=== PATIENT | male | born 1950 | race Caucasian/White ===

== ENCOUNTER 2017-02-23 13:17 | Inpatient (IN) | payer MEDICARE ==
[2017-02-23] VITALS (15 sets, daily range): BP systolic 92–126; BP diastolic 64–84; PULSE 77–100; RESP 16–28; TEMP 98.2–99; O2SAT 65–100
[~2017-02-23] VITALS: Ht 177.8 cm; Wt 92.7 kg
[~2017-02-23 13:17] MED LIST: ADVAI250I INH; ALBU2.5I INH; ASPI81 PO; CRES10TA OR; ENAL5TAB98 PO; FE FCAP2; IPRA0.02 NEB; LASI20TA PO; LORA10TA7 PO; MAGN500T4 PO; NEBUMIS6 INH; OMEP20TA PO; POTA10IN2 PO; PRED10 PO; RIVA20 PO; TOPR50TA PO; VITA1CAP2; Z.0.OXYGENDME NC
[2017-02-23] MEDS: RESP: ALBUTEROL 2.5 MG/IPRATROPIUM 0.5 MG NEB (SCH) INH ×4 (13:30→20:01)
[2017-02-23] MEDS ORDERED: methylPREDNISolone SOD SUCC 125 MG/2 ML VIAL IVP ONE (13:30)
--- NOTE | 2017-02-23 13:34 | PD ---
HPI Chief Complaint: shortness of breath Time Seen by Provider: 13:29 Travel History International Travel<30 days: No Contact w/Intl Traveler<30days: No Traveled to known affect area: No History of Present Illness HPI 66-year-old male complains of shortness of breath. Patient states that the shortness breath started 2 weeks ago. Patient states that she was breath is worse this morning. Patient has history of COPD. Patient has history of CAD status post pacemaker placement. Patient denies any chest pain. Patient denies any fever chills. Patient states that he took steroid inhaler in the past and make the shortness of breath worse. Patient has history hypertension, dyslipidemia. Patient is a smoker. Patient has history of atrial fibrillation PFSH Past Medical History Asthma: No Heart Rhythm Problems: Yes Cancer: No Cardiovascular Problems: Yes (COPD,CHF STENT TO RCA) High Cholesterol: Yes Chest Pain: Yes Congestive Heart Failure: No COPD: Yes Diabetes: No Diminished Hearing: No Endocrine: No Gastrointestinal Disorders: Yes (HX ULCER) Genitourinary: No Hepatitis: No Hiatal Hernia: No Hypertension: Yes Immune Disorder: No Musculoskeletal: Yes (ARTHRITIS) Neurologic: No Psychiatric: No Reproductive: No Respiratory: Yes (COPD, SLEEP APNEA/ NO CPAP) Sleep Apnea: No Thyroid Disease: No Past Surgical History Abdominal Surgery: Yes (APPY) AICD: No Appendectomy: Yes (1998) Body Medical Devices: HARDWARE LEFT FOREARM Cardiac Surgery: Yes (CABG) Coronary Artery Bypass Graft: Yes (2000) Ear Surgery: No Endocrine Surgery: No Eye Surgery: No Genitourinary Surgery: No Gynecologic Surgery: No Joint Replacement: No Oral Surgery: No Pacemaker: No Thoracic Surgery: No Social History Alcohol Use: Yes (6PACK WEEKLY) Tobacco Use: Yes (2PPD FOR 25 YEARS) Substance Use: No Allergies-Medications (Allergen,Severity, Reaction): Coded Allergies: No Known Allergies (Verified , 02/23/17) Reported Meds & Prescriptions Reported Meds & Active Scripts Active Reported Ferocon (Ferrous Fumarate W/ B12-Vit C-) 1 Cap Cap Omeprazole 20 Mg Tab 20 Mg PO DAILY Lisinopril 5 Mg Tab 5 Mg PO DAILY Atorvastatin (Atorvastatin Calcium) 40 Mg Tab 40 Mg PO HS Potassium Chloride ER (Potassium Chloride) 10 Meq Tab 10 Meq PO BID Furosemide 40 Mg Tab 40 Mg PO BID Ipratropium [place] 1 Pow Pow Albuterol Neb (Albuterol Sulfate) 2.5 Mg/3 Ml Neb 2.5 Mg NEB Q4HR NEB While awake Vitamin D3 (Cholecalciferol) 3,000 Unit Tab 3,000 Units PO DAILY Magnesium 500 Mg Tab 500 Mg PO DAILY Metoprolol Tartrate 50 Mg Tab 50 Mg PO BID Clopidogrel (Clopidogrel Bisulfate) 75 Mg Tab 75 Mg PO DAILY Vitamin C (Ascorbic Acid) 1,000 Mg Tab 1,000 Mg PO Claritin (Loratadine) 10 Mg Tab 10 Mg PO DAILY Aspirin 325 Mg Tab 325 Mg PO DAILY Review of Systems General / Constitutional: No: Fever Eyes: No: Visual changes HENT: No: Headaches Cardiovascular: No: Chest Pain or Discomfort Respiratory: Positive: Shortness of Breath, Wheezing Gastrointestinal: No: Abdominal Pain Genitourinary: No: Dysuria Musculoskeletal: No: Pain Skin: No Rash Neurologic: No: Weakness Psychiatric: No: Depression Endocrine: No: Polydipsia Hematologic/Lymphatic: No: Easy Bruising Physical Exam Narrative GENERAL: Well-nourished, well-developed patient. SKIN: Focused skin assessment warm/dry. HEAD: Normocephalic. EYES: No scleral icterus. No injection or drainage. NECK: Supple, trachea midline. No JVD or lymphadenopathy. CARDIOVASCULAR: Regular rate and rhythm without murmurs, gallops, or rubs. RESPIRATORY: Patient had decreased breath sounds bilaterally with expiratory wheezes. No rhonchi. GASTROINTESTINAL: Abdomen soft, non-tender, nondistended. MUSCULOSKELETAL: No cyanosis, or edema. BACK: Nontender without obvious deformity. No CVA tenderness. Neurologic exam normal. Started Data Data Last Documented VS Vital Signs Date Time Temp Pulse Resp B/P Pulse Ox O2 Delivery O2 Flow Rate FiO2 02/23/17 15:45 97 17 107/75 100 Auto-Vent 100 02/23/17 14:20 15 02/23/17 13:28 98.2 Orders Complete Blood Count With Diff (02/23/17 13:26) Comprehensive Metabolic Panel (02/23/17 13:26) Act Partial Throm Time (Ptt) (02/23/17 13:26) Prothrombin Time / Inr (Pt) (02/23/17 13:26) Magnesium (Mg) (02/23/17 13:26) Ckmb (Isoenzyme) Profile (02/23/17 13:26) Troponin I (02/23/17 13:26) Urinalysis - C+S If Indicated (02/23/17 13:26) Influenzae A/B Antigen (02/23/17 13:26) Iv Access Insert/Monitor (02/23/17 13:26) Electrocardiogram (02/23/17 13:26) Ecg Monitoring (02/23/17 13:26) Oximetry (02/23/17 13:26) Oxygen Administration (02/23/17 13:26) Chest, Single Ap (02/23/17 13:26) Sodium Chloride 0.9% Flush (Ns Flush) (02/23/17 13:30) Methylprednisolone So Succ Inj (Solumedr (02/23/17 13:30) Albuterol-Ipratropium Neb (Duoneb Neb) (02/23/17 13:30) Arterial Blood Gas (Abg) (02/23/17 ) CKMB (02/23/17 13:42) CKMB% (02/23/17 13:42) Etomidate Inj (Amidate Inj) (02/23/17 14:30) Rocuronium Inj (Zemuron Inj) (02/23/17 14:30) Propofol 1000 Mg/100 Ml Inj (Diprivan 10 (02/23/17 14:30) ^ Infusion (02/23/17 14:20) RASS (02/23/17 14:20) Neurological Rass Scale MARIEL.Q2H (02/23/17 14:20) Neurological Rass Scale Q30MX2,Q2HX4,Q4H (02/23/17 14:20) Fentanyl Drip (Fentanyl Drip) (02/23/17 14:30) Succinylcholine Inj (Quelicin Inj) (02/23/17 14:21) Propofol 1000 Mg/100 Ml Inj (Diprivan 10 (02/23/17 14:21) Urinary Catheter Insert/Apply (02/23/17 14:45) Torres-Gastric Tube Insert/Mon (02/23/17 14:45) Restraints Non-Violent MARIEL.Q3H (02/23/17 14:45) Cefepime Inj (Maxipime Inj) (02/23/17 15:00) Azithromycin Inj (Zithromax Inj) (02/23/17 15:00) Basic Metabolic Panel (Bmp) (02/23/17 14:57) Fentanyl Drip (Fentanyl Drip) (02/23/17 15:05) Sodium Chlor 0.9% 1000 Ml Inj (Ns 1000 M (02/23/17 16:00) Insulin Human Regular Inj (Novolin R Inj (02/23/17 16:00) Dextrose 50% In [place]bert (Vial) Inj (D50w (Vi (02/23/17 16:00) Calcium Gluconate Inj (Calcium Gluconate (02/23/17 16:00) Admit Order (Ed Use Only) (02/23/17 15:52) Labs Laboratory Tests Test 02/23/17 02/23/17 02/23/17 00:00 13:42 14:30 Blood Gas Puncture Site LT RADIAL Blood Gas Patient Temperature 98.6 Blood Gas HCO3 40 mmol/L Blood Gas Base Excess 10.5 mmol/L Blood Gas Oxygen Saturation 93 % Arterial Blood pH 7.14 Arterial Blood Partial 121 mmHg Pressure CO2 Arterial Blood Partial 141 mmHG Pressure O2 Arterial Blood Oxygen Content 23.9 Vol % Arterial Blood 3.7 % Carboxyhemoglobin Arterial Blood Methemoglobin 0.9 % Blood Gas Hemoglobin 18.2 G/DL Oxygen Delivery Device Non-Rebreathing Mask Blood Gas Liter Flow 15 L/M White Blood Count 7.0 TH/MM3 Red Blood Count 5.61 MIL/MM3 Hemoglobin 17.5 GM/DL Hematocrit 55.4 % Mean Corpuscular Volume 98.7 FL Mean Corpuscular Hemoglobin 31.3 PG Mean Corpuscular Hemoglobin 31.7 % Concent Red Cell Distribution Width 16.6 % Platelet Count 199 TH/MM3 Mean Platelet Volume 8.0 FL Neutrophils (%) (Auto) 69.6 % Lymphocytes (%) (Auto) 10.8 % Monocytes (%) (Auto) 18.9 % Eosinophils (%) (Auto) 0.2 % Basophils (%) (Auto) 0.5 % Neutrophils # (Auto) 4.9 TH/MM3 Lymphocytes # (Auto) 0.8 TH/MM3 Monocytes # (Auto) 1.3 TH/MM3 Eosinophils # (Auto) 0.0 TH/MM3 Basophils # (Auto) 0.0 TH/MM3 CBC Comment DIFF FINAL Differential Comment Prothrombin Time 12.4 SEC Prothromb Time International 1.1 RATIO Ratio Activated Partial 25.9 SEC Thromboplast Time Sodium Level 140 MEQ/L Potassium Level 6.0 MEQ/L Chloride Level 99 MEQ/L Carbon Dioxide Level 37.7 MEQ/L Anion Gap 3 MEQ/L Blood Urea Nitrogen 43 MG/DL Creatinine 2.07 MG/DL Estimat Glomerular Filtration 32 ML/MIN Rate Random Glucose 126 MG/DL Calcium Level 9.0 MG/DL Magnesium Level 3.3 MG/DL Total Bilirubin 0.6 MG/DL Aspartate Amino Transf 28 U/L (AST/SGOT) Alanine Aminotransferase 26 U/L (ALT/SGPT) Alkaline Phosphatase 97 U/L Total Creatine Kinase 158 U/L Creatine Kinase MB 4.1 NG/ML Troponin I 0.04 NG/ML Total Protein 7.0 GM/DL Albumin 3.4 GM/DL Urine Color DARK-YELLOW Urine Turbidity HAZY Urine pH 5.0 Urine Specific [place] 1.019 Urine Protein 100 mg/dL Urine Glucose (UA) NEG mg/dL Urine Ketones TRACE mg/dL Urine Occult Blood NEG Urine Nitrite NEG Urine Bilirubin NEG Urine Urobilinogen 2.0 MG/DL Urine Leukocyte Esterase SMALL Urine RBC 4 /hpf Urine WBC 7 /hpf Urine Squamous Epithelial 1 /hpf Cells Urine Hyaline Casts 107 /lpf Urine Mucus FEW /lpf Microscopic Urinalysis Comment CULT NOT INDICATED MDM Medical Decision Making Medical Screen Exam Complete: Yes Emergency Medical Condition: Yes Interpretation(s) 1456 PM. CBC with WBC 7.0. Hemoglobin 17.5 hematocrit 55.4. Potassium 6.0. Repeat potassium. Bicarbonate 37.7. BUN 43. Creatinine 2.07. GFR 32. Magnesium 3.3. Total CK normal with MB fraction 4.1%. Troponin normal. Differential Diagnosis Differential diagnosis including acute exacerbation COPD, bronchitis, pneumonia , PE, pneumothorax. Narrative Course 66-year-old male with shortness of breath. History of COPD. Albuterol Atrovent unit dose treatment 3. Solu-Medrol 125 mg IV. 1450 p.m. Patient became lethargic and having respiratory distress. Patient was intubated. Propofol for sedation. Cefepime 1 g IV and Zithromax 500 mg IV given. D50 1 amp IV given. Novolin R 10 units IV given. Calcium gluconate 1 g IV. Normal saline solution 1 L IV bolus. Critical Care Narrative Aggregate critical care time was 60 minutes. Time to perform other separately billable procedures was not included in the critical care time. My time did not include minutes spent treating any other patients simultaneously or on activities that did not directly contribute to the patient's treatment. The services I provided to this patient were to treat and/or prevent clinically significant deterioration that could result in: I provided critical care services requiring my management, as noted below: Chart data review, documentation time, medication orders and management, vital sign assessments/reviewing monitor data, ordering and reviewing lab tests, ordering and interpreting/reviewing x-rays and diagnostic studies, care of the patient and discussion of the patient with the admitting physicians. Procedures Procedure Narrative After the risks and benefits were discussed the following procedure was performed: INTUBATION: The patient was put in optimal position for the procedure. Rapid sequence intubation was initiated by me using 20 milligrams of etomidate IV and 50 milligrams of rocuronium IV. The patient was intubated with a 7.5 cuffed endotracheal tube. Tube placement was confirmed by visualization of the tube and balloon passing through the cords, capnometry and subsequent chest x-ray. Breath sounds were equal and well aerated bilaterally postintubation. No breath sounds over stomach. Patient tolerated procedure well. Diagnosis Primary Impression: Acute respiratory failure Qualified Code: J96.02 - Acute respiratory failure with hypercapnia Additional Impression: COPD with acute exacerbation Admitting Information Admitting Physician Requests: Jon Sharma MD Feb 23, 2017 13:34
[2017-02-23 13:54] LABS: AUTOMATED NEUTROPHIL # 4.9 TH/MM3 (1.8-7.7); BASOPHIL % 0.5 % (0.0-2.0); EOSINOPHIL % 0.2 % (0.0-4.0); HEMATOCRIT 55.4 % (39.0-51.0); HEMO FLAGS DIFF FINAL; LYMPH % 10.8 % (9.0-44.0); LYMPHOCYTE # 0.8 TH/MM3 (1.0-4.8); MEAN CELL VOLUME 98.7 FL (80.0-100.0); MEAN CORPUSCULAR HEMOGLOBIN 31.3 PG (27.0-34.0); MEAN CORPUSCULAR HGB CONC 31.7 % (32.0-36.0); MONO % 18.9 % (0.0-8.0); NEUT % 69.6 % (16.0-70.0); PLATELET COUNT 199 TH/MM3 (150-450); RED BLOOD COUNT 5.61 MIL/MM3 (4.50-5.90); RED CELL DISTRIBUTION WIDTH 16.6 % (11.6-17.2)
[2017-02-23 14:03] LABS: APTT (PATIENT) 25.9 SEC (24.3-30.1); INTERNATIONAL NORMALIZED RATIO 1.1 RATIO; PROTHROMBIN TIME - PATIENT 12.4 SEC (9.8-11.6)
[2017-02-23] MEDS ORDERED: VITA10007 PO (14:18)
[2017-02-23] MEDS ORDERED: MAGN500T4 PO (14:18)
[2017-02-23] MEDS ORDERED: METO50TA PO (14:18)
[2017-02-23] MEDS ORDERED: ASPI325T PO (14:18)
[2017-02-23] MEDS ORDERED: IPRA1POW8 (14:18)
[2017-02-23] MEDS ORDERED: VITA3000 PO (14:18)
[2017-02-23] MEDS ORDERED: CLOP75TA PO (14:18)
[2017-02-23] MEDS ORDERED: LORA-361 PO (14:18)
[2017-02-23] MEDS ORDERED: ALBU0.08 NEB (14:18)
[2017-02-23 14:19] LABS: ALKALINE PHOSPHATASE 97 U/L (45-117); ALT (GPT) 26 U/L (12-78); ANION GAP 3 MEQ/L (5-15); AST (GOT) 28 U/L (15-37); BICARBONATE 37.7 MEQ/L (21.0-32.0); BLOOD UREA NITROGEN 43 MG/DL (7-18); CHLORIDE 99 MEQ/L (98-107); CREATINE KINASE 158 U/L (39-308); GLOMERULAR FILTRATION RATE 32 ML/MIN (>89); MAGNESIUM 3.3 MG/DL (1.5-2.5); SODIUM (NA) 140 MEQ/L (136-145); TOTAL BILIRUBIN ADULT 0.6 MG/DL (0.2-1.0)
[2017-02-23] MEDS ORDERED: PROPOFOL 1000 MG/100 ML INJ 100 ML ONE (14:21)
[2017-02-23] MEDS ORDERED: SUCCINYLCHOLINE CHLORIDE 200 MG/10 ML VIAL ONE (14:21)
[2017-02-23] MEDS ORDERED: ROCURONIUM INJ 50 MG/5 ML VIAL IV ONE (14:30)
[2017-02-23] MEDS ORDERED: ETOMIDATE 20 MG/10 ML VIAL IV PUSH ONE (14:30)
[2017-02-23 14:37] LABS: CKMB 4.1 NG/ML (0.5-3.6)
[2017-02-23] MEDS: PROPOFOL 1000 MG/100 ML INJ 100 ML IV SCH ×2 (14:54→19:34)
[2017-02-23] MEDS ORDERED: AZITHROMYCIN INJ 500 MG in SODIUM CHLOR 0.9% 250 ML INJ 250 ML IV ONE (15:00)
[2017-02-23] MEDS ORDERED: CEFEPIME INJ 1,000 MG in SODIUM CHLORIDE 0.9% INJ 100 ML IV ONE (15:00)
--- NOTE | 2017-02-23 15:00 | RADRPT ---
EXAM DATE/TIME: 02/23/2017 14:40 [facility] COMPARISON: CHEST SINGLE AP, April 06, 2015, 4:45. INDICATIONS : Shortness of breath; status-post intubation. MEDICAL HISTORY : Non-responsive. SURGICAL HISTORY : Pacemaker. ENCOUNTER: Initial ACUITY: 1 day PAIN SCORE: Non-responsive. LOCATION: chest FINDINGS: The cardiac silhouette is normal in transverse diameter. Median sternotomy wires are present. A defib rillator device is in place via a left sided approach. Support lines and tubes are in satisfactory po sition. There is prominence of the central pulmonary vasculature with indistinct vascular margins com patible with vascular congestion but no evidence of overt failure. CONCLUSION: 1. Cardiomegaly and findings of vascular congestion without overt failure. Lavell Maciel MD on February 23, 2017 at 14:58 Board Certified Radiologist. This report was verified electronically.
[2017-02-23] MEDS ORDERED: fentaNYL DRIP 250 ML ONE (15:05)
[2017-02-23] MEDS ORDERED: [UNRECOGNIZED DRUG - CODE] (15:10)
[2017-02-23] MEDS ORDERED: FURO40TA PO (15:10)
[2017-02-23] MEDS ORDERED: LISI-519 PO (15:10)
[2017-02-23] MEDS ORDERED: OMEP20TA PO (15:10)
[2017-02-23] MEDS ORDERED: ATOR40TA16 PO (15:10)
[2017-02-23] MEDS ORDERED: POTA10TA2 PO (15:10)
[2017-02-23 15:12] LABS: BLOOD, URINE NEG (NEG); COMMENT (UR) CULT NOT INDICATED; CULTURE IF INDICATED CULT NOT INDICATED; GLUCOSE,URINE NEG (NEG); HYALINE CAST, URINE 107 /lpf (RARE); KETONE, URINE TRACE mg/dL (NEG); MUCUS URINE FEW /lpf (OCC); NITRITE,URINE NEG (NEG); SQUAMOUS EPITHELIAL CELL URINE 1 /hpf (0-5); URINE COLOR DARK-YELLOW (YELLW/STRAW)
[2017-02-23 15:14] LABS: BLOOD GAS BASE EXCESS 10.5 mmol/L (-2-2); BLOOD GAS CARBOXYHEMOGLOBIN 3.7 % (0-4); BLOOD GAS HCO3 40 mmol/L (22-26); BLOOD GAS METHEMOGLOBIN 0.9 % (0-2); BLOOD GAS O2 HGB SATURATION 93 % (90-100); BLOOD GAS OXYGEN CONTENT 23.9 Vol % (12.0-20.0); BLOOD GAS PCO2 121 mmHg (38-42); BLOOD GAS PO2 141 mmHG (61-120); BLOOD GAS TOTAL HGB 18.2 G/DL (12.0-16.0); TEMP CORR TO 98.6
[2017-02-23 15:15] LABS: CRITICAL VALUE YES; DRAW SITE LT RADIAL; LITER FLOW 15 L/M; NUMBER OF ARTERIAL PUNCTURES 1; STAT YES; ULNAR PULSE PRESENT
[2017-02-23] MEDS: fentaNYL DRIP 250 ML IV SCH (15:20)
[2017-02-23] MEDS ORDERED: SODIUM CHLOR 0.9% 1000 ML INJ 1,000 ML IV ONE (16:00)
[2017-02-23] MEDS ORDERED: GLUCAGON 1 MG/ML VIAL OTHER PRN (16:00)
[2017-02-23] MEDS ORDERED: DEXTROSE 50% IN WATER 50 ML VIAL(D50) IV PUSH PRN (16:00)
[2017-02-23] MEDS ORDERED: INSULIN HUMAN REGULAR 1,000 UNITS/10 ML VIAL IV PUSH ONE (16:00)
[2017-02-23] MEDS ORDERED: MISCELLANEOUS NURSING INFORMATION XX SCH (16:00)
[2017-02-23] MEDS ORDERED: CALCIUM GLUCONATE INJ 1 GM in DEXTROSE 5% IN WATER 100ML INJ 100 ML IV ONE ×2 (16:00)
[2017-02-23] MEDS ORDERED: DEXTROSE 50% IN WATER 50 ML VIAL(D50) IV PUSH ONE (16:00)
[2017-02-23] MEDS ORDERED: CHLORHEXIDINE GLUCONATE 2 % 1 PACK (2 CLOTHS) TOP PRN (16:00)
[2017-02-23] MEDS: INSULIN NovoLIN REGULAR SUPPLEMENTAL SCALE SQ SCH ×2 (17:00→23:00)
[2017-02-23] MEDS ORDERED: LEVOFLOXACIN 500 MG PREMIX INJ 100 ML IV SCH (17:00)
[2017-02-23 17:12] LABS: BLOOD GAS CARBOXYHEMOGLOBIN 3.1 % (0-4); BLOOD GAS HCO3 35 mmol/L (22-26); BLOOD GAS METHEMOGLOBIN 0.7 % (0-2); BLOOD GAS O2 HGB SATURATION 90 % (90-100); BLOOD GAS OXYGEN CONTENT 20.7 Vol % (12.0-20.0); BLOOD GAS PCO2 65 mmHg (38-42); BLOOD GAS PO2 71 mmHG (61-120); BLOOD GAS TOTAL HGB 16.5 G/DL (12.0-16.0); TEMP CORR TO 98.6
[2017-02-23 17:13] LABS: CRITICAL VALUE YES; DRAW SITE BR; FIO2 85 %; NUMBER OF ARTERIAL PUNCTURES 1; OXYGEN DEVICE VENTILATOR; STAT NO; ULNAR PULSE PRESENT; VENT SETTINGS AV/16/600/PEEP+5
[2017-02-23] MEDS: HEPARIN SODIUM - SQ 10,000 UNITS/ML VIAL SQ SCH (17:17)
--- NOTE | 2017-02-23 17:51 | MH ---
cc: MIKAEL REESE M.D. DATE OF ADMISSION 02/23/2017 DATE OF 1950 HISTORY OF PRESENT ILLNESS The patient is a 66-year-old male with past medical history of COPD, cardiomyopathy, hypertension, gastroesophageal reflux disease, hyperlipidemia and coronary artery disease. The patient presented to [facility] ED with a 2-week history of progressive worsening shortness of breath. On arrival to the ED he was initially placed on a non-rebreather mask and ABG was performed which showed acute hypercapnic respiratory failure with a pH of 7.14, CO2 121, pAO2 141, bicarb 40, sats 93%. His laboratory data significant for hyperkalemia with potassium level 6.0 and acute renal failure with a BUN of 43 and creatinine 2.07 respectively. The chest x-ray showed cardiomegaly and findings of vascular congestion without overt failure. In the ED the patient was intubated with etomidate and rocuronium and placed on full mechanical ventilation. In addition, he is scheduled to receive 10 units IV regular insulin, 1 amp of D50 and calcium gluconate for hyperkalemia. He received cefepime, azithromycin, Solu-Medrol 125 milligrams IV push and bronchodilator treatment. When seen the patient is on Diprivan infusion for sedation and full mechanical ventilation. Per the patient is not on any oxygen at home and he occasionally smokes cigarettes. PAST MEDICAL HISTORY Past medical history significant for COPD, coronary artery disease with stent to the RCA, cardiomyopathy, arthritis, sleep apnea, however, not on any C-PAP machine at home, hyperlipidemia. PAST SURGICAL HISTORY Previous CABG, previous appendectomy. The previous hardware in left forearm. Previous defibrillator/pacer placement. ALLERGIES NO KNOWN DRUG ALLERGIES. SOCIAL HISTORY Occasional smoker and drinker. FAMILY HISTORY Noncontributory reported MEDICATIONS Medications include: 1. Ferrous Fumarate. 2. Omeprazole. 3. Lisinopril. 4. Simvastatin. 5. Lasix. 6. DuoNeb. 7. Vitamin D3. 8. Plavix. 9. Vitamin C. 10. Aspirin. FAMILY HISTORY Noncontributory. REVIEW OF SYSTEMS As per HPI. Rest of the review of systems limited as patient is intubated. PHYSICAL EXAMINATION GENERAL: A 66-year-old male intubated for acute hypercapnic and hypoxemic respiratory failure. VITAL SIGNS: Temperature 98.2, pulse 82, blood pressure 123/72, saturation 95%. Vent setting assist control rate of 16, tidal volume 600, PEEP of 5, FIO2 50%. HEENT: Atraumatic, normocephalic. Pupils equal, round and reactive to light and accommodation. Extraocular muscles intact. Conjunctivae pink. Nonicteric sclerae. Oral mucosa within normal. NECK: Supple. No JVD, adenopathy or thyromegaly. Trachea in the midline. CARDIOVASCULAR: Regular rate and rhythm. Normal S1-S2. No murmurs, rubs or gallops noted. PULMONARY EXAMINATION: Bilateral equal air entry. No crackles. ABDOMEN: Soft, obese, nontender, no distension. Positive bowel sounds. EXTREMITIES: No cyanosis, clubbing, trace edema. NEURO: Intubated, sedated with Diprivan. LABORATORY DATA Sodium 140, calcium 6, chloride 99, CO2 of 47, BUN 43, creatinine 2.07, glucose of 126, AST 28, ALT 26, total bilirubin 0.6, alk phos 158, troponin 0.040, total CK 158, WBC 7, hemoglobin 17.5, hematocrit 55, platelet count 199, INR 1.1, PT 12.4, PTT 25.9. Urinalysis showed small leukocyte esterase, 7 WBC, 4 RBCs. RADIOGRAPHIC STUDIES Chest x-ray showed cardiomegaly and findings of vascular congestion without overt failure. IMPRESSION 1. Acute hypercapnic and hypoxemic respiratory failure. 2. COPD exacerbation. 3. Acute renal failure. 4. Hyperkalemia. 5. Obstructive sleep apnea and morbid obesity. 6. Cardiomyopathy. 7. History of coronary artery disease. 8. Gastroesophageal reflux disease. 9. Hypertension. 10. Hyperlipidemia. RECOMMENDATIONS 1. Continue with Diprivan infusion for sedation and daily sedation vacation when appropriate. 2. Continue with vent support and maintain sats above 92%. 3. Bronchodilators in the form of DuoNeb q. 6 and will initiate an ICU vent bundle. 4. Continue with IV steroids in the form of Solu-Medrol 60 milligrams IV q. 8. 5. Will check chest x-ray and ABG postintubation. 6. Monitor renal function Is and Os and avoid nephrotoxins. The patient was given 1 liter bowl of normal saline in the ED. Will give an additional [address] on maintenance fluids NS at 100 an hour. 7. Will continue with aspirin 325 milligrams p.o. daily and Plavix 75 milligrams p.o. daily. Will obtain a 2-D echo to evaluate LV function. 8. Monitor renal function Is and Os and avoid nephrotoxins. He is being treated for hyperkalemia in the ED with 10 units of IV insulin, 1 ampule of D50 and calcium gluconate. Will repeat BMP and continue with IV fluids as stated above. 9. Keep n.p.o. for now and place on Protonix 40 milligrams IV daily for GI prophylaxis. 10. Will continue with empiric antibiotics, Levaquin and monitor for signs of infections which include fever and WBC. 11. Monitor CBC. 12. Place on sliding scale insulin with Accu-Chek q. 6-hour for glycemic control. 13. GI prophylaxis with Protonix 40 milligrams daily and DVT prophylaxis with SCDs and heparin subcu. 14. Further recommendations will be based on hospital course. 15. Critical care time 40 minutes excluding procedures. MD JANENE Soto/JAYSON /5:05 PM /5:23 PM MTDD
[2017-02-23] MEDS: PANTOPRAZOLE SODIUM 40 MG VIAL IV SCH (18:09)
[2017-02-23] MEDS: SODIUM CHLOR 0.9% 1000 ML INJ 1,000 ML IV SCH (19:37)
[2017-02-23] MEDS: ATORVASTATIN 40 MG TAB PO SCH (21:02)
[2017-02-23] MEDS: methylPREDNISolone SOD SUCC 40 MG/1 ML VIAL IV PUSH SCH (21:02)
[2017-02-23 21:43] LABS: BICARBONATE 34.5 MEQ/L (21.0-32.0); POTASSIUM 5.4 MEQ/L (3.5-5.1)
[2017-02-23 22:57] LABS: BLOOD GAS BASE EXCESS 7.7 mmol/L (-2-2); BLOOD GAS CARBOXYHEMOGLOBIN 2.3 % (0-4); BLOOD GAS HCO3 33 mmol/L (22-26); BLOOD GAS METHEMOGLOBIN 1.3 % (0-2); BLOOD GAS O2 HGB SATURATION 87 % (90-100); BLOOD GAS OXYGEN CONTENT 20.4 Vol % (12.0-20.0); BLOOD GAS PCO2 61 mmHg (38-42); BLOOD GAS PO2 65 mmHg (61-120); BLOOD GAS TOTAL HGB 16.6 G/DL (12.0-16.0); TEMP CORR TO 98.6
[2017-02-23 22:58] LABS: CRITICAL VALUE YES; DRAW SITE RT RADIAL; FIO2 90 %; NUMBER OF ARTERIAL PUNCTURES 1; OXYGEN DEVICE VENTILATOR; STAT NO; ULNAR PULSE PRESENT; VENT SETTINGS AC14/600/PEEP5
[2017-02-24] VITALS (18 sets, daily range): BP systolic 85–104; BP diastolic 57–65; PULSE 69–105; RESP 12–14; TEMP 98.2–98.7; O2SAT 87–91
[2017-02-24] MEDS ORDERED: FUROSEMIDE 40 MG/4 ML VIAL IV PUSH ONE (01:00)
[2017-02-24] MEDS ORDERED: FUROSEMIDE 40 MG/4 ML VIAL ONE (01:00)
[2017-02-24] MEDS: RESP: ALBUTEROL 2.5 MG/IPRATROPIUM 0.5 MG NEB (SCH) INH ×4 (01:08→20:35)
[2017-02-24] MEDS: SODIUM CHLOR 0.9% 1000 ML INJ 1,000 ML IV SCH (02:11)
[2017-02-24] MEDS: CHLORHEXIDINE GLUCONATE 2 % 1 PACK (2 CLOTHS) TOP SCH (02:12)
[2017-02-24] MEDS ORDERED: FUROSEMIDE 20 MG/2 ML VIAL IV PUSH ONE (02:15)
--- NOTE | 2017-02-24 03:17 | RADRPT ---
EXAM DATE/TIME: 02/24/2017 01:54 [facility] COMPARISON: CHEST SINGLE AP, February 23, 2017, 14:40. INDICATIONS : Shortness of breath, possible pulmonary disease. MEDICAL HISTORY : None. SURGICAL HISTORY : Pacemaker. ENCOUNTER: Subsequent ACUITY: 2 days PAIN SCORE: Non-responsive. LOCATION: Bilateral chest FINDINGS: Portable AP view of the chest demonstrate stable enlargement of the cardiac silhouette. ETT and nasog astric tube remain present. Patient is post median sternotomy and multiple clips overlie the mediasti num. Left chest wall cardiac pacing device S. AICD is present. There is new. Hilar and lower lung zon e airspace opacity with a likely right pleural effusion. No pneumothorax is visualized. CONCLUSION: 1. Interval development of bilateral perihilar and lower lung zone airspace opacity. The appearance a nd distribution suggest pulmonary edema as the cause. 2. Suspected right pleural effusion. 3. Stable enlargement of the cardiac silhouette. Nick Landis MD on February 24, 2017 at 3:15 Board Certified Radiologist. This report was verified electronically.
[2017-02-24] MEDS: methylPREDNISolone SOD SUCC 40 MG/1 ML VIAL IV PUSH SCH ×3 (04:32→22:28)
[2017-02-24] MEDS: HEPARIN SODIUM - SQ 10,000 UNITS/ML VIAL SQ SCH ×2 (04:33→16:30)
[2017-02-24 04:56] LABS: AUTOMATED NEUTROPHIL # 4.8 TH/MM3 (1.8-7.7); BASOPHIL % 0.4 % (0.0-2.0); HEMATOCRIT 50.4 % (39.0-51.0); HEMO FLAGS DIFF FINAL; LYMPH % 3.4 % (9.0-44.0); LYMPHOCYTE # 0.2 TH/MM3 (1.0-4.8); MEAN CELL VOLUME 97.4 FL (80.0-100.0); MEAN CORPUSCULAR HEMOGLOBIN 31.5 PG (27.0-34.0); MEAN CORPUSCULAR HGB CONC 32.3 % (32.0-36.0); MONO % 4.5 % (0.0-8.0); NEUT % 91.7 % (16.0-70.0); PLATELET COUNT 170 TH/MM3 (150-450); RED BLOOD COUNT 5.18 MIL/MM3 (4.50-5.90); RED CELL DISTRIBUTION WIDTH 16.3 % (11.6-17.2); WHITE BLOOD COUNT 5.3 TH/MM3 (4.0-11.0)
[2017-02-24] MEDS: INSULIN NovoLIN REGULAR SUPPLEMENTAL SCALE SQ SCH ×4 (05:00→22:34)
[2017-02-24 05:09] LABS: BICARBONATE 33.2 MEQ/L (21.0-32.0); POTASSIUM 5.5 MEQ/L (3.5-5.1)
[2017-02-24] MEDS: fentaNYL DRIP 250 ML IV SCH ×2 (05:41→22:29)
--- NOTE | 2017-02-24 07:41 | HHI.CCPN ---
Subjective Remarks/Hospital Course The patient is a 66-year-old male with past medical history of COPD, cardiomyopathy, hypertension, gastroesophageal reflux disease, hyperlipidemia and coronary artery disease. The patient presented to [facility] ED with a 2-week history of progressive worsening shortness of breath. On arrival to the ED he was initially placed on a non-rebreather mask and ABG was performed which showed acute hypercapnic respiratory failure with a pH of 7.14, CO2 121, pAO2 141, bicarb 40, sats 93%. His laboratory data significant for hyperkalemia with potassium level 6.0 and acute renal failure with a BUN of 43 and creatinine 2.07 respectively. The chest x-ray showed cardiomegaly and findings of vascular congestion without overt failure. In the ED the patient was intubated with etomidate and rocuronium and placed on full mechanical ventilation. In addition, he is scheduled to receive 10 units IV regular insulin, 1 amp of D50 and calcium gluconate for hyperkalemia. He received cefepime, azithromycin, Solu-Medrol 125 milligrams IV push and bronchodilator treatment. When seen the patient is on Diprivan infusion for sedation and full mechanical ventilation. Per the patient is not on any oxygen at home and he occasionally smokes cigarettes. 02/24 Patient is intubated and sedated with Diprivan and Fentanyl. Switched to PC/ AC with RR 12, IP:24, IT:1.06, PEEP: 8 and FIO2 100%. CXR this morning showed interval development of bilateral perihilar and lower lung zone airspace opacity he was given Lasix 60mg total overnight. Objective Vital Signs Date Time Temp Pulse Resp B/P Pulse Ox O2 Delivery O2 Flow Rate FiO2 02/24/17 06:00 102 02/24/17 04:19 87 100 02/24/17 04:00 98.3 12 99/65 02/23/17 18:00 Ventilator 02/23/17 14:20 15 Intake and Output 02/23/17 02/23/17 02/24/17 08:00 16:00 00:00 Intake Total 721 ml Output Total 200 ml Balance 521 ml Result Diagram: 02/24/17 0412 02/24/17 0412 Other Results Laboratory Tests Test 02/23/17 02/23/17 02/23/17 02/23/17 13:42 14:30 17:08 19:00 White Blood Count 7.0 TH/MM3 Red Blood Count 5.61 MIL/MM3 Hemoglobin 17.5 GM/DL Hematocrit 55.4 % Mean Corpuscular Volume 98.7 FL Mean Corpuscular Hemoglobin 31.3 PG Mean Corpuscular Hemoglobin 31.7 % Concent Red Cell Distribution Width 16.6 % Platelet Count 199 TH/MM3 Mean Platelet Volume 8.0 FL Neutrophils (%) (Auto) 69.6 % Lymphocytes (%) (Auto) 10.8 % Monocytes (%) (Auto) 18.9 % Eosinophils (%) (Auto) 0.2 % Basophils (%) (Auto) 0.5 % Neutrophils # (Auto) 4.9 TH/MM3 Lymphocytes # (Auto) 0.8 TH/MM3 Monocytes # (Auto) 1.3 TH/MM3 Eosinophils # (Auto) 0.0 TH/MM3 Basophils # (Auto) 0.0 TH/MM3 CBC Comment DIFF FINAL Differential Comment Prothrombin Time 12.4 SEC Prothromb Time International 1.1 RATIO Ratio Activated Partial 25.9 SEC Thromboplast Time Sodium Level 140 MEQ/L Potassium Level 6.0 MEQ/L Chloride Level 99 MEQ/L Carbon Dioxide Level 37.7 MEQ/L Anion Gap 3 MEQ/L Blood Urea Nitrogen 43 MG/DL Creatinine 2.07 MG/DL Estimat Glomerular Filtration 32 ML/MIN Rate Random Glucose 126 MG/DL Calcium Level 9.0 MG/DL Magnesium Level 3.3 MG/DL Total Bilirubin 0.6 MG/DL Aspartate Amino Transf 28 U/L (AST/SGOT) Alanine Aminotransferase 26 U/L (ALT/SGPT) Alkaline Phosphatase 97 U/L Total Creatine Kinase 158 U/L Creatine Kinase MB 4.1 NG/ML Troponin I 0.04 NG/ML Total Protein 7.0 GM/DL Albumin 3.4 GM/DL Urine Color DARK-YELLOW Urine Turbidity HAZY Urine pH 5.0 Urine Specific [place] 1.019 Urine Protein 100 mg/dL Urine Glucose (UA) NEG mg/dL Urine Ketones TRACE mg/dL Urine Occult Blood NEG Urine Nitrite NEG Urine Bilirubin NEG Urine Urobilinogen 2.0 MG/DL Urine Leukocyte Esterase SMALL Urine RBC 4 /hpf Urine WBC 7 /hpf Urine Squamous Epithelial 1 /hpf Cells Urine Hyaline Casts 107 /lpf Urine Mucus FEW /lpf Microscopic Urinalysis Comment CULT NOT INDICATED Blood Gas Puncture Site BR Blood Gas Patient Temperature 98.6 Blood Gas HCO3 35 mmol/L Blood Gas Base Excess 9.0 mmol/L Blood Gas Oxygen Saturation 90 % Arterial Blood pH 7.35 Arterial Blood Partial 65 mmHg Pressure CO2 Arterial Blood Partial 71 mmHG Pressure O2 Arterial Blood Oxygen Content 20.7 Vol % Arterial Blood 3.1 % Carboxyhemoglobin Arterial Blood Methemoglobin 0.7 % Blood Gas Hemoglobin 16.5 G/DL Oxygen Delivery Device VENTILATOR Blood Gas Ventilator Setting AV/16/600/PEEP+5 Blood Gas Inspired Oxygen 85 % Nasal Screen MRSA (PCR) NEGATIVE Test 02/23/17 02/23/17 02/24/17 20:58 22:48 04:12 Sodium Level 141 MEQ/L 142 MEQ/L Potassium Level 5.4 MEQ/L 5.5 MEQ/L Chloride Level 102 MEQ/L 103 MEQ/L Carbon Dioxide Level 34.5 MEQ/L 33.2 MEQ/L Anion Gap 5 MEQ/L 6 MEQ/L Blood Urea Nitrogen 42 MG/DL 42 MG/DL Creatinine 1.68 MG/DL 1.72 MG/DL Estimat Glomerular Filtration 41 ML/MIN 40 ML/MIN Rate Random Glucose 160 MG/DL 127 MG/DL Calcium Level 8.3 MG/DL 8.9 MG/DL Blood Gas Puncture Site RT RADIAL Blood Gas Patient Temperature 98.6 Blood Gas HCO3 33 mmol/L Blood Gas Base Excess 7.7 mmol/L Blood Gas Oxygen Saturation 87 % Arterial Blood pH 7.35 Arterial Blood Partial 61 mmHg Pressure CO2 Arterial Blood Partial 65 mmHg Pressure O2 Arterial Blood Oxygen Content 20.4 Vol % Arterial Blood 2.3 % Carboxyhemoglobin Arterial Blood Methemoglobin 1.3 % Blood Gas Hemoglobin 16.6 G/DL Oxygen Delivery Device VENTILATOR Blood Gas Ventilator Setting AC14/600/PEEP5 Blood Gas Inspired Oxygen 90 % White Blood Count 5.3 TH/MM3 Red Blood Count 5.18 MIL/MM3 Hemoglobin 16.3 GM/DL Hematocrit 50.4 % Mean Corpuscular Volume 97.4 FL Mean Corpuscular Hemoglobin 31.5 PG Mean Corpuscular Hemoglobin 32.3 % Concent Red Cell Distribution Width 16.3 % Platelet Count 170 TH/MM3 Mean Platelet Volume 7.9 FL Neutrophils (%) (Auto) 91.7 % Lymphocytes (%) (Auto) 3.4 % Monocytes (%) (Auto) 4.5 % Eosinophils (%) (Auto) 0.0 % Basophils (%) (Auto) 0.4 % Neutrophils # (Auto) 4.8 TH/MM3 Lymphocytes # (Auto) 0.2 TH/MM3 Monocytes # (Auto) 0.2 TH/MM3 Eosinophils # (Auto) 0.0 TH/MM3 Basophils # (Auto) 0.0 TH/MM3 CBC Comment DIFF FINAL Differential Comment Imaging Last Impressions Chest X-Ray 02/24/17 0000 Signed Impressions: Service Date/Time: Friday, February 24, 2017 01:54 - CONCLUSION: 1. Interval development of bilateral perihilar and lower lung zone airspace opacity. The appearance and distribution suggest pulmonary edema as the cause. 2. Suspected right pleural effusion. 3. Stable enlargement of the cardiac silhouette. Nick Landis MD Objective Remarks GENERAL: Patient is 66 yo intubated and sedated. SKIN: Warm and dry. HEAD: Normocephalic. EYES: No scleral icterus. No injection or drainage. NECK: Supple, trachea midline. No JVD or lymphadenopathy. CARDIOVASCULAR: Regular rate and rhythm without murmurs, gallops, or rubs. RESPIRATORY: Breath sounds equal bilaterally. No accessory muscle use. GASTROINTESTINAL: Abdomen soft, non-tender, nondistended. MUSCULOSKELETAL: No cyanosis, or edema. Neuro: Sedated and intubated A/P Assessment and Plan 1. Acute hypercapnic and hypoxemic respiratory failure. 2. COPD exacerbation. 3. Acute renal failure. 4. Hyperkalemia. 5. Obstructive sleep apnea and morbid obesity. 6. Cardiomyopathy. 7. History of coronary artery disease. 8. Gastroesophageal reflux disease. 9. Hypertension. 10. Hyperlipidemia. 11 Pulm edema Plan: Neuro: On Diprivan and Fentnayl infusion for sedation. Daily sedation vacation when appropriate. CV: Monitor HR and BP keep MAP>65mmHg On aspirin 325 milligrams p.o. daily and Plavix 75 mg p.o. daily. Check 2-D echo to evaluate LV function. Pulm: On PC/AC RR 12, IP:24, IT:1.06, PEEP: 8, FIO2: 100%, increase PEEP: 12 Continue with vent support and maintain sats above 92%. Bronchodilators, Solu-Medrol 60 milligrams IV q. 8. CXR showed development of bilateral perihilar and lower lung zone airspace opacity suggesting pulmonary edema as the cause. Patient was given Lasix 60mg total overnight. : Monitor renal function Is and Os and avoid nephrotoxins. Will give Kayexalate 30gms x1 for K 5.5 Cr: 1.72 today from 2.07 on arrival. Diurese with Bumex 1mg x1 for pulm edema GI: On Protonix 40 milligrams IV daily for GI prophylaxis. Start TF- Glucerna 1.5 with goal rate 45ml/hr Senna, Colace for bowel regimen ID: continue with empiric abx(Levaquin) and monitor for signs of infections( fever and WBC) Follow up on sputum cx. Heme: Monitor CBC. Endo: SSI with Accu-Chek q. 6-hour for glycemic control. GI prophylaxis with Protonix 40 milligrams daily and DVT prophylaxis with SCDs and heparin subcu. CCT 30 mins Georgia Ocampo MD Feb 24, 2017 07:41
[2017-02-24] MEDS ORDERED: BUMETANIDE INJ 1 MG/4 ML VIAL IV PUSH ONE (07:45)
[2017-02-24] MEDS ORDERED: SODIUM POLYSTYRENE SULFONATE SUSP 15 GM/60 ML CUP PO ONE (07:45)
[2017-02-24] MEDS: SENNOSIDES SYRUP 8.8 MG/5 ML CUP PO SCH (08:06)
[2017-02-24] MEDS: DOCUSATE SODIUM 100 MG/10 ML UDC PO SCH ×2 (08:06→22:29)
[2017-02-24] MEDS: PANTOPRAZOLE SODIUM 40 MG VIAL IV SCH (08:06)
[2017-02-24] MEDS: CLOPIDOGREL 75 MG TAB PO SCH (08:06)
[2017-02-24] MEDS: PROPOFOL 1000 MG/100 ML INJ 100 ML IV SCH ×3 (08:08→22:28)
[2017-02-24] MEDS: ASPIRIN 325 MG TAB PO SCH (08:17)
--- NOTE | 2017-02-24 11:53 | RADRPT ---
EXAM DATE/TIME: 02/24/2017 10:43 [facility] COMPARISON: No previous studies available for comparison. INDICATIONS : Evaluate for ileus. MEDICAL HISTORY : None. SURGICAL HISTORY : None. ENCOUNTER: Initial ACUITY: 1 day PAIN SCORE: Non-responsive. LOCATION: Bilateral abdomen. FINDINGS: Nasogastric tube is just across the GE junction. Examination is limited by the patient's body habitu s. Minimal gas-filled nondilated loops of large and small bowel are noted in a nonspecific fashion. CONCLUSION: 1. Nasogastric tube just across the GE junction. 2. Minimal nonspecific bowel gas dilatation. Artur Bob MD FACR on February 24, 2017 at 11:47 Board Certified Radiologist. This report was verified electronically.
[2017-02-24] MEDS: LEVOFLOXACIN/DEXTROSE 250 MG/50 ML IV SCH (16:30)
[2017-02-24] MEDS: ATORVASTATIN 40 MG TAB PO SCH (22:29)
[2017-02-25] VITALS (17 sets, daily range): BP systolic 89–127; BP diastolic 57–77; PULSE 75–106; RESP 12–15; TEMP 97.5–98.7; O2SAT 86–92
[2017-02-25] MEDS: PROPOFOL 1000 MG/100 ML INJ 100 ML IV SCH ×5 (03:38→19:58)
[2017-02-25] MEDS: HEPARIN SODIUM - SQ 10,000 UNITS/ML VIAL SQ SCH ×2 (03:39→16:49)
[2017-02-25] MEDS: CHLORHEXIDINE GLUCONATE 2 % 1 PACK (2 CLOTHS) TOP SCH (03:39)
[2017-02-25] MEDS: methylPREDNISolone SOD SUCC 40 MG/1 ML VIAL IV PUSH SCH ×3 (03:39→19:58)
[2017-02-25] MEDS: RESP: ALBUTEROL 2.5 MG/IPRATROPIUM 0.5 MG NEB (SCH) INH ×4 (04:21→19:43)
[2017-02-25] MEDS: INSULIN NovoLIN REGULAR SUPPLEMENTAL SCALE SQ SCH ×4 (05:00→23:00)
[2017-02-25 05:38] LABS: AUTOMATED NEUTROPHIL # 11.2 TH/MM3 (1.8-7.7); HEMO FLAGS DIFF FINAL; LYMPH % 1.5 % (9.0-44.0); LYMPHOCYTE # 0.2 TH/MM3 (1.0-4.8); MEAN CORPUSCULAR HGB CONC 31.9 % (32.0-36.0); MONO % 5.3 % (0.0-8.0); NEUT % 93.2 % (16.0-70.0); PLATELET COUNT 183 TH/MM3 (150-450); RED BLOOD COUNT 5.15 MIL/MM3 (4.50-5.90)
[2017-02-25 06:26] LABS: BICARBONATE 33.4 MEQ/L (21.0-32.0); POTASSIUM 4.9 MEQ/L (3.5-5.1)
[2017-02-25] MEDS: CLOPIDOGREL 75 MG TAB PO SCH (07:57)
[2017-02-25] MEDS: PANTOPRAZOLE SODIUM 40 MG VIAL IV SCH (07:57)
[2017-02-25] MEDS: DOCUSATE SODIUM 100 MG/10 ML UDC PO SCH ×2 (07:57→19:58)
[2017-02-25] MEDS: SENNOSIDES SYRUP 8.8 MG/5 ML CUP PO SCH (07:58)
--- NOTE | 2017-02-25 08:37 | HHI.CCPN ---
Subjective Remarks/Hospital Course The patient is a 66-year-old male with past medical history of COPD, cardiomyopathy, hypertension, gastroesophageal reflux disease, hyperlipidemia and coronary artery disease. The patient presented to [facility] ED with a 2-week history of progressive worsening shortness of breath. On arrival to the ED he was initially placed on a non-rebreather mask and ABG was performed which showed acute hypercapnic respiratory failure with a pH of 7.14, CO2 121, pAO2 141, bicarb 40, sats 93%. His laboratory data significant for hyperkalemia with potassium level 6.0 and acute renal failure with a BUN of 43 and creatinine 2.07 respectively. The chest x-ray showed cardiomegaly and findings of vascular congestion without overt failure. In the ED the patient was intubated with etomidate and rocuronium and placed on full mechanical ventilation. In addition, he is scheduled to receive 10 units IV regular insulin, 1 amp of D50 and calcium gluconate for hyperkalemia. He received cefepime, azithromycin, Solu-Medrol 125 milligrams IV push and bronchodilator treatment. When seen the patient is on Diprivan infusion for sedation and full mechanical ventilation. Per the patient is not on any oxygen at home and he occasionally smokes cigarettes. 02/24 Patient is intubated and sedated with Diprivan and Fentanyl. Switched to PC/ AC with RR 12, IP:24, IT:1.06, PEEP: 8 and FIO2 100%. CXR this morning showed interval development of bilateral perihilar and lower lung zone airspace opacity he was given Lasix 60mg total overnight. 02/25 Patient remains sedated and intubated with Diprivan and Fentanyl. Afebrile.On PC/AC with RR 12, IP:22, IT:1.10, PEEP:10, FIO2 70%. Afebrile. Renal function worse today with Cr: 1.90 from 1.72 UO: 1150ml in 24 hrs Objective Vital Signs Date Time Temp Pulse Resp B/P Pulse Ox O2 Delivery O2 Flow Rate FiO2 02/25/17 06:00 105 02/25/17 04:22 91 70 02/25/17 04:00 98.1 14 102/63 02/23/17 18:00 Ventilator 02/23/17 14:20 15 Intake and Output 02/24/17 02/24/17 02/25/17 08:00 16:00 00:00 Intake Total 222 ml 619 ml 1484 ml Output Total 250 ml 300 ml 350 ml Balance -28 ml 319 ml 1134 ml Result Diagram: 02/25/17 0441 02/25/17 0441 Other Results Laboratory Tests Test 02/25/17 04:41 White Blood Count 12.0 TH/MM3 Red Blood Count 5.15 MIL/MM3 Hemoglobin 16.0 GM/DL Hematocrit 50.0 % Mean Corpuscular Volume 97.0 FL Mean Corpuscular Hemoglobin 31.0 PG Mean Corpuscular Hemoglobin 31.9 % Concent Red Cell Distribution Width 16.0 % Platelet Count 183 TH/MM3 Mean Platelet Volume 8.2 FL Neutrophils (%) (Auto) 93.2 % Lymphocytes (%) (Auto) 1.5 % Monocytes (%) (Auto) 5.3 % Eosinophils (%) (Auto) 0.0 % Basophils (%) (Auto) 0.0 % Neutrophils # (Auto) 11.2 TH/MM3 Lymphocytes # (Auto) 0.2 TH/MM3 Monocytes # (Auto) 0.6 TH/MM3 Eosinophils # (Auto) 0.0 TH/MM3 Basophils # (Auto) 0.0 TH/MM3 CBC Comment DIFF FINAL Differential Comment Sodium Level 142 MEQ/L Potassium Level 4.9 MEQ/L Chloride Level 102 MEQ/L Carbon Dioxide Level 33.4 MEQ/L Anion Gap 7 MEQ/L Blood Urea Nitrogen 55 MG/DL Creatinine 1.90 MG/DL Estimat Glomerular Filtration 35 ML/MIN Rate Random Glucose 133 MG/DL Calcium Level 8.8 MG/DL Imaging Last Impressions Chest X-Ray 02/24/17 0000 Signed Impressions: Service Date/Time: Friday, February 24, 2017 01:54 - CONCLUSION: 1. Interval development of bilateral perihilar and lower lung zone airspace opacity. The appearance and distribution suggest pulmonary edema as the cause. 2. Suspected right pleural effusion. 3. Stable enlargement of the cardiac silhouette. Nick Landis MD Abdomen X-Ray 02/24/17 0000 Signed Impressions: Service Date/Time: Friday, February 24, 2017 10:43 - CONCLUSION: 1. Nasogastric tube just across the GE junction. 2. Minimal nonspecific bowel gas dilatation. Artur Bob MD FACR Objective Remarks GENERAL: Patient is 66 yo intubated and sedated. SKIN: Warm and dry. HEAD: Normocephalic. EYES: No scleral icterus. No injection or drainage. NECK: Supple, trachea midline. No JVD or lymphadenopathy. CARDIOVASCULAR: Regular rate and rhythm without murmurs, gallops, or rubs. RESPIRATORY: Breath sounds equal bilaterally. No accessory muscle use. GASTROINTESTINAL: Abdomen soft, non-tender, nondistended. MUSCULOSKELETAL: No cyanosis, or edema. Neuro: Sedated and intubated A/P Assessment and Plan 1. Acute hypercapnic and hypoxemic respiratory failure. 2. COPD exacerbation. 3. Acute renal failure. 4. Hyperkalemia. 5. Obstructive sleep apnea and morbid obesity. 6. Cardiomyopathy. 7. History of coronary artery disease. 8. Gastroesophageal reflux disease. 9. Hypertension. 10. Hyperlipidemia. 11 Pulm edema Plan: Neuro: On Diprivan and Fentanyl infusion for sedation. Daily sedation vacation when appropriate. CV: Monitor HR and BP keep MAP>65mmHg On aspirin 325 milligrams p.o. daily and Plavix 75 mg p.o. daily. For 2-D echo to evaluate LV function. Pulm: On PC/AC RR 12, IP:24, IT:1.06, PEEP: 10, FIO2: 70%, increase PEEP: 12 Continue with vent support and maintain sats above 92%. Bronchodilators, Solu-Medrol 60 mg IV q. 8. Check CXR : Monitor renal function Is and Os and avoid nephrotoxins. Renal function slighlty worse today with Cr: 1.90 from 1.72 UO 1150ml in 24hrs Diurese with Bumex 1mg x1 GI: On Protonix 40 milligrams IV daily for GI prophylaxis. On TF- Glucerna 1.5 with goal rate 45ml/hr Senna, Colace for bowel regimen ID: continue with empiric abx(Levaquin) and monitor for signs of infections( fever and WBC) Follow up on sputum cx. Heme: Monitor CBC. Endo: SSI with Accu-Chek q. 6-hour for glycemic control. GI prophylaxis with Protonix 40 mg daily and DVT prophylaxis with SCDs and heparin subcu. CCT 30 mins Georgia Ocampo MD Feb 25, 2017 08:37
[2017-02-25] MEDS: ASPIRIN 325 MG TAB PO SCH (09:00)
--- NOTE | 2017-02-25 09:44 | RADRPT ---
EXAM DATE/TIME: 02/25/2017 08:49 [facility] COMPARISON: CHEST SINGLE AP, February 24, 2017, 1:54. INDICATIONS : Evaluate respiratory status. MEDICAL HISTORY : Cardiovascular disease. SURGICAL HISTORY : Pacemaker. ENCOUNTER: Subsequent ACUITY: 4 - 6 days PAIN SCORE: Non-responsive. LOCATION: Bilateral chest FINDINGS: Pacer is in good position. ET tube and nasogastric tube are in good position. Heart is enlarged. M ild interstitial edema is present. There is no pleural effusion. CONCLUSION: Cardiomegaly with persistent congestive failure. Artur Bob MD FACR on February 25, 2017 at 9:41 Board Certified Radiologist. This report was verified electronically.
[2017-02-25] MEDS ORDERED: BUMETANIDE INJ 1 MG/4 ML VIAL IV PUSH ONE ×2 (10:15→20:00)
[2017-02-25] MEDS: cefTRIAXone INJ 1,000 MG in SODIUM CHLORIDE 0.9% INJ 100 ML IV SCH (14:00)
[2017-02-25] MEDS: LEVOFLOXACIN/DEXTROSE 250 MG/50 ML IV SCH (16:49)
[2017-02-25] MEDS: fentaNYL DRIP 250 ML IV SCH (16:55)
[2017-02-25] MEDS: ATORVASTATIN 40 MG TAB PO SCH (19:58)
[2017-02-25] MEDS ORDERED: ALBUMIN HUMAN 5% 12.5 GM/250 ML BOTTLE IV ONE (20:00)
--- NOTE | 2017-02-25 21:35 | EKG ---
Date Performed: 02/23/2017 Time Performed: 14:51:31 PTAGE: 66 years EKG: ECTOPIC ATRIAL RHYTHM WITH FIRST DEGREE AV BLOCK WITH OCCASIONAL SUPRAVENTRICULAR PREMATURE COMPLEXES POSSIBLE RIGHT VENTRICULAR HYPERTROPHY ANTEROLATERAL MYOCARDIAL INFARCTION ABNORMAL ECG PREVIOUS TRACING : 04/05/2015 12.22 DOCTOR: Matteo Dave Interpretating Date/Time 02/25/2017 21:32:24
--- NOTE | 2017-02-25 23:02 | EC ---
Study Study Date:02/24/2017 STUDY CONCLUSIONS SUMMARY - Left ventricle: The cavity size was normal. Wall thickness was normal. Systolic function was mildly to moderately reduced. The estimated ejection fraction was in the range of 40% to 45%. Wall motion was normal; there were no regional wall motion abnormalities. Left ventricular diastolic function parameters were normal. - Pulmonary arteries: PA peak pressure: 43mm Hg (S). If LV function is below 40, please consider prescribing an ACEI or ARB or document rationale for non-use. PROCEDURE DATA STUDY STATUS: Elective. Procedure: Transthoracic echocardiography. Image quality was good. Scanning was performed from the parasternal, apical, and subcostal acoustic windows. Study completion: The patient tolerated the procedure well. Transthoracic echocardiography. M-mode, complete 2D, complete spectral Doppler, and color Doppler. Patient status: Inpatient. CARDIAC ANATOMY LEFT VENTRICLE: The cavity size was normal. Wall thickness was normal. Systolic function was mildly to moderately reduced. The estimated ejection fraction was in the range of 40% to 45%. Wall motion was normal; there were no regional wall motion abnormalities. The transmitral flow pattern was normal. The deceleration time of the early transmitral flow velocity was normal. The pulmonary vein flow pattern was normal. The tissue Doppler parameters were normal. Left ventricular diastolic function parameters were normal. AORTIC VALVE: Trileaflet; mildly thickened, mildly calcified leaflets. Doppler: Transvalvular velocity was within the normal range. There was no stenosis. No regurgitation. AORTA: Aortic root: The aortic root was normal in size. MITRAL VALVE: Structurally normal valve. Doppler: Transvalvular velocity was within the normal range. There was no evidence for stenosis. Trace regurgitation. LEFT ATRIUM: The atrium was normal in size. RIGHT VENTRICLE: The cavity size was normal. Wall thickness was normal. Systolic pressure was within the normal range. PULMONIC VALVE: Doppler: Transvalvular velocity was within the normal range. There was no evidence for stenosis. No regurgitation. TRICUSPID VALVE: Structurally normal valve. Doppler: Transvalvular velocity was within the normal range. No regurgitation. PULMONARY ARTERY: The main pulmonary artery was normal-sized. Systolic pressure was within the normal range. RIGHT ATRIUM: The atrium was normal in size. PERICARDIUM: There was no pericardial effusion. SYSTEMIC VEINS: Inferior vena cava: The vessel was normal in size. BASIC MEASUREMENTS ADULT Normal Left ventricle LV internal dimension, ED, chordal level, *54.4 mm 43-52 PLAX LV internal dimension, ES, chordal level, *45 mm 23-38 PLAX Fractional shortening, chordal level, PLAX *17 % >29 LV posterior wall thickness, ED 11.2 mm IVS/LVPW ratio, ED *1.77 <1.3 Ventricular septum Septal thickness, ED 19.8 mm Aortic valve Leaflet separation 19 mm 15-26 Right ventricle RV internal dimension, ED, PLAX *42.7 mm 19-38 BASIC MEASUREMENTS ADULT Normal Aortic valve Leaflet separation 19 mm 15-26 Aorta Root diameter, ED *41 mm 20-37 Left atrium Anterior-posterior dimension, ES *53 mm 19-40 LA/aortic root ratio 1.29 DOPPLER MEASUREMENTS ADULT Normal Main pulmonary artery Pressure, S *43 mm Hg =30 Tricuspid valve Regurgitant peak velocity 288 cm/s Peak RV-RA gradient, S 33 mm Hg Maximal regurgitant velocity 288 cm/s Systemic veins Estimated CVP 10 mm Hg Right ventricle RV pressure, S *43 mm Hg <30 LEGEND: Mean values are shown as u=mean value. Asterisk (*) mas values outside specified normal range. Prepared and signed by Matteo Dave [id number]
[2017-02-26] VITALS (19 sets, daily range): BP systolic 109–125; BP diastolic 66–77; PULSE 73–92; RESP 12–13; TEMP 97.8–99.2; O2SAT 90–91
[2017-02-26] MEDS: CHLORHEXIDINE GLUCONATE 2 % 1 PACK (2 CLOTHS) TOP SCH ×2 (04:00→23:11)
[2017-02-26] MEDS: RESP: ALBUTEROL 2.5 MG/IPRATROPIUM 0.5 MG NEB (SCH) INH ×4 (04:25→20:30)
[2017-02-26] MEDS: INSULIN NovoLIN REGULAR SUPPLEMENTAL SCALE SQ SCH ×4 (05:00→23:00)
[2017-02-26] MEDS: PROPOFOL 1000 MG/100 ML INJ 100 ML IV SCH ×5 (05:42→20:53)
[2017-02-26] MEDS: methylPREDNISolone SOD SUCC 40 MG/1 ML VIAL IV PUSH SCH ×3 (05:43→20:53)
[2017-02-26] MEDS: HEPARIN SODIUM - SQ 10,000 UNITS/ML VIAL SQ SCH ×2 (05:43→16:41)
[2017-02-26] MEDS: fentaNYL DRIP 250 ML IV SCH ×2 (05:55→14:46)
[2017-02-26 06:12] LABS: AUTOMATED NEUTROPHIL # 9.9 TH/MM3 (1.8-7.7); BASOPHIL % 0.1 % (0.0-2.0); HEMATOCRIT 50.5 % (39.0-51.0); HEMO FLAGS DIFF FINAL; LYMPH % 2.1 % (9.0-44.0); LYMPHOCYTE # 0.2 TH/MM3 (1.0-4.8); MEAN CELL VOLUME 97.2 FL (80.0-100.0); MEAN CORPUSCULAR HEMOGLOBIN 30.1 PG (27.0-34.0); MEAN CORPUSCULAR HGB CONC 30.9 % (32.0-36.0); MONO % 7.3 % (0.0-8.0); NEUT % 90.5 % (16.0-70.0); PLATELET COUNT 161 TH/MM3 (150-450); RED CELL DISTRIBUTION WIDTH 16.1 % (11.6-17.2); WHITE BLOOD COUNT 10.9 TH/MM3 (4.0-11.0)
[2017-02-26 06:35] LABS: BICARBONATE 36.5 MEQ/L (21.0-32.0); POTASSIUM 4.3 MEQ/L (3.5-5.1)
--- NOTE | 2017-02-26 07:02 | MB ---
cc: MOISÉS AKINS DATE OF CONSULTATION 02/25/2017 REASON FOR CONSULTATION Respiratory failure. HISTORY OF PRESENT ILLNESS This is a 66-year-old man with a history of cardiomyopathy and COPD with hypertension and hyperlipidemia with coronary artery disease. He was brought to the emergency room with progressive shortness breath. The patient initially was placed on 100% non-rebreather mask and the ABGs showed severe hypercapnia with hypoxemia. He had to be intubated and placed on ventilator support and over the past two days attempts were made to wean him off the ventilator. The patient also had a higher creatinine upon arrival and was given IV fluids, IV antibiotics and bronchodilators and has been on IV Solu-Medrol as well. The chest x-ray today showed evidence of bilateral pulmonary infiltrates with vascular congestion. The patient is sedated and his urine outputs have improved and he is now on IV Bumex as well. The white count was slightly elevated today to 12.5 but the patient is on an FIO2 of 70% with a PEEP of 10. PAST HISTORY 1. COPD. 2. history of CABG x 3. 3. History of appendectomy. 4. History of AICD pacer placement. 5. He has had left forearm surgery. ALLERGIES None listed. HABITS The patient smoked for over 35 years, up to one-pack per day. Alcohol use in the past, not recently. FAMILY HISTORY Noncontributory. MEDICATION LIST 1. DuoNeb nebs q.i.d. 2. Solu-Medrol 60 q.8. 3. Bumex 1 mg per day. 4. IV Levaquin daily. 5. Omeprazole. 6. Simvastatin. SYSTEMS REVIEW Patient on ventilator support, sedated. PHYSICAL EXAMINATION GENERAL: This moderately obese elderly man is poorly responsive, assisting the ventilator. VITAL SIGNS: Blood pressure 110/70, pulse 80, respirations are 22, temperature 98. HEENT: Head normocephalic. Pupils are reactive. Sclerae are injected. Throat clear. NECK: No bruits or thyroid enlargement. There is mild venous distension while lying flat. CHEST: Equal movements with wheezes scattered bilaterally with diminished breath sounds at the bases with basilar crackles. HEART: The heart sounds are regular, S1 and S2. No murmur. ABDOMEN: Soft, obese, without masses. No organomegaly. Bowel sounds are faint. EXTREMITIES: Edema 1+ with decreased pulses and reflexes not elicited. NEUROLOGIC: He is sedated. SKIN: Cool and dry. IMPRESSION 1. Hypercapnic respiratory failure and hypoxemic respiratory failure. 2. COPD with chronic bronchitis and acute exacerbation. 3. Congestive heart failure. 4. Cardiomyopathy with ischemic heart disease. 5. Hypertension and hyperlipidemia. 6. Possible obstructive sleep apnea. PLAN 1. The patient is being diuresed since his chest x-ray shows evidence of pulmonary edema and we will also give him a dose of Bumex at night with albumin 12.5 grams, nebulized DuoNeb solution continued q.6 hours, Solu-Medrol 40 mg IV q.8 hours. 1. I also added Rocephin 1 gram IV daily. 2. Continue Plavix and aspirin as ordered. 3. A follow-up chest x-ray tomorrow. 4. We will try to wean his FIO2 down over the next 24-48 hours and NG tube with feedings as ordered. 5. If stable in the a.m., he will be weaned down to C-PAP and a gas obtained as well. Thank you, Dr. [place], for this consultation. MD SHANNON Mittal/TELLO /1:46 PM /6:51 AM
[2017-02-26] MEDS: ASPIRIN 325 MG TAB PO SCH (08:04)
[2017-02-26] MEDS: CLOPIDOGREL 75 MG TAB PO SCH (08:04)
[2017-02-26] MEDS: DOCUSATE SODIUM 100 MG/10 ML UDC PO SCH ×2 (08:04→20:52)
[2017-02-26] MEDS: SENNOSIDES SYRUP 8.8 MG/5 ML CUP PO SCH (08:04)
[2017-02-26] MEDS: PANTOPRAZOLE SODIUM 40 MG VIAL IV SCH (08:04)
--- NOTE | 2017-02-26 08:12 | HHI.CCPN ---
Subjective Remarks/Hospital Course The patient is a 66-year-old male with past medical history of COPD, cardiomyopathy, hypertension, gastroesophageal reflux disease, hyperlipidemia and coronary artery disease. The patient presented to [facility] ED with a 2-week history of progressive worsening shortness of breath. On arrival to the ED he was initially placed on a non-rebreather mask and ABG was performed which showed acute hypercapnic respiratory failure with a pH of 7.14, CO2 121, pAO2 141, bicarb 40, sats 93%. His laboratory data significant for hyperkalemia with potassium level 6.0 and acute renal failure with a BUN of 43 and creatinine 2.07 respectively. The chest x-ray showed cardiomegaly and findings of vascular congestion without overt failure. In the ED the patient was intubated with etomidate and rocuronium and placed on full mechanical ventilation. In addition, he is scheduled to receive 10 units IV regular insulin, 1 amp of D50 and calcium gluconate for hyperkalemia. He received cefepime, azithromycin, Solu-Medrol 125 milligrams IV push and bronchodilator treatment. When seen the patient is on Diprivan infusion for sedation and full mechanical ventilation. Per the patient is not on any oxygen at home and he occasionally smokes cigarettes. 02/24 Patient is intubated and sedated with Diprivan and Fentanyl. Switched to PC/ AC with RR 12, IP:24, IT:1.06, PEEP: 8 and FIO2 100%. CXR this morning showed interval development of bilateral perihilar and lower lung zone airspace opacity he was given Lasix 60mg total overnight. 02/25 Patient remains sedated and intubated with Diprivan and Fentanyl. Afebrile.On PC/AC with RR 12, IP:22, IT:1.10, PEEP:10, FIO2 70%. Afebrile. Renal function worse today with Cr: 1.90 from 1.72 UO: 1150ml in 24 hrs 02/26 No acute events overnight. Sedated with Fentanyl and Diprivan and intubated. Afebrile. His O2 requirements is less now on PC/AC with IP:22, IT: 1.1 with PEEP: 10 and FIO2 55%. Renal function improving with Cr: 1.42 today from 1.90. Tolerating tube feeds. Objective Vital Signs Date Time Temp Pulse Resp B/P Pulse Ox O2 Delivery O2 Flow Rate FiO2 02/26/17 06:00 82 02/26/17 04:25 91 55 02/26/17 04:00 97.8 12 125/77 02/23/17 18:00 Ventilator 02/23/17 14:20 15 Intake and Output 02/25/17 02/25/17 02/26/17 08:00 16:00 00:00 Intake Total 1138 ml 1160 ml 1448 ml Output Total 500 ml 1600 ml 1200 ml Balance 638 ml -440 ml 248 ml Result Diagram: 02/26/17 0503 02/26/17 0503 Other Results Laboratory Tests Test 02/26/17 05:03 White Blood Count 10.9 TH/MM3 Red Blood Count 5.20 MIL/MM3 Hemoglobin 15.6 GM/DL Hematocrit 50.5 % Mean Corpuscular Volume 97.2 FL Mean Corpuscular Hemoglobin 30.1 PG Mean Corpuscular Hemoglobin 30.9 % Concent Red Cell Distribution Width 16.1 % Platelet Count 161 TH/MM3 Mean Platelet Volume 8.2 FL Neutrophils (%) (Auto) 90.5 % Lymphocytes (%) (Auto) 2.1 % Monocytes (%) (Auto) 7.3 % Eosinophils (%) (Auto) 0.0 % Basophils (%) (Auto) 0.1 % Neutrophils # (Auto) 9.9 TH/MM3 Lymphocytes # (Auto) 0.2 TH/MM3 Monocytes # (Auto) 0.8 TH/MM3 Eosinophils # (Auto) 0.0 TH/MM3 Basophils # (Auto) 0.0 TH/MM3 CBC Comment DIFF FINAL Differential Comment Sodium Level 144 MEQ/L Potassium Level 4.3 MEQ/L Chloride Level 100 MEQ/L Carbon Dioxide Level 36.5 MEQ/L Anion Gap 8 MEQ/L Blood Urea Nitrogen 52 MG/DL Creatinine 1.42 MG/DL Estimat Glomerular Filtration 50 ML/MIN Rate Random Glucose 115 MG/DL Calcium Level 9.1 MG/DL Imaging Last Impressions Chest X-Ray 02/25/17 0000 Signed Impressions: Service Date/Time: Saturday, February 25, 2017 08:49 - CONCLUSION: Cardiomegaly with persistent congestive failure. Artur Bob MD FACR Abdomen X-Ray 02/24/17 0000 Signed Impressions: Service Date/Time: Friday, February 24, 2017 10:43 - CONCLUSION: 1. Nasogastric tube just across the GE junction. 2. Minimal nonspecific bowel gas dilatation. Artur Bob MD FACR Objective Remarks GENERAL: Patient is 66 yo intubated and sedated. SKIN: Warm and dry. HEAD: Normocephalic. EYES: No scleral icterus. No injection or drainage. NECK: Supple, trachea midline. No JVD or lymphadenopathy. CARDIOVASCULAR: Regular rate and rhythm without murmurs, gallops, or rubs. RESPIRATORY: Breath sounds equal bilaterally. Coarse BS GASTROINTESTINAL: Abdomen soft, non-tender, nondistended. MUSCULOSKELETAL: No cyanosis, or edema. Neuro: Sedated and intubated A/P Assessment and Plan 1. Acute hypercapnic and hypoxemic respiratory failure. 2. COPD exacerbation. 3. Acute renal failure. 4. Hyperkalemia. 5. Obstructive sleep apnea and morbid obesity. 6. Cardiomyopathy. 7. History of coronary artery disease. 8. Gastroesophageal reflux disease. 9. Hypertension. 10. Hyperlipidemia. 11 Pulm edema Plan: Neuro: On Diprivan and Fentanyl infusion for sedation. Daily sedation vacation when appropriate. CV: Monitor HR and BP keep MAP>65mmHg On aspirin 325 milligrams p.o. daily and Plavix 75 mg p.o. daily. Echo showed EF 40-45%, nl LV diastolic function Pulm: On PC/AC RR 12, IP:22, IT:1.1 PEEP: 10, FIO2: 55%, decrease FIO2 as kristie Continue with vent support and maintain sats above 92%. Check ABG Bronchodilators, Solu-Medrol 60 mg IV q. 8. Give Diamox 250mg IV x1 : Monitor renal function Is and Os and avoid nephrotoxins. Renal function improving with Cr: 1.42 today from 1.90, UO 3450 ml in 24hrs Diurese with Bumex 1mg BID GI: On Protonix 40 milligrams IV daily for GI prophylaxis. On TF- Glucerna 1.5 with goal rate 45ml/hr Senna, Colace for bowel regimen ID: continue with empiric abx(Levaquin) and monitor for signs of infections( fever and WBC) Follow up on sputum cx-[id number] Heme: Monitor CBC. Endo: SSI with Accu-Chek q. 6-hour for glycemic control. GI prophylaxis with Protonix 40 mg daily and DVT prophylaxis with SCDs and heparin subcu. CCT 30 mins Georgia Ocampo MD Feb 26, 2017 08:12
[2017-02-26 08:30] LABS: BLOOD GAS BASE EXCESS 10.4 mmol/L (-2-2); BLOOD GAS CARBOXYHEMOGLOBIN 1.3 % (0-4); BLOOD GAS HCO3 36 mmol/L (22-26); BLOOD GAS METHEMOGLOBIN 1.3 % (0-2); BLOOD GAS O2 HGB SATURATION 86 % (90-100); BLOOD GAS OXYGEN CONTENT 19.6 Vol % (12.0-20.0); BLOOD GAS PCO2 61 mmHg (38-42); BLOOD GAS PO2 61 mmHg (61-120); BLOOD GAS TOTAL HGB 16.3 G/DL (12.0-16.0); TEMP CORR TO 98.6
[2017-02-26 08:31] LABS: CRITICAL VALUE YES; DRAW SITE LT RADIAL; FIO2 55 %; NUMBER OF ARTERIAL PUNCTURES 1; OXYGEN DEVICE VENTILATOR; STAT NO; ULNAR PULSE PRESENT; VENT SETTINGS PC/AC
[2017-02-26] MEDS: BUMETANIDE INJ 1 MG/4 ML VIAL IV PUSH SCH ×2 (09:25→16:41)
[2017-02-26] MEDS: cefTRIAXone INJ 1,000 MG in SODIUM CHLORIDE 0.9% INJ 100 ML IV SCH (13:11)
[2017-02-26] MEDS: LEVOFLOXACIN/DEXTROSE 250 MG/50 ML IV SCH (16:42)
--- NOTE | 2017-02-26 19:37 | HHI.PR ---
Subjective Remarks sedated and on the vent at 50 % FIO2. Good output with bumex. Tolerates feeds Objective Vital Signs Date Time Temp Pulse Resp B/P Pulse Ox O2 Delivery O2 Flow Rate FiO2 02/26/17 18:00 75 02/26/17 16:43 90 55 02/26/17 16:00 73 02/26/17 16:00 55 02/26/17 16:00 99.2 73 12 119/72 90 02/26/17 14:00 75 02/26/17 12:00 55 02/26/17 12:00 76 02/26/17 12:00 98.5 76 12 109/67 91 02/26/17 11:10 91 55 02/26/17 10:00 77 02/26/17 08:13 90 55 02/26/17 08:00 77 02/26/17 08:00 55 02/26/17 08:00 98.4 77 13 125/76 90 02/26/17 06:00 82 02/26/17 04:25 91 55 02/26/17 04:00 80 02/26/17 04:00 80 02/26/17 04:00 97.8 80 12 125/77 91 02/26/17 02:00 86 02/26/17 00:15 90 65 02/26/17 00:00 80 02/26/17 00:00 97.9 92 12 111/70 90 02/26/17 00:00 92 02/25/17 22:00 101 02/25/17 20:00 80 02/25/17 20:00 82 02/25/17 20:00 97.5 82 12 115/64 90 02/25/17 19:43 90 70 I/O 02/25/17 02/25/17 02/25/17 02/26/17 02/26/17 02/26/17 07:00 15:00 23:00 07:00 15:00 23:00 Intake Total 1138 ml 1160 ml 1448 ml 921 ml 884 ml Output Total 500 ml 1600 ml 1200 ml 650 ml 1475 ml Balance 638 ml -440 ml 248 ml 271 ml -591 ml Intake Oral 0 ml IV Total 680 ml 710 ml 502 ml 394 ml 443 ml Tube Feeding 358 ml 350 ml 826 ml 407 ml 391 ml Tube Irrigant 50 ml Other 100 ml 100 ml 120 ml 120 ml Output Urine Total 500 ml 1600 ml 1200 ml 650 ml 1475 ml # Bowel Movements 0 0 0 0 Result Diagram: 02/26/17 0503 02/26/17 0503 Objective Remarks PHYSICAL EXAMINATION GENERAL: This moderately obese elderly man is poorly responsive, assisting the ventilator. HEENT: Head normocephalic. Pupils are reactive. Sclerae are injected. Throat clear. NECK: No bruits or thyroid enlargement. There is mild venous distension while lying flat. CHEST: Equal movements with wheezes scattered bilaterally with diminished breath sounds at the bases with basilar crackles. HEART: The heart sounds are regular, S1 and S2. No murmur. ABDOMEN: Soft, obese, without masses. No organomegaly. Bowel sounds are faint. EXTREMITIES: Edema 1+ with decreased pulses and reflexes not elicited. NEUROLOGIC: He is sedated. SKIN: Cool and dry. Assessment and Plan Assessment and Plan IMPRESSION 1. Hypercapnic respiratory failure and hypoxemic respiratory failure. 2. COPD with chronic bronchitis and acute exacerbation. 3. Congestive heart failure. 4. Cardiomyopathy with ischemic heart disease. 5. Hypertension and hyperlipidemia. 6. Possible obstructive sleep apnea. Plan : 1. Wean O2 to keep sat >92. 2. Cont Bumex 1 mg bid. 3. Keep sedated 4. Continue solumedrol 40 mg IV q8h. 5. CXR ,CBC, BMP in am 6. Continue antibiotics Bri Stout MD Feb 26, 2017 19:37
[2017-02-26] MEDS: ATORVASTATIN 40 MG TAB PO SCH (20:52)
[2017-02-27] VITALS (19 sets, daily range): BP systolic 126–165; BP diastolic 67–83; PULSE 71–83; RESP 12; TEMP 98–99.1; O2SAT 89–95
[2017-02-27] MEDS: fentaNYL DRIP 250 ML IV SCH ×3 (00:49→21:56)
[2017-02-27] MEDS: PROPOFOL 1000 MG/100 ML INJ 100 ML IV SCH ×6 (01:19→22:45)
[2017-02-27] MEDS: RESP: ALBUTEROL 2.5 MG/IPRATROPIUM 0.5 MG NEB (SCH) INH ×3 (04:08→15:35)
[2017-02-27 04:59] LABS: AUTOMATED NEUTROPHIL # 7.9 TH/MM3 (1.8-7.7); BASOPHIL % 0.1 % (0.0-2.0); EOSINOPHIL % 0.1 % (0.0-4.0); HEMATOCRIT 49.8 % (39.0-51.0); HEMO FLAGS DIFF FINAL; LYMPH % 2.4 % (9.0-44.0); LYMPHOCYTE # 0.2 TH/MM3 (1.0-4.8); MEAN CELL VOLUME 96.3 FL (80.0-100.0); MEAN CORPUSCULAR HEMOGLOBIN 31.5 PG (27.0-34.0); MEAN CORPUSCULAR HGB CONC 32.7 % (32.0-36.0); MONO % 5.8 % (0.0-8.0); NEUT % 91.6 % (16.0-70.0); PLATELET COUNT 147 TH/MM3 (150-450); RED BLOOD COUNT 5.17 MIL/MM3 (4.50-5.90); RED CELL DISTRIBUTION WIDTH 16.7 % (11.6-17.2); WHITE BLOOD COUNT 8.6 TH/MM3 (4.0-11.0)
[2017-02-27] MEDS: INSULIN NovoLIN REGULAR SUPPLEMENTAL SCALE SQ SCH ×4 (05:00→22:01)
[2017-02-27 05:23] LABS: BICARBONATE 35.7 MEQ/L (21.0-32.0); MAGNESIUM 3.2 MG/DL (1.5-2.5); POTASSIUM 4.5 MEQ/L (3.5-5.1)
[2017-02-27] MEDS: HEPARIN SODIUM - SQ 10,000 UNITS/ML VIAL SQ SCH ×2 (06:01→17:00)
[2017-02-27] MEDS: methylPREDNISolone SOD SUCC 40 MG/1 ML VIAL IV PUSH SCH ×3 (06:01→21:51)
--- NOTE | 2017-02-27 06:20 | RADRPT ---
EXAM DATE/TIME: 02/27/2017 05:14 [facility] COMPARISON: CHEST SINGLE AP, February 25, 2017, 8:49. INDICATIONS : Shortness of breath. MEDICAL HISTORY : Hypertension. Chronic obstructive pulmonary disease. Coronary artery disease. Cardiomyopathy. Sleep apnea. SURGICAL HISTORY : Pacemaker. Coronary artery stent. CABG. ENCOUNTER: Subsequent ACUITY: 4 - 6 days PAIN SCORE: Non-responsive. LOCATION: Bilateral chest FINDINGS: A single portable frontal view of the chest shows no significant change. Cardiomegaly with bibasilar pulmonary infiltrates and tiny effusions. Endotracheal tube tip 4 cm proximal to the jax. Nasogast sathya tube coiled in the fundus of the stomach. Left-sided pacing device. Median sternotomy wires. CONCLUSION: Unchanged cardiomegaly with pulmonary vascular engorgement, bilateral pleural effusions, and bibasila r infiltrates. The pattern is most suggestive of pulmonary edema. Garrick Hinton Jr., MD on February 27, 2017 at 6:18 Board Certified Radiologist. This report was verified electronically.
--- NOTE | 2017-02-27 07:15 | HHI.CCPN ---
Subjective Remarks/Hospital Course The patient is a 66-year-old male with past medical history of COPD, cardiomyopathy, hypertension, gastroesophageal reflux disease, hyperlipidemia and coronary artery disease. The patient presented to [facility] ED with a 2-week history of progressive worsening shortness of breath. On arrival to the ED he was initially placed on a non-rebreather mask and ABG was performed which showed acute hypercapnic respiratory failure with a pH of 7.14, CO2 121, pAO2 141, bicarb 40, sats 93%. His laboratory data significant for hyperkalemia with potassium level 6.0 and acute renal failure with a BUN of 43 and creatinine 2.07 respectively. The chest x-ray showed cardiomegaly and findings of vascular congestion without overt failure. In the ED the patient was intubated with etomidate and rocuronium and placed on full mechanical ventilation. In addition, he is scheduled to receive 10 units IV regular insulin, 1 amp of D50 and calcium gluconate for hyperkalemia. He received cefepime, azithromycin, Solu-Medrol 125 milligrams IV push and bronchodilator treatment. When seen the patient is on Diprivan infusion for sedation and full mechanical ventilation. Per the patient is not on any oxygen at home and he occasionally smokes cigarettes. 02/24 Patient is intubated and sedated with Diprivan and Fentanyl. Switched to PC/ AC with RR 12, IP:24, IT:1.06, PEEP: 8 and FIO2 100%. CXR this morning showed interval development of bilateral perihilar and lower lung zone airspace opacity he was given Lasix 60mg total overnight. 02/25 Patient remains sedated and intubated with Diprivan and Fentanyl. Afebrile.On PC/AC with RR 12, IP:22, IT:1.10, PEEP:10, FIO2 70%. Afebrile. Renal function worse today with Cr: 1.90 from 1.72 UO: 1150ml in 24 hrs 02/26 No acute events overnight. Sedated with Fentanyl and Diprivan and intubated. Afebrile. His O2 requirements is less now on PC/AC with IP:22, IT: 1.1 with PEEP: 10 and FIO2 55%. Renal function improving with Cr: 1.42 today from 1.90. Tolerating tube feeds. 02/27 Patient remains sedated with Diprivan and Fentanyl infusion and intubated. Afebrile. Objective Vital Signs Date Time Temp Pulse Resp B/P Pulse Ox O2 Delivery O2 Flow Rate FiO2 02/27/17 06:00 74 02/27/17 04:18 90 60 02/27/17 04:00 98.9 12 127/68 02/23/17 18:00 Ventilator 02/23/17 14:20 15 Intake and Output 02/26/17 02/26/17 02/27/17 08:00 16:00 00:00 Intake Total 921 ml 884 ml 1042 ml Output Total 650 ml 1475 ml 1300 ml Balance 271 ml -591 ml -258 ml Result Diagram: 02/27/17 0430 02/27/17 0430 Other Results Laboratory Tests Test 02/26/17 02/27/17 08:22 04:30 Blood Gas Puncture Site LT RADIAL Blood Gas Patient Temperature 98.6 Blood Gas HCO3 36 mmol/L Blood Gas Base Excess 10.4 mmol/L Blood Gas Oxygen Saturation 86 % Arterial Blood pH 7.38 Arterial Blood Partial 61 mmHg Pressure CO2 Arterial Blood Partial 61 mmHg Pressure O2 Arterial Blood Oxygen Content 19.6 Vol % Arterial Blood 1.3 % Carboxyhemoglobin Arterial Blood Methemoglobin 1.3 % Blood Gas Hemoglobin 16.3 G/DL Oxygen Delivery Device VENTILATOR Blood Gas Ventilator Setting PC/AC Blood Gas Inspired Oxygen 55 % White Blood Count 8.6 TH/MM3 Red Blood Count 5.17 MIL/MM3 Hemoglobin 16.3 GM/DL Hematocrit 49.8 % Mean Corpuscular Volume 96.3 FL Mean Corpuscular Hemoglobin 31.5 PG Mean Corpuscular Hemoglobin 32.7 % Concent Red Cell Distribution Width 16.7 % Platelet Count 147 TH/MM3 Mean Platelet Volume 8.0 FL Neutrophils (%) (Auto) 91.6 % Lymphocytes (%) (Auto) 2.4 % Monocytes (%) (Auto) 5.8 % Eosinophils (%) (Auto) 0.1 % Basophils (%) (Auto) 0.1 % Neutrophils # (Auto) 7.9 TH/MM3 Lymphocytes # (Auto) 0.2 TH/MM3 Monocytes # (Auto) 0.5 TH/MM3 Eosinophils # (Auto) 0.0 TH/MM3 Basophils # (Auto) 0.0 TH/MM3 CBC Comment DIFF FINAL Differential Comment Sodium Level 145 MEQ/L Potassium Level 4.5 MEQ/L Chloride Level 104 MEQ/L Carbon Dioxide Level 35.7 MEQ/L Anion Gap 5 MEQ/L Blood Urea Nitrogen 50 MG/DL Creatinine 1.24 MG/DL Estimat Glomerular Filtration 58 ML/MIN Rate Random Glucose 120 MG/DL Calcium Level 9.0 MG/DL Phosphorus Level 5.3 MG/DL Magnesium Level 3.2 MG/DL Imaging Last Impressions Chest X-Ray 02/27/17 0600 Signed Impressions: Service Date/Time: Monday, February 27, 2017 05:14 - CONCLUSION: Unchanged cardiomegaly with pulmonary vascular engorgement, bilateral pleural effusions, and bibasilar infiltrates. The pattern is most suggestive of pulmonary edema. Garrick Hinton Jr., MD Abdomen X-Ray 02/24/17 0000 Signed Impressions: Service Date/Time: Friday, February 24, 2017 10:43 - CONCLUSION: 1. Nasogastric tube just across the GE junction. 2. Minimal nonspecific bowel gas dilatation. Artur Bob MD FACR Objective Remarks GENERAL: Patient is 66 yo intubated and sedated. SKIN: Warm and dry. HEAD: Normocephalic. EYES: No scleral icterus. No injection or drainage. NECK: Supple, trachea midline. No JVD or lymphadenopathy. CARDIOVASCULAR: Regular rate and rhythm without murmurs, gallops, or rubs. RESPIRATORY: Breath sounds equal bilaterally. Coarse BS GASTROINTESTINAL: Abdomen soft, non-tender, nondistended. MUSCULOSKELETAL: No cyanosis, or edema. Neuro: Sedated and intubated A/P Assessment and Plan 1. Acute hypercapnic and hypoxemic respiratory failure. 2. COPD exacerbation. 3. Acute renal failure. 4. Hyperkalemia. 5. Obstructive sleep apnea and morbid obesity. 6. Cardiomyopathy. 7. History of coronary artery disease. 8. Gastroesophageal reflux disease. 9. Hypertension. 10. Hyperlipidemia. 11 Pulm edema Plan: Neuro: On Diprivan and Fentanyl infusion for sedation. Daily sedation vacation when appropriate. CV: Monitor HR and BP keep MAP>65mmHg On aspirin 325 milligrams p.o. daily and Plavix 75 mg p.o. daily. Echo showed EF 40-45%, nl LV diastolic function Pulm: On PC/AC RR 12, IP:22, IT:1.1 PEEP: 10, FIO2: 60%, decrease FIO2 as kristie Continue with vent support and maintain sats above 92%. Check ABG Bronchodilators, Solu-Medrol 40 mg IV q. 8. Pulm-Dr. Stout : Monitor renal function Is and Os and avoid nephrotoxins. Renal function improving with Cr: 1.24 today from 1.42 , UO 3225 ml in 24hrs On Bumex 1mg BID GI: On Protonix 40 milligrams IV daily for GI prophylaxis. On TF- Glucerna 1.5 @45ml/hr Senna, Colace for bowel regimen, add Lactulose 15mg BID 02/24 KUB abdomen: Minimal non-specific bowel gas dilatation ID: continue with empiric abx(Levaquin, Rocephin) and monitor for signs of infections( fever and WBC) Follow up on sputum cx-NGTD Heme: Monitor CBC. Endo: SSI with Accu-Chek q. 6-hour for glycemic control. GI prophylaxis with Protonix 40 mg daily and DVT prophylaxis with SCDs and heparin subcu. Check Doppler US LE CCT 30 mins Georgia Ocampo MD Feb 27, 2017 07:15
--- NOTE | 2017-02-27 09:09 | RADRPT ---
EXAM DATE/TIME: 02/27/2017 08:31 [facility] COMPARISON: No previous studies available for comparison. INDICATIONS : Swelling in bilateral lower extremities. MEDICAL HISTORY : Hypercholesterolemia. Hypertension. Arthritis. Syncope. COPD. Sleep apnea. Ulcer. Dyspnea. SURGICAL HISTORY : CABGPacemaker. Appendectomy.ORIF left forearm. ENCOUNTER: Initial ACUITY: 1 day PAIN SCORE: Non-responsive LOCATION: Bilateral legs. TECHNIQUE: Venous ultrasound of the left and right leg was performed from the inguinal ligament to the proximal calf. Real-time, color Doppler and spectral tracing, compression and augmentation techniques were us ed. FINDINGS: RIGHT LEG: There is normal compressibility of the deep venous system from the inguinal region to the proximal ca lf. No echogenic clot is seen in the lumen of the common femoral, femoral, popliteal, and posterior tibial veins. There is a normal response of the venous system to proximal and distal augmentation an d respiration. LEFT LEG: There is normal compressibility of the deep venous system from the inguinal region to the proximal ca lf. No echogenic clot is seen in the lumen of the common femoral, femoral, popliteal, and posterior tibial veins. There is a normal response of the venous system to proximal and distal augmentation an d respiration. CONCLUSION: Normal examination. Nick Farrell MD on February 27, 2017 at 9:07 Board Certified Radiologist. This report was verified electronically.
--- NOTE | 2017-02-27 09:41 | PD.PROCEDR ---
Central Line Procedure REASON FOR PROCEDURE Central venous access PROCEDURE PERFORMED Central line placement: Right IJ CVP CONSENT Informed consent for procedure was obtained . The risks and benefits of the procedure were discussed to include but limited to bleeding, clot formation, infection, and even . ANESTHESIA Local injection of 1% Lidocaine DESCRIPTION OF THE PROCEDURE The patient was placed in supine, mild Trendelenburg position. The area was exposed and cleansed with ChloraPrep, times two. Large sterile drape was used to cover the patient, with the site exposed, under sterile conditions including cap, face mask, sterile gown, and sterile gloves. On single attempt, the introducer needle was inserted with negative pressure in syringe and venous flash was obtained. The guide wire was then advanced without any restriction and the needle was removed. The dilator was used without any complications. Using Seldinger technique the catheter was advanced over the guide wire to a depth of 20 centimeters. The guide wire was removed. All ports were aspirated with dark venous blood return and flushed easily with sterile saline. All ports were capped. Antibiotic disc was placed around central line at puncture site. The central line was secured to the skin with two interrupted 2.0 silk sutures. The area was bandaged with sterile see-through central line bandage. RADIOLOGICAL DATA Ultrasound guidance was used to locate right IJ vein. CXR ordered to verify line placement COMPLICATIONS: No apparent complications ESTIMATED BLOOD LOSS: Less than 1 cc. Georgia Ocampo MD Feb 27, 2017 09:41
[2017-02-27] MEDS: LACTULOSE SYRUP 20 GM/30 ML CUP PO SCH ×2 (09:53→21:50)
[2017-02-27] MEDS: SENNOSIDES SYRUP 8.8 MG/5 ML CUP PO SCH (09:53)
[2017-02-27] MEDS: DOCUSATE SODIUM 100 MG/10 ML UDC PO SCH ×2 (09:53→21:51)
[2017-02-27] MEDS: ASPIRIN 325 MG TAB PO SCH (09:54)
[2017-02-27] MEDS: CLOPIDOGREL 75 MG TAB PO SCH (09:54)
[2017-02-27] MEDS: PANTOPRAZOLE SODIUM 40 MG VIAL IV SCH (09:54)
[2017-02-27] MEDS: BUMETANIDE INJ 1 MG/4 ML VIAL IV PUSH SCH ×2 (09:54→17:00)
--- NOTE | 2017-02-27 10:00 | RADRPT ---
EXAM DATE/TIME: 02/27/2017 09:32 [facility] COMPARISON: CHEST SINGLE AP, February 27, 2017, 5:14. INDICATIONS : Central line placement. MEDICAL HISTORY : Hypercholesterolemia. Hypertension. Arthritis. Syncope. COPD. Sleep apnea. Ulcer. Dyspnea. SURGICAL HISTORY : CABG. Pacemaker. Appendectomy.ORIF left forearm. ENCOUNTER: Subsequent ACUITY: 3 days PAIN SCORE: Non-responsive. LOCATION: Bilateral chest FINDINGS: A single view of the chest demonstrates the lungs to be symmetrically aerated with persistent bibasil ar effusions, right greater than left concomitant atelectatic changes. Heart size remains prominent. Findings of prior CABG with median sternotomy wires and multiple surgical clips projecting over the m ediastinum and heart border. Endotracheal and nasogastric tubes are unchanged in position. Interval p lacement of a right IJ central venous catheter with the tip projecting over the central venous system . Left subclavian bipolar pacer remains radiographically intact. Osseous structures are intact with r eduction of the left acromiohumeral interval characteristic of a chronic rotator cuff injury. CONCLUSION: 1. Interval placement of a right IJ central venous catheter with the tip projecting over the central venous system. No pneumothorax. 2. Cardiomegaly with bibasilar effusions and concomitant atelectatic changes. Spectrum of findings ar e characteristic of pulmonary edema/CHF. No significant change. 3. Endotracheal and nasogastric tubes as well as left subclavian bipolar pacer are radiographically s table. Jeet Araiza MD on February 27, 2017 at 9:55 Board Certified Radiologist. This report was verified electronically.
--- NOTE | 2017-02-27 12:16 | HHI.PR ---
Subjective Remarks sedated and on the vent at 50 % FIO2.good output with bumex Tolerates feeds. Objective Vital Signs Date Time Temp Pulse Resp B/P Pulse Ox O2 Delivery O2 Flow Rate FiO2 02/27/17 10:23 91 60 02/27/17 10:00 79 02/27/17 08:07 92 60 02/27/17 08:00 98.6 76 12 140/73 91 02/27/17 08:00 60 02/27/17 08:00 76 02/27/17 06:00 74 02/27/17 04:18 90 60 02/27/17 04:00 60 02/27/17 04:00 78 02/27/17 04:00 98.9 78 12 127/68 90 02/27/17 02:00 80 02/27/17 01:20 90 55 02/27/17 00:00 83 02/27/17 00:00 99.1 83 12 127/67 89 02/27/17 00:00 55 02/26/17 22:09 90 55 02/26/17 22:00 86 02/26/17 20:30 91 55 02/26/17 20:00 99.0 74 12 110/66 91 02/26/17 20:00 55 02/26/17 20:00 74 02/26/17 18:00 75 02/26/17 16:43 90 55 02/26/17 16:00 73 02/26/17 16:00 55 02/26/17 16:00 99.2 73 12 119/72 90 02/26/17 14:00 75 I/O 02/26/17 02/26/17 02/26/17 02/27/17 02/27/17 02/27/17 07:00 15:00 23:00 07:00 15:00 23:00 Intake Total 921 ml 884 ml 1479 ml Output Total 650 ml 1475 ml 1750 ml Balance 271 ml -591 ml -271 ml IV Total 394 ml 443 ml 762 ml Tube Feeding 407 ml 391 ml 657 ml Tube Irrigant 50 ml Other 120 ml 60 ml Output Urine Total 650 ml 1475 ml 1750 ml # Bowel Movements 0 0 Result Diagram: 02/27/17 0430 02/27/17 0430 Objective Remarks PHYSICAL EXAMINATION GENERAL: This moderately obese elderly man is poorly responsive, assisting the ventilator. HEENT: Head normocephalic. Pupils are reactive. Sclerae are injected. Throat clear. NECK: No bruits or thyroid enlargement. There is mild venous distension while lying flat. CHEST: Equal movements with diminished breath sounds at the bases with basilar crackles. HEART: The heart sounds are regular, S1 and S2. No murmur. ABDOMEN: Soft, obese, without masses. No organomegaly. Bowel sounds are faint. EXTREMITIES: Edema 1+ with decreased pulses and reflexes not elicited. NEUROLOGIC: He is sedated. SKIN: Cool and dry. Assessment and Plan Assessment and Plan IMPRESSION 1. Hypercapnic respiratory failure and hypoxemic respiratory failure. 2. COPD with chronic bronchitis and acute exacerbation. 3. Congestive heart failure. 4. Cardiomyopathy with ischemic heart disease. 5. Hypertension and hyperlipidemia. 6. Possible obstructive sleep apnea. Plan : 1. Wean O2 to keep sat >92. 2. Cont Bumex 1 mg bid. 3. Reduce sedation 4. Continue solumedrol 40 mg IV q8h. 5. CXR ,CBC, BMP in am 6. Continue antibiotics. 7. CPAP trial in am if stable Bri Stout MD Feb 27, 2017 12:16
[2017-02-27] MEDS: cefTRIAXone INJ 1,000 MG in SODIUM CHLORIDE 0.9% INJ 100 ML IV SCH (13:19)
[2017-02-27] MEDS: LEVOFLOXACIN/DEXTROSE 250 MG/50 ML IV SCH (17:00)
[2017-02-27] MEDS: ATORVASTATIN 40 MG TAB PO SCH (21:50)
[2017-02-27] MEDS: CHLORHEXIDINE GLUCONATE 2 % 1 PACK (2 CLOTHS) TOP SCH (21:52)
[2017-02-28] VITALS (17 sets, daily range): BP systolic 131–162; BP diastolic 73–90; PULSE 72–84; RESP 12; TEMP 98.3–99.1; O2SAT 90–94
[2017-02-28] MEDS: PROPOFOL 1000 MG/100 ML INJ 100 ML IV SCH ×7 (02:21→21:51)
[2017-02-28 03:25] LABS: AUTOMATED NEUTROPHIL # 6.6 TH/MM3 (1.8-7.7); BASOPHIL % 0.1 % (0.0-2.0); HEMATOCRIT 49.9 % (39.0-51.0); HEMO FLAGS DIFF FINAL; LYMPH % 2.3 % (9.0-44.0); LYMPHOCYTE # 0.2 TH/MM3 (1.0-4.8); MEAN CELL VOLUME 95.4 FL (80.0-100.0); MEAN CORPUSCULAR HEMOGLOBIN 30.6 PG (27.0-34.0); MONO % 7.7 % (0.0-8.0); NEUT % 89.9 % (16.0-70.0); PLATELET COUNT 143 TH/MM3 (150-450); RED BLOOD COUNT 5.23 MIL/MM3 (4.50-5.90); RED CELL DISTRIBUTION WIDTH 16.4 % (11.6-17.2); WHITE BLOOD COUNT 7.4 TH/MM3 (4.0-11.0)
[2017-02-28 03:55] LABS: BICARBONATE 38.2 MEQ/L (21.0-32.0); POTASSIUM 4.1 MEQ/L (3.5-5.1)
--- NOTE | 2017-02-28 04:35 | RADRPT ---
EXAM DATE/TIME: 02/28/2017 03:29 [place] COMPARISON: CHEST SINGLE AP, February 27, 2017, 9:32. INDICATIONS : Shortness of breath. MEDICAL HISTORY : Hypercholesterolemia. Hypertension. Arthritis. Syncope. COPD. Sleep apnea.Ulcer SURGICAL HISTORY : CABG. Pacemaker. Appendectomy. ORIF left forearm. ENCOUNTER: Subsequent ACUITY: 4 - 6 days PAIN SCORE: Non-responsive. LOCATION: Bilateral chest FINDINGS: Single portable frontal view of the chest shows no significant change. Cardiomegaly with pulmonary va scular engorgement, bilateral pleural effusions, and bibasilar infiltrates are unchanged. Tip of endo tracheal tube 4 cm cephalad to the jax. Right-sided central line, left-sided pacing device, nasoga stric tube, and median sternotomy wires are noted. CONCLUSION: No change in the pulmonary edema. Garrick Hinton Jr., MD on February 28, 2017 at 4:32 Board Certified Radiologist. This report was verified electronically.
[2017-02-28] MEDS: INSULIN NovoLIN REGULAR SUPPLEMENTAL SCALE SQ SCH ×4 (05:00→23:00)
[2017-02-28] MEDS: methylPREDNISolone SOD SUCC 40 MG/1 ML VIAL IV PUSH SCH ×2 (05:37→12:13)
[2017-02-28] MEDS: HEPARIN SODIUM - SQ 10,000 UNITS/ML VIAL SQ SCH ×2 (05:38→18:44)
[2017-02-28] MEDS: BUMETANIDE INJ 1 MG/4 ML VIAL IV PUSH SCH ×2 (09:16→18:44)
[2017-02-28] MEDS: ASPIRIN 325 MG TAB PO SCH (09:16)
[2017-02-28] MEDS: CLOPIDOGREL 75 MG TAB PO SCH (09:16)
[2017-02-28] MEDS: SENNOSIDES SYRUP 8.8 MG/5 ML CUP PO SCH (09:16)
[2017-02-28] MEDS: fentaNYL DRIP 250 ML IV SCH ×2 (09:16→21:22)
[2017-02-28] MEDS: LACTULOSE SYRUP 20 GM/30 ML CUP PO SCH ×2 (09:16→20:54)
[2017-02-28] MEDS: DOCUSATE SODIUM 100 MG/10 ML UDC PO SCH ×2 (09:16→20:54)
[2017-02-28] MEDS: PANTOPRAZOLE SODIUM 40 MG VIAL IV SCH (09:16)
[2017-02-28] MEDS: cefTRIAXone INJ 1,000 MG in SODIUM CHLORIDE 0.9% INJ 100 ML IV SCH (12:13)
--- NOTE | 2017-02-28 16:40 | HHI.CCPN ---
Subjective Remarks/Hospital Course The patient is a 66-year-old male with past medical history of COPD, cardiomyopathy, hypertension, gastroesophageal reflux disease, hyperlipidemia and coronary artery disease. The patient presented to [facility] ED with a 2-week history of progressive worsening shortness of breath. On arrival to the ED he was initially placed on a non-rebreather mask and ABG was performed which showed acute hypercapnic respiratory failure with a pH of 7.14, CO2 121, pAO2 141, bicarb 40, sats 93%. His laboratory data significant for hyperkalemia with potassium level 6.0 and acute renal failure with a BUN of 43 and creatinine 2.07 respectively. The chest x-ray showed cardiomegaly and findings of vascular congestion without overt failure. In the ED the patient was intubated with etomidate and rocuronium and placed on full mechanical ventilation. In addition, he is scheduled to receive 10 units IV regular insulin, 1 amp of D50 and calcium gluconate for hyperkalemia. He received cefepime, azithromycin, Solu-Medrol 125 milligrams IV push and bronchodilator treatment. When seen the patient is on Diprivan infusion for sedation and full mechanical ventilation. Per the patient is not on any oxygen at home and he occasionally smokes cigarettes. 02/24 Patient is intubated and sedated with Diprivan and Fentanyl. Switched to PC/ AC with RR 12, IP:24, IT:1.06, PEEP: 8 and FIO2 100%. CXR this morning showed interval development of bilateral perihilar and lower lung zone airspace opacity he was given Lasix 60mg total overnight. 02/25 Patient remains sedated and intubated with Diprivan and Fentanyl. Afebrile.On PC/AC with RR 12, IP:22, IT:1.10, PEEP:10, FIO2 70%. Afebrile. Renal function worse today with Cr: 1.90 from 1.72 UO: 1150ml in 24 hrs 02/26 No acute events overnight. Sedated with Fentanyl and Diprivan and intubated. Afebrile. His O2 requirements is less now on PC/AC with IP:22, IT: 1.1 with PEEP: 10 and FIO2 55%. Renal function improving with Cr: 1.42 today from 1.90. Tolerating tube feeds. 02/27 Patient remains sedated with Diprivan and Fentanyl infusion and intubated. Afebrile. 02/28: Remains sedated, orally intubated on mechanical ventilation. Being diuresed with Bumex. Tolerating tube feeds. Objective Vital Signs Date Time Temp Pulse Resp B/P Pulse Ox O2 Delivery O2 Flow Rate FiO2 02/28/17 15:18 92 60 02/28/17 12:00 98.4 83 12 131/73 Intake and Output 02/27/17 02/27/17 02/28/17 08:00 16:00 00:00 Intake Total 437 ml 685 ml 653 ml Output Total 450 ml 1700 ml 1750 ml Balance -13 ml -1015 ml -1097 ml Result Diagram: 02/28/17 0245 02/28/17 0245 Imaging Last Impressions Chest X-Ray 02/27/17 0600 Signed Impressions: Service Date/Time: Monday, February 27, 2017 05:14 - CONCLUSION: Unchanged cardiomegaly with pulmonary vascular engorgement, bilateral pleural effusions, and bibasilar infiltrates. The pattern is most suggestive of pulmonary edema. Garrick Hinton Jr., MD Abdomen X-Ray 02/24/17 0000 Signed Impressions: Service Date/Time: Friday, February 24, 2017 10:43 - CONCLUSION: 1. Nasogastric tube just across the GE junction. 2. Minimal nonspecific bowel gas dilatation. Artur Bob MD FACR Objective Remarks GENERAL: Patient is 66 yo intubated and sedated. SKIN: Warm and dry. HEAD: Normocephalic. EYES: No scleral icterus. No injection or drainage. NECK: Supple, trachea midline. No JVD or lymphadenopathy. CARDIOVASCULAR: Regular rate and rhythm without murmurs, gallops, or rubs. RESPIRATORY: On mechanical ventilation, orally intubated, Breath sounds equal bilaterally. Coarse BS GASTROINTESTINAL: Abdomen soft, non-tender, nondistended. MUSCULOSKELETAL: No cyanosis, or edema. Neuro: Sedated, orally intubated, arousable A/P Assessment and Plan 1. Acute hypercapnic and hypoxemic respiratory failure. 2. COPD exacerbation. 3. Acute renal failure. 4. Hyperkalemia. 5. Obstructive sleep apnea and morbid obesity. 6. Cardiomyopathy. 7. History of coronary artery disease. 8. Gastroesophageal reflux disease. 9. Hypertension. 10. Hyperlipidemia. 11 Pulm edema Plan: Neuro: On Diprivan and Fentanyl infusion for sedation. Daily sedation vacation. CV: Monitor HR and BP keep MAP>65mmHg On aspirin 325 milligrams p.o. daily and Plavix 75 mg p.o. daily. Being diuresed with Bumex IV Echo showed EF 40-45%, nl LV diastolic function Pulm: On PC/AC RR 12, IP:22, IT:1.1 PEEP: 10, FIO2: 60%, decrease FIO2 as kristie Continue with vent support and maintain sats above 92%. Check ABG Bronchodilators, Solu-Medrol 40 mg IV q. 8. Pulm-Dr. Stout : Monitor renal function Is and Os and avoid nephrotoxins. Renal function improving with Cr: 1.24 today from 1.42 , UO 3225 ml in 24hrs On Bumex 1mg BID GI: On Protonix 40 milligrams IV daily for GI prophylaxis. On TF- Glucerna 1.5 @45ml/hr Senna, Colace for bowel regimen, add Lactulose 15mg BID 02/24 KUB abdomen: Minimal non-specific bowel gas dilatation ID: continue with empiric abx(Levaquin, Rocephin) and monitor for signs of infections( fever and WBC) Follow up on sputum cx-NGTD Heme: Monitor CBC. Endo: SSI with Accu-Chek q. 6-hour for glycemic control. GI prophylaxis with Protonix 40 mg daily and DVT prophylaxis with SCDs and heparin subcu. Check Doppler US LE CCT 30 mins excluding procedures Ari Mackey MD Feb 28, 2017 16:40
[2017-02-28] MEDS: LEVOFLOXACIN/DEXTROSE 250 MG/50 ML IV SCH (18:44)
--- NOTE | 2017-02-28 19:01 | HHI.PR ---
Subjective Remarks sedated and on the vent at 60 % FIO2. good output with IV bumex. Tolerates feeds. Chest X jess not changed Objective Vital Signs Date Time Temp Pulse Resp B/P Pulse Ox O2 Delivery O2 Flow Rate FiO2 02/28/17 18:00 77 02/28/17 16:00 99.1 72 12 150/90 91 02/28/17 16:00 72 02/28/17 16:00 60 02/28/17 15:18 92 60 02/28/17 14:00 80 02/28/17 12:00 84 02/28/17 12:00 60 02/28/17 12:00 98.4 83 12 131/73 92 02/28/17 10:00 74 02/28/17 08:00 73 02/28/17 08:00 60 02/28/17 08:00 98.3 73 12 162/88 91 02/28/17 07:40 92 60 02/28/17 06:00 73 02/28/17 04:00 73 02/28/17 04:00 60 02/28/17 04:00 98.7 73 12 141/81 92 02/28/17 03:10 93 60 02/28/17 02:00 73 02/28/17 00:00 73 02/28/17 00:00 60 02/28/17 00:00 98.8 73 12 149/81 91 02/27/17 22:00 73 02/27/17 20:00 79 02/27/17 20:00 98.8 79 12 126/67 93 02/27/17 20:00 60 02/27/17 19:55 93 60 I/O 02/27/17 02/27/17 02/27/17 02/28/17 02/28/17 02/28/17 07:00 15:00 23:00 07:00 15:00 23:00 Intake Total 1479 ml 685 ml 653 ml 830 ml 1300 ml Output Total 1750 ml 1700 ml 1750 ml 700 ml 1700 ml Balance -271 ml -1015 ml -1097 ml 130 ml -400 ml IV Total 762 ml 550 ml 265 ml 418 ml 600 ml Tube Feeding 657 ml 35 ml 268 ml 412 ml 500 ml Other 60 ml 100 ml 120 ml 200 ml Output Urine Total 1750 ml 1700 ml 1750 ml 700 ml 1700 ml # Bowel Movements 0 0 0 0 0 Result Diagram: 02/28/1724402/28/17244 Objective Remarks PHYSICAL EXAMINATION GENERAL: This moderately obese elderly man is poorly responsive, assisting the ventilator. HEENT: Head normocephalic. Pupils are reactive. Throat clear. NECK: No bruits or thyroid enlargement. There is mild venous distension while lying flat. CHEST: Equal movements with diminished breath sounds at the bases with basilar crackles. HEART: The heart sounds are regular, S1 and S2. No murmur. ABDOMEN: Soft, obese, without masses. No organomegaly. Bowel sounds are faint. EXTREMITIES: Edema 1+ with decreased pulses and reflexes not elicited. NEUROLOGIC: He is sedated. SKIN: Cool and dry. Assessment and Plan Assessment and Plan IMPRESSION 1. Hypercapnic respiratory failure and hypoxemic respiratory failure. 2. COPD with chronic bronchitis and acute exacerbation. 3. Congestive heart failure. 4. Cardiomyopathy with ischemic heart disease. 5. Hypertension and hyperlipidemia. 6. Possible obstructive sleep apnea. Plan : 1. Wean O2 to keep sat >92. 2. Cont Bumex 1 mg bid. 3. Reduce sedation 4. Continue solumedrol 40 mg IV BID. 5. CXR ,CBC, BMP in am 6. Continue antibiotics. 7. Tube feeds at 50 CC Bri Stout MD Feb 28, 2017 19:01
[2017-02-28] MEDS: RESP: ALBUTEROL 2.5 MG/IPRATROPIUM 0.5 MG NEB (PRN) NEB (19:57)
[2017-02-28] MEDS: ATORVASTATIN 40 MG TAB PO SCH (20:54)
[2017-03-01] VITALS (16 sets, daily range): BP systolic 99–122; BP diastolic 64–73; PULSE 71–100; RESP 12–16; TEMP 98.6–99.1; O2SAT 91–98
[2017-03-01] MEDS: PROPOFOL 1000 MG/100 ML INJ 100 ML IV SCH ×7 (00:40→22:48)
[2017-03-01] MEDS: CHLORHEXIDINE GLUCONATE 2 % 1 PACK (2 CLOTHS) TOP SCH (03:59)
[2017-03-01] MEDS: HEPARIN SODIUM - SQ 10,000 UNITS/ML VIAL SQ SCH ×2 (04:00→17:13)
[2017-03-01] MEDS: INSULIN NovoLIN REGULAR SUPPLEMENTAL SCALE SQ SCH ×4 (04:00→22:48)
[2017-03-01] MEDS: fentaNYL DRIP 250 ML IV SCH ×2 (07:26→17:13)
[2017-03-01] MEDS: DOCUSATE SODIUM 100 MG/10 ML UDC PO SCH ×2 (08:51→20:53)
[2017-03-01] MEDS: SENNOSIDES SYRUP 8.8 MG/5 ML CUP PO SCH (08:51)
[2017-03-01] MEDS: ASPIRIN 325 MG TAB PO SCH (08:52)
[2017-03-01] MEDS: BUMETANIDE INJ 1 MG/4 ML VIAL IV PUSH SCH ×2 (08:52→17:09)
[2017-03-01] MEDS: CLOPIDOGREL 75 MG TAB PO SCH (08:52)
[2017-03-01] MEDS: PANTOPRAZOLE SODIUM 40 MG VIAL IV SCH (08:52)
[2017-03-01] MEDS: LACTULOSE SYRUP 20 GM/30 ML CUP PO SCH ×2 (08:52→20:53)
[2017-03-01] MEDS: methylPREDNISolone SOD SUCC 40 MG/1 ML VIAL IV PUSH SCH ×2 (08:53→20:53)
--- NOTE | 2017-03-01 13:32 | HHI.CCPN ---
Subjective Remarks/Hospital Course The patient is a 66-year-old male with past medical history of COPD, cardiomyopathy, hypertension, gastroesophageal reflux disease, hyperlipidemia and coronary artery disease. The patient presented to [facility] ED with a 2-week history of progressive worsening shortness of breath. On arrival to the ED he was initially placed on a non-rebreather mask and ABG was performed which showed acute hypercapnic respiratory failure with a pH of 7.14, CO2 121, pAO2 141, bicarb 40, sats 93%. His laboratory data significant for hyperkalemia with potassium level 6.0 and acute renal failure with a BUN of 43 and creatinine 2.07 respectively. The chest x-ray showed cardiomegaly and findings of vascular congestion without overt failure. In the ED the patient was intubated with etomidate and rocuronium and placed on full mechanical ventilation. In addition, he is scheduled to receive 10 units IV regular insulin, 1 amp of D50 and calcium gluconate for hyperkalemia. He received cefepime, azithromycin, Solu-Medrol 125 milligrams IV push and bronchodilator treatment. When seen the patient is on Diprivan infusion for sedation and full mechanical ventilation. Per the patient is not on any oxygen at home and he occasionally smokes cigarettes. 02/24 Patient is intubated and sedated with Diprivan and Fentanyl. Switched to PC/ AC with RR 12, IP:24, IT:1.06, PEEP: 8 and FIO2 100%. CXR this morning showed interval development of bilateral perihilar and lower lung zone airspace opacity he was given Lasix 60mg total overnight. 02/25 Patient remains sedated and intubated with Diprivan and Fentanyl. Afebrile.On PC/AC with RR 12, IP:22, IT:1.10, PEEP:10, FIO2 70%. Afebrile. Renal function worse today with Cr: 1.90 from 1.72 UO: 1150ml in 24 hrs 02/26 No acute events overnight. Sedated with Fentanyl and Diprivan and intubated. Afebrile. His O2 requirements is less now on PC/AC with IP:22, IT: 1.1 with PEEP: 10 and FIO2 55%. Renal function improving with Cr: 1.42 today from 1.90. Tolerating tube feeds. 02/27 Patient remains sedated with Diprivan and Fentanyl infusion and intubated. Afebrile. 02/28: Remains sedated, orally intubated on mechanical ventilation. Being diuresed with Bumex. Tolerating tube feeds. 03/01: Remains sedated, orally intubated on mechanical ventilation. Being diabetes. Remains on PEEP of 10 and FiO2 60% Objective Vital Signs Date Time Temp Pulse Resp B/P Pulse Ox O2 Delivery O2 Flow Rate FiO2 03/01/17 11:22 92 65 03/01/17 08:00 86 03/01/17 04:00 98.6 12 115/69 Intake and Output 02/28/17 02/28/17 03/01/17 08:00 16:00 00:00 Intake Total 830 ml 1300 ml 685 ml Output Total 700 ml 1700 ml 1350 ml Balance 130 ml -400 ml -665 ml Result Diagram: 02/28/17 0245 02/28/17 0245 Imaging Last Impressions Chest X-Ray 02/27/17 0600 Signed Impressions: Service Date/Time: Monday, February 27, 2017 05:14 - CONCLUSION: Unchanged cardiomegaly with pulmonary vascular engorgement, bilateral pleural effusions, and bibasilar infiltrates. The pattern is most suggestive of pulmonary edema. Garrick Hinton Jr., MD Abdomen X-Ray 02/24/17 0000 Signed Impressions: Service Date/Time: Friday, February 24, 2017 10:43 - CONCLUSION: 1. Nasogastric tube just across the GE junction. 2. Minimal nonspecific bowel gas dilatation. Artur Bob MD FACR Objective Remarks GENERAL: Patient is 66 yo intubated and sedated. SKIN: Warm and dry. HEAD: Normocephalic. EYES: No scleral icterus. No injection or drainage. NECK: Supple, trachea midline. No JVD or lymphadenopathy. CARDIOVASCULAR: Regular rate and rhythm without murmurs, gallops, or rubs. RESPIRATORY: On mechanical ventilation, orally intubated, Breath sounds equal bilaterally. Coarse BS GASTROINTESTINAL: Abdomen soft, non-tender, nondistended. MUSCULOSKELETAL: No edema. Neuro: Sedated, orally intubated, arousable A/P Assessment and Plan 1. Acute hypercapnic and hypoxemic respiratory failure. 2. COPD exacerbation. 3. Acute renal failure. 4. Hyperkalemia. 5. Obstructive sleep apnea and morbid obesity. 6. Cardiomyopathy. 7. History of coronary artery disease. 8. Gastroesophageal reflux disease. 9. Hypertension. 10. Hyperlipidemia. 11 Pulm edema Plan: Neuro: On Diprivan and Fentanyl infusion for sedation. Daily sedation vacation. CV: Monitor HR and BP keep MAP>65mmHg On aspirin 325 milligrams p.o. daily and Plavix 75 mg p.o. daily. Being diuresed with Bumex IV Echo showed EF 40-45%, nl LV diastolic function Pulm: On PC/AC RR 12, IP:22, IT:1.1 PEEP: 10, FIO2: 60%, decrease FIO2 as kristie Continue with vent support and maintain sats above 92%. Check ABG Bronchodilators, Solu-Medrol 40 mg IV q. 8. Pulm-Dr. Stout : Monitor renal function Is and Os and avoid nephrotoxins. Follow BUN/creatinine. Monitor and replete electrolytes. On Bumex 1mg BID GI: On Protonix 40 milligrams IV daily for GI prophylaxis. On TF- Glucerna 1.5 @45ml/hr Senna, Colace for bowel regimen, add Lactulose 15mg BID 02/24 KUB abdomen: Minimal non-specific bowel gas dilatation ID: continue with empiric abx(Levaquin, Rocephin) and monitor for signs of infections( fever and WBC) Follow up on sputum cx-NGTD Heme: Monitor CBC. Endo: SSI with Accu-Chek q. 6-hour for glycemic control. GI prophylaxis with Protonix 40 mg daily and DVT prophylaxis with SCDs and heparin subcu. Check Doppler US LE CCT 30 mins excluding procedures Ari Mackey MD Mar 01, 2017 13:32
[2017-03-01] MEDS: cefTRIAXone INJ 1,000 MG in SODIUM CHLORIDE 0.9% INJ 100 ML IV SCH (14:29)
[2017-03-01] MEDS: LEVOFLOXACIN/DEXTROSE 250 MG/50 ML IV SCH (17:09)
--- NOTE | 2017-03-01 18:13 | HHI.PR ---
Subjective Remarks sedated and on the vent at 65 % FIO2. good output still. Tolerates feeds. Chest X ray not changed. Objective Vital Signs Date Time Temp Pulse Resp B/P Pulse Ox O2 Delivery O2 Flow Rate FiO2 03/01/17 18:00 95 03/01/17 16:00 89 03/01/17 16:00 99.1 89 12 109/66 93 03/01/17 16:00 65 03/01/17 15:04 92 65 03/01/17 12:00 65 03/01/17 12:00 100 03/01/17 12:00 99.1 100 12 110/69 98 03/01/17 12:00 100 03/01/17 11:22 92 65 03/01/17 08:28 94 65 03/01/17 08:00 98.6 81 12 105/64 94 03/01/17 08:00 65 03/01/17 08:00 86 03/01/17 06:05 95 65 03/01/17 06:00 77 03/01/17 04:00 98.6 75 12 115/69 95 03/01/17 04:00 75 03/01/17 04:00 65 03/01/17 02:00 71 03/01/17 01:44 94 65 03/01/17 00:00 99.1 74 12 122/73 92 03/01/17 00:00 74 03/01/17 00:00 60 02/28/17 22:42 90 65 02/28/17 22:00 77 02/28/17 20:00 98.6 77 12 144/79 93 02/28/17 20:00 60 02/28/17 20:00 74 02/28/17 19:55 94 60 I/O 02/28/17 02/28/17 02/28/17 03/01/17 03/01/17 03/01/17 07:00 15:00 23:00 07:00 15:00 23:00 Intake Total 830 ml 1300 ml 685 ml 913 ml 1081 ml Output Total 700 ml 1700 ml 1350 ml 600 ml 1250 ml Balance 130 ml -400 ml -665 ml 313 ml -169 ml IV Total 418 ml 600 ml 300 ml 390 ml 416 ml Tube Feeding 412 ml 500 ml 285 ml 423 ml 425 ml Other 200 ml 100 ml 100 ml 240 ml Output Urine Total 700 ml 1700 ml 1350 ml 600 ml 1250 ml # Bowel Movements 0 0 1 Result Diagram: 02/28/175 02/28/17 0245 Objective Remarks PHYSICAL EXAMINATION GENERAL: This moderately obese elderly man is poorly responsive, assisting the ventilator. HEENT: Head normocephalic. Pupils are reactive. Throat clear. NECK: No bruits or thyroid enlargement. There is mild venous distension . CHEST: Equal movements with diminished breath sounds at the bases with basilar crackles. HEART: The heart sounds are regular, S1 and S2. No murmur. ABDOMEN: Soft, obese, without masses. No organomegaly. Bowel sounds are faint. EXTREMITIES: Edema 1+ with decreased pulses and reflexes not elicited. NEUROLOGIC: He is sedated. SKIN: Cool and dry. Assessment and Plan Assessment and Plan IMPRESSION 1. Hypercapnic respiratory failure and hypoxemic respiratory failure. 2. COPD with chronic bronchitis and acute exacerbation. 3. Congestive heart failure. 4. Cardiomyopathy with ischemic heart disease. 5. Hypertension and hyperlipidemia. 6. Possible obstructive sleep apnea. Plan : 1. Wean O2 to keep sat >92. 2. Cont Bumex IV ,1 mg bid. 3. Reduce sedation 4. Continue solumedrol 40 mg IV BID. 5. CBC, BMP in am 6. Continue antibiotics. 7. Tube feeds at 50 CC Bri Stout MD Mar 01, 2017 18:13
[2017-03-01] MEDS: ATORVASTATIN 40 MG TAB PO SCH (20:53)
[2017-03-02] VITALS (19 sets, daily range): BP systolic 119–147; BP diastolic 71–88; PULSE 74–96; RESP 12–16; TEMP 98.6–99.1; O2SAT 89–94
[2017-03-02] MEDS: PROPOFOL 1000 MG/100 ML INJ 100 ML IV SCH ×7 (03:25→23:08)
[2017-03-02] MEDS: CHLORHEXIDINE GLUCONATE 2 % 1 PACK (2 CLOTHS) TOP SCH (04:00)
[2017-03-02] MEDS: HEPARIN SODIUM - SQ 10,000 UNITS/ML VIAL SQ SCH ×2 (04:21→17:09)
[2017-03-02] MEDS: INSULIN NovoLIN REGULAR SUPPLEMENTAL SCALE SQ SCH ×4 (04:21→23:00)
[2017-03-02] MEDS: fentaNYL DRIP 250 ML IV SCH ×2 (07:09→18:51)
[2017-03-02] MEDS: DOCUSATE SODIUM 100 MG/10 ML UDC PO SCH ×2 (08:17→20:20)
[2017-03-02] MEDS: LACTULOSE SYRUP 20 GM/30 ML CUP PO SCH ×2 (08:17→20:21)
[2017-03-02] MEDS: CLOPIDOGREL 75 MG TAB PO SCH (08:18)
[2017-03-02] MEDS: ASPIRIN 325 MG TAB PO SCH (08:18)
[2017-03-02] MEDS: SENNOSIDES SYRUP 8.8 MG/5 ML CUP PO SCH (08:18)
[2017-03-02] MEDS: methylPREDNISolone SOD SUCC 40 MG/1 ML VIAL IV PUSH SCH ×2 (08:20→20:20)
[2017-03-02] MEDS: PANTOPRAZOLE SODIUM 40 MG VIAL IV SCH (08:21)
[2017-03-02] MEDS: BUMETANIDE INJ 1 MG/4 ML VIAL IV PUSH SCH ×2 (08:21→17:09)
--- NOTE | 2017-03-02 08:34 | HHI.CCPN ---
Subjective Remarks/Hospital Course The patient is a 66-year-old male with past medical history of COPD, cardiomyopathy, hypertension, gastroesophageal reflux disease, hyperlipidemia and coronary artery disease. The patient presented to [facility] ED with a 2-week history of progressive worsening shortness of breath. On arrival to the ED he was initially placed on a non-rebreather mask and ABG was performed which showed acute hypercapnic respiratory failure with a pH of 7.14, CO2 121, pAO2 141, bicarb 40, sats 93%. His laboratory data significant for hyperkalemia with potassium level 6.0 and acute renal failure with a BUN of 43 and creatinine 2.07 respectively. The chest x-ray showed cardiomegaly and findings of vascular congestion without overt failure. In the ED the patient was intubated with etomidate and rocuronium and placed on full mechanical ventilation. In addition, he is scheduled to receive 10 units IV regular insulin, 1 amp of D50 and calcium gluconate for hyperkalemia. He received cefepime, azithromycin, Solu-Medrol 125 milligrams IV push and bronchodilator treatment. When seen the patient is on Diprivan infusion for sedation and full mechanical ventilation. Per the patient is not on any oxygen at home and he occasionally smokes cigarettes. 02/24 Patient is intubated and sedated with Diprivan and Fentanyl. Switched to PC/ AC with RR 12, IP:24, IT:1.06, PEEP: 8 and FIO2 100%. CXR this morning showed interval development of bilateral perihilar and lower lung zone airspace opacity he was given Lasix 60mg total overnight. 02/25 Patient remains sedated and intubated with Diprivan and Fentanyl. Afebrile.On PC/AC with RR 12, IP:22, IT:1.10, PEEP:10, FIO2 70%. Afebrile. Renal function worse today with Cr: 1.90 from 1.72 UO: 1150ml in 24 hrs 02/26 No acute events overnight. Sedated with Fentanyl and Diprivan and intubated. Afebrile. His O2 requirements is less now on PC/AC with IP:22, IT: 1.1 with PEEP: 10 and FIO2 55%. Renal function improving with Cr: 1.42 today from 1.90. Tolerating tube feeds. 02/27 Patient remains sedated with Diprivan and Fentanyl infusion and intubated. Afebrile. 02/28: Remains sedated, orally intubated on mechanical ventilation. Being diuresed with Bumex. Tolerating tube feeds. 03/01: Remains sedated, orally intubated on mechanical ventilation. Being diabetes. Remains on PEEP of 10 and FiO2 60% 03/02 Patient remains sedated with Diprivan and Fentanyl and intubated. On PC/AC with PEEP: 10 and FIO2 80% overnight and sats 93-94%. Afebrile. Objective Vital Signs Date Time Temp Pulse Resp B/P Pulse Ox O2 Delivery O2 Flow Rate FiO2 03/02/17 06:00 96 03/02/17 04:16 94 90 03/02/17 04:00 98.9 16 138/71 Intake and Output 03/01/17 03/01/17 03/02/17 08:00 16:00 00:00 Intake Total 913 ml 1081 ml 1000 ml Output Total 600 ml 1250 ml 1250 ml Balance 313 ml -169 ml -250 ml Result Diagram: 02/28/17 0245 02/28/17 0245 Imaging Last Impressions Chest X-Ray 02/28/17 0600 Signed Impressions: Service Date/Time: Tuesday, February 28, 2017 03:29 - CONCLUSION: No change in the pulmonary edema. Garrick Hinton Jr., MD Lower Extremity Ultrasound 02/27/17 0000 Signed Impressions: Service Date/Time: Monday, February 27, 2017 08:31 - CONCLUSION: Normal examination. Nick Farrell MD Abdomen X-Ray 02/24/17 0000 Signed Impressions: Service Date/Time: Friday, February 24, 2017 10:43 - CONCLUSION: 1. Nasogastric tube just across the GE junction. 2. Minimal nonspecific bowel gas dilatation. Artur Bob MD FACR Objective Remarks GENERAL: Patient is 66 yo intubated and sedated. SKIN: Warm and dry. HEAD: Normocephalic. EYES: No scleral icterus. No injection or drainage. NECK: Supple, trachea midline. No JVD or lymphadenopathy. CARDIOVASCULAR: Regular rate and rhythm without murmurs, gallops, or rubs. RESPIRATORY: On mechanical ventilation, orally intubated, Breath sounds equal bilaterally. Coarse BS GASTROINTESTINAL: Abdomen soft, non-tender, nondistended. MUSCULOSKELETAL: No edema. Neuro: Sedated, orally intubated, arousable A/P Assessment and Plan 1. Acute hypercapnic and hypoxemic respiratory failure. 2. COPD exacerbation. 3. Acute renal failure. 4. Hyperkalemia. 5. Obstructive sleep apnea and morbid obesity. 6. Cardiomyopathy. 7. History of coronary artery disease. 8. Gastroesophageal reflux disease. 9. Hypertension. 10. Hyperlipidemia. 11 Pulm edema Plan: Neuro: On Diprivan and Fentanyl infusion for sedation. Daily sedation vacation when appropriate. CV: Monitor HR and BP keep MAP>65mmHg On aspirin 325 milligrams p.o. daily and Plavix 75 mg p.o. daily. Echo showed EF 40-45%, nl LV diastolic function Pulm: On PC/AC RR 12, IP:22, IT:1.1 PEEP: 10, FIO2: 80%, decrease FIO2 as kristie Continue with vent support and maintain sats above 92%. Check CXR Bronchodilators, Solu-Medrol 40 mg IV BID. Pulm-Dr. Stout CTA chest showed no PE, small pleural effusions : Monitor renal function Is and Os and avoid nephrotoxins. Electrolytes replacement per protocol.. On Bumex 1mg BID, place on Free water 250ml Q8, monitor sodium level. GI: On Protonix 40 milligrams IV daily for GI prophylaxis. On TF- Glucerna 1.5 @45ml/hr Senna, Colace for bowel regimen, Lactulose 15mg BID 02/24 KUB abdomen: Minimal non-specific bowel gas dilatation ID: continue with empiric abx(Levaquin, Rocephin) and monitor for signs of infections( fever and WBC) Follow up on sputum cx-NGTD Heme: Monitor CBC. Endo: SSI with Accu-Chek q. 6-hour for glycemic control. GI prophylaxis with Protonix 40 mg daily and DVT prophylaxis with SCDs and heparin subcu. Doppler US LE no DVT Check labs today CCT 30 mins excluding procedures Georgia Ocampo MD Mar 02, 2017 08:34
[2017-03-02 08:36] LABS: AUTOMATED NEUTROPHIL # 7.6 TH/MM3 (1.8-7.7); BASOPHIL % 0.1 % (0.0-2.0); EOSINOPHIL % 0.1 % (0.0-4.0); HEMATOCRIT 49.7 % (39.0-51.0); HEMO FLAGS DIFF FINAL; LYMPH % 4.3 % (9.0-44.0); LYMPHOCYTE # 0.4 TH/MM3 (1.0-4.8); MEAN CELL VOLUME 95.5 FL (80.0-100.0); MEAN CORPUSCULAR HEMOGLOBIN 30.9 PG (27.0-34.0); MEAN CORPUSCULAR HGB CONC 32.3 % (32.0-36.0); MONO % 12.9 % (0.0-8.0); NEUT % 82.6 % (16.0-70.0); PLATELET COUNT 131 TH/MM3 (150-450); RED CELL DISTRIBUTION WIDTH 16.5 % (11.6-17.2); WHITE BLOOD COUNT 9.1 TH/MM3 (4.0-11.0)
[2017-03-02 08:55] LABS: BICARBONATE 40.9 MEQ/L (21.0-32.0); MAGNESIUM 2.8 MG/DL (1.5-2.5)
--- NOTE | 2017-03-02 11:19 | RADRPT ---
EXAM DATE/TIME: 03/02/2017 10:40 [place] COMPARISON: CHEST SINGLE AP, February 28, 2017, 3:29. INDICATIONS : VDRF. MEDICAL HISTORY : None. SURGICAL HISTORY : None. ENCOUNTER: Subsequent ACUITY: 4 - 6 days PAIN SCORE: Non-responsive. LOCATION: Bilateral chest FINDINGS: The heart is enlarged. The patient is post median sternotomy. The ET tube, NG tube and central line are in acceptable position. There are bibasilar effusions and diffuse interstitial prominence most consistent with congestive fabián lure. CONCLUSION: 1. Support equipment in satisfactory position. 2. Cardiomegaly, bibasilar effusions and interstitial prominence consistent with congestive failure. Changes are stable compared to previous Riley Bob MD on March 02, 2017 at 11:17 Board Certified Radiologist. This report was verified electronically.
--- NOTE | 2017-03-02 12:15 | HHI.PR ---
Subjective Remarks sedated and on the vent at 70 % FIO2, and PEEP 10. Tolerates feeds. Chest X ray not changed. Objective Vital Signs Date Time Temp Pulse Resp B/P Pulse Ox O2 Delivery O2 Flow Rate FiO2 03/02/17 12:08 90 70 03/02/17 08:38 91 75 03/02/17 06:00 96 03/02/17 04:16 94 90 03/02/17 04:00 90 03/02/17 04:00 98.9 90 16 138/71 93 03/02/17 04:00 90 03/02/17 02:00 83 03/02/17 00:09 90 75 03/02/17 00:00 75 03/02/17 00:00 98.8 87 16 129/83 90 03/02/17 00:00 87 03/01/17 22:00 90 03/01/17 20:00 99.1 88 16 99/66 91 03/01/17 20:00 70 03/01/17 20:00 88 03/01/17 19:58 91 75 03/01/17 18:00 95 03/01/17 16:00 89 03/01/17 16:00 99.1 89 12 109/66 93 03/01/17 16:00 65 03/01/17 15:04 92 65 I/O 03/01/17 03/01/17 03/01/17 03/02/17 03/02/17 03/02/17 07:00 15:00 23:00 07:00 15:00 23:00 Intake Total 913 ml 1081 ml 1000 ml 790 ml Output Total 600 ml 1250 ml 1250 ml 500 ml Balance 313 ml -169 ml -250 ml 290 ml IV Total 390 ml 416 ml 420 ml 320 ml Tube Feeding 423 ml 425 ml 480 ml 370 ml Other 100 ml 240 ml 100 ml 100 ml Output Urine Total 600 ml 1250 ml 1250 ml 500 ml # Bowel Movements 1 Result Diagram: 03/02/17 0730 03/02/17 07 Objective Remarks PHYSICAL EXAMINATION GENERAL: This moderately obese elderly man is responsive, assisting the ventilator. HEENT: Head normocephalic. Pupils are reactive. Throat clear. NECK: No bruits or thyroid enlargement. CHEST: Equal movements with diminished breath sounds at the bases with basilar crackles. HEART: The heart sounds are regular, S1 and S2. No murmur. ABDOMEN: Soft, obese, without masses. No organomegaly. Bowel sounds are faint. EXTREMITIES: Edema 2+ with decreased pulses and reflexes not elicited. NEUROLOGIC: Awake and responds. SKIN: Cool and dry. Assessment and Plan Assessment and Plan IMPRESSION 1. Hypercapnic respiratory failure and hypoxemic respiratory failure. 2. COPD with chronic bronchitis and acute exacerbation. 3. Congestive heart failure. 4. Cardiomyopathy with ischemic heart disease. 5. Hypertension and hyperlipidemia. 6. Possible obstructive sleep apnea. Plan : 1. Wean O2 to keep sat >92. 2. Cont Bumex IV ,1 mg bid. 3. Reduce sedation 4. solumedrol 40 mg IV BID. 5. CBC, BMP in am 6. Continue antibiotics. 7. Get CTA chest to R/O PE. Bri Stout MD Mar 02, 2017 12:15
--- NOTE | 2017-03-02 13:32 | PD.CARD.PN ---
Subjective Subjective Remarks called my office to notify me that the patient had been admitted. She requested that I get involved since I have a longstanding relationship He is intubated and sedated Objective Medications Active Medications Water (Free Water) 250 ml Q8HR G-TUBE; Start 03/02/17 at 14:00 Vital Signs / I&O Vital Signs Date Time Temp Pulse Resp B/P Pulse Ox O2 Delivery O2 Flow Rate FiO2 03/02/17 12:08 90 70 03/02/17 08:38 91 75 03/02/17 06:00 96 03/02/17 04:16 94 90 03/02/17 04:00 90 03/02/17 04:00 98.9 90 16 138/71 93 03/02/17 04:00 90 03/02/17 02:00 83 03/02/17 00:09 90 75 03/02/17 00:00 75 03/02/17 00:00 98.8 87 16 129/83 90 03/02/17 00:00 87 03/01/17 22:00 90 03/01/17 20:00 99.1 88 16 99/66 91 03/01/17 20:00 70 03/01/17 20:00 88 03/01/17 19:58 91 75 03/01/17 18:00 95 03/01/17 16:00 89 03/01/17 16:00 99.1 89 12 109/66 93 03/01/17 16:00 65 03/01/17 15:04 92 65 I/O 03/01/17 03/01/17 03/01/17 03/02/17 03/02/17 03/02/17 07:00 15:00 23:00 07:00 15:00 23:00 Intake Total 913 ml 1081 ml 1000 ml 790 ml Output Total 600 ml 1250 ml 1250 ml 500 ml Balance 313 ml -169 ml -250 ml 290 ml IV Total 390 ml 416 ml 420 ml 320 ml Tube Feeding 423 ml 425 ml 480 ml 370 ml Other 100 ml 240 ml 100 ml 100 ml Output Urine Total 600 ml 1250 ml 1250 ml 500 ml # Bowel Movements 1 Physical Exam CARDIOVASCULAR: Regular rate and rhythm without murmurs, gallops, or rubs. RESPIRATORY: Breath sounds equal bilaterally. No accessory muscle use. GASTROINTESTINAL: Abdomen soft, non-tender, nondistended. MUSCULOSKELETAL: No cyanosis, or edema. Laboratory Laboratory Tests Test 03/02/17 07:30 White Blood Count 9.1 TH/MM3 Red Blood Count 5.20 MIL/MM3 Hemoglobin 16.1 GM/DL Hematocrit 49.7 % Mean Corpuscular Volume 95.5 FL Mean Corpuscular Hemoglobin 30.9 PG Mean Corpuscular Hemoglobin 32.3 % Concent Red Cell Distribution Width 16.5 % Platelet Count 131 TH/MM3 Mean Platelet Volume 8.8 FL Neutrophils (%) (Auto) 82.6 % Lymphocytes (%) (Auto) 4.3 % Monocytes (%) (Auto) 12.9 % Eosinophils (%) (Auto) 0.1 % Basophils (%) (Auto) 0.1 % Neutrophils # (Auto) 7.6 TH/MM3 Lymphocytes # (Auto) 0.4 TH/MM3 Monocytes # (Auto) 1.2 TH/MM3 Eosinophils # (Auto) 0.0 TH/MM3 Basophils # (Auto) 0.0 TH/MM3 CBC Comment DIFF FINAL Differential Comment Sodium Level 147 MEQ/L Potassium Level 4.0 MEQ/L Chloride Level 102 MEQ/L Carbon Dioxide Level 40.9 MEQ/L Anion Gap 4 MEQ/L Blood Urea Nitrogen 42 MG/DL Creatinine 0.89 MG/DL Estimat Glomerular Filtration 85 ML/MIN Rate Random Glucose 109 MG/DL Calcium Level 9.1 MG/DL Phosphorus Level 3.5 MG/DL Magnesium Level 2.8 MG/DL B-Type Natriuretic Peptide 534 PG/ML Imaging Last Impressions Chest X-Ray 03/02/17 0000 Signed Impressions: Service Date/Time: Thursday, March 02, 2017 10:40 - CONCLUSION: 1. Support equipment in satisfactory position. 2. Cardiomegaly, bibasilar effusions and interstitial prominence consistent with congestive failure. Changes are stable compared to previous Riley Bob MD Lower Extremity Ultrasound 02/27/17 0000 Signed Impressions: Service Date/Time: Monday, February 27, 2017 08:31 - CONCLUSION: Normal examination. Nick Farrell MD Abdomen X-Ray 02/24/17 0000 Signed Impressions: Service Date/Time: Friday, February 24, 2017 10:43 - CONCLUSION: 1. Nasogastric tube just across the GE junction. 2. Minimal nonspecific bowel gas dilatation. Artur Bob MD FACR Assessment and Plan Assessment and Plan respiratory failure - multifactorial. Intubated FiO2 65%. being treated for COPD exacerbation. CAD s/p CABG 1999 MANOJ-RCA atretic, ROBERTS-LAD patent, distal RCA BMS, mid LAD [employer] , co-dominant LCx with mild luminal irregularities. Last cath 2011. Cardiomyopathy - outpatient EF 25% chronically. Inpatient echo EF 45%. AICD in place. afib CHADS VASC2 = 4. patient was not interested in anticoagulation. acute on chronic systolic and diastolic CHF - continue bumex 1 mg BID. good diuresis. follow Cr. await CTA chest results. troponin negative x 2. unlikely ACS. will follow. Slade Cole MD Mar 02, 2017 13:32
[2017-03-02] MEDS ORDERED: IOHEXOL 350 MG/ML 10 ML VIAL (for RAD DIAG) IV ONE (13:46)
[2017-03-02] MEDS: FREE WATER G-TUBE SCH ×2 (14:00→20:21)
--- NOTE | 2017-03-02 14:14 | RADRPT ---
EXAM DATE/TIME: 03/02/2017 13:46 [facility] COMPARISON: CT SIMULATION, August 08, 2013, 11:37. INDICATIONS : Respiratory failure. Rule out embolism. IV CONTRAST: 75 cc Omnipaque 350 (iohexol) IV RADIATION DOSE: 23.30 CTDIvol (mGy) MEDICAL HISTORY : Hypertension. Chronic obstructive pulmonary disease. SURGICAL HISTORY : CABG Pacemaker. ENCOUNTER: Initial ACUITY: 1 day PAIN SCALE: Non-responsive LOCATION: chest TECHNIQUE: Volumetric scanning of the chest was performed using a pulmonary embolism protocol MIP images were re constructed. Using automated exposure control and adjustment of the mA and/or kV according to patien t size, radiation dose was kept as low as reasonably achievable to obtain optimal diagnostic quality images. FINDINGS: The examination is of good diagnostic quality. No pulmonary embolus is identified. The heart is enlarged. There is no significant hilar or mediastinal adenopathy. There are small bilateral effusions with considerable atelectatic changes in both lung bases. No susp icious pulmonary lesions are seen. The visualized bony structures are grossly intact. The limited portions of upper abdomen visualized are unremarkable. Note is made of an endotracheal tube and a transvenous pacer. CONCLUSION: 1. No pulmonary embolus identified. 2. Small bilateral effusions with significant dependent atelectasis bilaterally. Riley Bob MD on March 02, 2017 at 14:09 Board Certified Radiologist. This report was verified electronically.
[2017-03-02] MEDS: cefTRIAXone INJ 1,000 MG in SODIUM CHLORIDE 0.9% INJ 100 ML IV SCH (14:41)
[2017-03-02] MEDS: LEVOFLOXACIN/DEXTROSE 250 MG/50 ML IV SCH (17:07)
[2017-03-02] MEDS: ATORVASTATIN 40 MG TAB PO SCH (20:21)
[2017-03-02] MEDS: RESP: ALBUTEROL 2.5 MG/IPRATROPIUM 0.5 MG NEB (PRN) NEB ×2 (21:17→23:22)
[2017-03-03] VITALS (17 sets, daily range): BP systolic 116–137; BP diastolic 66–74; PULSE 75–100; RESP 12–15; TEMP 98.4–99.2; O2SAT 87–100
--- NOTE | 2017-03-03 02:36 | RADRPT ---
EXAM DATE/TIME: 03/03/2017 01:36 [facility] COMPARISON: CHEST SINGLE AP, March 02, 2017, 10:40. INDICATIONS : Shortness of breath, possible pulmonary disease. MEDICAL HISTORY : Hypertension. Hypercholesterolemia. Arthritis. COPD Sleep Apnea SURGICAL HISTORY : CABG. Pacemaker. ENCOUNTER: Subsequent ACUITY: 1 week PAIN SCORE: Non-responsive. LOCATION: Bilateral chest FINDINGS: The patient is status post sternotomy. There is a pacing cysts a.c. device in place from the left sub clavian approach. ET tube, NG tube and right internal jugular central line are well placed. The heart size is enlarged. There is persistent prominence of the interstitial markings especially centrally. This increased density at the bases bilaterally with silhouetting of the hemidiaphragms. CONCLUSION: 1. Cardiomegaly with suspected CHF. 2. Bibasilar areas of consolidation, atelectasis, and/or effusion. Nick Menchaca MD on March 03, 2017 at 2:33 Board Certified Radiologist. This report was verified electronically.
[2017-03-03] MEDS: PROPOFOL 1000 MG/100 ML INJ 100 ML IV SCH ×5 (02:38→19:21)
[2017-03-03] MEDS: CHLORHEXIDINE GLUCONATE 2 % 1 PACK (2 CLOTHS) TOP SCH (02:39)
[2017-03-03 03:09] LABS: AUTOMATED NEUTROPHIL # 8.1 TH/MM3 (1.8-7.7); BASOPHIL % 0.2 % (0.0-2.0); HEMATOCRIT 47.4 % (39.0-51.0); HEMO FLAGS DIFF FINAL; LYMPH % 3.5 % (9.0-44.0); LYMPHOCYTE # 0.3 TH/MM3 (1.0-4.8); MEAN CELL VOLUME 95.3 FL (80.0-100.0); MEAN CORPUSCULAR HEMOGLOBIN 30.6 PG (27.0-34.0); MEAN CORPUSCULAR HGB CONC 32.1 % (32.0-36.0); NEUT % 87.3 % (16.0-70.0); PLATELET COUNT 123 TH/MM3 (150-450); RED BLOOD COUNT 4.97 MIL/MM3 (4.50-5.90); RED CELL DISTRIBUTION WIDTH 15.8 % (11.6-17.2); WHITE BLOOD COUNT 9.3 TH/MM3 (4.0-11.0)
[2017-03-03 03:33] LABS: BICARBONATE 43.2 MEQ/L (21.0-32.0); POTASSIUM 4.1 MEQ/L (3.5-5.1)
[2017-03-03] MEDS: fentaNYL DRIP 250 ML IV SCH (03:59)
[2017-03-03] MEDS: FREE WATER G-TUBE SCH ×3 (04:00→21:14)
[2017-03-03] MEDS: INSULIN NovoLIN REGULAR SUPPLEMENTAL SCALE SQ SCH ×4 (04:00→23:00)
[2017-03-03] MEDS: HEPARIN SODIUM - SQ 10,000 UNITS/ML VIAL SQ SCH ×2 (04:00→16:10)
[2017-03-03] MEDS: RESP: ALBUTEROL 2.5 MG/IPRATROPIUM 0.5 MG NEB (PRN) NEB ×2 (04:20→10:46)
--- NOTE | 2017-03-03 08:21 | PD.CARD.PN ---
Subjective Subjective Remarks no overnight events critically ill sedated/intubated Objective Medications Current Medications Medications (Trade) Dose Ordered Sig/Luci Route Start Time Stop Time Status Last Admin Sodium Chloride 2 ml 2 ml UNSCH PRN IVF 02/23/17 13:30 Propofol 100 ml @ 0 mls/hr TITRATE IV 02/23/17 14:30 03/03/17 04:34 (fentaNYL DRIP) 250 ml @ 0 mls/hr TITRATE IV 02/23/17 14:30 03/03/17 03:59 (Protonix Inj) 40 mg DAILY IV 02/23/17 17:00 03/02/17 08:21 (Heparin Inj) 5,000 units Q12H SQ 02/23/17 17:00 03/03/17 04:00 Miscellaneous Information 1 Q361D XX 02/23/17 16:00 02/23/17 16:00 (Chlorhexidine 2% Cloth) Taper DAILY@04 TOP 02/24/17 04:00 02/20/18 03:59 03/03/17 02:39 (Chlorhexidine 2% Cloth) 3 pack UNSCH PRN TOP 02/23/17 16:00 (D50w (Vial) Inj) 25 ml UNSCH PRN IV PUSH 02/23/17 16:00 (Glucagon Inj) 1 mg UNSCH PRN OTHER 02/23/17 16:00 (NovoLIN R SUPPLEMENTAL SCALE) 1 Q6H SQ 02/23/17 17:00 02/24/17 12:05 (Aspirin) 325 mg DAILY PO 02/24/17 09:00 03/02/17 08:18 (Lipitor) 40 mg HS PO 02/23/17 21:00 03/02/17 20:21 Clopidogrel Bisulfate 75 mg 75 mg DAILY PO 02/24/17 09:00 03/02/17 08:18 (Levaquin 250 Mg Premix Inj) 50 ml @ 50 mls/hr Q24H IV 02/24/17 17:00 03/02/17 17:07 (Senna Liq) 8.8 mg DAILY PO 02/24/17 09:00 03/02/17 08:18 Docusate Sodium 100 mg 100 mg Q12HR PO 02/24/17 09:00 03/02/17 08:17 (Rocephin Inj/NS Inj) 100 ml @ 200 mls/hr Q24H IV 02/25/17 14:00 03/02/17 14:41 (Bumex Inj) 1 mg BID@09,18 IV PUSH 02/26/17 09:00 03/02/17 17:09 (Lactulose Liq) 15 ml BID PO 02/27/17 09:00 03/02/17 08:17 (SoluMEDROL INJ) 40 mg BID IV PUSH 03/01/17 09:00 03/02/17 20:20 (Free Water) 250 ml Q8HR G-TUBE 03/02/17 14:00 03/03/17 04:00 Vital Signs / I&O Vital Signs Date Time Temp Pulse Resp B/P Pulse Ox O2 Delivery O2 Flow Rate FiO2 03/03/17 08:02 92 65 03/03/17 06:00 79 03/03/17 04:21 93 75 03/03/17 04:00 85 03/03/17 04:00 98.7 75 12 116/67 93 03/03/17 04:00 75 03/03/17 02:00 80 03/03/17 00:00 82 03/03/17 00:00 60 03/03/17 00:00 98.8 82 12 122/72 87 03/02/17 23:22 89 60 03/02/17 22:00 80 03/02/17 21:17 90 60 03/02/17 20:00 87 03/02/17 20:00 99.1 87 13 122/73 89 03/02/17 20:00 60 03/02/17 18:00 89 03/02/17 16:10 90 60 03/02/17 16:00 70 03/02/17 16:00 98.6 74 12 119/73 90 03/02/17 16:00 85 03/02/17 14:00 85 03/02/17 12:08 90 70 03/02/17 12:00 98.6 90 16 147/88 91 03/02/17 12:00 90 03/02/17 12:00 70 03/02/17 10:00 75 03/02/17 08:38 91 75 I/O 03/02/17 03/02/17 03/02/17 03/03/17 03/03/17 03/03/17 07:00 15:00 23:00 07:00 15:00 23:00 Intake Total 790 ml 1209 ml 1143 ml 1063 ml Output Total 500 ml 1250 ml 1200 ml 425 ml Balance 290 ml -41 ml -57 ml 638 ml IV Total 320 ml 517 ml 529 ml 456 ml Tube Feeding 370 ml 452 ml 364 ml 357 ml Other 100 ml 240 ml 250 ml 250 ml Output Urine Total 500 ml 1250 ml 1200 ml 425 ml Physical Exam GENERAL: Well-nourished, well-developed patient. SKIN: Warm and dry. HEAD: Normocephalic. EYES: No scleral icterus. No injection or drainage. NECK: Supple, trachea midline. No JVD or lymphadenopathy. CARDIOVASCULAR: Irr Irr without murmurs, gallops, or rubs. RESPIRATORY: Breath sounds equal bilaterally. No accessory muscle use. GASTROINTESTINAL: Abdomen soft, non-tender, nondistended. EXTREMITIES: No cyanosis, or edema. NEUROLOGICAL: Awake, alert, and oriented x 3. Non-focal. Laboratory Laboratory Tests Test 03/03/17 02:32 White Blood Count 9.3 TH/MM3 Red Blood Count 4.97 MIL/MM3 Hemoglobin 15.2 GM/DL Hematocrit 47.4 % Mean Corpuscular Volume 95.3 FL Mean Corpuscular Hemoglobin 30.6 PG Mean Corpuscular Hemoglobin 32.1 % Concent Red Cell Distribution Width 15.8 % Platelet Count 123 TH/MM3 Mean Platelet Volume 9.4 FL Neutrophils (%) (Auto) 87.3 % Lymphocytes (%) (Auto) 3.5 % Monocytes (%) (Auto) 9.0 % Eosinophils (%) (Auto) 0.0 % Basophils (%) (Auto) 0.2 % Neutrophils # (Auto) 8.1 TH/MM3 Lymphocytes # (Auto) 0.3 TH/MM3 Monocytes # (Auto) 0.8 TH/MM3 Eosinophils # (Auto) 0.0 TH/MM3 Basophils # (Auto) 0.0 TH/MM3 CBC Comment DIFF FINAL Differential Comment Sodium Level 148 MEQ/L Potassium Level 4.1 MEQ/L Chloride Level 102 MEQ/L Carbon Dioxide Level 43.2 MEQ/L Anion Gap 3 MEQ/L Blood Urea Nitrogen 36 MG/DL Creatinine 0.79 MG/DL Estimat Glomerular Filtration 98 ML/MIN Rate Random Glucose 123 MG/DL Calcium Level 9.2 MG/DL Imaging Last Impressions Chest X-Ray 03/03/17 0000 Signed Impressions: Service Date/Time: Friday, March 03, 2017 01:36 - CONCLUSION: 1. Cardiomegaly with suspected CHF. 2. Bibasilar areas of consolidation, atelectasis, and/or effusion. Nick Menchaca MD CT Angiography 03/02/17 1206 Signed Impressions: Service Date/Time: Thursday, March 02, 2017 13:46 - CONCLUSION: 1. No pulmonary embolus identified. 2. Small bilateral effusions with significant dependent atelectasis bilaterally. Riley Bob MD Lower Extremity Ultrasound 02/27/17 0000 Signed Impressions: Service Date/Time: Monday, February 27, 2017 08:31 - CONCLUSION: Normal examination. Nick Farrell MD Abdomen X-Ray 02/24/17 0000 Signed Impressions: Service Date/Time: Friday, February 24, 2017 10:43 - CONCLUSION: 1. Nasogastric tube just across the GE junction. 2. Minimal nonspecific bowel gas dilatation. Artur Bob MD FACR Assessment and Plan Problem List: (1) Ischemic dilated cardiomyopathy Assessment and Plan: Respiratory failure/COPD exacerbation and acute on chronic combined CHF Continue IV diuresis Follow renal function Daily Weights Strict I&O Low sodium diet (2) CAD (coronary artery disease) (3) Hypertension (4) COPD (chronic obstructive pulmonary disease) (5) Atrial flutter (6) COPD with acute exacerbation (7) Acute respiratory failure Problem Qualifiers (1) Acute respiratory failure: Qualified Code: J96.02 - Acute respiratory failure with hypercapnia Stanley Alvarez MD Mar 03, 2017 08:21 Stanley Alvarez MD Mar 03, 2017 08:21
[2017-03-03] MEDS: ASPIRIN 325 MG TAB PO SCH (09:04)
[2017-03-03] MEDS: CLOPIDOGREL 75 MG TAB PO SCH (09:04)
[2017-03-03] MEDS: DOCUSATE SODIUM 100 MG/10 ML UDC PO SCH ×2 (09:05→21:13)
[2017-03-03] MEDS: SENNOSIDES SYRUP 8.8 MG/5 ML CUP PO SCH (09:05)
[2017-03-03] MEDS: PANTOPRAZOLE SODIUM 40 MG VIAL IV SCH (09:05)
[2017-03-03] MEDS: BUMETANIDE INJ 1 MG/4 ML VIAL IV PUSH SCH ×2 (09:05→16:09)
[2017-03-03] MEDS: LACTULOSE SYRUP 20 GM/30 ML CUP PO SCH ×2 (09:05→21:13)
[2017-03-03] MEDS: methylPREDNISolone SOD SUCC 40 MG/1 ML VIAL IV PUSH SCH ×2 (09:06→21:13)
[2017-03-03] MEDS: RESP: ALBUTEROL 2.5 MG/IPRATROPIUM 0.5 MG NEB (SCH) NEB ×3 (10:48→21:18)
--- NOTE | 2017-03-03 10:56 | HHI.PR ---
Subjective Remarks Patient remains sedated with Diprivan and Fentanyl. On PRVC/AC RR 12, TV 500, IT : 1.10, PEEP:10, FIO2: 60%. CTA chest yesterday negative for PE. Tolerating tube feeds. Objective Vital Signs Vital Signs Date Time Temp Pulse Resp B/P Pulse Ox O2 Delivery O2 Flow Rate FiO2 03/03/17 08:02 92 65 03/03/17 06:00 79 03/03/17 04:21 93 75 03/03/17 04:00 85 03/03/17 04:00 98.7 75 12 116/67 93 03/03/17 04:00 75 03/03/17 02:00 80 03/03/17 00:00 82 03/03/17 00:00 60 03/03/17 00:00 98.8 82 12 122/72 87 03/02/17 23:22 89 60 03/02/17 22:00 80 03/02/17 21:17 90 60 03/02/17 20:00 87 03/02/17 20:00 99.1 87 13 122/73 89 03/02/17 20:00 60 03/02/17 18:00 89 03/02/17 16:10 90 60 03/02/17 16:00 70 03/02/17 16:00 98.6 74 12 119/73 90 03/02/17 16:00 85 03/02/17 14:00 85 03/02/17 12:08 90 70 03/02/17 12:00 98.6 90 16 147/88 91 03/02/17 12:00 90 03/02/17 12:00 70 I/O 03/02/17 03/02/17 03/02/17 03/03/17 03/03/17 03/03/17 07:00 15:00 23:00 07:00 15:00 23:00 Intake Total 790 ml 1209 ml 1143 ml 1063 ml Output Total 500 ml 1250 ml 1200 ml 425 ml Balance 290 ml -41 ml -57 ml 638 ml IV Total 320 ml 517 ml 529 ml 456 ml Tube Feeding 370 ml 452 ml 364 ml 357 ml Other 100 ml 240 ml 250 ml 250 ml Output Urine Total 500 ml 1250 ml 1200 ml 425 ml Result Diagram: 03/03/17 0232 03/03/17 0232 Other Results Laboratory Tests Test 03/03/17 02:32 White Blood Count 9.3 TH/MM3 Red Blood Count 4.97 MIL/MM3 Hemoglobin 15.2 GM/DL Hematocrit 47.4 % Mean Corpuscular Volume 95.3 FL Mean Corpuscular Hemoglobin 30.6 PG Mean Corpuscular Hemoglobin 32.1 % Concent Red Cell Distribution Width 15.8 % Platelet Count 123 TH/MM3 Mean Platelet Volume 9.4 FL Neutrophils (%) (Auto) 87.3 % Lymphocytes (%) (Auto) 3.5 % Monocytes (%) (Auto) 9.0 % Eosinophils (%) (Auto) 0.0 % Basophils (%) (Auto) 0.2 % Neutrophils # (Auto) 8.1 TH/MM3 Lymphocytes # (Auto) 0.3 TH/MM3 Monocytes # (Auto) 0.8 TH/MM3 Eosinophils # (Auto) 0.0 TH/MM3 Basophils # (Auto) 0.0 TH/MM3 CBC Comment DIFF FINAL Differential Comment Sodium Level 148 MEQ/L Potassium Level 4.1 MEQ/L Chloride Level 102 MEQ/L Carbon Dioxide Level 43.2 MEQ/L Anion Gap 3 MEQ/L Blood Urea Nitrogen 36 MG/DL Creatinine 0.79 MG/DL Estimat Glomerular Filtration 98 ML/MIN Rate Random Glucose 123 MG/DL Calcium Level 9.2 MG/DL Objective Remarks GENERAL: Patient is 66 yo intubated and sedated SKIN: Warm and dry. HEAD: Normocephalic. EYES: No scleral icterus. No injection or drainage. NECK: Supple, trachea midline. No JVD or lymphadenopathy. CARDIOVASCULAR: Regular rate and rhythm without murmurs, gallops, or rubs. RESPIRATORY: Breath sounds equal bilaterally. No accessory muscle use. GASTROINTESTINAL: Abdomen soft, non-tender, nondistended. MUSCULOSKELETAL: No cyanosis, or edema. Neuro: Sedated A/P Assessment and Plan 1)Acute on chronic hypercapnic resp failure- intubated 2)COPD with chronic bronchitis and acute exacerbation. 3)Congestive heart failure. 4)Atelectasis b/l 5)Hypertension and hyperlipidemia. 6)Possible obstructive sleep apnea. 7)Afib Plan Continue with vent support keep sat >02% Bronchodilators, Solumederol 40mg IV BID. Will give Diamox 250mg IV x1 On PRVC/AC RR 12, TV 500, IT:1.10, PEEP:10, FIo2 60%, decrease FIO2 as kristie CTA chest negative for PE, Doppler US LE negative for DVT on 02/27 Continue with diuretics- on Bumex 1mg BID Echo showed EF 40-45%, cards is following Continue with abx ( Rocephin, Levaquin) GI/DVT prophylaxis Continue treatment plan Georgia Ocampo MD Mar 03, 2017 10:56
--- NOTE | 2017-03-03 11:21 | HHI.CCPN ---
Subjective Remarks/Hospital Course The patient is a 66-year-old male with past medical history of COPD, cardiomyopathy, hypertension, gastroesophageal reflux disease, hyperlipidemia and coronary artery disease. The patient presented to [facility] ED with a 2-week history of progressive worsening shortness of breath. On arrival to the ED he was initially placed on a non-rebreather mask and ABG was performed which showed acute hypercapnic respiratory failure with a pH of 7.14, CO2 121, pAO2 141, bicarb 40, sats 93%. His laboratory data significant for hyperkalemia with potassium level 6.0 and acute renal failure with a BUN of 43 and creatinine 2.07 respectively. The chest x-ray showed cardiomegaly and findings of vascular congestion without overt failure. In the ED the patient was intubated with etomidate and rocuronium and placed on full mechanical ventilation. In addition, he is scheduled to receive 10 units IV regular insulin, 1 amp of D50 and calcium gluconate for hyperkalemia. He received cefepime, azithromycin, Solu-Medrol 125 milligrams IV push and bronchodilator treatment. When seen the patient is on Diprivan infusion for sedation and full mechanical ventilation. Per the patient is not on any oxygen at home and he occasionally smokes cigarettes. 02/24 Patient is intubated and sedated with Diprivan and Fentanyl. Switched to PC/ AC with RR 12, IP:24, IT:1.06, PEEP: 8 and FIO2 100%. CXR this morning showed interval development of bilateral perihilar and lower lung zone airspace opacity he was given Lasix 60mg total overnight. 02/25 Patient remains sedated and intubated with Diprivan and Fentanyl. Afebrile.On PC/AC with RR 12, IP:22, IT:1.10, PEEP:10, FIO2 70%. Afebrile. Renal function worse today with Cr: 1.90 from 1.72 UO: 1150ml in 24 hrs 02/26 No acute events overnight. Sedated with Fentanyl and Diprivan and intubated. Afebrile. His O2 requirements is less now on PC/AC with IP:22, IT: 1.1 with PEEP: 10 and FIO2 55%. Renal function improving with Cr: 1.42 today from 1.90. Tolerating tube feeds. 02/27 Patient remains sedated with Diprivan and Fentanyl infusion and intubated. Afebrile. 02/28: Remains sedated, orally intubated on mechanical ventilation. Being diuresed with Bumex. Tolerating tube feeds. 03/01: Remains sedated, orally intubated on mechanical ventilation. Being diabetes. Remains on PEEP of 10 and FiO2 60% 03/02 Patient remains sedated with Diprivan and Fentanyl and intubated. On PC/AC with PEEP: 10 and FIO2 80% overnight and sats 93-94%. Afebrile. 03/03: The patient remains on high respiratory requirements PEEP of 10, and FiO2 70%. Objective Vital Signs Date Time Temp Pulse Resp B/P Pulse Ox O2 Delivery O2 Flow Rate FiO2 03/03/17 10:48 90 65 03/03/17 06:00 79 03/03/17 04:00 98.7 12 116/67 Intake and Output 03/02/17 03/02/17 03/03/17 08:00 16:00 00:00 Intake Total 790 ml 1209 ml 1143 ml Output Total 500 ml 1250 ml 1200 ml Balance 290 ml -41 ml -57 ml Result Diagram: 03/03/17 0232 03/03/17 0232 Imaging Last Impressions Chest X-Ray 02/28/17 0600 Signed Impressions: Service Date/Time: Tuesday, February 28, 2017 03:29 - CONCLUSION: No change in the pulmonary edema. Garrick Hinton Jr., MD Lower Extremity Ultrasound 02/27/17 0000 Signed Impressions: Service Date/Time: Monday, February 27, 2017 08:31 - CONCLUSION: Normal examination. Nick Farrell MD Abdomen X-Ray 02/24/17 0000 Signed Impressions: Service Date/Time: Friday, February 24, 2017 10:43 - CONCLUSION: 1. Nasogastric tube just across the GE junction. 2. Minimal nonspecific bowel gas dilatation. Artur Bob MD FACR Objective Remarks GENERAL: Patient is 66 yo intubated and sedated. SKIN: Warm and dry. HEAD: Normocephalic. EYES: No scleral icterus. No injection or drainage. NECK: Supple, trachea midline. No JVD or lymphadenopathy. CARDIOVASCULAR: Regular rate and rhythm without murmurs, gallops, or rubs. RESPIRATORY: On mechanical ventilation, orally intubated, Breath sounds equal bilaterally. Coarse BS GASTROINTESTINAL: Abdomen soft, non-tender, nondistended. MUSCULOSKELETAL: No edema. Neuro: Sedated, orally intubated, arousable, but not following commands, easily agitated. Urinary Catheter: Yes A/P Assessment and Plan 1. Acute hypercapnic and hypoxemic respiratory failure. 2. COPD exacerbation. 3. Acute renal failure. 4. Hyperkalemia. 5. Obstructive sleep apnea and morbid obesity. 6. Cardiomyopathy. 7. History of coronary artery disease. 8. Gastroesophageal reflux disease. 9. Hypertension. 10. Hyperlipidemia. 11 Pulm edema 12. Acute on chronic systolic and diastolic CHF Plan: Neuro: On Diprivan and Fentanyl infusion for sedation. Daily sedation vacation when appropriate. CV: Monitor HR and BP keep MAP>65mmHg On aspirin 325 milligrams p.o. daily and Plavix 75 mg p.o. daily. Echo showed EF 40-45%, nl LV diastolic function Cardiology following Pulm: On PC/AC RR 12, IP:22, IT:1.1 PEEP: 10, FIO2: 80%, decrease FIO2 as kristie Continue with vent support and maintain sats above 92%. Check CXR Bronchodilators every 4 hours, Solu-Medrol 40 mg IV BID. Pulm-Dr. Lashell Padron following CTA chest showed no PE, small pleural effusions : Monitor renal function Is and Os and avoid nephrotoxins. Electrolytes replacement per protocol.. On Bumex 1mg BID, place on Free water 250ml Q8, monitor sodium level. GI: On Protonix 40 milligrams IV daily for GI prophylaxis. On TF- Glucerna 1.5 @45ml/hr Senna, Colace for bowel regimen, Lactulose 15mg BID 02/24 KUB abdomen: Minimal non-specific bowel gas dilatation ID: continue with empiric abx(Levaquin, Rocephin) and monitor for signs of infections( fever and WBC) Follow up on sputum cx-NGTD Heme: Monitor CBC. Endo: SSI with Accu-Chek q. 6-hour for glycemic control. GI prophylaxis with Protonix 40 mg daily and DVT prophylaxis with SCDs and heparin SQ Doppler US LE no DVT This patient remains critically ill with one or more organ systems which are or may become a threat to life. I have spent in excess of 35 minutes discontinuously in the care and management of this patient. This time is exclusive of procedures, and includes, but is not limited to, evaluation of the patient, review of the medical record, discussions with family, consultants, nursing staff, or respiratory therapy, and documentation in the medical record. Physician Rolanda Maria MD Mar 03, 2017 11:21
[2017-03-03] MEDS ORDERED: fentaNYL DRIP 250 ML IV SCH (11:30)
[2017-03-03] MEDS: cefTRIAXone INJ 1,000 MG in SODIUM CHLORIDE 0.9% INJ 100 ML IV SCH (14:24)
[2017-03-03] MEDS: LEVOFLOXACIN 500 MG PREMIX INJ 100 ML IV SCH (16:11)
[2017-03-03] MEDS: ATORVASTATIN 40 MG TAB PO SCH (21:00)
[2017-03-03] MEDS: SODIUM CHLORIDE 0.9% FLUSH 10 ML FLUSH IVF PRN (21:13)
[2017-03-04] VITALS (19 sets, daily range): BP systolic 106–131; BP diastolic 67–84; PULSE 74–95; RESP 12–18; TEMP 99.1–99.9; O2SAT 88–95
[2017-03-04] MEDS: RESP: ALBUTEROL 2.5 MG/IPRATROPIUM 0.5 MG NEB (SCH) NEB ×6 (00:12→19:28)
[2017-03-04] MEDS ORDERED: MIDAZOLAM HCL 2 MG/2 ML VIAL IV PUSH ONE (01:00)
[2017-03-04] MEDS: PROPOFOL 1000 MG/100 ML INJ 100 ML IV SCH ×7 (01:44→22:14)
[2017-03-04] MEDS: CHLORHEXIDINE GLUCONATE 2 % 1 PACK (2 CLOTHS) TOP SCH (04:00)
[2017-03-04] MEDS: HEPARIN SODIUM - SQ 10,000 UNITS/ML VIAL SQ SCH ×2 (04:51→16:06)
[2017-03-04] MEDS: INSULIN NovoLIN REGULAR SUPPLEMENTAL SCALE SQ SCH ×4 (05:00→23:00)
[2017-03-04 05:25] LABS: BLOOD GAS BASE EXCESS 11.3 mmol/L (-2-2); BLOOD GAS CARBOXYHEMOGLOBIN 1.4 % (0-4); BLOOD GAS HCO3 37 mmol/L (22-26); BLOOD GAS METHEMOGLOBIN 1.3 % (0-2); BLOOD GAS O2 HGB SATURATION 86 % (90-100); BLOOD GAS OXYGEN CONTENT 18.8 Vol % (12.0-20.0); BLOOD GAS PCO2 64 mmHg (38-42); BLOOD GAS PO2 59 mmHg (61-120); BLOOD GAS TOTAL HGB 15.6 G/DL (12.0-16.0); TEMP CORR TO 98.6
[2017-03-04 05:26] LABS: CRITICAL VALUE YES; DRAW SITE RT RADIAL; FIO2 70 %; NUMBER OF ARTERIAL PUNCTURES 1; OXYGEN DEVICE VENTILATOR; STAT NO; ULNAR PULSE PRESENT; VENT SETTINGS ACPC20/600/1.1IT/+10
[2017-03-04 05:45] LABS: MAGNESIUM 2.8 MG/DL (1.5-2.5); POTASSIUM 3.6 MEQ/L (3.5-5.1)
[2017-03-04 05:55] LABS: HEMATOCRIT 47.1 % (39.0-51.0); MEAN CELL VOLUME 96.2 FL (80.0-100.0); MEAN CORPUSCULAR HEMOGLOBIN 30.6 PG (27.0-34.0); MEAN CORPUSCULAR HGB CONC 31.9 % (32.0-36.0); PLATELET COUNT 141 TH/MM3 (150-450); RED CELL DISTRIBUTION WIDTH 16.2 % (11.6-17.2); REVIEW FLAG FINAL; WHITE BLOOD COUNT 8.9 TH/MM3 (4.0-11.0)
[2017-03-04] MEDS: FREE WATER G-TUBE SCH ×3 (06:00→22:00)
--- NOTE | 2017-03-04 06:34 | RADRPT ---
EXAM DATE/TIME: 03/04/2017 05:12 [facility] COMPARISON: CHEST SINGLE AP, March 03, 2017, 1:36. INDICATIONS : Shortness of breath, possible pulmonary disease. MEDICAL HISTORY : Hypertension. Hypercholesterolemia. Arthritis. COPD Sleep Apnea SURGICAL HISTORY : Pacemaker. CABG. ENCOUNTER: Subsequent ACUITY: 1 week PAIN SCORE: Non-responsive. LOCATION: Bilateral chest FINDINGS: The ET tube, NG tube, and right internal jugular central line are well placed. There is a pacing favio ce seen at the left chest. The cardiac silhouette is enlarged. The patient is status post sternotomy. There is increased density at the bases bilaterally. There still in the hemidiaphragms. CONCLUSION: Bibasilar areas of consolidation, atelectasis and possible effusions which are unchanged from the keagan or exam. Cardiomegaly. The patient is status post sternotomy and has a pacing device in place. Nick Menchaca MD on March 04, 2017 at 6:31 Board Certified Radiologist. This report was verified electronically.
[2017-03-04] MEDS ORDERED: FUROSEMIDE 40 MG/4 ML VIAL IV PUSH ONE (07:15)
--- NOTE | 2017-03-04 07:30 | HHI.CCPN ---
Subjective Remarks/Hospital Course The patient is a 66-year-old male with past medical history of COPD, cardiomyopathy, hypertension, gastroesophageal reflux disease, hyperlipidemia and coronary artery disease. The patient presented to [facility] ED with a 2-week history of progressive worsening shortness of breath. On arrival to the ED he was initially placed on a non-rebreather mask and ABG was performed which showed acute hypercapnic respiratory failure with a pH of 7.14, CO2 121, pAO2 141, bicarb 40, sats 93%. His laboratory data significant for hyperkalemia with potassium level 6.0 and acute renal failure with a BUN of 43 and creatinine 2.07 respectively. The chest x-ray showed cardiomegaly and findings of vascular congestion without overt failure. In the ED the patient was intubated with etomidate and rocuronium and placed on full mechanical ventilation. In addition, he is scheduled to receive 10 units IV regular insulin, 1 amp of D50 and calcium gluconate for hyperkalemia. He received cefepime, azithromycin, Solu-Medrol 125 milligrams IV push and bronchodilator treatment. When seen the patient is on Diprivan infusion for sedation and full mechanical ventilation. Per the patient is not on any oxygen at home and he occasionally smokes cigarettes. 02/24 Patient is intubated and sedated with Diprivan and Fentanyl. Switched to PC/ AC with RR 12, IP:24, IT:1.06, PEEP: 8 and FIO2 100%. CXR this morning showed interval development of bilateral perihilar and lower lung zone airspace opacity he was given Lasix 60mg total overnight. 02/25 Patient remains sedated and intubated with Diprivan and Fentanyl. Afebrile.On PC/AC with RR 12, IP:22, IT:1.10, PEEP:10, FIO2 70%. Afebrile. Renal function worse today with Cr: 1.90 from 1.72 UO: 1150ml in 24 hrs 02/26 No acute events overnight. Sedated with Fentanyl and Diprivan and intubated. Afebrile. His O2 requirements is less now on PC/AC with IP:22, IT: 1.1 with PEEP: 10 and FIO2 55%. Renal function improving with Cr: 1.42 today from 1.90. Tolerating tube feeds. 02/27 Patient remains sedated with Diprivan and Fentanyl infusion and intubated. Afebrile. 02/28: Remains sedated, orally intubated on mechanical ventilation. Being diuresed with Bumex. Tolerating tube feeds. 03/01: Remains sedated, orally intubated on mechanical ventilation. Being diabetes. Remains on PEEP of 10 and FiO2 60% 03/02 Patient remains sedated with Diprivan and Fentanyl and intubated. On PC/AC with PEEP: 10 and FIO2 80% overnight and sats 93-94%. Afebrile. 03/03: The patient remains on high respiratory requirements PEEP of 10, and FiO2 70%. 03/04: Tmax 99.9. Overnight the patient was noted to have desaturations the patient received a bolus of midazolam and fentanyl for ventilator dyssynchrony. The patient was redosed with Diamox with approximately 2.5 L diuresis in the last 12 hours. The patient continues on an FiO2 of 70% with PEEP of 10 to maintain an O2 sat of 90%. Objective Vital Signs Date Time Temp Pulse Resp B/P Pulse Ox O2 Delivery O2 Flow Rate FiO2 03/04/17 06:00 84 03/04/17 04:31 90 70 03/04/17 04:00 99.9 12 117/72 Intake and Output 03/03/17 03/03/17 03/04/17 08:00 16:00 00:00 Intake Total 1063 ml 1274 ml 1381 ml Output Total 425 ml 1700 ml 1650 ml Balance 638 ml -426 ml -269 ml Result Diagram: 03/04/17 0409 03/04/17 0409 Other Results Laboratory Tests Test 03/04/17 05:20 Blood Gas Puncture Site RT RADIAL Blood Gas Patient Temperature 98.6 Blood Gas HCO3 37 mmol/L (22-26) Blood Gas Base Excess 11.3 mmol/L (-2-2) Blood Gas Oxygen Saturation 86 % (90-100) Arterial Blood pH 7.38 (7.380-7.420) Arterial Blood Partial 64 mmHg (38-42) Pressure CO2 Arterial Blood Partial 59 mmHg Pressure O2 (61-120) Arterial Blood Oxygen Content 18.8 Vol % (12.0-20.0) Arterial Blood 1.4 % (0-4) Carboxyhemoglobin Arterial Blood Methemoglobin 1.3 % (0-2) Blood Gas Hemoglobin 15.6 G/DL (12.0-16.0) Oxygen Delivery Device VENTILATOR Blood Gas Ventilator Setting ACPC20/600/1.1IT/+10 Blood Gas Inspired Oxygen 70 % Imaging Last Impressions Chest X-Ray 02/28/17 0600 Signed Impressions: Service Date/Time: Tuesday, February 28, 2017 03:29 - CONCLUSION: No change in the pulmonary edema. Garrick Hinton Jr., MD Lower Extremity Ultrasound 02/27/17 0000 Signed Impressions: Service Date/Time: Monday, February 27, 2017 08:31 - CONCLUSION: Normal examination. Nick Farrell MD Abdomen X-Ray 02/24/17 0000 Signed Impressions: Service Date/Time: Friday, February 24, 2017 10:43 - CONCLUSION: 1. Nasogastric tube just across the GE junction. 2. Minimal nonspecific bowel gas dilatation. Artur Bob MD FACR Objective Remarks GENERAL: Patient is 66 yo intubated and sedated. SKIN: Warm and dry. HEAD: Normocephalic. EYES: No scleral icterus. No injection or drainage. NECK: Supple, trachea midline. No JVD or lymphadenopathy. CARDIOVASCULAR: Regular rate and rhythm without murmurs, gallops, or rubs. RESPIRATORY: On mechanical ventilation, orally intubated, Breath sounds equal bilaterally. Coarse BS GASTROINTESTINAL: Abdomen soft, non-tender, nondistended. OGT, tube feedings infusing MUSCULOSKELETAL: 2+ bilateral edema in upper extremities. Neuro: Sedated, orally intubated on propofol and fentanyl infusions. Urinary Catheter: Yes Assessment to: Continue [facility] insert reason: Measure Accurate Output Vascular Central Line Catheter: Yes Line: Central Venous Catheter Side: Right A/P Assessment and Plan 1. Acute hypercapnic and hypoxemic respiratory failure. 2. COPD exacerbation. 3. Acute renal failure. 4. Hyperkalemia. 5. Obstructive sleep apnea and morbid obesity. 6. Ischemic dilated Cardiomyopathy. S/P AICD 03/2015 7. History of coronary artery disease. 8. Gastroesophageal reflux disease. 9. Hypertension. 10. Hyperlipidemia. 11 Pulm edema 12. Acute on chronic systolic and diastolic CHF Plan: Neuro: On Diprivan and Fentanyl infusion for sedation. Daily sedation vacation when appropriate. Ventilator settings currently are elevated unable to perform sedation vacation. CV: Monitor HR 90's-100, will resume home med metoprolol at lower dose BP keep MAP>65mmHg On aspirin 325 milligrams p.o. daily and Plavix 75 mg p.o. daily. 01/2017 Echo showed EF 40-45%, nl LV diastolic function, No RWMA Cardiology following Pulm: On PC/AC RR 12, IP:22, IT:1.1 PEEP: 10, FIO2: 70%, decrease FIO2 as kristie Continue with vent support and maintain sats above 92%. CXR-bilateral consolidation in bases, atelectasis, possible effusions Bronchodilators every 4 hours, Solu-Medrol 40 mg IV BID. Pulm-Dr. Lashell Padron following CTA chest showed no PE, small pleural effusions : Monitor renal function Is and Os and avoid nephrotoxins. Electrolytes replacement per protocol.. On Bumex 1mg BID, place on Free water 250ml Q8, monitor sodium level. Lasix 40 mg IVP x 1 dose GI: On Protonix 40 milligrams IV daily for GI prophylaxis. On TF- Glucerna 1.5 @45ml/hr Senna, Colace for bowel regimen, Lactulose 15mg BID, last BM 03/04 02/24 KUB abdomen: Minimal non-specific bowel gas dilatation ID: continue with empiric abx(Levaquin (day 2), Rocephin(day 6) and monitor for signs of infections( fever and WBC) Follow up on sputum cx-NGTD Heme: Monitor CBC. Endo: SSI with Accu-Chek q. 6-hour for glycemic control. GI prophylaxis with Protonix 40 mg daily and DVT prophylaxis with SCDs and heparin SQ Doppler US LE no DVT This patient remains critically ill with one or more organ systems which are or may become a threat to life. I have spent in excess of 37 minutes discontinuously in the care and management of this patient. This time is exclusive of procedures, and includes, but is not limited to, evaluation of the patient, review of the medical record, discussions with family, consultants, nursing staff, or respiratory therapy, and documentation in the medical record. Physician Rolanda Maria MD Mar 04, 2017 07:30
[2017-03-04] MEDS: SENNOSIDES SYRUP 8.8 MG/5 ML CUP PO SCH (07:56)
[2017-03-04] MEDS: PANTOPRAZOLE SODIUM 40 MG VIAL IV SCH (07:56)
[2017-03-04] MEDS: LACTULOSE SYRUP 20 GM/30 ML CUP PO SCH ×2 (07:56→20:52)
[2017-03-04] MEDS: DOCUSATE SODIUM 100 MG/10 ML UDC PO SCH ×2 (07:56→20:52)
[2017-03-04] MEDS: methylPREDNISolone SOD SUCC 40 MG/1 ML VIAL IV PUSH SCH ×2 (07:56→20:52)
[2017-03-04] MEDS: ASPIRIN 325 MG TAB PO SCH (07:57)
[2017-03-04] MEDS: CLOPIDOGREL 75 MG TAB PO SCH (07:57)
[2017-03-04] MEDS: fentaNYL DRIP 250 ML IV SCH ×2 (07:58→23:38)
--- NOTE | 2017-03-04 08:14 | PD.CARD.PN ---
Subjective Subjective Remarks Overnight event noted FiO2 of 70% with PEEP of 10 to maintain an O2 sat of 90%. Objective Medications Current Medications Medications (Trade) Dose Ordered Sig/Luci Route Start Time Stop Time Status Last Admin Sodium Chloride 2 ml 2 ml UNSCH PRN IVF 02/23/17 13:30 03/03/17 21:13 (Diprivan 1000 Mg/100ml Inj) 100 ml @ 0 mls/hr TITRATE IV 02/23/17 14:30 03/04/17 07:56 (Protonix Inj) 40 mg DAILY IV 02/23/17 17:00 03/04/17 07:56 (Heparin Inj) 5,000 units Q12H SQ 02/23/17 17:00 03/04/17 04:51 Miscellaneous Information 1 Q361D XX 02/23/17 16:00 02/23/17 16:00 (Chlorhexidine 2% Cloth) Taper DAILY@04 TOP 02/24/17 04:00 02/20/18 03:59 03/03/17 02:39 (Chlorhexidine 2% Cloth) 3 pack UNSCH PRN TOP 02/23/17 16:00 (D50w (Vial) Inj) 25 ml UNSCH PRN IV PUSH 02/23/17 16:00 (Glucagon Inj) 1 mg UNSCH PRN OTHER 02/23/17 16:00 (NovoLIN R SUPPLEMENTAL SCALE) 1 Q6H SQ 02/23/17 17:00 02/24/17 12:05 (Aspirin) 325 mg DAILY PO 02/24/17 09:00 03/04/17 07:57 (Lipitor) 40 mg HS PO 02/23/17 21:00 03/03/17 21:00 (Plavix) 75 mg DAILY PO 02/24/17 09:00 03/04/17 07:57 (Senna Liq) 8.8 mg DAILY PO 02/24/17 09:00 03/04/17 07:56 Docusate Sodium 100 mg 100 mg Q12HR PO 02/24/17 09:00 03/04/17 07:56 (Rocephin Inj/NS Inj) 100 ml @ 200 mls/hr Q24H IV 02/25/17 14:00 03/03/17 14:24 (Bumex Inj) 1 mg BID@18 IV PUSH 02/26/17 09:00 03/03/17 16:09 (Lactulose Liq) 15 ml BID PO 02/27/17 09:00 03/04/17 07:56 (SoluMEDROL INJ) 40 mg BID IV PUSH 03/01/17 09:00 03/04/17 07:56 Water 250 ml 250 ml Q8HR G-TUBE 03/02/17 14:00 03/04/17 06:00 Levofloxacin/ Dextrose 100 ml @ 100 mls/hr Q24H IV 03/03/17 17:00 03/03/17 16:11 (fentaNYL DRIP) 250 ml @ 0 mls/hr TITRATE IV 03/04/17 01:00 03/04/17 07:58 (fentaNYL INJ) 50 mcg Q1H PRN IV PUSH 03/04/17 01:00 03/04/17 00:59 (Toprol Xl) 12.5 mg BID PO 03/04/17 09:00 Vital Signs / I&O Vital Signs Date Time Temp Pulse Resp B/P Pulse Ox O2 Delivery O2 Flow Rate FiO2 03/04/17 06:00 84 03/04/17 04:31 90 70 03/04/17 04:00 99.9 76 12 117/72 92 03/04/17 04:00 76 03/04/17 04:00 90 03/04/17 02:00 81 03/04/17 00:13 88 70 03/04/17 00:00 82 03/04/17 00:00 70 03/04/17 00:00 99.2 82 18 129/84 88 03/03/17 22:00 89 03/03/17 21:18 90 70 03/03/17 20:00 99.0 84 12 119/66 90 03/03/17 20:00 70 03/03/17 20:00 84 03/03/17 18:00 100 03/03/17 16:19 91 70 03/03/17 16:00 90 03/03/17 16:00 65 03/03/17 16:00 99.2 88 15 118/69 92 03/03/17 14:00 82 03/03/17 12:00 99.2 93 15 137/74 100 03/03/17 12:00 93 03/03/17 12:00 65 03/03/17 10:48 90 65 03/03/17 10:00 83 I/O 03/03/17 03/03/17 03/03/17 03/04/17 03/04/17 03/04/17 07:00 15:00 23:00 07:00 15:00 23:00 Intake Total 1063 ml 1274 ml 1381 ml 974 ml Output Total 425 ml 1700 ml 1650 ml 1075 ml Balance 638 ml -426 ml -269 ml -101 ml IV Total 456 ml 545 ml 650 ml 360 ml Tube Feeding 357 ml 489 ml 471 ml 364 ml Other 250 ml 240 ml 260 ml 250 ml Output Urine Total 425 ml 1700 ml 1650 ml 1075 ml # Bowel Movements 1 1 Physical Exam GENERAL: Well-nourished, well-developed patient. SKIN: Warm and dry. HEAD: Normocephalic. EYES: No scleral icterus. No injection or drainage. NECK: Supple, trachea midline. No JVD or lymphadenopathy. CARDIOVASCULAR: Irr Irr without murmurs, gallops, or rubs. RESPIRATORY: Breath sounds equal bilaterally. No accessory muscle use. GASTROINTESTINAL: Abdomen soft, non-tender, nondistended. EXTREMITIES: No cyanosis, or edema. NEUROLOGICAL: Awake, alert, and oriented x 3. Non-focal. Laboratory Laboratory Tests Test 03/04/17 03/04/17 04:09 05:20 White Blood Count 8.9 TH/MM3 Red Blood Count 4.90 MIL/MM3 Hemoglobin 15.0 GM/DL Hematocrit 47.1 % Mean Corpuscular Volume 96.2 FL Mean Corpuscular Hemoglobin 30.6 PG Mean Corpuscular Hemoglobin 31.9 % Concent Red Cell Distribution Width 16.2 % Platelet Count 141 TH/MM3 Mean Platelet Volume 9.5 FL Sodium Level 146 MEQ/L Potassium Level 3.6 MEQ/L Chloride Level 102 MEQ/L Carbon Dioxide Level 39.0 MEQ/L Anion Gap 5 MEQ/L Blood Urea Nitrogen 34 MG/DL Creatinine 0.85 MG/DL Estimat Glomerular Filtration 90 ML/MIN Rate Random Glucose 122 MG/DL Calcium Level 9.2 MG/DL Phosphorus Level 3.3 MG/DL Magnesium Level 2.8 MG/DL Blood Gas Puncture Site RT RADIAL Blood Gas Patient Temperature 98.6 Blood Gas HCO3 37 mmol/L Blood Gas Base Excess 11.3 mmol/L Blood Gas Oxygen Saturation 86 % Arterial Blood pH 7.38 Arterial Blood Partial 64 mmHg Pressure CO2 Arterial Blood Partial 59 mmHg Pressure O2 Arterial Blood Oxygen Content 18.8 Vol % Arterial Blood 1.4 % Carboxyhemoglobin Arterial Blood Methemoglobin 1.3 % Blood Gas Hemoglobin 15.6 G/DL Oxygen Delivery Device VENTILATOR Blood Gas Ventilator Setting ACPC20/600/1.1IT/+10 Blood Gas Inspired Oxygen 70 % Imaging Last Impressions Chest X-Ray 03/04/17 0600 Signed Impressions: Service Date/Time: Saturday, March 04, 2017 05:12 - CONCLUSION: Bibasilar areas of consolidation, atelectasis and possible effusions which are unchanged from the prior exam. Cardiomegaly. The patient is status post sternotomy and has a pacing device in place. Nick Menchaca MD CT Angiography 03/02/17 1206 Signed Impressions: Service Date/Time: Thursday, March 02, 2017 13:46 - CONCLUSION: 1. No pulmonary embolus identified. 2. Small bilateral effusions with significant dependent atelectasis bilaterally. Riley Bob MD Lower Extremity Ultrasound 02/27/17 0000 Signed Impressions: Service Date/Time: Monday, February 27, 2017 08:31 - CONCLUSION: Normal examination. Nick Farrell MD Abdomen X-Ray 02/24/17 0000 Signed Impressions: Service Date/Time: Friday, February 24, 2017 10:43 - CONCLUSION: 1. Nasogastric tube just across the GE junction. 2. Minimal nonspecific bowel gas dilatation. Artur Bob MD FACR Assessment and Plan Problem List: (1) Ischemic dilated cardiomyopathy Assessment and Plan: Respiratory failure/COPD exacerbation and acute on chronic combined CHF Continue IV diuresis Follow renal function Daily Weights Strict I&O Low sodium diet (2) CAD (coronary artery disease) (3) Hypertension (4) COPD (chronic obstructive pulmonary disease) (5) Atrial flutter (6) COPD with acute exacerbation (7) Acute respiratory failure Problem Qualifiers (1) Acute respiratory failure: Qualified Code: J96.02 - Acute respiratory failure with hypercapnia Stanley Alvarez MD Mar 04, 2017 08:14
[2017-03-04] MEDS: METOPROLOL SUCCINATE 25 MG EXTENDED RELEASE TAB PO SCH ×2 (09:00→20:52)
[2017-03-04] MEDS: BUMETANIDE INJ 1 MG/4 ML VIAL IV PUSH SCH ×2 (09:00→19:31)
[2017-03-04] MEDS: cefTRIAXone INJ 1,000 MG in SODIUM CHLORIDE 0.9% INJ 100 ML IV SCH (12:11)
[2017-03-04 12:59] LABS: BLOOD GAS CARBOXYHEMOGLOBIN 1.5 % (0-4); BLOOD GAS HCO3 35 mmol/L (22-26); BLOOD GAS METHEMOGLOBIN 1.3 % (0-2); BLOOD GAS O2 HGB SATURATION 86 % (90-100); BLOOD GAS PCO2 58 mmHg (38-42); BLOOD GAS PO2 59 mmHg (61-120); BLOOD GAS TOTAL HGB 15.8 G/DL (12.0-16.0); OXYGEN DEVICE VENTILATOR; TEMP CORR TO 98.6
[2017-03-04 13:00] LABS: DRAW SITE RT RADIAL; FIO2 80 %; NUMBER OF ARTERIAL PUNCTURES 1; STAT NO; ULNAR PULSE PRESENT; VENT SETTINGS SEE COMMENTS
[2017-03-04 13:12] LABS: BICARBONATE 38.1 MEQ/L (21.0-32.0); POTASSIUM 3.5 MEQ/L (3.5-5.1)
[2017-03-04] MEDS: LEVOFLOXACIN 500 MG PREMIX INJ 100 ML IV SCH (16:06)
[2017-03-04] MEDS: SODIUM CHLORIDE 0.9% FLUSH 10 ML FLUSH IVF PRN (20:52)
[2017-03-04] MEDS: ATORVASTATIN 40 MG TAB PO SCH (20:52)
[2017-03-05] VITALS (21 sets, daily range): BP systolic 112–126; BP diastolic 65–68; PULSE 76–103; RESP 12–24; TEMP 98–100.1; O2SAT 85–91
[2017-03-05] MEDS: RESP: ALBUTEROL 2.5 MG/IPRATROPIUM 0.5 MG NEB (SCH) NEB ×7 (00:40→23:06)
[2017-03-05] MEDS: PROPOFOL 1000 MG/100 ML INJ 100 ML IV SCH ×6 (01:10→21:12)
[2017-03-05] MEDS ORDERED: LORazepam 2 MG/ML VIAL IV ONE (01:15)
[2017-03-05] MEDS: CHLORHEXIDINE GLUCONATE 2 % 1 PACK (2 CLOTHS) TOP SCH (04:00)
[2017-03-05] MEDS: INSULIN NovoLIN REGULAR SUPPLEMENTAL SCALE SQ SCH ×4 (05:00→22:58)
[2017-03-05 05:26] LABS: BICARBONATE 34.9 MEQ/L (21.0-32.0); MAGNESIUM 2.5 MG/DL (1.5-2.5)
[2017-03-05 05:29] LABS: POTASSIUM 4.2 MEQ/L (3.5-5.1)
[2017-03-05] MEDS: HEPARIN SODIUM - SQ 10,000 UNITS/ML VIAL SQ SCH ×2 (05:53→17:44)
[2017-03-05] MEDS: FREE WATER G-TUBE SCH ×3 (05:54→21:13)
--- NOTE | 2017-03-05 06:09 | RADRPT ---
EXAM DATE/TIME: 03/05/2017 03:27 [facility] COMPARISON: CHEST SINGLE AP, March 04, 2017, 5:12. INDICATIONS : Shortness of breath, possible pulmonary disease. MEDICAL HISTORY : Hypertension. Hypercholesterolemia. Arthritis. COPD Sleep Apnea SURGICAL HISTORY : CABG. Pacemaker. ENCOUNTER: Subsequent ACUITY: 1 week PAIN SCORE: Non-responsive. LOCATION: Bilateral chest FINDINGS: A single view of the chest demonstrates cardiomegaly and previous CABG. Increased pulmonary vasculari ty and bibasilar airspace disease. The endotracheal tube and nasogastric tube unchanged. Left-sided p acemaker. The cardiomediastinal contours are unremarkable. Osseous structures are intact. CONCLUSION: 1. Cardiomegaly and previous CABG. 2. Increased pulmonary vascularity and bibasilar airspace disease. Fernando Mack MD on March 05, 2017 at 6:06 Board Certified Radiologist. This report was verified electronically.
--- NOTE | 2017-03-05 08:00 | PD.CARD.PN ---
Subjective Subjective Remarks intubated, mechanically ventilated (Dangelo Cintron) Objective Vital Signs / I&O Vital Signs Date Time Temp Pulse Resp B/P Pulse Ox O2 Delivery O2 Flow Rate FiO2 03/05/17 06:00 76 03/05/17 04:00 75 03/05/17 04:00 100.1 77 12 115/66 91 03/05/17 04:00 77 03/05/17 03:50 91 70 03/05/17 02:00 85 03/05/17 00:45 103 03/05/17 00:41 89 75 03/05/17 00:00 88 03/05/17 00:00 75 03/05/17 00:00 99.1 87 24 112/66 85 03/04/17 22:00 88 03/04/17 20:00 79 03/04/17 20:00 99.4 79 12 118/73 95 03/04/17 20:00 75 03/04/17 19:28 95 75 03/04/17 18:00 81 03/04/17 16:10 91 80 03/04/17 16:00 80 03/04/17 16:00 99.1 92 17 120/67 92 03/04/17 16:00 95 03/04/17 14:16 90 80 03/04/17 14:00 92 03/04/17 12:00 92 03/04/17 12:00 80 03/04/17 12:00 99.7 92 17 106/73 90 03/04/17 10:48 90 80 03/04/17 10:00 84 03/04/17 08:58 91 80 03/04/17 08:00 80 03/04/17 08:00 99.7 74 17 131/75 92 03/04/17 08:00 74 I/O 03/04/17 03/04/17 03/04/17 03/05/17 03/05/17 03/05/17 07:00 15:00 23:00 07:00 15:00 23:00 Intake Total 974 ml 1200 ml 976 ml 1050 ml Output Total 1075 ml 1600 ml 900 ml 900 ml Balance -101 ml -400 ml 76 ml 150 ml IV Total 360 ml 500 ml 375 ml 390 ml Tube Feeding 364 ml 450 ml 351 ml 410 ml Other 250 ml 250 ml 250 ml 250 ml Output Urine Total 1075 ml 1600 ml 900 ml 900 ml # Bowel Movements 1 0 0 Physical Exam GENERAL: in no apparent distress. NECK: No JVD. No carotid bruit. CARDIOVASCULAR: Regular rate and rhythm. S1/S2 no murmur, rub, or gallop. RESPIRATORY: . diminished to auscultation. Breath sounds equal bilaterally. GASTROINTESTINAL: Abdomen soft, non-tender, nondistended. MUSCULOSKELETAL: edema. Laboratory Laboratory Tests Test 03/04/17 03/04/17 03/05/17 12:05 12:30 03:29 Blood Gas Puncture Site RT RADIAL Blood Gas Patient Temperature 98.6 Blood Gas HCO3 35 mmol/L Blood Gas Base Excess 10.0 mmol/L Blood Gas Oxygen Saturation 86 % Arterial Blood pH 7.40 Arterial Blood Partial 58 mmHg Pressure CO2 Arterial Blood Partial 59 mmHg Pressure O2 Arterial Blood Oxygen Content 19.0 Vol % Arterial Blood 1.5 % Carboxyhemoglobin Arterial Blood Methemoglobin 1.3 % Blood Gas Hemoglobin 15.8 G/DL Oxygen Delivery Device VENTILATOR Blood Gas Ventilator Setting SEE COMMENTS Blood Gas Inspired Oxygen 80 % Sodium Level 146 MEQ/L 148 MEQ/L Potassium Level 3.5 MEQ/L 4.2 MEQ/L Chloride Level 103 MEQ/L 107 MEQ/L Carbon Dioxide Level 38.1 MEQ/L 34.9 MEQ/L Anion Gap 5 MEQ/L 6 MEQ/L Blood Urea Nitrogen 36 MG/DL 36 MG/DL Creatinine 0.93 MG/DL 0.74 MG/DL Estimat Glomerular Filtration 81 ML/MIN 105 ML/MIN Rate Random Glucose 127 MG/DL 113 MG/DL Calcium Level 9.3 MG/DL 8.7 MG/DL Phosphorus Level 3.3 MG/DL Magnesium Level 2.5 MG/DL (Dangelo Cintron) Assessment and Plan Problem List: (1) Ischemic dilated cardiomyopathy (2) CAD (coronary artery disease) (3) Hypertension (4) COPD (chronic obstructive pulmonary disease) (5) Atrial flutter (6) COPD with acute exacerbation (7) Acute respiratory failure Assessment and Plan respiratory failure - multifactorial. Intubated FiO2 75%. being treated for COPD exacerbation. 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 Last cath 2011. Cardiomyopathy - outpatient EF 25% chronically. Inpatient echo EF 45%. AICD in place. afib CHADS VASC2 = 4. patient was not interested in anticoagulation. acute on chronic systolic and diastolic CHF - continue Bumex 1 mg BID. Continued good diuresis. Cr remains normal. CTA negative for PE troponin negative x 2. unlikely ACS. (Dangelo Cintron) Assessment and Plan still intubated. FiO2 60-70%. I/O slightly negative. Weight relatively unchanged past few days. on Bumex BID. Cr stable. CXR showing worsened interstitial edema. add metolazone BID. monitor Cr. closely. multifactorial - acute on chronic CHF, PNA, COPD exacerbation. (Slade Cole MD) Problem Qualifiers (1) Acute respiratory failure: Qualified Code: J96.02 - Acute respiratory failure with hypercapnia Dangelo Cintron Mar 05, 2017 08:00 Slade Cole MD Mar 05, 2017 14:52
[2017-03-05 08:39] LABS: AUTOMATED NEUTROPHIL # 7.5 TH/MM3 (1.8-7.7); BASOPHIL % 0.5 % (0.0-2.0); EOSINOPHIL % 0.3 % (0.0-4.0); HEMATOCRIT 47.2 % (39.0-51.0); LYMPHOCYTE # 0.4 TH/MM3 (1.0-4.8); MEAN CELL VOLUME 95.3 FL (80.0-100.0); MEAN CORPUSCULAR HEMOGLOBIN 30.1 PG (27.0-34.0); MEAN CORPUSCULAR HGB CONC 31.6 % (32.0-36.0); MONO % 14.3 % (0.0-8.0); NEUT % 80.9 % (16.0-70.0); PLATELET COUNT 136 TH/MM3 (150-450); RED BLOOD COUNT 4.96 MIL/MM3 (4.50-5.90); RED CELL DISTRIBUTION WIDTH 16.3 % (11.6-17.2); WHITE BLOOD COUNT 9.2 TH/MM3 (4.0-11.0)
[2017-03-05 08:41] LABS: HEMO FLAGS AUTO DIFF
[2017-03-05] MEDS: METOPROLOL SUCCINATE 25 MG EXTENDED RELEASE TAB PO SCH ×2 (09:00→21:00)
[2017-03-05 09:30] LABS: BANDS 3 % (0-6); MYELOCYTES 1 % (0-0); NEUTROPHIL # MANUAL DIFF 7.4 TH/MM3 (1.8-7.7); POLYS (SEG NEUTROPHILS) 76 % (16-70); WBC DIFF SAMPLE 100
[2017-03-05 09:31] LABS: PLATELET ESTIMATE SMEAR LOW (NORMAL); PLATELET MORPHOLOGY NORMAL (NORMAL)
[2017-03-05 09:32] LABS: SCAN/DIFF FINAL DIFF MANUAL
[2017-03-05] MEDS: BUMETANIDE INJ 1 MG/4 ML VIAL IV PUSH SCH ×2 (10:06→17:47)
[2017-03-05] MEDS: methylPREDNISolone SOD SUCC 40 MG/1 ML VIAL IV PUSH SCH ×2 (10:06→21:13)
[2017-03-05] MEDS: PANTOPRAZOLE SODIUM 40 MG VIAL IV SCH (10:06)
[2017-03-05] MEDS: DOCUSATE SODIUM 100 MG/10 ML UDC PO SCH ×2 (10:07→21:13)
[2017-03-05] MEDS: SENNOSIDES SYRUP 8.8 MG/5 ML CUP PO SCH (10:07)
[2017-03-05] MEDS: LACTULOSE SYRUP 20 GM/30 ML CUP PO SCH ×2 (10:07→21:13)
[2017-03-05] MEDS: CLOPIDOGREL 75 MG TAB PO SCH (10:07)
[2017-03-05] MEDS: ASPIRIN 325 MG TAB PO SCH (10:08)
[2017-03-05] MEDS: cefTRIAXone INJ 1,000 MG in SODIUM CHLORIDE 0.9% INJ 100 ML IV SCH (13:40)
[2017-03-05] MEDS: fentaNYL DRIP 250 ML IV SCH (14:49)
--- NOTE | 2017-03-05 15:34 | HHI.CCPN ---
Subjective Remarks/Hospital Course The patient is a 66-year-old male with past medical history of COPD, cardiomyopathy, hypertension, gastroesophageal reflux disease, hyperlipidemia and coronary artery disease. The patient presented to [facility] ED with a 2-week history of progressive worsening shortness of breath. On arrival to the ED he was initially placed on a non-rebreather mask and ABG was performed which showed acute hypercapnic respiratory failure with a pH of 7.14, CO2 121, pAO2 141, bicarb 40, sats 93%. His laboratory data significant for hyperkalemia with potassium level 6.0 and acute renal failure with a BUN of 43 and creatinine 2.07 respectively. The chest x-ray showed cardiomegaly and findings of vascular congestion without overt failure. In the ED the patient was intubated with etomidate and rocuronium and placed on full mechanical ventilation. In addition, he is scheduled to receive 10 units IV regular insulin, 1 amp of D50 and calcium gluconate for hyperkalemia. He received cefepime, azithromycin, Solu-Medrol 125 milligrams IV push and bronchodilator treatment. When seen the patient is on Diprivan infusion for sedation and full mechanical ventilation. Per the patient is not on any oxygen at home and he occasionally smokes cigarettes. 02/24 Patient is intubated and sedated with Diprivan and Fentanyl. Switched to PC/ AC with RR 12, IP:24, IT:1.06, PEEP: 8 and FIO2 100%. CXR this morning showed interval development of bilateral perihilar and lower lung zone airspace opacity he was given Lasix 60mg total overnight. 02/25 Patient remains sedated and intubated with Diprivan and Fentanyl. Afebrile.On PC/AC with RR 12, IP:22, IT:1.10, PEEP:10, FIO2 70%. Afebrile. Renal function worse today with Cr: 1.90 from 1.72 UO: 1150ml in 24 hrs 02/26 No acute events overnight. Sedated with Fentanyl and Diprivan and intubated. Afebrile. His O2 requirements is less now on PC/AC with IP:22, IT: 1.1 with PEEP: 10 and FIO2 55%. Renal function improving with Cr: 1.42 today from 1.90. Tolerating tube feeds. 02/27 Patient remains sedated with Diprivan and Fentanyl infusion and intubated. Afebrile. 02/28: Remains sedated, orally intubated on mechanical ventilation. Being diuresed with Bumex. Tolerating tube feeds. 6: Remains sedated, orally intubated on mechanical ventilation. Being diabetes. Remains on PEEP of 10 and FiO2 60% 03/02 Patient remains sedated with Diprivan and Fentanyl and intubated. On PC/AC with PEEP: 10 and FIO2 80% overnight and sats 93-94%. Afebrile. 03/03: The patient remains on high respiratory requirements PEEP of 10, and FiO2 70%. 03/04: Tmax 99.9. Overnight the patient was noted to have desaturations the patient received a bolus of midazolam and fentanyl for ventilator dyssynchrony. The patient was redosed with Diamox with approximately 2.5 L diuresis in the last 12 hours. The patient continues on an FiO2 of 70% with PEEP of 10 to maintain an O2 sat of 90%. 03/05: Afebrile. Patient's FiO2 remains at 60% to maintain O2sat ranging in 92% . Future plans for tracheostomy discussed with when ventilator requirements are decreased. Patient currently is on a PEEP of 10. Patient receiving multiple doses of diuretics chest x-ray still showing increased vascular congestion. Cardiology following metalazone added to medication regimen per cardiology for diuresis. Objective Vital Signs Date Time Temp Pulse Resp B/P Pulse Ox O2 Delivery O2 Flow Rate FiO2 03/05/17 12:59 90 60 03/05/17 12:00 98.2 86 21 124/66 Intake and Output 03/04/17 03/04/17 03/05/17 08:00 16:00 00:00 Intake Total 974 ml 1200 ml 976 ml Output Total 1075 ml 1600 ml 900 ml Balance -101 ml -400 ml 76 ml Result Diagram: 03/05/17 0830 03/05/17 0329 Imaging Last Impressions Chest X-Ray 02/28/17 0600 Signed Impressions: Service Date/Time: Tuesday, February 28, 2017 03:29 - CONCLUSION: No change in the pulmonary edema. Garrick Hinton Jr., MD Lower Extremity Ultrasound 02/27/17 0000 Signed Impressions: Service Date/Time: Monday, February 27, 2017 08:31 - CONCLUSION: Normal examination. Nick Farrell MD Abdomen X-Ray 02/24/17 0000 Signed Impressions: Service Date/Time: Friday, February 24, 2017 10:43 - CONCLUSION: 1. Nasogastric tube just across the GE junction. 2. Minimal nonspecific bowel gas dilatation. Artur Bob MD FACR Objective Remarks GENERAL: Patient is 66 yo intubated and sedated. SKIN: Warm and dry. HEAD: Normocephalic. EYES: No scleral icterus. No injection or drainage. NECK: Supple, trachea midline. No JVD or lymphadenopathy. CARDIOVASCULAR: Regular rate and rhythm without murmurs, gallops, or rubs. RESPIRATORY: On mechanical ventilation, orally intubated, Breath sounds equal bilaterally. Coarse BS GASTROINTESTINAL: Abdomen soft, non-tender, nondistended. OGT, tube feedings infusing MUSCULOSKELETAL: 2+ bilateral edema in upper extremities. Neuro: Sedated, orally intubated on propofol and fentanyl infusions. Urinary Catheter: Yes [facility] insert reason: ICU Pt Getting Diuretics Assessment to: Remove Date of Removal: Mar 04, 2017 Line: Central Venous Catheter Side: Right A/P Assessment and Plan 1. Acute hypercapnic and hypoxemic respiratory failure. 2. COPD exacerbation. 3. Acute renal failure. 4. Hyperkalemia. 5. Obstructive sleep apnea and morbid obesity. 6. Ischemic dilated Cardiomyopathy. S/P AICD 03/2015 7. History of coronary artery disease. 8. Gastroesophageal reflux disease. 9. Hypertension. 10. Hyperlipidemia. 11 Pulm edema 12. Acute on chronic systolic and diastolic CHF Plan: Neuro: On Diprivan and Fentanyl infusion for sedation. Daily sedation vacation when appropriate. Ventilator settings currently are elevated unable to perform sedation vacation. CV: Monitor HR 90's-100, will resume home med metoprolol at lower dose BP keep MAP>65mmHg On aspirin 325 milligrams p.o. daily and Plavix 75 mg p.o. daily. 01/2017 Echo showed EF 40-45%, nl LV diastolic function, No RWMA Cardiology following Pulm: On PC/AC RR 12, IP:22, IT:1.1 PEEP: 10, FIO2: 60%, decrease FIO2 as kristie Continue with vent support and maintain sats above 92%. CXR-bilateral consolidation in bases, atelectasis, possible effusions Bronchodilators every 4 hours, Solu-Medrol 40 mg IV BID. Pulm-Dr. Lashell Padron following CTA chest showed no PE, small pleural effusions ETT, day 10-plan for tracheostomy in near future, when ventilatory requirements are decreased, with PEEP less than 10 : Monitor renal function Is and Os and avoid nephrotoxins. Electrolytes replacement per protocol.. On Bumex 1mg BID, place on Free water 250ml Q8, monitor sodium level. 03/05 Metalazone begun per cardiology GI: On Protonix 40 milligrams IV daily for GI prophylaxis. On TF- Glucerna 1.5 @45ml/hr, no residual Senna, Colace for bowel regimen, Lactulose 15mg BID, last BM 03/04 02/24 KUB abdomen: Minimal non-specific bowel gas dilatation ID: continue with empiric abx(Levaquin (day 2), Rocephin(day 6) and monitor for signs of infections( fever and WBC) Follow up on sputum [id number] Heme: Monitor CBC. Endo: SSI with Accu-Chek q. 6-hour for glycemic control. GI prophylaxis with Protonix 40 mg daily and DVT prophylaxis with SCDs and heparin SQ Doppler US LE no DVT Dispo: Discussed patient with PRINT PROJECT MANAGER and the patient's , brother at bedside. Discussed current status, family requests aggressive measures tracheostomy and PEG placement plan for near future. This patient remains critically ill with one or more organ systems which are or may become a threat to life. I have spent in excess of 32 minutes discontinuously in the care and management of this patient. This time is exclusive of procedures, and includes, but is not limited to, evaluation of the patient, review of the medical record, discussions with family, consultants, nursing staff, or respiratory therapy, and documentation in the medical record. Physician Rolanda Maria MD Mar 05, 2017 15:34
[2017-03-05 16:16] LABS: BLOOD GAS BASE EXCESS 9.2 mmol/L (-2-2); BLOOD GAS CARBOXYHEMOGLOBIN 1.5 % (0-4); BLOOD GAS HCO3 34 mmol/L (22-26); BLOOD GAS METHEMOGLOBIN 1.3 % (0-2); BLOOD GAS O2 HGB SATURATION 86 % (90-100); BLOOD GAS PCO2 59 mmHg (38-42); BLOOD GAS PO2 61 mmHg (61-120); BLOOD GAS TOTAL HGB 15.8 G/DL (12.0-16.0); CRITICAL VALUE YES; OXYGEN DEVICE VENTILATOR; TEMP CORR TO 98.6
[2017-03-05 16:17] LABS: DRAW SITE RT RADIAL; FIO2 60 %; NUMBER OF ARTERIAL PUNCTURES 1; STAT NO; ULNAR PULSE PRESENT; VENT SETTINGS PC/AC RATE 12
[2017-03-05] MEDS: LEVOFLOXACIN 500 MG PREMIX INJ 100 ML IV SCH (17:43)
[2017-03-05] MEDS: METOLAZONE 5 MG TAB PO SCH (17:44)
[2017-03-05] MEDS: ATORVASTATIN 40 MG TAB PO SCH (21:13)
[2017-03-06] VITALS (19 sets, daily range): BP systolic 115–135; BP diastolic 64–76; PULSE 70–98; RESP 12–14; TEMP 98.5–99.2; O2SAT 88–95
[2017-03-06] MEDS: PROPOFOL 1000 MG/100 ML INJ 100 ML IV SCH ×9 (00:43→22:42)
[2017-03-06] MEDS: RESP: ALBUTEROL 2.5 MG/IPRATROPIUM 0.5 MG NEB (SCH) NEB ×6 (03:00→23:13)
[2017-03-06] MEDS: CHLORHEXIDINE GLUCONATE 2 % 1 PACK (2 CLOTHS) TOP SCH (04:00)
[2017-03-06] MEDS: INSULIN NovoLIN REGULAR SUPPLEMENTAL SCALE SQ SCH ×4 (05:00→22:43)
[2017-03-06 05:16] LABS: BLOOD GAS BASE EXCESS 10.6 mmol/L (-2-2); BLOOD GAS CARBOXYHEMOGLOBIN 1.4 % (0-4); BLOOD GAS HCO3 36 mmol/L (22-26); BLOOD GAS METHEMOGLOBIN 1.3 % (0-2); BLOOD GAS O2 HGB SATURATION 89 % (90-100); BLOOD GAS OXYGEN CONTENT 19.6 Vol % (12.0-20.0); BLOOD GAS PCO2 57 mmHg (38-42); BLOOD GAS PO2 65 mmHg (61-120); BLOOD GAS TOTAL HGB 15.7 G/DL (12.0-16.0); TEMP CORR TO 98.6
[2017-03-06 05:17] LABS: CRITICAL VALUE YES; OXYGEN DEVICE VENTILATOR
[2017-03-06 05:18] LABS: DRAW SITE LT RADIAL; FIO2 90 %; NUMBER OF ARTERIAL PUNCTURES 1; STAT NO; ULNAR PULSE PRESENT; VENT SETTINGS PC/AC
--- NOTE | 2017-03-06 05:25 | RADRPT ---
EXAM DATE/TIME: 03/06/2017 03:58 [facility] COMPARISON: CHEST SINGLE AP, March 05, 2017, 3:27. INDICATIONS : Respiratory distress. MEDICAL HISTORY : Hypertension. Hypercholesterolemia. Arthritis. COPD. SURGICAL HISTORY : CABG. Pacemaker. ENCOUNTER: Subsequent ACUITY: 1 week PAIN SCORE: Non-responsive. LOCATION: Bilateral chest FINDINGS: A single view of the chest demonstrates bibasilar consolidation and small bilateral pleural effusions . Cardiomegaly and previous CABG. Left-sided defibrillator again noted. Pulmonary arteries are promin ent. The cardiomediastinal contours are unremarkable. Osseous structures are intact. CONCLUSION: 1. Cardiomegaly with bibasilar consolidation and small pleural effusions. 2. Enlargement of the pulmonary arteries consistent with pulmonary arterial hypertension. Fernando Mack MD on March 06, 2017 at 5:21 Board Certified Radiologist. This report was verified electronically.
[2017-03-06] MEDS: HEPARIN SODIUM - SQ 10,000 UNITS/ML VIAL SQ SCH ×2 (05:39→18:06)
[2017-03-06] MEDS: FREE WATER G-TUBE SCH ×3 (05:40→22:00)
[2017-03-06 05:50] LABS: HEMATOCRIT 50.1 % (39.0-51.0); MEAN CELL VOLUME 95.6 FL (80.0-100.0); MEAN CORPUSCULAR HGB CONC 31.4 % (32.0-36.0); PLATELET COUNT 138 TH/MM3 (150-450); RED BLOOD COUNT 5.24 MIL/MM3 (4.50-5.90); RED CELL DISTRIBUTION WIDTH 15.7 % (11.6-17.2); REVIEW FLAG FINAL; WHITE BLOOD COUNT 9.9 TH/MM3 (4.0-11.0)
[2017-03-06] MEDS: fentaNYL DRIP 250 ML IV SCH ×2 (06:09→18:05)
[2017-03-06 06:18] LABS: BICARBONATE 37.9 MEQ/L (21.0-32.0); MAGNESIUM 2.6 MG/DL (1.5-2.5); POTASSIUM 3.6 MEQ/L (3.5-5.1)
--- NOTE | 2017-03-06 08:00 | PD.CARD.PN ---
Subjective Subjective Remarks intubated, mechanically ventilated Objective Vital Signs / I&O Vital Signs Date Time Temp Pulse Resp B/P Pulse Ox O2 Delivery O2 Flow Rate FiO2 03/06/17 06:00 71 03/06/17 04:04 88 90 03/06/17 04:00 71 03/06/17 04:00 98.7 71 12 122/76 88 03/06/17 04:00 90 03/06/17 02:00 71 03/06/17 01:01 88 90 03/06/17 00:00 80 03/06/17 00:00 90 03/06/17 00:00 98.9 80 12 115/64 90 03/05/17 23:06 90 90 03/05/17 22:10 90 100 03/05/17 22:00 86 03/05/17 20:00 100 03/05/17 20:00 85 03/05/17 20:00 98.6 85 13 126/65 90 03/05/17 19:20 90 100 03/05/17 18:04 83 03/05/17 16:00 82 03/05/17 16:00 98.4 82 18 126/65 89 03/05/17 15:54 91 60 03/05/17 14:02 80 03/05/17 12:59 90 60 03/05/17 12:00 98.2 86 21 124/66 91 03/05/17 12:00 78 03/05/17 10:10 82 03/05/17 08:00 78 03/05/17 08:00 98.0 82 21 122/68 91 03/05/17 07:54 91 60 I/O 03/05/17 03/05/17 03/05/17 03/06/17 03/06/17 03/06/17 07:00 15:00 23:00 07:00 15:00 23:00 Intake Total 1050 ml 1092 ml 828 ml 927 ml Output Total 900 ml 1150 ml 1600 ml 800 ml Balance 150 ml -58 ml -772 ml 127 ml Intake Oral 0 ml IV Total 390 ml 360 ml 360 ml 332 ml Tube Feeding 410 ml 382 ml 408 ml 345 ml Tube Irrigant 60 ml Other 250 ml 350 ml 250 ml Output Urine Total 900 ml 1150 ml 1600 ml 800 ml Stool Total 0 ml # Bowel Movements 0 0 Physical Exam GENERAL: in no apparent distress. NECK: No JVD. No carotid bruit. CARDIOVASCULAR: Regular rate and rhythm. S1/S2 no murmur, rub, or gallop. RESPIRATORY: . diminished to auscultation. Breath sounds equal bilaterally. GASTROINTESTINAL: Abdomen soft, non-tender, nondistended. MUSCULOSKELETAL: edema. Laboratory Laboratory Tests Test 03/05/17 03/05/17 03/06/17 03/06/17 08:30 16:09 04:44 05:06 White Blood Count 9.2 TH/MM3 9.9 TH/MM3 Red Blood Count 4.96 MIL/MM3 5.24 MIL/MM3 Hemoglobin 14.9 GM/DL 15.7 GM/DL Hematocrit 47.2 % 50.1 % Mean Corpuscular Volume 95.3 FL 95.6 FL Mean Corpuscular Hemoglobin 30.1 PG 30.0 PG Mean Corpuscular Hemoglobin 31.6 % 31.4 % Concent Red Cell Distribution Width 16.3 % 15.7 % Platelet Count 136 TH/MM3 138 TH/MM3 Mean Platelet Volume 9.2 FL 9.5 FL Neutrophils (%) (Auto) 80.9 % Lymphocytes (%) (Auto) 4.0 % Monocytes (%) (Auto) 14.3 % Eosinophils (%) (Auto) 0.3 % Basophils (%) (Auto) 0.5 % Neutrophils # (Auto) 7.5 TH/MM3 Lymphocytes # (Auto) 0.4 TH/MM3 Monocytes # (Auto) 1.3 TH/MM3 Eosinophils # (Auto) 0.0 TH/MM3 Basophils # (Auto) 0.0 TH/MM3 CBC Comment AUTO DIFF Differential Total Cells 100 Counted Neutrophils % (Manual) 76 % Band Neutrophils % 3 % Lymphocytes % 5 % Monocytes % 15 % Neutrophils # (Manual) 7.4 TH/MM3 Myelocytes 1 % Differential Comment FINAL DIFF MANUAL Platelet Estimate LOW Platelet Morphology Comment NORMAL Blood Gas Puncture Site RT RADIAL LT RADIAL Blood Gas Patient Temperature 98.6 98.6 Blood Gas HCO3 34 mmol/L 36 mmol/L Blood Gas Base Excess 9.2 mmol/L 10.6 mmol/L Blood Gas Oxygen Saturation 86 % 89 % Arterial Blood pH 7.39 7.42 Arterial Blood Partial 59 mmHg 57 mmHg Pressure CO2 Arterial Blood Partial 61 mmHg 65 mmHg Pressure O2 Arterial Blood Oxygen Content 19.0 Vol % 19.6 Vol % Arterial Blood 1.5 % 1.4 % Carboxyhemoglobin Arterial Blood Methemoglobin 1.3 % 1.3 % Blood Gas Hemoglobin 15.8 G/DL 15.7 G/DL Oxygen Delivery Device VENTILATOR VENTILATOR Blood Gas Ventilator Setting PC/AC RATE 12 PC/AC Blood Gas Inspired Oxygen 60 % 90 % Sodium Level 145 MEQ/L Potassium Level 3.6 MEQ/L Chloride Level 101 MEQ/L Carbon Dioxide Level 37.9 MEQ/L Anion Gap 6 MEQ/L Blood Urea Nitrogen 37 MG/DL Creatinine 0.77 MG/DL Estimat Glomerular Filtration 100 ML/MIN Rate Random Glucose 125 MG/DL Calcium Level 9.7 MG/DL Phosphorus Level 3.1 MG/DL Magnesium Level 2.6 MG/DL Assessment and Plan Problem List: (1) Ischemic dilated cardiomyopathy (2) CAD (coronary artery disease) (3) Hypertension (4) COPD (chronic obstructive pulmonary disease) (5) Atrial flutter (6) COPD with acute exacerbation (7) Acute respiratory failure Assessment and Plan respiratory failure - multifactorial. Intubated FiO2 90%. being treated for COPD exacerbation. 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 Last cath 2011. Cardiomyopathy - outpatient EF 25% chronically. Inpatient echo EF 45%. AICD in place. afib CHADS VASC2 = 4. patient was not interested in anticoagulation. acute on chronic systolic and diastolic CHF - continue Bumex 1 mg BID and metolazone 5 mg BID and. Continued good diuresis. Cr remains normal. Upon my comparison of today and yesterday's chest x-ray I do not see any significant change. Problem Qualifiers (1) Acute respiratory failure: Qualified Code: J96.02 - Acute respiratory failure with hypercapnia Dangelo Cintron Mar 06, 2017 08:00
[2017-03-06] MEDS: METOPROLOL SUCCINATE 25 MG EXTENDED RELEASE TAB PO SCH ×2 (09:00→21:00)
[2017-03-06] MEDS: METOLAZONE 5 MG TAB PO SCH ×2 (10:11→18:07)
[2017-03-06] MEDS: DOCUSATE SODIUM 100 MG/10 ML UDC PO SCH ×2 (10:12→22:42)
[2017-03-06] MEDS: SENNOSIDES SYRUP 8.8 MG/5 ML CUP PO SCH (10:12)
[2017-03-06] MEDS: CLOPIDOGREL 75 MG TAB PO SCH (10:12)
[2017-03-06] MEDS: LACTULOSE SYRUP 20 GM/30 ML CUP PO SCH ×2 (10:12→22:42)
[2017-03-06] MEDS: ASPIRIN 325 MG TAB PO SCH (10:12)
[2017-03-06] MEDS: methylPREDNISolone SOD SUCC 40 MG/1 ML VIAL IV PUSH SCH ×2 (10:13→22:41)
[2017-03-06] MEDS: PANTOPRAZOLE SODIUM 40 MG VIAL IV SCH (10:13)
[2017-03-06] MEDS: BUMETANIDE INJ 1 MG/4 ML VIAL IV PUSH SCH ×2 (10:13→18:06)
[2017-03-06] MEDS: cefTRIAXone INJ 1,000 MG in SODIUM CHLORIDE 0.9% INJ 100 ML IV SCH (14:02)
--- NOTE | 2017-03-06 14:43 | HHI.CCPN ---
Subjective Remarks/Hospital Course The patient is a 66-year-old male with past medical history of COPD, cardiomyopathy, hypertension, gastroesophageal reflux disease, hyperlipidemia and coronary artery disease. The patient presented to [facility] ED with a 2-week history of progressive worsening shortness of breath. On arrival to the ED he was initially placed on a non-rebreather mask and ABG was performed which showed acute hypercapnic respiratory failure with a pH of 7.14, CO2 121, pAO2 141, bicarb 40, sats 93%. His laboratory data significant for hyperkalemia with potassium level 6.0 and acute renal failure with a BUN of 43 and creatinine 2.07 respectively. The chest x-ray showed cardiomegaly and findings of vascular congestion without overt failure. In the ED the patient was intubated with etomidate and rocuronium and placed on full mechanical ventilation. In addition, he is scheduled to receive 10 units IV regular insulin, 1 amp of D50 and calcium gluconate for hyperkalemia. He received cefepime, azithromycin, Solu-Medrol 125 milligrams IV push and bronchodilator treatment. When seen the patient is on Diprivan infusion for sedation and full mechanical ventilation. Per the patient is not on any oxygen at home and he occasionally smokes cigarettes. 02/24 Patient is intubated and sedated with Diprivan and Fentanyl. Switched to PC/ AC with RR 12, IP:24, IT:1.06, PEEP: 8 and FIO2 100%. CXR this morning showed interval development of bilateral perihilar and lower lung zone airspace opacity he was given Lasix 60mg total overnight. 02/25 Patient remains sedated and intubated with Diprivan and Fentanyl. Afebrile.On PC/AC with RR 12, IP:22, IT:1.10, PEEP:10, FIO2 70%. Afebrile. Renal function worse today with Cr: 1.90 from 1.72 UO: 1150ml in 24 hrs 02/26 No acute events overnight. Sedated with Fentanyl and Diprivan and intubated. Afebrile. His O2 requirements is less now on PC/AC with IP:22, IT: 1.1 with PEEP: 10 and FIO2 55%. Renal function improving with Cr: 1.42 today from 1.90. Tolerating tube feeds. 02/27 Patient remains sedated with Diprivan and Fentanyl infusion and intubated. Afebrile. 02/28: Remains sedated, orally intubated on mechanical ventilation. Being diuresed with Bumex. Tolerating tube feeds. 03/01: Remains sedated, orally intubated on mechanical ventilation. Being diabetes. Remains on PEEP of 10 and FiO2 60% 03/02 Patient remains sedated with Diprivan and Fentanyl and intubated. On PC/AC with PEEP: 10 and FIO2 80% overnight and sats 93-94%. Afebrile. 03/03: The patient remains on high respiratory requirements PEEP of 10, and FiO2 70%. 03/04: Tmax 99.9. Overnight the patient was noted to have desaturations the patient received a bolus of midazolam and fentanyl for ventilator dyssynchrony. The patient was redosed with Diamox with approximately 2.5 L diuresis in the last 12 hours. The patient continues on an FiO2 of 70% with PEEP of 10 to maintain an O2 sat of 90%. 03/05: Afebrile. Patient's FiO2 remains at 60% to maintain O2sat ranging in 92% . Future plans for tracheostomy discussed with when ventilator requirements are decreased. Patient currently is on a PEEP of 10. Patient receiving multiple doses of diuretics chest x-ray still showing increased vascular congestion. Cardiology following metalazone added to medication regimen per cardiology for diuresis. 03/06: Patient's O2 requirements were increased overnight to FiO2 of 90%. The patient's FiO2 has been decreased now currently to 70% O2 sat is 90% ABG is pending. The patient's diuresis effective, 1 kg weight loss in 24 hours. Objective Vital Signs Date Time Temp Pulse Resp B/P Pulse Ox O2 Delivery O2 Flow Rate FiO2 03/06/17 12:26 90 70 03/06/17 12:00 98.8 70 13 126/71 Intake and Output 03/05/17 03/05/17 03/06/17 08:00 16:00 00:00 Intake Total 1050 ml 1092 ml 828 ml Output Total 900 ml 1150 ml 1600 ml Balance 150 ml -58 ml -772 ml Result Diagram: 03/06/17 0444 03/06/17 0444 Other Results Laboratory Tests Test 03/05/17 03/06/17 16:09 05:06 Blood Gas Puncture Site RT RADIAL LT RADIAL Blood Gas Patient Temperature 98.6 98.6 Blood Gas HCO3 34 mmol/L 36 mmol/L (22-26) (22-26) Blood Gas Base Excess 9.2 mmol/L 10.6 mmol/L (-2-2) (-2-2) Blood Gas Oxygen Saturation 86 % (90-100) 89 % (90-100) Arterial Blood pH 7.39 7.42 (7.380-7.420) (7.380-7.420) Arterial Blood Partial 59 mmHg (38-42) 57 mmHg (38-42) Pressure CO2 Arterial Blood Partial 61 mmHg 65 mmHg Pressure O2 (61-120) (61-120) Arterial Blood Oxygen Content 19.0 Vol % 19.6 Vol % (12.0-20.0) (12.0-20.0) Arterial Blood 1.5 % (0-4) 1.4 % (0-4) Carboxyhemoglobin Arterial Blood Methemoglobin 1.3 % (0-2) 1.3 % (0-2) Blood Gas Hemoglobin 15.8 G/DL 15.7 G/DL (12.0-16.0) (12.0-16.0) Oxygen Delivery Device VENTILATOR VENTILATOR Blood Gas Ventilator Setting PC/AC RATE 12 PC/AC Blood Gas Inspired Oxygen 60 % 90 % Imaging Last Impressions Chest X-Ray 02/28/17 0600 Signed Impressions: Service Date/Time: Tuesday, February 28, 2017 03:29 - CONCLUSION: No change in the pulmonary edema. Garrick Hinton Jr., MD Lower Extremity Ultrasound 02/27/17 0000 Signed Impressions: Service Date/Time: Monday, February 27, 2017 08:31 - CONCLUSION: Normal examination. Nick Farrell MD Abdomen X-Ray 02/24/17 0000 Signed Impressions: Service Date/Time: Friday, February 24, 2017 10:43 - CONCLUSION: 1. Nasogastric tube just across the GE junction. 2. Minimal nonspecific bowel gas dilatation. Artur Bob MD FACR Objective Remarks GENERAL: Patient is 66 yo intubated and sedated. SKIN: Warm and dry. HEAD: Normocephalic. EYES: No scleral icterus. No injection or drainage. NECK: Supple, trachea midline. No JVD or lymphadenopathy. Patient has multiple carious sharp teeth, noted small laceration of tongue, not currently bleeding. Gauze bite block in situ. CARDIOVASCULAR: Regular rate and rhythm without murmurs, gallops, or rubs. RESPIRATORY: On mechanical ventilation, orally intubated, Breath sounds equal bilaterally. Coarse BS GASTROINTESTINAL: Abdomen soft, non-tender, nondistended. OGT, tube feedings infusing MUSCULOSKELETAL: 2+ bilateral edema in upper extremities. Neuro: Sedated, orally intubated on propofol and fentanyl infusions Urinary Catheter: Yes [facility] insert reason: ICU Pt Getting Diuretics Date of Removal: Mar 04, 2017 Line: Central Venous Catheter Side: Right A/P Assessment and Plan 1. Acute hypercapnic and hypoxemic respiratory failure. 2. COPD exacerbation. 3. Acute renal failure. 4. Hyperkalemia. 5. Obstructive sleep apnea and morbid obesity. 6. Ischemic dilated Cardiomyopathy. S/P AICD 03/2015 7. History of coronary artery disease. 8. Gastroesophageal reflux disease. 9. Hypertension. 10. Hyperlipidemia. 11 Pulm edema 12. Acute on chronic systolic and diastolic CHF 13. Pulmonary hypertension Plan: Neuro: On Diprivan and Fentanyl infusion for sedation. Daily sedation vacation when appropriate. Ventilator settings currently are elevated, PEEP 10 unable to perform sedation vacation. CV: Metoprolol XL changed to Lopressor BP keep MAP>65mmHg On aspirin 325 milligrams p.o. daily and Plavix 75 mg p.o. daily. 01/2017 Echo showed EF 40-45%, nl LV diastolic function, No RWMA Cardiology following Pulm: On PC/AC RR 12, IP:22, IT:1.1 PEEP: 10, FIO2: 60%, decrease FIO2 as kristie Continue with vent support and maintain sats above 92%. CXR-bilateral consolidation in bases, atelectasis, possible effusions Bronchodilators every 4 hours, Solu-Medrol 40 mg IV BID. Pulm-Dr. Lashell Padron following CTA chest showed no PE, small pleural effusions ETT, day 10-plan for tracheostomy in near future, when ventilatory requirements are decreased, with PEEP less than 10 : Monitor renal function Is and Os and avoid nephrotoxins. Electrolytes replacement per protocol.. On Bumex 1mg BID, place on Free water 250ml Q8, monitor sodium level. 03/05 Metalazone begun per cardiology GI: On Protonix 40 milligrams IV daily for GI prophylaxis. On TF- Glucerna 1.5 @45ml/hr, no residual Senna, Colace for bowel regimen, Lactulose 15mg BID, last BM 03/04 02/24 KUB abdomen: Minimal non-specific bowel gas dilatation ID: continue with empiric abx(Levaquin (day 3), Rocephin(day 9) and monitor for signs of infections( fever and WBC) Follow up on sputum [id number] Heme: Monitor CBC. Endo: SSI with Accu-Chek q. 6-hour for glycemic control. GI prophylaxis with Protonix 40 mg daily and DVT prophylaxis with SCDs and heparin SQ Doppler US LE no DVT Dispo: Discussed patient with DIGITAL PRINTER and the patient's , brother at bedside. Discussed current status, family requests consult palliative care to discuss goals of care. This patient remains critically ill with one or more organ systems which are or may become a threat to life. I have spent in excess of 37 minutes discontinuously in the care and management of this patient. This time is exclusive of procedures, and includes, but is not limited to, evaluation of the patient, review of the medical record, discussions with family, consultants, nursing staff, or respiratory therapy, and documentation in the medical record. Physician Rolanda Maria MD Mar 06, 2017 14:43
[2017-03-06] MEDS ORDERED: PILL SPLITTER OTHER PRN (15:00)
[2017-03-06 16:53] LABS: BLOOD GAS BASE EXCESS 13.1 mmol/L (-2-2); BLOOD GAS CARBOXYHEMOGLOBIN 1.2 % (0-4); BLOOD GAS HCO3 38 mmol/L (22-26); BLOOD GAS METHEMOGLOBIN 1.2 % (0-2); BLOOD GAS O2 HGB SATURATION 86 % (90-100); BLOOD GAS OXYGEN CONTENT 19.5 Vol % (12.0-20.0); BLOOD GAS PCO2 57 mmHg (38-42); BLOOD GAS PO2 58 mmHg (61-120); BLOOD GAS TOTAL HGB 16.2 G/DL (12.0-16.0); CRITICAL VALUE YES; OXYGEN DEVICE VENTILATOR; TEMP CORR TO 98.6
[2017-03-06 16:54] LABS: DRAW SITE RT RADIAL; FIO2 70 %; NUMBER OF ARTERIAL PUNCTURES 1; STAT NO; VENT SETTINGS PC/AC
[2017-03-06] MEDS: LEVOFLOXACIN 500 MG PREMIX INJ 100 ML IV SCH (18:06)
[2017-03-06] MEDS: ATORVASTATIN 40 MG TAB PO SCH (22:42)
[2017-03-06] MEDS: METOPROLOL TARTRATE 25 MG TAB PO SCH (22:42)
[2017-03-07] VITALS (19 sets, daily range): BP systolic 122–165; BP diastolic 58–82; PULSE 78–95; RESP 12; TEMP 97.9–99; O2SAT 88–94
[2017-03-07] MEDS: PROPOFOL 1000 MG/100 ML INJ 100 ML IV SCH ×7 (03:06→23:59)
[2017-03-07] MEDS: fentaNYL DRIP 250 ML IV SCH ×2 (03:08→13:52)
[2017-03-07] MEDS: RESP: ALBUTEROL 2.5 MG/IPRATROPIUM 0.5 MG NEB (SCH) NEB ×3 (03:41→11:03)
[2017-03-07] MEDS: CHLORHEXIDINE GLUCONATE 2 % 1 PACK (2 CLOTHS) TOP SCH (04:00)
[2017-03-07] MEDS: INSULIN NovoLIN REGULAR SUPPLEMENTAL SCALE SQ SCH ×4 (05:00→23:00)
[2017-03-07] MEDS: HEPARIN SODIUM - SQ 10,000 UNITS/ML VIAL SQ SCH ×2 (05:00→17:22)
[2017-03-07] MEDS: FREE WATER G-TUBE SCH ×3 (05:52→22:00)
[2017-03-07 07:29] LABS: BICARBONATE 37.6 MEQ/L (21.0-32.0); MAGNESIUM 2.4 MG/DL (1.5-2.5); POTASSIUM 3.5 MEQ/L (3.5-5.1)
--- NOTE | 2017-03-07 08:02 | PD.CARD.PN ---
Subjective Subjective Remarks intubated and mechanically ventilated Objective Vital Signs / I&O Vital Signs Date Time Temp Pulse Resp B/P Pulse Ox O2 Delivery O2 Flow Rate FiO2 03/07/17 06:00 95 03/07/17 05:30 98.9 80 12 148/67 88 03/07/17 04:11 88 75 03/07/17 04:00 82 03/07/17 04:00 75 03/07/17 02:00 80 03/07/17 00:25 88 75 03/07/17 00:00 75 03/07/17 00:00 99.0 88 12 122/80 89 03/07/17 00:00 88 03/06/17 22:32 99.2 92 12 135/69 91 03/06/17 22:00 98 03/06/17 20:00 75 03/06/17 20:00 93 03/06/17 19:44 89 75 03/06/17 18:00 83 03/06/17 16:09 91 70 03/06/17 16:00 74 03/06/17 16:00 75 03/06/17 16:00 98.5 74 14 132/70 90 03/06/17 14:00 70 03/06/17 12:26 90 70 03/06/17 12:00 70 03/06/17 12:00 98.8 70 13 126/71 93 03/06/17 12:00 80 03/06/17 10:00 80 03/06/17 08:00 85 03/06/17 08:00 98.9 85 12 124/75 95 03/06/17 08:00 85 I/O 03/06/17 03/06/17 03/06/17 03/07/17 03/07/17 03/07/17 07:00 15:00 23:00 07:00 15:00 23:00 Intake Total 927 ml 1189 ml 1351 ml 637 ml Output Total 800 ml 1500 ml 2000 ml 750 ml Balance 127 ml -311 ml -649 ml -113 ml IV Total 332 ml 463 ml 650 ml 283 ml Tube Feeding 345 ml 476 ml 441 ml 354 ml Other 250 ml 250 ml 260 ml Output Urine Total 800 ml 1500 ml 2000 ml 750 ml # Bowel Movements 0 0 0 0 Physical Exam GENERAL: in no apparent distress. NECK: No JVD. No carotid bruit. CARDIOVASCULAR: Regular rate and rhythm. S1/S2 no murmur, rub, or gallop. RESPIRATORY: . diminished to auscultation. Breath sounds equal bilaterally. GASTROINTESTINAL: Abdomen soft, non-tender, nondistended. MUSCULOSKELETAL: edema. Laboratory Laboratory Tests Test 03/06/17 03/07/17 16:44 05:54 Blood Gas Puncture Site RT RADIAL Blood Gas Patient Temperature 98.6 Blood Gas HCO3 38 mmol/L Blood Gas Base Excess 13.1 mmol/L Blood Gas Oxygen Saturation 86 % Arterial Blood pH 7.44 Arterial Blood Partial 57 mmHg Pressure CO2 Arterial Blood Partial 58 mmHg Pressure O2 Arterial Blood Oxygen Content 19.5 Vol % Arterial Blood 1.2 % Carboxyhemoglobin Arterial Blood Methemoglobin 1.2 % Blood Gas Hemoglobin 16.2 G/DL Oxygen Delivery Device VENTILATOR Blood Gas Ventilator Setting PC/AC Blood Gas Inspired Oxygen 70 % Sodium Level 141 MEQ/L Potassium Level 3.5 MEQ/L Chloride Level 96 MEQ/L Carbon Dioxide Level 37.6 MEQ/L Anion Gap 7 MEQ/L Blood Urea Nitrogen 39 MG/DL Creatinine 0.79 MG/DL Estimat Glomerular Filtration 98 ML/MIN Rate Random Glucose 127 MG/DL Calcium Level 9.8 MG/DL Phosphorus Level 4.3 MG/DL Magnesium Level 2.4 MG/DL Assessment and Plan Problem List: (1) Ischemic dilated cardiomyopathy (2) CAD (coronary artery disease) (3) Hypertension (4) COPD (chronic obstructive pulmonary disease) (5) Atrial flutter (6) COPD with acute exacerbation (7) Acute respiratory failure Assessment and Plan respiratory failure - multifactorial. Intubated FiO2 75%. being treated for COPD exacerbation. CAD s/p CABG 1999 MANOJ-RCA atretic, ROBERTS-LAD patent, distal RCA BMS, mid LAD GILL NET STRINGER , co-dominant LCx with mild luminal irregularities. Last cath 2011. Cardiomyopathy - outpatient EF 25% chronically. Inpatient echo EF 45%. AICD in place. afib CHADS VASC2 = 4. patient was not interested in anticoagulation. acute on chronic systolic and diastolic CHF - continue Bumex 1 mg BID and metolazone 5 mg BID and. Continued good diuresis, weight down 9 Kg. Cr remains normal. Problem Qualifiers (1) Acute respiratory failure: Qualified Code: J96.02 - Acute respiratory failure with hypercapnia Dangelo Cintron Mar 07, 2017 08:02
[2017-03-07] MEDS: SENNOSIDES SYRUP 8.8 MG/5 ML CUP PO SCH (09:00)
[2017-03-07] MEDS: PANTOPRAZOLE SODIUM 40 MG VIAL IV SCH (10:36)
[2017-03-07] MEDS: LACTULOSE SYRUP 20 GM/30 ML CUP PO SCH ×2 (10:37→23:57)
[2017-03-07] MEDS: DOCUSATE SODIUM 100 MG/10 ML UDC PO SCH ×2 (10:37→23:58)
[2017-03-07] MEDS: BUMETANIDE INJ 1 MG/4 ML VIAL IV PUSH SCH ×2 (10:37→17:23)
[2017-03-07] MEDS: methylPREDNISolone SOD SUCC 40 MG/1 ML VIAL IV PUSH SCH ×2 (10:37→23:57)
[2017-03-07] MEDS: ASPIRIN 325 MG TAB PO SCH (10:38)
[2017-03-07] MEDS: CLOPIDOGREL 75 MG TAB PO SCH (10:38)
[2017-03-07] MEDS: METOPROLOL TARTRATE 25 MG TAB PO SCH ×2 (10:38→23:58)
[2017-03-07] MEDS: METOLAZONE 5 MG TAB PO SCH ×2 (10:38→17:23)
[2017-03-07] MEDS: cefTRIAXone INJ 1,000 MG in SODIUM CHLORIDE 0.9% INJ 100 ML IV SCH (12:22)
--- NOTE | 2017-03-07 14:07 | HHI.CCPN ---
Subjective Remarks/Hospital Course The patient is a 66-year-old male with past medical history of COPD, cardiomyopathy, hypertension, gastroesophageal reflux disease, hyperlipidemia and coronary artery disease. The patient presented to [facility] ED with a 2-week history of progressive worsening shortness of breath. On arrival to the ED he was initially placed on a non-rebreather mask and ABG was performed which showed acute hypercapnic respiratory failure with a pH of 7.14, CO2 121, pAO2 141, bicarb 40, sats 93%. His laboratory data significant for hyperkalemia with potassium level 6.0 and acute renal failure with a BUN of 43 and creatinine 2.07 respectively. The chest x-ray showed cardiomegaly and findings of vascular congestion without overt failure. In the ED the patient was intubated with etomidate and rocuronium and placed on full mechanical ventilation. In addition, he is scheduled to receive 10 units IV regular insulin, 1 amp of D50 and calcium gluconate for hyperkalemia. He received cefepime, azithromycin, Solu-Medrol 125 milligrams IV push and bronchodilator treatment. When seen the patient is on Diprivan infusion for sedation and full mechanical ventilation. Per the patient is not on any oxygen at home and he occasionally smokes cigarettes. 02/24 Patient is intubated and sedated with Diprivan and Fentanyl. Switched to PC/ AC with RR 12, IP:24, IT:1.06, PEEP: 8 and FIO2 100%. CXR this morning showed interval development of bilateral perihilar and lower lung zone airspace opacity he was given Lasix 60mg total overnight. 02/25 Patient remains sedated and intubated with Diprivan and Fentanyl. Afebrile.On PC/AC with RR 12, IP:22, IT:1.10, PEEP:10, FIO2 70%. Afebrile. Renal function worse today with Cr: 1.90 from 1.72 UO: 1150ml in 24 hrs 02/26 No acute events overnight. Sedated with Fentanyl and Diprivan and intubated. Afebrile. His O2 requirements is less now on PC/AC with IP:22, IT: 1.1 with PEEP: 10 and FIO2 55%. Renal function improving with Cr: 1.42 today from 1.90. Tolerating tube feeds. 02/27 Patient remains sedated with Diprivan and Fentanyl infusion and intubated. Afebrile. 02/28: Remains sedated, orally intubated on mechanical ventilation. Being diuresed with Bumex. Tolerating tube feeds. 03/01: Remains sedated, orally intubated on mechanical ventilation. Being diabetes. Remains on PEEP of 10 and FiO2 60% 03/02 Patient remains sedated with Diprivan and Fentanyl and intubated. On PC/AC with PEEP: 10 and FIO2 80% overnight and sats 93-94%. Afebrile. 03/03: The patient remains on high respiratory requirements PEEP of 10, and FiO2 70%. 03/04: Tmax 99.9. Overnight the patient was noted to have desaturations the patient received a bolus of midazolam and fentanyl for ventilator dyssynchrony. The patient was redosed with Diamox with approximately 2.5 L diuresis in the last 12 hours. The patient continues on an FiO2 of 70% with PEEP of 10 to maintain an O2 sat of 90%. 03/05: Afebrile. Patient's FiO2 remains at 60% to maintain O2sat ranging in 92% . Future plans for tracheostomy discussed with when ventilator requirements are decreased. Patient currently is on a PEEP of 10. Patient receiving multiple doses of diuretics chest x-ray still showing increased vascular congestion. Cardiology following metalazone added to medication regimen per cardiology for diuresis. 03/06: Patient's O2 requirements were increased overnight to FiO2 of 90%. The patient's FiO2 has been decreased now currently to 70% O2 sat is 90% ABG is pending. The patient's diuresis effective, 1 kg weight loss in 24 hours. 03/07: The patient continues to have effective diuresis. The patient's O2 requirements currently FiO2 is 70% to maintain a sat of 90-91%. Discussion with Ms. London yesterday, she would like to discuss with palliative team goals of care. Palliative care consult initiated. Objective Vital Signs Date Time Temp Pulse Resp B/P Pulse Ox O2 Delivery O2 Flow Rate FiO2 03/07/17 12:00 98.2 88 12 147/78 88 03/07/17 10:58 75 Intake and Output 03/06/17 03/06/17 03/07/17 08:00 16:00 00:00 Intake Total 927 ml 1189 ml 1351 ml Output Total 800 ml 1500 ml 2000 ml Balance 127 ml -311 ml -649 ml Result Diagram: 03/06/17 0444 03/07/17 0554 Other Results Laboratory Tests Test 03/06/17 16:44 Blood Gas Puncture Site RT RADIAL Blood Gas Patient Temperature 98.6 Blood Gas HCO3 38 mmol/L (22-26) Blood Gas Base Excess 13.1 mmol/L (-2-2) Blood Gas Oxygen Saturation 86 % (90-100) Arterial Blood pH 7.44 (7.380-7.420) Arterial Blood Partial 57 mmHg (38-42) Pressure CO2 Arterial Blood Partial 58 mmHg Pressure O2 (61-120) Arterial Blood Oxygen Content 19.5 Vol % (12.0-20.0) Arterial Blood 1.2 % (0-4) Carboxyhemoglobin Arterial Blood Methemoglobin 1.2 % (0-2) Blood Gas Hemoglobin 16.2 G/DL (12.0-16.0) Oxygen Delivery Device VENTILATOR Blood Gas Ventilator Setting PC/AC Blood Gas Inspired Oxygen 70 % Imaging Last Impressions Chest X-Ray 02/28/17 0600 Signed Impressions: Service Date/Time: Tuesday, February 28, 2017 03:29 - CONCLUSION: No change in the pulmonary edema. Garrick Hinton Jr., MD Lower Extremity Ultrasound 02/27/17 0000 Signed Impressions: Service Date/Time: Monday, February 27, 2017 08:31 - CONCLUSION: Normal examination. Nick Farrell MD Abdomen X-Ray 02/24/17 0000 Signed Impressions: Service Date/Time: Friday, February 24, 2017 10:43 - CONCLUSION: 1. Nasogastric tube just across the GE junction. 2. Minimal nonspecific bowel gas dilatation. Artur Bob MD FACR Objective Remarks GENERAL: Patient is 66 yo intubated and sedated. SKIN: Warm and dry. HEAD: Normocephalic. EYES: No scleral icterus. No injection or drainage. NECK: Supple, trachea midline. No JVD or lymphadenopathy. Patient has multiple carious sharp teeth, noted small laceration of tongue, not currently bleeding. Gauze bite block in situ. CARDIOVASCULAR: Regular rate and rhythm without murmurs, gallops, or rubs. RESPIRATORY: On mechanical ventilation, orally intubated, Breath sounds equal bilaterally. Coarse BS GASTROINTESTINAL: Abdomen soft, non-tender, nondistended. OGT, tube feedings infusing MUSCULOSKELETAL: 2+ bilateral edema in upper extremities. Neuro: Sedated, orally intubated on propofol and fentanyl infusions Urinary Catheter: Yes [employer] insert reason: ICU Pt Getting Diuretics Date of Removal: Mar 04, 2017 Line: Central Venous Catheter Side: Right A/P Assessment and Plan 1. Acute hypercapnic and hypoxemic respiratory failure. 2. COPD exacerbation. 3. Acute renal failure. 4. Hyperkalemia. 5. Obstructive sleep apnea and morbid obesity. 6. Ischemic dilated Cardiomyopathy. S/P AICD 03/2015 7. History of coronary artery disease. 8. Gastroesophageal reflux disease. 9. Hypertension. 10. Hyperlipidemia. 11 Pulm edema 12. Acute on chronic systolic and diastolic CHF 13. Pulmonary hypertension Plan: Neuro: On Diprivan and Fentanyl infusion for sedation. Daily sedation vacation when appropriate. Ventilator settings currently are elevated, PEEP 10 unable to perform sedation vacation. CV: Metoprolol XL changed to Lopressor BP keep MAP>65mmHg On aspirin 325 milligrams p.o. daily and Plavix 75 mg p.o. daily. 01/2017 Echo showed EF 40-45%, nl LV diastolic function, No RWMA Cardiology following Pulm: On PC/AC RR 12, IP:22, IT:1.1 PEEP: 10, FIO2: 60%, decrease FIO2 as kristie Continue with vent support and maintain sats above 92%. CXR-bilateral consolidation in bases, atelectasis, possible effusions Bronchodilators every 4 hours, Solu-Medrol 40 mg IV BID. Pulm-Dr. Lashell Padron following CTA chest showed no PE, small pleural effusions ETT, day 12-plan for tracheostomy in near future, when ventilatory requirements are decreased, with PEEP less than 10 : Monitor renal function Is and Os and avoid nephrotoxins. Electrolytes replacement per protocol.. On Bumex 1mg BID, place on Free water 250ml Q8, monitor sodium level. 03/05 Metalazone begun per cardiology GI: On Protonix 40 milligrams IV daily for GI prophylaxis. On TF- Glucerna 1.5 @45ml/hr, no residual Senna, Colace for bowel regimen, Lactulose 15mg BID, last BM 03/04 02/24 KUB abdomen: Minimal non-specific bowel gas dilatation ID: continue with empiric abx(Levaquin (day 3), Rocephin(day 9) and monitor for signs of infections( fever and WBC) Follow up on sputum cx-[id number] Heme: Monitor CBC. Endo: SSI with Accu-Chek q. 6-hour for glycemic control. GI prophylaxis with Protonix 40 mg daily and DVT prophylaxis with SCDs and heparin SQ Doppler US LE no DVT Dispo: Discussed patient with DEPORTATION OFFICER and the patient's , at bedside. Palliative care following. This patient remains critically ill with one or more organ systems which are or may become a threat to life. I have spent in excess of 33 minutes discontinuously in the care and management of this patient. This time is exclusive of procedures, and includes, but is not limited to, evaluation of the patient, review of the medical record, discussions with family, consultants, nursing staff, or respiratory therapy, and documentation in the medical record. Physician Rolanda Maria MD Mar 07, 2017 14:07
[2017-03-07 14:18] LABS: BLOOD GAS BASE EXCESS 13.3 mmol/L (-2-2); BLOOD GAS CARBOXYHEMOGLOBIN 1.2 % (0-4); BLOOD GAS HCO3 38 mmol/L (22-26); BLOOD GAS METHEMOGLOBIN 1.2 % (0-2); BLOOD GAS O2 HGB SATURATION 86 % (90-100); BLOOD GAS OXYGEN CONTENT 19.2 Vol % (12.0-20.0); BLOOD GAS PCO2 56 mmHg (38-42); BLOOD GAS PO2 58 mmHg (61-120); TEMP CORR TO 98.6
[2017-03-07 14:19] LABS: CRITICAL VALUE YES; DRAW SITE RT RADIAL; FIO2 75 %; NUMBER OF ARTERIAL PUNCTURES 1; OXYGEN DEVICE VENTILATOR; STAT NO; ULNAR PULSE PRESENT; VENT SETTINGS PC/AC
[2017-03-07] MEDS: LEVOFLOXACIN 500 MG PREMIX INJ 100 ML IV SCH (17:21)
[2017-03-07] MEDS: ATORVASTATIN 40 MG TAB PO SCH (23:58)
[2017-03-08] VITALS (18 sets, daily range): BP systolic 119–144; BP diastolic 67–80; PULSE 69–89; RESP 12–18; TEMP 98.4–99.1; O2SAT 88–93
[2017-03-08] MEDS: INSULIN NovoLIN REGULAR SUPPLEMENTAL SCALE SQ SCH ×4 (04:00→23:00)
[2017-03-08] MEDS: HEPARIN SODIUM - SQ 10,000 UNITS/ML VIAL SQ SCH ×2 (04:00→16:38)
[2017-03-08] MEDS: CHLORHEXIDINE GLUCONATE 2 % 1 PACK (2 CLOTHS) TOP SCH (04:00)
[2017-03-08] MEDS: FREE WATER G-TUBE SCH ×2 (04:00→14:00)
[2017-03-08] MEDS: PROPOFOL 1000 MG/100 ML INJ 100 ML IV SCH ×7 (04:01→22:26)
[2017-03-08 04:54] LABS: HEMATOCRIT 47.5 % (39.0-51.0); MEAN CELL VOLUME 93.2 FL (80.0-100.0); MEAN CORPUSCULAR HEMOGLOBIN 30.6 PG (27.0-34.0); MEAN CORPUSCULAR HGB CONC 32.8 % (32.0-36.0); PLATELET COUNT 131 TH/MM3 (150-450); RED BLOOD COUNT 5.09 MIL/MM3 (4.50-5.90); REVIEW FLAG FINAL; WHITE BLOOD COUNT 13.9 TH/MM3 (4.0-11.0)
--- NOTE | 2017-03-08 05:01 | RADRPT ---
EXAM DATE/TIME: 03/08/2017 02:25 [place] COMPARISON: CHEST SINGLE AP, March 06, 2017, 3:58. INDICATIONS : Shortness of breath, possible pulmonary disease. MEDICAL HISTORY : Hypertension. Hypercholesterolemia. Arthritis. COPD SURGICAL HISTORY : CABG. Pacemaker. ENCOUNTER: Subsequent ACUITY: 1 week PAIN SCORE: Non-responsive. LOCATION: Bilateral chest FINDINGS: A single view of the chest demonstrates cardiomegaly with bibasilar densities. Previous median sterno alexandra and CABG. Left-sided defibrillator with intact leads. Endotracheal tube and nasogastric tube are unchanged.. The cardiomediastinal contours are unremarkable. Osseous structures are intact. CONCLUSION: Slight improvement of bibasilar densities. Fernando Mack MD on March 08, 2017 at 4:59 Board Certified Radiologist. This report was verified electronically.
[2017-03-08 05:15] LABS: BICARBONATE 42.5 MEQ/L (21.0-32.0); MAGNESIUM 2.4 MG/DL (1.5-2.5); POTASSIUM 3.2 MEQ/L (3.5-5.1)
[2017-03-08 05:32] LABS: BLOOD GAS BASE EXCESS 17.1 mmol/L (-2-2); BLOOD GAS CARBOXYHEMOGLOBIN 1.2 % (0-4); BLOOD GAS HCO3 43 mmol/L (22-26); BLOOD GAS METHEMOGLOBIN 1.4 % (0-2); BLOOD GAS O2 HGB SATURATION 88 % (90-100); BLOOD GAS OXYGEN CONTENT 19.8 Vol % (12.0-20.0); BLOOD GAS PCO2 66 mmHg (38-42); BLOOD GAS PO2 65 mmHg (61-120); BLOOD GAS TOTAL HGB 16.1 G/DL (12.0-16.0); TEMP CORR TO 98.6
[2017-03-08 05:34] LABS: CRITICAL VALUE YES; OXYGEN DEVICE VENTILATOR
[2017-03-08 05:35] LABS: DRAW SITE RT RADIAL; FIO2 80 %; NUMBER OF ARTERIAL PUNCTURES 1; STAT NO; ULNAR PULSE PRESENT; VENT SETTINGS PC/AC
--- NOTE | 2017-03-08 07:32 | PD.CARD.PN ---
Subjective Subjective Remarks intubated and mechanically ventilated (Dangelo Cintron) Objective Vital Signs / I&O Vital Signs Date Time Temp Pulse Resp B/P Pulse Ox O2 Delivery O2 Flow Rate FiO2 03/08/17 06:00 71 03/08/17 04:26 90 80 03/08/17 04:00 79 03/08/17 04:00 98.5 79 12 132/68 90 03/08/17 04:00 80 03/08/17 02:00 76 03/08/17 01:38 91 80 03/08/17 00:00 78 03/08/17 00:00 80 03/08/17 00:00 98.6 78 12 137/72 92 03/07/17 22:07 94 80 03/07/17 22:00 78 03/07/17 20:00 81 03/07/17 20:00 80 03/07/17 20:00 98.8 81 12 140/65 91 03/07/17 18:00 82 03/07/17 17:33 91 80 03/07/17 16:00 98.2 81 12 165/58 90 03/07/17 16:00 81 03/07/17 14:00 80 03/07/17 12:00 98.2 88 12 147/78 88 03/07/17 12:00 88 03/07/17 10:58 91 75 03/07/17 10:02 82 03/07/17 09:37 91 75 03/07/17 08:00 87 03/07/17 08:00 97.9 87 12 148/82 91 I/O 03/07/17 03/07/17 03/07/17 03/08/17 03/08/17 03/08/17 07:00 15:00 23:00 07:00 15:00 23:00 Intake Total 637 ml 1100 ml 2352 ml Output Total 750 ml 1450 ml 425 ml 2400 ml Balance -113 ml -350 ml -425 ml -48 ml Intake Oral 0 ml IV Total 283 ml 578 ml 991 ml Tube Feeding 354 ml 272 ml 801 ml Other 250 ml 560 ml Output Urine Total 750 ml 1450 ml 425 ml 2400 ml Stool Total 0 ml # Bowel Movements 0 Physical Exam GENERAL: in no apparent distress. NECK: No JVD. No carotid bruit. CARDIOVASCULAR: Regular rate and rhythm. S1/S2 no murmur, rub, or gallop. RESPIRATORY: . diminished to auscultation. Breath sounds equal bilaterally. GASTROINTESTINAL: Abdomen soft, non-tender, nondistended. MUSCULOSKELETAL: edema. Laboratory Laboratory Tests Test 03/07/17 03/08/17 03/08/17 14:10 04:30 05:22 Blood Gas Puncture Site RT RADIAL RT RADIAL Blood Gas Patient Temperature 98.6 98.6 Blood Gas HCO3 38 mmol/L 43 mmol/L Blood Gas Base Excess 13.3 mmol/L 17.1 mmol/L Blood Gas Oxygen Saturation 86 % 88 % Arterial Blood pH 7.45 7.43 Arterial Blood Partial 56 mmHg 66 mmHg Pressure CO2 Arterial Blood Partial 58 mmHg 65 mmHg Pressure O2 Arterial Blood Oxygen Content 19.2 Vol % 19.8 Vol % Arterial Blood 1.2 % 1.2 % Carboxyhemoglobin Arterial Blood Methemoglobin 1.2 % 1.4 % Blood Gas Hemoglobin 16.0 G/DL 16.1 G/DL Oxygen Delivery Device VENTILATOR VENTILATOR Blood Gas Ventilator Setting PC/AC PC/AC Blood Gas Inspired Oxygen 75 % 80 % White Blood Count 13.9 TH/MM3 Red Blood Count 5.09 MIL/MM3 Hemoglobin 15.6 GM/DL Hematocrit 47.5 % Mean Corpuscular Volume 93.2 FL Mean Corpuscular Hemoglobin 30.6 PG Mean Corpuscular Hemoglobin 32.8 % Concent Red Cell Distribution Width 16.0 % Platelet Count 131 TH/MM3 Mean Platelet Volume 9.4 FL Sodium Level 139 MEQ/L Potassium Level 3.2 MEQ/L Chloride Level 91 MEQ/L Carbon Dioxide Level 42.5 MEQ/L Anion Gap 6 MEQ/L Blood Urea Nitrogen 40 MG/DL Creatinine 0.75 MG/DL Estimat Glomerular Filtration 104 ML/MIN Rate Random Glucose 126 MG/DL Calcium Level 9.5 MG/DL Phosphorus Level 4.1 MG/DL Magnesium Level 2.4 MG/DL (Dangelo Cintron) Assessment and Plan Problem List: (1) Ischemic dilated cardiomyopathy (2) CAD (coronary artery disease) (3) Hypertension (4) COPD (chronic obstructive pulmonary disease) (5) Atrial flutter (6) COPD with acute exacerbation (7) Acute respiratory failure Assessment and Plan respiratory failure - multifactorial. Intubated FiO2 80%. being treated for COPD exacerbation. 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 Last cath 2011. Cardiomyopathy - outpatient EF 25% chronically. Inpatient echo EF 45%. AICD in place. afib CHADS VASC2 = 4. patient was not interested in anticoagulation. acute on chronic systolic and diastolic CHF - continue Bumex 1 mg BID and metolazone 5 mg BID and. Continued good diuresis Cr remains normal. Replete K (Dangelo Cintron) Assessment and Plan negative I/O but still very volume overloaded. will DC bumex and metolazone start lasix gtt 10 mg/hr and titrate as needed for Urine Output - 50-100 cc/hr replete K+ protocol needs trach and peg tube (Slade Cole MD) Problem Qualifiers (1) Acute respiratory failure: Qualified Code: J96.02 - Acute respiratory failure with hypercapnia Dangelo Cintron Mar 08, 2017 07:32 Slade Cole MD Mar 08, 2017 12:11
[2017-03-08] MEDS ORDERED: POTASSIUM CHLORIDE 20 MEQ CONTROLLED RELEASE TAB PO SCH (09:00)
[2017-03-08] MEDS: PANTOPRAZOLE SODIUM 40 MG VIAL IV SCH (09:04)
[2017-03-08] MEDS: BUMETANIDE INJ 1 MG/4 ML VIAL IV PUSH SCH (09:04)
[2017-03-08] MEDS: METOLAZONE 5 MG TAB PO SCH (09:05)
[2017-03-08] MEDS: ASPIRIN 325 MG TAB PO SCH (09:05)
[2017-03-08] MEDS: DOCUSATE SODIUM 100 MG/10 ML UDC PO SCH ×2 (09:05→20:46)
[2017-03-08] MEDS: methylPREDNISolone SOD SUCC 40 MG/1 ML VIAL IV PUSH SCH ×2 (09:05→20:46)
[2017-03-08] MEDS: CLOPIDOGREL 75 MG TAB PO SCH (09:05)
[2017-03-08] MEDS: LACTULOSE SYRUP 20 GM/30 ML CUP PO SCH ×2 (09:05→20:46)
[2017-03-08] MEDS: SENNOSIDES SYRUP 8.8 MG/5 ML CUP PO SCH (09:06)
[2017-03-08] MEDS: METOPROLOL TARTRATE 25 MG TAB PO SCH (09:06)
[2017-03-08] MEDS: fentaNYL DRIP 250 ML IV SCH ×2 (09:21→19:07)
[2017-03-08] MEDS: FUROSEMIDE INJ 100 MG in SODIUM CHLORIDE 0.9% INJ 90 ML IV SCH ×2 (13:06→21:58)
[2017-03-08] MEDS: cefTRIAXone INJ 1,000 MG in SODIUM CHLORIDE 0.9% INJ 100 ML IV SCH (13:24)
[2017-03-08] MEDS ORDERED: POTASSIUM CHLOR 40 MEQ PREMIX 100 ML IV-CENTRAL PRN ×2 (13:30)
[2017-03-08] MEDS ORDERED: SODIUM PHOSPHATE INJ 30 MMOL in SODIUM CHLOR 0.9% 250 ML INJ 240 ML IV PRN (13:30)
[2017-03-08] MEDS ORDERED: POTASSIUM PHOSPHATE MONOBASIC 500 MG TAB PO PRN (13:30)
[2017-03-08] MEDS ORDERED: MAGNESIUM SULFATE INJ 2 GM in SODIUM CHLORIDE 0.9% INJ 96 ML IV PRN (13:30)
[2017-03-08] MEDS ORDERED: POTASSIUM CHLOR 20 MEQ PREMIX 100 ML IV PRN (13:30)
[2017-03-08] MEDS ORDERED: MAGNESIUM OXIDE 400 MG TAB PO PRN (13:30)
[2017-03-08] MEDS ORDERED: MAGNESIUM SULFATE INJ 4 GM in SODIUM CHLORIDE 0.9% INJ 92 ML IV PRN (13:30)
[2017-03-08] MEDS ORDERED: POTASSIUM CHLORIDE 25 MEQ EFFERVESCENT TAB PO PRN (13:30)
[2017-03-08] MEDS: POTASSIUM CHLOR 20 MEQ PREMIX 100 ML IV PRN (14:19)
--- NOTE | 2017-03-08 15:27 | HHI.CCPN ---
Subjective Remarks/Hospital Course The patient is a 66-year-old male with past medical history of COPD, cardiomyopathy, hypertension, gastroesophageal reflux disease, hyperlipidemia and coronary artery disease. The patient presented to [facility] ED with a 2-week history of progressive worsening shortness of breath. On arrival to the ED he was initially placed on a non-rebreather mask and ABG was performed which showed acute hypercapnic respiratory failure with a pH of 7.14, CO2 121, pAO2 141, bicarb 40, sats 93%. His laboratory data significant for hyperkalemia with potassium level 6.0 and acute renal failure with a BUN of 43 and creatinine 2.07 respectively. The chest x-ray showed cardiomegaly and findings of vascular congestion without overt failure. In the ED the patient was intubated with etomidate and rocuronium and placed on full mechanical ventilation. In addition, he is scheduled to receive 10 units IV regular insulin, 1 amp of D50 and calcium gluconate for hyperkalemia. He received cefepime, azithromycin, Solu-Medrol 125 milligrams IV push and bronchodilator treatment. When seen the patient is on Diprivan infusion for sedation and full mechanical ventilation. Per the patient is not on any oxygen at home and he occasionally smokes cigarettes. 02/24 Patient is intubated and sedated with Diprivan and Fentanyl. Switched to PC/ AC with RR 12, IP:24, IT:1.06, PEEP: 8 and FIO2 100%. CXR this morning showed interval development of bilateral perihilar and lower lung zone airspace opacity he was given Lasix 60mg total overnight. 02/25 Patient remains sedated and intubated with Diprivan and Fentanyl. Afebrile.On PC/AC with RR 12, IP:22, IT:1.10, PEEP:10, FIO2 70%. Afebrile. Renal function worse today with Cr: 1.90 from 1.72 UO: 1150ml in 24 hrs 02/26 No acute events overnight. Sedated with Fentanyl and Diprivan and intubated. Afebrile. His O2 requirements is less now on PC/AC with IP:22, IT: 1.1 with PEEP: 10 and FIO2 55%. Renal function improving with Cr: 1.42 today from 1.90. Tolerating tube feeds. 02/27 Patient remains sedated with Diprivan and Fentanyl infusion and intubated. Afebrile. 02/28: Remains sedated, orally intubated on mechanical ventilation. Being diuresed with Bumex. Tolerating tube feeds. 03/01: Remains sedated, orally intubated on mechanical ventilation. Being diabetes. Remains on PEEP of 10 and FiO2 60% 03/02 Patient remains sedated with Diprivan and Fentanyl and intubated. On PC/AC with PEEP: 10 and FIO2 80% overnight and sats 93-94%. Afebrile. 03/03: The patient remains on high respiratory requirements PEEP of 10, and FiO2 70%. 03/04: Tmax 99.9. Overnight the patient was noted to have desaturations the patient received a bolus of midazolam and fentanyl for ventilator dyssynchrony. The patient was redosed with Diamox with approximately 2.5 L diuresis in the last 12 hours. The patient continues on an FiO2 of 70% with PEEP of 10 to maintain an O2 sat of 90%. 03/05: Afebrile. Patient's FiO2 remains at 60% to maintain O2sat ranging in 92% . Future plans for tracheostomy discussed with when ventilator requirements are decreased. Patient currently is on a PEEP of 10. Patient receiving multiple doses of diuretics chest x-ray still showing increased vascular congestion. Cardiology following metalazone added to medication regimen per cardiology for diuresis. 03/06: Patient's O2 requirements were increased overnight to FiO2 of 90%. The patient's FiO2 has been decreased now currently to 70% O2 sat is 90% ABG is pending. The patient's diuresis effective, 1 kg weight loss in 24 hours. 03/07: The patient continues to have effective diuresis. The patient's O2 requirements currently FiO2 is 70% to maintain a sat of 90-91%. Discussion with Ms. London yesterday, she would like to discuss with palliative team goals of care. Palliative care consult initiated. 03/08: The patient was less responsive to diuretics today, positive weight balance last 24 hours. The patient was placed on a Lasix infusion, noted occasional PVCs on telemetry. Patient potassium repletion ongoing, schedule potassium PO intake increased to 50 mEq twice a day. Free water flushes placed on hold, was sodium level 145 will continue to monitor. Chest x-ray shows slight improvement. Continued management of ventilator settings ARDS protocol, maintaining PaO2 60 or greater and adjusting vent settings based on PaO2. Sedation vacation attempted today by MANAGER MANAGING, GCS 11T. Noted WBC elevation today ID consulted. Objective Vital Signs Date Time Temp Pulse Resp B/P Pulse Ox O2 Delivery O2 Flow Rate FiO2 03/08/17 14:00 69 03/08/17 12:00 75 03/08/17 12:00 99.1 18 126/67 91 Intake and Output 03/07/17 03/07/17 03/08/17 08:00 16:00 00:00 Intake Total 637 ml 1100 ml Output Total 750 ml 1450 ml 425 ml Balance -113 ml -350 ml -425 ml Result Diagram: 03/08/17 0430 03/08/17 0430 Other Results Laboratory Tests Test 03/08/17 05:22 Blood Gas Puncture Site RT RADIAL Blood Gas Patient Temperature 98.6 Blood Gas HCO3 43 mmol/L (22-26) Blood Gas Base Excess 17.1 mmol/L (-2-2) Blood Gas Oxygen Saturation 88 % (90-100) Arterial Blood pH 7.43 (7.380-7.420) Arterial Blood Partial 66 mmHg (38-42) Pressure CO2 Arterial Blood Partial 65 mmHg Pressure O2 (61-120) Arterial Blood Oxygen Content 19.8 Vol % (12.0-20.0) Arterial Blood 1.2 % (0-4) Carboxyhemoglobin Arterial Blood Methemoglobin 1.4 % (0-2) Blood Gas Hemoglobin 16.1 G/DL (12.0-16.0) Oxygen Delivery Device VENTILATOR Blood Gas Ventilator Setting PC/AC Blood Gas Inspired Oxygen 80 % Imaging Last Impressions Chest X-Ray 02/28/17 0600 Signed Impressions: Service Date/Time: Tuesday, February 28, 2017 03:29 - CONCLUSION: No change in the pulmonary edema. Garrick Hinton Jr., MD Lower Extremity Ultrasound 02/27/17 0000 Signed Impressions: Service Date/Time: Monday, February 27, 2017 08:31 - CONCLUSION: Normal examination. Nick Farrell MD Abdomen X-Ray 02/24/17 0000 Signed Impressions: Service Date/Time: Friday, February 24, 2017 10:43 - CONCLUSION: 1. Nasogastric tube just across the GE junction. 2. Minimal nonspecific bowel gas dilatation. Artur Bob MD FACR Objective Remarks GENERAL: Patient is 66 yo intubated and sedated. SKIN: Warm and dry. HEAD: Normocephalic. EYES: No scleral icterus. No injection or drainage. NECK: Supple, trachea midline. No JVD or lymphadenopathy. Patient has multiple carious sharp teeth, noted small laceration of tongue, not currently bleeding. Gauze bite block in situ. CARDIOVASCULAR: Regular rate and rhythm without murmurs, gallops, or rubs. RESPIRATORY: On mechanical ventilation, orally intubated, Breath sounds equal bilaterally. Coarse BS GASTROINTESTINAL: Abdomen soft, non-tender, nondistended. OGT, tube feedings infusing MUSCULOSKELETAL: 2+ bilateral edema in upper extremities. Neuro: Sedated, orally intubated on propofol and fentanyl infusions Date of Removal: Mar 04, 2017 Line: Central Venous Catheter Side: Right A/P Assessment and Plan 1. Acute hypercapnic and hypoxemic respiratory failure. 2. COPD exacerbation. 3. Acute renal failure. 4. Hyperkalemia. 5. Obstructive sleep apnea and morbid obesity. 6. Ischemic dilated Cardiomyopathy. S/P AICD 03/2015 7. History of coronary artery disease. 8. Gastroesophageal reflux disease. 9. Hypertension. 10. Hyperlipidemia. 11 Pulm edema 12. Acute on chronic systolic and diastolic CHF 13. Pulmonary hypertension Plan: Neuro: On Diprivan and Fentanyl infusion for sedation. Daily sedation vacation when appropriate. Ventilator settings currently are elevated, PEEP 10 unable to perform sedation vacation. CV: Metoprolol XL changed to Lopressor BP keep MAP>65mmHg On aspirin 325 milligrams p.o. daily and Plavix 75 mg p.o. daily. 01/2017 Echo showed EF 40-45%, nl LV diastolic function, No RWMA Cardiology following-Dr. Cole, placed on Pulm: On PC/AC RR 12, IP:22, IT:1.1 PEEP: 10, FIO2: 60%, decrease FIO2 as kristie Continue with vent support and maintain sats above 92%. CXR-bilateral consolidation in bases, atelectasis, possible effusions Bronchodilators every 4 hours, Solu-Medrol 40 mg IV BID. Pulm-Dr. Lashell aPdron following CTA chest showed no PE, small pleural effusions ETT, day 12-plan for tracheostomy in near future, when ventilatory requirements are decreased, with PEEP less than 10 : Monitor renal function Is and Os and avoid nephrotoxins. Electrolytes replacement per protocol. Repeat potassium level 1900 this evening post replacement Free water 250ml Q8 placed on hold, monitor sodium level, currently 145. 4/10 Metalazone and Bumex discontinued. The patient was placed on Lasix drip 10 mg/hour GI: On Protonix 40 milligrams IV daily for GI prophylaxis. On TF- Glucerna 1.5 @45ml/hr, no residual Senna, Colace for bowel regimen, Lactulose 15mg BID, last BM 03/04 02/24 KUB abdomen: Minimal non-specific bowel gas dilatation ID: WBC count elevated .Unable to perform bronchoscopy (BAL) secondary to elevated ventilatory requirements continue with empiric abx(Levaquin (day 3), Rocephin(day 9) and monitor for signs of infections( fever and WBC) Follow up on sputum [id number] Heme: Monitor CBC. Endo: SSI with Accu-Chek q. 6-hour for glycemic control. GI prophylaxis with Protonix 40 mg daily and DVT prophylaxis with SCDs and heparin SQ Doppler US LE no DVT Dispo: Discussed patient with MANAGER MANAGING. Palliative care following. This patient remains critically ill with one or more organ systems which are or may become a threat to life. I have spent in excess of 30 minutes discontinuously in the care and management of this patient. This time is exclusive of procedures, and includes, but is not limited to, evaluation of the patient, review of the medical record, discussions with family, consultants, nursing staff, or respiratory therapy, and documentation in the medical record. Physician Rolanda Maria MD Mar 08, 2017 15:27
[2017-03-08] MEDS: LEVOFLOXACIN 500 MG PREMIX INJ 100 ML IV SCH (16:38)
[2017-03-08] MEDS: POTASSIUM CHLORIDE 25 MEQ EFFERVESCENT TAB PO SCH (16:39)
[2017-03-08 18:16] LABS: BLOOD GAS BASE EXCESS 18.3 mmol/L (-2-2); BLOOD GAS CARBOXYHEMOGLOBIN 1.2 % (0-4); BLOOD GAS HCO3 44 mmol/L (22-26); BLOOD GAS METHEMOGLOBIN 1.2 % (0-2); BLOOD GAS O2 HGB SATURATION 88 % (90-100); BLOOD GAS OXYGEN CONTENT 20.4 Vol % (12.0-20.0); BLOOD GAS PCO2 66 mmHg (38-42); BLOOD GAS PO2 63 mmHg (61-120); BLOOD GAS TOTAL HGB 16.6 G/DL (12.0-16.0); TEMP CORR TO 98.6
[2017-03-08 18:17] LABS: CRITICAL VALUE YES; OXYGEN DEVICE VENTILATOR
[2017-03-08 18:18] LABS: DRAW SITE RT RADIAL; FIO2 75 %; NUMBER OF ARTERIAL PUNCTURES 1; STAT NO; ULNAR PULSE PRESENT
[2017-03-08] MEDS: ATORVASTATIN 40 MG TAB PO SCH (20:46)
[2017-03-08] MEDS: CHLORHEXIDINE 0.12% (ORAL KIT) 15 ML CUP MT SCH (20:46)
[2017-03-08 20:59] LABS: POTASSIUM 3.7 MEQ/L (3.5-5.1)
[2017-03-09] VITALS (17 sets, daily range): BP systolic 99–142; BP diastolic 55–76; PULSE 70–99; RESP 12–15; TEMP 97.4–100.4; O2SAT 85–97
[2017-03-09] MEDS: PROPOFOL 1000 MG/100 ML INJ 100 ML IV SCH ×6 (01:40→23:51)
[2017-03-09] MEDS: CHLORHEXIDINE GLUCONATE 2 % 1 PACK (2 CLOTHS) TOP SCH ×2 (01:57→23:35)
[2017-03-09] MEDS: HEPARIN SODIUM - SQ 10,000 UNITS/ML VIAL SQ SCH ×2 (04:24→15:43)
[2017-03-09] MEDS: POTASSIUM CHLORIDE 25 MEQ EFFERVESCENT TAB PO SCH ×2 (04:24→15:43)
[2017-03-09] MEDS: INSULIN NovoLIN REGULAR SUPPLEMENTAL SCALE SQ SCH ×4 (04:28→23:00)
[2017-03-09 06:34] LABS: BICARBONATE 43.2 MEQ/L (21.0-32.0); MAGNESIUM 2.5 MG/DL (1.5-2.5)
[2017-03-09 07:18] LABS: MEAN CELL VOLUME 91.7 FL (80.0-100.0); MEAN CORPUSCULAR HEMOGLOBIN 30.7 PG (27.0-34.0); MEAN CORPUSCULAR HGB CONC 33.4 % (32.0-36.0); PLATELET COUNT 157 TH/MM3 (150-450); RED BLOOD COUNT 5.66 MIL/MM3 (4.50-5.90); RED CELL DISTRIBUTION WIDTH 15.7 % (11.6-17.2); WHITE BLOOD COUNT 13.7 TH/MM3 (4.0-11.0)
[2017-03-09 07:48] LABS: REVIEW FLAG FINAL
--- NOTE | 2017-03-09 08:30 | PD.CARD.PN ---
Subjective Subjective Remarks still intubated on lasix gtt Objective Medications Active Medications Chlorhexidine Gluconate (Peridex 0.12% Liq) 15 ml BID@08,20 MT Last administered on 03/08/17 20:46; Admin Dose 15 ML; Start 03/08/17 at 20:00 Furosemide 100 mg/ Sodium Chloride 100 ml @ 0 mls/hr CONTINUOUS IV Last administered on 03/08/17 21:58; Admin Dose 0 MLS/HR; Start 03/08/17 at 14:15 Lisinopril 5 mg 5 mg DAILY PO; Start 03/09/17 at 09:00 Magnesium Oxide 800 mg 800 mg UNSCH PRN PO; Start 03/08/17 at 13:30 Magnesium Sulfate/ Sodium Chloride (Magnesium Sulfate Inj/NS Inj) 100 ml @ 50 mls/hr UNSCH PRN IV; Start 03/08/17 at 13:30 Magnesium Sulfate/ Sodium Chloride (Magnesium Sulfate Inj/NS Inj) 100 ml @ 50 mls/hr UNSCH PRN IV; Start 03/08/17 at 13:30 Potassium Phosphate 2000 mg 2,000 mg Q4H PRN PO; Start 03/08/17 at 13:30 Potassium Bicarb/ Potassium Chloride 50 meq 50 meq UNSCH PRN PO; Start at 13:30 Potassium Bicarb/ Potassium Chloride (K-Lyte Cl Eff) 50 meq Q12H PO Last administered on 03/09/17 04:24; Admin Dose 50 MEQ; Start 03/08/17 at 16:00 Potassium Chloride 100 ml @ 25 mls/hr UNSCH PRN IV-CENTRAL; Start 03/08/17 at 13:30 Potassium Chloride 100 ml @ 50 mls/hr Q2H PRN IV; Start 03/08/17 at 13:30 Potassium Chloride 100 ml @ 50 mls/hr Q2H PRN IV-CENTRAL; Start 03/08/17 at 13 :30 Potassium Chloride (KCl 20 Meq Premix Inj) 100 ml @ 50 mls/hr Q2H PRN IV Last administered on 03/08/17 14:19; Admin Dose 50 MLS/HR; Start 03/08/17 at 13:30 Potassium Chloride (KCl) 20 meq Q12HR PO Last administered on 03/08/17 09:18; Admin Dose 20 MEQ; Start 03/08/17 at 09:00; Stop 03/08/17 at 15:52; Status DC Sodium Phosphate/ Sodium Chloride (Sodium Phosphate Inj/NS 250 ml Inj) 250 ml @ 42 mls/hr UNSCH PRN IV; Start 03/08/17 at 13:30 Vital Signs / I&O Vital Signs Date Time Temp Pulse Resp B/P Pulse Ox O2 Delivery O2 Flow Rate FiO2 03/09/17 08:02 89 80 03/09/17 06:00 78 03/09/17 04:00 80 03/09/17 04:00 97.5 71 13 124/60 89 03/09/17 04:00 71 03/09/17 04:00 92 80 03/09/17 02:00 70 03/09/17 00:10 88 85 03/09/17 00:00 97.5 71 13 142/70 88 03/09/17 00:00 75 03/09/17 00:00 71 03/08/17 22:00 69 03/08/17 21:00 88 75 03/08/17 20:00 75 03/08/17 20:00 98.4 71 13 119/68 91 03/08/17 20:00 71 03/08/17 18:00 69 03/08/17 16:18 91 70 03/08/17 16:00 69 03/08/17 16:00 98.6 69 16 144/80 91 03/08/17 16:00 75 03/08/17 14:00 69 03/08/17 12:00 75 03/08/17 12:00 89 03/08/17 12:00 99.1 77 18 126/67 91 03/08/17 11:59 90 75 03/08/17 10:00 78 03/08/17 09:08 90 75 I/O 03/08/17 03/08/17 03/08/17 03/09/17 03/09/17 03/09/17 07:00 15:00 23:00 07:00 15:00 23:00 Intake Total 2352 ml 1305 ml 887 ml 1061 ml Output Total 2400 ml 2000 ml 3250 ml 1500 ml Balance -48 ml -695 ml -2363 ml -439 ml IV Total 991 ml 617 ml 499 ml 479 ml Tube Feeding 801 ml 438 ml 388 ml 382 ml Other 560 ml 250 ml 200 ml Output Urine Total 2400 ml 2000 ml 3250 ml 1500 ml Stool Total 0 ml Physical Exam CARDIOVASCULAR: Regular rate and rhythm without murmurs, gallops, or rubs. RESPIRATORY: Breath sounds equal bilaterally. No accessory muscle use. GASTROINTESTINAL: Abdomen soft, non-tender, nondistended. MUSCULOSKELETAL: No cyanosis, or edema. Laboratory Laboratory Tests Test 03/08/17 03/08/17 03/09/17 18:07 18:49 05:22 Blood Gas Puncture Site RT RADIAL Blood Gas Patient Temperature 98.6 Blood Gas HCO3 44 mmol/L Blood Gas Base Excess 18.3 mmol/L Blood Gas Oxygen Saturation 88 % Arterial Blood pH 7.44 Arterial Blood Partial 66 mmHg Pressure CO2 Arterial Blood Partial 63 mmHg Pressure O2 Arterial Blood Oxygen Content 20.4 Vol % Arterial Blood 1.2 % Carboxyhemoglobin Arterial Blood Methemoglobin 1.2 % Blood Gas Hemoglobin 16.6 G/DL Oxygen Delivery Device VENTILATOR Blood Gas Ventilator Setting Blood Gas Inspired Oxygen 75 % Sodium Level 139 MEQ/L 140 MEQ/L Potassium Level 3.7 MEQ/L 5.0 MEQ/L Chloride Level 88 MEQ/L 87 MEQ/L Carbon Dioxide Level 44.0 MEQ/L 43.2 MEQ/L Anion Gap 7 MEQ/L 10 MEQ/L Blood Urea Nitrogen 44 MG/DL 51 MG/DL Creatinine 0.90 MG/DL 1.02 MG/DL Estimat Glomerular Filtration 84 ML/MIN 73 ML/MIN Rate Random Glucose 97 MG/DL 93 MG/DL Calcium Level 9.7 MG/DL 9.7 MG/DL White Blood Count 13.7 TH/MM3 Red Blood Count 5.66 MIL/MM3 Hemoglobin 17.4 GM/DL Hematocrit 52.0 % Mean Corpuscular Volume 91.7 FL Mean Corpuscular Hemoglobin 30.7 PG Mean Corpuscular Hemoglobin 33.4 % Concent Red Cell Distribution Width 15.7 % Platelet Count 157 TH/MM3 Mean Platelet Volume 10.2 FL Hematology Comments Phosphorus Level 3.9 MG/DL Magnesium Level 2.5 MG/DL Imaging Last Impressions Chest X-Ray 03/08/17 0600 Signed Impressions: Service Date/Time: February 02:25 - CONCLUSION: Slight improvement of bibasilar densities. Fernando Mack MD CT Angiography 03/02/17 1206 Signed Impressions: Service Date/Time: Thursday, March 02, 2017 13:46 - CONCLUSION: 1. No pulmonary embolus identified. 2. Small bilateral effusions with significant dependent atelectasis bilaterally. Riley Bob MD Lower Extremity Ultrasound 02/27/17 0000 Signed Impressions: Service Date/Time: Monday, February 27, 2017 08:31 - CONCLUSION: Normal examination. Nick Farrell MD Abdomen X-Ray 02/24/17 0000 Signed Impressions: Service Date/Time: Friday, February 24, 2017 10:43 - CONCLUSION: 1. Nasogastric tube just across the GE junction. 2. Minimal nonspecific bowel gas dilatation. Artur Bob MD FACR Assessment and Plan Problem List: (1) Ischemic dilated cardiomyopathy (2) CAD (coronary artery disease) (3) Hypertension (4) COPD (chronic obstructive pulmonary disease) (5) Atrial flutter (6) COPD with acute exacerbation (7) Acute respiratory failure Assessment and Plan on lasix gtt. excellent diuresis. follow Cr and K+ cont negative I/O balance. despite - 3.5 L, O2 requirement worsened, suggestive of intrinsic pulmonary issue, ie ARDS needs trach and peg tube Problem Qualifiers (1) Acute respiratory failure: Qualified Code: J96.02 - Acute respiratory failure with hypercapnia Slade Cole MD Mar 09, 2017 08:30
[2017-03-09] MEDS: methylPREDNISolone SOD SUCC 40 MG/1 ML VIAL IV PUSH SCH ×2 (09:20→20:29)
[2017-03-09] MEDS: ASPIRIN 325 MG TAB PO SCH (09:21)
[2017-03-09] MEDS: DOCUSATE SODIUM 100 MG/10 ML UDC PO SCH ×2 (09:22→20:28)
[2017-03-09] MEDS: LACTULOSE SYRUP 20 GM/30 ML CUP PO SCH ×2 (09:22→20:28)
[2017-03-09] MEDS: fentaNYL DRIP 250 ML IV SCH (09:23)
[2017-03-09] MEDS: CLOPIDOGREL 75 MG TAB PO SCH (09:23)
[2017-03-09] MEDS: SENNOSIDES SYRUP 8.8 MG/5 ML CUP PO SCH (09:23)
[2017-03-09] MEDS: PANTOPRAZOLE SODIUM 40 MG VIAL IV SCH (09:24)
[2017-03-09] MEDS: CHLORHEXIDINE 0.12% (ORAL KIT) 15 ML CUP MT SCH ×2 (09:25→20:29)
[2017-03-09] MEDS: LISINOPRIL 5 MG TAB PO SCH (09:29)
[2017-03-09 09:48] LABS: BLOOD GAS BASE EXCESS 22.9 mmol/L (-2-2); BLOOD GAS CARBOXYHEMOGLOBIN 1.3 % (0-4); BLOOD GAS HCO3 49 mmol/L (22-26); BLOOD GAS METHEMOGLOBIN 1.1 % (0-2); BLOOD GAS O2 HGB SATURATION 82 % (90-100); BLOOD GAS OXYGEN CONTENT 19.7 Vol % (12.0-20.0); BLOOD GAS PCO2 67 mmHg (38-42); BLOOD GAS PO2 51 mmHg (61-120); BLOOD GAS TOTAL HGB 17.1 G/DL (12.0-16.0); TEMP CORR TO 98.6
[2017-03-09 09:49] LABS: CRITICAL VALUE YES; OXYGEN DEVICE VENTILATOR
[2017-03-09 09:50] LABS: DRAW SITE LT RADIAL; FIO2 80 %; NUMBER OF ARTERIAL PUNCTURES 1; STAT NO; ULNAR PULSE PRESENT
--- NOTE | 2017-03-09 10:37 | PD.CONS ---
Consult Service Palliative Care Consult Requested By MD Livan Primary Care Physician Walter Ortiz Reason for Consultation a. To assist with evaluation and management of symptoms including:dyspnea, pain b. To assist medical decision maker(s) with: better understanding of current medical conditions; weighing benefits/burdens of medical treatment options; making medical treatment decisions. (Della Hoffman) HPI History of Present Illness This is a 66-year-old morbidly obese male who presented to the emergency department on 02/23/17 with complaints of shortness of breath times 2 weeks. He does have a history of COPD and is well. A history of CAD status post pacemaker placement. Mom the emergency department, he became lethargic, having respiratory distress. ABGs identified Hypercapnic as well as hypoxemic respiratory failure. He was intubated emergently with propofol for sedation. He was also started on antibiotics empirically and transferred to the medical ICU. Chest x-ray identified pulmonary edema as well as a suspected right pleural effusion. Through his course in the ICU. He has been aggressively diuresed and at this time remains on a Lasix drip. At this time in spite of aggressive ventilatory management remains hypercapnic and hypoxic. Per cardiology- O2 requirement worsened, suggestive of intrinsic pulmonary issue, ie ARDS. WBCs were noted as being elevated today and infectious disease has been consulted. A sedation vacation was attempted today in GCS 11T. In spite of aggressive mgmt - the vent settings continue to increase. this morning PEEP 12 FiO2 85 - O2 Sat 84... This afternoon .PEEP 14- FiO2 100% - Sats 89. ABG's pCO2 65; pO2 49 He is noted to be in A Flutter on monitor with frequent PVCs. He is not on pressors BP 125/58. Met with his in the afternoon - see comments in Plan. At the time of my visit, he is sedated with propofol and fentanyl. He does not respond to stimuli. He is on a ventilator and is receiving feedings via OG tube. (Della Hoffman) Review of Systems ROS Limitations: Clinical Condition, Intubated Respiratory: COMPLAINS OF: Shortness of breath Other ROS: information is obtained from review of records as patient is intubated and responsive and is unable to provide any information (Della Hoffman) Past Family Social History Coded Allergies: No Known Allergies (Verified , 02/23/17) Past Medical History COPD with chronic bronchitis, history of atrial flutter, ischemic dilated cardiopathy ejection fraction 20% CHF CAD, hypertension, sleep apnea, no CPAP, history of abdominal ulcer, arthritis Past Surgical History Permanent pacemaker- AICD- ejection fraction 20%- 2015 CABG 2000, stent to RCA, appendectomy 1998, ORIF to left forearm Reported Medications Lisinopril 5 mg daily Potassium 10 mEq twice a day. Furosemide 40 mg twice a day. Atorvastatin 40 mg daily Metoprolol, tartrate 50 mg twice a day Clopidogrel 75 mg daily Loratadine 10 mg grams daily Aspirin 325 mg daily. Omeprazole 20 mg daily Ipratropium bromide. INH Albuterol INH every 4 hours needed Vitamin D 3000 daily. Magnesium 500 daily. Ferrous fumarate daily. Vitamin C 1000 daily Current Medications Medications (Trade) Dose Ordered Sig/Luci Route Start Time Stop Time Status Last Admin Sodium Chloride 2 ml 2 ml UNSCH PRN IVF 02/23/17 13:30 03/04/17 20:52 (Diprivan 1000 Mg/100ml Inj) 100 ml @ 0 mls/hr TITRATE IV 02/23/17 14:30 03/09/17 09:25 (Protonix Inj) 40 mg DAILY IV 02/23/17 17:00 03/09/17 09:24 (Heparin Inj) 5,000 units Q12H SQ 02/23/17 17:00 03/09/17 04:24 Miscellaneous Information 1 Q361D XX 02/23/17 16:00 02/23/17 16:00 (Chlorhexidine 2% Cloth) Taper DAILY@04 TOP 02/24/17 04:00 02/20/18 03:59 03/08/17 04:00 (Chlorhexidine 2% Cloth) 3 pack UNSCH PRN TOP 02/23/17 16:00 (D50w (Vial) Inj) 25 ml UNSCH PRN IV PUSH 02/23/17 16:00 (Glucagon Inj) 1 mg UNSCH PRN OTHER 02/23/17 16:00 (NovoLIN R SUPPLEMENTAL SCALE) 1 Q6H SQ 02/23/17 17:00 02/24/17 12:05 (Aspirin) 325 mg DAILY PO 02/24/17 09:00 03/09/17 09:21 (Lipitor) 40 mg HS PO 02/23/17 21:00 03/08/17 20:46 (Plavix) 75 mg DAILY PO 02/24/17 09:00 03/09/17 09:23 (Senna Liq) 8.8 mg DAILY PO 02/24/17 09:00 03/09/17 09:23 Docusate Sodium 100 mg 100 mg Q12HR PO 02/24/17 09:00 03/09/17 09:22 (Rocephin Inj/NS Inj) 100 ml @ 200 mls/hr Q24H IV 02/25/17 14:00 03/08/17 13:24 (Lactulose Liq) 15 ml BID PO 02/27/17 09:00 03/09/17 09:22 (SoluMEDROL INJ) 40 mg BID IV PUSH 03/01/17 09:00 03/09/17 09:20 Water 250 ml 250 ml Q8HR G-TUBE 03/02/17 14:00 Hold 03/08/17 14:00 Levofloxacin/ Dextrose 100 ml @ 100 mls/hr Q24H IV 03/03/17 17:00 03/08/17 16:38 (fentaNYL DRIP) 250 ml @ 0 mls/hr TITRATE IV 03/04/17 01:00 03/09/17 09:23 (fentaNYL INJ) 50 mcg Q1H PRN IV PUSH 03/04/17 01:00 03/05/17 00:40 (Pill Splitter) 1 ea UNSCH PRN OTHER 03/06/17 15:00 Lisinopril 5 mg 5 mg DAILY PO 03/09/17 09:00 03/09/17 09:29 Furosemide 100 mg/ Sodium Chloride 100 ml @ 0 mls/hr CONTINUOUS IV 03/08/17 14:15 03/08/17 21:58 Potassium Chloride 100 ml @ 50 mls/hr Q2H PRN IV-CENTRAL 03/08/17 13:30 (KCl 20 Meq Premix Inj) 100 ml @ 50 mls/hr Q2H PRN IV 03/08/17 13:30 03/08/17 14:19 Potassium Bicarb/ Potassium Chloride 50 meq 50 meq UNSCH PRN PO 03/08/17 13:30 Potassium Chloride 100 ml @ 25 mls/hr UNSCH PRN IV-CENTRAL 03/08/17 13:30 Potassium Chloride 100 ml @ 50 mls/hr Q2H PRN IV 03/08/17 13:30 (Magnesium Sulfate Inj/NS Inj) 100 ml @ 50 mls/hr UNSCH PRN IV 03/08/17 13:30 Magnesium Oxide 800 mg 800 mg UNSCH PRN PO 03/08/17 13:30 (Magnesium Sulfate Inj/NS Inj) 100 ml @ 50 mls/hr UNSCH PRN IV 03/08/17 13:30 Potassium Phosphate 2000 mg 2,000 mg Q4H PRN PO 03/08/17 13:30 (Sodium Phosphate Inj/NS 250 ml Inj) 250 ml @ 42 mls/hr UNSCH PRN IV 03/08/17 13:30 (Peridex 0.12% Liq) 15 ml BID@08,20 MT 03/08/17 20:00 03/09/17 09:25 (K-Lyte Cl Eff) 50 meq Q12H PO 03/08/17 16:00 03/09/17 04:24 Family History Unable to attend at this time due to patients clinical status Substance Use Tobacco: 2 packs per day times 25 years Alcohol: One 6 pack per week Prescription med abuse: Denies Illicits: Denies Psychosocial History ; had 6 step children; 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; active in Yarsanism evangelical Spiritual/Cultural Factors Yarsanism (Della Hoffman) Living Will: Never completed Health Care Surrogate: Never completed Durable Power of Yoker Machine Operator: Never completed Health Care Surrogate(s): Brooke Doran - [phone] (home), or [phone] (cellvoicemail not set up) (Della Hoffman) Physical Exam Vital Signs Date Time Temp Pulse Resp B/P Pulse Ox O2 Delivery O2 Flow Rate FiO2 03/09/17 08:02 89 80 03/09/17 06:00 78 03/09/17 04:00 80 03/09/17 04:00 97.5 71 13 124/60 89 03/09/17 04:00 71 03/09/17 04:00 92 80 03/09/17 02:00 70 03/09/17 00:10 88 85 03/09/17 00:00 97.5 71 13 142/70 88 03/09/17 00:00 75 03/09/17 00:00 71 03/08/17 22:00 69 03/08/17 21:00 88 75 03/08/17 20:00 75 03/08/17 20:00 98.4 71 13 119/68 91 03/08/17 20:00 71 03/08/17 18:00 69 03/08/17 16:18 91 70 03/08/17 16:00 69 03/08/17 16:00 98.6 69 16 144/80 91 03/08/17 16:00 75 03/08/17 14:00 69 03/08/17 12:00 75 03/08/17 12:00 89 03/08/17 12:00 99.1 77 18 126/67 91 03/08/17 11:59 90 75 03/08/17 03/09/17 19:00 07:00 Intake Total 1305 ml 1948 ml Output Total 2000 ml 4750 ml Balance -695 ml -2802 ml IV Total 617 ml 978 ml Tube Feeding 438 ml 770 ml Other 250 ml 200 ml Output Urine Total 2000 ml 4750 ml Stool Total 0 ml Exam CONSTITUTIONAL/GENERAL: This is an adequately nourished patient,sedated on the vent TUBES/LINES/DRAINS:central line, OG tube, orotracheal tube, catheter, SKIN: No jaundice, rashes, or lesions. Ecchymoses on upper extremities. skin tear noted Skin temperature appropriate. Not diaphoretic. HEAD: Atraumatic. Normocephalic. EYES: Pupils equal and round and reactive. Extraocular motions intact. No scleral icterus. No injection or drainage. Fundi not examined. ENT:Throat without visible erythema, exudates, masses, or lesions. NECK: Trachea midline. Supple, CARDIOVASCULAR: irregular rate and rhythm w/o murmurs, gallops, or rubs. No JVD. Peripheral pulses symmetric. RESPIRATORY/CHEST: Symmetric, unlabored respirations. course coarse breath sounds anteriorly, diminished posterior - vent dependent GASTROINTESTINAL: Abdomen soft, round, No hepato-splenomegaly, or palpable masses. Bowel sounds present. GENITOURINARY: Without palpable bladder distension. catheter in place. MUSCULOSKELETAL: Extremities without clubbing, cyanosis, or edema. No mottling or clubbing. LYMPHATICS: No palpable cervical or supraclavicular adenopathy. NEUROLOGICAL: sedated on the vent; PSYCHIATRIC: unable to assess (Della Hoffman) Diagnostic Tests Laboratory Laboratory Tests Test 03/06/17 03/07/17 03/07/17 03/08/17 16:44 05:54 14:10 04:30 Blood Gas Puncture Site RT RADIAL RT RADIAL Blood Gas Patient Temperature 98.6 98.6 Blood Gas HCO3 38 mmol/L 38 mmol/L (22-26) (22-26) Blood Gas Base Excess 13.1 mmol/L 13.3 mmol/L (-2-2) (-2-2) Blood Gas Oxygen Saturation 86 % (90-100) 86 % (90-100) Arterial Blood pH 7.44 7.45 (7.380-7.420) (7.380-7.420) Arterial Blood Partial 57 mmHg (38-42) 56 mmHg (38-42) Pressure CO2 Arterial Blood Partial 58 mmHg 58 mmHg Pressure O2 (61-120) (61-120) Arterial Blood Oxygen Content 19.5 Vol % 19.2 Vol % (12.0-20.0) (12.0-20.0) Arterial Blood 1.2 % (0-4) 1.2 % (0-4) Carboxyhemoglobin Arterial Blood Methemoglobin 1.2 % (0-2) 1.2 % (0-2) Blood Gas Hemoglobin 16.2 G/DL 16.0 G/DL (12.0-16.0) (12.0-16.0) Oxygen Delivery Device VENTILATOR VENTILATOR Blood Gas Ventilator Setting PC/AC PC/AC Blood Gas Inspired Oxygen 70 % 75 % Sodium Level 141 MEQ/L 139 MEQ/L (136-145) (136-145) Potassium Level 3.5 MEQ/L 3.2 MEQ/L (3.5-5.1) (3.5-5.1) Chloride Level 96 MEQ/L 91 MEQ/L (98-107) (98-107) Carbon Dioxide Level 37.6 MEQ/L 42.5 MEQ/L (21.0-32.0) (21.0-32.0) Anion Gap 7 MEQ/L (5-15) 6 MEQ/L (5-15) Blood Urea Nitrogen 39 MG/DL (7-18) 40 MG/DL (7-18) Creatinine 0.79 MG/DL 0.75 MG/DL (0.60-1.30) (0.60-1.30) Estimat Glomerular Filtration 98 ML/MIN (>89) 104 ML/MIN Rate (>89) Random Glucose 127 MG/DL 126 MG/DL (74-106) (74-106) Calcium Level 9.8 MG/DL 9.5 MG/DL (8.5-10.1) (8.5-10.1) Phosphorus Level 4.3 MG/DL 4.1 MG/DL (2.5-4.9) (2.5-4.9) Magnesium Level 2.4 MG/DL 2.4 MG/DL (1.5-2.5) (1.5-2.5) White Blood Count 13.9 TH/MM3 (4.0-11.0) Red Blood Count 5.09 MIL/MM3 (4.50-5.90) Hemoglobin 15.6 GM/DL (13.0-17.0) Hematocrit 47.5 % (39.0-51.0) Mean Corpuscular Volume 93.2 FL (80.0-100.0) Mean Corpuscular Hemoglobin 30.6 PG (27.0-34.0) Mean Corpuscular Hemoglobin 32.8 % Concent (32.0-36.0) Red Cell Distribution Width 16.0 % (11.6-17.2) Platelet Count 131 TH/MM3 (150-450) Mean Platelet Volume 9.4 FL (7.0-11.0) Test 03/08/17 03/08/17 03/08/17 03/09/17 05:22 18:07 18:49 05:22 Blood Gas Puncture Site RT RADIAL RT RADIAL Blood Gas Patient Temperature 98.6 98.6 Blood Gas HCO3 43 mmol/L 44 mmol/L (22-26) (22-26) Blood Gas Base Excess 17.1 mmol/L 18.3 mmol/L (-2-2) (-2-2) Blood Gas Oxygen Saturation 88 % (90-100) 88 % (90-100) Arterial Blood pH 7.43 7.44 (7.380-7.420) (7.380-7.420) Arterial Blood Partial 66 mmHg (38-42) 66 mmHg (38-42) Pressure CO2 Arterial Blood Partial 65 mmHg 63 mmHg Pressure O2 (61-120) (61-120) Arterial Blood Oxygen Content 19.8 Vol % 20.4 Vol % (12.0-20.0) (12.0-20.0) Arterial Blood 1.2 % (0-4) 1.2 % (0-4) Carboxyhemoglobin Arterial Blood Methemoglobin 1.4 % (0-2) 1.2 % (0-2) Blood Gas Hemoglobin 16.1 G/DL 16.6 G/DL (12.0-16.0) (12.0-16.0) Oxygen Delivery Device VENTILATOR VENTILATOR Blood Gas Ventilator Setting PC/AC Blood Gas Inspired Oxygen 80 % 75 % Sodium Level 139 MEQ/L 140 MEQ/L (136-145) (136-145) Potassium Level 3.7 MEQ/L 5.0 MEQ/L (3.5-5.1) (3.5-5.1) Chloride Level 88 MEQ/L 87 MEQ/L (98-107) (98-107) Carbon Dioxide Level 44.0 MEQ/L 43.2 MEQ/L (21.0-32.0) (21.0-32.0) Anion Gap 7 MEQ/L (5-15) 10 MEQ/L (5-15) Blood Urea Nitrogen 44 MG/DL (7-18) 51 MG/DL (7-18) Creatinine 0.90 MG/DL 1.02 MG/DL (0.60-1.30) (0.60-1.30) Estimat Glomerular Filtration 84 ML/MIN (>89) 73 ML/MIN (>89) Rate Random Glucose 97 MG/DL 93 MG/DL (74-106) (74-106) Calcium Level 9.7 MG/DL 9.7 MG/DL (8.5-10.1) (8.5-10.1) White Blood Count 13.7 TH/MM3 (4.0-11.0) Red Blood Count 5.66 MIL/MM3 (4.50-5.90) Hemoglobin 17.4 GM/DL (13.0-17.0) Hematocrit 52.0 % (39.0-51.0) Mean Corpuscular Volume 91.7 FL (80.0-100.0) Mean Corpuscular Hemoglobin 30.7 PG (27.0-34.0) Mean Corpuscular Hemoglobin 33.4 % Concent (32.0-36.0) Red Cell Distribution Width 15.7 % (11.6-17.2) Platelet Count 157 TH/MM3 (150-450) Mean Platelet Volume 10.2 FL (7.0-11.0) Hematology Comments Phosphorus Level 3.9 MG/DL (2.5-4.9) Magnesium Level 2.5 MG/DL (1.5-2.5) Test 03/09/17 09:38 Blood Gas Puncture Site LT RADIAL Blood Gas Patient Temperature 98.6 Blood Gas HCO3 49 mmol/L (22-26) Blood Gas Base Excess 22.9 mmol/L (-2-2) Blood Gas Oxygen Saturation 82 % (90-100) Arterial Blood pH 7.48 (7.380-7.420) Arterial Blood Partial 67 mmHg (38-42) Pressure CO2 Arterial Blood Partial 51 mmHg Pressure O2 (61-120) Arterial Blood Oxygen Content 19.7 Vol % (12.0-20.0) Arterial Blood 1.3 % (0-4) Carboxyhemoglobin Arterial Blood Methemoglobin 1.1 % (0-2) Blood Gas Hemoglobin 17.1 G/DL (12.0-16.0) Oxygen Delivery Device VENTILATOR Blood Gas Ventilator Setting Blood Gas Inspired Oxygen 80 % (Della Hoffman) Result Diagram: 03/09/1752103/09/17 05 Imaging Last 72 hours Impressions Chest X-Ray 03/08/17 0600 Signed Impressions: Service Date/Time: February 02:25 - CONCLUSION: Slight improvement of bibasilar densities. Fernando Mack MD (Della Hoffman) Patient/Family Conference Present at Family Conference: Brooke Doran - . Family Conference Location: Bedside Issues Discussed: * Palliative care role, purpose, approach * Additional medical, psychosocial, and spiritual history * Patients general health, functional status, and cognitive changes in the months leading up to the current hospitalization * Patient/family understanding of the current medical problems * Patient/family understanding of prognosis * Patients goals of care as best understood from advance directives and/or conversations and/or values * Current medical treatment options and benefits/burdens of those options * Likely scenarios comparing ongoing aggressive care with a transition to comfort measures only * Questions answered to the best of my ability * Palliative care contact information provided (Della Hoffman) Assessment and Plan Disease Oriented Problem List: (1) COPD with acute exacerbation (2) Ischemic dilated cardiomyopathy (3) Hypertension (4) Atrial flutter (5) COPD (chronic obstructive pulmonary disease) (6) Acute respiratory failure Symptom Scale: (1) Pain Comment: History of arthritis with shoulder ORIF (2) Dyspnea Comment: COPD exacerbation, now vent dependent Pertinent Non-Medical Issues Psychosocial: 34ys- had 6 step children; 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 Code Status: Full Code Plan Decision Maker: Brooke Doran, , or [phone] Code Status: full code at this time - does not want to make any decisions until after Easter Family Discussion: Brooke is very distraught re his decline. She is a strong Yarsanism woman and believes that God will heal his lungs. She does not want him to go to a care home or for him to have a trach for "a long time". She states she is not ready to let him go and right now doesn't want to make any decisions before Easter - hoping for a miracle. She states that he woke up yesterday, saw her and shed a tear. She is hopeful that he will recover. She is provided as much information relative to the gravity of his illness and likelihood for recovery: elevated WBC and likely infection; high pressure on vent; declining O2 status; declining BP's; cardiac arrhythmia. She is overwhelmed by the information and returns to the Bible for comfort. Discussed CODE STATUS - allowing a natural if his heart were to stop versus CPR and resuscitation. He also has an AICD- she does not want that discontinued at this time. She states she will talk w her family but feels they would agree to no code status - States she will call me with her answer. Symptoms: pain, dyspnea Palliative care phone number provided - will follow during hospital stay. ( Della Hoffman) Thank you for the opportunity to participate in the care of Mr. London. (Della Hoffman) Attestation To help prompt me to consider important information that might be impacting today's encounter and assessment, information from prior notes written by myself or my colleagues may have been "brought forward" into today's note. My signature on this note, however, is an attestation that I personally performed the exam, history, and/or decision-making noted today, and, unless otherwise indicated, the interactions with patient, family, and staff as well as the review of records all occurred today. I also attest that the listed assessment and stated plan reflect my best clinical judgment today based on the combination of historical information, prior notes, and today's exam/ interactions. When time spent is documented, it refers only to time spent today by the signer, or if indicated, combined time spent today by collaborating physician/nurse practitioner. (Della Hoffman) Collaborating MD Comments . Chart reviewed. Cased discussed with palliative care SHIP WIRER. Above SHIP WIRER note reviewed and I concur. . (Ishmael Wiley MD) Della Hoffman Mar 09, 2017 10:37 Ishmael Wiley MD April 23, 2017 15:14
--- NOTE | 2017-03-09 10:44 | PD.CONS ---
History of Present Illness Service Infectious disease Consult Requested By Dr. Roe Licona Reason for Consult Evaluate patient with leukocytosis Primary Care Physician Walter Ortiz Diagnoses: History of Present Illness Patient seen and examined. Records reviewed. Patient is a 66-year-old male, brought into the hospital for further evaluation of progressive shortness of breath. He apparently has had shortness of breath for 2 weeks prior to admission, and it had progressively worsened so he presented to the hospital for further evaluation and treatment. He was in significant distress, and he ended up getting intubated. Patient has remained on the vent since. His chest x-ray showed cardiomegaly and vascular congestion with no overt failure. He was treated as a COPD exacerbation, and was started on bronchodilators, steroids, and empiric antibiotics. Sputum culture had normal tiffany. He was also being diuresed, and there is a history of dilated cardiomyopathy. Patient since around March 02 has had problem with increasing oxygen requirement. He's had a CTA which did not show any pulmonary embolism but it did show some small effusion. Currently sedated on the vent, and FiO2 is up 0.85, and PEEP of 12. He had an episode of low-grade fever a while back. For the last 2 days his white count had gone up to 13,000. Patient had a central line that has been removed. He has a [facility] catheter in place. He has no diarrhea. Patient has been getting Levaquin since admission, and Rocephin since February 25. Infectious disease consultation has been requested to evaluate his leukocytosis. Review of Systems ROS Limitations: Clinical Condition, Intubated Past Family Social History Allergies: Coded Allergies: No Known Allergies (Verified , 02/23/17) Past Medical History COPD Coronary artery disease with stent to the RCA Cardiomyopathy Arthritis Sleep apnea Hyperlipidemia. Past Surgical History CABG Appendectomy Fracture, and has hardware in left forearm. Defibrillator/pacer placement. Active Ordered Medications Potassium Senna Diprivan Levaquin Prinivil Magnesium Heparin Insulin Lactulose Fentanyl Lasix Rocephin Plavix Colace Albuterol Aspirin Lipitor Social History Smokes 1/2 ppd Drinks beer 6 pack weekly No illicit drugs Physical Exam Vital Signs Vital Signs Date Time Temp Pulse Resp B/P Pulse Ox O2 Delivery O2 Flow Rate FiO2 03/09/17 08:02 89 80 03/09/17 06:00 78 03/09/17 04:00 80 03/09/17 04:00 97.5 71 13 124/60 89 03/09/17 04:00 71 03/09/17 04:00 92 80 03/09/17 02:00 70 03/09/17 00:10 88 85 03/09/17 00:00 97.5 71 13 142/70 88 03/09/17 00:00 75 03/09/17 00:00 71 03/08/17 22:00 69 03/08/17 21:00 88 75 03/08/17 20:00 75 03/08/17 20:00 98.4 71 13 119/68 91 03/08/17 20:00 71 03/08/17 18:00 69 03/08/17 16:18 91 70 03/08/17 16:00 69 03/08/17 16:00 98.6 69 16 144/80 91 03/08/17 16:00 75 03/08/17 14:00 69 03/08/17 12:00 75 03/08/17 12:00 89 03/08/17 12:00 99.1 77 18 126/67 91 03/08/17 11:59 90 75 Physical Exam GENERAL: This is a well-nourished, well-developed male, sedated, on the vent, not in respiratory distress. SKIN: Warm and moist. No generalized rash. No ecchymosis. HEAD: Atraumatic. Normocephalic. No temporal or scalp tenderness. EYES: [place] conjunctivae. Pupils equal round and reactive. No scleral icterus. No injection or drainage. ENT: Nose without bleeding, or purulent drainage. Endotracheal tube is in the mouth. NECK: Trachea midline. No JVD or lymphadenopathy. Supple, nontender, no meningeal signs. CARDIOVASCULAR: Regular rate and rhythm without murmurs, gallops, or rubs. His monitor shows atrial flutter RESPIRATORY: Coarse breath sounds bilaterally. No wheezes, rales, or rhonchi. Decreased at the bases. GASTROINTESTINAL: Abdomen soft, obese, nondistended, no reaction to deep palpation. Bowel sounds are present. No hepato-splenomegaly, or palpable masses. No guarding. MUSCULOSKELETAL: Lower extremities without clubbing, cyanosis, or edema. His upper extremities are edematous. No joint effusion. Hands and feet are well perfused. No mottling. NEUROLOGICAL: Sedated. No Babinski PSYCH: Unable to assess LINE: PIV with no evidence of infection : Kaiser catheter in place, with small monitor of sediment Laboratory Laboratory Tests Test 03/08/17 03/08/17 03/09/17 03/09/17 18:07 18:49 05:22 09:38 Blood Gas Puncture Site RT RADIAL LT RADIAL Blood Gas Patient Temperature 98.6 98.6 Blood Gas HCO3 44 49 Blood Gas Base Excess 18.3 22.9 Blood Gas Oxygen Saturation 88 82 Arterial Blood pH 7.44 7.48 Arterial Blood Partial 66 67 Pressure CO2 Arterial Blood Partial 63 51 Pressure O2 Arterial Blood Oxygen Content 20.4 19.7 Arterial Blood 1.2 1.3 Carboxyhemoglobin Arterial Blood Methemoglobin 1.2 1.1 Blood Gas Hemoglobin 16.6 17.1 Oxygen Delivery Device VENTILATOR VENTILATOR Blood Gas Ventilator Setting Blood Gas Inspired Oxygen 75 80 Sodium Level 139 140 Potassium Level 3.7 5.0 Chloride Level 88 87 Carbon Dioxide Level 44.0 43.2 Anion Gap 7 10 Blood Urea Nitrogen 44 51 Creatinine 0.90 1.02 Estimat Glomerular Filtration 84 73 Rate Random Glucose 97 93 Calcium Level 9.7 9.7 White Blood Count 13.7 Red Blood Count 5.66 Hemoglobin 17.4 Hematocrit 52.0 Mean Corpuscular Volume 91.7 Mean Corpuscular Hemoglobin 30.7 Mean Corpuscular Hemoglobin 33.4 Concent Red Cell Distribution Width 15.7 Platelet Count 157 Mean Platelet Volume 10.2 Hematology Comments Phosphorus Level 3.9 Magnesium Level 2.5 Result Diagram: 03/09/17 0522 03/09/17 0522 Imaging RADIOLOGY STUDIES/FILMS REVIEWED Chest X-Ray 03/08/17 0600 Signed Impressions: Service Date/Time: February 02:25 - CONCLUSION: Slight improvement of bibasilar densities. Fernando Mack MD CT Angiography 03/02/17 1206 Signed Impressions: Service Date/Time: Thursday, March 02, 2017 13:46 - CONCLUSION: 1. No pulmonary embolus identified. 2. Small bilateral effusions with significant dependent atelectasis bilaterally. Riley Bob MD Lower Extremity Ultrasound 02/27/17 0000 Signed Impressions: Service Date/Time: Monday, February 27, 2017 08:31 - CONCLUSION: Normal examination. Nick Farrell MD Abdomen X-Ray 02/24/17 0000 Signed Impressions: Service Date/Time: Friday, February 24, 2017 10:43 - CONCLUSION: 1. Nasogastric tube just across the GE junction. 2. Minimal nonspecific bowel gas dilatation. Artur Bob MD FACR Assessment and Plan Assessment and Plan IMPRESSION Leukocytosis, etiology? - likely reactive, ?due to his pulmonary status, has had increased O2 requirement - ?New infection, he has not been febrile - CXR looks better - ? - has no line - no diarrhea Respiratory failure, CHF, ARDS - has known ischemic cardiomyopathy Known COPD Obesity RECOMMENDATION Sputum G/S C/S UA and C/S Follow CBC Stop Levaquin and Rocephin Diflucan Monitor progress Further recommendation to follow once workup completed Will follow along with you Thank you for this consultation Heather Young MD Mar 09, 2017 10:44
[2017-03-09 11:04] LABS: BLOOD GAS BASE EXCESS 23.5 mmol/L (-2-2); BLOOD GAS CARBOXYHEMOGLOBIN 1.3 % (0-4); BLOOD GAS HCO3 49 mmol/L (22-26); BLOOD GAS METHEMOGLOBIN 1.3 % (0-2); BLOOD GAS O2 HGB SATURATION 80 % (90-100); BLOOD GAS PCO2 65 mmHg (38-42); BLOOD GAS PO2 49 mmHg (61-120); BLOOD GAS TOTAL HGB 16.9 G/DL (12.0-16.0); TEMP CORR TO 98.6
[2017-03-09 11:05] LABS: CRITICAL VALUE YES; OXYGEN DEVICE VENTILATOR
[2017-03-09 11:06] LABS: DRAW SITE RT RADIAL; FIO2 85 %; NUMBER OF ARTERIAL PUNCTURES 1; STAT YES; ULNAR PULSE PRESENT
[2017-03-09] MEDS: FLUCONAZOLE 100 MG TAB PO SCH (12:24)
[2017-03-09 12:44] LABS: BACTERIA, URINE RARE /hpf; BLOOD, URINE NEG (NEG); GLUCOSE,URINE NEG (NEG); HYALINE CAST, URINE 6 /lpf (RARE); KETONE, URINE NEG (NEG); NITRITE,URINE NEG (NEG); URINE COLOR YELLOW (YELLW/STRAW)
[2017-03-09 12:45] LABS: COMMENT (UR) CATH-CULTURE IND; CULTURE IF INDICATED CATH CULTURE IND
[2017-03-09] MEDS ORDERED: PHENYLEPHRINE 40 MG/D5W 496 ML ADMIX IV SCH ×2 (15:30)
[2017-03-09] MEDS ORDERED: TERBUTALINE INJ 1 MG/ML AMP SQ PRN (15:30)
--- NOTE | 2017-03-09 16:14 | RADRPT ---
EXAM DATE/TIME: 03/09/2017 15:21 [facility] COMPARISON: CHEST SINGLE AP, March 08, 2017, 2:25. INDICATIONS : Pneumothorax MEDICAL HISTORY : Hypercholesterolemia. Hypertension Chronic obstructive pulmonary disease. SURGICAL HISTORY : CABG. Pacemaker. ENCOUNTER: Initial ACUITY: 1 day PAIN SCORE: Non-responsive. LOCATION: Bilateral chest FINDINGS: Cardiomegaly is noted, bilateral lower lobe consolidation and small effusions. This is stable. Pacer leads an EKG wires are present. Endotracheal tube tip at the inferior margin of the clavicles. NG tub e courses beneath the diaphragm. Median sternotomy wires and mediastinal clips are noted. I do not se e a pneumothorax. CONCLUSION: No definite pneumothorax. Jayro aBrry MD on March 09, 2017 at 16:12 Board Certified Radiologist. This report was verified electronically.
[2017-03-09 16:56] LABS: BLOOD GAS BASE EXCESS 18.6 mmol/L (-2-2); BLOOD GAS CARBOXYHEMOGLOBIN 1.2 % (0-4); BLOOD GAS HCO3 44 mmol/L (22-26); BLOOD GAS METHEMOGLOBIN 1.3 % (0-2); BLOOD GAS O2 HGB SATURATION 93 % (90-100); BLOOD GAS OXYGEN CONTENT 21.6 Vol % (12.0-20.0); BLOOD GAS PCO2 66 mmHg (38-42); BLOOD GAS PO2 82 mmHg (61-120); BLOOD GAS TOTAL HGB 16.6 G/DL (12.0-16.0); TEMP CORR TO 98.6
[2017-03-09 16:57] LABS: CRITICAL VALUE YES; OXYGEN DEVICE VENTILATOR
[2017-03-09 16:59] LABS: DRAW SITE RT RADIAL; FIO2 100 %; NUMBER OF ARTERIAL PUNCTURES 1; STAT NO; ULNAR PULSE PRESENT
--- NOTE | 2017-03-09 18:23 | HHI.CCPN ---
Subjective Remarks/Hospital Course The patient is a 66-year-old male with past medical history of COPD, cardiomyopathy, hypertension, gastroesophageal reflux disease, hyperlipidemia and coronary artery disease. The patient presented to [facility] ED with a 2-week history of progressive worsening shortness of breath. On arrival to the ED he was initially placed on a non-rebreather mask and ABG was performed which showed acute hypercapnic respiratory failure with a pH of 7.14, CO2 121, pAO2 141, bicarb 40, sats 93%. His laboratory data significant for hyperkalemia with potassium level 6.0 and acute renal failure with a BUN of 43 and creatinine 2.07 respectively. The chest x-ray showed cardiomegaly and findings of vascular congestion without overt failure. In the ED the patient was intubated with etomidate and rocuronium and placed on full mechanical ventilation. In addition, he is scheduled to receive 10 units IV regular insulin, 1 amp of D50 and calcium gluconate for hyperkalemia. He received cefepime, azithromycin, Solu-Medrol 125 milligrams IV push and bronchodilator treatment. When seen the patient is on Diprivan infusion for sedation and full mechanical ventilation. Per the patient is not on any oxygen at home and he occasionally smokes cigarettes. 02/24 Patient is intubated and sedated with Diprivan and Fentanyl. Switched to PC/ AC with RR 12, IP:24, IT:1.06, PEEP: 8 and FIO2 100%. CXR this morning showed interval development of bilateral perihilar and lower lung zone airspace opacity he was given Lasix 60mg total overnight. 02/25 Patient remains sedated and intubated with Diprivan and Fentanyl. Afebrile.On PC/AC with RR 12, IP:22, IT:1.10, PEEP:10, FIO2 70%. Afebrile. Renal function worse today with Cr: 1.90 from 1.72 UO: 1150ml in 24 hrs 02/26 No acute events overnight. Sedated with Fentanyl and Diprivan and intubated. Afebrile. His O2 requirements is less now on PC/AC with IP:22, IT: 1.1 with PEEP: 10 and FIO2 55%. Renal function improving with Cr: 1.42 today from 1.90. Tolerating tube feeds. 02/27 Patient remains sedated with Diprivan and Fentanyl infusion and intubated. Afebrile. 02/28: Remains sedated, orally intubated on mechanical ventilation. Being diuresed with Bumex. Tolerating tube feeds. 03/01: Remains sedated, orally intubated on mechanical ventilation. Being diabetes. Remains on PEEP of 10 and FiO2 60% 03/02 Patient remains sedated with Diprivan and Fentanyl and intubated. On PC/AC with PEEP: 10 and FIO2 80% overnight and sats 93-94%. Afebrile. 03/03: The patient remains on high respiratory requirements PEEP of 10, and FiO2 70%. 03/04: Tmax 99.9. Overnight the patient was noted to have desaturations the patient received a bolus of midazolam and fentanyl for ventilator dyssynchrony. The patient was redosed with Diamox with approximately 2.5 L diuresis in the last 12 hours. The patient continues on an FiO2 of 70% with PEEP of 10 to maintain an O2 sat of 90%. 03/05: Afebrile. Patient's FiO2 remains at 60% to maintain O2sat ranging in 92% . Future plans for tracheostomy discussed with when ventilator requirements are decreased. Patient currently is on a PEEP of 10. Patient receiving multiple doses of diuretics chest x-ray still showing increased vascular congestion. Cardiology following metalazone added to medication regimen per cardiology for diuresis. 03/06: Patient's O2 requirements were increased overnight to FiO2 of 90%. The patient's FiO2 has been decreased now currently to 70% O2 sat is 90% ABG is pending. The patient's diuresis effective, 1 kg weight loss in 24 hours. 03/07: The patient continues to have effective diuresis. The patient's O2 requirements currently FiO2 is 70% to maintain a sat of 90-91%. Discussion with Ms. London yesterday, she would like to discuss with palliative team goals of care. Palliative care consult initiated. 03/08: The patient was less responsive to diuretics today, positive weight balance last 24 hours. The patient was placed on a Lasix infusion, noted occasional PVCs on telemetry. Patient potassium repletion ongoing, schedule potassium PO intake increased to 50 mEq twice a day. Free water flushes placed on hold, was sodium level 145 will continue to monitor. Chest x-ray shows slight improvement. Continued management of ventilator settings ARDS protocol, maintaining PaO2 60 or greater and adjusting vent settings based on PaO2. Sedation vacation attempted today by MEDICAL DIRECTOR, GCS 11T. Noted WBC elevation today ID consulted. 03/09: Today the patient was noted to have increasing FiO2 requirements with a PaO2 of 61. FiO2 was increased to 100%, PEEP was gradually increased to 12, then 14. The patient subsequently became hypotensive, likely due to increasing PEEP, but chest x-ray also obtained to rule out pneumothorax which was clear. The patient subsequently was laced on phenylephrine low-dose 20 mcgs which was eventually weaned off. The patient was placed on PEEP at 7 and FiO2 of 100%, sedation was weaned to lower dose. Palliative care also discussed with goals of care and the patient was made DNR. Objective Vital Signs Date Time Temp Pulse Resp B/P Pulse Ox O2 Delivery O2 Flow Rate FiO2 03/09/17 16:24 97 100 03/09/17 16:00 99.8 87 14 142/76 Intake and Output 03/08/17 03/08/17 03/09/17 08:00 16:00 00:00 Intake Total 2352 ml 1305 ml 887 ml Output Total 2400 ml 2000 ml 3250 ml Balance -48 ml -695 ml -2363 ml Result Diagram: 03/09/17 0522 03/09/17 0522 Other Results Laboratory Tests Test 03/09/17 03/09/17 03/09/17 09:38 10:45 16:45 Blood Gas Puncture Site LT RADIAL RT RADIAL RT RADIAL Blood Gas Patient Temperature 98.6 98.6 98.6 Blood Gas HCO3 49 mmol/L 49 mmol/L 44 mmol/L (22-26) (22-26) (22-26) Blood Gas Base Excess 22.9 mmol/L 23.5 mmol/L 18.6 mmol/L (-2-2) (-2-2) (-2-2) Blood Gas Oxygen Saturation 82 % (90-100) 80 % (90-100) 93 % (90-100) Arterial Blood pH 7.48 7.49 7.44 (7.380-7.420) (7.380-7.420) (7.380-7.420) Arterial Blood Partial 67 mmHg (38-42) 65 mmHg (38-42) 66 mmHg (38-42) Pressure CO2 Arterial Blood Partial 51 mmHg 49 mmHg 82 mmHg Pressure O2 (61-120) (61-120) (61-120) Arterial Blood Oxygen Content 19.7 Vol % 19.0 Vol % 21.6 Vol % (12.0-20.0) (12.0-20.0) (12.0-20.0) Arterial Blood 1.3 % (0-4) 1.3 % (0-4) 1.2 % (0-4) Carboxyhemoglobin Arterial Blood Methemoglobin 1.1 % (0-2) 1.3 % (0-2) 1.3 % (0-2) Blood Gas Hemoglobin 17.1 G/DL 16.9 G/DL 16.6 G/DL (12.0-16.0) (12.0-16.0) (12.0-16.0) Oxygen Delivery Device VENTILATOR VENTILATOR VENTILATOR Blood Gas Ventilator Setting Blood Gas Inspired Oxygen 80 % 85 % 100 % Imaging Last Impressions Chest X-Ray 02/28/17 0600 Signed Impressions: Service Date/Time: Tuesday, February 28, 2017 03:29 - CONCLUSION: No change in the pulmonary edema. Garrick Hinton Jr., MD Lower Extremity Ultrasound 02/27/17 0000 Signed Impressions: Service Date/Time: Monday, February 27, 2017 08:31 - CONCLUSION: Normal examination. Nick Farrell MD Abdomen X-Ray 02/24/17 0000 Signed Impressions: Service Date/Time: Friday, February 24, 2017 10:43 - CONCLUSION: 1. Nasogastric tube just across the GE junction. 2. Minimal nonspecific bowel gas dilatation. Artur Bob MD FACR Objective Remarks GENERAL: Patient is 66 yo sedation off, responding to commands. No agitation noted as previously described SKIN: Warm and dry. HEAD: Normocephalic. EYES: No scleral icterus. No injection or drainage. NECK: Supple, trachea midline. No JVD or lymphadenopathy. Patient has multiple carious sharp teeth. No bleeding noted, gauze bite block removed CARDIOVASCULAR: Regular rate and rhythm without murmurs, gallops, or rubs. RESPIRATORY: On mechanical ventilation, orally intubated, Breath sounds equal bilaterally. Coarse BS GASTROINTESTINAL: Abdomen soft, non-tender, nondistended. OGT, tube feedings infusing MUSCULOSKELETAL: 2+ bilateral edema in upper extremities. Neuro: [id number]., responding to yes and no questions Urinary Catheter: Yes [employer] insert reason: ICU Pt Getting Diuretics Date of Removal: Mar 04, 2017 Line: Central Venous Catheter Side: Right A/P Assessment and Plan 1. Acute hypercapnic and hypoxemic respiratory failure. 2. COPD exacerbation. 3. Acute renal failure. 4. Hyperkalemia. 5. Obstructive sleep apnea and morbid obesity. 6. Ischemic dilated Cardiomyopathy. S/P AICD 03/2015 7. History of coronary artery disease. 8. Gastroesophageal reflux disease. 9. Hypertension. 10. Hyperlipidemia. 11 Pulm edema 12. Acute on chronic systolic and diastolic CHF 13. Pulmonary hypertension Plan: Neuro: On Diprivan and Fentanyl infusion for sedation. Resume daily sedation vacation. CV: Metoprolol XL changed to Lopressor BP keep MAP>65mmHg On aspirin 325 milligrams p.o. daily and Plavix 75 mg p.o. daily. 01/2017 Echo showed EF 40-45%, nl LV diastolic function, No RWMA Cardiology following-Dr. Cole Pulm: On PC/AC RR 12, IP:22, IT:1.1 PEEP: 10, FIO2: 60%, decrease FIO2 as kristie Continue with vent support and maintain sats above 92%. CXR-bilateral consolidation in bases, atelectasis, possible effusions Bronchodilators every 4 hours, Solu-Medrol 40 mg IV BID. Pulm-Dr. Lashell Padron following CTA chest showed no PE, small pleural effusions ETT, day 13-plan for tracheostomy, ventilatory requirements decreased PEEP 7 , if sustained, will consult general surgery for tracheostomy : Monitor renal function Is and Os and avoid nephrotoxins. Electrolytes replacement per protocol. Free water 250ml Q8 placed on hold, monitor sodium level 03/08 Lasix drip 10 mg/hour GI: On Protonix 40 milligrams IV daily for GI prophylaxis. On TF- Glucerna 1.5 @45ml/hr, no residual Senna, Colace for bowel regimen, Lactulose 15mg BID, last BM 03/04 02/24 KUB abdomen: Minimal non-specific bowel gas dilatation ID: WBC count elevated .Unable to perform bronchoscopy (BAL) secondary to elevated ventilatory requirements continue with empiric abx(Levaquin (day 3), Rocephin(day 9) and monitor for signs of infections( fever and WBC) Follow up on sputum [id number] Heme: Monitor CBC. Endo: SSI with Accu-Chek q. 6-hour for glycemic control. GI prophylaxis with Protonix 40 mg daily and DVT prophylaxis with SCDs and heparin SQ Doppler US LE no DVT Dispo: Discussed patient with MEDICAL DIRECTOR. Palliative care following. This patient remains critically ill with one or more organ systems which are or may become a threat to life. I have spent in excess of 37 minutes discontinuously in the care and management of this patient. This time is exclusive of procedures, and includes, but is not limited to, evaluation of the patient, review of the medical record, discussions with family, consultants, nursing staff, or respiratory therapy, and documentation in the medical record. Physician Rolanda Maria MD Mar 09, 2017 18:23
[2017-03-09] MEDS: FUROSEMIDE INJ 100 MG in SODIUM CHLORIDE 0.9% INJ 90 ML IV SCH (20:29)
[2017-03-09] MEDS: ATORVASTATIN 40 MG TAB PO SCH (20:30)
[2017-03-09 21:36] LABS: BICARBONATE 44.4 MEQ/L (21.0-32.0); POTASSIUM 3.5 MEQ/L (3.5-5.1)
[2017-03-09] MEDS ORDERED: ALBUMIN HUMAN 25% 25 GM/100 ML BAGP IV ONE (21:45)
[2017-03-10] VITALS (20 sets, daily range): BP systolic 109–152; BP diastolic 57–72; PULSE 78–109; RESP 12–15; TEMP 97.4–101.5; O2SAT 87–96
[2017-03-10] MEDS: fentaNYL DRIP 250 ML IV SCH ×2 (01:34→20:32)
[2017-03-10] MEDS: POTASSIUM CHLORIDE 25 MEQ EFFERVESCENT TAB PO SCH ×2 (03:08→16:00)
[2017-03-10] MEDS: HEPARIN SODIUM - SQ 10,000 UNITS/ML VIAL SQ SCH ×2 (04:12→16:00)
[2017-03-10] MEDS: PROPOFOL 1000 MG/100 ML INJ 100 ML IV SCH ×4 (04:12→22:14)
[2017-03-10] MEDS: INSULIN NovoLIN REGULAR SUPPLEMENTAL SCALE SQ SCH ×4 (05:00→22:16)
[2017-03-10 05:13] LABS: AUTOMATED NEUTROPHIL # 14.6 TH/MM3 (1.8-7.7); BASOPHIL % 0.1 % (0.0-2.0); HEMATOCRIT 47.8 % (39.0-51.0); HEMO FLAGS DIFF FINAL; LYMPH % 2.5 % (9.0-44.0); LYMPHOCYTE # 0.4 TH/MM3 (1.0-4.8); MEAN CELL VOLUME 93.1 FL (80.0-100.0); MEAN CORPUSCULAR HEMOGLOBIN 29.7 PG (27.0-34.0); MEAN CORPUSCULAR HGB CONC 31.9 % (32.0-36.0); MONO % 4.9 % (0.0-8.0); NEUT % 92.5 % (16.0-70.0); PLATELET COUNT 130 TH/MM3 (150-450); RED BLOOD COUNT 5.13 MIL/MM3 (4.50-5.90); RED CELL DISTRIBUTION WIDTH 16.4 % (11.6-17.2); WHITE BLOOD COUNT 15.8 TH/MM3 (4.0-11.0)
[2017-03-10 05:36] LABS: BICARBONATE 43.7 MEQ/L (21.0-32.0); INDIRECT BILIRUBIN 0.4 MG/DL (0.0-0.8); MAGNESIUM 3.2 MG/DL (1.5-2.5); POTASSIUM 3.5 MEQ/L (3.5-5.1); TOTAL BILIRUBIN ADULT 0.6 MG/DL (0.2-1.0)
[2017-03-10] MEDS: DOCUSATE SODIUM 100 MG/10 ML UDC PO SCH ×2 (08:08→21:29)
[2017-03-10] MEDS: methylPREDNISolone SOD SUCC 40 MG/1 ML VIAL IV PUSH SCH ×2 (08:08→21:30)
[2017-03-10] MEDS: PANTOPRAZOLE SODIUM 40 MG VIAL IV SCH (08:08)
[2017-03-10] MEDS: SODIUM CHLORIDE 0.9% FLUSH 10 ML FLUSH IVF PRN (08:08)
[2017-03-10] MEDS: LISINOPRIL 5 MG TAB PO SCH (08:09)
[2017-03-10] MEDS: ASPIRIN 325 MG TAB PO SCH (08:09)
[2017-03-10] MEDS: FLUCONAZOLE 100 MG TAB PO SCH (08:09)
[2017-03-10] MEDS: LACTULOSE SYRUP 20 GM/30 ML CUP PO SCH ×2 (08:09→21:29)
[2017-03-10] MEDS: CLOPIDOGREL 75 MG TAB PO SCH (08:09)
[2017-03-10] MEDS: SENNOSIDES SYRUP 8.8 MG/5 ML CUP PO SCH (08:18)
[2017-03-10] MEDS: CHLORHEXIDINE 0.12% (ORAL KIT) 15 ML CUP MT SCH ×2 (08:19→20:31)
[2017-03-10 10:19] LABS: BLOOD GAS BASE EXCESS 17.2 mmol/L (-2-2); BLOOD GAS CARBOXYHEMOGLOBIN 1.1 % (0-4); BLOOD GAS HCO3 42 mmol/L (22-26); BLOOD GAS METHEMOGLOBIN 1.3 % (0-2); BLOOD GAS O2 HGB SATURATION 84 % (90-100); BLOOD GAS OXYGEN CONTENT 18.5 Vol % (12.0-20.0); BLOOD GAS PCO2 60 mmHg (38-42); BLOOD GAS PO2 55 mmHg (61-120); BLOOD GAS TOTAL HGB 15.7 G/DL (12.0-16.0); CRITICAL VALUE YES; OXYGEN DEVICE VENTILATOR; TEMP CORR TO 98.6
[2017-03-10 10:20] LABS: DRAW SITE RT RADIAL; FIO2 95 %; NUMBER OF ARTERIAL PUNCTURES 1; STAT YES; ULNAR PULSE PRESENT
--- NOTE | 2017-03-10 11:03 | PD.CARD.PN ---
Subjective Subjective Remarks Stopped diuresing when BP dropped yesterday and lasix ggt was also d/c'd, currently on low dose nicol; intubated/sedated. Objective Medications Administered Medications Medications (Trade) Dose Ordered Sig/Luci Route PRN Reason Start Time Stop Time Status Last Admin Dose Admin Sodium Chloride 2 ml 2 ml UNSCH PRN IVF FLUSH AFTER USING IV ACCESS 02/23/17 13:30 03/10/17 08:08 Propofol (Diprivan 1000 Mg/100ml Inj) 100 ml @ 0 mls/hr TITRATE IV 02/23/17 14:30 03/10/17 08:09 Pantoprazole Sodium (Protonix Inj) 40 mg DAILY IV 02/23/17 17:00 03/10/17 08:08 Heparin Sodium (Porcine) (Heparin Inj) 5,000 units Q12H SQ 02/23/17 17:00 03/10/17 04:12 Miscellaneous Information 1 [id number] XX 02/23/17 16:00 02/23/17 16:00 Chlorhexidine Gluconate (Chlorhexidine 2% Cloth) Taper DAILY@04 TOP 02/24/17 04:00 02/20/18 03:59 03/08/17 04:00 Insulin Human Regular (NovoLIN R SUPPLEMENTAL SCALE) 1 Q6H SQ 02/23/17 17:00 03/09/17 11:00 Aspirin (Aspirin) 325 mg DAILY PO 02/24/17 09:00 03/10/17 08:09 Atorvastatin Calcium (Lipitor) 40 mg HS PO 02/23/17 21:00 03/09/17 20:30 Clopidogrel Bisulfate (Plavix) 75 mg DAILY PO 02/24/17 09:00 03/10/17 08:09 Sennosides (Senna Liq) 8.8 mg DAILY PO 02/24/17 09:00 03/09/17 09:23 Docusate Sodium (Colace Liq) 100 mg Q12HR PO 02/24/17 09:00 03/10/17 08:08 Lactulose (Lactulose Liq) 15 ml BID PO 02/27/17 09:00 03/10/17 08:09 Methylprednisolone Sodium Succinate (SoluMEDROL INJ) 40 mg BID IV PUSH 03/01/17 09:00 03/10/17 08:08 Water 250 ml 250 ml Q8HR G-TUBE 03/02/17 14:00 Hold 03/08/17 14:00 Fentanyl Citrate (fentaNYL DRIP) 250 ml @ 0 mls/hr TITRATE IV 03/04/17 01:00 03/10/17 01:34 Fentanyl Citrate (fentaNYL INJ) 50 mcg Q1H PRN IV PUSH SEDATION 03/04/17 01:00 03/05/17 00:40 Lisinopril 5 mg 5 mg DAILY PO 03/09/17 09:00 03/10/17 08:09 Furosemide 100 mg/ Sodium Chloride 100 ml @ 0 mls/hr CONTINUOUS IV 03/08/17 14:15 Hold 03/09/17 20:29 Potassium Chloride (KCl 20 Meq Premix Inj) 100 ml @ 50 mls/hr Q2H PRN IV For Potassium 2.8 - 3.2 mEq/L 03/08/17 13:30 03/08/17 14:19 Chlorhexidine Gluconate (Peridex 0.12% Liq) 15 ml BID@08,20 MT 03/08/17 20:00 03/10/17 08:19 Potassium Bicarb/ Potassium Chloride (K-Lyte Cl Eff) 50 meq Q12H PO 03/08/17 16:00 03/10/17 03:08 Fluconazole (Diflucan) 100 mg DAILY PO 03/09/17 12:00 03/10/17 08:09 Vital Signs / I&O Vital Signs Date Time Temp Pulse Resp B/P Pulse Ox O2 Delivery O2 Flow Rate FiO2 03/10/17 09:00 88 95 03/10/17 06:00 86 03/10/17 04:29 90 95 03/10/17 04:00 81 03/10/17 04:00 100 03/10/17 04:00 99.4 81 12 109/57 90 03/10/17 02:00 78 03/10/17 01:30 88 100 03/10/17 00:03 88 100 03/10/17 00:00 80 03/10/17 00:00 97.4 80 12 128/69 88 03/10/17 00:00 100 03/09/17 22:00 76 03/09/17 21:25 89 100 03/09/17 20:00 97.4 83 12 99/55 91 03/09/17 20:00 83 03/09/17 20:00 100 03/09/17 18:00 99 03/09/17 16:24 97 100 03/09/17 16:00 100 03/09/17 16:00 99.8 87 14 142/76 97 03/09/17 16:00 87 03/09/17 14:00 85 03/09/17 13:19 89 100 03/09/17 12:00 87 03/09/17 12:00 100 03/09/17 12:00 100.2 87 15 104/62 85 I/O 03/09/17 03/09/17 03/09/17 03/10/17 03/10/17 03/10/17 07:00 15:00 23:00 07:00 15:00 23:00 Intake Total 1061 ml 971 ml 2071 ml 973 ml Output Total 1500 ml 650 ml 250 ml 700 ml Balance -439 ml 321 ml 1821 ml 273 ml IV Total 479 ml 467 ml 1425 ml 487 ml Tube Feeding 382 ml 304 ml 426 ml 406 ml Albumin 100 ml Other 200 ml 200 ml 120 ml 80 ml Output Urine Total 1500 ml 650 ml 250 ml 700 ml # Bowel Movements 0 2 Physical Exam GENERAL: Intubated/sedated CARDIOVASCULAR: Regular rate and irregular rhythm without murmurs, gallops, or rubs. RESPIRATORY: rales at bases, vent sounds heard GASTROINTESTINAL: Abdomen soft, non-tender, nondistended. Normal, active bowel sounds MUSCULOSKELETAL: Extremities without clubbing, cyanosis, or edema. NEURO: Intubated/sedated Laboratory Laboratory Tests Test 03/09/17 03/09/17 03/09/17 03/10/17 11:23 16:45 21:07 03:34 Urine Color YELLOW Urine Turbidity HAZY Urine pH 5.0 Urine Specific [place] 1.020 Urine Protein TRACE mg/dL Urine Glucose (UA) NEG mg/dL Urine Ketones NEG mg/dL Urine Occult Blood NEG Urine Nitrite NEG Urine Bilirubin NEG Urine Urobilinogen LESS THAN 2.0 MG/DL Urine Leukocyte Esterase SMALL Urine RBC 6 /hpf Urine WBC 8 /hpf Urine Bacteria RARE /hpf Urine Hyaline Casts 6 /lpf Microscopic Urinalysis Comment CATH-CULTURE IND Blood Gas Puncture Site RT RADIAL Blood Gas Patient Temperature 98.6 Blood Gas HCO3 44 mmol/L Blood Gas Base Excess 18.6 mmol/L Blood Gas Oxygen Saturation 93 % Arterial Blood pH 7.44 Arterial Blood Partial 66 mmHg Pressure CO2 Arterial Blood Partial 82 mmHg Pressure O2 Arterial Blood Oxygen Content 21.6 Vol % Arterial Blood 1.2 % Carboxyhemoglobin Arterial Blood Methemoglobin 1.3 % Blood Gas Hemoglobin 16.6 G/DL Oxygen Delivery Device VENTILATOR Blood Gas Ventilator Setting Blood Gas Inspired Oxygen 100 % Sodium Level 145 MEQ/L 146 MEQ/L Potassium Level 3.5 MEQ/L 3.5 MEQ/L Chloride Level 93 MEQ/L 93 MEQ/L Carbon Dioxide Level 44.4 MEQ/L 43.7 MEQ/L Anion Gap 8 MEQ/L 9 MEQ/L Blood Urea Nitrogen 74 MG/DL 85 MG/DL Creatinine 1.98 MG/DL 1.85 MG/DL Estimat Glomerular Filtration 34 ML/MIN 37 ML/MIN Rate Random Glucose 118 MG/DL 123 MG/DL Calcium Level 9.2 MG/DL 10.0 MG/DL White Blood Count 15.8 TH/MM3 Red Blood Count 5.13 MIL/MM3 Hemoglobin 15.2 GM/DL Hematocrit 47.8 % Mean Corpuscular Volume 93.1 FL Mean Corpuscular Hemoglobin 29.7 PG Mean Corpuscular Hemoglobin 31.9 % Concent Red Cell Distribution Width 16.4 % Platelet Count 130 TH/MM3 Mean Platelet Volume 10.2 FL Neutrophils (%) (Auto) 92.5 % Lymphocytes (%) (Auto) 2.5 % Monocytes (%) (Auto) 4.9 % Eosinophils (%) (Auto) 0.0 % Basophils (%) (Auto) 0.1 % Neutrophils # (Auto) 14.6 TH/MM3 Lymphocytes # (Auto) 0.4 TH/MM3 Monocytes # (Auto) 0.8 TH/MM3 Eosinophils # (Auto) 0.0 TH/MM3 Basophils # (Auto) 0.0 TH/MM3 CBC Comment DIFF FINAL Differential Comment Phosphorus Level 3.7 MG/DL Magnesium Level 3.2 MG/DL Total Bilirubin 0.6 MG/DL Direct Bilirubin 0.2 MG/DL Indirect Bilirubin 0.4 MG/DL Aspartate Amino Transf 27 U/L (AST/SGOT) Alanine Aminotransferase 31 U/L (ALT/SGPT) Alkaline Phosphatase 76 U/L Total Protein 6.9 GM/DL Albumin 2.8 GM/DL Test 03/10/17 10:08 Blood Gas Puncture Site RT RADIAL Blood Gas Patient Temperature 98.6 Blood Gas HCO3 42 mmol/L Blood Gas Base Excess 17.2 mmol/L Blood Gas Oxygen Saturation 84 % Arterial Blood pH 7.46 Arterial Blood Partial 60 mmHg Pressure CO2 Arterial Blood Partial 55 mmHg Pressure O2 Arterial Blood Oxygen Content 18.5 Vol % Arterial Blood 1.1 % Carboxyhemoglobin Arterial Blood Methemoglobin 1.3 % Blood Gas Hemoglobin 15.7 G/DL Oxygen Delivery Device VENTILATOR Blood Gas Ventilator Setting Blood Gas Inspired Oxygen 95 % Imaging Last Impressions Chest X-Ray 03/09/17 0000 Signed Impressions: Service Date/Time: Thursday, March 09, 2017 15:21 - CONCLUSION: No definite pneumothorax. Jayro Barry MD CT Angiography 03/02/17 1206 Signed Impressions: Service Date/Time: Thursday, March 02, 2017 13:46 - CONCLUSION: 1. No pulmonary embolus identified. 2. Small bilateral effusions with significant dependent atelectasis bilaterally. Riley Bob MD Lower Extremity Ultrasound 02/27/17 0000 Signed Impressions: Service Date/Time: Monday, February 27, 2017 08:31 - CONCLUSION: Normal examination. Nick Farrell MD Abdomen X-Ray 02/24/17 0000 Signed Impressions: Service Date/Time: Friday, February 24, 2017 10:43 - CONCLUSION: 1. Nasogastric tube just across the GE junction. 2. Minimal nonspecific bowel gas dilatation. Artur Bob MD FACR Assessment and Plan Problem List: (1) Ischemic dilated cardiomyopathy Assessment and Plan: Respiratory failure/COPD exacerbation and acute on chronic combined CHF Continue IV diuresis Follow renal function Daily Weights Strict I&O Low sodium diet will try adding low dose dobutamine to assist w/ diuresis but will be d/c'd if he develops significant dysrhythmia/RVR w/ his aflutter (2) CAD (coronary artery disease) (3) Hypertension (4) COPD (chronic obstructive pulmonary disease) (5) Atrial flutter Assessment and Plan: not currently on anticoagulation due to procedures, may need to be evaluated if aggressive medical care continues;. (6) COPD with acute exacerbation (7) Acute respiratory failure Problem Qualifiers (1) Acute respiratory failure: Qualified Code: J96.02 - Acute respiratory failure with hypercapnia Deon Lundy MD Mar 10, 2017 11:02
[2017-03-10] MEDS: DOBUTamine PREMIX DRIP 250 ML IV SCH (11:58)
[2017-03-10 16:44] LABS: BLOOD GAS BASE EXCESS 17.7 mmol/L (-2-2); BLOOD GAS CARBOXYHEMOGLOBIN 1.2 % (0-4); BLOOD GAS HCO3 42 mmol/L (22-26); BLOOD GAS O2 HGB SATURATION 82 % (90-100); BLOOD GAS PCO2 53 mmHg (38-42); BLOOD GAS PO2 49 mmHg (61-120); BLOOD GAS TOTAL HGB 15.6 G/DL (12.0-16.0); CRITICAL VALUE YES; OXYGEN DEVICE VENTILATOR; TEMP CORR TO 98.6
[2017-03-10 16:45] LABS: DRAW SITE RT RADIAL; FIO2 100 %; NUMBER OF ARTERIAL PUNCTURES 1; STAT NO; ULNAR PULSE PRESENT; VENT SETTINGS PC/AC
--- NOTE | 2017-03-10 17:50 | HHI.CCPN ---
Subjective Remarks/Hospital Course The patient is a 66-year-old male with past medical history of COPD, cardiomyopathy, hypertension, gastroesophageal reflux disease, hyperlipidemia and coronary artery disease. The patient presented to [facility] ED with a 2-week history of progressive worsening shortness of breath. On arrival to the ED he was initially placed on a non-rebreather mask and ABG was performed which showed acute hypercapnic respiratory failure with a pH of 7.14, CO2 121, pAO2 141, bicarb 40, sats 93%. His laboratory data significant for hyperkalemia with potassium level 6.0 and acute renal failure with a BUN of 43 and creatinine 2.07 respectively. The chest x-ray showed cardiomegaly and findings of vascular congestion without overt failure. In the ED the patient was intubated with etomidate and rocuronium and placed on full mechanical ventilation. In addition, he is scheduled to receive 10 units IV regular insulin, 1 amp of D50 and calcium gluconate for hyperkalemia. He received cefepime, azithromycin, Solu-Medrol 125 milligrams IV push and bronchodilator treatment. When seen the patient is on Diprivan infusion for sedation and full mechanical ventilation. Per the patient is not on any oxygen at home and he occasionally smokes cigarettes. 02/24 Patient is intubated and sedated with Diprivan and Fentanyl. Switched to PC/ AC with RR 12, IP:24, IT:1.06, PEEP: 8 and FIO2 100%. CXR this morning showed interval development of bilateral perihilar and lower lung zone airspace opacity he was given Lasix 60mg total overnight. 02/25 Patient remains sedated and intubated with Diprivan and Fentanyl. Afebrile.On PC/AC with RR 12, IP:22, IT:1.10, PEEP:10, FIO2 70%. Afebrile. Renal function worse today with Cr: 1.90 from 1.72 UO: 1150ml in 24 hrs 02/26 No acute events overnight. Sedated with Fentanyl and Diprivan and intubated. Afebrile. His O2 requirements is less now on PC/AC with IP:22, IT: 1.1 with PEEP: 10 and FIO2 55%. Renal function improving with Cr: 1.42 today from 1.90. Tolerating tube feeds. 02/27 Patient remains sedated with Diprivan and Fentanyl infusion and intubated. Afebrile. 02/28: Remains sedated, orally intubated on mechanical ventilation. Being diuresed with Bumex. Tolerating tube feeds. 03/01: Remains sedated, orally intubated on mechanical ventilation. Being diabetes. Remains on PEEP of 10 and FiO2 60% 03/02 Patient remains sedated with Diprivan and Fentanyl and intubated. On PC/AC with PEEP: 10 and FIO2 80% overnight and sats 93-94%. Afebrile. 03/03: The patient remains on high respiratory requirements PEEP of 10, and FiO2 70%. 03/04: Tmax 99.9. Overnight the patient was noted to have desaturations the patient received a bolus of midazolam and fentanyl for ventilator dyssynchrony. The patient was redosed with Diamox with approximately 2.5 L diuresis in the last 12 hours. The patient continues on an FiO2 of 70% with PEEP of 10 to maintain an O2 sat of 90%. 03/05: Afebrile. Patient's FiO2 remains at 60% to maintain O2sat ranging in 92% . Future plans for tracheostomy discussed with when ventilator requirements are decreased. Patient currently is on a PEEP of 10. Patient receiving multiple doses of diuretics chest x-ray still showing increased vascular congestion. Cardiology following metalazone added to medication regimen per cardiology for diuresis. 03/06: Patient's O2 requirements were increased overnight to FiO2 of 90%. The patient's FiO2 has been decreased now currently to 70% O2 sat is 90% ABG is pending. The patient's diuresis effective, 1 kg weight loss in 24 hours. 03/07: The patient continues to have effective diuresis. The patient's O2 requirements currently FiO2 is 70% to maintain a sat of 90-91%. Discussion with Ms. London yesterday, she would like to discuss with palliative team goals of care. Palliative care consult initiated. 03/08: The patient was less responsive to diuretics today, positive weight balance last 24 hours. The patient was placed on a Lasix infusion, noted occasional PVCs on telemetry. Patient potassium repletion ongoing, schedule potassium PO intake increased to 50 mEq twice a day. Free water flushes placed on hold, was sodium level 145 will continue to monitor. Chest x-ray shows slight improvement. Continued management of ventilator settings ARDS protocol, maintaining PaO2 60 or greater and adjusting vent settings based on PaO2. Sedation vacation attempted today by SENIOR POLICY ADVISOR, GCS 11T. Noted WBC elevation today ID consulted. 03/09: Today the patient was noted to have increasing FiO2 requirements with a PaO2 of 61. FiO2 was increased to 100%, PEEP was gradually increased to 12, then 14. The patient subsequently became hypotensive, likely due to increasing PEEP, but chest x-ray also obtained to rule out pneumothorax which was clear. The patient subsequently was laced on phenylephrine low-dose 20 mcgs which was eventually weaned off. The patient was placed on PEEP at 7 and FiO2 of 100%, sedation was weaned to lower dose. Palliative care also discussed with goals of care and the patient was made DNR. 03/10 noted creatinine elevation last night, Lasix discontinued. Dobutamine initiated per cardiology this morning. The patient continues to have high requirements on a PEEP of 8 and FiO2 of 100% his PaO2 49.2. PEEP has been increased plan to initiate Flolan. Objective Vital Signs Date Time Temp Pulse Resp B/P Pulse Ox O2 Delivery O2 Flow Rate FiO2 03/10/17 14:57 89 100 03/10/17 14:00 107 03/10/17 12:00 101.4 15 127/67 Intake and Output 03/09/17 03/09/17 03/10/17 08:00 16:00 00:00 Intake Total 1061 ml 971 ml 2071 ml Output Total 1500 ml 650 ml 250 ml Balance -439 ml 321 ml 1821 ml Result Diagram: 03/10/17 0334 03/10/17 0334 Other Results Laboratory Tests Test 03/10/17 03/10/17 10:08 16:32 Blood Gas Puncture Site RT RADIAL RT RADIAL Blood Gas Patient Temperature 98.6 98.6 Blood Gas HCO3 42 mmol/L 42 mmol/L (22-26) (22-26) Blood Gas Base Excess 17.2 mmol/L 17.7 mmol/L (-2-2) (-2-2) Blood Gas Oxygen Saturation 84 % (90-100) 82 % (90-100) Arterial Blood pH 7.46 7.52 (7.380-7.420) (7.380-7.420) Arterial Blood Partial 60 mmHg (38-42) 53 mmHg (38-42) Pressure CO2 Arterial Blood Partial 55 mmHg 49 mmHg Pressure O2 (61-120) (61-120) Arterial Blood Oxygen Content 18.5 Vol % 18.0 Vol % (12.0-20.0) (12.0-20.0) Arterial Blood 1.1 % (0-4) 1.2 % (0-4) Carboxyhemoglobin Arterial Blood Methemoglobin 1.3 % (0-2) 1.0 % (0-2) Blood Gas Hemoglobin 15.7 G/DL 15.6 G/DL (12.0-16.0) (12.0-16.0) Oxygen Delivery Device VENTILATOR VENTILATOR Blood Gas Ventilator Setting PC/AC Blood Gas Inspired Oxygen 95 % 100 % Imaging Last Impressions Chest X-Ray 02/28/17 0600 Signed Impressions: Service Date/Time: Tuesday, February 28, 2017 03:29 - CONCLUSION: No change in the pulmonary edema. Garrick Hinton Jr., MD Lower Extremity Ultrasound 02/27/17 0000 Signed Impressions: Service Date/Time: Monday, February 27, 2017 08:31 - CONCLUSION: Normal examination. Nick Farrell MD Abdomen X-Ray 02/24/17 0000 Signed Impressions: Service Date/Time: Friday, February 24, 2017 10:43 - CONCLUSION: 1. Nasogastric tube just across the GE junction. 2. Minimal nonspecific bowel gas dilatation. Artur Bob MD FACR Objective Remarks GENERAL: Patient is 66 yo sedation off, responding to commands. No agitation noted as previously described SKIN: Warm and dry. HEAD: Normocephalic. EYES: No scleral icterus. No injection or drainage. NECK: Supple, trachea midline. No JVD or lymphadenopathy. Patient has multiple carious sharp teeth. No bleeding noted, gauze bite block removed CARDIOVASCULAR: Regular rate and rhythm without murmurs, gallops, or rubs. RESPIRATORY: On mechanical ventilation, orally intubated, Breath sounds equal bilaterally. Coarse BS GASTROINTESTINAL: Abdomen soft, non-tender, nondistended. OGT, tube feedings infusing MUSCULOSKELETAL: 2+ bilateral edema in upper extremities. Neuro: [id number]., responding to yes and no questions Urinary Catheter: Yes [employer] insert reason: Measure Accurate Output Date of Removal: Mar 04, 2017 Line: Central Venous Catheter Side: Right A/P Assessment and Plan 1. Acute hypercapnic and hypoxemic respiratory failure. 2. COPD exacerbation. 3. Acute renal failure. 4. Hyperkalemia. 5. Obstructive sleep apnea and morbid obesity. 6. Ischemic dilated Cardiomyopathy. S/P AICD 03/2015 7. History of coronary artery disease. 8. Gastroesophageal reflux disease. 9. Hypertension. 10. Hyperlipidemia. 11 Pulm edema 12. Acute on chronic systolic and diastolic CHF 13. Pulmonary hypertension Plan: Neuro: On Diprivan and Fentanyl infusion for sedation. Resume daily sedation vacation. CV: Metoprolol XL changed to Lopressor BP keep MAP>65mmHg On aspirin 325 milligrams p.o. daily and Plavix 75 mg p.o. daily. 01/2017 Echo showed EF 40-45%, nl LV diastolic function, No RWMA Cardiology following-Dr. Cole 03/10-patient placed on dobutamine infusion per cardiology Pulm: On PC/AC RR 12, IP:22, IT:1.1 PEEP: 10, FIO2: 100%, decrease FIO2 as kristie Continue with vent support and maintain sats above 92%. Repeat ABG , PaO2 below 60 will initiate Flolan CXR-bilateral consolidation in bases, atelectasis, possible effusions Bronchodilators every 4 hours, Solu-Medrol 40 mg IV BID. Pulm-Dr. Lashell Padron following CTA chest showed no PE, small pleural effusions ETT, day 14-plan for tracheostomy, ventilatory requirements escalated FIO2 100%, PaO2 49, PEEP increased Repeat ABG and initiate Flolan if PaO2 less than 60 : Monitor renal function Is and Os and avoid nephrotoxins. Electrolytes replacement per protocol. Free water 250ml Q8 placed on hold, monitor sodium level 03/08 Lasix drip 10 mg/hour GI: On Protonix 40 milligrams IV daily for GI prophylaxis. On TF- Glucerna 1.5 @45ml/hr, no residual Senna, Colace for bowel regimen, Lactulose 15mg BID, last BM 03/04 02/24 KUB abdomen: Minimal non-specific bowel gas dilatation ID: WBC count elevated .Unable to perform bronchoscopy (BAL) secondary to elevated ventilatory requirements continue with empiric abx(Levaquin (day 3), Rocephin(day 9) and monitor for signs of infections( fever and WBC) Follow up on sputum cx-[id number] Heme: Monitor CBC. Endo: SSI with Accu-Chek q. 6-hour for glycemic control. GI prophylaxis with Protonix 40 mg daily and DVT prophylaxis with SCDs and heparin SQ Doppler US LE no DVT Dispo: Discussed patient with SENIOR POLICY ADVISOR. Palliative care following. This patient remains critically ill with one or more organ systems which are or may become a threat to life. I have spent in excess of 43 minutes discontinuously in the care and management of this patient. This time is exclusive of procedures, and includes, but is not limited to, evaluation of the patient, review of the medical record, discussions with family, consultants, nursing staff, or respiratory therapy, and documentation in the medical record. Physician Rolanda Maria MD Mar 10, 2017 17:50
[2017-03-10 18:09] LABS: BLOOD GAS BASE EXCESS 17.6 mmol/L (-2-2); BLOOD GAS CARBOXYHEMOGLOBIN 1.2 % (0-4); BLOOD GAS HCO3 42 mmol/L (22-26); BLOOD GAS METHEMOGLOBIN 1.3 % (0-2); BLOOD GAS O2 HGB SATURATION 84 % (90-100); BLOOD GAS OXYGEN CONTENT 18.3 Vol % (12.0-20.0); BLOOD GAS PCO2 53 mmHg (38-42); BLOOD GAS PO2 53 mmHg (61-120); BLOOD GAS TOTAL HGB 15.5 G/DL (12.0-16.0); CRITICAL VALUE YES; OXYGEN DEVICE VENTILATOR; TEMP CORR TO 98.6
[2017-03-10 18:10] LABS: DRAW SITE RT RADIAL; FIO2 100 %; NUMBER OF ARTERIAL PUNCTURES 1; STAT NO; ULNAR PULSE PRESENT; VENT SETTINGS PC/AC RATE12
[2017-03-10] MEDS: EPOPROSTENOL NEB SOLUTION 50 NG/KG/MIN 100 ML NEB SCH ×2 (20:31)
[2017-03-10] MEDS: ATORVASTATIN 40 MG TAB PO SCH (21:30)
[2017-03-11] VITALS (17 sets, daily range): BP systolic 125–174; BP diastolic 65–88; PULSE 99–123; RESP 12–16; TEMP 99.1–101.3; O2SAT 92–96
[2017-03-11] MEDS: DOBUTamine PREMIX DRIP 250 ML IV SCH ×2 (01:30→18:43)
[2017-03-11] MEDS: CHLORHEXIDINE GLUCONATE 2 % 1 PACK (2 CLOTHS) TOP SCH (04:00)
[2017-03-11] MEDS: HEPARIN SODIUM - SQ 10,000 UNITS/ML VIAL SQ SCH ×3 (04:25→21:36)
[2017-03-11] MEDS: POTASSIUM CHLORIDE 25 MEQ EFFERVESCENT TAB PO SCH ×2 (04:26→15:13)
[2017-03-11] MEDS: INSULIN NovoLIN REGULAR SUPPLEMENTAL SCALE SQ SCH ×4 (04:50→23:00)
[2017-03-11 05:20] LABS: BLOOD GAS BASE EXCESS 16.9 mmol/L (-2-2); BLOOD GAS CARBOXYHEMOGLOBIN 1.1 % (0-4); BLOOD GAS HCO3 42 mmol/L (22-26); BLOOD GAS METHEMOGLOBIN 1.2 % (0-2); BLOOD GAS O2 HGB SATURATION 90 % (90-100); BLOOD GAS OXYGEN CONTENT 19.8 Vol % (12.0-20.0); BLOOD GAS PCO2 61 mmHg (38-42); BLOOD GAS PO2 67 mmHg (61-120); BLOOD GAS TOTAL HGB 15.8 G/DL (12.0-16.0); TEMP CORR TO 98.6
[2017-03-11 05:21] LABS: CRITICAL VALUE YES; OXYGEN DEVICE VENTILATOR
[2017-03-11 05:22] LABS: DRAW SITE RT RADIAL; FIO2 100 %; NUMBER OF ARTERIAL PUNCTURES 1; STAT NO; ULNAR PULSE PRESENT; VENT SETTINGS PC/AC
[2017-03-11] MEDS: fentaNYL DRIP 250 ML IV SCH ×2 (05:31→15:45)
[2017-03-11] MEDS: EPOPROSTENOL NEB SOLUTION 50 NG/KG/MIN 100 ML NEB SCH ×6 (05:58→20:14)
--- NOTE | 2017-03-11 06:33 | RADRPT ---
EXAM DATE/TIME: 03/11/2017 04:03 [facility] COMPARISON: CHEST SINGLE AP, March 09, 2017, 15:21. INDICATIONS : Shortness of breath, possible pulmonary disease. MEDICAL HISTORY : Hypertension. Hypercholesterolemia. Arthritis. COPD SURGICAL HISTORY : Pacemaker. CABG. ENCOUNTER: Subsequent ACUITY: 2 weeks PAIN SCORE: Non-responsive. LOCATION: Bilateral chest FINDINGS: The cardiac silhouette is normal in transverse diameter. Median sternotomy wires are present. A defib rillator device is in place via a left sided approach. There is bilateral lower lobe atelectasis vers us pneumonia. Moderate size bilateral pleural effusions are identified. CONCLUSION: 1. Bilateral lower lobe atelectasis versus pneumonia. There has been no significant change when aquiles red to the prior exam. Lavell Maciel MD on March 11, 2017 at 6:31 Board Certified Radiologist. This report was verified electronically.
[2017-03-11 07:05] LABS: MEAN CELL VOLUME 93.6 FL (80.0-100.0); MEAN CORPUSCULAR HEMOGLOBIN 30.3 PG (27.0-34.0); MEAN CORPUSCULAR HGB CONC 32.3 % (32.0-36.0); PLATELET COUNT 116 TH/MM3 (150-450); RED BLOOD COUNT 5.02 MIL/MM3 (4.50-5.90); RED CELL DISTRIBUTION WIDTH 16.6 % (11.6-17.2); REVIEW FLAG FINAL; WHITE BLOOD COUNT 15.2 TH/MM3 (4.0-11.0)
[2017-03-11] MEDS: PROPOFOL 1000 MG/100 ML INJ 100 ML IV SCH ×4 (07:16→22:27)
[2017-03-11 07:37] LABS: BICARBONATE 40.7 MEQ/L (21.0-32.0); MAGNESIUM 3.1 MG/DL (1.5-2.5)
[2017-03-11 07:46] LABS: POTASSIUM 4.8 MEQ/L (3.5-5.1)
[2017-03-11] MEDS: CHLORHEXIDINE 0.12% (ORAL KIT) 15 ML CUP MT SCH ×2 (07:56→20:14)
[2017-03-11] MEDS: PANTOPRAZOLE SODIUM 40 MG VIAL IV SCH (07:56)
[2017-03-11] MEDS: methylPREDNISolone SOD SUCC 40 MG/1 ML VIAL IV PUSH SCH ×2 (07:56→21:36)
[2017-03-11] MEDS: FLUCONAZOLE 100 MG TAB PO SCH (07:57)
[2017-03-11] MEDS: ASPIRIN 325 MG TAB PO SCH (07:57)
[2017-03-11] MEDS: CLOPIDOGREL 75 MG TAB PO SCH (07:57)
[2017-03-11] MEDS: LISINOPRIL 5 MG TAB PO SCH (07:57)
--- NOTE | 2017-03-11 08:41 | PD.CARD.PN ---
Subjective Subjective Remarks No clinical change, though Cr. Improved w/ dobutamine Objective Medications Administered Medications Medications (Trade) Dose Ordered Sig/Luci Route PRN Reason Start Time Stop Time Status Last Admin Dose Admin Sodium Chloride 2 ml 2 ml UNSCH PRN IVF FLUSH AFTER USING IV ACCESS 02/23/17 13:30 03/10/17 08:08 Propofol (Diprivan 1000 Mg/100ml Inj) 100 ml @ 0 mls/hr TITRATE IV 02/23/17 14:30 03/11/17 07:16 Pantoprazole Sodium (Protonix Inj) 40 mg DAILY IV 02/23/17 17:00 03/11/17 07:56 Heparin Sodium (Porcine) (Heparin Inj) 5,000 units Q12H SQ 02/23/17 17:00 03/11/17 04:25 Miscellaneous Information 1 [id number] XX 02/23/17 16:00 02/23/17 16:00 Chlorhexidine Gluconate (Chlorhexidine 2% Cloth) Taper DAILY@04 TOP 02/24/17 04:00 02/20/18 03:59 03/08/17 04:00 Insulin Human Regular (NovoLIN R SUPPLEMENTAL SCALE) 1 Q6H SQ 02/23/17 17:00 03/09/17 11:00 Aspirin (Aspirin) 325 mg DAILY PO 02/24/17 09:00 03/11/17 07:57 Atorvastatin Calcium (Lipitor) 40 mg HS PO 02/23/17 21:00 03/10/17 21:30 Clopidogrel Bisulfate (Plavix) 75 mg DAILY PO 02/24/17 09:00 03/11/17 07:57 Sennosides (Senna Liq) 8.8 mg DAILY PO 02/24/17 09:00 03/09/17 09:23 Docusate Sodium (Colace Liq) 100 mg Q12HR PO 02/24/17 09:00 03/10/17 21:29 Lactulose (Lactulose Liq) 15 ml BID PO 02/27/17 09:00 03/10/17 21:29 Methylprednisolone Sodium Succinate (SoluMEDROL INJ) 40 mg BID IV PUSH 03/01/17 09:00 03/11/17 07:56 Water 250 ml 250 ml Q8HR G-TUBE 03/02/17 14:00 Hold 03/08/17 14:00 Fentanyl Citrate (fentaNYL DRIP) 250 ml @ 0 mls/hr TITRATE IV 03/04/17 01:00 03/11/17 05:31 Fentanyl Citrate (fentaNYL INJ) 50 mcg Q1H PRN IV PUSH SEDATION 03/04/17 01:00 03/05/17 00:40 Lisinopril 5 mg 5 mg DAILY PO 03/09/17 09:00 03/11/17 07:57 Furosemide 100 mg/ Sodium Chloride 100 ml @ 0 mls/hr CONTINUOUS IV 03/08/17 14:15 Hold 03/09/17 20:29 Potassium Chloride (KCl 20 Meq Premix Inj) 100 ml @ 50 mls/hr Q2H PRN IV For Potassium 2.8 - 3.2 mEq/L 03/08/17 13:30 03/08/17 14:19 Chlorhexidine Gluconate (Peridex 0.12% Liq) 15 ml BID@08,20 MT 03/08/17 20:00 03/11/17 07:56 Potassium Bicarb/ Potassium Chloride (K-Lyte Cl Eff) 50 meq Q12H PO 03/08/17 16:00 03/11/17 04:26 Fluconazole 100 mg 100 mg DAILY PO 03/09/17 12:00 03/11/17 07:57 Dobutamine HCl/ Dextrose 250 ml @ 15.195 mls/ hr [id number] IV 03/10/17 11:03 03/11/17 01:30 Epoprostenol Sodium/Sodium Chloride (Flolan (30,000 Ng/ml) Neb/NS Inj) 100 ml @ 8 mls/hr Q8H NEB 03/10/17 20:00 03/11/17 05:58 Vital Signs / I&O Vital Signs Date Time Temp Pulse Resp B/P Pulse Ox O2 Delivery O2 Flow Rate FiO2 03/11/17 08:08 94 100 03/11/17 06:00 123 03/11/17 04:10 95 100 03/11/17 04:00 107 03/11/17 04:00 100 03/11/17 04:00 100.3 107 14 125/76 94 03/11/17 02:00 100.0 03/11/17 02:00 110 03/11/17 01:28 92 100 03/11/17 00:00 99.1 116 16 150/80 95 03/11/17 00:00 100 03/11/17 00:00 116 03/10/17 22:28 91 100 03/10/17 22:00 102 03/10/17 22:00 100.3 03/10/17 20:15 90 100 03/10/17 20:00 100 03/10/17 20:00 99 03/10/17 20:00 100.5 99 12 152/72 96 03/10/17 18:00 103 03/10/17 16:00 109 03/10/17 16:00 101.5 109 13 121/63 87 03/10/17 16:00 95 03/10/17 14:57 89 100 03/10/17 14:00 107 03/10/17 12:40 87 95 03/10/17 12:00 95 03/10/17 12:00 101.4 90 15 127/67 88 03/10/17 12:00 90 03/10/17 10:00 95 03/10/17 09:00 88 95 I/O 03/10/17 03/10/17 03/10/17 03/11/17 03/11/17 03/11/17 07:00 15:00 23:00 07:00 15:00 23:00 Intake Total 973 ml 920 ml 925 ml 957 ml Output Total 700 ml 775 ml 1175 ml 1000 ml Balance 273 ml 145 ml -250 ml -43 ml IV Total 487 ml 425 ml 514 ml 519 ml Tube Feeding 406 ml 295 ml 381 ml 378 ml Other 80 ml 200 ml 30 ml 60 ml Output Urine Total 700 ml 775 ml 1175 ml 1000 ml Tube Feeding Residual Discard 0 ml # Bowel Movements 2 3 0 1 Physical Exam GENERAL: Intubated/sedated CARDIOVASCULAR: Regular rate and irregular rhythm without murmurs, gallops, or rubs. RESPIRATORY: rales at bases, vent sounds heard GASTROINTESTINAL: Abdomen soft, non-tender, nondistended. Normal, active bowel sounds MUSCULOSKELETAL: Extremities without clubbing, cyanosis, or edema. NEURO: Intubated/sedated Laboratory Laboratory Tests Test 03/10/17 03/10/17 03/10/17 03/11/17 10:08 16:32 18:00 05:10 Blood Gas Puncture Site RT RADIAL RT RADIAL RT RADIAL RT RADIAL Blood Gas Patient Temperature 98.6 98.6 98.6 98.6 Blood Gas HCO3 42 mmol/L 42 mmol/L 42 mmol/L 42 mmol/L Blood Gas Base Excess 17.2 mmol/L 17.7 mmol/L 17.6 mmol/L 16.9 mmol/L Blood Gas Oxygen Saturation 84 % 82 % 84 % 90 % Arterial Blood pH 7.46 7.52 7.52 7.46 Arterial Blood Partial 60 mmHg 53 mmHg 53 mmHg 61 mmHg Pressure CO2 Arterial Blood Partial 55 mmHg 49 mmHg 53 mmHg 67 mmHg Pressure O2 Arterial Blood Oxygen Content 18.5 Vol % 18.0 Vol % 18.3 Vol % 19.8 Vol % Arterial Blood 1.1 % 1.2 % 1.2 % 1.1 % Carboxyhemoglobin Arterial Blood Methemoglobin 1.3 % 1.0 % 1.3 % 1.2 % Blood Gas Hemoglobin 15.7 G/DL 15.6 G/DL 15.5 G/DL 15.8 G/DL Oxygen Delivery Device VENTILATOR VENTILATOR VENTILATOR VENTILATOR Blood Gas Ventilator Setting PC/AC PC/AC RATE12 PC/AC Blood Gas Inspired Oxygen 95 % 100 % 100 % 100 % Test 03/11/17 05:40 White Blood Count 15.2 TH/MM3 Red Blood Count 5.02 MIL/MM3 Hemoglobin 15.2 GM/DL Hematocrit 47.0 % Mean Corpuscular Volume 93.6 FL Mean Corpuscular Hemoglobin 30.3 PG Mean Corpuscular Hemoglobin 32.3 % Concent Red Cell Distribution Width 16.6 % Platelet Count 116 TH/MM3 Mean Platelet Volume 10.2 FL Sodium Level 145 MEQ/L Potassium Level 4.8 MEQ/L Chloride Level 100 MEQ/L Carbon Dioxide Level 40.7 MEQ/L Anion Gap 4 MEQ/L Blood Urea Nitrogen 70 MG/DL Creatinine 1.05 MG/DL Estimat Glomerular Filtration 70 ML/MIN Rate Random Glucose 133 MG/DL Calcium Level 9.8 MG/DL Phosphorus Level 2.9 MG/DL Magnesium Level 3.1 MG/DL Imaging Last Impressions Chest X-Ray 03/11/17 0600 Signed Impressions: Service Date/Time: Saturday, March 11, 2017 04:03 - CONCLUSION: 1. Bilateral lower lobe atelectasis versus pneumonia. There has been no significant change when compared to the prior exam. Lavell Maciel MD CT Angiography 03/02/17 1206 Signed Impressions: Service Date/Time: Thursday, March 02, 2017 13:46 - CONCLUSION: 1. No pulmonary embolus identified. 2. Small bilateral effusions with significant dependent atelectasis bilaterally. Riley Bob MD Lower Extremity Ultrasound 02/27/17 0000 Signed Impressions: Service Date/Time: Monday, February 27, 2017 08:31 - CONCLUSION: Normal examination. Nick Farrell MD Abdomen X-Ray 02/24/17 0000 Signed Impressions: Service Date/Time: Friday, February 24, 2017 10:43 - CONCLUSION: 1. Nasogastric tube just across the GE junction. 2. Minimal nonspecific bowel gas dilatation. Artur Bob MD FACR Assessment and Plan Problem List: (1) Ischemic dilated cardiomyopathy Assessment and Plan: Respiratory failure/COPD exacerbation and acute on chronic combined CHF Continue IV diuresis (lasix was held when cr increased but better now) Follow renal function; improved today w/ dobutamine Daily Weights Strict I&O on dobutamine to assist w/ diuresis but will be d/c'd if he develops significant dysrhythmia/RVR w/ his aflutter (2) CAD (coronary artery disease) (3) Hypertension (4) COPD (chronic obstructive pulmonary disease) (5) Atrial flutter Assessment and Plan: not currently on anticoagulation due to procedures, may need to be evaluated if aggressive medical care continues;. (6) COPD with acute exacerbation (7) Acute respiratory failure Assessment and Plan Dr. Cole will return tomorrow to resume care. Problem Qualifiers (1) Acute respiratory failure: Qualified Code: J96.02 - Acute respiratory failure with hypercapnia Deon Lundy MD Mar 11, 2017 08:41
[2017-03-11] MEDS: SENNOSIDES SYRUP 8.8 MG/5 ML CUP PO SCH (10:03)
[2017-03-11] MEDS: LACTULOSE SYRUP 20 GM/30 ML CUP PO SCH ×2 (10:03→21:35)
[2017-03-11] MEDS: DOCUSATE SODIUM 100 MG/10 ML UDC PO SCH ×2 (10:03→21:35)
[2017-03-11] MEDS ORDERED: LINEZOLID 600 MG PREMIX 300 ML IV SCH (12:00)
[2017-03-11] MEDS: ACETAMINOPHEN 325 MG TAB PO PRN (12:16)
--- NOTE | 2017-03-11 12:50 | HHI.CCPN ---
Subjective Remarks/Hospital Course The patient is a 66-year-old male with past medical history of COPD, cardiomyopathy, hypertension, gastroesophageal reflux disease, hyperlipidemia and coronary artery disease. The patient presented to [facility] ED with a 2-week history of progressive worsening shortness of breath. On arrival to the ED he was initially placed on a non-rebreather mask and ABG was performed which showed acute hypercapnic respiratory failure with a pH of 7.14, CO2 121, pAO2 141, bicarb 40, sats 93%. His laboratory data significant for hyperkalemia with potassium level 6.0 and acute renal failure with a BUN of 43 and creatinine 2.07 respectively. The chest x-ray showed cardiomegaly and findings of vascular congestion without overt failure. In the ED the patient was intubated with etomidate and rocuronium and placed on full mechanical ventilation. In addition, he is scheduled to receive 10 units IV regular insulin, 1 amp of D50 and calcium gluconate for hyperkalemia. He received cefepime, azithromycin, Solu-Medrol 125 milligrams IV push and bronchodilator treatment. When seen the patient is on Diprivan infusion for sedation and full mechanical ventilation. Per the patient is not on any oxygen at home and he occasionally smokes cigarettes. 02/24 Patient is intubated and sedated with Diprivan and Fentanyl. Switched to PC/ AC with RR 12, IP:24, IT:1.06, PEEP: 8 and FIO2 100%. CXR this morning showed interval development of bilateral perihilar and lower lung zone airspace opacity he was given Lasix 60mg total overnight. 02/25 Patient remains sedated and intubated with Diprivan and Fentanyl. Afebrile.On PC/AC with RR 12, IP:22, IT:1.10, PEEP:10, FIO2 70%. Afebrile. Renal function worse today with Cr: 1.90 from 1.72 UO: 1150ml in 24 hrs 02/26 No acute events overnight. Sedated with Fentanyl and Diprivan and intubated. Afebrile. His O2 requirements is less now on PC/AC with IP:22, IT: 1.1 with PEEP: 10 and FIO2 55%. Renal function improving with Cr: 1.42 today from 1.90. Tolerating tube feeds. 02/27 Patient remains sedated with Diprivan and Fentanyl infusion and intubated. Afebrile. 02/28: Remains sedated, orally intubated on mechanical ventilation. Being diuresed with Bumex. Tolerating tube feeds. 03/01: Remains sedated, orally intubated on mechanical ventilation. Being diabetes. Remains on PEEP of 10 and FiO2 60% 03/02 Patient remains sedated with Diprivan and Fentanyl and intubated. On PC/AC with PEEP: 10 and FIO2 80% overnight and sats 93-94%. Afebrile. 03/03: The patient remains on high respiratory requirements PEEP of 10, and FiO2 70%. 03/04: Tmax 99.9. Overnight the patient was noted to have desaturations the patient received a bolus of midazolam and fentanyl for ventilator dyssynchrony. The patient was redosed with Diamox with approximately 2.5 L diuresis in the last 12 hours. The patient continues on an FiO2 of 70% with PEEP of 10 to maintain an O2 sat of 90%. 03/05: Afebrile. Patient's FiO2 remains at 60% to maintain O2sat ranging in 92% . Future plans for tracheostomy discussed with when ventilator requirements are decreased. Patient currently is on a PEEP of 10. Patient receiving multiple doses of diuretics chest x-ray still showing increased vascular congestion. Cardiology following metalazone added to medication regimen per cardiology for diuresis. 03/06: Patient's O2 requirements were increased overnight to FiO2 of 90%. The patient's FiO2 has been decreased now currently to 70% O2 sat is 90% ABG is pending. The patient's diuresis effective, 1 kg weight loss in 24 hours. 03/07: The patient continues to have effective diuresis. The patient's O2 requirements currently FiO2 is 70% to maintain a sat of 90-91%. Discussion with Ms. London yesterday, she would like to discuss with palliative team goals of care. Palliative care consult initiated. 03/08: The patient was less responsive to diuretics today, positive weight balance last 24 hours. The patient was placed on a Lasix infusion, noted occasional PVCs on telemetry. Patient potassium repletion ongoing, schedule potassium PO intake increased to 50 mEq twice a day. Free water flushes placed on hold, was sodium level 145 will continue to monitor. Chest x-ray shows slight improvement. Continued management of ventilator settings ARDS protocol, maintaining PaO2 60 or greater and adjusting vent settings based on PaO2. Sedation vacation attempted today by METALIZING MACHINE OPERATOR, GCS 11T. Noted WBC elevation today ID consulted. 03/09: Today the patient was noted to have increasing FiO2 requirements with a PaO2 of 61. FiO2 was increased to 100%, PEEP was gradually increased to 12, then 14. The patient subsequently became hypotensive, likely due to increasing PEEP, but chest x-ray also obtained to rule out pneumothorax which was clear. The patient subsequently was laced on phenylephrine low-dose 20 mcgs which was eventually weaned off. The patient was placed on PEEP at 7 and FiO2 of 100%, sedation was weaned to lower dose. Palliative care also discussed with goals of care and the patient was made DNR. 03/10 noted creatinine elevation last night, Lasix discontinued. Dobutamine initiated per cardiology this morning. The patient continues to have high requirements on a PEEP of 8 and FiO2 of 100% his PaO2 49.2. PEEP has been increased plan to initiate Flolan. 03/11: Tmax 100.5. FRANK resolved with dobutamine infusion, heart rate 110. Microbiology report bacteremia gram-positive cocci and sputum. Patient currently on Diflucan. Will begin Linezolid in the setting of recent FRANK and oliguria, and await further recommendations from infectious disease provider relations consultant. Respiratory status deteriorating. The patient was placed on Flolan last night PaO2 67. Patient remains on a PEEP of 10, unable to advance secondary to hypotension. Objective Vital Signs Date Time Temp Pulse Resp B/P Pulse Ox O2 Delivery O2 Flow Rate FiO2 03/11/17 10:00 109 03/11/17 08:08 94 100 03/11/17 08:00 99.8 13 131/65 Intake and Output 03/10/17 03/10/17 03/11/17 08:00 16:00 00:00 Intake Total 973 ml 920 ml 925 ml Output Total 700 ml 775 ml 1175 ml Balance 273 ml 145 ml -250 ml Result Diagram: 03/11/17 0540 03/11/17 0540 Other Results Microbiology Date/Time Procedure Status Source Growth 03/09/17 11:23 Urine Culture - Final Complete Urine Catheterized Urine NO GROWTH IN 48 HOURS. Laboratory Tests Test 03/10/17 03/10/17 03/11/17 16:32 18:00 05:10 Blood Gas Puncture Site RT RADIAL RT RADIAL RT RADIAL Blood Gas Patient Temperature 98.6 98.6 98.6 Blood Gas HCO3 42 mmol/L 42 mmol/L 42 mmol/L (22-26) (22-26) (22-26) Blood Gas Base Excess 17.7 mmol/L 17.6 mmol/L 16.9 mmol/L (-2-2) (-2-2) (-2-2) Blood Gas Oxygen Saturation 82 % (90-100) 84 % (90-100) 90 % (90-100) Arterial Blood pH 7.52 7.52 7.46 (7.380-7.420) (7.380-7.420) (7.380-7.420) Arterial Blood Partial 53 mmHg (38-42) 53 mmHg (38-42) 61 mmHg (38-42) Pressure CO2 Arterial Blood Partial 49 mmHg 53 mmHg 67 mmHg Pressure O2 (61-120) (61-120) (61-120) Arterial Blood Oxygen Content 18.0 Vol % 18.3 Vol % 19.8 Vol % (12.0-20.0) (12.0-20.0) (12.0-20.0) Arterial Blood 1.2 % (0-4) 1.2 % (0-4) 1.1 % (0-4) Carboxyhemoglobin Arterial Blood Methemoglobin 1.0 % (0-2) 1.3 % (0-2) 1.2 % (0-2) Blood Gas Hemoglobin 15.6 G/DL 15.5 G/DL 15.8 G/DL (12.0-16.0) (12.0-16.0) (12.0-16.0) Oxygen Delivery Device VENTILATOR VENTILATOR VENTILATOR Blood Gas Ventilator Setting PC/AC PC/AC RATE12 PC/AC Blood Gas Inspired Oxygen 100 % 100 % 100 % Imaging Last Impressions Chest X-Ray 02/28/17 0600 Signed Impressions: Service Date/Time: Tuesday, February 28, 2017 03:29 - CONCLUSION: No change in the pulmonary edema. Garrick Hinton Jr., MD Lower Extremity Ultrasound 02/27/17 0000 Signed Impressions: Service Date/Time: Monday, February 27, 2017 08:31 - CONCLUSION: Normal examination. Nick Farrell MD Abdomen X-Ray 02/24/17 0000 Signed Impressions: Service Date/Time: Friday, February 24, 2017 10:43 - CONCLUSION: 1. Nasogastric tube just across the GE junction. 2. Minimal nonspecific bowel gas dilatation. Artur Bob MD FACR Objective Remarks GENERAL: Patient is 66 yo obese male, GCS 11 T . SKIN: Warm and dry. HEAD: Normocephalic. EYES: No scleral icterus. No injection or drainage. NECK: Supple, trachea midline. No JVD or lymphadenopathy. Patient has multiple carious sharp teeth. No bleeding noted, gauze bite block removed CARDIOVASCULAR: Regular rate and rhythm without murmurs, gallops, or rubs. RESPIRATORY: On mechanical ventilation, orally intubated, Breath sounds equal bilaterally. Coarse BS GASTROINTESTINAL: Abdomen soft, non-tender, nondistended. OGT, tube feedings infusing MUSCULOSKELETAL: 2+ bilateral edema in upper extremities. Neuro: [id number].,RASS -2 responding to yes and no questions Urinary Catheter: Yes [employer] insert reason: Measure Accurate Output Date of Removal: Mar 04, 2017 Line: Central Venous Catheter Side: Right A/P Assessment and Plan 1. Acute hypercapnic and hypoxemic respiratory failure. 2. COPD exacerbation. 3. Acute renal failure. 4. Hyperkalemia. 5. Obstructive sleep apnea and morbid obesity. 6. Ischemic dilated Cardiomyopathy. S/P AICD 03/2015 7. History of coronary artery disease. 8. Gastroesophageal reflux disease. 9. Hypertension. 10. Hyperlipidemia. 11 Pulm edema 12. Acute on chronic systolic and diastolic CHF 13. Pulmonary hypertension 14. Bacteremia Plan: Neuro: On Diprivan and Fentanyl infusion for sedation. Resume daily sedation vacation, when ventilator settings are decreased. Currently patient has a PEEP of 10 and on Flolan, unable to perform sedation vacation to maintain ventilator synchrony CV: Metoprolol XL changed to Lopressor BP keep MAP>65mmHg On aspirin 325 milligrams p.o. daily and Plavix 75 mg p.o. daily. 01/2017 Echo showed EF 40-45%, nl LV diastolic function, No RWMA Cardiology following-Dr. Cole 03/10-patient placed on dobutamine infusion per cardiology, resolution of FRANK with increase in cardiac output Pulm: On PC/AC RR 12, IP:22, IT:1.1 PEEP: 10, FIO2: 100%, decrease FIO2 as kristie Continue with vent support and maintain sats above 92%. Repeat ABG , PaO2 below 60 will initiate Flolan CXR-bilateral consolidation in bases, atelectasis, possible effusions Bronchodilators every 4 hours, Solu-Medrol 40 mg IV BID. Pulm-Dr. Lashell Padron following CTA chest showed no PE, small pleural effusions ETT, day 15-plan for tracheostomy, ventilatory requirements escalated FIO2 100%, PaO2 49, PEEP increased, now on Flolan ABG-7.46/61/67/42/16.9-on Flolan CXR-moderate pleural effusion, consider IR for thoracentesis drainage in am or possibly at bedside due to high ventilator requirements : Monitor renal function Is and Os and avoid nephrotoxins. Electrolytes replacement per protocol. Free water 250ml Q8 placed on hold, monitor sodium level 03/08 Lasix drip 10 mg/hour dc'd 03/09 2/2 FRANK, increasing creatinine GI: On Protonix 40 milligrams IV daily for GI prophylaxis. On TF- Glucerna 1.5 @45ml/hr, no residual Senna, Colace for bowel regimen, Lactulose 15mg BID, last BM 03/11 02/24 KUB abdomen: Minimal non-specific bowel gas dilatation ID: WBC count elevated .Unable to perform bronchoscopy (BAL) secondary to elevated ventilatory requirements continue with empiric abx(Levaquin and Rocephin dc'd 03/08 and monitor for signs of infections( fever and WBC) Follow up on sputum [id number] 03/09 Repeat Bld cultures-staph aureus 03/09 Repeat sputum culture-staph aureus 03/10 started on Linezolid, will await recommendations from ID- Dr. Young Heme: Monitor CBC. Endo: SSI with Accu-Chek q. 6-hour for glycemic control. GI prophylaxis with Protonix 40 mg daily and DVT prophylaxis with SCDs and heparin SQ Doppler US LE No DVT Dispo: Discussed patient with METALIZING MACHINE OPERATOR. Palliative care following. This patient remains critically ill with one or more organ systems which are or may become a threat to life. I have spent in excess of 39 minutes discontinuously in the care and management of this patient. This time is exclusive of procedures, and includes, but is not limited to, evaluation of the patient, review of the medical record, discussions with family, consultants, nursing staff, or respiratory therapy, and documentation in the medical record. Physician Rolanda Maria MD Mar 11, 2017 12:50
--- NOTE | 2017-03-11 12:56 | HHI.IDPN ---
Note Infectious Disease Note ID coverage. Notes reviewed. Patient on the vent.100% FIO2. Sedated. Opens eyes. Febrile. Blood culture has gram positive cocci. Patient is a 66-year-old male, brought into the hospital for further evaluation of progressive shortness of breath. Infectious disease consultation was requested to evaluate his leukocytosis. ROS - General Review of Systems ROS Limitations: Clinical Condition, Intubated PFSH Past Family Social History Allergies: Coded Allergies: No Known Allergies (Verified , 02/23/17) Past Medical History COPD Coronary artery disease with stent to the RCA Cardiomyopathy Arthritis Sleep apnea Hyperlipidemia. Past Surgical History CABG Appendectomy Fracture, and has hardware in left forearm. Defibrillator/pacer placement. Current Medications Medications (Trade) Dose Ordered Sig/Luci Route PRN Reason Start Time Stop Time Status Last Admin Dose Admin Sodium Chloride 2 ml 2 ml UNSCH PRN IVF FLUSH AFTER USING IV ACCESS 02/23/17 13:30 03/10/17 08:08 Propofol (Diprivan 1000 Mg/100ml Inj) 100 ml @ 0 mls/hr TITRATE IV 02/23/17 14:30 03/11/17 12:20 Pantoprazole Sodium (Protonix Inj) 40 mg DAILY IV 02/23/17 17:00 03/11/17 07:56 Miscellaneous Information 1 [id number] XX 02/23/17 16:00 02/23/17 16:00 Chlorhexidine Gluconate (Chlorhexidine 2% Cloth) Taper DAILY@04 TOP 02/24/17 04:00 02/20/18 03:59 03/08/17 04:00 Chlorhexidine Gluconate (Chlorhexidine 2% Cloth) 3 pack UNSCH PRN [facility] 02/23/17 16:00 Dextrose (D50w (Vial) Inj) 25 ml UNSCH PRN IV PUSH HYPOGLYCEMIA-SEE COMMENTS 02/23/17 16:00 Glucagon (Glucagon Inj) 1 mg UNSCH PRN OTHER HYPOGLYCEMIA-SEE COMMENTS 02/23/17 16:00 Insulin Human Regular (NovoLIN R SUPPLEMENTAL SCALE) 1 Q6H SQ 02/23/17 17:00 03/09/17 11:00 Aspirin (Aspirin) 325 mg DAILY PO 02/24/17 09:00 03/11/17 07:57 Atorvastatin Calcium (Lipitor) 40 mg HS PO 02/23/17 21:00 03/10/17 21:30 Clopidogrel Bisulfate (Plavix) 75 mg DAILY PO 02/24/17 09:00 03/11/17 07:57 Sennosides (Senna Liq) 8.8 mg DAILY PO 02/24/17 09:00 03/11/17 10:03 Docusate Sodium (Colace Liq) 100 mg Q12HR PO 02/24/17 09:00 03/11/17 10:03 Lactulose (Lactulose Liq) 15 ml BID PO 02/27/17 09:00 03/11/17 10:03 Methylprednisolone Sodium Succinate (SoluMEDROL INJ) 40 mg BID IV PUSH 03/01/17 09:00 03/11/17 07:56 Water 250 ml 250 ml Q8HR G-TUBE 03/02/17 14:00 Hold 03/08/17 14:00 Fentanyl Citrate (fentaNYL DRIP) 250 ml @ 0 mls/hr TITRATE IV 03/04/17 01:00 03/11/17 05:31 Fentanyl Citrate (fentaNYL INJ) 50 mcg Q1H PRN IV PUSH SEDATION 03/04/17 01:00 03/05/17 00:40 Miscellaneous (Pill Splitter) 1 ea UNSCH PRN OTHER SEE LABEL COMMENTS 03/06/17 15:00 Lisinopril 5 mg 5 mg DAILY PO 03/09/17 09:00 03/11/17 07:57 Furosemide 100 mg/ Sodium Chloride 100 ml @ 0 mls/hr CONTINUOUS IV 03/08/17 14:15 Hold 03/09/17 20:29 Potassium Chloride 100 ml @ 50 mls/hr Q2H PRN IV-CENTRAL For Potassium 2.8 - 3.2 mEq/L 03/08/17 13:30 Potassium Chloride (KCl 20 Meq Premix Inj) 100 ml @ 50 mls/hr Q2H PRN IV For Potassium 2.8 - 3.2 mEq/L 03/08/17 13:30 03/08/17 14:19 Potassium Bicarb/ Potassium Chloride 50 meq 50 meq UNSCH PRN PO For Potassium 3.3 - 3.5 mEq/L 03/08/17 13:30 Potassium Chloride 100 ml @ 25 mls/hr UNSCH PRN IV-CENTRAL For Potassium 3.3 - 3.5 mEq/L 03/08/17 13:30 Potassium Chloride 100 ml @ 50 mls/hr Q2H PRN IV For Potassium 3.3 - 3.5 mEq/L 03/08/17 13:30 Magnesium Sulfate/ Sodium Chloride (Magnesium Sulfate Inj/NS Inj) 100 ml @ 50 mls/hr UNSCH PRN IV For Magnesium 0.9 - 1.1 mg/dL 03/08/17 13:30 Magnesium Oxide 800 mg 800 mg UNSCH PRN PO For Magnesium 1.2 - 1.6 mg/dL 03/08/17 13:30 Magnesium Sulfate/ Sodium Chloride (Magnesium Sulfate Inj/NS Inj) 100 ml @ 50 mls/hr UNSCH PRN IV For Magnesium 1.2 - 1.6 mg/dL 03/08/17 13:30 Potassium Phosphate 2000 mg 2,000 mg Q4H PRN PO For Phosphorus < 2.5 mg/dL 03/08/17 13:30 Sodium Phosphate/ Sodium Chloride (Sodium Phosphate Inj/NS 250 ml Inj) 250 ml @ 42 mls/hr UNSCH PRN IV For Phosphorus < 2.5 mg/dL 03/08/17 13:30 Chlorhexidine Gluconate (Peridex 0.12% Liq) 15 ml BID@08,20 MT 03/08/17 20:00 03/11/17 07:56 Potassium Bicarb/ Potassium Chloride (K-Lyte Cl Eff) 50 meq Q12H PO 03/08/17 16:00 03/11/17 04:26 Fluconazole 100 mg 100 mg DAILY PO 03/09/17 12:00 03/11/17 07:57 Phenylephrine HCl/ Dextrose (Neosynephrine Inj/D5W 500 ml Inj) 500 ml @ 0 mls/hr TITRATE IV 03/09/17 15:30 Terbutaline Sulfate 1 mg 1 mg UNSCH PRN SQ FOR EXTRAVASATION PROTOCOL 03/09/17 15:30 Dobutamine HCl/ Dextrose (DOBUTamine PREMIX DRIP) 250 ml @ 15.195 mls/ hr [id number] IV 03/10/17 11:03 03/11/17 01:30 Acetaminophen 650 mg 650 mg UNSCH PRN PO FEVER 03/10/17 15:45 03/11/17 12:16 Epoprostenol Sodium 87.5 ml/ Sodium Chloride 100 ml @ 8 mls/hr Q8H NEB 03/10/17 20:00 03/11/17 05:58 Linezolid (Zyvox 600 Mg Premix) 300 ml @ 300 mls/hr Q12H IV 03/11/17 12:00 03/11/17 12:07 Heparin Sodium (Porcine) (Heparin Inj) 5,000 units Q8HR SQ 03/11/17 14:00 Physical Exam Vital Signs Date Time Temp Pulse Resp B/P Pulse Ox O2 Delivery O2 Flow Rate FiO2 03/11/17 10:00 109 03/11/17 08:08 94 100 03/11/17 08:00 99 03/11/17 08:00 100 03/11/17 08:00 99.8 103 13 131/65 93 03/11/17 06:00 123 03/11/17 04:10 95 100 03/11/17 04:00 107 03/11/17 04:00 100 03/11/17 04:00 100.3 107 14 125/76 94 03/11/17 02:00 100.0 03/11/17 02:00 110 03/11/17 01:28 92 100 03/11/17 00:00 99.1 116 16 150/80 95 03/11/17 00:00 100 03/11/17 00:00 116 03/10/17 22:28 91 100 03/10/17 22:00 102 03/10/17 22:00 100.3 03/10/17 20:15 90 100 03/10/17 20:00 100 03/10/17 20:00 99 03/10/17 20:00 100.5 99 12 152/72 96 03/10/17 18:00 103 03/10/17 16:00 109 03/10/17 16:00 101.5 109 13 121/63 87 03/10/17 16:00 95 03/10/17 14:57 89 100 03/10/17 14:00 107 03/10/17 03/10/17 03/11/17 15:00 23:00 07:00 Intake Total 920 ml 925 ml 957 ml Output Total 775 ml 1175 ml 1000 ml Balance 145 ml -250 ml -43 ml IV Total 425 ml 514 ml 519 ml Tube Feeding 295 ml 381 ml 378 ml Other 200 ml 30 ml 60 ml Output Urine Total 775 ml 1175 ml 1000 ml Tube Feeding Residual Discard 0 ml # Bowel Movements 3 0 1 Laboratory Tests Test 03/10/17 03/11/17 03:34 05:40 White Blood Count 15.8 TH/MM3 15.2 TH/MM3 Red Blood Count 5.13 MIL/MM3 5.02 MIL/MM3 Hemoglobin 15.2 GM/DL 15.2 GM/DL Hematocrit 47.8 % 47.0 % Mean Corpuscular Volume 93.1 FL 93.6 FL Mean Corpuscular Hemoglobin 29.7 PG 30.3 PG Mean Corpuscular Hemoglobin 31.9 % 32.3 % Concent Red Cell Distribution Width 16.4 % 16.6 % Platelet Count 130 TH/MM3 116 TH/MM3 Mean Platelet Volume 10.2 FL 10.2 FL Neutrophils (%) (Auto) 92.5 % Lymphocytes (%) (Auto) 2.5 % Monocytes (%) (Auto) 4.9 % Eosinophils (%) (Auto) 0.0 % Basophils (%) (Auto) 0.1 % Neutrophils # (Auto) 14.6 TH/MM3 Lymphocytes # (Auto) 0.4 TH/MM3 Monocytes # (Auto) 0.8 TH/MM3 Eosinophils # (Auto) 0.0 TH/MM3 Basophils # (Auto) 0.0 TH/MM3 CBC Comment DIFF FINAL Differential Comment Laboratory Tests Test 03/09/17 03/10/17 03/11/17 21:07 03:34 05:40 Sodium Level 145 MEQ/L 146 MEQ/L 145 MEQ/L Potassium Level 3.5 MEQ/L 3.5 MEQ/L 4.8 MEQ/L Chloride Level 93 MEQ/L 93 MEQ/L 100 MEQ/L Carbon Dioxide Level 44.4 MEQ/L 43.7 MEQ/L 40.7 MEQ/L Anion Gap 8 MEQ/L 9 MEQ/L 4 MEQ/L Blood Urea Nitrogen 74 MG/DL 85 MG/DL 70 MG/DL Creatinine 1.98 MG/DL 1.85 MG/DL 1.05 MG/DL Estimat Glomerular Filtration 34 ML/MIN 37 ML/MIN 70 ML/MIN Rate Random Glucose 118 MG/DL 123 MG/DL 133 MG/DL Calcium Level 9.2 MG/DL 10.0 MG/DL 9.8 MG/DL Phosphorus Level 3.7 MG/DL 2.9 MG/DL Magnesium Level 3.2 MG/DL 3.1 MG/DL Total Bilirubin 0.6 MG/DL Direct Bilirubin 0.2 MG/DL Indirect Bilirubin 0.4 MG/DL Aspartate Amino Transf 27 U/L (AST/SGOT) Alanine Aminotransferase 31 U/L (ALT/SGPT) Alkaline Phosphatase 76 U/L Total Protein 6.9 GM/DL Albumin 2.8 GM/DL Microbiology Date/Time Procedure Status Source Growth 03/09/17 11:23 Gram Stain - Final Resulted Sputum Nasal Tracheal Aspirate 03/09/17 11:23 Sputum Culture - Preliminary Resulted Staphylococcus Aureus 03/09/17 11:23 Urine Culture - Final Complete Urine Catheterized Urine NO GROWTH IN 48 HOURS. 03/09/17 20:22 Aerobic Blood Culture - Preliminary Resulted Blood Peripheral Staphylococcus Epidermidis 03/09/17 20:22 Anaerobic Blood Culture - Preliminary Resulted Blood Peripheral NO GROWTH IN 2 DAYS 03/09/17 20:28 Aerobic Blood Culture - Preliminary Resulted Blood Peripheral Gram Positive Cocci 03/09/17 20:28 Anaerobic Blood Culture - Preliminary Resulted Gram Positive Cocci Imaging Chest X-Ray 03/11/17 0600 Signed Impressions: Service Date/Time: Saturday, March 11, 2017 04:03 - CONCLUSION: 1. Bilateral lower lobe atelectasis versus pneumonia. There has been no significant change when compared to the prior exam. Lavell Maciel MD Chest X-Ray 03/09/17 0000 Signed Impressions: Service Date/Time: Thursday, March 09, 2017 15:21 - CONCLUSION: No definite pneumothorax. Jayro Barry MD Chest X-Ray 03/08/17 0600 Signed Impressions: Service Date/Time: February 02:25 - CONCLUSION: Slight improvement of bibasilar densities. Fernando Mack MD CT Angiography 03/02/17 1206 Signed Impressions: Service Date/Time: Thursday, March 02, 2017 13:46 - CONCLUSION: 1. No pulmonary embolus identified. 2. Small bilateral effusions with significant dependent atelectasis bilaterally. Riley Bob MD Lower Extremity Ultrasound 02/27/17 0000 Signed Impressions: Service Date/Time: Monday, February 27, 2017 08:31 - CONCLUSION: Normal examination. Nick Farrell MD Abdomen X-Ray 02/24/17 0000 Signed Impressions: Service Date/Time: Friday, February 24, 2017 10:43 - CONCLUSION: 1. Nasogastric tube just across the GE junction. 2. Minimal nonspecific bowel gas dilatation. Artur Bob MD FACR Assessment and Plan IMPRESSION Leukocytosis/fever. Bacteremia. Gram positive cocci. Respiratory failure, CHF, ARDS - has known ischemic cardiomyopathy RECOMMENDATION Stop Zyvox. Start Vancomycin. Stop Diflucan. Monitor blood cultures. Monitor progress Esvin Mae MD Mar 11, 2017 12:56
[2017-03-11] MEDS ORDERED: Vancomycin Consult Pharmacy 1 EA OTHER SCH (13:00)
[2017-03-11] MEDS: VANCOMYCIN INJ 1,700 MG in SODIUM CHLORID 0.9% 500 ML INJ 500 ML IV SCH (15:41)
[2017-03-11 16:36] LABS: BLOOD GAS BASE EXCESS 15.3 mmol/L (-2-2); BLOOD GAS CARBOXYHEMOGLOBIN 1.1 % (0-4); BLOOD GAS HCO3 40 mmol/L (22-26); BLOOD GAS METHEMOGLOBIN 1.2 % (0-2); BLOOD GAS O2 HGB SATURATION 93 % (90-100); BLOOD GAS OXYGEN CONTENT 19.7 Vol % (12.0-20.0); BLOOD GAS PCO2 58 mmHg (38-42); BLOOD GAS PO2 81 mmHg (61-120); CRITICAL VALUE YES; DRAW SITE RT RADIAL; FIO2 90 %; NUMBER OF ARTERIAL PUNCTURES 1; OXYGEN DEVICE VENTILATOR; STAT NO; TEMP CORR TO 98.6; ULNAR PULSE PRESENT; VENT SETTINGS PC/AC RATE 12
[2017-03-11] MEDS: SODIUM CHLORIDE 0.9% FLUSH 10 ML FLUSH IVF PRN (20:14)
[2017-03-11] MEDS: ATORVASTATIN 40 MG TAB PO SCH (21:36)
[2017-03-12] VITALS (18 sets, daily range): BP systolic 112–179; BP diastolic 67–87; PULSE 97–119; RESP 12–16; TEMP 99.4–101.7; O2SAT 90–95
[2017-03-12] MEDS: fentaNYL DRIP 250 ML IV SCH ×3 (00:12→19:50)
[2017-03-12] MEDS: ACETAMINOPHEN 325 MG TAB PO PRN ×2 (00:12→14:18)
[2017-03-12] MEDS: PROPOFOL 1000 MG/100 ML INJ 100 ML IV SCH ×5 (02:36→23:34)
[2017-03-12] MEDS: CHLORHEXIDINE GLUCONATE 2 % 1 PACK (2 CLOTHS) TOP SCH (03:58)
[2017-03-12] MEDS: POTASSIUM CHLORIDE 25 MEQ EFFERVESCENT TAB PO SCH (03:58)
[2017-03-12] MEDS: INSULIN NovoLIN REGULAR SUPPLEMENTAL SCALE SQ SCH ×4 (05:00→23:00)
[2017-03-12] MEDS: HEPARIN SODIUM - SQ 10,000 UNITS/ML VIAL SQ SCH ×3 (05:53→20:43)
[2017-03-12] MEDS: EPOPROSTENOL NEB SOLUTION 50 NG/KG/MIN 100 ML NEB SCH ×6 (05:53→20:42)
[2017-03-12 05:57] LABS: AUTOMATED NEUTROPHIL # 13.5 TH/MM3 (1.8-7.7); BASOPHIL % 0.1 % (0.0-2.0); HEMATOCRIT 46.3 % (39.0-51.0); HEMO FLAGS DIFF FINAL; LYMPHOCYTE # 0.3 TH/MM3 (1.0-4.8); MEAN CELL VOLUME 92.8 FL (80.0-100.0); MEAN CORPUSCULAR HGB CONC 32.3 % (32.0-36.0); MONO % 6.4 % (0.0-8.0); NEUT % 91.5 % (16.0-70.0); PLATELET COUNT 124 TH/MM3 (150-450); RED BLOOD COUNT 4.98 MIL/MM3 (4.50-5.90); RED CELL DISTRIBUTION WIDTH 16.3 % (11.6-17.2); WHITE BLOOD COUNT 14.7 TH/MM3 (4.0-11.0)
[2017-03-12 06:03] LABS: BLOOD GAS BASE EXCESS 13.8 mmol/L (-2-2); BLOOD GAS CARBOXYHEMOGLOBIN 1.2 % (0-4); BLOOD GAS HCO3 39 mmol/L (22-26); BLOOD GAS METHEMOGLOBIN 1.4 % (0-2); BLOOD GAS O2 HGB SATURATION 90 % (90-100); BLOOD GAS OXYGEN CONTENT 19.1 Vol % (12.0-20.0); BLOOD GAS PCO2 60 mmHg (38-42); BLOOD GAS PO2 69 mmHg (61-120); BLOOD GAS TOTAL HGB 15.2 G/DL (12.0-16.0); TEMP CORR TO 98.6
[2017-03-12 06:04] LABS: CRITICAL VALUE YES; OXYGEN DEVICE VENTILATOR
[2017-03-12 06:05] LABS: DRAW SITE LT FOOT; FIO2 90 %; NUMBER OF ARTERIAL PUNCTURES 1; STAT NO; VENT SETTINGS PC/AC
[2017-03-12 06:12] LABS: BICARBONATE 38.5 MEQ/L (21.0-32.0); MAGNESIUM 2.7 MG/DL (1.5-2.5); POTASSIUM 5.1 MEQ/L (3.5-5.1)
[2017-03-12] MEDS: LACTULOSE SYRUP 20 GM/30 ML CUP PO SCH ×2 (09:00→20:43)
[2017-03-12] MEDS: DOCUSATE SODIUM 100 MG/10 ML UDC PO SCH ×2 (09:00→20:43)
[2017-03-12] MEDS: SENNOSIDES SYRUP 8.8 MG/5 ML CUP PO SCH (09:00)
--- NOTE | 2017-03-12 09:25 | HHI.CCPN ---
Subjective Remarks/Hospital Course The patient is a 66-year-old male with past medical history of COPD, cardiomyopathy, hypertension, gastroesophageal reflux disease, hyperlipidemia and coronary artery disease. The patient presented to [facility] ED with a 2-week history of progressive worsening shortness of breath. On arrival to the ED he was initially placed on a non-rebreather mask and ABG was performed which showed acute hypercapnic respiratory failure with a pH of 7.14, CO2 121, pAO2 141, bicarb 40, sats 93%. His laboratory data significant for hyperkalemia with potassium level 6.0 and acute renal failure with a BUN of 43 and creatinine 2.07 respectively. The chest x-ray showed cardiomegaly and findings of vascular congestion without overt failure. In the ED the patient was intubated with etomidate and rocuronium and placed on full mechanical ventilation. In addition, he is scheduled to receive 10 units IV regular insulin, 1 amp of D50 and calcium gluconate for hyperkalemia. He received cefepime, azithromycin, Solu-Medrol 125 milligrams IV push and bronchodilator treatment. When seen the patient is on Diprivan infusion for sedation and full mechanical ventilation. Per the patient is not on any oxygen at home and he occasionally smokes cigarettes. 02/24 Patient is intubated and sedated with Diprivan and Fentanyl. Switched to PC/ AC with RR 12, IP:24, IT:1.06, PEEP: 8 and FIO2 100%. CXR this morning showed interval development of bilateral perihilar and lower lung zone airspace opacity he was given Lasix 60mg total overnight. 02/25 Patient remains sedated and intubated with Diprivan and Fentanyl. Afebrile.On PC/AC with RR 12, IP:22, IT:1.10, PEEP:10, FIO2 70%. Afebrile. Renal function worse today with Cr: 1.90 from 1.72 UO: 1150ml in 24 hrs 02/26 No acute events overnight. Sedated with Fentanyl and Diprivan and intubated. Afebrile. His O2 requirements is less now on PC/AC with IP:22, IT: 1.1 with PEEP: 10 and FIO2 55%. Renal function improving with Cr: 1.42 today from 1.90. Tolerating tube feeds. 02/27 Patient remains sedated with Diprivan and Fentanyl infusion and intubated. Afebrile. 02/28: Remains sedated, orally intubated on mechanical ventilation. Being diuresed with Bumex. Tolerating tube feeds. 03/01: Remains sedated, orally intubated on mechanical ventilation. Being diabetes. Remains on PEEP of 10 and FiO2 60% 03/02 Patient remains sedated with Diprivan and Fentanyl and intubated. On PC/AC with PEEP: 10 and FIO2 80% overnight and sats 93-94%. Afebrile. 03/03: The patient remains on high respiratory requirements PEEP of 10, and FiO2 70%. 03/04: Tmax 99.9. Overnight the patient was noted to have desaturations the patient received a bolus of midazolam and fentanyl for ventilator dyssynchrony. The patient was redosed with Diamox with approximately 2.5 L diuresis in the last 12 hours. The patient continues on an FiO2 of 70% with PEEP of 10 to maintain an O2 sat of 90%. 03/05: Afebrile. Patient's FiO2 remains at 60% to maintain O2sat ranging in 92% . Future plans for tracheostomy discussed with when ventilator requirements are decreased. Patient currently is on a PEEP of 10. Patient receiving multiple doses of diuretics chest x-ray still showing increased vascular congestion. Cardiology following metalazone added to medication regimen per cardiology for diuresis. 03/06: Patient's O2 requirements were increased overnight to FiO2 of 90%. The patient's FiO2 has been decreased now currently to 70% O2 sat is 90% ABG is pending. The patient's diuresis effective, 1 kg weight loss in 24 hours. 03/07: The patient continues to have effective diuresis. The patient's O2 requirements currently FiO2 is 70% to maintain a sat of 90-91%. Discussion with Ms. London yesterday, she would like to discuss with palliative team goals of care. Palliative care consult initiated. 03/08: The patient was less responsive to diuretics today, positive weight balance last 24 hours. The patient was placed on a Lasix infusion, noted occasional PVCs on telemetry. Patient potassium repletion ongoing, schedule potassium PO intake increased to 50 mEq twice a day. Free water flushes placed on hold, was sodium level 145 will continue to monitor. Chest x-ray shows slight improvement. Continued management of ventilator settings ARDS protocol, maintaining PaO2 60 or greater and adjusting vent settings based on PaO2. Sedation vacation attempted today by COMPUTER COMPOSITOR, GCS 11T. Noted WBC elevation today ID consulted. 03/09: Today the patient was noted to have increasing FiO2 requirements with a PaO2 of 61. FiO2 was increased to 100%, PEEP was gradually increased to 12, then 14. The patient subsequently became hypotensive, likely due to increasing PEEP, but chest x-ray also obtained to rule out pneumothorax which was clear. The patient subsequently was laced on phenylephrine low-dose 20 mcgs which was eventually weaned off. The patient was placed on PEEP at 7 and FiO2 of 100%, sedation was weaned to lower dose. Palliative care also discussed with goals of care and the patient was made DNR. 03/10 noted creatinine elevation last night, Lasix discontinued. Dobutamine initiated per cardiology this morning. The patient continues to have high requirements on a PEEP of 8 and FiO2 of 100% his PaO2 49.2. PEEP has been increased plan to initiate Flolan. 03/11: Tmax 100.5. FRANK resolved with dobutamine infusion, heart rate 110. Microbiology report bacteremia gram-positive cocci and sputum. Patient currently on Diflucan. Will begin Linezolid in the setting of recent FRANK and oliguria, and await further recommendations from infectious disease [employer] consultant. Respiratory status deteriorating. The patient was placed on Flolan last night PaO2 67. Patient remains on a PEEP of 10, unable to advance secondary to hypotension. 03/12 Patient remains sedated with Diprivan, Fentanyl and intubated. On Dobutamine 2.5 mics and Flolan. Remains On PC/AC with RR 12, IP:22, IT:1.20, PEEP;10 and FIo2 90%. Afebrile. Objective Vital Signs Date Time Temp Pulse Resp B/P Pulse Ox O2 Delivery O2 Flow Rate FiO2 03/12/17 08:50 95 90 03/12/17 06:00 101 03/12/17 04:00 99.4 12 179/87 Intake and Output 03/11/17 03/11/17 03/12/17 08:00 16:00 00:00 Intake Total 957 ml 1444 ml 1470 ml Output Total 1000 ml 1000 ml 800.0 ml Balance -43 ml 444 ml 670.0 ml Result Diagram: 03/12/17 0504 03/12/17 0504 Other Results Laboratory Tests Test 03/11/17 03/12/17 03/12/17 16:27 05:04 05:56 Blood Gas Puncture Site RT RADIAL LT FOOT Blood Gas Patient Temperature 98.6 98.6 Blood Gas HCO3 40 mmol/L 39 mmol/L Blood Gas Base Excess 15.3 mmol/L 13.8 mmol/L Blood Gas Oxygen Saturation 93 % 90 % Arterial Blood pH 7.46 7.43 Arterial Blood Partial 58 mmHg 60 mmHg Pressure CO2 Arterial Blood Partial 81 mmHg 69 mmHg Pressure O2 Arterial Blood Oxygen Content 19.7 Vol % 19.1 Vol % Arterial Blood 1.1 % 1.2 % Carboxyhemoglobin Arterial Blood Methemoglobin 1.2 % 1.4 % Blood Gas Hemoglobin 15.0 G/DL 15.2 G/DL Oxygen Delivery Device VENTILATOR VENTILATOR Blood Gas Ventilator Setting PC/AC RATE 12 PC/AC Blood Gas Inspired Oxygen 90 % 90 % White Blood Count 14.7 TH/MM3 Red Blood Count 4.98 MIL/MM3 Hemoglobin 14.9 GM/DL Hematocrit 46.3 % Mean Corpuscular Volume 92.8 FL Mean Corpuscular Hemoglobin 30.0 PG Mean Corpuscular Hemoglobin 32.3 % Concent Red Cell Distribution Width 16.3 % Platelet Count 124 TH/MM3 Mean Platelet Volume 10.1 FL Neutrophils (%) (Auto) 91.5 % Lymphocytes (%) (Auto) 2.0 % Monocytes (%) (Auto) 6.4 % Eosinophils (%) (Auto) 0.0 % Basophils (%) (Auto) 0.1 % Neutrophils # (Auto) 13.5 TH/MM3 Lymphocytes # (Auto) 0.3 TH/MM3 Monocytes # (Auto) 0.9 TH/MM3 Eosinophils # (Auto) 0.0 TH/MM3 Basophils # (Auto) 0.0 TH/MM3 CBC Comment DIFF FINAL Differential Comment Sodium Level 146 MEQ/L Potassium Level 5.1 MEQ/L Chloride Level 103 MEQ/L Carbon Dioxide Level 38.5 MEQ/L Anion Gap 5 MEQ/L Blood Urea Nitrogen 51 MG/DL Creatinine 0.76 MG/DL Estimat Glomerular Filtration 102 ML/MIN Rate Random Glucose 125 MG/DL Calcium Level 10.3 MG/DL Phosphorus Level 3.1 MG/DL Magnesium Level 2.7 MG/DL Imaging Last Impressions Chest X-Ray 03/11/17 0600 Signed Impressions: Service Date/Time: Saturday, March 11, 2017 04:03 - CONCLUSION: 1. Bilateral lower lobe atelectasis versus pneumonia. There has been no significant change when compared to the prior exam. Lavell Maciel MD CT Angiography 03/02/17 1206 Signed Impressions: Service Date/Time: Thursday, March 02, 2017 13:46 - CONCLUSION: 1. No pulmonary embolus identified. 2. Small bilateral effusions with significant dependent atelectasis bilaterally. Riley Bob MD Lower Extremity Ultrasound 02/27/17 0000 Signed Impressions: Service Date/Time: Monday, February 27, 2017 08:31 - CONCLUSION: Normal examination. Nick Farrell MD Abdomen X-Ray 02/24/17 0000 Signed Impressions: Service Date/Time: Friday, February 24, 2017 10:43 - CONCLUSION: 1. Nasogastric tube just across the GE junction. 2. Minimal nonspecific bowel gas dilatation. Artur Bob MD FACR Objective Remarks GENERAL: Patient is 66 yo obese male intubated and sedated SKIN: Warm and dry. HEAD: Normocephalic. EYES: No scleral icterus. No injection or drainage. NECK: Supple, trachea midline. No JVD or lymphadenopathy. CARDIOVASCULAR: Regular rate and rhythm without murmurs, gallops, or rubs. RESPIRATORY: On mechanical ventilation, orally intubated, Breath sounds equal bilaterally. Few Coarse BS GASTROINTESTINAL: Abdomen soft, non-tender, nondistended. OGT, tube feedings infusing MUSCULOSKELETAL: 2+ bilateral edema in upper extremities. Neuro: Sedated, intubated Date of Removal: Mar 04, 2017 Line: Central Venous Catheter Side: Right A/P Assessment and Plan 1. Acute hypercapnic and hypoxemic respiratory failure. 2. COPD exacerbation. 3. Acute renal failure. 4. Hyperkalemia. 5. Obstructive sleep apnea and morbid obesity. 6. Ischemic dilated Cardiomyopathy. S/P AICD 03/2015 7. History of coronary artery disease. 8. Gastroesophageal reflux disease. 9. Hypertension. 10. Hyperlipidemia. 11 Pulm edema 12. Acute on chronic systolic and diastolic CHF 13. Pulmonary hypertension 14. Bacteremia Plan: Neuro: On Diprivan and Fentanyl infusion for sedation. Daily sedation vacation when appropriate. CV: Monitor HR and BP keep MAP>65mmHg On aspirin 325 milligrams p.o. daily and Plavix 75 mg p.o. daily. Prinivil 5mg daily 01/2017 Echo showed EF 40-45%, nl LV diastolic function, No RWMA Cardiology following-Dr. Cole 03/10-patient placed on dobutamine infusion 2.5 mics per cardiology, resolution of FRANK with increase in cardiac output Pulm: On PC/AC RR 12, IP:22, IT:1.1 PEEP: 10, FIO2: 90%, decrease FIO2 as kristie. Increase PEEP: 12 Continue with vent support and maintain sats above 92%. CXR-bilateral consolidation in bases, atelectasis, possible effusions Bronchodilators every 4 hours, Solu-Medrol 40 mg IV BID. Pulm-Dr. Lashell Padron following CTA chest 03/02 showed no PE, small pleural effusions Continue with Flolan nebs 8ml/hr(30,000 ng/ml) : Monitor renal function Is and Os and avoid nephrotoxins. Electrolytes replacement per protocol. Diurese with Bumex 1mg x1 Renal function continue to improve with Cr:0.76 today GI: On Protonix 40 milligrams IV daily for GI prophylaxis. On TF- Glucerna 1.5 @45ml/hr, no residual Senna, Colace for bowel regimen, Lactulose 15mg BID, 02/24 KUB abdomen: Minimal non-specific bowel gas dilatation ID:Continue with abx per ID(Vancomycin) monitor for signs of infections ( Fever , WBC) check BC x 2 sets today and sputum cx 03/09 Repeat Bld cultures-staph aureus 03/09 Repeat sputum culture-staph aureus Heme: Monitor CBC. Endo: SSI with Accu-Chek q. 6-hour for glycemic control. GI prophylaxis with Protonix 40 mg daily and DVT prophylaxis with SCDs and heparin SQ Doppler US LE No DVT on 02/27 Dispo: Discussed patient with COMPUTER COMPOSITOR. Palliative care following. CCT 30 mins Georgia Ocampo MD Mar 12, 2017 09:25
[2017-03-12] MEDS: VANCOMYCIN INJ 1,700 MG in SODIUM CHLORID 0.9% 500 ML INJ 500 ML IV SCH (09:44)
[2017-03-12] MEDS: DOBUTamine PREMIX DRIP 250 ML IV SCH (09:46)
[2017-03-12] MEDS: CLOPIDOGREL 75 MG TAB PO SCH (09:47)
[2017-03-12] MEDS: LISINOPRIL 5 MG TAB PO SCH (09:47)
[2017-03-12] MEDS: ASPIRIN 325 MG TAB PO SCH (09:47)
[2017-03-12] MEDS: PANTOPRAZOLE SODIUM 40 MG VIAL IV SCH (09:50)
[2017-03-12] MEDS: methylPREDNISolone SOD SUCC 40 MG/1 ML VIAL IV PUSH SCH ×2 (09:50→20:43)
[2017-03-12] MEDS: CHLORHEXIDINE 0.12% (ORAL KIT) 15 ML CUP MT SCH ×2 (09:51→20:43)
[2017-03-12] MEDS ORDERED: BUMETANIDE INJ 1 MG/4 ML VIAL IV PUSH ONE (10:30)
--- NOTE | 2017-03-12 14:16 | PD.CARD.PN ---
Subjective Subjective Remarks no improvement FIO2 80% and PEEP 12 + BC Objective Medications Active Medications Bumetanide (Bumex Inj) 1 mg ONCE ONCE IV PUSH Last administered on 03/12/17 10 :21; Admin Dose 1 MG; Start 03/12/17 at 10:30; Stop 03/12/17 at 10:31; Status DC Miscellaneous Information SPECIFIC LAB TO BE DRAWN:VANCOMY... ONCE ONCE .XX; Start 03/13/17 at 21:45; Stop 03/13/17 at 21:46 Vancomycin HCl/ Sodium Chloride (Vancomycin Inj/ NS 500 ml Inj) 517 ml @ 250 mls/hr Q18H IV Last administered on 03/12/17 09:44; Admin Dose 250 MLS/HR; Start 03/11/17 at 16:00 Vital Signs / I&O Vital Signs Date Time Temp Pulse Resp B/P Pulse Ox O2 Delivery O2 Flow Rate FiO2 03/12/17 12:00 80 03/12/17 11:32 91 80 03/12/17 08:50 95 90 03/12/17 08:00 90 03/12/17 06:00 101 03/12/17 04:19 93 90 03/12/17 04:00 112 03/12/17 04:00 99.4 112 12 179/87 94 03/12/17 04:00 90 03/12/17 02:00 110 03/12/17 01:10 92 90 03/12/17 00:00 101.6 119 14 156/84 90 03/12/17 00:00 90 03/12/17 00:00 119 03/11/17 22:17 94 90 03/11/17 22:00 111 03/11/17 20:00 92 90 03/11/17 20:00 90 03/11/17 20:00 101 03/11/17 20:00 99.8 101 12 174/88 94 03/11/17 18:00 111 03/11/17 16:12 96 90 03/11/17 16:00 111 03/11/17 16:00 100.1 111 15 144/72 96 03/11/17 16:00 100 I/O 03/11/17 03/11/17 03/11/17 03/12/17 03/12/17 03/12/17 07:00 15:00 23:00 07:00 15:00 23:00 Intake Total 957 ml 1444 ml 1470 ml 1019 ml Output Total 1000 ml 1000 ml 800 ml 800 ml Balance -43 ml 444 ml 670 ml 219 ml IV Total 519 ml 854 ml 1047 ml 582 ml Tube Feeding 378 ml 470 ml 363 ml 377 ml Other 60 ml 120 ml 60 ml 60 ml Output Urine Total 1000 ml 1000 ml 800 ml 800 ml Stool Total 0 ml Tube Feeding Residual Discard 0 ml 0 ml # Bowel Movements 1 0 0 1 Physical Exam CARDIOVASCULAR: tachycardiac irregular RESPIRATORY: Breath sounds equal bilaterally. No accessory muscle use. GASTROINTESTINAL: Abdomen soft, non-tender, nondistended. MUSCULOSKELETAL: No cyanosis, or edema. Laboratory Laboratory Tests Test 03/11/17 03/12/17 03/12/17 16:27 05:04 05:56 Blood Gas Puncture Site RT RADIAL LT FOOT Blood Gas Patient Temperature 98.6 98.6 Blood Gas HCO3 40 mmol/L 39 mmol/L Blood Gas Base Excess 15.3 mmol/L 13.8 mmol/L Blood Gas Oxygen Saturation 93 % 90 % Arterial Blood pH 7.46 7.43 Arterial Blood Partial 58 mmHg 60 mmHg Pressure CO2 Arterial Blood Partial 81 mmHg 69 mmHg Pressure O2 Arterial Blood Oxygen Content 19.7 Vol % 19.1 Vol % Arterial Blood 1.1 % 1.2 % Carboxyhemoglobin Arterial Blood Methemoglobin 1.2 % 1.4 % Blood Gas Hemoglobin 15.0 G/DL 15.2 G/DL Oxygen Delivery Device VENTILATOR VENTILATOR Blood Gas Ventilator Setting PC/AC RATE 12 PC/AC Blood Gas Inspired Oxygen 90 % 90 % White Blood Count 14.7 TH/MM3 Red Blood Count 4.98 MIL/MM3 Hemoglobin 14.9 GM/DL Hematocrit 46.3 % Mean Corpuscular Volume 92.8 FL Mean Corpuscular Hemoglobin 30.0 PG Mean Corpuscular Hemoglobin 32.3 % Concent Red Cell Distribution Width 16.3 % Platelet Count 124 TH/MM3 Mean Platelet Volume 10.1 FL Neutrophils (%) (Auto) 91.5 % Lymphocytes (%) (Auto) 2.0 % Monocytes (%) (Auto) 6.4 % Eosinophils (%) (Auto) 0.0 % Basophils (%) (Auto) 0.1 % Neutrophils # (Auto) 13.5 TH/MM3 Lymphocytes # (Auto) 0.3 TH/MM3 Monocytes # (Auto) 0.9 TH/MM3 Eosinophils # (Auto) 0.0 TH/MM3 Basophils # (Auto) 0.0 TH/MM3 CBC Comment DIFF FINAL Differential Comment Sodium Level 146 MEQ/L Potassium Level 5.1 MEQ/L Chloride Level 103 MEQ/L Carbon Dioxide Level 38.5 MEQ/L Anion Gap 5 MEQ/L Blood Urea Nitrogen 51 MG/DL Creatinine 0.76 MG/DL Estimat Glomerular Filtration 102 ML/MIN Rate Random Glucose 125 MG/DL Calcium Level 10.3 MG/DL Phosphorus Level 3.1 MG/DL Magnesium Level 2.7 MG/DL Imaging Last Impressions Chest X-Ray 03/11/17 0600 Signed Impressions: Service Date/Time: Saturday, March 11, 2017 04:03 - CONCLUSION: 1. Bilateral lower lobe atelectasis versus pneumonia. There has been no significant change when compared to the prior exam. Lavell Maciel MD CT Angiography 03/02/17 1206 Signed Impressions: Service Date/Time: Thursday, March 02, 2017 13:46 - CONCLUSION: 1. No pulmonary embolus identified. 2. Small bilateral effusions with significant dependent atelectasis bilaterally. Riley Bob MD Lower Extremity Ultrasound 02/27/17 0000 Signed Impressions: Service Date/Time: Monday, February 27, 2017 08:31 - CONCLUSION: Normal examination. Nick Farrell MD Abdomen X-Ray 02/24/17 0000 Signed Impressions: Service Date/Time: Friday, February 24, 2017 10:43 - CONCLUSION: 1. Nasogastric tube just across the GE junction. 2. Minimal nonspecific bowel gas dilatation. Artur Bob MD FACR Assessment and Plan Problem List: (1) Ischemic dilated cardiomyopathy (2) CAD (coronary artery disease) (3) Hypertension (4) COPD (chronic obstructive pulmonary disease) (5) Atrial flutter (6) COPD with acute exacerbation (7) Acute respiratory failure Assessment and Plan resp distress - despite aggressive diuresis, resp function worse. This is more pulmonary than cardiac etiology. Cr improved after discontinuation of lasix gtt and start dobutamine gtt. Consider weaning dobutamine gtt due to tachycardia. will restart Lasix IV. follow Cr closely. + BC Sepsis continue supportive care. prognosis poor. not adding much at this point to the care strategy. continue diuresis. will sign off. call with questions. Problem Qualifiers (1) Acute respiratory failure: Qualified Code: J96.02 - Acute respiratory failure with hypercapnia Slade Cole MD Mar 12, 2017 14:16
--- NOTE | 2017-03-12 16:56 | HHI.HCPN ---
Reason for visit a. To assist with evaluation and management of symptoms including:dyspnea, pain b. To assist medical decision maker(s) with: better understanding of current medical conditions; weighing benefits/burdens of medical treatment options; making medical treatment decisions. Subjective/Interval History This is a 66-year-old morbidly obese male who presented to the emergency department on 02/23/17 with complaints of shortness of breath times 2 weeks. Hx of severe COPD and CAD status post PPM/AICD with an EF of 20% He remains sedated w propofol and fentanyl on a vent with pressors. FRANK resolved with dobutamine 2.5 mics infusion; Respiratory status deteriorating placed on Flolan. Patient remains on a PEEP of 10 and FIo2 90%. with an O2 sat of 91%. .Microbiology reported bacteremia gram-positive cocci and sputum. Started on Vancomycin per ID. Tmax 101.6 in the last 24 hrs - blood cultures pending, He is unresponsive to stimuli Advance Directives Living Will: Never completed Health Care Surrogate: Never completed Durable Power of Marble Supervisor: Never completed Advance Directive Specifics Health Care Surrogate(s): Brooke Doran - [phone] (home), or [phone] (cellvoicemail not set up) Objective Vital Signs Date Time Temp Pulse Resp B/P Pulse Ox O2 Delivery O2 Flow Rate FiO2 03/12/17 14:00 119 03/12/17 12:00 99.6 109 16 146/72 91 03/12/17 12:00 80 03/12/17 12:00 109 03/12/17 11:32 91 80 03/12/17 10:00 107 03/12/17 08:50 95 90 03/12/17 08:00 90 03/12/17 08:00 97 03/12/17 08:00 100.6 97 12 157/73 94 03/12/17 06:00 101 03/12/17 04:19 93 90 03/12/17 04:00 112 03/12/17 04:00 99.4 112 12 179/87 94 03/12/17 04:00 90 03/12/17 02:00 110 03/12/17 01:10 92 90 03/12/17 00:00 101.6 119 14 156/84 90 03/12/17 00:00 90 03/12/17 00:00 119 03/11/17 22:17 94 90 03/11/17 22:00 111 03/11/17 20:00 92 90 03/11/17 20:00 90 03/11/17 20:00 101 03/11/17 20:00 99.8 101 12 174/88 94 03/11/17 18:00 111 Intake & Output 03/12/17 03/12/17 07:00 19:00 Intake Total 2489 ml 1590 ml Output Total 1600.0 ml 1400 ml Balance 889.0 ml 190 ml IV Total 1629 ml 1045 ml Tube Feeding 740 ml 425 ml Other 120 ml 120 ml Output Urine Total 1600 ml 1400 ml Tube Feeding Residual Discard 0 ml # Bowel Movements 1 0 Physical Exam CONSTITUTIONAL/GENERAL: This is an adequately nourished patient,sedated on the vent TUBES/LINES/DRAINS:central line, OG tube, orotracheal tube, catheter, SKIN: No jaundice, rashes, or lesions. Ecchymoses on upper extremities. skin tear noted Skin temperature appropriate. Not diaphoretic. HEAD: Atraumatic. Normocephalic. EYES: Pupils equal and round and reactive. . No scleral icterus. No injection or drainage. Fundi not examined. ENT:Throat without visible erythema, exudates, masses, or lesions. NECK: Trachea midline. Supple, CARDIOVASCULAR: irregular rate and rhythm w/o murmurs, gallops, or rubs. No JVD. Peripheral pulses symmetric. RESPIRATORY/CHEST: Symmetric, unlabored respirations. course coarse breath sounds anteriorly, diminished posterior - vent dependent GASTROINTESTINAL: Abdomen soft, round, No hepato-splenomegaly, or palpable masses. Bowel sounds present. GENITOURINARY: Without palpable bladder distension. catheter in place. MUSCULOSKELETAL: Extremities without clubbing, cyanosis, or edema. No mottling or clubbing. LYMPHATICS: No palpable cervical or supraclavicular adenopathy. NEUROLOGICAL: sedated on the vent; PSYCHIATRIC: unable to assess Diagnostic Tests Laboratory Laboratory Tests Test 03/09/17 03/09/17 03/10/17 03/10/17 16:45 21:07 03:34 10:08 Blood Gas Puncture Site RT RADIAL RT RADIAL Blood Gas Patient Temperature 98.6 98.6 Blood Gas HCO3 44 mmol/L 42 mmol/L (22-26) (22-26) Blood Gas Base Excess 18.6 mmol/L 17.2 mmol/L (-2-2) (-2-2) Blood Gas Oxygen Saturation 93 % (90-100) 84 % (90-100) Arterial Blood pH 7.44 7.46 (7.380-7.420) (7.380-7.420) Arterial Blood Partial 66 mmHg (38-42) 60 mmHg (38-42) Pressure CO2 Arterial Blood Partial 82 mmHg 55 mmHg Pressure O2 (61-120) (61-120) Arterial Blood Oxygen Content 21.6 Vol % 18.5 Vol % (12.0-20.0) (12.0-20.0) Arterial Blood 1.2 % (0-4) 1.1 % (0-4) Carboxyhemoglobin Arterial Blood Methemoglobin 1.3 % (0-2) 1.3 % (0-2) Blood Gas Hemoglobin 16.6 G/DL 15.7 G/DL (12.0-16.0) (12.0-16.0) Oxygen Delivery Device VENTILATOR VENTILATOR Blood Gas Ventilator Setting Blood Gas Inspired Oxygen 100 % 95 % Sodium Level 145 MEQ/L 146 MEQ/L (136-145) (136-145) Potassium Level 3.5 MEQ/L 3.5 MEQ/L (3.5-5.1) (3.5-5.1) Chloride Level 93 MEQ/L 93 MEQ/L (98-107) (98-107) Carbon Dioxide Level 44.4 MEQ/L 43.7 MEQ/L (21.0-32.0) (21.0-32.0) Anion Gap 8 MEQ/L (5-15) 9 MEQ/L (5-15) Blood Urea Nitrogen 74 MG/DL (7-18) 85 MG/DL (7-18) Creatinine 1.98 MG/DL 1.85 MG/DL (0.60-1.30) (0.60-1.30) Estimat Glomerular Filtration 34 ML/MIN (>89) 37 ML/MIN (>89) Rate Random Glucose 118 MG/DL 123 MG/DL (74-106) (74-106) Calcium Level 9.2 MG/DL 10.0 MG/DL (8.5-10.1) (8.5-10.1) White Blood Count 15.8 TH/MM3 (4.0-11.0) Red Blood Count 5.13 MIL/MM3 (4.50-5.90) Hemoglobin 15.2 GM/DL (13.0-17.0) Hematocrit 47.8 % (39.0-51.0) Mean Corpuscular Volume 93.1 FL (80.0-100.0) Mean Corpuscular Hemoglobin 29.7 PG (27.0-34.0) Mean Corpuscular Hemoglobin 31.9 % Concent (32.0-36.0) Red Cell Distribution Width 16.4 % (11.6-17.2) Platelet Count 130 TH/MM3 (150-450) Mean Platelet Volume 10.2 FL (7.0-11.0) Neutrophils (%) (Auto) 92.5 % (16.0-70.0) Lymphocytes (%) (Auto) 2.5 % (9.0-44.0) Monocytes (%) (Auto) 4.9 % (0.0-8.0) Eosinophils (%) (Auto) 0.0 % (0.0-4.0) Basophils (%) (Auto) 0.1 % (0.0-2.0) Neutrophils # (Auto) 14.6 TH/MM3 (1.8-7.7) Lymphocytes # (Auto) 0.4 TH/MM3 (1.0-4.8) Monocytes # (Auto) 0.8 TH/MM3 (0-0.9) Eosinophils # (Auto) 0.0 TH/MM3 (0-0.4) Basophils # (Auto) 0.0 TH/MM3 (0-0.2) CBC Comment DIFF FINAL Differential Comment Phosphorus Level 3.7 MG/DL (2.5-4.9) Magnesium Level 3.2 MG/DL (1.5-2.5) Total Bilirubin 0.6 MG/DL (0.2-1.0) Direct Bilirubin 0.2 MG/DL (0.0-0.2) Indirect Bilirubin 0.4 MG/DL (0.0-0.8) Aspartate Amino Transf 27 U/L (15-37) (AST/SGOT) Alanine Aminotransferase 31 U/L (12-78) (ALT/SGPT) Alkaline Phosphatase 76 U/L (45-117) Total Protein 6.9 GM/DL (6.4-8.2) Albumin 2.8 GM/DL (3.4-5.0) Test 03/10/17 03/10/17 03/11/17 03/11/17 16:32 18:00 05:10 05:40 Blood Gas Puncture Site RT RADIAL RT RADIAL RT RADIAL Blood Gas Patient Temperature 98.6 98.6 98.6 Blood Gas HCO3 42 mmol/L 42 mmol/L 42 mmol/L (22-26) (22-26) (22-26) Blood Gas Base Excess 17.7 mmol/L 17.6 mmol/L 16.9 mmol/L (-2-2) (-2-2) (-2-2) Blood Gas Oxygen Saturation 82 % (90-100) 84 % (90-100) 90 % (90-100) Arterial Blood pH 7.52 7.52 7.46 (7.380-7.420) (7.380-7.420) (7.380-7.420) Arterial Blood Partial 53 mmHg (38-42) 53 mmHg (38-42) 61 mmHg (38-42) Pressure CO2 Arterial Blood Partial 49 mmHg 53 mmHg 67 mmHg Pressure O2 (61-120) (61-120) (61-120) Arterial Blood Oxygen Content 18.0 Vol % 18.3 Vol % 19.8 Vol % (12.0-20.0) (12.0-20.0) (12.0-20.0) Arterial Blood 1.2 % (0-4) 1.2 % (0-4) 1.1 % (0-4) Carboxyhemoglobin Arterial Blood Methemoglobin 1.0 % (0-2) 1.3 % (0-2) 1.2 % (0-2) Blood Gas Hemoglobin 15.6 G/DL 15.5 G/DL 15.8 G/DL (12.0-16.0) (12.0-16.0) (12.0-16.0) Oxygen Delivery Device VENTILATOR VENTILATOR VENTILATOR Blood Gas Ventilator Setting PC/AC PC/AC RATE12 PC/AC Blood Gas Inspired Oxygen 100 % 100 % 100 % White Blood Count 15.2 TH/MM3 (4.0-11.0) Red Blood Count 5.02 MIL/MM3 (4.50-5.90) Hemoglobin 15.2 GM/DL (13.0-17.0) Hematocrit 47.0 % (39.0-51.0) Mean Corpuscular Volume 93.6 FL (80.0-100.0) Mean Corpuscular Hemoglobin 30.3 PG (27.0-34.0) Mean Corpuscular Hemoglobin 32.3 % Concent (32.0-36.0) Red Cell Distribution Width 16.6 % (11.6-17.2) Platelet Count 116 TH/MM3 (150-450) Mean Platelet Volume 10.2 FL (7.0-11.0) Sodium Level 145 MEQ/L (136-145) Potassium Level 4.8 MEQ/L (3.5-5.1) Chloride Level 100 MEQ/L (98-107) Carbon Dioxide Level 40.7 MEQ/L (21.0-32.0) Anion Gap 4 MEQ/L (5-15) Blood Urea Nitrogen 70 MG/DL (7-18) Creatinine 1.05 MG/DL (0.60-1.30) Estimat Glomerular Filtration 70 ML/MIN (>89) Rate Random Glucose 133 MG/DL (74-106) Calcium Level 9.8 MG/DL (8.5-10.1) Phosphorus Level 2.9 MG/DL (2.5-4.9) Magnesium Level 3.1 MG/DL (1.5-2.5) Test 03/11/17 03/12/17 03/12/17 16:27 05:04 05:56 Blood Gas Puncture Site RT RADIAL LT FOOT Blood Gas Patient Temperature 98.6 98.6 Blood Gas HCO3 40 mmol/L 39 mmol/L (22-26) (22-26) Blood Gas Base Excess 15.3 mmol/L 13.8 mmol/L (-2-2) (-2-2) Blood Gas Oxygen Saturation 93 % (90-100) 90 % (90-100) Arterial Blood pH 7.46 7.43 (7.380-7.420) (7.380-7.420) Arterial Blood Partial 58 mmHg (38-42) 60 mmHg (38-42) Pressure CO2 Arterial Blood Partial 81 mmHg 69 mmHg Pressure O2 (61-120) (61-120) Arterial Blood Oxygen Content 19.7 Vol % 19.1 Vol % (12.0-20.0) (12.0-20.0) Arterial Blood 1.1 % (0-4) 1.2 % (0-4) Carboxyhemoglobin Arterial Blood Methemoglobin 1.2 % (0-2) 1.4 % (0-2) Blood Gas Hemoglobin 15.0 G/DL 15.2 G/DL (12.0-16.0) (12.0-16.0) Oxygen Delivery Device VENTILATOR VENTILATOR Blood Gas Ventilator Setting PC/AC RATE 12 PC/AC Blood Gas Inspired Oxygen 90 % 90 % White Blood Count 14.7 TH/MM3 (4.0-11.0) Red Blood Count 4.98 MIL/MM3 (4.50-5.90) Hemoglobin 14.9 GM/DL (13.0-17.0) Hematocrit 46.3 % (39.0-51.0) Mean Corpuscular Volume 92.8 FL (80.0-100.0) Mean Corpuscular Hemoglobin 30.0 PG (27.0-34.0) Mean Corpuscular Hemoglobin 32.3 % Concent (32.0-36.0) Red Cell Distribution Width 16.3 % (11.6-17.2) Platelet Count 124 TH/MM3 (150-450) Mean Platelet Volume 10.1 FL (7.0-11.0) Neutrophils (%) (Auto) 91.5 % (16.0-70.0) Lymphocytes (%) (Auto) 2.0 % (9.0-44.0) Monocytes (%) (Auto) 6.4 % (0.0-8.0) Eosinophils (%) (Auto) 0.0 % (0.0-4.0) Basophils (%) (Auto) 0.1 % (0.0-2.0) Neutrophils # (Auto) 13.5 TH/MM3 (1.8-7.7) Lymphocytes # (Auto) 0.3 TH/MM3 (1.0-4.8) Monocytes # (Auto) 0.9 TH/MM3 (0-0.9) Eosinophils # (Auto) 0.0 TH/MM3 (0-0.4) Basophils # (Auto) 0.0 TH/MM3 (0-0.2) CBC Comment DIFF FINAL Differential Comment Sodium Level 146 MEQ/L (136-145) Potassium Level 5.1 MEQ/L (3.5-5.1) Chloride Level 103 MEQ/L (98-107) Carbon Dioxide Level 38.5 MEQ/L (21.0-32.0) Anion Gap 5 MEQ/L (5-15) Blood Urea Nitrogen 51 MG/DL (7-18) Creatinine 0.76 MG/DL (0.60-1.30) Estimat Glomerular Filtration 102 ML/MIN Rate (>89) Random Glucose 125 MG/DL (74-106) Calcium Level 10.3 MG/DL (8.5-10.1) Phosphorus Level 3.1 MG/DL (2.5-4.9) Magnesium Level 2.7 MG/DL (1.5-2.5) Result Diagram: 03/12/17 0504 03/12/17 0504 Microbiology Microbiology Date/Time Procedure Status Source Growth 03/09/17 20:22 Aerobic Blood Culture - Preliminary Resulted Blood Peripheral Staphylococcus Epidermidis 03/09/17 20:22 Anaerobic Blood Culture - Preliminary Resulted Blood Peripheral NO GROWTH IN 3 DAYS 03/09/17 20:28 Aerobic Blood Culture - Preliminary Resulted Blood Peripheral Staph Sp Coagulase Negative 03/09/17 20:28 Anaerobic Blood Culture - Preliminary Resulted Staph Sp Coagulase Negative 03/12/17 10:40 Aerobic Blood Culture Received Blood Peripheral Pending 03/12/17 10:40 Anaerobic Blood Culture Received Blood Peripheral Pending 03/12/17 10:46 Aerobic Blood Culture Received Blood Peripheral Pending 03/12/17 10:46 Anaerobic Blood Culture Received Blood Peripheral Pending Imaging Chest X-Ray 03/11/17 0600 Signed Impressions: Service Date/Time: Saturday, March 11, 2017 04:03 - CONCLUSION: 1. Bilateral lower lobe atelectasis versus pneumonia. There has been no significant change when compared to the prior exam. 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 in need of pressors for BP and renal support. Code Status: Full Code Plan Decision Maker: Brooke Doran, , or [phone] Code Status: full code at this time - does not want to make any decisions until after Easter Family Discussion: was not present at the time of my visit. Call placed to her. In my last conversation she indicated that she is very distraught re his decline. She is a strong Latter Day woman and believes that God will heal his lungs. She does not want him to go to a skilled nursing or for him to have a trach for "a long time". She states she is not ready to let him go and right now doesn't want to make any decisions before Easter - hoping for a miracle. She states that he woke up yesterday, saw her and shed a tear. She is hopeful that he will recover. She is provided as much information relative to the gravity of his illness and likelihood for recovery: elevated WBC and likely infection; high pressure on vent; declining O2 status; declining BP's; cardiac arrhythmia. She is overwhelmed by the information and returns to the Bible for comfort. Symptoms: pain, dyspnea Palliative care phone number provided - will follow during hospital stay. Attestation To help prompt me to consider important information that might be impacting today's encounter and assessment, information from prior notes written by myself or my colleagues may have been "brought forward" into today's note. My signature on this note, however, is an attestation that I personally performed the exam, history, and/or decision-making noted today, and, unless otherwise indicated, the interactions with patient, family, and staff as well as the review of records all occurred today. I also attest that the listed assessment and stated plan reflect my best clinical judgment today based on the combination of historical information, prior notes, and today's exam/ interactions. When time spent is documented, it refers only to time spent today by the signer, or if indicated, combined time spent today by collaborating physician/nurse practitioner. Della Hoffman Mar 12, 2017 16:56
[2017-03-12] MEDS: FUROSEMIDE 40 MG/4 ML VIAL IV PUSH SCH (17:33)
--- NOTE | 2017-03-12 17:35 | HHI.IDPN ---
Subjective Subjective Remarks Notes reviewed No fever Remains on vent, FiO2 at 0.8 BC with Coag Neg Staph Sputum with MSSA WBC same CXR stable infiltrates BP ok, no on pressors Antibiotics Vancomycin Past Medical History COPD Coronary artery disease with stent to the RCA Cardiomyopathy Arthritis Sleep apnea Hyperlipidemia. Past Surgical History CABG Appendectomy Fracture, and has hardware in left forearm. Defibrillator/pacer placement. Allergies: Coded Allergies: No Known Allergies (Verified , 02/23/17) Objective . Vital Signs Date Time Temp Pulse Resp B/P Pulse Ox O2 Delivery O2 Flow Rate FiO2 03/12/17 17:17 93 80 03/12/17 14:00 119 03/12/17 12:00 99.6 109 16 146/72 91 03/12/17 12:00 80 03/12/17 12:00 109 03/12/17 11:32 91 80 03/12/17 10:00 107 03/12/17 08:50 95 90 03/12/17 08:00 90 03/12/17 08:00 97 03/12/17 08:00 100.6 97 12 157/73 94 03/12/17 06:00 101 03/12/17 04:19 93 90 03/12/17 04:00 112 03/12/17 04:00 99.4 112 12 179/87 94 03/12/17 04:00 90 03/12/17 02:00 110 03/12/17 01:10 92 90 03/12/17 00:00 101.6 119 14 156/84 90 03/12/17 00:00 90 03/12/17 00:00 119 03/11/17 22:17 94 90 03/11/17 22:00 111 03/11/17 20:00 92 90 03/11/17 20:00 90 03/11/17 20:00 101 03/11/17 20:00 99.8 101 12 174/88 94 03/11/17 18:00 111 03/11/17 03/11/17 03/12/17 15:00 23:00 07:00 Intake Total 1444 ml 1470 ml 1019 ml Output Total 1000 ml 800 ml 800 ml Balance 444 ml 670 ml 219 ml IV Total 854 ml 1047 ml 582 ml Tube Feeding 470 ml 363 ml 377 ml Other 120 ml 60 ml 60 ml Output Urine Total 1000 ml 800 ml 800 ml Stool Total 0 ml Tube Feeding Residual Discard 0 ml 0 ml # Bowel Movements 0 0 1 . Laboratory Tests Test 03/11/17 03/12/17 05:40 05:04 White Blood Count 15.2 TH/MM3 14.7 TH/MM3 Red Blood Count 5.02 MIL/MM3 4.98 MIL/MM3 Hemoglobin 15.2 GM/DL 14.9 GM/DL Hematocrit 47.0 % 46.3 % Mean Corpuscular Volume 93.6 FL 92.8 FL Mean Corpuscular Hemoglobin 30.3 PG 30.0 PG Mean Corpuscular Hemoglobin 32.3 % 32.3 % Concent Red Cell Distribution Width 16.6 % 16.3 % Platelet Count 116 TH/MM3 124 TH/MM3 Mean Platelet Volume 10.2 FL 10.1 FL Neutrophils (%) (Auto) 91.5 % Lymphocytes (%) (Auto) 2.0 % Monocytes (%) (Auto) 6.4 % Eosinophils (%) (Auto) 0.0 % Basophils (%) (Auto) 0.1 % Neutrophils # (Auto) 13.5 TH/MM3 Lymphocytes # (Auto) 0.3 TH/MM3 Monocytes # (Auto) 0.9 TH/MM3 Eosinophils # (Auto) 0.0 TH/MM3 Basophils # (Auto) 0.0 TH/MM3 CBC Comment DIFF FINAL Differential Comment Laboratory Tests Test 03/11/17 03/12/17 05:40 05:04 Sodium Level 145 MEQ/L 146 MEQ/L Potassium Level 4.8 MEQ/L 5.1 MEQ/L Chloride Level 100 MEQ/L 103 MEQ/L Carbon Dioxide Level 40.7 MEQ/L 38.5 MEQ/L Anion Gap 4 MEQ/L 5 MEQ/L Blood Urea Nitrogen 70 MG/DL 51 MG/DL Creatinine 1.05 MG/DL 0.76 MG/DL Estimat Glomerular Filtration 70 ML/MIN 102 ML/MIN Rate Random Glucose 133 MG/DL 125 MG/DL Calcium Level 9.8 MG/DL 10.3 MG/DL Phosphorus Level 2.9 MG/DL 3.1 MG/DL Magnesium Level 3.1 MG/DL 2.7 MG/DL Microbiology Date/Time Procedure Status Source Growth 03/09/17 20:22 Aerobic Blood Culture - Preliminary Resulted Blood Peripheral Staphylococcus Epidermidis 03/09/17 20:22 Anaerobic Blood Culture - Preliminary Resulted Blood Peripheral NO GROWTH IN 3 DAYS 03/09/17 20:28 Aerobic Blood Culture - Preliminary Resulted Blood Peripheral Staph Sp Coagulase Negative 03/09/17 20:28 Anaerobic Blood Culture - Preliminary Resulted Staph Sp Coagulase Negative 03/12/17 10:40 Aerobic Blood Culture Received Blood Peripheral Pending 03/12/17 10:40 Anaerobic Blood Culture Received Blood Peripheral Pending 03/12/17 10:46 Aerobic Blood Culture Received Blood Peripheral Pending 03/12/17 10:46 Anaerobic Blood Culture Received Blood Peripheral Pending Imaging Chest X-Ray 03/11/17 0600 Signed Impressions: Service Date/Time: Saturday, March 11, 2017 04:03 - CONCLUSION: 1. Bilateral lower lobe atelectasis versus pneumonia. There has been no significant change when compared to the prior exam. Lavell Maciel MD CT Angiography 03/02/17 1206 Signed Impressions: Service Date/Time: Thursday, March 02, 2017 13:46 - CONCLUSION: 1. No pulmonary embolus identified. 2. Small bilateral effusions with significant dependent atelectasis bilaterally. Riley Bob MD Lower Extremity Ultrasound 02/27/17 0000 Signed Impressions: Service Date/Time: Monday, February 27, 2017 08:31 - CONCLUSION: Normal examination. Nick Farrell MD Abdomen X-Ray 02/24/17 0000 Signed Impressions: Service Date/Time: Friday, February 24, 2017 10:43 - CONCLUSION: 1. Nasogastric tube just across the GE junction. 2. Minimal nonspecific bowel gas dilatation. Artur Bob MD FACR Physical Exam GENERAL: sedated, on the vent, not in respiratory distress. SKIN: Warm and moist. No generalized rash. No ecchymosis. HEAD: Atraumatic. Normocephalic. No temporal or scalp tenderness. EYES: [place] conjunctivae. No scleral icterus. No injection or drainage. ENT: Nose without bleeding, or purulent drainage. Endotracheal tube is in the mouth. NECK: Supple, nontender, no meningeal signs. CARDIOVASCULAR: Regular rate and rhythm without murmurs, gallops, or rubs. His monitor shows atrial flutter RESPIRATORY: Coarse breath sounds bilaterally. No wheezes, rales, or rhonchi. Decreased at the bases. GASTROINTESTINAL: Abdomen soft, obese, nondistended, not tender. Bowel sounds are present. No hepato-splenomegaly, or palpable masses. No guarding. MUSCULOSKELETAL: Lower extremities without clubbing, cyanosis, or edema. His upper extremities are edematous. NEUROLOGICAL: Sedated. No Babinski PSYCH: Unable to assess LINE: PIV with no evidence of infection : Kaiser catheter in place, with small monitor of sediment Assessment & Plan Remarks IMPRESSION Leukocytosis, etiology? - likely reactive, ?due to his pulmonary status, has had increased O2 requirement - ?New infection, he has not been febrile - CXR looks better - ? - has no line - no diarrhea Fevers Respiratory failure, CHF, ARDS - has known ischemic cardiomyopathy BC with Coag Neg STaph, no final ID yet - ?significance Known COPD Obesity RECOMMENDATION Follow CBC Follow C/S On IV Vanco - continue for now Monitor progress Heather Young MD Mar 12, 2017 17:34
[2017-03-12] MEDS: ATORVASTATIN 40 MG TAB PO SCH (21:00)
[2017-03-13] VITALS (19 sets, daily range): BP systolic 113–173; BP diastolic 60–82; PULSE 100–117; RESP 12; TEMP 99.9–102.4; O2SAT 87–93
[2017-03-13] MEDS: PROPOFOL 1000 MG/100 ML INJ 100 ML IV SCH ×6 (02:20→21:56)
[2017-03-13] MEDS: CHLORHEXIDINE GLUCONATE 2 % 1 PACK (2 CLOTHS) TOP SCH (04:00)
[2017-03-13 04:16] LABS: AUTOMATED NEUTROPHIL # 13.3 TH/MM3 (1.8-7.7); BASOPHIL # 0.1 TH/MM3 (0-0.2); BASOPHIL % 0.4 % (0.0-2.0); HEMATOCRIT 44.1 % (39.0-51.0); LYMPH % 1.8 % (9.0-44.0); LYMPHOCYTE # 0.3 TH/MM3 (1.0-4.8); MEAN CELL VOLUME 91.6 FL (80.0-100.0); MEAN CORPUSCULAR HEMOGLOBIN 30.2 PG (27.0-34.0); MONO % 5.7 % (0.0-8.0); NEUT % 92.1 % (16.0-70.0); PLATELET COUNT 122 TH/MM3 (150-450); RED BLOOD COUNT 4.82 MIL/MM3 (4.50-5.90); RED CELL DISTRIBUTION WIDTH 16.5 % (11.6-17.2); WHITE BLOOD COUNT 14.5 TH/MM3 (4.0-11.0)
[2017-03-13 04:22] LABS: HEMO FLAGS AUTO DIFF
[2017-03-13 04:46] LABS: BICARBONATE 38.1 MEQ/L (21.0-32.0); MAGNESIUM 2.4 MG/DL (1.5-2.5); POTASSIUM 4.2 MEQ/L (3.5-5.1)
[2017-03-13] MEDS: INSULIN NovoLIN REGULAR SUPPLEMENTAL SCALE SQ SCH ×4 (05:00→23:00)
[2017-03-13] MEDS: EPOPROSTENOL NEB SOLUTION 50 NG/KG/MIN 100 ML NEB SCH ×6 (05:01→20:09)
[2017-03-13] MEDS: VANCOMYCIN INJ 1,700 MG in SODIUM CHLORID 0.9% 500 ML INJ 500 ML IV SCH ×2 (05:01→22:53)
[2017-03-13] MEDS: DOBUTamine PREMIX DRIP 250 ML IV SCH ×2 (05:13→21:23)
[2017-03-13] MEDS: HEPARIN SODIUM - SQ 10,000 UNITS/ML VIAL SQ SCH ×3 (05:13→21:55)
[2017-03-13] MEDS: fentaNYL DRIP 250 ML IV SCH ×2 (05:13→16:01)
[2017-03-13 07:55] LABS: SCAN/DIFF AUTO DIFF CONFIRMED
--- NOTE | 2017-03-13 08:12 | HHI.CCPN ---
Subjective Remarks/Hospital Course The patient is a 66-year-old male with past medical history of COPD, cardiomyopathy, hypertension, gastroesophageal reflux disease, hyperlipidemia and coronary artery disease. The patient presented to [facility] ED with a 2-week history of progressive worsening shortness of breath. On arrival to the ED he was initially placed on a non-rebreather mask and ABG was performed which showed acute hypercapnic respiratory failure with a pH of 7.14, CO2 121, pAO2 141, bicarb 40, sats 93%. His laboratory data significant for hyperkalemia with potassium level 6.0 and acute renal failure with a BUN of 43 and creatinine 2.07 respectively. The chest x-ray showed cardiomegaly and findings of vascular congestion without overt failure. In the ED the patient was intubated with etomidate and rocuronium and placed on full mechanical ventilation. In addition, he is scheduled to receive 10 units IV regular insulin, 1 amp of D50 and calcium gluconate for hyperkalemia. He received cefepime, azithromycin, Solu-Medrol 125 milligrams IV push and bronchodilator treatment. When seen the patient is on Diprivan infusion for sedation and full mechanical ventilation. Per the patient is not on any oxygen at home and he occasionally smokes cigarettes. 02/24 Patient is intubated and sedated with Diprivan and Fentanyl. Switched to PC/ AC with RR 12, IP:24, IT:1.06, PEEP: 8 and FIO2 100%. CXR this morning showed interval development of bilateral perihilar and lower lung zone airspace opacity he was given Lasix 60mg total overnight. 02/25 Patient remains sedated and intubated with Diprivan and Fentanyl. Afebrile.On PC/AC with RR 12, IP:22, IT:1.10, PEEP:10, FIO2 70%. Afebrile. Renal function worse today with Cr: 1.90 from 1.72 UO: 1150ml in 24 hrs 02/26 No acute events overnight. Sedated with Fentanyl and Diprivan and intubated. Afebrile. His O2 requirements is less now on PC/AC with IP:22, IT: 1.1 with PEEP: 10 and FIO2 55%. Renal function improving with Cr: 1.42 today from 1.90. Tolerating tube feeds. 02/27 Patient remains sedated with Diprivan and Fentanyl infusion and intubated. Afebrile. 02/28: Remains sedated, orally intubated on mechanical ventilation. Being diuresed with Bumex. Tolerating tube feeds. 03/01: Remains sedated, orally intubated on mechanical ventilation. Being diabetes. Remains on PEEP of 10 and FiO2 60% 03/02 Patient remains sedated with Diprivan and Fentanyl and intubated. On PC/AC with PEEP: 10 and FIO2 80% overnight and sats 93-94%. Afebrile. 03/03: The patient remains on high respiratory requirements PEEP of 10, and FiO2 70%. 03/04: Tmax 99.9. Overnight the patient was noted to have desaturations the patient received a bolus of midazolam and fentanyl for ventilator dyssynchrony. The patient was redosed with Diamox with approximately 2.5 L diuresis in the last 12 hours. The patient continues on an FiO2 of 70% with PEEP of 10 to maintain an O2 sat of 90%. 03/05: Afebrile. Patient's FiO2 remains at 60% to maintain O2sat ranging in 92% . Future plans for tracheostomy discussed with when ventilator requirements are decreased. Patient currently is on a PEEP of 10. Patient receiving multiple doses of diuretics chest x-ray still showing increased vascular congestion. Cardiology following metalazone added to medication regimen per cardiology for diuresis. 03/06: Patient's O2 requirements were increased overnight to FiO2 of 90%. The patient's FiO2 has been decreased now currently to 70% O2 sat is 90% ABG is pending. The patient's diuresis effective, 1 kg weight loss in 24 hours. 03/07: The patient continues to have effective diuresis. The patient's O2 requirements currently FiO2 is 70% to maintain a sat of 90-91%. Discussion with Ms. London yesterday, she would like to discuss with palliative team goals of care. Palliative care consult initiated. 03/08: The patient was less responsive to diuretics today, positive weight balance last 24 hours. The patient was placed on a Lasix infusion, noted occasional PVCs on telemetry. Patient potassium repletion ongoing, schedule potassium PO intake increased to 50 mEq twice a day. Free water flushes placed on hold, was sodium level 145 will continue to monitor. Chest x-ray shows slight improvement. Continued management of ventilator settings ARDS protocol, maintaining PaO2 60 or greater and adjusting vent settings based on PaO2. Sedation vacation attempted today by PHARMACEUTICAL OFFICER, GCS 11T. Noted WBC elevation today ID consulted. 03/09: Today the patient was noted to have increasing FiO2 requirements with a PaO2 of 61. FiO2 was increased to 100%, PEEP was gradually increased to 12, then 14. The patient subsequently became hypotensive, likely due to increasing PEEP, but chest x-ray also obtained to rule out pneumothorax which was clear. The patient subsequently was laced on phenylephrine low-dose 20 mcgs which was eventually weaned off. The patient was placed on PEEP at 7 and FiO2 of 100%, sedation was weaned to lower dose. Palliative care also discussed with goals of care and the patient was made DNR. 03/10 noted creatinine elevation last night, Lasix discontinued. Dobutamine initiated per cardiology this morning. The patient continues to have high requirements on a PEEP of 8 and FiO2 of 100% his PaO2 49.2. PEEP has been increased plan to initiate Flolan. 03/11: Tmax 100.5. FRANK resolved with dobutamine infusion, heart rate 110. Microbiology report bacteremia gram-positive cocci and sputum. Patient currently on Diflucan. Will begin Linezolid in the setting of recent FRANK and oliguria, and await further recommendations from infectious disease library sales consultant. Respiratory status deteriorating. The patient was placed on Flolan last night PaO2 67. Patient remains on a PEEP of 10, unable to advance secondary to hypotension. 03/12 Patient remains sedated with Diprivan, Fentanyl and intubated. On Dobutamine 2.5 mics and Flolan. Remains On PC/AC with RR 12, IP:22, IT:1.20, PEEP;10 and FIo2 90%. Afebrile. 03/13 Patient is sedated with Diprivan and Fentanyl and intubated. On PC/AC with PEEP:12, FIO2 80%. Tmax 101.7 Remains on Dobutamine and Flolan. Objective Vital Signs Date Time Temp Pulse Resp B/P Pulse Ox O2 Delivery O2 Flow Rate FiO2 03/13/17 07:41 92 80 03/13/17 06:00 115 03/13/17 04:00 99.9 12 173/76 Intake and Output 03/12/17 03/12/17 03/13/17 08:00 16:00 00:00 Intake Total 1019 ml 1590 ml 1221 ml Output Total 800 ml 1400 ml 1750 ml Balance 219 ml 190 ml -529 ml Result Diagram: 03/13/17 0346 03/13/17 0346 Other Results Laboratory Tests Test 03/13/17 03:46 White Blood Count 14.5 TH/MM3 Red Blood Count 4.82 MIL/MM3 Hemoglobin 14.6 GM/DL Hematocrit 44.1 % Mean Corpuscular Volume 91.6 FL Mean Corpuscular Hemoglobin 30.2 PG Mean Corpuscular Hemoglobin 33.0 % Concent Red Cell Distribution Width 16.5 % Platelet Count 122 TH/MM3 Mean Platelet Volume 10.1 FL Neutrophils (%) (Auto) 92.1 % Lymphocytes (%) (Auto) 1.8 % Monocytes (%) (Auto) 5.7 % Eosinophils (%) (Auto) 0.0 % Basophils (%) (Auto) 0.4 % Neutrophils # (Auto) 13.3 TH/MM3 Lymphocytes # (Auto) 0.3 TH/MM3 Monocytes # (Auto) 0.8 TH/MM3 Eosinophils # (Auto) 0.0 TH/MM3 Basophils # (Auto) 0.1 TH/MM3 CBC Comment AUTO DIFF Differential Comment AUTO DIFF CONFIRMED Sodium Level 146 MEQ/L Potassium Level 4.2 MEQ/L Chloride Level 103 MEQ/L Carbon Dioxide Level 38.1 MEQ/L Anion Gap 5 MEQ/L Blood Urea Nitrogen 49 MG/DL Creatinine 0.79 MG/DL Estimat Glomerular Filtration 98 ML/MIN Rate Random Glucose 132 MG/DL Calcium Level 10.6 MG/DL Phosphorus Level 3.3 MG/DL Magnesium Level 2.4 MG/DL Imaging Last Impressions Chest X-Ray 03/11/17 0600 Signed Impressions: Service Date/Time: Saturday, March 11, 2017 04:03 - CONCLUSION: 1. Bilateral lower lobe atelectasis versus pneumonia. There has been no significant change when compared to the prior exam. Lavell Maciel MD CT Angiography 03/02/17 1206 Signed Impressions: Service Date/Time: Thursday, March 02, 2017 13:46 - CONCLUSION: 1. No pulmonary embolus identified. 2. Small bilateral effusions with significant dependent atelectasis bilaterally. Riley Bob MD Lower Extremity Ultrasound 02/27/17 0000 Signed Impressions: Service Date/Time: Monday, February 27, 2017 08:31 - CONCLUSION: Normal examination. Nick Farrell MD Abdomen X-Ray 02/24/17 0000 Signed Impressions: Service Date/Time: Friday, February 24, 2017 10:43 - CONCLUSION: 1. Nasogastric tube just across the GE junction. 2. Minimal nonspecific bowel gas dilatation. Artur Bob MD FACR Objective Remarks GENERAL: Patient is 66 yo obese male intubated and sedated SKIN: Warm and dry. HEAD: Normocephalic. EYES: No scleral icterus. No injection or drainage. NECK: Supple, trachea midline. No JVD or lymphadenopathy. CARDIOVASCULAR:Tachycardic without murmurs, gallops, or rubs. RESPIRATORY: On mechanical ventilation, orally intubated, Breath sounds equal bilaterally. Few Coarse BS GASTROINTESTINAL: Abdomen soft, non-tender, nondistended. OGT, tube feedings infusing MUSCULOSKELETAL: 2+ bilateral edema in upper extremities. Neuro: Sedated, intubated Date of Removal: Mar 04, 2017 Line: Central Venous Catheter Side: Right A/P Assessment and Plan 1. Acute hypercapnic and hypoxemic respiratory failure. 2. COPD exacerbation. 3. Acute renal failure. 4. Hypernatremia 5. Obstructive sleep apnea and morbid obesity. 6. Ischemic dilated Cardiomyopathy. S/P AICD 03/2015 7. History of coronary artery disease. 8. Gastroesophageal reflux disease. 9. Hypertension. 10. Hyperlipidemia. 11 Pulm edema 12. Acute on chronic systolic and diastolic CHF 13. Pulmonary hypertension 14. Bacteremia Plan: Neuro: On Diprivan and Fentanyl infusion for sedation. Daily sedation vacation when appropriate. CV: Monitor HR and BP keep MAP>65mmHg On aspirin 325 milligrams p.o. daily and Plavix 75 mg p.o. daily. Prinivil 5mg daily 01/2017 Echo showed EF 40-45%, nl LV diastolic function, No RWMA Cardiology following-Dr. Cole 03/10-patient placed on dobutamine infusion 2.5 mics per cardiology, resolution of FRANK with increase in cardiac output Pulm: On PC/AC RR 12, IP:22, IT:1.1 PEEP: 12, FIO2: 80%, decrease FIO2 as kristie. Continue with vent support and maintain sats above 92%. Bronchodilators every 4 hours, Solu-Medrol 40 mg IV BID. Pulm-Dr. Lashell Padron following CTA chest 03/02 showed no PE, small pleural effusions Continue with Flolan nebs 8ml/hr(30,000 ng/ml) : Monitor renal function Is and Os and avoid nephrotoxins. Electrolytes replacement per protocol. On Lasix 40mg BID GI: On Protonix 40 milligrams IV daily for GI prophylaxis. On TF- Glucerna 1.5 @45ml/hr, no residual Senna, Colace for bowel regimen, Lactulose 15mg BID, 02/24 KUB abdomen: Minimal non-specific bowel gas dilatation ID:Continue with abx per ID(Vancomycin) monitor for signs of infections ( Fever , WBC) follow up on BC and sputum cx from 03/12 03/09 Repeat Bld cultures-staph Epi, coag negative staph- likely contaminant 03/09 Repeat sputum culture-staph aureus Heme: Monitor CBC. Endo: SSI with Accu-Chek q. 6-hour for glycemic control. GI prophylaxis with Protonix 40 mg daily and DVT prophylaxis with SCDs and heparin SQ Doppler US LE No DVT on 02/27 Dispo: Discussed patient with PHARMACEUTICAL OFFICER. Palliative care following. CCT 30 mins Georgia Ocampo MD Mar 13, 2017 08:12
[2017-03-13 08:18] LABS: CRITICAL VALUE YES
[2017-03-13] MEDS: FUROSEMIDE 40 MG/4 ML VIAL IV PUSH SCH ×2 (08:51→17:24)
[2017-03-13] MEDS: DOCUSATE SODIUM 100 MG/10 ML UDC PO SCH ×2 (08:51→20:08)
[2017-03-13] MEDS: LACTULOSE SYRUP 20 GM/30 ML CUP PO SCH ×2 (08:51→20:08)
[2017-03-13] MEDS: LISINOPRIL 5 MG TAB PO SCH (08:52)
[2017-03-13] MEDS: CLOPIDOGREL 75 MG TAB PO SCH (08:52)
[2017-03-13] MEDS: methylPREDNISolone SOD SUCC 40 MG/1 ML VIAL IV PUSH SCH ×2 (08:52→20:08)
[2017-03-13] MEDS: SODIUM CHLORIDE 0.9% FLUSH 10 ML FLUSH IVF PRN (08:52)
[2017-03-13] MEDS: ASPIRIN 325 MG TAB PO SCH (08:52)
[2017-03-13] MEDS: SENNOSIDES SYRUP 8.8 MG/5 ML CUP PO SCH (08:52)
[2017-03-13] MEDS: PANTOPRAZOLE SODIUM 40 MG VIAL IV SCH (08:56)
[2017-03-13] MEDS: CHLORHEXIDINE 0.12% (ORAL KIT) 15 ML CUP MT SCH ×2 (08:56→20:07)
[2017-03-13] MEDS: ACETAMINOPHEN 325 MG TAB PO PRN ×2 (11:02→20:35)
--- NOTE | 2017-03-13 13:43 | HHI.IDPN ---
Subjective Subjective Remarks Notes reviewed D/W RN Febrile Remains on vent, FiO2 at 0.8 BC with Staph epidermidis, different susceptibility results Sputum with MSSA WBC same CXR stable infiltrates BP ok, no on pressors Antibiotics Vancomycin Past Medical History Reviewed Allergies: Coded Allergies: No Known Allergies (Verified , 02/23/17) Objective . Vital Signs Date Time Temp Pulse Resp B/P Pulse Ox O2 Delivery O2 Flow Rate FiO2 03/13/17 10:15 89 80 03/13/17 07:41 92 80 03/13/17 06:00 115 03/13/17 04:18 92 80 03/13/17 04:00 80 03/13/17 04:00 99.9 117 12 173/76 91 03/13/17 04:00 117 03/13/17 02:00 114 03/13/17 01:15 90 80 03/13/17 00:00 101.0 117 12 166/74 89 03/13/17 00:00 80 03/13/17 00:00 117 03/12/17 23:22 90 80 03/12/17 22:00 107 03/12/17 20:00 80 03/12/17 20:00 111 03/12/17 20:00 99.4 112 12 144/70 91 03/12/17 18:00 109 03/12/17 17:17 93 80 03/12/17 16:00 101.7 103 12 112/67 92 03/12/17 16:00 80 03/12/17 16:00 103 03/12/17 14:00 119 03/12/17 03/12/17 03/13/17 15:00 23:00 07:00 Intake Total 1590 ml 1221 ml 931 ml Output Total 1400 ml 1750 ml 500 ml Balance 190 ml -529 ml 431 ml IV Total 1045 ml 668 ml 615 ml Tube Feeding 425 ml 493 ml 316 ml Tube Irrigant 60 ml Other 120 ml Output Urine Total 1400 ml 1750 ml 500 ml # Bowel Movements 0 0 0 . Laboratory Tests Test 03/12/17 03/13/17 05:04 03:46 White Blood Count 14.7 TH/MM3 14.5 TH/MM3 Red Blood Count 4.98 MIL/MM3 4.82 MIL/MM3 Hemoglobin 14.9 GM/DL 14.6 GM/DL Hematocrit 46.3 % 44.1 % Mean Corpuscular Volume 92.8 FL 91.6 FL Mean Corpuscular Hemoglobin 30.0 PG 30.2 PG Mean Corpuscular Hemoglobin 32.3 % 33.0 % Concent Red Cell Distribution Width 16.3 % 16.5 % Platelet Count 124 TH/MM3 122 TH/MM3 Mean Platelet Volume 10.1 FL 10.1 FL Neutrophils (%) (Auto) 91.5 % 92.1 % Lymphocytes (%) (Auto) 2.0 % 1.8 % Monocytes (%) (Auto) 6.4 % 5.7 % Eosinophils (%) (Auto) 0.0 % 0.0 % Basophils (%) (Auto) 0.1 % 0.4 % Neutrophils # (Auto) 13.5 TH/MM3 13.3 TH/MM3 Lymphocytes # (Auto) 0.3 TH/MM3 0.3 TH/MM3 Monocytes # (Auto) 0.9 TH/MM3 0.8 TH/MM3 Eosinophils # (Auto) 0.0 TH/MM3 0.0 TH/MM3 Basophils # (Auto) 0.0 TH/MM3 0.1 TH/MM3 CBC Comment DIFF FINAL AUTO DIFF Differential Comment AUTO DIFF CONFIRMED Laboratory Tests Test 03/12/17 03/13/17 05:04 03:46 Sodium Level 146 MEQ/L 146 MEQ/L Potassium Level 5.1 MEQ/L 4.2 MEQ/L Chloride Level 103 MEQ/L 103 MEQ/L Carbon Dioxide Level 38.5 MEQ/L 38.1 MEQ/L Anion Gap 5 MEQ/L 5 MEQ/L Blood Urea Nitrogen 51 MG/DL 49 MG/DL Creatinine 0.76 MG/DL 0.79 MG/DL Estimat Glomerular Filtration 102 ML/MIN 98 ML/MIN Rate Random Glucose 125 MG/DL 132 MG/DL Calcium Level 10.3 MG/DL 10.6 MG/DL Phosphorus Level 3.1 MG/DL 3.3 MG/DL Magnesium Level 2.7 MG/DL 2.4 MG/DL Microbiology Date/Time Procedure Status Source Growth 03/12/17 10:40 Aerobic Blood Culture - Preliminary Resulted Blood Peripheral NO GROWTH IN 1 DAY 03/12/17 10:40 Anaerobic Blood Culture - Preliminary Resulted Blood Peripheral NO GROWTH IN 1 DAY 03/12/17 10:46 Aerobic Blood Culture - Preliminary Resulted Blood Peripheral NO GROWTH IN 1 DAY 03/12/17 10:46 Anaerobic Blood Culture - Preliminary Resulted Blood Peripheral NO GROWTH IN 1 DAY 03/12/17 15:50 Gram Stain - Final Resulted Sputum Endotracheal 03/12/17 15:50 Sputum Culture - Preliminary Resulted Sputum Endotracheal IMMATURE GROWTH - REINCUBATE Imaging Chest X-Ray 03/11/17 0600 Signed Impressions: Service Date/Time: Saturday, March 11, 2017 04:03 - CONCLUSION: 1. Bilateral lower lobe atelectasis versus pneumonia. There has been no significant change when compared to the prior exam. Lavell Maciel MD CT Angiography 03/02/17 1206 Signed Impressions: Service Date/Time: Thursday, March 02, 2017 13:46 - CONCLUSION: 1. No pulmonary embolus identified. 2. Small bilateral effusions with significant dependent atelectasis bilaterally. Riley Bob MD Lower Extremity Ultrasound 02/27/17 0000 Signed Impressions: Service Date/Time: Monday, February 27, 2017 08:31 - CONCLUSION: Normal examination. Nick Farrell MD Abdomen X-Ray 02/24/17 0000 Signed Impressions: Service Date/Time: Friday, February 24, 2017 10:43 - CONCLUSION: 1. Nasogastric tube just across the GE junction. 2. Minimal nonspecific bowel gas dilatation. Artur Bob MD FACR Physical Exam GENERAL: sedated, on the vent, not in respiratory distress. SKIN: Warm and moist. No generalized rash. HEENT: [place] conjunctivae. No scleral icterus. No injection or drainage. Nose without bleeding, or purulent drainage. Endotracheal tube is in the mouth. NECK: Supple, nontender, no meningeal signs. CARDIOVASCULAR: Regular rate and rhythm without murmurs, gallops, or rubs. His monitor shows atrial flutter RESPIRATORY: Coarse breath sounds bilaterally. No wheezes, rales, or rhonchi. Decreased at the bases. GASTROINTESTINAL: Abdomen soft, obese, nondistended, not tender. Bowel sounds are present. No hepato-splenomegaly, or palpable masses. No guarding. MUSCULOSKELETAL: Lower extremities without clubbing, cyanosis, or edema. His upper extremities are edematous. NEUROLOGICAL: Sedated. No Babinski PSYCH: Unable to assess LINE: PIV with no evidence of infection : Kaiser catheter in place, with small amount of sediment Assessment & Plan Remarks IMPRESSION Leukocytosis, etiology? - likely reactive, ?due to his pulmonary status, has had increased O2 requirement - ?New infection, he has not been febrile - CXR looks better - ? - has no line - no diarrhea Fevers Respiratory failure, CHF, ARDS - has known ischemic cardiomyopathy BC with Coag Neg STaph, no final ID yet - 2 different susceptibility testing, likely contaminant; repeat BC negative so far Known COPD Obesity RECOMMENDATION Follow CBC Follow C/S Continue IV Vanco Monitor progress D/W Heather Hamilton MD Mar 13, 2017 13:43
--- NOTE | 2017-03-13 13:56 | HHI.HCPN ---
Reason for visit a. To assist with evaluation and management of symptoms including:dyspnea, pain b. To assist medical decision maker(s) with: better understanding of current medical conditions; weighing benefits/burdens of medical treatment options; making medical treatment decisions. Subjective/Interval History This is a 66-year-old morbidly obese male who presented to the emergency department on 02/23/17 with complaints of shortness of breath times 2 weeks. Hx of severe COPD and CAD status post PPM/AICD with an EF of 20%. He remains sedated w propofol and fentanyl on a vent with pressors. FRANK resolved with dobutamine 2.5 mics infusion and ; started on Flolan. Patient remains on a PEEP of 12 and FIo2 80%. with an O2 sat of 89-91%. Blood gases continued to show hypercapnia. Last chest x-ray identified. Bilateral lower lobe atelectasis versus pneumonia with no significant change compared to the prior exam. Prior exam also identified. Moderate sized bilateral pleural effusions. Telemetry is showing increased frequency of runs of wide ventricular complexes. Also noted increased frequency in demand pacemaker firing. Tmax 101.6 in the last 24 hrs - blood cultures identified. Staph epi and staph species coagulase negative. He remains on vancomycin He is unresponsive to stimuli and is noted to have eye twitching is present at the bedside. She is distraught in that none of her pressors have been answered. Questioning and wondering why with all of this medicine he is not getting better. I reviewed his current clinical state, emphasizing the severe deterioration of his lungs and his ongoing need for high pressure ventilatory support. Discussed with her that the likelihood of his recovery was very poor - he would likely remain ventilator dependent, probably in a long-term. At this time, He is unable to be trached due to his high O2 pressure needs. Advance Directives Living Will: Never completed Health Care Surrogate: Never completed Durable Power of Social Media Strategist: Never completed Advance Directive Specifics Health Care Surrogate(s): Brooke Doran - [phone] (home), or [phone] (cellvoicemail not set up) Objective Vital Signs Date Time Temp Pulse Resp B/P Pulse Ox O2 Delivery O2 Flow Rate FiO2 03/13/17 10:15 89 80 03/13/17 07:41 92 80 03/13/17 06:00 115 03/13/17 04:18 92 80 03/13/17 04:00 80 03/13/17 04:00 99.9 117 12 173/76 91 03/13/17 04:00 117 03/13/17 02:00 114 03/13/17 01:15 90 80 03/13/17 00:00 101.0 117 12 166/74 89 03/13/17 00:00 80 03/13/17 00:00 117 03/12/17 23:22 90 80 03/12/17 22:00 107 03/12/17 20:00 80 03/12/17 20:00 111 03/12/17 20:00 99.4 112 12 144/70 91 03/12/17 18:00 109 03/12/17 17:17 93 80 03/12/17 16:00 101.7 103 12 112/67 92 03/12/17 16:00 80 03/12/17 16:00 103 03/12/17 14:00 119 Intake & Output 03/13/17 03/13/17 07:00 19:00 Intake Total 2152 ml Output Total 2250 ml Balance -98 ml IV Total 1283 ml Tube Feeding 809 ml Tube Irrigant 60 ml Output Urine Total 2250 ml # Bowel Movements 0 Physical Exam CONSTITUTIONAL/GENERAL: This is an adequately nourished patient,sedated on the vent TUBES/LINES/DRAINS:central line, OG tube, orotracheal tube, catheter, SKIN: No jaundice, rashes, or lesions. Ecchymoses on upper extremities. skin tear noted Skin temperature appropriate. Not diaphoretic. HEAD: Atraumatic. Normocephalic. EYES: Pupils equal and round and reactive. . No scleral icterus. No injection or drainage. Fundi not examined. ENT:Throat without visible erythema, exudates, masses, or lesions. NECK: Trachea midline. Supple, CARDIOVASCULAR: irregular rate and rhythm w/o murmurs, gallops, or rubs. No JVD. Peripheral pulses symmetric. RESPIRATORY/CHEST: Symmetric, unlabored respirations. course coarse breath sounds anteriorly, diminished posterior - vent dependent GASTROINTESTINAL: Abdomen soft, round, No hepato-splenomegaly, or palpable masses. Bowel sounds present. GENITOURINARY: Without palpable bladder distension. catheter in place. MUSCULOSKELETAL: Extremities without clubbing, cyanosis, or edema. No mottling or clubbing. LYMPHATICS: No palpable cervical or supraclavicular adenopathy. NEUROLOGICAL: sedated on the vent; will have autonomic eye twitches PSYCHIATRIC: unable to assess Diagnostic Tests Laboratory Laboratory Tests Test 03/10/17 03/10/17 03/11/17 03/11/17 16:32 18:00 05:10 05:40 Blood Gas Puncture Site RT RADIAL RT RADIAL RT RADIAL Blood Gas Patient Temperature 98.6 98.6 98.6 Blood Gas HCO3 42 mmol/L 42 mmol/L 42 mmol/L (22-26) (22-26) (22-26) Blood Gas Base Excess 17.7 mmol/L 17.6 mmol/L 16.9 mmol/L (-2-2) (-2-2) (-2-2) Blood Gas Oxygen Saturation 82 % (90-100) 84 % (90-100) 90 % (90-100) Arterial Blood pH 7.52 7.52 7.46 (7.380-7.420) (7.380-7.420) (7.380-7.420) Arterial Blood Partial 53 mmHg (38-42) 53 mmHg (38-42) 61 mmHg (38-42) Pressure CO2 Arterial Blood Partial 49 mmHg 53 mmHg 67 mmHg Pressure O2 (61-120) (61-120) (61-120) Arterial Blood Oxygen Content 18.0 Vol % 18.3 Vol % 19.8 Vol % (12.0-20.0) (12.0-20.0) (12.0-20.0) Arterial Blood 1.2 % (0-4) 1.2 % (0-4) 1.1 % (0-4) Carboxyhemoglobin Arterial Blood Methemoglobin 1.0 % (0-2) 1.3 % (0-2) 1.2 % (0-2) Blood Gas Hemoglobin 15.6 G/DL 15.5 G/DL 15.8 G/DL (12.0-16.0) (12.0-16.0) (12.0-16.0) Oxygen Delivery Device VENTILATOR VENTILATOR VENTILATOR Blood Gas Ventilator Setting PC/AC PC/AC RATE12 PC/AC Blood Gas Inspired Oxygen 100 % 100 % 100 % White Blood Count 15.2 TH/MM3 (4.0-11.0) Red Blood Count 5.02 MIL/MM3 (4.50-5.90) Hemoglobin 15.2 GM/DL (13.0-17.0) Hematocrit 47.0 % (39.0-51.0) Mean Corpuscular Volume 93.6 FL (80.0-100.0) Mean Corpuscular Hemoglobin 30.3 PG (27.0-34.0) Mean Corpuscular Hemoglobin 32.3 % Concent (32.0-36.0) Red Cell Distribution Width 16.6 % (11.6-17.2) Platelet Count 116 TH/MM3 (150-450) Mean Platelet Volume 10.2 FL (7.0-11.0) Sodium Level 145 MEQ/L (136-145) Potassium Level 4.8 MEQ/L (3.5-5.1) Chloride Level 100 MEQ/L (98-107) Carbon Dioxide Level 40.7 MEQ/L (21.0-32.0) Anion Gap 4 MEQ/L (5-15) Blood Urea Nitrogen 70 MG/DL (7-18) Creatinine 1.05 MG/DL (0.60-1.30) Estimat Glomerular Filtration 70 ML/MIN (>89) Rate Random Glucose 133 MG/DL (74-106) Calcium Level 9.8 MG/DL (8.5-10.1) Phosphorus Level 2.9 MG/DL (2.5-4.9) Magnesium Level 3.1 MG/DL (1.5-2.5) Test 03/11/17 03/12/17 03/12/17 03/13/17 16:27 05:04 05:56 03:46 Blood Gas Puncture Site RT RADIAL LT FOOT Blood Gas Patient Temperature 98.6 98.6 Blood Gas HCO3 40 mmol/L 39 mmol/L (22-26) (22-26) Blood Gas Base Excess 15.3 mmol/L 13.8 mmol/L (-2-2) (-2-2) Blood Gas Oxygen Saturation 93 % (90-100) 90 % (90-100) Arterial Blood pH 7.46 7.43 (7.380-7.420) (7.380-7.420) Arterial Blood Partial 58 mmHg (38-42) 60 mmHg (38-42) Pressure CO2 Arterial Blood Partial 81 mmHg 69 mmHg Pressure O2 (61-120) (61-120) Arterial Blood Oxygen Content 19.7 Vol % 19.1 Vol % (12.0-20.0) (12.0-20.0) Arterial Blood 1.1 % (0-4) 1.2 % (0-4) Carboxyhemoglobin Arterial Blood Methemoglobin 1.2 % (0-2) 1.4 % (0-2) Blood Gas Hemoglobin 15.0 G/DL 15.2 G/DL (12.0-16.0) (12.0-16.0) Oxygen Delivery Device VENTILATOR VENTILATOR Blood Gas Ventilator Setting PC/AC RATE 12 PC/AC Blood Gas Inspired Oxygen 90 % 90 % White Blood Count 14.7 TH/MM3 14.5 TH/MM3 (4.0-11.0) (4.0-11.0) Red Blood Count 4.98 MIL/MM3 4.82 MIL/MM3 (4.50-5.90) (4.50-5.90) Hemoglobin 14.9 GM/DL 14.6 GM/DL (13.0-17.0) (13.0-17.0) Hematocrit 46.3 % 44.1 % (39.0-51.0) (39.0-51.0) Mean Corpuscular Volume 92.8 FL 91.6 FL (80.0-100.0) (80.0-100.0) Mean Corpuscular Hemoglobin 30.0 PG 30.2 PG (27.0-34.0) (27.0-34.0) Mean Corpuscular Hemoglobin 32.3 % 33.0 % Concent (32.0-36.0) (32.0-36.0) Red Cell Distribution Width 16.3 % 16.5 % (11.6-17.2) (11.6-17.2) Platelet Count 124 TH/MM3 122 TH/MM3 (150-450) (150-450) Mean Platelet Volume 10.1 FL 10.1 FL (7.0-11.0) (7.0-11.0) Neutrophils (%) (Auto) 91.5 % 92.1 % (16.0-70.0) (16.0-70.0) Lymphocytes (%) (Auto) 2.0 % 1.8 % (9.0-44.0) (9.0-44.0) Monocytes (%) (Auto) 6.4 % (0.0-8.0) 5.7 % (0.0-8.0) Eosinophils (%) (Auto) 0.0 % (0.0-4.0) 0.0 % (0.0-4.0) Basophils (%) (Auto) 0.1 % (0.0-2.0) 0.4 % (0.0-2.0) Neutrophils # (Auto) 13.5 TH/MM3 13.3 TH/MM3 (1.8-7.7) (1.8-7.7) Lymphocytes # (Auto) 0.3 TH/MM3 0.3 TH/MM3 (1.0-4.8) (1.0-4.8) Monocytes # (Auto) 0.9 TH/MM3 0.8 TH/MM3 (0-0.9) (0-0.9) Eosinophils # (Auto) 0.0 TH/MM3 0.0 TH/MM3 (0-0.4) (0-0.4) Basophils # (Auto) 0.0 TH/MM3 0.1 TH/MM3 (0-0.2) (0-0.2) CBC Comment DIFF FINAL AUTO DIFF Differential Comment AUTO DIFF CONFIRMED Sodium Level 146 MEQ/L 146 MEQ/L (136-145) (136-145) Potassium Level 5.1 MEQ/L 4.2 MEQ/L (3.5-5.1) (3.5-5.1) Chloride Level 103 MEQ/L 103 MEQ/L (98-107) (98-107) Carbon Dioxide Level 38.5 MEQ/L 38.1 MEQ/L (21.0-32.0) (21.0-32.0) Anion Gap 5 MEQ/L (5-15) 5 MEQ/L (5-15) Blood Urea Nitrogen 51 MG/DL (7-18) 49 MG/DL (7-18) Creatinine 0.76 MG/DL 0.79 MG/DL (0.60-1.30) (0.60-1.30) Estimat Glomerular Filtration 102 ML/MIN 98 ML/MIN (>89) Rate (>89) Random Glucose 125 MG/DL 132 MG/DL (74-106) (74-106) Calcium Level 10.3 MG/DL 10.6 MG/DL (8.5-10.1) (8.5-10.1) Phosphorus Level 3.1 MG/DL 3.3 MG/DL (2.5-4.9) (2.5-4.9) Magnesium Level 2.7 MG/DL 2.4 MG/DL (1.5-2.5) (1.5-2.5) Result Diagram: 03/13/17 0346 03/13/17 0346 Microbiology Microbiology Date/Time Procedure Status Source Growth 03/12/17 10:40 Aerobic Blood Culture - Preliminary Resulted Blood Peripheral NO GROWTH IN 1 DAY 03/12/17 10:40 Anaerobic Blood Culture - Preliminary Resulted Blood Peripheral NO GROWTH IN 1 DAY 03/12/17 10:46 Aerobic Blood Culture - Preliminary Resulted Blood Peripheral NO GROWTH IN 1 DAY 03/12/17 10:46 Anaerobic Blood Culture - Preliminary Resulted Blood Peripheral NO GROWTH IN 1 DAY 03/12/17 15:50 Gram Stain - Final Resulted Sputum Endotracheal 03/12/17 15:50 Sputum Culture - Preliminary Resulted Sputum Endotracheal IMMATURE GROWTH - REINCUBATE 03/09/17blood culturesStaphylococcus epidermidis, staph species coagulase negative Imaging Last 72 hours Impressions Chest X-Ray 03/11/17 0600 Signed Impressions: Service Date/Time: Saturday, March 11, 2017 04:03 - CONCLUSION: 1. Bilateral lower lobe atelectasis versus pneumonia. There has been no significant change when compared to the prior exam. Lavell Maciel MD 03/08/17 chest x-raycardiomegaly with bibasilar densities Assessment and Plan Disease Oriented Problem List: (1) COPD with acute exacerbation Comment: Remains intubated with FiO2 of 80 and PEEP of 12 (2) Ischemic dilated cardiomyopathy (3) Hypertension (4) Atrial flutter Comment: Increased frequency of demand pacemaker activity; runs of V. 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 He has been intubated since admission and remains on high ventilatory support needs with remaining hypercapnia. Code Status: No Code Plan Decision Maker: Brooke Doran, , or [phone] Code Status: No code DNR at this time - did not want to make any decisions until after Easter Family Discussion: is present at the bedside. She is distraught in that none of her pressors have been answered. Questioning and wondering why with all of this medicine he is not getting better. I reviewed his current clinical state, emphasizing the severe deterioration of his lungs and his ongoing need for high pressure ventilatory support. Discussed with her that the likelihood of his recovery was very poor - he would likely remain ventilator dependent, probably in a long-term. At this time, He is unable to be trached due to his high O2 pressure needs. Discussed that in light of his severe cardiac disease as well as pulmonary disease. He would not likely survive this hospitalization. Discussed that current interventions are prolonging the dying process. She is understandably tearful in that she had hopes that he would heal again as she had in prior hospitalizations. She asked me what the next steps were. Discussed that there are 2 options: 1. Is to continue current interventions. 2 would be to allow him to a natural by withdrawing things that are keeping him alive. She is not able more emotionally ready to make any decisions at this time as she continues to have hope. Symptoms: pain, dyspnea Palliative care phone number provided - will follow during hospital stay. Attestation To help prompt me to consider important information that might be impacting today's encounter and assessment, information from prior notes written by myself or my colleagues may have been "brought forward" into today's note. My signature on this note, however, is an attestation that I personally performed the exam, history, and/or decision-making noted today, and, unless otherwise indicated, the interactions with patient, family, and staff as well as the review of records all occurred today. I also attest that the listed assessment and stated plan reflect my best clinical judgment today based on the combination of historical information, prior notes, and today's exam/ interactions. When time spent is documented, it refers only to time spent today by the signer, or if indicated, combined time spent today by collaborating physician/nurse practitioner. Della Hoffman Mar 13, 2017 13:56
[2017-03-13] MEDS ORDERED: ACETAMINOPHEN 650 MG SUPP RECTAL PRN (18:45)
[2017-03-13] MEDS: ATORVASTATIN 40 MG TAB PO SCH (20:08)
[2017-03-13] MEDS ORDERED: PHARMACY ORDERED LAB ONE (21:45)
[2017-03-13] MEDS: RESP: ALBUTEROL 2.5 MG/IPRATROPIUM 0.5 MG NEB (PRN) NEB (23:02)
[2017-03-14] VITALS (18 sets, daily range): BP systolic 122–135; BP diastolic 57–75; PULSE 71–113; RESP 12; TEMP 98.6–101.6; O2SAT 87–95
[2017-03-14] MEDS: PROPOFOL 1000 MG/100 ML INJ 100 ML IV SCH ×6 (01:05→20:52)
[2017-03-14] MEDS: fentaNYL DRIP 250 ML IV SCH ×2 (01:05→16:32)
[2017-03-14] MEDS: CHLORHEXIDINE GLUCONATE 2 % 1 PACK (2 CLOTHS) TOP SCH (04:00)
[2017-03-14] MEDS: INSULIN NovoLIN REGULAR SUPPLEMENTAL SCALE SQ SCH ×4 (05:00→22:07)
[2017-03-14] MEDS: HEPARIN SODIUM - SQ 10,000 UNITS/ML VIAL SQ SCH ×3 (05:14→22:07)
[2017-03-14] MEDS: EPOPROSTENOL NEB SOLUTION 50 NG/KG/MIN 100 ML NEB SCH ×6 (05:15→20:52)
[2017-03-14] MEDS: CHLORHEXIDINE 0.12% (ORAL KIT) 15 ML CUP MT SCH ×2 (08:00→20:37)
--- NOTE | 2017-03-14 08:26 | HHI.CCPN ---
Subjective Remarks/Hospital Course The patient is a 66-year-old male with past medical history of COPD, cardiomyopathy, hypertension, gastroesophageal reflux disease, hyperlipidemia and coronary artery disease. The patient presented to [facility] ED with a 2-week history of progressive worsening shortness of breath. On arrival to the ED he was initially placed on a non-rebreather mask and ABG was performed which showed acute hypercapnic respiratory failure with a pH of 7.14, CO2 121, pAO2 141, bicarb 40, sats 93%. His laboratory data significant for hyperkalemia with potassium level 6.0 and acute renal failure with a BUN of 43 and creatinine 2.07 respectively. The chest x-ray showed cardiomegaly and findings of vascular congestion without overt failure. In the ED the patient was intubated with etomidate and rocuronium and placed on full mechanical ventilation. In addition, he is scheduled to receive 10 units IV regular insulin, 1 amp of D50 and calcium gluconate for hyperkalemia. He received cefepime, azithromycin, Solu-Medrol 125 milligrams IV push and bronchodilator treatment. When seen the patient is on Diprivan infusion for sedation and full mechanical ventilation. Per the patient is not on any oxygen at home and he occasionally smokes cigarettes. 02/24 Patient is intubated and sedated with Diprivan and Fentanyl. Switched to PC/ AC with RR 12, IP:24, IT:1.06, PEEP: 8 and FIO2 100%. CXR this morning showed interval development of bilateral perihilar and lower lung zone airspace opacity he was given Lasix 60mg total overnight. 02/25 Patient remains sedated and intubated with Diprivan and Fentanyl. Afebrile.On PC/AC with RR 12, IP:22, IT:1.10, PEEP:10, FIO2 70%. Afebrile. Renal function worse today with Cr: 1.90 from 1.72 UO: 1150ml in 24 hrs 02/26 No acute events overnight. Sedated with Fentanyl and Diprivan and intubated. Afebrile. His O2 requirements is less now on PC/AC with IP:22, IT: 1.1 with PEEP: 10 and FIO2 55%. Renal function improving with Cr: 1.42 today from 1.90. Tolerating tube feeds. 02/27 Patient remains sedated with Diprivan and Fentanyl infusion and intubated. Afebrile. 02/28: Remains sedated, orally intubated on mechanical ventilation. Being diuresed with Bumex. Tolerating tube feeds. 03/01: Remains sedated, orally intubated on mechanical ventilation. Being diabetes. Remains on PEEP of 10 and FiO2 60% 03/02 Patient remains sedated with Diprivan and Fentanyl and intubated. On PC/AC with PEEP: 10 and FIO2 80% overnight and sats 93-94%. Afebrile. 03/03: The patient remains on high respiratory requirements PEEP of 10, and FiO2 70%. 03/04: Tmax 99.9. Overnight the patient was noted to have desaturations the patient received a bolus of midazolam and fentanyl for ventilator dyssynchrony. The patient was redosed with Diamox with approximately 2.5 L diuresis in the last 12 hours. The patient continues on an FiO2 of 70% with PEEP of 10 to maintain an O2 sat of 90%. 03/05: Afebrile. Patient's FiO2 remains at 60% to maintain O2sat ranging in 92% . Future plans for tracheostomy discussed with when ventilator requirements are decreased. Patient currently is on a PEEP of 10. Patient receiving multiple doses of diuretics chest x-ray still showing increased vascular congestion. Cardiology following metalazone added to medication regimen per cardiology for diuresis. 03/06: Patient's O2 requirements were increased overnight to FiO2 of 90%. The patient's FiO2 has been decreased now currently to 70% O2 sat is 90% ABG is pending. The patient's diuresis effective, 1 kg weight loss in 24 hours. 03/07: The patient continues to have effective diuresis. The patient's O2 requirements currently FiO2 is 70% to maintain a sat of 90-91%. Discussion with Ms. London yesterday, she would like to discuss with palliative team goals of care. Palliative care consult initiated. 03/08: The patient was less responsive to diuretics today, positive weight balance last 24 hours. The patient was placed on a Lasix infusion, noted occasional PVCs on telemetry. Patient potassium repletion ongoing, schedule potassium PO intake increased to 50 mEq twice a day. Free water flushes placed on hold, was sodium level 145 will continue to monitor. Chest x-ray shows slight improvement. Continued management of ventilator settings ARDS protocol, maintaining PaO2 60 or greater and adjusting vent settings based on PaO2. Sedation vacation attempted today by STATIONARY STEAM ENGINEER, GCS 11T. Noted WBC elevation today ID consulted. 03/09: Today the patient was noted to have increasing FiO2 requirements with a PaO2 of 61. FiO2 was increased to 100%, PEEP was gradually increased to 12, then 14. The patient subsequently became hypotensive, likely due to increasing PEEP, but chest x-ray also obtained to rule out pneumothorax which was clear. The patient subsequently was laced on phenylephrine low-dose 20 mcgs which was eventually weaned off. The patient was placed on PEEP at 7 and FiO2 of 100%, sedation was weaned to lower dose. Palliative care also discussed with goals of care and the patient was made DNR. 03/10 noted creatinine elevation last night, Lasix discontinued. Dobutamine initiated per cardiology this morning. The patient continues to have high requirements on a PEEP of 8 and FiO2 of 100% his PaO2 49.2. PEEP has been increased plan to initiate Flolan. 03/11: Tmax 100.5. FRANK resolved with dobutamine infusion, heart rate 110. Microbiology report bacteremia gram-positive cocci and sputum. Patient currently on Diflucan. Will begin Linezolid in the setting of recent FARNK and oliguria, and await further recommendations from infectious disease education sales consultant. Respiratory status deteriorating. The patient was placed on Flolan last night PaO2 67. Patient remains on a PEEP of 10, unable to advance secondary to hypotension. 03/12 Patient remains sedated with Diprivan, Fentanyl and intubated. On Dobutamine 2.5 mics and Flolan. Remains On PC/AC with RR 12, IP:22, IT:1.20, PEEP;10 and FIo2 90%. Afebrile. 03/13 Patient is sedated with Diprivan and Fentanyl and intubated. On PC/AC with PEEP:12, FIO2 80%. Tmax 101.7 Remains on Dobutamine and Flolan. 03/14 Patient remains sedated and intubated. On PC/AC with PEEP:12 and FIO2 100% . T: 101.5 last night. On Flolan off Dobutamine. Objective Vital Signs Date Time Temp Pulse Resp B/P Pulse Ox O2 Delivery O2 Flow Rate FiO2 03/14/17 06:00 95 03/14/17 04:35 91 100 03/14/17 04:00 98.8 12 124/58 Intake and Output 03/13/17 03/13/17 03/14/17 08:00 16:00 00:00 Intake Total 931 ml 1675 ml 1339 ml Output Total 500 ml 1250 ml 550 ml Balance 431 ml 425 ml 789 ml Result Diagram: 03/13/17 0346 03/14/17 0407 Other Results Laboratory Tests Test 03/13/17 03/14/17 22:00 04:07 Vancomycin Level Trough 18.8 MCG/ML Creatinine 1.15 MG/DL Estimat Glomerular Filtration 63 ML/MIN Rate Imaging Last Impressions Chest X-Ray 03/11/17 0600 Signed Impressions: Service Date/Time: Saturday, March 11, 2017 04:03 - CONCLUSION: 1. Bilateral lower lobe atelectasis versus pneumonia. There has been no significant change when compared to the prior exam. Lavell Maciel MD CT Angiography 03/02/17 1206 Signed Impressions: Service Date/Time: Thursday, March 02, 2017 13:46 - CONCLUSION: 1. No pulmonary embolus identified. 2. Small bilateral effusions with significant dependent atelectasis bilaterally. Riley Bob MD Lower Extremity Ultrasound 02/27/17 0000 Signed Impressions: Service Date/Time: Monday, February 27, 2017 08:31 - CONCLUSION: Normal examination. Nick Farrell MD Abdomen X-Ray 02/24/17 0000 Signed Impressions: Service Date/Time: Friday, February 24, 2017 10:43 - CONCLUSION: 1. Nasogastric tube just across the GE junction. 2. Minimal nonspecific bowel gas dilatation. Artur Bob MD FACR Objective Remarks GENERAL: Patient is 66 yo obese male intubated and sedated SKIN: Warm and dry. HEAD: Normocephalic. EYES: No scleral icterus. No injection or drainage. NECK: Supple, trachea midline. No JVD or lymphadenopathy. CARDIOVASCULAR:Tachycardic without murmurs, gallops, or rubs. RESPIRATORY: On mechanical ventilation, orally intubated, Breath sounds equal bilaterally. Few Coarse BS GASTROINTESTINAL: Abdomen soft, non-tender, nondistended. OGT, tube feedings infusing MUSCULOSKELETAL: 2+ bilateral edema in upper extremities. Neuro: Sedated, intubated Date of Removal: Mar 04, 2017 Line: Central Venous Catheter Side: Right A/P Assessment and Plan 1. Acute hypercapnic and hypoxemic respiratory failure. 2. COPD exacerbation. 3. Acute renal failure. 4. Hypernatremia 5. Obstructive sleep apnea and morbid obesity. 6. Ischemic dilated Cardiomyopathy. S/P AICD 03/2015 7. History of coronary artery disease. 8. Gastroesophageal reflux disease. 9. Hypertension. 10. Hyperlipidemia. 11 Pulm edema 12. Acute on chronic systolic and diastolic CHF 13. Pulmonary hypertension 14. Bacteremia Plan: Neuro: On Diprivan and Fentanyl infusion for sedation. Daily sedation vacation when appropriate. CV: Monitor HR and BP keep MAP>65mmHg On aspirin 325 milligrams p.o. daily and Plavix 75 mg p.o. daily. Prinivil 5mg daily 01/2017 Echo showed EF 40-45%, nl LV diastolic function, No RWMA Cardiology following-Dr. Cole. Off Dobutamine. Pulm: On PC/AC RR 12, IP:22, IT:1.1 PEEP: 12, FIO2: 100%, decrease FIO2 as kristie. Continue with vent support and maintain sats above 92%. Bronchodilators every 4 hours, Solu-Medrol 40 mg IV BID. Pulm-Dr. Lashell Padron following Check CXR CTA chest 03/02 showed no PE, small pleural effusions Continue with Flolan nebs 8ml/hr(30,000 ng/ml) : Monitor renal function Is and Os and avoid nephrotoxins. Electrolytes replacement per protocol. Decrease Lasix 40mg daily Place on Free water 250ml Q8 GI: On Protonix 40 milligrams IV daily for GI prophylaxis. On TF- Glucerna 1.5 @45ml/hr, no residual Senna, Colace for bowel regimen, Lactulose 15mg BID, 02/24 KUB abdomen: Minimal non-specific bowel gas dilatation ID:Continue with abx per ID(Vancomycin, add Zosyn) monitor for signs of infections ( Fever, WBC) Will panculture today ( BC x2 sets, sputum and uirne) 03/09 Repeat Bld cultures-staph Epi, coag negative staph- likely contaminant 03/09 Repeat sputum culture-staph aureus Heme: Monitor CBC. Endo: SSI with Accu-Chek q. 6-hour for glycemic control. GI prophylaxis with Protonix 40 mg daily and DVT prophylaxis with SCDs and heparin SQ Doppler US LE No DVT on 02/27 Dispo: Discussed patient with STATIONARY STEAM ENGINEER. Palliative care is following. CCT 30 mins Georgia Ocampo MD Mar 14, 2017 08:26
[2017-03-14] MEDS: PANTOPRAZOLE SODIUM 40 MG VIAL IV SCH (09:00)
[2017-03-14] MEDS: PIPERACIL-TAZO 4.5 GM PREMIX 100 ML IV SCH ×3 (09:10→20:33)
--- NOTE | 2017-03-14 09:10 | HHI.IDPN ---
Subjective Subjective Remarks Notes reviewed Continues to have intermittent fevers Vent dependent, FiO2 at 100% earlier, down to 90% No new (+) BC BC with Staph epidermidis, different susceptibility results Sputum with MSSA WBC same Last CXR 03/11 stable infiltrates BP ok, not on pressors Was on dobutamine yesterday, had short VT, and it has been stopped Antibiotics Vancomycin Zosyn - added Lines PIV Past Medical History Reviewed Allergies: Coded Allergies: No Known Allergies (Verified , 02/23/17) Objective . Vital Signs Date Time Temp Pulse Resp B/P Pulse Ox O2 Delivery O2 Flow Rate FiO2 03/14/17 08:32 91 90 03/14/17 06:00 95 03/14/17 04:35 91 100 03/14/17 04:00 100 03/14/17 04:00 100 03/14/17 04:00 98.8 100 12 124/58 92 03/14/17 02:00 107 03/14/17 01:09 90 100 03/14/17 00:00 105 03/14/17 00:00 100 03/14/17 00:00 100.0 105 12 135/75 88 03/13/17 22:10 87 100 03/13/17 22:00 105 03/13/17 20:00 100 03/13/17 20:00 101.5 101 12 131/65 88 03/13/17 20:00 80 03/13/17 19:20 90 80 03/13/17 18:00 101 03/13/17 16:00 99.9 100 12 113/60 90 03/13/17 16:00 80 03/13/17 16:00 100 03/13/17 15:45 90 60 03/13/17 14:00 111 03/13/17 12:00 116 03/13/17 12:00 102.4 116 12 135/81 88 03/13/17 12:00 80 03/13/17 10:15 89 80 03/13/17 10:00 113 03/13/17 03/13/17 03/14/17 15:00 23:00 07:00 Intake Total 1675 ml 1339 ml 1238 ml Output Total 1250 ml 550 ml 475 ml Balance 425 ml 789 ml 763 ml IV Total 1250 ml 788 ml 894 ml Tube Feeding 365 ml 491 ml 344 ml Tube Irrigant 60 ml 60 ml Output Urine Total 1250 ml 550 ml 475 ml # Bowel Movements 0 0 1 . Laboratory Tests Test 03/13/17 03:46 White Blood Count 14.5 TH/MM3 Red Blood Count 4.82 MIL/MM3 Hemoglobin 14.6 GM/DL Hematocrit 44.1 % Mean Corpuscular Volume 91.6 FL Mean Corpuscular Hemoglobin 30.2 PG Mean Corpuscular Hemoglobin 33.0 % Concent Red Cell Distribution Width 16.5 % Platelet Count 122 TH/MM3 Mean Platelet Volume 10.1 FL Neutrophils (%) (Auto) 92.1 % Lymphocytes (%) (Auto) 1.8 % Monocytes (%) (Auto) 5.7 % Eosinophils (%) (Auto) 0.0 % Basophils (%) (Auto) 0.4 % Neutrophils # (Auto) 13.3 TH/MM3 Lymphocytes # (Auto) 0.3 TH/MM3 Monocytes # (Auto) 0.8 TH/MM3 Eosinophils # (Auto) 0.0 TH/MM3 Basophils # (Auto) 0.1 TH/MM3 CBC Comment AUTO DIFF Differential Comment AUTO DIFF CONFIRMED Laboratory Tests Test 03/13/17 03/14/17 03:46 04:07 Sodium Level 146 MEQ/L Potassium Level 4.2 MEQ/L Chloride Level 103 MEQ/L Carbon Dioxide Level 38.1 MEQ/L Anion Gap 5 MEQ/L Blood Urea Nitrogen 49 MG/DL Creatinine 0.79 MG/DL 1.15 MG/DL Estimat Glomerular Filtration 98 ML/MIN 63 ML/MIN Rate Random Glucose 132 MG/DL Calcium Level 10.6 MG/DL Phosphorus Level 3.3 MG/DL Magnesium Level 2.4 MG/DL Microbiology Date/Time Procedure Status Source Growth 03/12/17 10:40 Aerobic Blood Culture - Preliminary Resulted Blood Peripheral NO GROWTH IN 1 DAY 03/12/17 10:40 Anaerobic Blood Culture - Preliminary Resulted Blood Peripheral NO GROWTH IN 1 DAY 03/12/17 10:46 Aerobic Blood Culture - Preliminary Resulted Blood Peripheral NO GROWTH IN 1 DAY 03/12/17 10:46 Anaerobic Blood Culture - Preliminary Resulted Blood Peripheral NO GROWTH IN 1 DAY 03/12/17 15:50 Gram Stain - Final Resulted Sputum Endotracheal 03/12/17 15:50 Sputum Culture - Preliminary Resulted Sputum Endotracheal IMMATURE GROWTH - REINCUBATE Imaging Chest X-Ray 03/11/17 0600 Signed Impressions: Service Date/Time: Saturday, March 11, 2017 04:03 - CONCLUSION: 1. Bilateral lower lobe atelectasis versus pneumonia. There has been no significant change when compared to the prior exam. Lavell Maciel MD CT Angiography 03/02/17 1206 Signed Impressions: Service Date/Time: Thursday, March 02, 2017 13:46 - CONCLUSION: 1. No pulmonary embolus identified. 2. Small bilateral effusions with significant dependent atelectasis bilaterally. Riley Bob MD Lower Extremity Ultrasound 02/27/17 0000 Signed Impressions: Service Date/Time: Monday, February 27, 2017 08:31 - CONCLUSION: Normal examination. Nick Farrell MD Abdomen X-Ray 02/24/17 0000 Signed Impressions: Service Date/Time: Friday, February 24, 2017 10:43 - CONCLUSION: 1. Nasogastric tube just across the GE junction. 2. Minimal nonspecific bowel gas dilatation. Artur Bob MD FACR Physical Exam GENERAL: sedated, on the vent, not in respiratory distress. SKIN: Warm and moist. No generalized rash. HEENT: [place] conjunctivae. No scleral icterus. Endotracheal tube is in the mouth. NECK: Supple, nontender, no meningeal signs. CARDIOVASCULAR: Regular rate and rhythm without murmurs, gallops, or rubs. His monitor shows atrial flutter RESPIRATORY: Coarse breath sounds bilaterally. No wheezes, rales, or rhonchi. Decreased at the bases. GASTROINTESTINAL: Abdomen soft, obese, nondistended, not tender. Bowel sounds are present. No hepato-splenomegaly, or palpable masses. No guarding. MUSCULOSKELETAL: Lower extremities without clubbing, cyanosis, or edema. His upper extremities are edematous. NEUROLOGICAL: Sedated. No Babinski PSYCH: Unable to assess LINE: PIV with no evidence of infection : Kaiser catheter in place, with small amount of sediment Assessment & Plan Remarks IMPRESSION Leukocytosis, etiology? - likely reactive, ?due to his pulmonary status, has had increased O2 requirement - ?New infection, he has not been febrile - CXR looks better - ? - has no line - no diarrhea Persistent fevers, ?pulmonary - last sputum with MSSA - BC with 2 different Staph epi - no lines - UA ok - CXR no change Respiratory failure, CHF, ?ARDS - has known ischemic cardiomyopathy - has high O2 requirements BC with Staph epi - 2 different susceptibility testing, likely contaminant; repeat BC negative so far Known COPD Obesity RECOMMENDATION Follow CBC Follow new C/S CXR Continue IV Vanco Started on Zosyn Monitor progress US BUE - to eval for DVT as causing persistent fevers D/W Heather Rincon MD Mar 14, 2017 09:10
[2017-03-14] MEDS: DOCUSATE SODIUM 100 MG/10 ML UDC PO SCH ×2 (09:11→20:33)
[2017-03-14] MEDS: ASPIRIN 325 MG TAB PO SCH (09:11)
[2017-03-14] MEDS: LISINOPRIL 5 MG TAB PO SCH (09:11)
[2017-03-14] MEDS: CLOPIDOGREL 75 MG TAB PO SCH (09:11)
[2017-03-14] MEDS: LACTULOSE SYRUP 20 GM/30 ML CUP PO SCH ×2 (09:11→20:34)
[2017-03-14] MEDS: FUROSEMIDE 40 MG/4 ML VIAL IV PUSH SCH (09:11)
[2017-03-14] MEDS: SENNOSIDES SYRUP 8.8 MG/5 ML CUP PO SCH (09:11)
[2017-03-14] MEDS: methylPREDNISolone SOD SUCC 40 MG/1 ML VIAL IV PUSH SCH ×2 (09:11→20:34)
[2017-03-14 10:15] LABS: AUTOMATED NEUTROPHIL # 10.2 TH/MM3 (1.8-7.7); BASOPHIL % 0.1 % (0.0-2.0); HEMATOCRIT 42.7 % (39.0-51.0); LYMPH % 3.1 % (9.0-44.0); LYMPHOCYTE # 0.4 TH/MM3 (1.0-4.8); MEAN CELL VOLUME 92.6 FL (80.0-100.0); MEAN CORPUSCULAR HEMOGLOBIN 30.2 PG (27.0-34.0); MEAN CORPUSCULAR HGB CONC 32.6 % (32.0-36.0); MONO % 5.9 % (0.0-8.0); NEUT % 90.9 % (16.0-70.0); PLATELET COUNT 125 TH/MM3 (150-450); RED BLOOD COUNT 4.61 MIL/MM3 (4.50-5.90); RED CELL DISTRIBUTION WIDTH 15.9 % (11.6-17.2); WHITE BLOOD COUNT 11.3 TH/MM3 (4.0-11.0)
[2017-03-14 10:16] LABS: HEMO FLAGS DIFF FINAL
[2017-03-14 10:37] LABS: BICARBONATE 37.5 MEQ/L (21.0-32.0); MAGNESIUM 2.9 MG/DL (1.5-2.5); POTASSIUM 4.1 MEQ/L (3.5-5.1)
[2017-03-14 12:12] LABS: BACTERIA, URINE FEW /hpf; BLOOD, URINE NEG (NEG); COMMENT (UR) CULTURE INDICATED; CULTURE IF INDICATED CULTURE INDICATED; GLUCOSE,URINE NEG (NEG); GRANULAR CAST, URINE 5 /lpf; KETONE, URINE NEG (NEG); MUCUS URINE FEW /lpf (OCC); NITRITE,URINE NEG (NEG); SQUAMOUS EPITHELIAL CELL URINE <1 /hpf (0-5); URINE COLOR YELLOW (YELLW/STRAW)
--- NOTE | 2017-03-14 12:16 | RADRPT ---
EXAM DATE/TIME: 03/14/2017 09:08 [facility] COMPARISON: CHEST SINGLE AP, March 11, 2017, 4:03. INDICATIONS : Respiratory failure. MEDICAL HISTORY : Hypertension. Hypercholesterolemia. Arthritis. COPD. SURGICAL HISTORY : Pacemaker. CABG. ENCOUNTER: Subsequent ACUITY: 2 weeks PAIN SCORE: Non-responsive. LOCATION: Bilateral chest FINDINGS: ET tube and nasogastric tube and pacemaker are in good position. The heart remains enlarged. Mild i nterstitial edema persists. There is better aeration on the right. Persistent consolidative changes remain on the left. CONCLUSION: 1. Interval improvement with less interstitial edema. 2. Persistent consolidative changes left base. Artur Bob MD FACR on March 14, 2017 at 10:09 Board Certified Radiologist. This report was verified electronically.
[2017-03-14] MEDS: FREE WATER G-TUBE SCH ×2 (14:00→22:00)
[2017-03-14] MEDS: VANCOMYCIN INJ 1,700 MG in SODIUM CHLORID 0.9% 500 ML INJ 500 ML IV SCH (16:30)
[2017-03-14] MEDS: ACETAMINOPHEN 325 MG TAB PO PRN (17:08)
[2017-03-14] MEDS: DOBUTamine PREMIX DRIP 250 ML IV SCH (19:35)
--- NOTE | 2017-03-14 20:29 | RADRPT ---
EXAM DATE/TIME: 03/14/2017 18:49 [facility] COMPARISON: No previous studies available for comparison. INDICATIONS : Bilateral upper extremity swelling. MEDICAL HISTORY : Chronic obstructive pulmonary disease. Myocardial infarction. Hypercholesterolemia. Congestive heart failure. Emphysema. Ulcer. Arthritis. SURGICAL HISTORY : Pacemaker.Appendectomy. CABG. ORIF, left forearm. ENCOUNTER: Initial ACUITY: 1 day PAIN SCORE: Non-responsive LOCATION: Bilateral arms. FINDINGS: RIGHT UPPER EXTREMITY: There is echogenic material throughout the cephalic vein. The vein is distended. No appreciable flow within the cephalic vein. The remaining venous structures show normal compressibility and venous wave forms. LEFT UPPER EXTREMITY: There is echogenic material throughout the cephalic vein. The vein is distended. No appreciable flow within the cephalic vein. The remaining venous structures show normal compressibility and venous wave forms. There is questionable incomplete compression of the left subclavian vein. CONCLUSION: 1. Thrombus throughout the cephalic veins bilaterally. These are superficial venous structures. 2. Questionable minimal thrombus within the left subclavian vein. Garrick Hinton Jr., MD on March 14, 2017 at 20:24 Board Certified Radiologist. This report was verified electronically.
[2017-03-14] MEDS: ATORVASTATIN 40 MG TAB PO SCH (20:34)
[2017-03-15] VITALS (18 sets, daily range): BP systolic 96–157; BP diastolic 54–99; PULSE 91–119; RESP 12–15; TEMP 98.3–101.4; O2SAT 90–98
[2017-03-15] MEDS: fentaNYL DRIP 250 ML IV SCH ×3 (00:20→23:30)
[2017-03-15] MEDS: PROPOFOL 1000 MG/100 ML INJ 100 ML IV SCH ×6 (00:20→20:34)
[2017-03-15] MEDS: CHLORHEXIDINE GLUCONATE 2 % 1 PACK (2 CLOTHS) TOP SCH (04:00)
[2017-03-15] MEDS: PIPERACIL-TAZO 4.5 GM PREMIX 100 ML IV SCH ×4 (04:03→20:08)
[2017-03-15] MEDS: INSULIN NovoLIN REGULAR SUPPLEMENTAL SCALE SQ SCH ×4 (05:00→22:08)
[2017-03-15] MEDS: FREE WATER G-TUBE SCH ×3 (05:11→22:00)
[2017-03-15] MEDS: HEPARIN SODIUM - SQ 10,000 UNITS/ML VIAL SQ SCH (05:11)
[2017-03-15] MEDS: DOBUTamine PREMIX DRIP 250 ML IV SCH (05:11)
[2017-03-15 06:24] LABS: BICARBONATE 36.5 MEQ/L (21.0-32.0); POTASSIUM 4.3 MEQ/L (3.5-5.1)
[2017-03-15 06:28] LABS: AUTOMATED NEUTROPHIL # 12.8 TH/MM3 (1.8-7.7); BASOPHIL % 0.2 % (0.0-2.0); EOSINOPHIL % 0.1 % (0.0-4.0); HEMATOCRIT 42.5 % (39.0-51.0); HEMO FLAGS DIFF FINAL; LYMPH % 1.8 % (9.0-44.0); LYMPHOCYTE # 0.2 TH/MM3 (1.0-4.8); MEAN CELL VOLUME 93.5 FL (80.0-100.0); MEAN CORPUSCULAR HEMOGLOBIN 29.8 PG (27.0-34.0); MEAN CORPUSCULAR HGB CONC 31.9 % (32.0-36.0); MONO % 4.1 % (0.0-8.0); NEUT % 93.8 % (16.0-70.0); PLATELET COUNT 145 TH/MM3 (150-450); RED BLOOD COUNT 4.55 MIL/MM3 (4.50-5.90); RED CELL DISTRIBUTION WIDTH 16.6 % (11.6-17.2); WHITE BLOOD COUNT 13.6 TH/MM3 (4.0-11.0)
--- NOTE | 2017-03-15 07:39 | HHI.CCPN ---
Subjective Remarks/Hospital Course The patient is a 66-year-old male with past medical history of COPD, cardiomyopathy, hypertension, gastroesophageal reflux disease, hyperlipidemia and coronary artery disease. The patient presented to [facility] ED with a 2-week history of progressive worsening shortness of breath. On arrival to the ED he was initially placed on a non-rebreather mask and ABG was performed which showed acute hypercapnic respiratory failure with a pH of 7.14, CO2 121, pAO2 141, bicarb 40, sats 93%. His laboratory data significant for hyperkalemia with potassium level 6.0 and acute renal failure with a BUN of 43 and creatinine 2.07 respectively. The chest x-ray showed cardiomegaly and findings of vascular congestion without overt failure. In the ED the patient was intubated with etomidate and rocuronium and placed on full mechanical ventilation. In addition, he is scheduled to receive 10 units IV regular insulin, 1 amp of D50 and calcium gluconate for hyperkalemia. He received cefepime, azithromycin, Solu-Medrol 125 milligrams IV push and bronchodilator treatment. When seen the patient is on Diprivan infusion for sedation and full mechanical ventilation. Per the patient is not on any oxygen at home and he occasionally smokes cigarettes. 02/24 Patient is intubated and sedated with Diprivan and Fentanyl. Switched to PC/ AC with RR 12, IP:24, IT:1.06, PEEP: 8 and FIO2 100%. CXR this morning showed interval development of bilateral perihilar and lower lung zone airspace opacity he was given Lasix 60mg total overnight. 02/25 Patient remains sedated and intubated with Diprivan and Fentanyl. Afebrile.On PC/AC with RR 12, IP:22, IT:1.10, PEEP:10, FIO2 70%. Afebrile. Renal function worse today with Cr: 1.90 from 1.72 UO: 1150ml in 24 hrs 02/26 No acute events overnight. Sedated with Fentanyl and Diprivan and intubated. Afebrile. His O2 requirements is less now on PC/AC with IP:22, IT: 1.1 with PEEP: 10 and FIO2 55%. Renal function improving with Cr: 1.42 today from 1.90. Tolerating tube feeds. 02/27 Patient remains sedated with Diprivan and Fentanyl infusion and intubated. Afebrile. 02/28: Remains sedated, orally intubated on mechanical ventilation. Being diuresed with Bumex. Tolerating tube feeds. 03/01: Remains sedated, orally intubated on mechanical ventilation. Being diabetes. Remains on PEEP of 10 and FiO2 60% 03/02 Patient remains sedated with Diprivan and Fentanyl and intubated. On PC/AC with PEEP: 10 and FIO2 80% overnight and sats 93-94%. Afebrile. 03/03: The patient remains on high respiratory requirements PEEP of 10, and FiO2 70%. 03/04: Tmax 99.9. Overnight the patient was noted to have desaturations the patient received a bolus of midazolam and fentanyl for ventilator dyssynchrony. The patient was redosed with Diamox with approximately 2.5 L diuresis in the last 12 hours. The patient continues on an FiO2 of 70% with PEEP of 10 to maintain an O2 sat of 90%. 03/05: Afebrile. Patient's FiO2 remains at 60% to maintain O2sat ranging in 92% . Future plans for tracheostomy discussed with when ventilator requirements are decreased. Patient currently is on a PEEP of 10. Patient receiving multiple doses of diuretics chest x-ray still showing increased vascular congestion. Cardiology following metalazone added to medication regimen per cardiology for diuresis. 03/06: Patient's O2 requirements were increased overnight to FiO2 of 90%. The patient's FiO2 has been decreased now currently to 70% O2 sat is 90% ABG is pending. The patient's diuresis effective, 1 kg weight loss in 24 hours. 03/07: The patient continues to have effective diuresis. The patient's O2 requirements currently FiO2 is 70% to maintain a sat of 90-91%. Discussion with Ms. London yesterday, she would like to discuss with palliative team goals of care. Palliative care consult initiated. 03/08: The patient was less responsive to diuretics today, positive weight balance last 24 hours. The patient was placed on a Lasix infusion, noted occasional PVCs on telemetry. Patient potassium repletion ongoing, schedule potassium PO intake increased to 50 mEq twice a day. Free water flushes placed on hold, was sodium level 145 will continue to monitor. Chest x-ray shows slight improvement. Continued management of ventilator settings ARDS protocol, maintaining PaO2 60 or greater and adjusting vent settings based on PaO2. Sedation vacation attempted today by OUTSOLE CEMENTER, GCS 11T. Noted WBC elevation today ID consulted. 03/09: Today the patient was noted to have increasing FiO2 requirements with a PaO2 of 61. FiO2 was increased to 100%, PEEP was gradually increased to 12, then 14. The patient subsequently became hypotensive, likely due to increasing PEEP, but chest x-ray also obtained to rule out pneumothorax which was clear. The patient subsequently was laced on phenylephrine low-dose 20 mcgs which was eventually weaned off. The patient was placed on PEEP at 7 and FiO2 of 100%, sedation was weaned to lower dose. Palliative care also discussed with goals of care and the patient was made DNR. 03/10 noted creatinine elevation last night, Lasix discontinued. Dobutamine initiated per cardiology this morning. The patient continues to have high requirements on a PEEP of 8 and FiO2 of 100% his PaO2 49.2. PEEP has been increased plan to initiate Flolan. 03/11: Tmax 100.5. FRANK resolved with dobutamine infusion, heart rate 110. Microbiology report bacteremia gram-positive cocci and sputum. Patient currently on Diflucan. Will begin Linezolid in the setting of recent FRANK and oliguria, and await further recommendations from infectious disease storage consultant. Respiratory status deteriorating. The patient was placed on Flolan last night PaO2 67. Patient remains on a PEEP of 10, unable to advance secondary to hypotension. 03/12 Patient remains sedated with Diprivan, Fentanyl and intubated. On Dobutamine 2.5 mics and Flolan. Remains On PC/AC with RR 12, IP:22, IT:1.20, PEEP;10 and FIo2 90%. Afebrile. 03/13 Patient is sedated with Diprivan and Fentanyl and intubated. On PC/AC with PEEP:12, FIO2 80%. Tmax 101.7 Remains on Dobutamine and Flolan. 03/14 Patient remains sedated and intubated. On PC/AC with PEEP:12 and FIO2 100% . T: 101.5 last night. On Flolan off Dobutamine. 03/15 No acute events overnight. Sedated with Diprivan and Fentanyl. On PC/AC with PEEP: 12, FIO2 down to 70%. Tmax 101.6. On Flolan nebs. Objective Vital Signs Date Time Temp Pulse Resp B/P Pulse Ox O2 Delivery O2 Flow Rate FiO2 03/15/17 06:00 98 03/15/17 04:09 93 90 03/15/17 04:00 100.8 12 128/66 Intake and Output 03/14/17 03/14/17 03/15/17 08:00 16:00 00:00 Intake Total 1238 ml 1225 ml 1692 ml Output Total 475 ml 1000 ml 750 ml Balance 763 ml 225 ml 942 ml Result Diagram: 03/15/17 0503 03/15/17 0503 Other Results Laboratory Tests Test 03/14/17 03/14/17 03/15/17 08:48 11:30 05:03 White Blood Count 11.3 TH/MM3 13.6 TH/MM3 Red Blood Count 4.61 MIL/MM3 4.55 MIL/MM3 Hemoglobin 13.9 GM/DL 13.6 GM/DL Hematocrit 42.7 % 42.5 % Mean Corpuscular Volume 92.6 FL 93.5 FL Mean Corpuscular Hemoglobin 30.2 PG 29.8 PG Mean Corpuscular Hemoglobin 32.6 % 31.9 % Concent Red Cell Distribution Width 15.9 % 16.6 % Platelet Count 125 TH/MM3 145 TH/MM3 Mean Platelet Volume 10.5 FL 10.7 FL Neutrophils (%) (Auto) 90.9 % 93.8 % Lymphocytes (%) (Auto) 3.1 % 1.8 % Monocytes (%) (Auto) 5.9 % 4.1 % Eosinophils (%) (Auto) 0.0 % 0.1 % Basophils (%) (Auto) 0.1 % 0.2 % Neutrophils # (Auto) 10.2 TH/MM3 12.8 TH/MM3 Lymphocytes # (Auto) 0.4 TH/MM3 0.2 TH/MM3 Monocytes # (Auto) 0.7 TH/MM3 0.6 TH/MM3 Eosinophils # (Auto) 0.0 TH/MM3 0.0 TH/MM3 Basophils # (Auto) 0.0 TH/MM3 0.0 TH/MM3 CBC Comment DIFF FINAL DIFF FINAL Differential Comment Sodium Level 148 MEQ/L 147 MEQ/L Potassium Level 4.1 MEQ/L 4.3 MEQ/L Chloride Level 105 MEQ/L 104 MEQ/L Carbon Dioxide Level 37.5 MEQ/L 36.5 MEQ/L Anion Gap 6 MEQ/L 7 MEQ/L Blood Urea Nitrogen 80 MG/DL 75 MG/DL Creatinine 0.93 MG/DL 1.02 MG/DL Estimat Glomerular Filtration 81 ML/MIN 73 ML/MIN Rate Random Glucose 133 MG/DL 123 MG/DL Calcium Level 10.0 MG/DL 9.9 MG/DL Phosphorus Level 4.5 MG/DL Magnesium Level 2.9 MG/DL Urine Color YELLOW Urine Turbidity HAZY Urine pH 6.0 Urine Specific [place] 1.015 Urine Protein NEG mg/dL Urine Glucose (UA) NEG mg/dL Urine Ketones NEG mg/dL Urine Occult Blood NEG Urine Nitrite NEG Urine Bilirubin NEG Urine Urobilinogen LESS THAN 2.0 MG/DL Urine Leukocyte Esterase NEG Urine RBC 5 /hpf Urine WBC 3 /hpf Urine Squamous Epithelial <1 /hpf Cells Urine Amorphous Sediment SMALL Urine Bacteria FEW /hpf Urine Granular Casts 5 /lpf Urine Mucus FEW /lpf Microscopic Urinalysis Comment CULTURE INDICATED Imaging Last Impressions Upper Extremity Ultrasound 03/14/17 0000 Signed Impressions: Service Date/Time: Tuesday, March 14, 2017 18:49 - CONCLUSION: 1. Thrombus throughout the cephalic veins bilaterally. These are superficial venous structures. 2. Questionable minimal thrombus within the left subclavian vein. Garrick Hinton Jr., MD Chest X-Ray 03/14/17 0000 Signed Impressions: Service Date/Time: Tuesday, March 14, 2017 09:08 - CONCLUSION: 1. Interval improvement with less interstitial edema. 2. Persistent consolidative changes left base. Artur Bob MD FACR CT Angiography 03/02/17 1206 Signed Impressions: Service Date/Time: Thursday, March 02, 2017 13:46 - CONCLUSION: 1. No pulmonary embolus identified. 2. Small bilateral effusions with significant dependent atelectasis bilaterally. Riley Bob MD Lower Extremity Ultrasound 02/27/17 0000 Signed Impressions: Service Date/Time: Monday, February 27, 2017 08:31 - CONCLUSION: Normal examination. Nick Farrell MD Abdomen X-Ray 02/24/17 0000 Signed Impressions: Service Date/Time: Friday, February 24, 2017 10:43 - CONCLUSION: 1. Nasogastric tube just across the GE junction. 2. Minimal nonspecific bowel gas dilatation. Artur Bob MD FACR Objective Remarks GENERAL: Patient is 66 yo obese male intubated and sedated SKIN: Warm and dry. HEAD: Normocephalic. EYES: No scleral icterus. No injection or drainage. NECK: Supple, trachea midline. No JVD or lymphadenopathy. CARDIOVASCULAR:Tachycardic without murmurs, gallops, or rubs. RESPIRATORY: On mechanical ventilation, orally intubated, Breath sounds equal bilaterally. Few Coarse BS GASTROINTESTINAL: Abdomen soft, non-tender, nondistended. OGT, tube feedings infusing MUSCULOSKELETAL: 2+ bilateral edema in upper extremities. Neuro: Sedated, intubated Date of Removal: Mar 04, 2017 Line: Central Venous Catheter Side: Right A/P Assessment and Plan 1. Acute hypercapnic and hypoxemic respiratory failure. 2. COPD exacerbation. 3. Acute renal failure. 4. Hypernatremia 5. Obstructive sleep apnea and morbid obesity. 6. Ischemic dilated Cardiomyopathy. S/P AICD 03/2015 7. History of coronary artery disease. 8. Gastroesophageal reflux disease. 9. Hypertension. 10. Hyperlipidemia. 11 Pulm edema 12. Acute on chronic systolic and diastolic CHF 13. Pulmonary hypertension 14. Bacteremia Plan: Neuro: On Diprivan and Fentanyl infusion for sedation. Daily sedation vacation when appropriate. CV: Monitor HR and BP keep MAP>65mmHg On aspirin 325 milligrams p.o. daily and Plavix 75 mg p.o. daily. Prinivil 5mg daily 01/2017 Echo showed EF 40-45%, nl LV diastolic function, No RWMA Cardiology following-Dr. Cole. Off Dobutamine. Pulm: On PC/AC RR 12, IP:22, IT:1.1 PEEP: 12, FIO2: 70%, decrease FIO2 as kristie. Continue with vent support and maintain sats above 92%. Bronchodilators every 4 hours, Solu-Medrol 40 mg IV BID. Pulm-Dr. Lashell Padron following CTA chest 03/02 showed no PE, small pleural effusions Continue with Flolan nebs 8ml/hr(30,000 ng/ml) : Monitor renal function Is and Os and avoid nephrotoxins. Electrolytes replacement per protocol. Lasix 40mg daily on Free water 250ml Q8 GI: On Protonix 40 milligrams IV daily for GI prophylaxis. On TF- Glucerna 1.5 @45ml/hr, no residuals Senna, Colace for bowel regimen, Lactulose 15mg BID, 02/24 KUB abdomen: Minimal non-specific bowel gas dilatation ID:Continue with abx per ID(Vancomycin, Zosyn) monitor for signs of infections ( Fever, WBC) Pancultured 03/14( BC x2 sets, sputum and uirne) 03/09 Repeat Bld cultures-staph Epi, coag negative staph- likely contaminant 03/09 Repeat sputum culture-staph aureus Heme: Monitor CBC. Endo: SSI with Accu-Chek q. 6-hour for glycemic control. GI prophylaxis with Protonix 40 mg daily and DVT prophylaxis with SCDs, on heparin Sq will switch to heparin drip. Doppler US LE No DVT on 02/27 Doppler US UE: 03/14-Thrombus throughout the cephalic veins bilaterally. ? minimal thrombus within the left subclavian vein. Dispo: Discussed patient with OUTSOLE CEMENTER. Palliative care is following. CCT 30 mins Georgia Ocampo MD Mar 15, 2017 07:39
[2017-03-15] MEDS: CHLORHEXIDINE 0.12% (ORAL KIT) 15 ML CUP MT SCH ×2 (08:40→20:06)
[2017-03-15] MEDS: methylPREDNISolone SOD SUCC 40 MG/1 ML VIAL IV PUSH SCH ×2 (08:41→20:08)
[2017-03-15] MEDS: PANTOPRAZOLE SODIUM 40 MG VIAL IV SCH (08:41)
[2017-03-15] MEDS: FUROSEMIDE 40 MG/4 ML VIAL IV PUSH SCH (08:41)
[2017-03-15] MEDS: DOCUSATE SODIUM 100 MG/10 ML UDC PO SCH ×2 (08:42→20:09)
[2017-03-15] MEDS: CLOPIDOGREL 75 MG TAB PO SCH (08:42)
[2017-03-15] MEDS: LACTULOSE SYRUP 20 GM/30 ML CUP PO SCH ×2 (08:42→20:09)
[2017-03-15] MEDS: SENNOSIDES SYRUP 8.8 MG/5 ML CUP PO SCH (08:42)
[2017-03-15] MEDS: ASPIRIN 325 MG TAB PO SCH (08:42)
[2017-03-15] MEDS: LISINOPRIL 5 MG TAB PO SCH (08:44)
[2017-03-15 09:44] LABS: MEAN CELL VOLUME 92.8 FL (80.0-100.0); MEAN CORPUSCULAR HEMOGLOBIN 29.9 PG (27.0-34.0); MEAN CORPUSCULAR HGB CONC 32.3 % (32.0-36.0); PLATELET COUNT 145 TH/MM3 (150-450); RED BLOOD COUNT 4.52 MIL/MM3 (4.50-5.90); RED CELL DISTRIBUTION WIDTH 16.1 % (11.6-17.2); REVIEW FLAG FINAL; WHITE BLOOD COUNT 13.7 TH/MM3 (4.0-11.0)
[2017-03-15 09:55] LABS: APTT (PATIENT) 25.1 SEC (24.3-30.1); PROTHROMBIN TIME - PATIENT 10.8 SEC (9.8-11.6)
[2017-03-15] MEDS: VANCOMYCIN INJ 1,700 MG in SODIUM CHLORID 0.9% 500 ML INJ 500 ML IV SCH (10:12)
[2017-03-15] MEDS: HEPARIN-D5W INJ 250 ML IV SCH (10:24)
[2017-03-15] MEDS: EPOPROSTENOL NEB SOLUTION 50 NG/KG/MIN 100 ML NEB SCH ×4 (12:43→23:29)
--- NOTE | 2017-03-15 13:11 | HHI.IDPN ---
Subjective Subjective Remarks Notes reviewed Temps low grade On the vent, FiO2 lower 0.7 No new (+) BC BC with Staph epidermidis, different susceptibility results Sputum with MSSA WBC same BP ok, not on pressors US DAXA has clots in cephalic vein, and possible minimal clot in LSC Antibiotics Vancomycin Zosyn Lines PIV Past Medical History Reviewed Allergies: Coded Allergies: No Known Allergies (Verified , 02/23/17) Objective . Vital Signs Date Time Temp Pulse Resp B/P Pulse Ox O2 Delivery O2 Flow Rate FiO2 03/15/17 12:00 65 03/15/17 12:00 100.1 101 12 126/70 90 03/15/17 12:00 111 03/15/17 11:04 90 65 03/15/17 10:00 99 03/15/17 08:00 70 03/15/17 08:00 99.7 104 12 140/68 93 03/15/17 08:00 98 03/15/17 07:38 95 65 03/15/17 06:00 98 03/15/17 04:09 93 90 03/15/17 04:00 100.8 101 12 128/66 95 03/15/17 04:00 101 03/15/17 04:00 90 03/15/17 02:00 110 03/15/17 00:36 92 90 03/15/17 00:00 90 03/15/17 00:00 100.0 97 12 157/99 93 03/15/17 00:00 97 03/14/17 22:00 108 03/14/17 21:09 92 90 03/14/17 20:00 90 03/14/17 20:00 92 03/14/17 20:00 100.7 100 12 128/58 95 03/14/17 18:00 109 03/14/17 17:40 94 90 03/14/17 16:00 101 03/14/17 16:00 101.6 101 12 122/57 92 03/14/17 16:00 90 03/14/17 14:00 101 03/14/17 03/14/17 03/15/17 15:00 23:00 07:00 Intake Total 1225 ml 1692 ml 856 ml Output Total 1000 ml 750 ml 750 ml Balance 225 ml 942 ml 106 ml IV Total 700 ml 1061 ml 605 ml Tube Feeding 400 ml 381 ml 251 ml Other 125 ml 250 ml Output Urine Total 1000 ml 750 ml 750 ml # Bowel Movements 0 0 1 . Laboratory Tests Test 03/14/17 03/15/17 03/15/17 08:48 05:03 08:45 White Blood Count 11.3 TH/MM3 13.6 TH/MM3 13.7 TH/MM3 Red Blood Count 4.61 MIL/MM3 4.55 MIL/MM3 4.52 MIL/MM3 Hemoglobin 13.9 GM/DL 13.6 GM/DL 13.5 GM/DL Hematocrit 42.7 % 42.5 % 42.0 % Mean Corpuscular Volume 92.6 FL 93.5 FL 92.8 FL Mean Corpuscular Hemoglobin 30.2 PG 29.8 PG 29.9 PG Mean Corpuscular Hemoglobin 32.6 % 31.9 % 32.3 % Concent Red Cell Distribution Width 15.9 % 16.6 % 16.1 % Platelet Count 125 TH/MM3 145 TH/MM3 145 TH/MM3 Mean Platelet Volume 10.5 FL 10.7 FL 10.3 FL Neutrophils (%) (Auto) 90.9 % 93.8 % Lymphocytes (%) (Auto) 3.1 % 1.8 % Monocytes (%) (Auto) 5.9 % 4.1 % Eosinophils (%) (Auto) 0.0 % 0.1 % Basophils (%) (Auto) 0.1 % 0.2 % Neutrophils # (Auto) 10.2 TH/MM3 12.8 TH/MM3 Lymphocytes # (Auto) 0.4 TH/MM3 0.2 TH/MM3 Monocytes # (Auto) 0.7 TH/MM3 0.6 TH/MM3 Eosinophils # (Auto) 0.0 TH/MM3 0.0 TH/MM3 Basophils # (Auto) 0.0 TH/MM3 0.0 TH/MM3 CBC Comment DIFF FINAL DIFF FINAL Differential Comment Laboratory Tests Test 03/14/17 03/14/17 03/15/17 04:07 08:48 05:03 Creatinine 1.15 MG/DL 0.93 MG/DL 1.02 MG/DL Estimat Glomerular Filtration 63 ML/MIN 81 ML/MIN 73 ML/MIN Rate Sodium Level 148 MEQ/L 147 MEQ/L Potassium Level 4.1 MEQ/L 4.3 MEQ/L Chloride Level 105 MEQ/L 104 MEQ/L Carbon Dioxide Level 37.5 MEQ/L 36.5 MEQ/L Anion Gap 6 MEQ/L 7 MEQ/L Blood Urea Nitrogen 80 MG/DL 75 MG/DL Random Glucose 133 MG/DL 123 MG/DL Calcium Level 10.0 MG/DL 9.9 MG/DL Phosphorus Level 4.5 MG/DL Magnesium Level 2.9 MG/DL Microbiology Date/Time Procedure Status Source Growth 03/12/17 15:50 Gram Stain - Final Complete Sputum Endotracheal 03/12/17 15:50 Sputum Culture - Final Complete Sputum Endotracheal HEAVY GROWTH NORMAL RESPIRATORY DANIEL 03/14/17 08:48 Aerobic Blood Culture - Preliminary Resulted Blood Peripheral NO GROWTH IN 1 DAY 03/14/17 08:48 Anaerobic Blood Culture - Preliminary Resulted Blood Peripheral NO GROWTH IN 1 DAY 03/14/17 08:53 Aerobic Blood Culture - Preliminary Resulted Blood Peripheral NO GROWTH IN 1 DAY 03/14/17 08:53 Anaerobic Blood Culture - Preliminary Resulted Blood Peripheral NO GROWTH IN 1 DAY 03/14/17 11:30 Gram Stain - Final Resulted Sputum Endotracheal 03/14/17 11:30 Sputum Culture - Preliminary Resulted Sputum Endotracheal MODERATE GROWTH NORMAL RESPIRATORY FL... 03/14/17 11:30 Urine Culture - Preliminary Resulted Urine Catheterized Urine IMMATURE GROWTH - REINCUBATE Imaging Chest X-Ray 03/11/17 0600 Signed Impressions: Service Date/Time: Saturday, March 11, 2017 04:03 - CONCLUSION: 1. Bilateral lower lobe atelectasis versus pneumonia. There has been no significant change when compared to the prior exam. Lavell Maciel MD CT Angiography 03/02/17 1206 Signed Impressions: Service Date/Time: Thursday, March 02, 2017 13:46 - CONCLUSION: 1. No pulmonary embolus identified. 2. Small bilateral effusions with significant dependent atelectasis bilaterally. Riley Bob MD Lower Extremity Ultrasound 02/27/17 0000 Signed Impressions: Service Date/Time: Monday, February 27, 2017 08:31 - CONCLUSION: Normal examination. Nick Farrell MD Abdomen X-Ray 02/24/17 0000 Signed Impressions: Service Date/Time: Friday, February 24, 2017 10:43 - CONCLUSION: 1. Nasogastric tube just across the GE junction. 2. Minimal nonspecific bowel gas dilatation. Artur Bob MD FACR Physical Exam GENERAL: sedated, on the vent, not in respiratory distress. SKIN: Warm and moist. No generalized rash. HEENT: [place] conjunctivae. No scleral icterus. Endotracheal tube is in the mouth. NECK: Supple, nontender, no meningeal signs. CARDIOVASCULAR: Regular rate and rhythm without murmurs, gallops, or rubs. His monitor shows atrial flutter RESPIRATORY: Coarse breath sounds bilaterally. No wheezes, rales, or rhonchi. Decreased at the bases. GASTROINTESTINAL: Abdomen soft, obese, nondistended, not tender. Bowel sounds are present. No hepato-splenomegaly, or palpable masses. No guarding. MUSCULOSKELETAL: Lower extremities without clubbing, cyanosis, or edema. His upper extremities are edematous. NEUROLOGICAL: Sedated. No Babinski PSYCH: Unable to assess LINE: PIV with no evidence of infection : Kaiser catheter in place, with small amount of sediment Assessment & Plan Remarks IMPRESSION Leukocytosis, etiology? - likely reactive, ?due to his pulmonary status, has had increased O2 requirement - ?New infection, he has not been febrile - CXR looks better - ? - has no line - no diarrhea Fevers - ?partly due to vein clots; cephalic are superficial veins Respiratory failure - has known ischemic cardiomyopathy BC with Coag Neg STaph, no final ID yet - ?significance Known COPD Obesity RECOMMENDATION Follow CBC Follow C/S On IV Vanco - continue for now Monitor progress Also on Zosyn now Follow Heather Hammond MD Mar 15, 2017 13:11
[2017-03-15 15:49] LABS: APTT (PATIENT) 50.3 SEC (24.3-30.1)
[2017-03-15] MEDS: ATORVASTATIN 40 MG TAB PO SCH (20:09)
[2017-03-15 23:07] LABS: APTT (PATIENT) 82.8 SEC (24.3-30.1)
[2017-03-16] VITALS (18 sets, daily range): BP systolic 105–123; BP diastolic 57–64; PULSE 88–124; RESP 15–28; TEMP 98.4–99.5; O2SAT 90–100
[2017-03-16] MEDS: PROPOFOL 1000 MG/100 ML INJ 100 ML IV SCH ×5 (00:12→18:34)
[2017-03-16] MEDS: HEPARIN-D5W INJ 250 ML IV SCH ×2 (00:15→18:34)
[2017-03-16] MEDS: PIPERACIL-TAZO 4.5 GM PREMIX 100 ML IV SCH ×4 (03:00→20:59)
[2017-03-16] MEDS: CHLORHEXIDINE GLUCONATE 2 % 1 PACK (2 CLOTHS) TOP SCH (04:00)
[2017-03-16] MEDS: VANCOMYCIN INJ 1,700 MG in SODIUM CHLORID 0.9% 500 ML INJ 500 ML IV SCH (04:11)
[2017-03-16] MEDS: INSULIN NovoLIN REGULAR SUPPLEMENTAL SCALE SQ SCH ×4 (04:51→23:00)
[2017-03-16 05:19] LABS: AUTOMATED NEUTROPHIL # 14.5 TH/MM3 (1.8-7.7); BASOPHIL # 0.1 TH/MM3 (0-0.2); BASOPHIL % 0.4 % (0.0-2.0); HEMATOCRIT 41.9 % (39.0-51.0); HEMO FLAGS DIFF FINAL; LYMPH % 2.6 % (9.0-44.0); LYMPHOCYTE # 0.4 TH/MM3 (1.0-4.8); MEAN CELL VOLUME 93.9 FL (80.0-100.0); MEAN CORPUSCULAR HEMOGLOBIN 29.9 PG (27.0-34.0); MEAN CORPUSCULAR HGB CONC 31.8 % (32.0-36.0); MONO % 7.5 % (0.0-8.0); NEUT % 89.5 % (16.0-70.0); PLATELET COUNT 156 TH/MM3 (150-450); RED BLOOD COUNT 4.46 MIL/MM3 (4.50-5.90); RED CELL DISTRIBUTION WIDTH 15.8 % (11.6-17.2); WHITE BLOOD COUNT 16.2 TH/MM3 (4.0-11.0)
[2017-03-16 05:32] LABS: APTT (PATIENT) 87.8 SEC (24.3-30.1)
[2017-03-16 05:46] LABS: BICARBONATE 37.7 MEQ/L (21.0-32.0)
[2017-03-16] MEDS: FREE WATER G-TUBE SCH ×3 (06:00→18:00)
[2017-03-16] MEDS: CHLORHEXIDINE 0.12% (ORAL KIT) 15 ML CUP MT SCH (08:00)
[2017-03-16] MEDS: methylPREDNISolone SOD SUCC 40 MG/1 ML VIAL IV PUSH SCH ×2 (09:20→20:59)
[2017-03-16] MEDS: PANTOPRAZOLE SODIUM 40 MG VIAL IV SCH (09:20)
[2017-03-16] MEDS: ASPIRIN 325 MG TAB PO SCH (09:20)
[2017-03-16] MEDS: DOCUSATE SODIUM 100 MG/10 ML UDC PO SCH ×2 (09:20→20:59)
[2017-03-16] MEDS: LACTULOSE SYRUP 20 GM/30 ML CUP PO SCH (09:20)
[2017-03-16] MEDS: LISINOPRIL 5 MG TAB PO SCH (09:20)
[2017-03-16] MEDS: CLOPIDOGREL 75 MG TAB PO SCH (09:20)
[2017-03-16] MEDS: FUROSEMIDE 40 MG/4 ML VIAL IV PUSH SCH (09:20)
[2017-03-16] MEDS: SENNOSIDES SYRUP 8.8 MG/5 ML CUP PO SCH (09:20)
--- NOTE | 2017-03-16 11:05 | HHI.CCPN ---
Subjective Remarks/Hospital Course The patient is a 66-year-old male with past medical history of COPD, cardiomyopathy, hypertension, gastroesophageal reflux disease, hyperlipidemia and coronary artery disease. The patient presented to [facility] [place] ED with a 2-week history of progressive worsening shortness of breath. On arrival to the ED he was initially placed on a non-rebreather mask and ABG was performed which showed acute hypercapnic respiratory failure with a pH of 7.14, CO2 121, pAO2 141, bicarb 40, sats 93%. His laboratory data significant for hyperkalemia with potassium level 6.0 and acute renal failure with a BUN of 43 and creatinine 2.07 respectively. The chest x-ray showed cardiomegaly and findings of vascular congestion without overt failure. In the ED the patient was intubated with etomidate and rocuronium and placed on full mechanical ventilation. In addition, he is scheduled to receive 10 units IV regular insulin, 1 amp of D50 and calcium gluconate for hyperkalemia. He received cefepime, azithromycin, Solu-Medrol 125 milligrams IV push and bronchodilator treatment. When seen the patient is on Diprivan infusion for sedation and full mechanical ventilation. Per the patient is not on any oxygen at home and he occasionally smokes cigarettes. 02/24 Patient is intubated and sedated with Diprivan and Fentanyl. Switched to PC/ AC with RR 12, IP:24, IT:1.06, PEEP: 8 and FIO2 100%. CXR this morning showed interval development of bilateral perihilar and lower lung zone airspace opacity he was given Lasix 60mg total overnight. 02/25 Patient remains sedated and intubated with Diprivan and Fentanyl. Afebrile.On PC/AC with RR 12, IP:22, IT:1.10, PEEP:10, FIO2 70%. Afebrile. Renal function worse today with Cr: 1.90 from 1.72 UO: 1150ml in 24 hrs 02/26 No acute events overnight. Sedated with Fentanyl and Diprivan and intubated. Afebrile. His O2 requirements is less now on PC/AC with IP:22, IT: 1.1 with PEEP: 10 and FIO2 55%. Renal function improving with Cr: 1.42 today from 1.90. Tolerating tube feeds. 02/27 Patient remains sedated with Diprivan and Fentanyl infusion and intubated. Afebrile. 02/28: Remains sedated, orally intubated on mechanical ventilation. Being diuresed with Bumex. Tolerating tube feeds. 03/01: Remains sedated, orally intubated on mechanical ventilation. Being diabetes. Remains on PEEP of 10 and FiO2 60% 03/02 Patient remains sedated with Diprivan and Fentanyl and intubated. On PC/AC with PEEP: 10 and FIO2 80% overnight and sats 93-94%. Afebrile. 03/03: The patient remains on high respiratory requirements PEEP of 10, and FiO2 70%. 03/04: Tmax 99.9. Overnight the patient was noted to have desaturations the patient received a bolus of midazolam and fentanyl for ventilator dyssynchrony. The patient was redosed with Diamox with approximately 2.5 L diuresis in the last 12 hours. The patient continues on an FiO2 of 70% with PEEP of 10 to maintain an O2 sat of 90%. 03/05: Afebrile. Patient's FiO2 remains at 60% to maintain O2sat ranging in 92% . Future plans for tracheostomy discussed with when ventilator requirements are decreased. Patient currently is on a PEEP of 10. Patient receiving multiple doses of diuretics chest x-ray still showing increased vascular congestion. Cardiology following metalazone added to medication regimen per cardiology for diuresis. 03/06: Patient's O2 requirements were increased overnight to FiO2 of 90%. The patient's FiO2 has been decreased now currently to 70% O2 sat is 90% ABG is pending. The patient's diuresis effective, 1 kg weight loss in 24 hours. 03/07: The patient continues to have effective diuresis. The patient's O2 requirements currently FiO2 is 70% to maintain a sat of 90-91%. Discussion with Ms. London yesterday, she would like to discuss with palliative team goals of care. Palliative care consult initiated. 03/08: The patient was less responsive to diuretics today, positive weight balance last 24 hours. The patient was placed on a Lasix infusion, noted occasional PVCs on telemetry. Patient potassium repletion ongoing, schedule potassium PO intake increased to 50 mEq twice a day. Free water flushes placed on hold, was sodium level 145 will continue to monitor. Chest x-ray shows slight improvement. Continued management of ventilator settings ARDS protocol, maintaining PaO2 60 or greater and adjusting vent settings based on PaO2. Sedation vacation attempted today by POLICY AND PLANNING MANAGER, GCS 11T. Noted WBC elevation today ID consulted. 03/09: Today the patient was noted to have increasing FiO2 requirements with a PaO2 of 61. FiO2 was increased to 100%, PEEP was gradually increased to 12, then 14. The patient subsequently became hypotensive, likely due to increasing PEEP, but chest x-ray also obtained to rule out pneumothorax which was clear. The patient subsequently was laced on phenylephrine low-dose 20 mcgs which was eventually weaned off. The patient was placed on PEEP at 7 and FiO2 of 100%, sedation was weaned to lower dose. Palliative care also discussed with goals of care and the patient was made DNR. 03/10 noted creatinine elevation last night, Lasix discontinued. Dobutamine initiated per cardiology this morning. The patient continues to have high requirements on a PEEP of 8 and FiO2 of 100% his PaO2 49.2. PEEP has been increased plan to initiate Flolan. 03/11: Tmax 100.5. FRANK resolved with dobutamine infusion, heart rate 110. Microbiology report bacteremia gram-positive cocci and sputum. Patient currently on Diflucan. Will begin Linezolid in the setting of recent FRANK and oliguria, and await further recommendations from infectious disease proposal consultant. Respiratory status deteriorating. The patient was placed on Flolan last night PaO2 67. Patient remains on a PEEP of 10, unable to advance secondary to hypotension. 03/12 Patient remains sedated with Diprivan, Fentanyl and intubated. On Dobutamine 2.5 mics and Flolan. Remains On PC/AC with RR 12, IP:22, IT:1.20, PEEP;10 and FIo2 90%. Afebrile. 03/13 Patient is sedated with Diprivan and Fentanyl and intubated. On PC/AC with PEEP:12, FIO2 80%. Tmax 101.7 Remains on Dobutamine and Flolan. 03/14 Patient remains sedated and intubated. On PC/AC with PEEP:12 and FIO2 100% . T: 101.5 last night. On Flolan off Dobutamine. 03/15 No acute events overnight. Sedated with Diprivan and Fentanyl. On PC/AC with PEEP: 12, FIO2 down to 70%. Tmax 101.6. On Flolan nebs. 03/16 Patient remains sedated and intubated On PC/AC with decrease in FIO2 requirements down to 65% FIO2 with PEEP: 12. Tmax 101.4. On Heparin drip. Objective Vital Signs Date Time Temp Pulse Resp B/P Pulse Ox O2 Delivery O2 Flow Rate FiO2 03/16/17 10:00 95 03/16/17 08:21 90 65 03/16/17 04:00 98.4 28 106/57 Intake and Output 03/15/17 03/15/17 03/16/17 08:00 16:00 00:00 Intake Total 856 ml 1572 ml 1141 ml Output Total 750 ml 1400 ml 700 ml Balance 106 ml 172 ml 441 ml Result Diagram: 03/16/17 0432 03/16/17 0432 Other Results Laboratory Tests Test 03/15/17 03/15/17 03/16/17 15:11 22:29 04:32 Activated Partial 50.3 SEC 82.8 SEC 87.8 SEC Thromboplast Time White Blood Count 16.2 TH/MM3 Red Blood Count 4.46 MIL/MM3 Hemoglobin 13.3 GM/DL Hematocrit 41.9 % Mean Corpuscular Volume 93.9 FL Mean Corpuscular Hemoglobin 29.9 PG Mean Corpuscular Hemoglobin 31.8 % Concent Red Cell Distribution Width 15.8 % Platelet Count 156 TH/MM3 Mean Platelet Volume 10.6 FL Neutrophils (%) (Auto) 89.5 % Lymphocytes (%) (Auto) 2.6 % Monocytes (%) (Auto) 7.5 % Eosinophils (%) (Auto) 0.0 % Basophils (%) (Auto) 0.4 % Neutrophils # (Auto) 14.5 TH/MM3 Lymphocytes # (Auto) 0.4 TH/MM3 Monocytes # (Auto) 1.2 TH/MM3 Eosinophils # (Auto) 0.0 TH/MM3 Basophils # (Auto) 0.1 TH/MM3 CBC Comment DIFF FINAL Differential Comment Sodium Level 149 MEQ/L Potassium Level 4.0 MEQ/L Chloride Level 106 MEQ/L Carbon Dioxide Level 37.7 MEQ/L Anion Gap 5 MEQ/L Blood Urea Nitrogen 70 MG/DL Creatinine 0.96 MG/DL Estimat Glomerular Filtration 78 ML/MIN Rate Random Glucose 139 MG/DL Calcium Level 10.1 MG/DL Phosphorus Level 4.4 MG/DL Magnesium Level 3.0 MG/DL Imaging Last Impressions Upper Extremity Ultrasound 03/14/17 0000 Signed Impressions: Service Date/Time: Tuesday, March 14, 2017 18:49 - CONCLUSION: 1. Thrombus throughout the cephalic veins bilaterally. These are superficial venous structures. 2. Questionable minimal thrombus within the left subclavian vein. Garrick Hinton Jr., MD Chest X-Ray 03/14/17 0000 Signed Impressions: Service Date/Time: Tuesday, March 14, 2017 09:08 - CONCLUSION: 1. Interval improvement with less interstitial edema. 2. Persistent consolidative changes left base. Artur Bob MD FACR CT Angiography 03/02/17 1206 Signed Impressions: Service Date/Time: Thursday, March 02, 2017 13:46 - CONCLUSION: 1. No pulmonary embolus identified. 2. Small bilateral effusions with significant dependent atelectasis bilaterally. Riley Bob MD Lower Extremity Ultrasound 02/27/17 0000 Signed Impressions: Service Date/Time: Monday, February 27, 2017 08:31 - CONCLUSION: Normal examination. Nick Farrell MD Abdomen X-Ray 02/24/17 0000 Signed Impressions: Service Date/Time: Friday, February 24, 2017 10:43 - CONCLUSION: 1. Nasogastric tube just across the GE junction. 2. Minimal nonspecific bowel gas dilatation. Artur Bob MD FACR Objective Remarks GENERAL: Patient is 66 yo obese male intubated and sedated SKIN: Warm and dry. HEAD: Normocephalic. EYES: No scleral icterus. No injection or drainage. NECK: Supple, trachea midline. No JVD or lymphadenopathy. CARDIOVASCULAR:Tachycardic without murmurs, gallops, or rubs. RESPIRATORY: On mechanical ventilation, orally intubated, Breath sounds equal bilaterally. Few Coarse BS GASTROINTESTINAL: Abdomen soft, non-tender, nondistended. OGT, tube feedings infusing MUSCULOSKELETAL: 2+ bilateral edema in upper extremities. Neuro: Sedated, intubated Date of Removal: Mar 04, 2017 Line: Central Venous Catheter Side: Right A/P Assessment and Plan 1. Acute hypercapnic and hypoxemic respiratory failure. 2. COPD exacerbation. 3. Acute renal failure. 4. Hypernatremia 5. Obstructive sleep apnea and morbid obesity. 6. Ischemic dilated Cardiomyopathy. S/P AICD 03/2015 7. History of coronary artery disease. 8. Gastroesophageal reflux disease. 9. Hypertension. 10. Hyperlipidemia. 11 Pulm edema 12. Acute on chronic systolic and diastolic CHF 13. Pulmonary hypertension 14. Bacteremia Plan: Neuro: On Diprivan and Fentanyl infusion for sedation. Daily sedation vacation when appropriate. CV: Monitor HR and BP keep MAP>65mmHg On aspirin 325 milligrams p.o. daily and Plavix 75 mg p.o. daily. Prinivil 5mg daily 01/2017 Echo showed EF 40-45%, nl LV diastolic function, No RWMA Cardiology following-Dr. Cole. Pulm: On PC/AC RR 12, IP:22, IT:1.2 PEEP: 12, FIO2: 65%, decrease FIO2 as kristie. Continue with vent support and maintain sats above 92%. Bronchodilators every 4 hours, Solu-Medrol 40 mg IV BID. Pulm-Dr. Lashell Padron following CTA chest 03/02 showed no PE, small pleural effusions Continue with Flolan nebs 8ml/hr(30,000 ng/ml) : Monitor renal function Is and Os and avoid nephrotoxins. Electrolytes replacement per protocol. Lasix 40mg daily Increase Free water 250ml Q6 GI: On Protonix 40 milligrams IV daily for GI prophylaxis. On TF- Glucerna 1.5 @45ml/hr, no residuals Senna, Colace for bowel regimen, Lactulose 15mg BID, 02/24 KUB abdomen: Minimal non-specific bowel gas dilatation ID:Continue with abx per ID(Vancomycin, Zosyn) monitor for signs of infections ( Fever, WBC) 03/14: BC: NGTD 03/14: Normal resp tiffany, urine cx: No growth 03/09 Repeat Bld cultures-staph Epi, coag negative staph- likely contaminant 03/09 Repeat sputum culture-staph aureus Heme: Monitor CBC. Endo: SSI with Accu-Chek q. 6-hour for glycemic control. GI prophylaxis with Protonix 40 mg daily and DVT prophylaxis with SCDs, heparin drip. Doppler US UE: 03/14-Thrombus throughout the cephalic veins bilaterally. ? minimal thrombus within the left subclavian vein. Doppler US LE No DVT on 02/27 Dispo: Discussed patient with POLICY AND PLANNING MANAGER. Palliative care is following. CCT 30 mins Georgia Ocampo MD Mar 16, 2017 11:05
[2017-03-16] MEDS: EPOPROSTENOL NEB SOLUTION 50 NG/KG/MIN 100 ML NEB SCH ×4 (11:27→20:58)
[2017-03-16 13:11] LABS: APTT (PATIENT) 61.8 SEC (24.3-30.1)
[2017-03-16] MEDS: fentaNYL DRIP 250 ML IV SCH (13:27)
--- NOTE | 2017-03-16 15:39 | HHI.IDPN ---
Subjective Subjective Remarks Notes reviewed Temps better oevrnight On the vent, FiO2 at 0.65 Good UO No new (+) BC BC with Staph epidermidis, different susceptibility results Sputum with MSSA WBC higher BP ok, not on pressors US DAXA has clots in cephalic vein, and possible minimal clot in LSC Antibiotics Vancomycin Zosyn Lines PIV Past Medical History Reviewed Allergies: Coded Allergies: No Known Allergies (Verified , 02/23/17) Objective . Vital Signs Date Time Temp Pulse Resp B/P Pulse Ox O2 Delivery O2 Flow Rate FiO2 03/16/17 12:35 90 65 03/16/17 12:00 65 03/16/17 12:00 92 03/16/17 10:00 95 03/16/17 08:21 90 65 03/16/17 08:00 100 03/16/17 08:00 65 03/16/17 06:00 96 03/16/17 04:12 100 65 03/16/17 04:00 98.4 104 28 106/57 96 03/16/17 04:00 104 03/16/17 04:00 65 03/16/17 02:00 106 03/16/17 00:59 91 65 03/16/17 00:00 108 03/16/17 00:00 65 03/16/17 00:00 98.9 108 15 123/64 92 03/15/17 22:00 106 03/15/17 20:34 97 65 03/15/17 20:00 65 03/15/17 20:00 98.3 91 15 96/54 98 03/15/17 20:00 91 03/15/17 18:00 104 03/15/17 17:10 95 65 03/15/17 16:00 101.4 105 12 123/71 90 03/15/17 16:00 105 03/15/17 16:00 65 03/15/17 03/15/17 03/16/17 15:00 23:00 07:00 Intake Total 1572 ml 1141 ml 1339 ml Output Total 1400 ml 700 ml 600 ml Balance 172 ml 441 ml 739 ml IV Total 1113 ml 743 ml 965 ml Tube Feeding 459 ml 398 ml 374 ml Output Urine Total 1400 ml 700 ml 600 ml Stool Total 0 ml # Bowel Movements 0 1 1 . Laboratory Tests Test 03/15/17 03/15/17 03/16/17 05:03 08:45 04:32 White Blood Count 13.6 TH/MM3 13.7 TH/MM3 16.2 TH/MM3 Red Blood Count 4.55 MIL/MM3 4.52 MIL/MM3 4.46 MIL/MM3 Hemoglobin 13.6 GM/DL 13.5 GM/DL 13.3 GM/DL Hematocrit 42.5 % 42.0 % 41.9 % Mean Corpuscular Volume 93.5 FL 92.8 FL 93.9 FL Mean Corpuscular Hemoglobin 29.8 PG 29.9 PG 29.9 PG Mean Corpuscular Hemoglobin 31.9 % 32.3 % 31.8 % Concent Red Cell Distribution Width 16.6 % 16.1 % 15.8 % Platelet Count 145 TH/MM3 145 TH/MM3 156 TH/MM3 Mean Platelet Volume 10.7 FL 10.3 FL 10.6 FL Neutrophils (%) (Auto) 93.8 % 89.5 % Lymphocytes (%) (Auto) 1.8 % 2.6 % Monocytes (%) (Auto) 4.1 % 7.5 % Eosinophils (%) (Auto) 0.1 % 0.0 % Basophils (%) (Auto) 0.2 % 0.4 % Neutrophils # (Auto) 12.8 TH/MM3 14.5 TH/MM3 Lymphocytes # (Auto) 0.2 TH/MM3 0.4 TH/MM3 Monocytes # (Auto) 0.6 TH/MM3 1.2 TH/MM3 Eosinophils # (Auto) 0.0 TH/MM3 0.0 TH/MM3 Basophils # (Auto) 0.0 TH/MM3 0.1 TH/MM3 CBC Comment DIFF FINAL DIFF FINAL Differential Comment Laboratory Tests Test 03/15/17 03/16/17 05:03 04:32 Sodium Level 147 MEQ/L 149 MEQ/L Potassium Level 4.3 MEQ/L 4.0 MEQ/L Chloride Level 104 MEQ/L 106 MEQ/L Carbon Dioxide Level 36.5 MEQ/L 37.7 MEQ/L Anion Gap 7 MEQ/L 5 MEQ/L Blood Urea Nitrogen 75 MG/DL 70 MG/DL Creatinine 1.02 MG/DL 0.96 MG/DL Estimat Glomerular Filtration 73 ML/MIN 78 ML/MIN Rate Random Glucose 123 MG/DL 139 MG/DL Calcium Level 9.9 MG/DL 10.1 MG/DL Phosphorus Level 4.4 MG/DL Magnesium Level 3.0 MG/DL Microbiology Date/Time Procedure Status Source Growth 03/14/17 08:48 Aerobic Blood Culture - Preliminary Resulted Blood Peripheral NO GROWTH IN 2 DAYS 03/14/17 08:48 Anaerobic Blood Culture - Preliminary Resulted Blood Peripheral NO GROWTH IN 2 DAYS 03/14/17 08:53 Aerobic Blood Culture - Preliminary Resulted Blood Peripheral NO GROWTH IN 2 DAYS 03/14/17 08:53 Anaerobic Blood Culture - Preliminary Resulted Blood Peripheral NO GROWTH IN 2 DAYS 03/14/17 11:30 Gram Stain - Final Complete Sputum Endotracheal 03/14/17 11:30 Sputum Culture - Final Complete Sputum Endotracheal MODERATE GROWTH NORMAL RESPIRATORY DANIEL 03/14/17 11:30 Urine Culture - Final Complete Urine Catheterized Urine NO GROWTH IN 48 HOURS. Imaging Chest X-Ray 03/11/17 0600 Signed Impressions: Service Date/Time: Saturday, March 11, 2017 04:03 - CONCLUSION: 1. Bilateral lower lobe atelectasis versus pneumonia. There has been no significant change when compared to the prior exam. Lavell Maciel MD CT Angiography 03/02/17 1206 Signed Impressions: Service Date/Time: Thursday, March 02, 2017 13:46 - CONCLUSION: 1. No pulmonary embolus identified. 2. Small bilateral effusions with significant dependent atelectasis bilaterally. Riley Bob MD Lower Extremity Ultrasound 02/27/17 0000 Signed Impressions: Service Date/Time: Monday, February 27, 2017 08:31 - CONCLUSION: Normal examination. Nick Farrell MD Abdomen X-Ray 02/24/17 0000 Signed Impressions: Service Date/Time: Friday, February 24, 2017 10:43 - CONCLUSION: 1. Nasogastric tube just across the GE junction. 2. Minimal nonspecific bowel gas dilatation. Artur Bob MD FACR Physical Exam GENERAL: sedated, on the vent, not in respiratory distress. SKIN: Warm and moist. No generalized rash. HEENT: [place] conjunctivae. No scleral icterus. Endotracheal tube is in the mouth. NECK: Supple, nontender, no meningeal signs. CARDIOVASCULAR: Regular rate and rhythm without murmurs, gallops, or rubs. His monitor shows atrial flutter RESPIRATORY: Coarse breath sounds bilaterally. No wheezes, rales, or rhonchi. Decreased at the bases. GASTROINTESTINAL: Abdomen soft, obese, nondistended, not tender. Bowel sounds are present. No hepato-splenomegaly, or palpable masses. No guarding. MUSCULOSKELETAL: Lower extremities without clubbing, cyanosis, or edema. His upper extremities are edematous. NEUROLOGICAL: Sedated. No Babinski PSYCH: Unable to assess LINE: PIV with no evidence of infection : [facility] catheter in place, with small amount of sediment Assessment & Plan Remarks IMPRESSION Leukocytosis, etiology? - likely reactive, ?due to his pulmonary status, has had increased O2 requirement - ?New infection, he has not been febrile - CXR looks better - ? - has no line - no diarrhea Fevers - ?partly due to vein clots; cephalic are superficial veins Respiratory failure - has known ischemic cardiomyopathy BC with Coag Neg STaph, no final ID yet - ?significance Known COPD Obesity RECOMMENDATION Follow CBC Follow C/S Continue IV Vanco Monitor progress Continue Zosyn Follow Heather Hammond MD Mar 16, 2017 15:39
[2017-03-16] MEDS: ACETAMINOPHEN 325 MG TAB PO PRN ×2 (17:33→18:33)
[2017-03-16] MEDS: ATORVASTATIN 40 MG TAB PO SCH (20:59)
[2017-03-16 21:01] LABS: C. DIFF EPI 027 PRESUMPTIVE NEGATIVE (NEGATIVE); C. DIFF TOXIN PCR NEGATIVE (NEGATIVE)
[2017-03-16] MEDS ORDERED: PHARMACY ORDERED LAB ONE (21:45)
[2017-03-17] VITALS (18 sets, daily range): BP systolic 87–126; BP diastolic 57–78; PULSE 104–125; RESP 18–24; TEMP 99.1–102.8; O2SAT 90–99
[2017-03-17] MEDS: VANCOMYCIN INJ 1,700 MG in SODIUM CHLORID 0.9% 500 ML INJ 500 ML IV SCH (01:07)
[2017-03-17] MEDS: CHLORHEXIDINE 0.12% (ORAL KIT) 15 ML CUP MT SCH ×3 (01:53→20:40)
[2017-03-17] MEDS: PIPERACIL-TAZO 4.5 GM PREMIX 100 ML IV SCH ×4 (02:52→20:37)
[2017-03-17] MEDS: PROPOFOL 1000 MG/100 ML INJ 100 ML IV SCH ×6 (02:52→23:20)
[2017-03-17] MEDS: EPOPROSTENOL NEB SOLUTION 50 NG/KG/MIN 100 ML NEB SCH ×6 (04:00→20:00)
[2017-03-17] MEDS: CHLORHEXIDINE GLUCONATE 2 % 1 PACK (2 CLOTHS) TOP SCH (04:00)
[2017-03-17] MEDS: INSULIN NovoLIN REGULAR SUPPLEMENTAL SCALE SQ SCH ×4 (05:00→23:00)
[2017-03-17 05:12] LABS: AUTOMATED NEUTROPHIL # 11.8 TH/MM3 (1.8-7.7); BASOPHIL # 0.1 TH/MM3 (0-0.2); BASOPHIL % 0.6 % (0.0-2.0); EOSINOPHIL # 0.1 TH/MM3 (0-0.4); EOSINOPHIL % 0.9 % (0.0-4.0); HEMATOCRIT 40.8 % (39.0-51.0); LYMPH % 2.7 % (9.0-44.0); LYMPHOCYTE # 0.4 TH/MM3 (1.0-4.8); MEAN CELL VOLUME 94.1 FL (80.0-100.0); MEAN CORPUSCULAR HEMOGLOBIN 29.2 PG (27.0-34.0); MEAN CORPUSCULAR HGB CONC 31.1 % (32.0-36.0); MONO % 6.1 % (0.0-8.0); NEUT % 89.7 % (16.0-70.0); PLATELET COUNT 176 TH/MM3 (150-450); RED BLOOD COUNT 4.34 MIL/MM3 (4.50-5.90); RED CELL DISTRIBUTION WIDTH 16.2 % (11.6-17.2); WHITE BLOOD COUNT 13.1 TH/MM3 (4.0-11.0)
[2017-03-17 05:20] LABS: HEMO FLAGS AUTO DIFF
[2017-03-17 05:33] LABS: BICARBONATE 35.9 MEQ/L (21.0-32.0); POTASSIUM 4.2 MEQ/L (3.5-5.1)
[2017-03-17] MEDS: FREE WATER G-TUBE SCH ×5 (05:50→23:20)
[2017-03-17] MEDS: ACETAMINOPHEN 325 MG TAB PO PRN ×2 (06:13→13:24)
[2017-03-17 07:38] LABS: BANDS 4 % (0-6); MYELOCYTES 4 % (0-0); NEUTROPHIL # MANUAL DIFF 12.1 TH/MM3 (1.8-7.7); PLATELET ESTIMATE SMEAR NORMAL (NORMAL); PLATELET MORPHOLOGY NORMAL (NORMAL); POLYS (SEG NEUTROPHILS) 84 % (16-70); WBC DIFF SAMPLE 100
[2017-03-17 07:39] LABS: SCAN/DIFF FINAL DIFF MANUAL
--- NOTE | 2017-03-17 09:18 | HHI.CCPN ---
Subjective Remarks/Hospital Course The patient is a 66-year-old male with past medical history of COPD, cardiomyopathy, hypertension, gastroesophageal reflux disease, hyperlipidemia and coronary artery disease. The patient presented to [facility] ED with a 2-week history of progressive worsening shortness of breath. On arrival to the ED he was initially placed on a non-rebreather mask and ABG was performed which showed acute hypercapnic respiratory failure with a pH of 7.14, CO2 121, pAO2 141, bicarb 40, sats 93%. His laboratory data significant for hyperkalemia with potassium level 6.0 and acute renal failure with a BUN of 43 and creatinine 2.07 respectively. The chest x-ray showed cardiomegaly and findings of vascular congestion without overt failure. In the ED the patient was intubated with etomidate and rocuronium and placed on full mechanical ventilation. In addition, he is scheduled to receive 10 units IV regular insulin, 1 amp of D50 and calcium gluconate for hyperkalemia. He received cefepime, azithromycin, Solu-Medrol 125 milligrams IV push and bronchodilator treatment. When seen the patient is on Diprivan infusion for sedation and full mechanical ventilation. Per the patient is not on any oxygen at home and he occasionally smokes cigarettes. 02/24 Patient is intubated and sedated with Diprivan and Fentanyl. Switched to PC/ AC with RR 12, IP:24, IT:1.06, PEEP: 8 and FIO2 100%. CXR this morning showed interval development of bilateral perihilar and lower lung zone airspace opacity he was given Lasix 60mg total overnight. 02/25 Patient remains sedated and intubated with Diprivan and Fentanyl. Afebrile.On PC/AC with RR 12, IP:22, IT:1.10, PEEP:10, FIO2 70%. Afebrile. Renal function worse today with Cr: 1.90 from 1.72 UO: 1150ml in 24 hrs 02/26 No acute events overnight. Sedated with Fentanyl and Diprivan and intubated. Afebrile. His O2 requirements is less now on PC/AC with IP:22, IT: 1.1 with PEEP: 10 and FIO2 55%. Renal function improving with Cr: 1.42 today from 1.90. Tolerating tube feeds. 02/27 Patient remains sedated with Diprivan and Fentanyl infusion and intubated. Afebrile. 02/28: Remains sedated, orally intubated on mechanical ventilation. Being diuresed with Bumex. Tolerating tube feeds. 03/01: Remains sedated, orally intubated on mechanical ventilation. Being diabetes. Remains on PEEP of 10 and FiO2 60% 03/02 Patient remains sedated with Diprivan and Fentanyl and intubated. On PC/AC with PEEP: 10 and FIO2 80% overnight and sats 93-94%. Afebrile. 03/03: The patient remains on high respiratory requirements PEEP of 10, and FiO2 70%. 03/04: Tmax 99.9. Overnight the patient was noted to have desaturations the patient received a bolus of midazolam and fentanyl for ventilator dyssynchrony. The patient was redosed with Diamox with approximately 2.5 L diuresis in the last 12 hours. The patient continues on an FiO2 of 70% with PEEP of 10 to maintain an O2 sat of 90%. 03/05: Afebrile. Patient's FiO2 remains at 60% to maintain O2sat ranging in 92% . Future plans for tracheostomy discussed with when ventilator requirements are decreased. Patient currently is on a PEEP of 10. Patient receiving multiple doses of diuretics chest x-ray still showing increased vascular congestion. Cardiology following metalazone added to medication regimen per cardiology for diuresis. 03/06: Patient's O2 requirements were increased overnight to FiO2 of 90%. The patient's FiO2 has been decreased now currently to 70% O2 sat is 90% ABG is pending. The patient's diuresis effective, 1 kg weight loss in 24 hours. 03/07: The patient continues to have effective diuresis. The patient's O2 requirements currently FiO2 is 70% to maintain a sat of 90-91%. Discussion with Ms. London yesterday, she would like to discuss with palliative team goals of care. Palliative care consult initiated. 03/08: The patient was less responsive to diuretics today, positive weight balance last 24 hours. The patient was placed on a Lasix infusion, noted occasional PVCs on telemetry. Patient potassium repletion ongoing, schedule potassium PO intake increased to 50 mEq twice a day. Free water flushes placed on hold, was sodium level 145 will continue to monitor. Chest x-ray shows slight improvement. Continued management of ventilator settings ARDS protocol, maintaining PaO2 60 or greater and adjusting vent settings based on PaO2. Sedation vacation attempted today by FIRE SAFETY INSPECTOR, GCS 11T. Noted WBC elevation today ID consulted. 03/09: Today the patient was noted to have increasing FiO2 requirements with a PaO2 of 61. FiO2 was increased to 100%, PEEP was gradually increased to 12, then 14. The patient subsequently became hypotensive, likely due to increasing PEEP, but chest x-ray also obtained to rule out pneumothorax which was clear. The patient subsequently was laced on phenylephrine low-dose 20 mcgs which was eventually weaned off. The patient was placed on PEEP at 7 and FiO2 of 100%, sedation was weaned to lower dose. Palliative care also discussed with goals of care and the patient was made DNR. 03/10 noted creatinine elevation last night, Lasix discontinued. Dobutamine initiated per cardiology this morning. The patient continues to have high requirements on a PEEP of 8 and FiO2 of 100% his PaO2 49.2. PEEP has been increased plan to initiate Flolan. 03/11: Tmax 100.5. FRANK resolved with dobutamine infusion, heart rate 110. Microbiology report bacteremia gram-positive cocci and sputum. Patient currently on Diflucan. Will begin Linezolid in the setting of recent FRANK and oliguria, and await further recommendations from infectious disease student union consultant. Respiratory status deteriorating. The patient was placed on Flolan last night PaO2 67. Patient remains on a PEEP of 10, unable to advance secondary to hypotension. 03/12 Patient remains sedated with Diprivan, Fentanyl and intubated. On Dobutamine 2.5 mics and Flolan. Remains On PC/AC with RR 12, IP:22, IT:1.20, PEEP;10 and FIo2 90%. Afebrile. 03/13 Patient is sedated with Diprivan and Fentanyl and intubated. On PC/AC with PEEP:12, FIO2 80%. Tmax 101.7 Remains on Dobutamine and Flolan. 03/14 Patient remains sedated and intubated. On PC/AC with PEEP:12 and FIO2 100% . T: 101.5 last night. On Flolan off Dobutamine. 03/15 No acute events overnight. Sedated with Diprivan and Fentanyl. On PC/AC with PEEP: 12, FIO2 down to 70%. Tmax 101.6. On Flolan nebs. 03/16 Patient remains sedated and intubated On PC/AC with decrease in FIO2 requirements down to 65% FIO2 with PEEP: 12. Tmax 101.4. On Heparin drip. 03/17 Patient remains sedated and intubated. T: 99.7, heparin drip turned off as patient had bloody secretions with suctioning and Hemoccult was positive. Objective Vital Signs Date Time Temp Pulse Resp B/P Pulse Ox O2 Delivery O2 Flow Rate FiO2 03/17/17 06:00 104 03/17/17 04:15 92 70 03/17/17 04:00 99.7 20 105/57 Intake and Output 03/16/17 03/16/17 03/17/17 08:00 16:00 00:00 Intake Total 1339 ml 1062 ml 2498 ml Output Total 600 ml 900 ml 1280 ml Balance 739 ml 162 ml 1218 ml Result Diagram: 03/17/17 0444 03/17/17 0444 Other Results Laboratory Tests Test 03/16/17 03/16/17 03/16/17 03/17/17 12:37 18:00 22:49 04:44 Activated Partial 61.8 SEC Thromboplast Time Stool C. difficile Toxin (PCR) NEGATIVE Stl C. difficile Toxin PRESUMPTIVE Epiderm 027 NEGATIVE Vancomycin Level Trough 22.6 MCG/ML White Blood Count 13.1 TH/MM3 Red Blood Count 4.34 MIL/MM3 Hemoglobin 12.7 GM/DL Hematocrit 40.8 % Mean Corpuscular Volume 94.1 FL Mean Corpuscular Hemoglobin 29.2 PG Mean Corpuscular Hemoglobin 31.1 % Concent Red Cell Distribution Width 16.2 % Platelet Count 176 TH/MM3 Mean Platelet Volume 10.7 FL Neutrophils (%) (Auto) 89.7 % Lymphocytes (%) (Auto) 2.7 % Monocytes (%) (Auto) 6.1 % Eosinophils (%) (Auto) 0.9 % Basophils (%) (Auto) 0.6 % Neutrophils # (Auto) 11.8 TH/MM3 Lymphocytes # (Auto) 0.4 TH/MM3 Monocytes # (Auto) 0.8 TH/MM3 Eosinophils # (Auto) 0.1 TH/MM3 Basophils # (Auto) 0.1 TH/MM3 CBC Comment AUTO DIFF Differential Total Cells 100 Counted Neutrophils % (Manual) 84 % Band Neutrophils % 4 % Lymphocytes % 3 % Monocytes % 5 % Neutrophils # (Manual) 12.1 TH/MM3 Myelocytes 4 % Differential Comment FINAL DIFF MANUAL Platelet Estimate NORMAL Platelet Morphology Comment NORMAL Sodium Level 149 MEQ/L Potassium Level 4.2 MEQ/L Chloride Level 109 MEQ/L Carbon Dioxide Level 35.9 MEQ/L Anion Gap 4 MEQ/L Blood Urea Nitrogen 66 MG/DL Creatinine 0.92 MG/DL Estimat Glomerular Filtration 82 ML/MIN Rate Random Glucose 123 MG/DL Calcium Level 9.8 MG/DL Imaging Last Impressions Upper Extremity Ultrasound 03/14/17 0000 Signed Impressions: Service Date/Time: Tuesday, March 14, 2017 18:49 - CONCLUSION: 1. Thrombus throughout the cephalic veins bilaterally. These are superficial venous structures. 2. Questionable minimal thrombus within the left subclavian vein. Garrick Hinton Jr., MD Chest X-Ray 03/14/17 0000 Signed Impressions: Service Date/Time: Tuesday, March 14, 2017 09:08 - CONCLUSION: 1. Interval improvement with less interstitial edema. 2. Persistent consolidative changes left base. Artur Bob MD FACR CT Angiography 03/02/17 1206 Signed Impressions: Service Date/Time: Thursday, March 02, 2017 13:46 - CONCLUSION: 1. No pulmonary embolus identified. 2. Small bilateral effusions with significant dependent atelectasis bilaterally. Riley Bob MD Lower Extremity Ultrasound 02/27/17 0000 Signed Impressions: Service Date/Time: Monday, February 27, 2017 08:31 - CONCLUSION: Normal examination. Nick Farrell MD Abdomen X-Ray 02/24/17 0000 Signed Impressions: Service Date/Time: Friday, February 24, 2017 10:43 - CONCLUSION: 1. Nasogastric tube just across the GE junction. 2. Minimal nonspecific bowel gas dilatation. Artur Bob MD FACR Objective Remarks GENERAL: Patient is 66 yo obese male intubated and sedated SKIN: Warm and dry. HEAD: Normocephalic. EYES: No scleral icterus. No injection or drainage. NECK: Supple, trachea midline. No JVD or lymphadenopathy. CARDIOVASCULAR:Tachycardic without murmurs, gallops, or rubs. RESPIRATORY: On mechanical ventilation, orally intubated, Breath sounds equal bilaterally. Few Coarse BS GASTROINTESTINAL: Abdomen soft, non-tender, nondistended. OGT, tube feedings infusing MUSCULOSKELETAL: 2+ bilateral edema in upper extremities. Neuro: Sedated, intubated Date of Removal: Mar 04, 2017 Line: Central Venous Catheter Side: Right A/P Assessment and Plan 1. Acute hypercapnic and hypoxemic respiratory failure. 2. COPD exacerbation. 3. Acute renal failure. 4. Hypernatremia 5. Obstructive sleep apnea and morbid obesity. 6. Ischemic dilated Cardiomyopathy. S/P AICD 03/2015 7. History of coronary artery disease. 8. Gastroesophageal reflux disease. 9. Hypertension. 10. Hyperlipidemia. 11 Pulm edema 12. Acute on chronic systolic and diastolic CHF 13. Pulmonary hypertension 14. Bacteremia Plan: Neuro: On Diprivan and Fentanyl infusion for sedation. Daily sedation vacation when appropriate. CV: Monitor HR and BP keep MAP>65mmHg On aspirin 325 milligrams p.o. daily and Plavix 75 mg p.o. daily. Prinivil 5mg daily 01/2017 Echo showed EF 40-45%, nl LV diastolic function, No RWMA Cardiology following-Dr. Cole. Pulm: On PC/AC RR 12, IP:22, IT:1.2 PEEP: 12, FIO2: 70 %, decrease FIO2 as kristie. Continue with vent support and maintain sats above 92%. Bronchodilators every 4 hours, Solu-Medrol 40 mg IV BID. Pulm-Dr. Lashell Padron following CTA chest 03/02 showed no PE, small pleural effusions Continue with Flolan nebs 8ml/hr(30,000 ng/ml) : Monitor renal function Is and Os and avoid nephrotoxins. Electrolytes replacement per protocol. Lasix 40mg daily On Free water 250ml Q6 GI: On Protonix 40 milligrams IV daily for GI prophylaxis. On TF- Glucerna 1.5 @45ml/hr, no residuals Senna, Colace for bowel regimen, Lactulose 15mg BID, 02/24 KUB abdomen: Minimal non-specific bowel gas dilatation Will consult GI for anemia and positive Hemoccult.. ID:Continue with abx per ID(Vancomycin, Zosyn) monitor for signs of infections ( Fever, WBC) 03/14: BC: NGTD 03/14: Normal resp tiffany, urine cx: No growth 03/09 Repeat Bld cultures-staph Epi, coag negative staph- likely contaminant 03/09 Repeat sputum culture-staph aureus Heme: Monitor CBC. Endo: SSI with Accu-Chek q. 6-hour for glycemic control. GI prophylaxis with Protonix 40 mg daily and DVT prophylaxis with SCDs, hold heparin drip. Doppler US UE: 03/14-Thrombus throughout the cephalic veins bilaterally. ? minimal thrombus within the left subclavian vein. Heparin drip turned off as patient had bloody secretions with suctioning and positive Hemoccult. Doppler US LE No DVT on 02/27 Dispo: Discussed patient with FIRE SAFETY INSPECTOR. Palliative care is following. CCT 30 mins Georgia Ocampo MD Mar 17, 2017 09:18
--- NOTE | 2017-03-17 09:20 | HHI.IDPN ---
Subjective Subjective Remarks Notes reviewed Temps 99+ On the vent, FiO2 at 0.7 Good UO No new (+) BC BC with Staph epidermidis, different susceptibility results Sputum with MSSA WBC higher BP ok, not on pressors US DAXA has clots in cephalic vein, and possible minimal clot in LSC Antibiotics Vancomycin Zosyn Lines PIV Past Medical History Reviewed Allergies: Coded Allergies: No Known Allergies (Verified , 02/23/17) Objective . Vital Signs Date Time Temp Pulse Resp B/P Pulse Ox O2 Delivery O2 Flow Rate FiO2 03/17/17 06:00 104 03/17/17 04:15 92 70 03/17/17 04:00 60 03/17/17 04:00 99.7 119 20 105/57 92 03/17/17 04:00 114 03/17/17 02:00 119 03/17/17 00:58 99 60 03/17/17 00:00 99.6 119 24 103/74 90 03/17/17 00:00 119 03/17/17 00:00 60 03/16/17 22:00 122 03/16/17 20:51 94 60 03/16/17 20:00 124 03/16/17 20:00 99.5 124 21 105/62 92 03/16/17 20:00 60 03/16/17 18:00 90 03/16/17 16:20 94 60 03/16/17 16:00 91 03/16/17 16:00 65 03/16/17 14:00 88 03/16/17 12:35 90 65 03/16/17 12:00 65 03/16/17 12:00 92 03/16/17 10:00 95 03/16/17 03/16/17 03/17/17 15:00 23:00 07:00 Intake Total 1062 ml 2498 ml 1508 ml Output Total 900 ml 1280 ml 950 ml Balance 162 ml 1218 ml 558 ml IV Total 547 ml 1750 ml 1163 ml Tube Feeding 515 ml 548 ml 345 ml Other 200 ml Output Urine Total 900 ml 800 ml 650 ml Stool Total 400 ml 300 ml Gastric Drainage Total 80 ml # Bowel Movements 1 . Laboratory Tests Test 03/16/17 03/17/17 04:32 04:44 White Blood Count 16.2 TH/MM3 13.1 TH/MM3 Red Blood Count 4.46 MIL/MM3 4.34 MIL/MM3 Hemoglobin 13.3 GM/DL 12.7 GM/DL Hematocrit 41.9 % 40.8 % Mean Corpuscular Volume 93.9 FL 94.1 FL Mean Corpuscular Hemoglobin 29.9 PG 29.2 PG Mean Corpuscular Hemoglobin 31.8 % 31.1 % Concent Red Cell Distribution Width 15.8 % 16.2 % Platelet Count 156 TH/MM3 176 TH/MM3 Mean Platelet Volume 10.6 FL 10.7 FL Neutrophils (%) (Auto) 89.5 % 89.7 % Lymphocytes (%) (Auto) 2.6 % 2.7 % Monocytes (%) (Auto) 7.5 % 6.1 % Eosinophils (%) (Auto) 0.0 % 0.9 % Basophils (%) (Auto) 0.4 % 0.6 % Neutrophils # (Auto) 14.5 TH/MM3 11.8 TH/MM3 Lymphocytes # (Auto) 0.4 TH/MM3 0.4 TH/MM3 Monocytes # (Auto) 1.2 TH/MM3 0.8 TH/MM3 Eosinophils # (Auto) 0.0 TH/MM3 0.1 TH/MM3 Basophils # (Auto) 0.1 TH/MM3 0.1 TH/MM3 CBC Comment DIFF FINAL AUTO DIFF Differential Comment FINAL DIFF MANUAL Differential Total Cells 100 Counted Neutrophils % (Manual) 84 % Band Neutrophils % 4 % Lymphocytes % 3 % Monocytes % 5 % Neutrophils # (Manual) 12.1 TH/MM3 Myelocytes 4 % Platelet Estimate NORMAL Platelet Morphology Comment NORMAL Laboratory Tests Test 03/16/17 03/17/17 04:32 04:44 Sodium Level 149 MEQ/L 149 MEQ/L Potassium Level 4.0 MEQ/L 4.2 MEQ/L Chloride Level 106 MEQ/L 109 MEQ/L Carbon Dioxide Level 37.7 MEQ/L 35.9 MEQ/L Anion Gap 5 MEQ/L 4 MEQ/L Blood Urea Nitrogen 70 MG/DL 66 MG/DL Creatinine 0.96 MG/DL 0.92 MG/DL Estimat Glomerular Filtration 78 ML/MIN 82 ML/MIN Rate Random Glucose 139 MG/DL 123 MG/DL Calcium Level 10.1 MG/DL 9.8 MG/DL Phosphorus Level 4.4 MG/DL Magnesium Level 3.0 MG/DL Microbiology Date/Time Procedure Status Source Growth 03/14/17 11:30 Gram Stain - Final Complete Sputum Endotracheal 03/14/17 11:30 Sputum Culture - Final Complete Sputum Endotracheal MODERATE GROWTH NORMAL RESPIRATORY DANIEL 03/14/17 11:30 Urine Culture - Final Complete Urine Catheterized Urine NO GROWTH IN 48 HOURS. 03/16/17 18:01 Stool Occult Blood (GINGER) - Final Complete Stool Stool HEMOCCULT POSITIVE Imaging Chest X-Ray 03/11/17 0600 Signed Impressions: Service Date/Time: Saturday, March 11, 2017 04:03 - CONCLUSION: 1. Bilateral lower lobe atelectasis versus pneumonia. There has been no significant change when compared to the prior exam. Lavell Maciel MD CT Angiography 03/02/17 1206 Signed Impressions: Service Date/Time: Thursday, March 02, 2017 13:46 - CONCLUSION: 1. No pulmonary embolus identified. 2. Small bilateral effusions with significant dependent atelectasis bilaterally. Riley Bob MD Lower Extremity Ultrasound 02/27/17 0000 Signed Impressions: Service Date/Time: Monday, February 27, 2017 08:31 - CONCLUSION: Normal examination. Nick Farrell MD Abdomen X-Ray 02/24/17 0000 Signed Impressions: Service Date/Time: Friday, February 24, 2017 10:43 - CONCLUSION: 1. Nasogastric tube just across the GE junction. 2. Minimal nonspecific bowel gas dilatation. Artur Bob MD FACR Physical Exam GENERAL: sedated, on the vent, not in respiratory distress. SKIN: Warm and moist. No generalized rash. HEENT: [place] conjunctivae. No scleral icterus. Endotracheal tube is in the mouth. NECK: Supple, nontender, no meningeal signs. CARDIOVASCULAR: Regular rate and rhythm without murmurs, gallops, or rubs. His monitor shows atrial flutter RESPIRATORY: Has kade wheezing GASTROINTESTINAL: Abdomen soft, obese, nondistended. Bowel sounds are present. MUSCULOSKELETAL: Lower extremities without clubbing, cyanosis, or edema. His upper extremities are edematous. NEUROLOGICAL: Sedated. No Babinski PSYCH: Unable to assess LINE: PIV with no evidence of infection : [facility] catheter in place, with small amount of sediment Assessment & Plan Remarks IMPRESSION Leukocytosis, etiology? - better - likely reactive, ?due to his pulmonary status, has had increased O2 requirement - ?New infection, he has not been febrile - CXR looks better - ? - has no line - no diarrhea Fevers - ?partly due to vein clots; cephalic are superficial veins Respiratory failure - has known ischemic cardiomyopathy BC with Coag Neg STaph, no final ID yet - ?significance Known COPD Obesity RECOMMENDATION Follow CBC Follow C/S Continue IV Vanco Continue Zosyn Follow temps Monitor progress Heather Young MD Mar 17, 2017 09:20
[2017-03-17] MEDS: methylPREDNISolone SOD SUCC 40 MG/1 ML VIAL IV PUSH SCH ×2 (10:04→20:41)
[2017-03-17] MEDS: CLOPIDOGREL 75 MG TAB PO SCH (10:04)
[2017-03-17] MEDS: FUROSEMIDE 40 MG/4 ML VIAL IV PUSH SCH (10:04)
[2017-03-17] MEDS: DOCUSATE SODIUM 100 MG/10 ML UDC PO SCH ×2 (10:04→20:42)
[2017-03-17] MEDS: PANTOPRAZOLE SODIUM 40 MG VIAL IV SCH (10:04)
[2017-03-17] MEDS: LISINOPRIL 5 MG TAB PO SCH (10:04)
[2017-03-17] MEDS: SENNOSIDES SYRUP 8.8 MG/5 ML CUP PO SCH (10:05)
[2017-03-17] MEDS: ASPIRIN 325 MG TAB PO SCH (10:05)
[2017-03-17] MEDS: SODIUM CHLORIDE 0.9% FLUSH 10 ML FLUSH IVF PRN (10:06)
--- NOTE | 2017-03-17 16:46 | PD.CONS ---
HPI History of Present Illness This is a 66 year old male who is currently hospitalized in the ICU sedated on the ventilator. He is unable to provide any history and therefore the history has been obtained from the EMR and myself. 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 GI has been consulted for anemia with hemoccult positive stool. His H/H has remained stable and is at 12.7/40.8. He is tolerating TF. The nurse reports that he has had a dark greenish/black bowel movement. He is not having any maco red active bleeding. Of note, there is a hx of peptic ulcer disease according to the EMR. He has required mechanical ventilation since 02/23/17 and will likely need tracheostomy and PEG tube, once he is not requiring such high settings. (Rosario Recio) PFSH Past Medical History COPD Chronic bronchitis Obstructive sleep apnea Hx of atrial flutter, Ischemic dilated cardiopathy ejection fraction 20% CHF CAD, Hypertension, Sleep apnea, no CPAP, History of abdominal ulcer, Arthritis Past Surgical History Permanent pacemaker- AICD- ejection fraction 20%- 2014 CABG 2000, stent to RCA, appendectomy 1998, ORIF to left forearm (Rosario Recio) Coded Allergies: No Known Allergies (Verified , 02/23/17) Medications Allergies Coded Allergies Type Severity Reaction Last Updated Verified No Known Allergies 02/23/17 Yes Active Scripts Medications Dose Route/Sig Days Date Category Dose Instructions Ferocon (Ferrous Fumarate W/ B12-Vit C-) 1 Cap Cap 02/23/17 Reported Omeprazole 20 Mg Tab 20 Mg PO DAILY 02/23/17 Reported Lisinopril 5 Mg Tab 5 Mg PO DAILY 02/23/17 Reported Atorvastatin (Atorvastatin Calcium) 40 Mg Tab 40 Mg PO HS 02/23/17 Reported Potassium Chloride ER (Potassium Chloride) 10 Meq Tab 10 Meq PO BID 02/23/17 Reported Furosemide 40 Mg Tab 40 Mg PO BID 02/23/17 Reported Ipratropium [place] 1 Pow Pow 02/23/17 Reported Albuterol Neb (Albuterol Sulfate) 2.5 Mg/3 Ml Neb 2.5 Mg NEB Q4HR NEB 02/23/17 Reported While awake Vitamin D3 (Cholecalciferol) 3,000 Unit Tab 3,000 Units PO DAILY 02/23/17 Reported Magnesium 500 Mg Tab 500 Mg PO DAILY 02/23/17 Reported Metoprolol Tartrate 50 Mg Tab 50 Mg PO BID 02/23/17 Reported Clopidogrel (Clopidogrel Bisulfate) 75 Mg Tab 75 Mg PO DAILY 02/23/17 Reported Vitamin C (Ascorbic Acid) 1,000 Mg Tab 1,000 Mg PO 02/23/17 Reported Claritin (Loratadine) 10 Mg Tab 10 Mg PO DAILY 02/23/17 Reported Aspirin 325 Mg Tab 325 Mg PO DAILY 02/23/17 Reported Family History Unable to obtain Social History Unable to obtain (Rosario Recio) Review of Systems ROS Unable to obtain (Rosario Recio) GI Exam Vitals I&O Vital Signs Date Time Temp Pulse Resp B/P Pulse Ox O2 Delivery O2 Flow Rate FiO2 03/17/17 14:14 92 70 03/17/17 08:15 93 70 03/17/17 06:00 104 03/17/17 04:15 92 70 03/17/17 04:00 60 03/17/17 04:00 99.7 119 20 105/57 92 03/17/17 04:00 114 03/17/17 02:00 119 03/17/17 00:58 99 60 03/17/17 00:00 99.6 119 24 103/74 90 03/17/17 00:00 119 03/17/17 00:00 60 03/16/17 22:00 122 03/16/17 20:51 94 60 03/16/17 20:00 124 03/16/17 20:00 99.5 124 21 105/62 92 03/16/17 20:00 60 03/16/17 18:00 90 I/O 03/16/17 03/16/17 03/16/17 03/17/17 03/17/17 03/17/17 07:00 15:00 23:00 07:00 15:00 23:00 Intake Total 1339 ml 1062 ml 2498 ml 1508 ml Output Total 600 ml 900 ml 1280 ml 950 ml Balance 739 ml 162 ml 1218 ml 558 ml IV Total 965 ml 547 ml 1750 ml 1163 ml Tube Feeding 374 ml 515 ml 548 ml 345 ml Other 200 ml Output Urine Total 600 ml 900 ml 800 ml 650 ml Stool Total 400 ml 300 ml Gastric Drainage Total 80 ml # Bowel Movements 1 1 Imaging Last Impressions Upper Extremity Ultrasound 03/14/17 0000 Signed Impressions: Service Date/Time: Tuesday, March 14, 2017 18:49 - CONCLUSION: 1. Thrombus throughout the cephalic veins bilaterally. These are superficial venous structures. 2. Questionable minimal thrombus within the left subclavian vein. Garrick Hinton Jr., MD Chest X-Ray 03/14/17 0000 Signed Impressions: Service Date/Time: Tuesday, March 14, 2017 09:08 - CONCLUSION: 1. Interval improvement with less interstitial edema. 2. Persistent consolidative changes left base. Artur Bob MD FACR CT Angiography 03/02/17 1206 Signed Impressions: Service Date/Time: Thursday, March 02, 2017 13:46 - CONCLUSION: 1. No pulmonary embolus identified. 2. Small bilateral effusions with significant dependent atelectasis bilaterally. Riley Bob MD Lower Extremity Ultrasound 02/27/17 0000 Signed Impressions: Service Date/Time: Monday, February 27, 2017 08:31 - CONCLUSION: Normal examination. Nick Farrell MD Abdomen X-Ray 02/24/17 0000 Signed Impressions: Service Date/Time: Friday, February 24, 2017 10:43 - CONCLUSION: 1. Nasogastric tube just across the GE junction. 2. Minimal nonspecific bowel gas dilatation. Artur Bob MD FACR Laboratory Test 03/16/17 03/16/17 03/17/17 18:00 22:49 04:44 Stool C. difficile Toxin (PCR) NEGATIVE Stl C. difficile Toxin PRESUMPTIVE Epiderm 027 NEGATIVE Vancomycin Level Trough 22.6 MCG/ML White Blood Count 13.1 TH/MM3 Red Blood Count 4.34 MIL/MM3 Hemoglobin 12.7 GM/DL Hematocrit 40.8 % Mean Corpuscular Volume 94.1 FL Mean Corpuscular Hemoglobin 29.2 PG Mean Corpuscular Hemoglobin 31.1 % Concent Red Cell Distribution Width 16.2 % Platelet Count 176 TH/MM3 Mean Platelet Volume 10.7 FL Neutrophils (%) (Auto) 89.7 % Lymphocytes (%) (Auto) 2.7 % Monocytes (%) (Auto) 6.1 % Eosinophils (%) (Auto) 0.9 % Basophils (%) (Auto) 0.6 % Neutrophils # (Auto) 11.8 TH/MM3 Lymphocytes # (Auto) 0.4 TH/MM3 Monocytes # (Auto) 0.8 TH/MM3 Eosinophils # (Auto) 0.1 TH/MM3 Basophils # (Auto) 0.1 TH/MM3 CBC Comment AUTO DIFF Differential Total Cells 100 Counted Neutrophils % (Manual) 84 % Band Neutrophils % 4 % Lymphocytes % 3 % Monocytes % 5 % Neutrophils # (Manual) 12.1 TH/MM3 Myelocytes 4 % Differential Comment FINAL DIFF MANUAL Platelet Estimate NORMAL Platelet Morphology Comment NORMAL Sodium Level 149 MEQ/L Potassium Level 4.2 MEQ/L Chloride Level 109 MEQ/L Carbon Dioxide Level 35.9 MEQ/L Anion Gap 4 MEQ/L Blood Urea Nitrogen 66 MG/DL Creatinine 0.92 MG/DL Estimat Glomerular Filtration 82 ML/MIN Rate Random Glucose 123 MG/DL Calcium Level 9.8 MG/DL Date/Time Procedure Status Source Growth 03/16/17 18:01 Stool Occult Blood (GINGER) - Final Complete Stool Stool HEMOCCULT POSITIVE 03/14/17 11:30 Urine Culture - Final Complete Urine Catheterized Urine NO GROWTH IN 48 HOURS. 03/14/17 11:30 Gram Stain - Final Complete Sputum Endotracheal 03/14/17 11:30 Sputum Culture - Final Complete Sputum Endotracheal MODERATE GROWTH NORMAL RESPIRATORY DANIEL 03/14/17 08:53 Aerobic Blood Culture - Preliminary Resulted Blood Peripheral NO GROWTH IN 3 DAYS 03/14/17 08:53 Anaerobic Blood Culture - Preliminary Resulted Blood Peripheral NO GROWTH IN 3 DAYS Physical Examination HEENT: Normocephalic; atraumatic; no jaundice. CHEST: OETT to vent. Course breath sounds CARDIAC: Irregular, tachycardic 120 ABDOMEN: Soft, nondistended, nontender; no hepatosplenomegaly; bowel sounds are present in all four quadrants. EXTREMITIES: Generalized edema. 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 Nurse reports dark green/blackish stool. Hemoccult was positive. No maco red active bleeding. There is note of PUD in the EMR. He is on Plavix, ASA and was getting Heparin. His H/H has remained stable. D/W Dr. Gallagher, he will likely require tracheostomy and peg tube placement once they are able to go down on the ventilator settings. Will cont. PPI and monitor HH and plan for egd at time of PEG tube placement. PPI. - Anemia. 12.7/40.8. Stable. PPI - Acute Resp. Failure, Vent per CCM. Nebs. - CHF, Cardiomyopathy, Pulmonary htn, Pulmonary edema. Cardiology following. EF 40-45%. AICD/PPM. - CAD, HTN, Hyperlipidemia. per CCM. PLAN: - TF as tolerated - Increase protonix to 40mg IV BID - Monitor HH - Transfuse as necessary - D/W Dr. Gallagher, patient will likely require tracheostomy and PEG tube placement in the future. Will cont. PPI and closely monitor HH, and plan for EGD when he is ready for tracheostomy and PEG. - Supportive care - Pt seen and examined by Dr. Velez and myself and this note is written on her behalf (Rosario Recio) Physician Comments seen, examined agree with above (Polly Velez MD) Rosario Recio Mar 17, 2017 16:46 Polly Velez MD Mar 17, 2017 18:34
[2017-03-17] MEDS: fentaNYL DRIP 250 ML IV SCH (18:49)
[2017-03-17] MEDS: ATORVASTATIN 40 MG TAB PO SCH (20:42)
[2017-03-17] MEDS: VANCOMYCIN INJ 1,750 MG in SODIUM CHLORID 0.9% 500 ML INJ 500 ML IV SCH (23:27)
[2017-03-18] VITALS (19 sets, daily range): BP systolic 100–113; BP diastolic 56–79; PULSE 112–127; RESP 13–19; TEMP 99–100; O2SAT 90–96
[2017-03-18] MEDS: PROPOFOL 1000 MG/100 ML INJ 100 ML IV SCH ×6 (03:22→23:36)
[2017-03-18] MEDS: CHLORHEXIDINE GLUCONATE 2 % 1 PACK (2 CLOTHS) TOP SCH (03:23)
[2017-03-18] MEDS: PIPERACIL-TAZO 4.5 GM PREMIX 100 ML IV SCH (03:23)
[2017-03-18] MEDS: EPOPROSTENOL NEB SOLUTION 50 NG/KG/MIN 100 ML NEB SCH ×6 (03:23→20:00)
[2017-03-18] MEDS: INSULIN NovoLIN REGULAR SUPPLEMENTAL SCALE SQ SCH ×4 (03:26→23:00)
[2017-03-18 04:59] LABS: BASOPHIL % 0.3 % (0.0-2.0); HEMATOCRIT 36.7 % (39.0-51.0); LYMPH % 2.6 % (9.0-44.0); LYMPHOCYTE # 0.3 TH/MM3 (1.0-4.8); MEAN CELL VOLUME 91.5 FL (80.0-100.0); MEAN CORPUSCULAR HEMOGLOBIN 30.2 PG (27.0-34.0); MONO % 3.3 % (0.0-8.0); NEUT % 93.8 % (16.0-70.0); PLATELET COUNT 196 TH/MM3 (150-450); RED BLOOD COUNT 4.01 MIL/MM3 (4.50-5.90); RED CELL DISTRIBUTION WIDTH 16.3 % (11.6-17.2); WHITE BLOOD COUNT 11.7 TH/MM3 (4.0-11.0)
[2017-03-18 05:19] LABS: HEMO FLAGS AUTO DIFF
[2017-03-18 05:20] LABS: POTASSIUM 4.3 MEQ/L (3.5-5.1)
[2017-03-18] MEDS: ACETAMINOPHEN 325 MG TAB PO PRN ×2 (05:32→10:31)
[2017-03-18] MEDS: FREE WATER G-TUBE SCH ×4 (05:33→23:39)
[2017-03-18 07:29] LABS: BANDS 1 % (0-6); METAMYELOCYTES 1 % (0-1); MYELOCYTES 1 % (0-0); NEUTROPHIL # MANUAL DIFF 11.2 TH/MM3 (1.8-7.7); POLYS (SEG NEUTROPHILS) 93 % (16-70); WBC DIFF SAMPLE 100
[2017-03-18 07:30] LABS: PLATELET ESTIMATE SMEAR NORMAL (NORMAL); PLATELET MORPHOLOGY NORMAL (NORMAL); SCAN/DIFF FINAL DIFF MANUAL
[2017-03-18] MEDS: CHLORHEXIDINE 0.12% (ORAL KIT) 15 ML CUP MT SCH ×2 (08:00→20:12)
--- NOTE | 2017-03-18 08:30 | HHI.IDPN ---
Subjective Subjective Remarks Notes reviewed Continues to have fevers FiO2 up to 90% last night, 75% this morning BP ok Good UO No new (+) BC BC with Staph epidermidis, different susceptibility results Sputum with MSSA WBC lower US BUE has clots in cephalic vein, and possible minimal clot in LSC Antibiotics Vancomycin Zosyn Lines PIV Past Medical History Reviewed Allergies: Coded Allergies: No Known Allergies (Verified , 02/23/17) Objective . Vital Signs Date Time Temp Pulse Resp B/P Pulse Ox O2 Delivery O2 Flow Rate FiO2 03/18/17 07:18 95 75 03/18/17 06:00 114 03/18/17 04:16 95 90 03/18/17 04:00 114 03/18/17 04:00 99.0 113 13 101/65 96 03/18/17 04:00 90 03/18/17 02:00 120 03/18/17 01:03 92 90 03/18/17 00:00 90 03/18/17 00:00 99.1 116 19 113/79 92 03/18/17 00:00 116 03/17/17 22:00 120 03/17/17 20:30 92 70 03/17/17 20:00 116 03/17/17 20:00 99.1 116 18 109/78 93 03/17/17 20:00 70 03/17/17 18:37 92 70 03/17/17 18:00 119 03/17/17 16:00 100.0 125 20 126/71 93 03/17/17 16:00 125 03/17/17 16:00 60 03/17/17 14:14 92 70 03/17/17 14:00 102.8 03/17/17 14:00 120 03/17/17 12:00 125 03/17/17 12:00 60 03/17/17 12:00 101.0 125 20 95/71 92 03/17/17 10:00 122 03/17/17 03/17/17 03/18/17 15:00 23:00 07:00 Intake Total 1225 ml 716 ml 1773 ml Output Total 1950 ml 485.0 ml 925 ml Balance -725 ml 231.0 ml 848 ml IV Total 600 ml 340 ml 891 ml Tube Feeding 500 ml 316 ml 382 ml Other 125 ml 60 ml 500 ml Output Urine Total 1700 ml 475 ml 625 ml Stool Total 250 ml Gastric Drainage Total 0 ml Tube Feeding Residual Discard 10.0 ml Drainage Total 300 ml # Bowel Movements 1 1 . Laboratory Tests Test 03/17/17 03/18/17 04:44 03:51 White Blood Count 13.1 TH/MM3 11.7 TH/MM3 Red Blood Count 4.34 MIL/MM3 4.01 MIL/MM3 Hemoglobin 12.7 GM/DL 12.1 GM/DL Hematocrit 40.8 % 36.7 % Mean Corpuscular Volume 94.1 FL 91.5 FL Mean Corpuscular Hemoglobin 29.2 PG 30.2 PG Mean Corpuscular Hemoglobin 31.1 % 33.0 % Concent Red Cell Distribution Width 16.2 % 16.3 % Platelet Count 176 TH/MM3 196 TH/MM3 Mean Platelet Volume 10.7 FL 10.6 FL Neutrophils (%) (Auto) 89.7 % 93.8 % Lymphocytes (%) (Auto) 2.7 % 2.6 % Monocytes (%) (Auto) 6.1 % 3.3 % Eosinophils (%) (Auto) 0.9 % 0.0 % Basophils (%) (Auto) 0.6 % 0.3 % Neutrophils # (Auto) 11.8 TH/MM3 11.0 TH/MM3 Lymphocytes # (Auto) 0.4 TH/MM3 0.3 TH/MM3 Monocytes # (Auto) 0.8 TH/MM3 0.4 TH/MM3 Eosinophils # (Auto) 0.1 TH/MM3 0.0 TH/MM3 Basophils # (Auto) 0.1 TH/MM3 0.0 TH/MM3 CBC Comment AUTO DIFF AUTO DIFF Differential Total Cells 100 100 Counted Neutrophils % (Manual) 84 % 93 % Band Neutrophils % 4 % 1 % Lymphocytes % 3 % 3 % Monocytes % 5 % 1 % Neutrophils # (Manual) 12.1 TH/MM3 11.2 TH/MM3 Myelocytes 4 % 1 % Differential Comment FINAL DIFF FINAL DIFF MANUAL MANUAL Platelet Estimate NORMAL NORMAL Platelet Morphology Comment NORMAL NORMAL Metamyelocytes 1 % Laboratory Tests Test 03/17/17 03/18/17 04:44 03:51 Sodium Level 149 MEQ/L 151 MEQ/L Potassium Level 4.2 MEQ/L 4.3 MEQ/L Chloride Level 109 MEQ/L 110 MEQ/L Carbon Dioxide Level 35.9 MEQ/L 36.0 MEQ/L Anion Gap 4 MEQ/L 5 MEQ/L Blood Urea Nitrogen 66 MG/DL 56 MG/DL Creatinine 0.92 MG/DL 0.75 MG/DL Estimat Glomerular Filtration 82 ML/MIN 104 ML/MIN Rate Random Glucose 123 MG/DL 140 MG/DL Calcium Level 9.8 MG/DL 10.0 MG/DL Microbiology Date/Time Procedure Status Source Growth 03/16/17 18:01 Stool Occult Blood (GINGER) - Final Complete Stool Stool HEMOCCULT POSITIVE Imaging Chest X-Ray 03/11/17 0600 Signed Impressions: Service Date/Time: Saturday, March 11, 2017 04:03 - CONCLUSION: 1. Bilateral lower lobe atelectasis versus pneumonia. There has been no significant change when compared to the prior exam. Lavell Maciel MD CT Angiography 03/02/17 1206 Signed Impressions: Service Date/Time: Thursday, March 02, 2017 13:46 - CONCLUSION: 1. No pulmonary embolus identified. 2. Small bilateral effusions with significant dependent atelectasis bilaterally. Riley Bob MD Lower Extremity Ultrasound 02/27/17 0000 Signed Impressions: Service Date/Time: Monday, February 27, 2017 08:31 - CONCLUSION: Normal examination. Nick Farrell MD Abdomen X-Ray 02/24/17 0000 Signed Impressions: Service Date/Time: Friday, February 24, 2017 10:43 - CONCLUSION: 1. Nasogastric tube just across the GE junction. 2. Minimal nonspecific bowel gas dilatation. Artur Bob MD FACR Physical Exam GENERAL: sedated, on the vent, not in respiratory distress. SKIN: Warm and moist. No generalized rash. HEENT: [place] conjunctivae. No scleral icterus. Endotracheal tube is in the mouth. NECK: Supple, nontender, no meningeal signs. CARDIOVASCULAR: Regular rate and rhythm without murmurs, gallops, or rubs. His monitor shows atrial flutter RESPIRATORY: Has scattered rhonchi GASTROINTESTINAL: Abdomen soft, obese, nondistended. Bowel sounds are present. No reaction to palpation MUSCULOSKELETAL: Lower extremities without clubbing, cyanosis or pedal edema. His upper extremities are edematous. NEUROLOGICAL: Sedated. No Babinski PSYCH: Unable to assess LINE: PIV with no evidence of infection : [facility] catheter in place, with small amount of sediment Assessment & Plan Remarks IMPRESSION Leukocytosis, etiology? - better - likely reactive, ?due to his pulmonary status, has had increased O2 requirement - ?New infection, he has not been febrile - CXR looks better - ? - has no line - no diarrhea Fevers - ?partly due to vein clots; cephalic are superficial veins - ?drug fevers Respiratory failure - has known ischemic cardiomyopathy BC with Coag Neg STaph, no final ID yet - ?significance Known COPD Obesity RECOMMENDATION Follow C/S Continue IV Vanco Change Zosyn to Levaquin Follow temps If continues to have fevers and nothing new on C/S, will stop Vancomycin Monitor progress Heather Young MD Mar 18, 2017 08:30
--- NOTE | 2017-03-18 08:46 | HHI.CCPN ---
Subjective Remarks/Hospital Course The patient is a 66-year-old male with past medical history of COPD, cardiomyopathy, hypertension, gastroesophageal reflux disease, hyperlipidemia and coronary artery disease. The patient presented to [facility] ED with a 2-week history of progressive worsening shortness of breath. On arrival to the ED he was initially placed on a non-rebreather mask and ABG was performed which showed acute hypercapnic respiratory failure with a pH of 7.14, CO2 121, pAO2 141, bicarb 40, sats 93%. His laboratory data significant for hyperkalemia with potassium level 6.0 and acute renal failure with a BUN of 43 and creatinine 2.07 respectively. The chest x-ray showed cardiomegaly and findings of vascular congestion without overt failure. In the ED the patient was intubated with etomidate and rocuronium and placed on full mechanical ventilation. In addition, he is scheduled to receive 10 units IV regular insulin, 1 amp of D50 and calcium gluconate for hyperkalemia. He received cefepime, azithromycin, Solu-Medrol 125 milligrams IV push and bronchodilator treatment. When seen the patient is on Diprivan infusion for sedation and full mechanical ventilation. Per the patient is not on any oxygen at home and he occasionally smokes cigarettes. 02/24 Patient is intubated and sedated with Diprivan and Fentanyl. Switched to PC/ AC with RR 12, IP:24, IT:1.06, PEEP: 8 and FIO2 100%. CXR this morning showed interval development of bilateral perihilar and lower lung zone airspace opacity he was given Lasix 60mg total overnight. 02/25 Patient remains sedated and intubated with Diprivan and Fentanyl. Afebrile.On PC/AC with RR 12, IP:22, IT:1.10, PEEP:10, FIO2 70%. Afebrile. Renal function worse today with Cr: 1.90 from 1.72 UO: 1150ml in 24 hrs 02/26 No acute events overnight. Sedated with Fentanyl and Diprivan and intubated. Afebrile. His O2 requirements is less now on PC/AC with IP:22, IT: 1.1 with PEEP: 10 and FIO2 55%. Renal function improving with Cr: 1.42 today from 1.90. Tolerating tube feeds. 02/27 Patient remains sedated with Diprivan and Fentanyl infusion and intubated. Afebrile. 02/28: Remains sedated, orally intubated on mechanical ventilation. Being diuresed with Bumex. Tolerating tube feeds. 03/01: Remains sedated, orally intubated on mechanical ventilation. Being diabetes. Remains on PEEP of 10 and FiO2 60% 03/02 Patient remains sedated with Diprivan and Fentanyl and intubated. On PC/AC with PEEP: 10 and FIO2 80% overnight and sats 93-94%. Afebrile. 03/03: The patient remains on high respiratory requirements PEEP of 10, and FiO2 70%. 03/04: Tmax 99.9. Overnight the patient was noted to have desaturations the patient received a bolus of midazolam and fentanyl for ventilator dyssynchrony. The patient was redosed with Diamox with approximately 2.5 L diuresis in the last 12 hours. The patient continues on an FiO2 of 70% with PEEP of 10 to maintain an O2 sat of 90%. 03/05: Afebrile. Patient's FiO2 remains at 60% to maintain O2sat ranging in 92% . Future plans for tracheostomy discussed with when ventilator requirements are decreased. Patient currently is on a PEEP of 10. Patient receiving multiple doses of diuretics chest x-ray still showing increased vascular congestion. Cardiology following metalazone added to medication regimen per cardiology for diuresis. 03/06: Patient's O2 requirements were increased overnight to FiO2 of 90%. The patient's FiO2 has been decreased now currently to 70% O2 sat is 90% ABG is pending. The patient's diuresis effective, 1 kg weight loss in 24 hours. 03/07: The patient continues to have effective diuresis. The patient's O2 requirements currently FiO2 is 70% to maintain a sat of 90-91%. Discussion with Ms. London yesterday, she would like to discuss with palliative team goals of care. Palliative care consult initiated. 03/08: The patient was less responsive to diuretics today, positive weight balance last 24 hours. The patient was placed on a Lasix infusion, noted occasional PVCs on telemetry. Patient potassium repletion ongoing, schedule potassium PO intake increased to 50 mEq twice a day. Free water flushes placed on hold, was sodium level 145 will continue to monitor. Chest x-ray shows slight improvement. Continued management of ventilator settings ARDS protocol, maintaining PaO2 60 or greater and adjusting vent settings based on PaO2. Sedation vacation attempted today by [facility], GCS 11T. Noted WBC elevation today ID consulted. 03/09: Today the patient was noted to have increasing FiO2 requirements with a PaO2 of 61. FiO2 was increased to 100%, PEEP was gradually increased to 12, then 14. The patient subsequently became hypotensive, likely due to increasing PEEP, but chest x-ray also obtained to rule out pneumothorax which was clear. The patient subsequently was laced on phenylephrine low-dose 20 mcgs which was eventually weaned off. The patient was placed on PEEP at 7 and FiO2 of 100%, sedation was weaned to lower dose. Palliative care also discussed with goals of care and the patient was made DNR. 03/10 noted creatinine elevation last night, Lasix discontinued. Dobutamine initiated per cardiology this morning. The patient continues to have high requirements on a PEEP of 8 and FiO2 of 100% his PaO2 49.2. PEEP has been increased plan to initiate Flolan. 03/11: Tmax 100.5. FRANK resolved with dobutamine infusion, heart rate 110. Microbiology report bacteremia gram-positive cocci and sputum. Patient currently on Diflucan. Will begin Linezolid in the setting of recent FRANK and oliguria, and await further recommendations from infectious disease jewelry consultant. Respiratory status deteriorating. The patient was placed on Flolan last night PaO2 67. Patient remains on a PEEP of 10, unable to advance secondary to hypotension. 03/12 Patient remains sedated with Diprivan, Fentanyl and intubated. On Dobutamine 2.5 mics and Flolan. Remains On PC/AC with RR 12, IP:22, IT:1.20, PEEP;10 and FIo2 90%. Afebrile. 03/13 Patient is sedated with Diprivan and Fentanyl and intubated. On PC/AC with PEEP:12, FIO2 80%. Tmax 101.7 Remains on Dobutamine and Flolan. 03/14 Patient remains sedated and intubated. On PC/AC with PEEP:12 and FIO2 100% . T: 101.5 last night. On Flolan off Dobutamine. 03/15 No acute events overnight. Sedated with Diprivan and Fentanyl. On PC/AC with PEEP: 12, FIO2 down to 70%. Tmax 101.6. On Flolan nebs. 03/16 Patient remains sedated and intubated On PC/AC with decrease in FIO2 requirements down to 65% FIO2 with PEEP: 12. Tmax 101.4. On Heparin drip. 03/17 Patient remains sedated and intubated. T: 99.7, heparin drip turned off as patient had bloody secretions with suctioning and Hemoccult was positive. 03/18 No acute events overnight. Remains sedated and intubated. Tmax 102.8. Off heparin drip patient has minimal bloody secretions. Objective Vital Signs Date Time Temp Pulse Resp B/P Pulse Ox O2 Delivery O2 Flow Rate FiO2 03/18/17 07:18 95 75 03/18/17 06:00 114 03/18/17 04:00 99.0 13 101/65 Intake and Output 03/17/17 03/17/17 03/18/17 08:00 16:00 00:00 Intake Total 1508 ml 1225 ml 716 ml Output Total 950 ml 1950 ml 485.0 ml Balance 558 ml -725 ml 231.0 ml Result Diagram: 03/18/17 0351 03/18/17 0351 Other Results Laboratory Tests Test 03/18/17 03:51 White Blood Count 11.7 TH/MM3 Red Blood Count 4.01 MIL/MM3 Hemoglobin 12.1 GM/DL Hematocrit 36.7 % Mean Corpuscular Volume 91.5 FL Mean Corpuscular Hemoglobin 30.2 PG Mean Corpuscular Hemoglobin 33.0 % Concent Red Cell Distribution Width 16.3 % Platelet Count 196 TH/MM3 Mean Platelet Volume 10.6 FL Neutrophils (%) (Auto) 93.8 % Lymphocytes (%) (Auto) 2.6 % Monocytes (%) (Auto) 3.3 % Eosinophils (%) (Auto) 0.0 % Basophils (%) (Auto) 0.3 % Neutrophils # (Auto) 11.0 TH/MM3 Lymphocytes # (Auto) 0.3 TH/MM3 Monocytes # (Auto) 0.4 TH/MM3 Eosinophils # (Auto) 0.0 TH/MM3 Basophils # (Auto) 0.0 TH/MM3 CBC Comment AUTO DIFF Differential Total Cells 100 Counted Neutrophils % (Manual) 93 % Band Neutrophils % 1 % Lymphocytes % 3 % Monocytes % 1 % Neutrophils # (Manual) 11.2 TH/MM3 Metamyelocytes 1 % Myelocytes 1 % Differential Comment FINAL DIFF MANUAL Platelet Estimate NORMAL Platelet Morphology Comment NORMAL Sodium Level 151 MEQ/L Potassium Level 4.3 MEQ/L Chloride Level 110 MEQ/L Carbon Dioxide Level 36.0 MEQ/L Anion Gap 5 MEQ/L Blood Urea Nitrogen 56 MG/DL Creatinine 0.75 MG/DL Estimat Glomerular Filtration 104 ML/MIN Rate Random Glucose 140 MG/DL Calcium Level 10.0 MG/DL Imaging Last Impressions Upper Extremity Ultrasound 03/14/17 0000 Signed Impressions: Service Date/Time: Tuesday, March 14, 2017 18:49 - CONCLUSION: 1. Thrombus throughout the cephalic veins bilaterally. These are superficial venous structures. 2. Questionable minimal thrombus within the left subclavian vein. Garrick Hinton Jr., MD Chest X-Ray 03/14/17 0000 Signed Impressions: Service Date/Time: Tuesday, March 14, 2017 09:08 - CONCLUSION: 1. Interval improvement with less interstitial edema. 2. Persistent consolidative changes left base. Artur Bob MD FACR CT Angiography 03/02/17 1206 Signed Impressions: Service Date/Time: Thursday, March 02, 2017 13:46 - CONCLUSION: 1. No pulmonary embolus identified. 2. Small bilateral effusions with significant dependent atelectasis bilaterally. Riley Bob MD Lower Extremity Ultrasound 02/27/17 0000 Signed Impressions: Service Date/Time: Monday, February 27, 2017 08:31 - CONCLUSION: Normal examination. Ncik Farrell MD Abdomen X-Ray 02/24/17 0000 Signed Impressions: Service Date/Time: Friday, February 24, 2017 10:43 - CONCLUSION: 1. Nasogastric tube just across the GE junction. 2. Minimal nonspecific bowel gas dilatation. Artur Bob MD FACR Objective Remarks GENERAL: Patient is 66 yo obese male intubated and sedated SKIN: Warm and dry. HEAD: Normocephalic. EYES: No scleral icterus. No injection or drainage. NECK: Supple, trachea midline. No JVD or lymphadenopathy. CARDIOVASCULAR:Tachycardic without murmurs, gallops, or rubs. RESPIRATORY: On mechanical ventilation, orally intubated, Breath sounds equal bilaterally. Few Coarse BS GASTROINTESTINAL: Abdomen soft, non-tender, nondistended. OGT, tube feedings infusing MUSCULOSKELETAL: 2+ bilateral edema in upper extremities. Neuro: Sedated, intubated Date of Removal: Mar 04, 2017 Line: Central Venous Catheter Side: Right A/P Assessment and Plan 1. Acute hypercapnic and hypoxemic respiratory failure. 2. COPD exacerbation. 3. Acute renal failure. 4. Hypernatremia 5. Obstructive sleep apnea and morbid obesity. 6. Ischemic dilated Cardiomyopathy. S/P AICD 03/2015 7. History of coronary artery disease. 8. Gastroesophageal reflux disease. 9. Hypertension. 10. Hyperlipidemia. 11 Pulm edema 12. Acute on chronic systolic and diastolic CHF 13. Pulmonary hypertension 14. Bacteremia Plan: Neuro: On Diprivan and Fentanyl infusion for sedation. Daily sedation vacation when appropriate. CV: Monitor HR and BP keep MAP>65mmHg On aspirin 325 milligrams p.o. daily and Plavix 75 mg p.o. daily. Prinivil 5mg daily 01/2017 Echo showed EF 40-45%, nl LV diastolic function, No RWMA Cardiology following-Dr. Cole. Pulm: On PC/AC RR 12, IP:22, IT:1.2 PEEP: 12, FIO2: 80 %, decrease FIO2 as kristie. Continue with vent support and maintain sats above 92%. Check CXR Bronchodilators every 4 hours, Solu-Medrol 40 mg IV BID. Pulm-Dr. Lashell Padron following CTA chest 03/02 showed no PE, small pleural effusions Continue with Flolan nebs 8ml/hr(30,000 ng/ml) : Monitor renal function Is and Os and avoid nephrotoxins. Electrolytes replacement per protocol. Lasix 40mg daily Increase Free water 300 ml Q6, monitor sodium level. GI: On Protonix 40 milligrams IV daily for GI prophylaxis. On TF- Glucerna 1.5 @45ml/hr, no residuals Senna, Colace for bowel regimen, Lactulose 15mg BID, 02/24 KUB abdomen: Minimal non-specific bowel gas dilatation GI is following for anemia and positive Hemoccult. Will need EGD and PEG tube placement next week, ID:Continue with abx per ID(Vancomycin, Levaquin) monitor for signs of infections ( Fever, WBC) WBC trending down 03/16 C-dif PCR negative 03/14: BC: NGTD 03/14: Normal resp tiffany, urine cx: No growth 03/09 Repeat Bld cultures-staph Epi, coag negative staph- likely contaminant 03/09 Repeat sputum culture-staph aureus Heme: Monitor CBC. Endo: SSI with Accu-Chek q. 6-hour for glycemic control. GI prophylaxis with Protonix 40 mg BID and DVT prophylaxis with SCDs, hold heparin drip. Doppler US UE: 03/14-Thrombus throughout the cephalic veins bilaterally. ? minimal thrombus within the left subclavian vein. Heparin drip turned off as patient had bloody secretions with suctioning and positive Hemoccult. Doppler US LE No DVT on 02/27 Dispo: Discussed patient with [facility]. Palliative care is following. CCT 30 mins Georgia Ocampo MD Mar 18, 2017 08:46
[2017-03-18] MEDS: FUROSEMIDE 40 MG/4 ML VIAL IV PUSH SCH (09:00)
[2017-03-18] MEDS: LISINOPRIL 5 MG TAB PO SCH (09:00)
[2017-03-18] MEDS: PANTOPRAZOLE SODIUM 40 MG VIAL IV SCH (09:00)
[2017-03-18] MEDS: methylPREDNISolone SOD SUCC 40 MG/1 ML VIAL IV PUSH SCH ×2 (09:00→20:12)
[2017-03-18] MEDS: SENNOSIDES SYRUP 8.8 MG/5 ML CUP PO SCH (09:00)
[2017-03-18] MEDS: CLOPIDOGREL 75 MG TAB PO SCH (09:00)
[2017-03-18] MEDS: DOCUSATE SODIUM 100 MG/10 ML UDC PO SCH ×2 (09:00→20:13)
[2017-03-18] MEDS: LEVOFLOXACIN 750 MG TAB PO SCH (09:00)
[2017-03-18] MEDS: ASPIRIN 325 MG TAB PO SCH (09:00)
--- NOTE | 2017-03-18 09:32 | RADRPT ---
EXAM DATE/TIME: 03/18/2017 08:43 [place] COMPARISON: CHEST SINGLE AP, March 14, 2017, 9:08. INDICATIONS : Respiratory failure. MEDICAL HISTORY : Chronic obstructive pulmonary disease. Myocardial infarction. Hypercholesterolemia. Emphysema. Co ngestive heart failure. SURGICAL HISTORY : Pacemaker. CABG. ENCOUNTER: Subsequent ACUITY: 3 weeks PAIN SCORE: Non-responsive. LOCATION: Bilateral chest FINDINGS: The patient is status post sternotomy. There is a pacing device in place from the left subclavian radha sotelo. The heart size is upper limits of normal. There is increased density at the left base with marta houetting of the left hemidiaphragm. The right lung is clear. CONCLUSION: Left lower lobe consolidation/atelectasis and likely some effusion. Nick Menchaca MD on March 18, 2017 at 9:29 Board Certified Radiologist. This report was verified electronically.
--- NOTE | 2017-03-18 10:05 | HHI.GIFU ---
Subjective Remarks No acute events overnight. Pt currently on sedation vacation and awake on vent CCM is weaning vent settings, pt currently of FiO2 70 No active GIB Pt with green liquid stools in rectal bag (Aruna Oneill) Objective Vitals I&O Vital Signs Date Time Temp Pulse Resp B/P Pulse Ox O2 Delivery O2 Flow Rate FiO2 03/18/17 07:18 95 75 03/18/17 06:00 114 03/18/17 04:16 95 90 03/18/17 04:00 114 03/18/17 04:00 99.0 113 13 101/65 96 03/18/17 04:00 90 03/18/17 02:00 120 03/18/17 01:03 92 90 03/18/17 00:00 90 03/18/17 00:00 99.1 116 19 113/79 92 03/18/17 00:00 116 03/17/17 22:00 120 03/17/17 20:30 92 70 03/17/17 20:00 116 03/17/17 20:00 99.1 116 18 109/78 93 03/17/17 20:00 70 03/17/17 18:37 92 70 03/17/17 18:00 119 03/17/17 16:00 100.0 125 20 126/71 93 03/17/17 16:00 125 03/17/17 16:00 60 03/17/17 14:14 92 70 03/17/17 14:00 102.8 03/17/17 14:00 120 03/17/17 12:00 125 03/17/17 12:00 60 03/17/17 12:00 101.0 125 20 95/71 92 03/17/17 10:00 122 I/O 03/17/17 03/17/17 03/17/17 03/18/17 03/18/17 03/18/17 07:00 15:00 23:00 07:00 15:00 23:00 Intake Total 1508 ml 1225 ml 716 ml 1773 ml Output Total 950 ml 1950 ml 485.0 ml 925 ml Balance 558 ml -725 ml 231.0 ml 848 ml IV Total 1163 ml 600 ml 340 ml 891 ml Tube Feeding 345 ml 500 ml 316 ml 382 ml Other 125 ml 60 ml 500 ml Output Urine Total 650 ml 1700 ml 475 ml 625 ml Stool Total 300 ml 250 ml Gastric Drainage Total 0 ml Tube Feeding Residual Discard 10.0 ml Drainage Total 300 ml # Bowel Movements 1 1 Laboratory Laboratory Tests Test 03/18/17 03:51 White Blood Count 11.7 Red Blood Count 4.01 Hemoglobin 12.1 Hematocrit 36.7 Mean Corpuscular Volume 91.5 Mean Corpuscular Hemoglobin 30.2 Mean Corpuscular Hemoglobin 33.0 Concent Red Cell Distribution Width 16.3 Platelet Count 196 Mean Platelet Volume 10.6 Neutrophils (%) (Auto) 93.8 Lymphocytes (%) (Auto) 2.6 Monocytes (%) (Auto) 3.3 Eosinophils (%) (Auto) 0.0 Basophils (%) (Auto) 0.3 Neutrophils # (Auto) 11.0 Lymphocytes # (Auto) 0.3 Monocytes # (Auto) 0.4 Eosinophils # (Auto) 0.0 Basophils # (Auto) 0.0 CBC Comment AUTO DIFF Differential Total Cells 100 Counted Neutrophils % (Manual) 93 Band Neutrophils % 1 Lymphocytes % 3 Monocytes % 1 Neutrophils # (Manual) 11.2 Metamyelocytes 1 Myelocytes 1 Differential Comment FINAL DIFF MANUAL Platelet Estimate NORMAL Platelet Morphology Comment NORMAL Sodium Level 151 Potassium Level 4.3 Chloride Level 110 Carbon Dioxide Level 36.0 Anion Gap 5 Blood Urea Nitrogen 56 Creatinine 0.75 Estimat Glomerular Filtration 104 Rate Random Glucose 140 Calcium Level 10.0 Date/Time Procedure Status Source Growth 03/16/17 18:01 Stool Occult Blood (GINGER) - Final Complete Stool Stool HEMOCCULT POSITIVE 03/14/17 11:30 Urine Culture - Final Complete Urine Catheterized Urine NO GROWTH IN 48 HOURS. 03/14/17 11:30 Gram Stain - Final Complete Sputum Endotracheal 03/14/17 11:30 Sputum Culture - Final Complete Sputum Endotracheal MODERATE GROWTH NORMAL RESPIRATORY DANIEL 03/14/17 08:53 Aerobic Blood Culture - Preliminary Resulted Blood Peripheral NO GROWTH IN 3 DAYS 03/14/17 08:53 Anaerobic Blood Culture - Preliminary Resulted Blood Peripheral NO GROWTH IN 3 DAYS Imaging Last Impressions Chest X-Ray 03/18/17 0000 Signed Impressions: Service Date/Time: Saturday, March 18, 2017 08:43 - CONCLUSION: Left lower lobe consolidation/atelectasis and likely some effusion. Nick Menchaca MD Upper Extremity Ultrasound 03/14/17 0000 Signed Impressions: Service Date/Time: Tuesday, March 14, 2017 18:49 - CONCLUSION: 1. Thrombus throughout the cephalic veins bilaterally. These are superficial venous structures. 2. Questionable minimal thrombus within the left subclavian vein. Garrick Hinton Jr., MD CT Angiography 03/02/17 1206 Signed Impressions: Service Date/Time: Thursday, March 02, 2017 13:46 - CONCLUSION: 1. No pulmonary embolus identified. 2. Small bilateral effusions with significant dependent atelectasis bilaterally. Riley Bob MD Lower Extremity Ultrasound 02/27/17 0000 Signed Impressions: Service Date/Time: Monday, February 27, 2017 08:31 - CONCLUSION: Normal examination. Nick Farrell MD Abdomen X-Ray 02/24/17 0000 Signed Impressions: Service Date/Time: Friday, February 24, 2017 10:43 - CONCLUSION: 1. Nasogastric tube just across the GE junction. 2. Minimal nonspecific bowel gas dilatation. Artur Bob MD FACR Physical Exam GENERAL: NAD, awake on vent HEENT: Normocephalic. [place] conjunctiva. No jaundice NECK: Supple CARDIO: Tachycardic without murmurs, gallops, or rubs. RESP: On mechanical ventilation, orally intubated, few coarse BS ABD: +BS, soft, non-tender, nondistended. OGT, tube feedings infusing EXT: 2+ bilateral edema in upper extremities. NEURO: Awake, follows some commands per nursing staff, intubated (Aruna Oneill) Assessment and Plan Plan ASSESSMENT: - Hemoccult positive stool and melena. Nurse reports dark green/blackish stool. Hemoccult was positive. No maco red active bleeding. There is note of PUD in the EMR. He is on Plavix, ASA and was getting Heparin. His H/H has remained stable. Per CCM the pt will likely require tracheostomy and peg tube placement once they are able to go down on the ventilator settings. Will cont. PPI and monitor HH and plan for EGD at time of PEG tube placement. PPI. - Anemia. 12.36.7. Stable. PPI - Acute Resp. Failure, Vent per CCM. Nebs. - CHF, Cardiomyopathy, Pulmonary htn, Pulmonary edema. Cardiology following. EF 40-45%. AICD/PPM. - CAD, HTN, Hyperlipidemia. per CCM. PLAN: - TF as tolerated - Cont. Protonix 40mg IV BID - Monitor HH - Transfuse as necessary - Will cont. PPI and closely monitor HH and plan for EGD when he is ready for tracheostomy and PEG. - Supportive care - Pt seen and examined by Dr. Velez and myself and this note is written on her behalf (Aruna Oneill) Physician Comments seen, examined agree with above (Polly Velez MD) Aruna Oneill Mar 18, 2017 10:05 Polly Velez MD Mar 18, 2017 16:29
[2017-03-18] MEDS: ATORVASTATIN 40 MG TAB PO SCH (20:13)
[2017-03-18] MEDS: VANCOMYCIN INJ 1,750 MG in SODIUM CHLORID 0.9% 500 ML INJ 500 ML IV SCH (23:35)
[2017-03-19] VITALS (19 sets, daily range): BP systolic 92–119; BP diastolic 62–74; PULSE 95–130; RESP 12–22; TEMP 98–100.8; O2SAT 88–96
[2017-03-19] MEDS: EPOPROSTENOL NEB SOLUTION 50 NG/KG/MIN 100 ML NEB SCH ×4 (04:00→22:40)
[2017-03-19] MEDS: CHLORHEXIDINE GLUCONATE 2 % 1 PACK (2 CLOTHS) TOP SCH (04:00)
[2017-03-19] MEDS: FREE WATER G-TUBE SCH ×5 (04:41→20:00)
[2017-03-19] MEDS: PROPOFOL 1000 MG/100 ML INJ 100 ML IV SCH ×4 (04:41→20:35)
[2017-03-19] MEDS: INSULIN NovoLIN REGULAR SUPPLEMENTAL SCALE SQ SCH ×4 (04:44→23:00)
[2017-03-19 05:42] LABS: AUTOMATED NEUTROPHIL # 10.4 TH/MM3 (1.8-7.7); BASOPHIL % 0.2 % (0.0-2.0); HEMATOCRIT 36.3 % (39.0-51.0); LYMPH % 4.1 % (9.0-44.0); LYMPHOCYTE # 0.5 TH/MM3 (1.0-4.8); MEAN CELL VOLUME 92.2 FL (80.0-100.0); MEAN CORPUSCULAR HEMOGLOBIN 30.2 PG (27.0-34.0); MEAN CORPUSCULAR HGB CONC 32.8 % (32.0-36.0); NEUT % 90.7 % (16.0-70.0); PLATELET COUNT 195 TH/MM3 (150-450); RED BLOOD COUNT 3.94 MIL/MM3 (4.50-5.90); RED CELL DISTRIBUTION WIDTH 16.1 % (11.6-17.2); WHITE BLOOD COUNT 11.5 TH/MM3 (4.0-11.0)
[2017-03-19 05:46] LABS: HEMO FLAGS AUTO DIFF
[2017-03-19 06:17] LABS: BICARBONATE 35.7 MEQ/L (21.0-32.0); MAGNESIUM 2.7 MG/DL (1.5-2.5); POTASSIUM 4.7 MEQ/L (3.5-5.1)
--- NOTE | 2017-03-19 07:12 | HHI.CCPN ---
Subjective Remarks/Hospital Course The patient is a 66-year-old male with past medical history of COPD, cardiomyopathy, hypertension, gastroesophageal reflux disease, hyperlipidemia and coronary artery disease. The patient presented to [facility] ED with a 2-week history of progressive worsening shortness of breath. On arrival to the ED he was initially placed on a non-rebreather mask and ABG was performed which showed acute hypercapnic respiratory failure with a pH of 7.14, CO2 121, pAO2 141, bicarb 40, sats 93%. His laboratory data significant for hyperkalemia with potassium level 6.0 and acute renal failure with a BUN of 43 and creatinine 2.07 respectively. The chest x-ray showed cardiomegaly and findings of vascular congestion without overt failure. In the ED the patient was intubated with etomidate and rocuronium and placed on full mechanical ventilation. In addition, he is scheduled to receive 10 units IV regular insulin, 1 amp of D50 and calcium gluconate for hyperkalemia. He received cefepime, azithromycin, Solu-Medrol 125 milligrams IV push and bronchodilator treatment. When seen the patient is on Diprivan infusion for sedation and full mechanical ventilation. Per the patient is not on any oxygen at home and he occasionally smokes cigarettes. 02/24 Patient is intubated and sedated with Diprivan and Fentanyl. Switched to PC/ AC with RR 12, IP:24, IT:1.06, PEEP: 8 and FIO2 100%. CXR this morning showed interval development of bilateral perihilar and lower lung zone airspace opacity he was given Lasix 60mg total overnight. 02/25 Patient remains sedated and intubated with Diprivan and Fentanyl. Afebrile.On PC/AC with RR 12, IP:22, IT:1.10, PEEP:10, FIO2 70%. Afebrile. Renal function worse today with Cr: 1.90 from 1.72 UO: 1150ml in 24 hrs 02/26 No acute events overnight. Sedated with Fentanyl and Diprivan and intubated. Afebrile. His O2 requirements is less now on PC/AC with IP:22, IT: 1.1 with PEEP: 10 and FIO2 55%. Renal function improving with Cr: 1.42 today from 1.90. Tolerating tube feeds. 02/27 Patient remains sedated with Diprivan and Fentanyl infusion and intubated. Afebrile. 02/28: Remains sedated, orally intubated on mechanical ventilation. Being diuresed with Bumex. Tolerating tube feeds. 03/01: Remains sedated, orally intubated on mechanical ventilation. Being diabetes. Remains on PEEP of 10 and FiO2 60% 03/02 Patient remains sedated with Diprivan and Fentanyl and intubated. On PC/AC with PEEP: 10 and FIO2 80% overnight and sats 93-94%. Afebrile. 03/03: The patient remains on high respiratory requirements PEEP of 10, and FiO2 70%. 03/04: Tmax 99.9. Overnight the patient was noted to have desaturations the patient received a bolus of midazolam and fentanyl for ventilator dyssynchrony. The patient was redosed with Diamox with approximately 2.5 L diuresis in the last 12 hours. The patient continues on an FiO2 of 70% with PEEP of 10 to maintain an O2 sat of 90%. 03/05: Afebrile. Patient's FiO2 remains at 60% to maintain O2sat ranging in 92% . Future plans for tracheostomy discussed with when ventilator requirements are decreased. Patient currently is on a PEEP of 10. Patient receiving multiple doses of diuretics chest x-ray still showing increased vascular congestion. Cardiology following metalazone added to medication regimen per cardiology for diuresis. 03/06: Patient's O2 requirements were increased overnight to FiO2 of 90%. The patient's FiO2 has been decreased now currently to 70% O2 sat is 90% ABG is pending. The patient's diuresis effective, 1 kg weight loss in 24 hours. 03/07: The patient continues to have effective diuresis. The patient's O2 requirements currently FiO2 is 70% to maintain a sat of 90-91%. Discussion with Ms. London yesterday, she would like to discuss with palliative team goals of care. Palliative care consult initiated. 03/08: The patient was less responsive to diuretics today, positive weight balance last 24 hours. The patient was placed on a Lasix infusion, noted occasional PVCs on telemetry. Patient potassium repletion ongoing, schedule potassium PO intake increased to 50 mEq twice a day. Free water flushes placed on hold, was sodium level 145 will continue to monitor. Chest x-ray shows slight improvement. Continued management of ventilator settings ARDS protocol, maintaining PaO2 60 or greater and adjusting vent settings based on PaO2. Sedation vacation attempted today by CLERK ANALYST, GCS 11T. Noted WBC elevation today ID consulted. 03/09: Today the patient was noted to have increasing FiO2 requirements with a PaO2 of 61. FiO2 was increased to 100%, PEEP was gradually increased to 12, then 14. The patient subsequently became hypotensive, likely due to increasing PEEP, but chest x-ray also obtained to rule out pneumothorax which was clear. The patient subsequently was laced on phenylephrine low-dose 20 mcgs which was eventually weaned off. The patient was placed on PEEP at 7 and FiO2 of 100%, sedation was weaned to lower dose. Palliative care also discussed with goals of care and the patient was made DNR. 03/10 noted creatinine elevation last night, Lasix discontinued. Dobutamine initiated per cardiology this morning. The patient continues to have high requirements on a PEEP of 8 and FiO2 of 100% his PaO2 49.2. PEEP has been increased plan to initiate Flolan. 03/11: Tmax 100.5. FRANK resolved with dobutamine infusion, heart rate 110. Microbiology report bacteremia gram-positive cocci and sputum. Patient currently on Diflucan. Will begin Linezolid in the setting of recent FRANK and oliguria, and await further recommendations from infectious disease loss control consultant. Respiratory status deteriorating. The patient was placed on Flolan last night PaO2 67. Patient remains on a PEEP of 10, unable to advance secondary to hypotension. 03/12 Patient remains sedated with Diprivan, Fentanyl and intubated. On Dobutamine 2.5 mics and Flolan. Remains On PC/AC with RR 12, IP:22, IT:1.20, PEEP;10 and FIo2 90%. Afebrile. 03/13 Patient is sedated with Diprivan and Fentanyl and intubated. On PC/AC with PEEP:12, FIO2 80%. Tmax 101.7 Remains on Dobutamine and Flolan. 03/14 Patient remains sedated and intubated. On PC/AC with PEEP:12 and FIO2 100% . T: 101.5 last night. On Flolan off Dobutamine. 03/15 No acute events overnight. Sedated with Diprivan and Fentanyl. On PC/AC with PEEP: 12, FIO2 down to 70%. Tmax 101.6. On Flolan nebs. 03/16 Patient remains sedated and intubated On PC/AC with decrease in FIO2 requirements down to 65% FIO2 with PEEP: 12. Tmax 101.4. On Heparin drip. 03/17 Patient remains sedated and intubated. T: 99.7, heparin drip turned off as patient had bloody secretions with suctioning and Hemoccult was positive. 03/18 No acute events overnight. Remains sedated and intubated. Tmax 102.8. Off heparin drip patient has minimal bloody secretions. 03/19 Patient remains sedated with Diprivan and Fentanyl intubated. Afebrile. Objective Vital Signs Date Time Temp Pulse Resp B/P Pulse Ox O2 Delivery O2 Flow Rate FiO2 03/19/17 06:00 95 03/19/17 04:09 92 90 03/19/17 04:00 98.0 12 92/64 Intake and Output 03/18/17 03/18/17 03/19/17 08:00 16:00 00:00 Intake Total 1773 ml 1150 ml 1210 ml Output Total 945.0 ml 2050 ml 810.0 ml Balance 828.0 ml -900 ml 400.0 ml Result Diagram: 03/19/17 0516 03/19/17 0516 Other Results Laboratory Tests Test 03/19/17 05:16 White Blood Count 11.5 TH/MM3 Red Blood Count 3.94 MIL/MM3 Hemoglobin 11.9 GM/DL Hematocrit 36.3 % Mean Corpuscular Volume 92.2 FL Mean Corpuscular Hemoglobin 30.2 PG Mean Corpuscular Hemoglobin 32.8 % Concent Red Cell Distribution Width 16.1 % Platelet Count 195 TH/MM3 Mean Platelet Volume 10.0 FL Neutrophils (%) (Auto) 90.7 % Lymphocytes (%) (Auto) 4.1 % Monocytes (%) (Auto) 5.0 % Eosinophils (%) (Auto) 0.0 % Basophils (%) (Auto) 0.2 % Neutrophils # (Auto) 10.4 TH/MM3 Lymphocytes # (Auto) 0.5 TH/MM3 Monocytes # (Auto) 0.6 TH/MM3 Eosinophils # (Auto) 0.0 TH/MM3 Basophils # (Auto) 0.0 TH/MM3 CBC Comment AUTO DIFF Sodium Level 150 MEQ/L Potassium Level 4.7 MEQ/L Chloride Level 109 MEQ/L Carbon Dioxide Level 35.7 MEQ/L Anion Gap 5 MEQ/L Blood Urea Nitrogen 53 MG/DL Creatinine 0.76 MG/DL Estimat Glomerular Filtration 102 ML/MIN Rate Random Glucose 126 MG/DL Calcium Level 9.7 MG/DL Phosphorus Level 2.8 MG/DL Magnesium Level 2.7 MG/DL Imaging Last Impressions Chest X-Ray 03/18/17 0000 Signed Impressions: Service Date/Time: Saturday, March 18, 2017 08:43 - CONCLUSION: Left lower lobe consolidation/atelectasis and likely some effusion. Nick Menchaca MD Upper Extremity Ultrasound 03/14/17 0000 Signed Impressions: Service Date/Time: Tuesday, March 14, 2017 18:49 - CONCLUSION: 1. Thrombus throughout the cephalic veins bilaterally. These are superficial venous structures. 2. Questionable minimal thrombus within the left subclavian vein. Garrick Hinton Jr., MD CT Angiography 03/02/17 1206 Signed Impressions: Service Date/Time: Thursday, March 02, 2017 13:46 - CONCLUSION: 1. No pulmonary embolus identified. 2. Small bilateral effusions with significant dependent atelectasis bilaterally. Riley Bob MD Lower Extremity Ultrasound 02/27/17 0000 Signed Impressions: Service Date/Time: Monday, February 27, 2017 08:31 - CONCLUSION: Normal examination. Nick Farrell MD Abdomen X-Ray 02/24/17 0000 Signed Impressions: Service Date/Time: Friday, February 24, 2017 10:43 - CONCLUSION: 1. Nasogastric tube just across the GE junction. 2. Minimal nonspecific bowel gas dilatation. Artur Bob MD FACR Objective Remarks GENERAL: Patient is 66 yo obese male intubated and sedated SKIN: Warm and dry. HEAD: Normocephalic. EYES: No scleral icterus. No injection or drainage. NECK: Supple, trachea midline. No JVD or lymphadenopathy. CARDIOVASCULAR:Tachycardic without murmurs, gallops, or rubs. RESPIRATORY: On mechanical ventilation, orally intubated, Breath sounds equal bilaterally. Few Coarse BS GASTROINTESTINAL: Abdomen soft, non-tender, nondistended. OGT, tube feedings infusing MUSCULOSKELETAL: 2+ bilateral edema in upper extremities. Neuro: Sedated, intubated Date of Removal: Mar 04, 2017 Line: Central Venous Catheter Side: Right A/P Assessment and Plan 1. Acute hypercapnic and hypoxemic respiratory failure. 2. COPD exacerbation. 3. Acute renal failure. 4. Hypernatremia 5. Obstructive sleep apnea and morbid obesity. 6. Ischemic dilated Cardiomyopathy. S/P AICD 03/2015 7. History of coronary artery disease. 8. Gastroesophageal reflux disease. 9. Hypertension. 10. Hyperlipidemia. 11 Pulm edema 12. Acute on chronic systolic and diastolic CHF 13. Pulmonary hypertension 14. Bacteremia Plan: Neuro: On Diprivan and Fentanyl infusion for sedation. Daily sedation vacation when appropriate. CV: Monitor HR and BP keep MAP>65mmHg. Place on Lopressor 12.5mg BID On aspirin 325 milligrams p.o. daily and Plavix 75 mg p.o. daily. Prinivil 5mg daily 01/2017 Echo showed EF 40-45%, nl LV diastolic function, No RWMA Cardiology following-Dr. Cole. Pulm: On PC/AC RR 12, IP:22, IT:1.2 PEEP: 12, FIO2: 90 %, decrease FIO2 as kristie. Continue with vent support and maintain sats above 92%. Check CXR Bronchodilators every 4 hours, Solu-Medrol 40 mg IV BID. Pulm-Dr. Lashell Padron following CTA chest 03/02 showed no PE, small pleural effusions Decrease Flolan nebs 8ml/hr(20,000 ng/ml) : Monitor renal function Is and Os and avoid nephrotoxins. Electrolytes replacement per protocol. Lasix 40mg daily Increase Free water 300 ml Q4, monitor sodium level. GI: On Protonix 40 milligrams IV daily for GI prophylaxis. On TF- Glucerna 1.5 @45ml/hr, no residuals Senna, Colace for bowel regimen, Lactulose 15mg BID, 02/24 KUB abdomen: Minimal non-specific bowel gas dilatation GI is following for anemia and positive Hemoccult. Will need EGD and PEG tube placement per GI ID:Continue with abx per ID(Vancomycin, Levaquin) monitor for signs of infections ( Fever, WBC) WBC trending down 03/16 C-dif PCR negative 03/14: BC: NGTD 03/14: Normal resp tiffany, urine cx: No growth 03/09 Repeat Bld cultures-staph Epi, coag negative staph- likely contaminant 03/09 Repeat sputum culture-staph aureus Heme: Monitor CBC. Endo: SSI with Accu-Chek q. 6-hour for glycemic control. GI prophylaxis with Protonix 40 mg BID and DVT prophylaxis with SCDs, heparin drip on hold for positive Hemoccult. Doppler US UE: 03/14-Thrombus throughout the cephalic veins bilaterally. ? minimal thrombus within the left subclavian vein. Heparin drip turned off as patient had bloody secretions with suctioning ( resolved) and positive Hemoccult. Resume heparin once cleared by GI. Doppler US LE No DVT on 02/27 Dispo: Discussed patient with CLERK ANALYST. Palliative care is following. CCT 30 mins Georgia Ocampo MD Mar 19, 2017 07:12
[2017-03-19 07:45] LABS: BANDS 6 % (0-6); METAMYELOCYTES 2 % (0-1); NEUTROPHIL # MANUAL DIFF 10.5 TH/MM3 (1.8-7.7); PLASMA CELLS 1 % (0-0); PLATELET ESTIMATE SMEAR NORMAL (NORMAL); PLATELET MORPHOLOGY NORMAL (NORMAL); POLYS (SEG NEUTROPHILS) 83 % (16-70); SCAN/DIFF FINAL DIFF MANUAL; WBC DIFF SAMPLE 100
[2017-03-19] MEDS: PANTOPRAZOLE SODIUM 40 MG VIAL IV SCH (07:58)
[2017-03-19] MEDS: DOCUSATE SODIUM 100 MG/10 ML UDC PO SCH ×2 (07:59→20:34)
[2017-03-19] MEDS: FUROSEMIDE 40 MG/4 ML VIAL IV PUSH SCH (07:59)
[2017-03-19] MEDS: ASPIRIN 325 MG TAB PO SCH (07:59)
[2017-03-19] MEDS: SENNOSIDES SYRUP 8.8 MG/5 ML CUP PO SCH (07:59)
[2017-03-19] MEDS: CLOPIDOGREL 75 MG TAB PO SCH (07:59)
[2017-03-19] MEDS: methylPREDNISolone SOD SUCC 40 MG/1 ML VIAL IV PUSH SCH ×2 (07:59→20:34)
[2017-03-19] MEDS: LEVOFLOXACIN 750 MG TAB PO SCH (07:59)
[2017-03-19] MEDS: METOPROLOL TARTRATE 25 MG TAB PO SCH ×2 (08:00→20:54)
[2017-03-19] MEDS: CHLORHEXIDINE 0.12% (ORAL KIT) 15 ML CUP MT SCH ×2 (08:00→20:47)
[2017-03-19] MEDS: LISINOPRIL 5 MG TAB PO SCH (08:00)
--- NOTE | 2017-03-19 09:31 | HHI.IDPN ---
Subjective Subjective Remarks Notes reviewed Temps better On the vent, FiO2 at 80% BP ok Good UO No new (+) BC BC with Staph epidermidis, different susceptibility results Sputum with MSSA WBC lower US BUE has clots in cephalic vein, and possible minimal clot in LSC Antibiotics Vancomycin Levaquin Lines PIV Past Medical History Reviewed Allergies: Coded Allergies: No Known Allergies (Verified , 02/23/17) Objective . Vital Signs Date Time Temp Pulse Resp B/P Pulse Ox O2 Delivery O2 Flow Rate FiO2 03/19/17 08:01 88 80 03/19/17 06:00 95 03/19/17 04:09 92 90 03/19/17 04:00 90 03/19/17 04:00 118 03/19/17 04:00 98.0 118 12 92/64 92 03/19/17 02:00 115 03/19/17 01:09 92 90 03/19/17 00:00 98.0 111 15 119/72 93 03/19/17 00:00 90 03/19/17 00:00 111 03/18/17 22:00 120 03/18/17 20:57 95 90 03/18/17 20:00 124 03/18/17 20:00 90 03/18/17 20:00 99.2 124 18 100/62 91 03/18/17 18:00 120 03/18/17 16:41 94 90 03/18/17 16:00 127 03/18/17 16:00 99.2 127 13 106/63 92 03/18/17 16:00 90 03/18/17 14:14 90 70 03/18/17 14:00 124 03/18/17 12:00 100.0 119 13 106/67 92 03/18/17 12:00 90 03/18/17 12:00 119 03/18/17 11:55 90 70 03/18/17 10:00 120 03/18/17 03/18/17 03/19/17 15:00 23:00 07:00 Intake Total 1150 ml 1210 ml 1265 ml Output Total 2070.0 ml 810.0 ml 695 ml Balance -920.0 ml 400.0 ml 570 ml IV Total 400 ml 337 ml 754 ml Tube Feeding 350 ml 373 ml 331 ml Other 400 ml 500 ml 180 ml Output Urine Total 1800 ml 575 ml 495 ml Stool Total 250 ml 200 ml 200 ml Tube Feeding Residual Discard 20.0 ml 35.0 ml . Laboratory Tests Test 03/18/17 03/19/17 03:51 05:16 White Blood Count 11.7 TH/MM3 11.5 TH/MM3 Red Blood Count 4.01 MIL/MM3 3.94 MIL/MM3 Hemoglobin 12.1 GM/DL 11.9 GM/DL Hematocrit 36.7 % 36.3 % Mean Corpuscular Volume 91.5 FL 92.2 FL Mean Corpuscular Hemoglobin 30.2 PG 30.2 PG Mean Corpuscular Hemoglobin 33.0 % 32.8 % Concent Red Cell Distribution Width 16.3 % 16.1 % Platelet Count 196 TH/MM3 195 TH/MM3 Mean Platelet Volume 10.6 FL 10.0 FL Neutrophils (%) (Auto) 93.8 % 90.7 % Lymphocytes (%) (Auto) 2.6 % 4.1 % Monocytes (%) (Auto) 3.3 % 5.0 % Eosinophils (%) (Auto) 0.0 % 0.0 % Basophils (%) (Auto) 0.3 % 0.2 % Neutrophils # (Auto) 11.0 TH/MM3 10.4 TH/MM3 Lymphocytes # (Auto) 0.3 TH/MM3 0.5 TH/MM3 Monocytes # (Auto) 0.4 TH/MM3 0.6 TH/MM3 Eosinophils # (Auto) 0.0 TH/MM3 0.0 TH/MM3 Basophils # (Auto) 0.0 TH/MM3 0.0 TH/MM3 CBC Comment AUTO DIFF AUTO DIFF Differential Total Cells 100 100 Counted Neutrophils % (Manual) 93 % 83 % Band Neutrophils % 1 % 6 % Lymphocytes % 3 % 3 % Monocytes % 1 % 5 % Neutrophils # (Manual) 11.2 TH/MM3 10.5 TH/MM3 Metamyelocytes 1 % 2 % Myelocytes 1 % Differential Comment FINAL DIFF FINAL DIFF MANUAL MANUAL Platelet Estimate NORMAL NORMAL Platelet Morphology Comment NORMAL NORMAL Plasma Cells 1 % Red Cell Morphology Comment NORMAL Laboratory Tests Test 03/18/17 03/19/17 03:51 05:16 Sodium Level 151 MEQ/L 150 MEQ/L Potassium Level 4.3 MEQ/L 4.7 MEQ/L Chloride Level 110 MEQ/L 109 MEQ/L Carbon Dioxide Level 36.0 MEQ/L 35.7 MEQ/L Anion Gap 5 MEQ/L 5 MEQ/L Blood Urea Nitrogen 56 MG/DL 53 MG/DL Creatinine 0.75 MG/DL 0.76 MG/DL Estimat Glomerular Filtration 104 ML/MIN 102 ML/MIN Rate Random Glucose 140 MG/DL 126 MG/DL Calcium Level 10.0 MG/DL 9.7 MG/DL Phosphorus Level 2.8 MG/DL Magnesium Level 2.7 MG/DL Microbiology Date/Time Procedure Status Source Growth 03/16/17 18:01 Stool Occult Blood (GINGER) - Final Complete Stool Stool HEMOCCULT POSITIVE Imaging Chest X-Ray 03/18/17 0000 Signed Impressions: Service Date/Time: Saturday, March 18, 2017 08:43 - CONCLUSION: Left lower lobe consolidation/atelectasis and likely some effusion. Nick Menchaca MD Chest X-Ray 03/11/17 0600 Signed Impressions: Service Date/Time: Saturday, March 11, 2017 04:03 - CONCLUSION: 1. Bilateral lower lobe atelectasis versus pneumonia. There has been no significant change when compared to the prior exam. Lavell Maciel MD CT Angiography 03/02/17 1206 Signed Impressions: Service Date/Time: Thursday, March 02, 2017 13:46 - CONCLUSION: 1. No pulmonary embolus identified. 2. Small bilateral effusions with significant dependent atelectasis bilaterally. Riley Bob MD Lower Extremity Ultrasound 02/27/17 0000 Signed Impressions: Service Date/Time: Monday, February 27, 2017 08:31 - CONCLUSION: Normal examination. Nick Farrell MD Abdomen X-Ray 02/24/17 0000 Signed Impressions: Service Date/Time: Friday, February 24, 2017 10:43 - CONCLUSION: 1. Nasogastric tube just across the GE junction. 2. Minimal nonspecific bowel gas dilatation. Artur Bob MD FACR Physical Exam GENERAL: sedated, on the vent, not in respiratory distress. SKIN: Warm and moist. No generalized rash. HEENT: [place] conjunctivae. No scleral icterus. Endotracheal tube is in the mouth. NECK: Supple, nontender, no meningeal signs. CARDIOVASCULAR: Regular rate and rhythm without murmurs, gallops, or rubs. His monitor shows atrial flutter RESPIRATORY: Coarse BS kade, few rhonchi GASTROINTESTINAL: Abdomen soft, obese, nondistended. Bowel sounds are present. No reaction to palpation MUSCULOSKELETAL: Lower extremities without clubbing, cyanosis or pedal edema. His upper extremities are edematous. NEUROLOGICAL: Sedated. No Babinski PSYCH: Unable to assess LINE: PIV with no evidence of infection : Kaiser catheter in place, with small amount of sediment Assessment & Plan Remarks IMPRESSION Leukocytosis, etiology? - better - likely reactive, ?due to his pulmonary status, has had increased O2 requirement - ?New infection, he has not been febrile - CXR looks better - ? - has no line - no diarrhea Fevers - ?partly due to vein clots; cephalic are superficial veins - ?drug fevers - temps better, ?since Zosyn stopped Respiratory failure - has known ischemic cardiomyopathy BC with Coag Neg Cindi, no final ID yet - ?significance Known COPD Obesity RECOMMENDATION Follow C/S Continue IV Vanco Continue Levaquin Follow temps Monitor progress D/W Heather Hamilton MD Mar 19, 2017 09:31
[2017-03-19] MEDS: ACETAMINOPHEN 325 MG TAB PO PRN ×2 (11:37→17:27)
[2017-03-19] MEDS ORDERED: METOPROLOL TARTRATE 5 MG/5 ML VIAL IV PUSH ONE (13:00)
--- NOTE | 2017-03-19 16:44 | PD.PN.STU ---
Subjective Remarks Patient sedated on ventilator, minimally responsive. No acute distress. at bedside currently. Objective Vitals Vital Signs Date Time Temp Pulse Resp B/P Pulse Ox O2 Delivery O2 Flow Rate FiO2 03/19/17 16:23 96 70 03/19/17 14:00 127 03/19/17 12:37 21 03/19/17 12:00 75 03/19/17 12:00 127 03/19/17 12:00 100.1 127 22 119/67 89 03/19/17 11:52 91 75 03/19/17 10:00 118 03/19/17 08:01 88 80 03/19/17 08:00 120 03/19/17 08:00 99.5 120 19 95/71 91 03/19/17 08:00 80 03/19/17 06:00 95 03/19/17 04:09 92 90 03/19/17 04:00 90 03/19/17 04:00 118 03/19/17 04:00 98.0 118 12 92/64 92 03/19/17 02:00 115 03/19/17 01:09 92 90 03/19/17 00:00 98.0 111 15 119/72 93 03/19/17 00:00 90 03/19/17 00:00 111 03/18/17 22:00 120 03/18/17 20:57 95 90 03/18/17 20:00 124 03/18/17 20:00 90 03/18/17 20:00 99.2 124 18 100/62 91 03/18/17 18:00 120 03/18/17 16:41 94 90 I/O 03/18/17 03/18/17 03/18/17 03/19/17 03/19/17 03/19/17 07:00 15:00 23:00 07:00 15:00 23:00 Intake Total 1773 ml 1150 ml 1210 ml 1265 ml 1221 ml Output Total 925 ml 2070.0 ml 810.0 ml 695 ml 1335.0 ml Balance 848 ml -920.0 ml 400.0 ml 570 ml -114.0 ml IV Total 891 ml 400 ml 337 ml 754 ml 243 ml Tube Feeding 382 ml 350 ml 373 ml 331 ml 378 ml Other 500 ml 400 ml 500 ml 180 ml 600 ml Output Urine Total 625 ml 1800 ml 575 ml 495 ml 1075 ml Stool Total 250 ml 200 ml 200 ml 225 ml Tube Feeding Residual Discard 20.0 ml 35.0 ml 35.0 ml Drainage Total 300 ml # Bowel Movements 1 Result Diagram: 03/19/1751503/19/17515 Objective Remarks Physical Examination HEENT: Normocephalic; atraumatic; no jaundice. CHEST: OETT to vent. Course breath sounds CARDIAC: tachycardic 127 ABDOMEN: Soft, nondistended, nontender; no hepatosplenomegaly; bowel sounds are present in all four quadrants. EXTREMITIES: Generalized edema. 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 Procedures Medications and IVs Current Medications Medications (Trade) Dose Ordered Sig/Luci Route Start Time Stop Time Status Last Admin Sodium Chloride 2 ml 2 ml UNSCH PRN IVF 02/23/17 13:30 03/17/17 10:06 (Diprivan 1000 Mg/100ml Inj) 100 ml @ 0 mls/hr TITRATE IV 02/23/17 14:30 03/19/17 12:46 (Protonix Inj) 40 mg DAILY IV 02/23/17 17:00 03/19/17 07:58 Miscellaneous Information 1 Q361D XX 02/23/17 16:00 02/23/17 16:00 (Chlorhexidine 2% Cloth) 3 pack Taper DAILY@04 TOP 02/24/17 04:00 02/20/18 03:59 03/19/17 04:00 (Chlorhexidine 2% Cloth) 3 pack UNSCH PRN TOP 02/23/17 16:00 (D50w (Vial) Inj) 25 ml UNSCH PRN IV PUSH 02/23/17 16:00 (Glucagon Inj) 1 mg UNSCH PRN OTHER 02/23/17 16:00 (NovoLIN R SUPPLEMENTAL SCALE) 1 Q6H SQ 02/23/17 17:00 03/17/17 17:00 (Aspirin) 325 mg DAILY PO 02/24/17 09:00 03/19/17 07:59 (Lipitor) 40 mg HS PO 02/23/17 21:00 03/18/17 20:13 (Plavix) 75 mg DAILY PO 02/24/17 09:00 03/19/17 07:59 (Senna Liq) 8.8 mg DAILY PO 02/24/17 09:00 03/19/17 07:59 (Colace Liq) 100 mg Q12HR PO 02/24/17 09:00 03/19/17 07:59 (SoluMEDROL INJ) 40 mg BID IV PUSH 03/01/17 09:00 03/19/17 07:59 Water 250 ml 250 ml Q8HR G-TUBE 03/02/17 14:00 Hold 03/08/17 14:00 (fentaNYL DRIP) 250 ml @ 0 mls/hr TITRATE IV 03/04/17 01:00 03/17/17 18:49 (fentaNYL INJ) 50 mcg Q1H PRN IV PUSH 03/04/17 01:00 03/05/17 00:40 (Pill Splitter) 1 ea UNSCH PRN OTHER 03/06/17 15:00 Lisinopril 5 mg 5 mg DAILY PO 03/09/17 09:00 03/19/17 08:00 Potassium Chloride 100 ml @ 50 mls/hr Q2H PRN IV-CENTRAL 03/08/17 13:30 (KCl 20 Meq Premix Inj) 100 ml @ 50 mls/hr Q2H PRN IV 03/08/17 13:30 03/08/17 14:19 Potassium Bicarb/ Potassium Chloride 50 meq 50 meq UNSCH PRN PO 03/08/17 13:30 Potassium Chloride 100 ml @ 25 mls/hr UNSCH PRN IV-CENTRAL 03/08/17 13:30 Potassium Chloride 100 ml @ 50 mls/hr Q2H PRN IV 03/08/17 13:30 (Magnesium Sulfate Inj/NS Inj) 100 ml @ 50 mls/hr UNSCH PRN IV 03/08/17 13:30 Magnesium Oxide 800 mg 800 mg UNSCH PRN PO 03/08/17 13:30 (Magnesium Sulfate Inj/NS Inj) 100 ml @ 50 mls/hr UNSCH PRN IV 03/08/17 13:30 Potassium Phosphate 2000 mg 2,000 mg Q4H PRN PO 03/08/17 13:30 (Sodium Phosphate Inj/NS 250 ml Inj) 250 ml @ 42 mls/hr UNSCH PRN IV 03/08/17 13:30 (Peridex 0.12% Liq) 15 ml BID@08,20 MT 03/08/17 20:00 03/19/17 08:00 (Brethine Inj) 1 mg UNSCH PRN SQ 03/09/17 15:30 Acetaminophen 650 mg 650 mg UNSCH PRN PO 03/10/17 15:45 03/19/17 11:37 Epoprostenol Sodium 87.5 ml/ Sodium Chloride 100 ml @ 8 mls/hr Q8H NEB 03/10/17 20:00 03/18/17 12:00 (Vancomycin Consult Pharmacy) 0 ml @ 0 mls/hr UNSCH OTHER 03/11/17 13:00 Furosemide 40 mg 40 mg DAILY IV PUSH 03/15/17 09:00 03/19/17 07:59 Heparin Sodium/ Dextrose 250 ml @ 0 mls/hr TITRATE IV 03/15/17 07:45 03/16/17 18:34 (Vancomycin Inj/ NS 500 ml Inj) 517.5 ml @ 250 mls/hr Q24H IV 03/18/17 00:00 03/18/17 23:35 Miscellaneous Information SPECIFIC LAB TO BE JESSE... ONCE ONCE .XX 03/19/17 23:45 03/19/17 23:46 (Levaquin) 750 mg DAILY PO 03/18/17 09:00 03/19/17 07:59 (Free Water) 300 ml Q4HR G-TUBE 03/19/17 08:00 03/19/17 11:37 (Lopressor) 12.5 mg Q12HR PO 03/19/17 09:00 03/19/17 08:00 A/P Discharge Planning ASSESSMENT: - Hemoccult positive stool and melena. Nurse reports dark green/blackish stool. Hemoccult was positive. No maco red active bleeding. There is note of PUD in the EMR. He is on Plavix, ASA and was getting Heparin. His H/H has remained stable. D/W Dr. Gallagher, he said will likely require tracheostomy. HH stable at this time, patient with multiple DVTs however Hemoccult positive, Heparin stopped. Will require EGD tomorrow with peg tube placement. I have discussed the indications/risks/benefits of this with at bedside. She is in understanding and agreeable with plan. - Anemia. 11.9/36.9. Stable. PPI - Acute Resp. Failure, Vent per CCM. Nebs. - CHF, Cardiomyopathy, Pulmonary htn, Pulmonary edema. Cardiology following. EF 40-45%. AICD/PPM. - CAD, HTN, Hyperlipidemia. per CCM. PLAN: - TF as tolerated - Continue protonix to 40mg IV BID - Monitor HH - Transfuse as necessary - EGD and PEG tube placement tomorrow - Will cont. PPI and closely monitor HH, - Supportive care - Pt seen and examined by Dr. Palomares and myself and this note is written on her behalf Amelia Briseno M3 Mar 19, 2017 16:44
--- NOTE | 2017-03-19 17:02 | HHI.GIFU ---
Subjective Remarks Patient sedated on ventilator, minimally responsive. No acute distress. at bedside currently. (RecioRosario Monicajammie RODRÍGUEZ) Objective Vitals I&O Vital Signs Date Time Temp Pulse Resp B/P Pulse Ox O2 Delivery O2 Flow Rate FiO2 03/19/17 16:23 96 70 03/19/17 14:00 127 03/19/17 12:37 21 03/19/17 12:00 75 03/19/17 12:00 127 03/19/17 12:00 100.1 127 22 119/67 89 03/19/17 11:52 91 75 03/19/17 10:00 118 03/19/17 08:01 88 80 03/19/17 08:00 120 03/19/17 08:00 99.5 120 19 95/71 91 03/19/17 08:00 80 03/19/17 06:00 95 03/19/17 04:09 92 90 03/19/17 04:00 90 03/19/17 04:00 118 03/19/17 04:00 98.0 118 12 92/64 92 03/19/17 02:00 115 03/19/17 01:09 92 90 03/19/17 00:00 98.0 111 15 119/72 93 03/19/17 00:00 90 03/19/17 00:00 111 03/18/17 22:00 120 03/18/17 20:57 95 90 03/18/17 20:00 124 03/18/17 20:00 90 03/18/17 20:00 99.2 124 18 100/62 91 03/18/17 18:00 120 I/O 03/18/17 03/18/17 03/18/17 03/19/17 03/19/17 03/19/17 07:00 15:00 23:00 07:00 15:00 23:00 Intake Total 1773 ml 1150 ml 1210 ml 1265 ml 1221 ml Output Total 925 ml 2070.0 ml 810.0 ml 695 ml 1335.0 ml Balance 848 ml -920.0 ml 400.0 ml 570 ml -114.0 ml IV Total 891 ml 400 ml 337 ml 754 ml 243 ml Tube Feeding 382 ml 350 ml 373 ml 331 ml 378 ml Other 500 ml 400 ml 500 ml 180 ml 600 ml Output Urine Total 625 ml 1800 ml 575 ml 495 ml 1075 ml Stool Total 250 ml 200 ml 200 ml 225 ml Tube Feeding Residual Discard 20.0 ml 35.0 ml 35.0 ml Drainage Total 300 ml # Bowel Movements 1 Laboratory Laboratory Tests Test 03/19/17 05:16 White Blood Count 11.5 Red Blood Count 3.94 Hemoglobin 11.9 Hematocrit 36.3 Mean Corpuscular Volume 92.2 Mean Corpuscular Hemoglobin 30.2 Mean Corpuscular Hemoglobin 32.8 Concent Red Cell Distribution Width 16.1 Platelet Count 195 Mean Platelet Volume 10.0 Neutrophils (%) (Auto) 90.7 Lymphocytes (%) (Auto) 4.1 Monocytes (%) (Auto) 5.0 Eosinophils (%) (Auto) 0.0 Basophils (%) (Auto) 0.2 Neutrophils # (Auto) 10.4 Lymphocytes # (Auto) 0.5 Monocytes # (Auto) 0.6 Eosinophils # (Auto) 0.0 Basophils # (Auto) 0.0 CBC Comment AUTO DIFF Differential Total Cells 100 Counted Neutrophils % (Manual) 83 Band Neutrophils % 6 Lymphocytes % 3 Monocytes % 5 Neutrophils # (Manual) 10.5 Metamyelocytes 2 Differential Comment FINAL DIFF MANUAL Plasma Cells 1 Platelet Estimate NORMAL Platelet Morphology Comment NORMAL Red Cell Morphology Comment NORMAL Sodium Level 150 Potassium Level 4.7 Chloride Level 109 Carbon Dioxide Level 35.7 Anion Gap 5 Blood Urea Nitrogen 53 Creatinine 0.76 Estimat Glomerular Filtration 102 Rate Random Glucose 126 Calcium Level 9.7 Phosphorus Level 2.8 Magnesium Level 2.7 Date/Time Procedure Status Source Growth 03/16/17 18:01 Stool Occult Blood (GINGER) - Final Complete Stool Stool HEMOCCULT POSITIVE Imaging Last Impressions Chest X-Ray 03/18/17 0000 Signed Impressions: Service Date/Time: Saturday, March 18, 2017 08:43 - CONCLUSION: Left lower lobe consolidation/atelectasis and likely some effusion. Nick Menchaca MD Upper Extremity Ultrasound 03/14/17 0000 Signed Impressions: Service Date/Time: Tuesday, March 14, 2017 18:49 - CONCLUSION: 1. Thrombus throughout the cephalic veins bilaterally. These are superficial venous structures. 2. Questionable minimal thrombus within the left subclavian vein. Garrick Hinton Jr., MD CT Angiography 03/02/17 1206 Signed Impressions: Service Date/Time: Thursday, March 02, 2017 13:46 - CONCLUSION: 1. No pulmonary embolus identified. 2. Small bilateral effusions with significant dependent atelectasis bilaterally. Riley Bob MD Lower Extremity Ultrasound 02/27/17 0000 Signed Impressions: Service Date/Time: Monday, February 27, 2017 08:31 - CONCLUSION: Normal examination. Nick Farrell MD Abdomen X-Ray 02/24/17 0000 Signed Impressions: Service Date/Time: Friday, February 24, 2017 10:43 - CONCLUSION: 1. Nasogastric tube just across the GE junction. 2. Minimal nonspecific bowel gas dilatation. Artur Bob MD FACR Physical Exam GENERAL: NAD, awake on vent HEENT: Normocephalic. Sandy conjunctiva. No jaundice NECK: Supple CARDIO: Tachycardic without murmurs, gallops, or rubs. RESP: On mechanical ventilation, orally intubated, few coarse BS ABD: +BS, soft, non-tender, nondistended. OGT, tube feedings infusing EXT: 2+ bilateral edema in upper extremities. NEURO: Awake, follows some commands per nursing staff, intubated (Rosario Recio) Assessment and Plan Plan ASSESSMENT: - Hemoccult positive stool and melena. Nurse reports dark green/blackish stool. Hemoccult was positive. No maco red active bleeding. There is note of PUD in the EMR. He is on Plavix, ASA and was getting Heparin for DVT- these are on hold secondary to GI Bleeding. Nurse reports that per [facility], they are unable to restart blood thinners until we evaluate endoscopically. D/W patient's - EGD with PEG tube placement- procedure risks, benefits and she would like to proceed. His H/H has remained stable. She is in understanding and agreeable with plan. - Anemia. 11.9/36.9. Stable. PPI - Acute Resp. Failure, Vent per CCM. Nebs. - CHF, Cardiomyopathy, Pulmonary htn, Pulmonary edema. Cardiology following. EF 40-45%. AICD/PPM. - CAD, HTN, Hyperlipidemia. per CCM. PLAN: - Plan for egd with peg tube placement in am - Obtain consents - NPO after MN - Protonix to 40mg IV BID - Monitor HH - Transfuse as necessary - Supportive care - Pt seen and examined by Dr. Palomares and myself and this note is written on his behalf (Rosario Recio) Physician Comments Patient seen and examined Agree with above Continue with current supportive care Monitor labs Plan for EGD and PEG placement tomorrow (Renny Sullivan MD) Rosario Recio Mar 19, 2017 17:02 Renny Sullivan MD Mar 19, 2017 19:14
[2017-03-19] MEDS: fentaNYL DRIP 250 ML IV SCH (20:35)
[2017-03-19] MEDS: ATORVASTATIN 40 MG TAB PO SCH (20:35)
[2017-03-19] MEDS ORDERED: PHARMACY ORDERED LAB ONE (23:45)
[2017-03-20] VITALS (17 sets, daily range): BP systolic 108–134; BP diastolic 64–77; PULSE 119–128; RESP 13–21; TEMP 100.1–102; O2SAT 88–95
[2017-03-20] MEDS: VANCOMYCIN INJ 1,750 MG in SODIUM CHLORID 0.9% 500 ML INJ 500 ML IV SCH (00:47)
[2017-03-20] MEDS: PROPOFOL 1000 MG/100 ML INJ 100 ML IV SCH ×5 (01:54→23:36)
[2017-03-20] MEDS: FREE WATER G-TUBE SCH ×7 (04:00→23:36)
[2017-03-20] MEDS: CHLORHEXIDINE GLUCONATE 2 % 1 PACK (2 CLOTHS) TOP SCH (04:00)
[2017-03-20 04:26] LABS: BASOPHIL % 0.3 % (0.0-2.0); EOSINOPHIL % 0.1 % (0.0-4.0); HEMATOCRIT 36.7 % (39.0-51.0); LYMPH % 3.2 % (9.0-44.0); LYMPHOCYTE # 0.4 TH/MM3 (1.0-4.8); MEAN CORPUSCULAR HEMOGLOBIN 29.7 PG (27.0-34.0); MEAN CORPUSCULAR HGB CONC 32.2 % (32.0-36.0); MONO % 5.6 % (0.0-8.0); NEUT % 90.8 % (16.0-70.0); PLATELET COUNT 197 TH/MM3 (150-450); RED BLOOD COUNT 3.99 MIL/MM3 (4.50-5.90); RED CELL DISTRIBUTION WIDTH 16.2 % (11.6-17.2); WHITE BLOOD COUNT 13.2 TH/MM3 (4.0-11.0)
[2017-03-20 04:30] LABS: HEMO FLAGS AUTO DIFF
[2017-03-20 04:59] LABS: BICARBONATE 36.6 MEQ/L (21.0-32.0); POTASSIUM 4.5 MEQ/L (3.5-5.1)
[2017-03-20] MEDS: INSULIN NovoLIN REGULAR SUPPLEMENTAL SCALE SQ SCH ×4 (05:00→23:00)
[2017-03-20 05:19] LABS: SCAN/DIFF AUTO DIFF CONFIRMED
--- NOTE | 2017-03-20 06:53 | HHI.CCPN ---
Subjective Remarks/Hospital Course The patient is a 66-year-old male with past medical history of COPD, cardiomyopathy, hypertension, gastroesophageal reflux disease, hyperlipidemia and coronary artery disease. The patient presented to [facility] ED with a 2-week history of progressive worsening shortness of breath. On arrival to the ED he was initially placed on a non-rebreather mask and ABG was performed which showed acute hypercapnic respiratory failure with a pH of 7.14, CO2 121, pAO2 141, bicarb 40, sats 93%. His laboratory data significant for hyperkalemia with potassium level 6.0 and acute renal failure with a BUN of 43 and creatinine 2.07 respectively. The chest x-ray showed cardiomegaly and findings of vascular congestion without overt failure. In the ED the patient was intubated with etomidate and rocuronium and placed on full mechanical ventilation. In addition, he is scheduled to receive 10 units IV regular insulin, 1 amp of D50 and calcium gluconate for hyperkalemia. He received cefepime, azithromycin, Solu-Medrol 125 milligrams IV push and bronchodilator treatment. When seen the patient is on Diprivan infusion for sedation and full mechanical ventilation. Per the patient is not on any oxygen at home and he occasionally smokes cigarettes. 02/24 Patient is intubated and sedated with Diprivan and Fentanyl. Switched to PC/ AC with RR 12, IP:24, IT:1.06, PEEP: 8 and FIO2 100%. CXR this morning showed interval development of bilateral perihilar and lower lung zone airspace opacity he was given Lasix 60mg total overnight. 02/25 Patient remains sedated and intubated with Diprivan and Fentanyl. Afebrile.On PC/AC with RR 12, IP:22, IT:1.10, PEEP:10, FIO2 70%. Afebrile. Renal function worse today with Cr: 1.90 from 1.72 UO: 1150ml in 24 hrs 02/26 No acute events overnight. Sedated with Fentanyl and Diprivan and intubated. Afebrile. His O2 requirements is less now on PC/AC with IP:22, IT: 1.1 with PEEP: 10 and FIO2 55%. Renal function improving with Cr: 1.42 today from 1.90. Tolerating tube feeds. 02/27 Patient remains sedated with Diprivan and Fentanyl infusion and intubated. Afebrile. 02/28: Remains sedated, orally intubated on mechanical ventilation. Being diuresed with Bumex. Tolerating tube feeds. 03/01: Remains sedated, orally intubated on mechanical ventilation. Being diabetes. Remains on PEEP of 10 and FiO2 60% 03/02 Patient remains sedated with Diprivan and Fentanyl and intubated. On PC/AC with PEEP: 10 and FIO2 80% overnight and sats 93-94%. Afebrile. 03/03: The patient remains on high respiratory requirements PEEP of 10, and FiO2 70%. 03/04: Tmax 99.9. Overnight the patient was noted to have desaturations the patient received a bolus of midazolam and fentanyl for ventilator dyssynchrony. The patient was redosed with Diamox with approximately 2.5 L diuresis in the last 12 hours. The patient continues on an FiO2 of 70% with PEEP of 10 to maintain an O2 sat of 90%. 03/05: Afebrile. Patient's FiO2 remains at 60% to maintain O2sat ranging in 92% . Future plans for tracheostomy discussed with when ventilator requirements are decreased. Patient currently is on a PEEP of 10. Patient receiving multiple doses of diuretics chest x-ray still showing increased vascular congestion. Cardiology following metalazone added to medication regimen per cardiology for diuresis. 03/06: Patient's O2 requirements were increased overnight to FiO2 of 90%. The patient's FiO2 has been decreased now currently to 70% O2 sat is 90% ABG is pending. The patient's diuresis effective, 1 kg weight loss in 24 hours. 03/07: The patient continues to have effective diuresis. The patient's O2 requirements currently FiO2 is 70% to maintain a sat of 90-91%. Discussion with Ms. London yesterday, she would like to discuss with palliative team goals of care. Palliative care consult initiated. 03/08: The patient was less responsive to diuretics today, positive weight balance last 24 hours. The patient was placed on a Lasix infusion, noted occasional PVCs on telemetry. Patient potassium repletion ongoing, schedule potassium PO intake increased to 50 mEq twice a day. Free water flushes placed on hold, was sodium level 145 will continue to monitor. Chest x-ray shows slight improvement. Continued management of ventilator settings ARDS protocol, maintaining PaO2 60 or greater and adjusting vent settings based on PaO2. Sedation vacation attempted today by ELECTROMEDICAL EQUIPMENT TECHNICIAN, GCS 11T. Noted WBC elevation today ID consulted. 03/09: Today the patient was noted to have increasing FiO2 requirements with a PaO2 of 61. FiO2 was increased to 100%, PEEP was gradually increased to 12, then 14. The patient subsequently became hypotensive, likely due to increasing PEEP, but chest x-ray also obtained to rule out pneumothorax which was clear. The patient subsequently was laced on phenylephrine low-dose 20 mcgs which was eventually weaned off. The patient was placed on PEEP at 7 and FiO2 of 100%, sedation was weaned to lower dose. Palliative care also discussed with goals of care and the patient was made DNR. 03/10 noted creatinine elevation last night, Lasix discontinued. Dobutamine initiated per cardiology this morning. The patient continues to have high requirements on a PEEP of 8 and FiO2 of 100% his PaO2 49.2. PEEP has been increased plan to initiate Flolan. 03/11: Tmax 100.5. FRANK resolved with dobutamine infusion, heart rate 110. Microbiology report bacteremia gram-positive cocci and sputum. Patient currently on Diflucan. Will begin Linezolid in the setting of recent FRANK and oliguria, and await further recommendations from infectious disease mergers and acquisitions consultant. Respiratory status deteriorating. The patient was placed on Flolan last night PaO2 67. Patient remains on a PEEP of 10, unable to advance secondary to hypotension. 03/12 Patient remains sedated with Diprivan, Fentanyl and intubated. On Dobutamine 2.5 mics and Flolan. Remains On PC/AC with RR 12, IP:22, IT:1.20, PEEP;10 and FIo2 90%. Afebrile. 03/13 Patient is sedated with Diprivan and Fentanyl and intubated. On PC/AC with PEEP:12, FIO2 80%. Tmax 101.7 Remains on Dobutamine and Flolan. 03/14 Patient remains sedated and intubated. On PC/AC with PEEP:12 and FIO2 100% . T: 101.5 last night. On Flolan off Dobutamine. 03/15 No acute events overnight. Sedated with Diprivan and Fentanyl. On PC/AC with PEEP: 12, FIO2 down to 70%. Tmax 101.6. On Flolan nebs. 03/16 Patient remains sedated and intubated On PC/AC with decrease in FIO2 requirements down to 65% FIO2 with PEEP: 12. Tmax 101.4. On Heparin drip. 03/17 Patient remains sedated and intubated. T: 99.7, heparin drip turned off as patient had bloody secretions with suctioning and Hemoccult was positive. 03/18 No acute events overnight. Remains sedated and intubated. Tmax 102.8. Off heparin drip patient has minimal bloody secretions. 03/19 Patient remains sedated with Diprivan and Fentanyl intubated. Afebrile. 03/20 No acute events overnight. Sedated and intubated. Tmax : 100.8. NPO for EGD and PEG tube placement today. Objective Vital Signs Date Time Temp Pulse Resp B/P Pulse Ox O2 Delivery O2 Flow Rate FiO2 03/20/17 06:00 120 03/20/17 04:03 89 70 03/20/17 04:00 100.1 14 116/64 Intake and Output 03/19/17 03/19/17 03/20/17 08:00 16:00 00:00 Intake Total 1265 ml 1221 ml 1102 ml Output Total 730.0 ml 1300 ml 800 ml Balance 535.0 ml -79 ml 302 ml Result Diagram: 03/20/17 0338 03/20/17 0338 Other Results Laboratory Tests Test 03/20/17 03/20/17 00:39 03:38 Vancomycin Level Trough 13.6 MCG/ML White Blood Count 13.2 TH/MM3 Red Blood Count 3.99 MIL/MM3 Hemoglobin 11.8 GM/DL Hematocrit 36.7 % Mean Corpuscular Volume 92.0 FL Mean Corpuscular Hemoglobin 29.7 PG Mean Corpuscular Hemoglobin 32.2 % Concent Red Cell Distribution Width 16.2 % Platelet Count 197 TH/MM3 Mean Platelet Volume 10.0 FL Neutrophils (%) (Auto) 90.8 % Lymphocytes (%) (Auto) 3.2 % Monocytes (%) (Auto) 5.6 % Eosinophils (%) (Auto) 0.1 % Basophils (%) (Auto) 0.3 % Neutrophils # (Auto) 12.0 TH/MM3 Lymphocytes # (Auto) 0.4 TH/MM3 Monocytes # (Auto) 0.7 TH/MM3 Eosinophils # (Auto) 0.0 TH/MM3 Basophils # (Auto) 0.0 TH/MM3 CBC Comment AUTO DIFF Differential Comment AUTO DIFF CONFIRMED Sodium Level 149 MEQ/L Potassium Level 4.5 MEQ/L Chloride Level 109 MEQ/L Carbon Dioxide Level 36.6 MEQ/L Anion Gap 3 MEQ/L Blood Urea Nitrogen 48 MG/DL Creatinine 0.64 MG/DL Estimat Glomerular Filtration 124 ML/MIN Rate Random Glucose 120 MG/DL Calcium Level 9.6 MG/DL Imaging Last Impressions Chest X-Ray 03/18/17 0000 Signed Impressions: Service Date/Time: Saturday, March 18, 2017 08:43 - CONCLUSION: Left lower lobe consolidation/atelectasis and likely some effusion. Nick Menchaca MD Upper Extremity Ultrasound 03/14/17 0000 Signed Impressions: Service Date/Time: Tuesday, March 14, 2017 18:49 - CONCLUSION: 1. Thrombus throughout the cephalic veins bilaterally. These are superficial venous structures. 2. Questionable minimal thrombus within the left subclavian vein. Garrick Hinton Jr., MD CT Angiography 03/02/17 1206 Signed Impressions: Service Date/Time: Thursday, March 02, 2017 13:46 - CONCLUSION: 1. No pulmonary embolus identified. 2. Small bilateral effusions with significant dependent atelectasis bilaterally. Riley Bob MD Lower Extremity Ultrasound 02/27/17 0000 Signed Impressions: Service Date/Time: Monday, February 27, 2017 08:31 - CONCLUSION: Normal examination. Nick Farrell MD Abdomen X-Ray 02/24/17 0000 Signed Impressions: Service Date/Time: Friday, February 24, 2017 10:43 - CONCLUSION: 1. Nasogastric tube just across the GE junction. 2. Minimal nonspecific bowel gas dilatation. Artur Bob MD FACR Objective Remarks GENERAL: Patient is 66 yo obese male intubated and sedated SKIN: Warm and dry. HEAD: Normocephalic. EYES: No scleral icterus. No injection or drainage. NECK: Supple, trachea midline. No JVD or lymphadenopathy. CARDIOVASCULAR:Tachycardic without murmurs, gallops, or rubs. RESPIRATORY: On mechanical ventilation, orally intubated, Breath sounds equal bilaterally. Few Coarse BS GASTROINTESTINAL: Abdomen soft, non-tender, nondistended. OGT, tube feedings infusing MUSCULOSKELETAL: 2+ bilateral edema in upper extremities. Neuro: Sedated, intubated Date of Removal: Mar 04, 2017 Line: Central Venous Catheter Side: Right A/P Assessment and Plan 1. Acute hypercapnic and hypoxemic respiratory failure. 2. COPD exacerbation. 3. Acute renal failure. 4. Hypernatremia 5. Obstructive sleep apnea and morbid obesity. 6. Ischemic dilated Cardiomyopathy. S/P AICD 03/2015 7. History of coronary artery disease. 8. Gastroesophageal reflux disease. 9. Hypertension. 10. Hyperlipidemia. 11 Pulm edema 12. Acute on chronic systolic and diastolic CHF 13. Pulmonary hypertension 14. Bacteremia Plan: Neuro: On Diprivan and Fentanyl infusion for sedation. Daily sedation vacation when appropriate. Monitor neuro status CV: Monitor HR and BP keep MAP>65mmHg. Increase Lopressor 12.5mg BID for rate control. On aspirin 325 milligrams p.o. daily and Plavix 75 mg p.o. daily. Prinivil 5mg daily 01/2017 Echo showed EF 40-45%, nl LV diastolic function, No RWMA Cardiology following-Dr. Cole. Pulm: On PC/AC RR 12, IP:22, IT:1.2 PEEP: 12, FIO2: 70 %, decrease FIO2 as kristie. Continue with vent support and maintain sats above 92%. Bronchodilators every 4 hours, Solu-Medrol 40 mg IV BID. Pulm-Dr. Lashell Padron following CXR: LLL consolidation/Atelectasis CTA chest 03/02 showed no PE, small pleural effusions Decrease Flolan nebs 8ml/hr(20,000 ng/ml) : Monitor renal function Is and Os and avoid nephrotoxins. Electrolytes replacement per protocol. Lasix 40mg daily On Free water 300 ml Q4, monitor sodium level. GI: On Protonix 40 mg IV daily for GI prophylaxis. TF(Glucerna 1.5 @45ml/hr) on hold for EGD/PEG tube placement today Senna, Colace for bowel regimen, 02/24 KUB abdomen: Minimal non-specific bowel gas dilatation GI is following for anemia and positive Hemoccult. ID:Continue with abx per ID(Vancomycin, Levaquin) monitor for signs of infections ( Fever, WBC) 03/16 C-dif PCR negative 03/14: BC: NGTD 03/14: Normal resp tiffany, urine cx: No growth 03/09 Repeat Bld cultures-staph Epi, coag negative staph- likely contaminant 03/09 Repeat sputum culture-staph aureus Heme: Monitor CBC. Endo: SSI with Accu-Chek q. 6-hour for glycemic control. GI prophylaxis with Protonix 40 mg BID and DVT prophylaxis with SCDs, heparin drip on hold for positive Hemoccult. Doppler US UE: 03/14-Thrombus throughout the cephalic veins bilaterally. ? minimal thrombus within the left subclavian vein. Off Heparin drip as patient had bloody secretions with suctioning ( resolved) and positive Hemoccult. Resume heparin once cleared by GI. Doppler US LE No DVT on 02/27 Dispo: Discussed patient with ELECTROMEDICAL EQUIPMENT TECHNICIAN. Palliative care is following. CCT 30 mins Georgia Ocampo MD Mar 20, 2017 06:53
[2017-03-20] MEDS: CHLORHEXIDINE 0.12% (ORAL KIT) 15 ML CUP MT SCH ×2 (07:44→20:53)
[2017-03-20] MEDS: PANTOPRAZOLE SODIUM 40 MG VIAL IV SCH (07:44)
[2017-03-20] MEDS: LEVOFLOXACIN 750 MG TAB PO SCH (07:45)
[2017-03-20] MEDS: methylPREDNISolone SOD SUCC 40 MG/1 ML VIAL IV PUSH SCH ×2 (07:45→20:52)
[2017-03-20] MEDS: FUROSEMIDE 40 MG/4 ML VIAL IV PUSH SCH (07:45)
[2017-03-20] MEDS: ACETAMINOPHEN 325 MG TAB PO PRN ×2 (07:45→12:26)
[2017-03-20] MEDS: DOCUSATE SODIUM 100 MG/10 ML UDC PO SCH ×2 (07:45→20:52)
[2017-03-20] MEDS: METOPROLOL TARTRATE 25 MG TAB PO SCH ×2 (07:45→20:52)
[2017-03-20] MEDS: SENNOSIDES SYRUP 8.8 MG/5 ML CUP PO SCH (07:45)
[2017-03-20] MEDS: CLOPIDOGREL 75 MG TAB PO SCH (07:46)
[2017-03-20] MEDS: LISINOPRIL 5 MG TAB PO SCH (07:46)
[2017-03-20] MEDS: ASPIRIN 325 MG TAB PO SCH (07:46)
[2017-03-20] MEDS: EPOPROSTENOL NEB SOLUTION 50 NG/KG/MIN 100 ML NEB SCH ×2 (08:41)
--- NOTE | 2017-03-20 09:32 | HHI.IDPN ---
Subjective Subjective Remarks Notes reviewed Temps low grade On the vent, FiO2 at 60% BP ok Good UO For PEG placement No new (+) BC BC with Staph epidermidis, different susceptibility results Sputum with MSSA WBC lower US BUE has clots in cephalic vein, and possible minimal clot in LSC Antibiotics Vancomycin Levaquin Lines PIV Past Medical History Reviewed Allergies: Coded Allergies: No Known Allergies (Verified , 02/23/17) Objective . Vital Signs Date Time Temp Pulse Resp B/P Pulse Ox O2 Delivery O2 Flow Rate FiO2 03/20/17 08:19 93 60 03/20/17 08:00 126 03/20/17 06:00 120 03/20/17 04:03 89 70 03/20/17 04:00 70 03/20/17 04:00 100.1 126 14 116/64 90 03/20/17 04:00 126 03/20/17 02:00 119 03/20/17 01:03 88 70 03/20/17 00:00 100.8 122 14 119/72 89 03/20/17 00:00 122 03/20/17 00:00 70 03/19/17 22:15 89 70 03/19/17 22:00 124 03/19/17 20:00 100.6 130 18 113/74 94 03/19/17 20:00 70 03/19/17 20:00 130 03/19/17 19:50 91 70 03/19/17 18:27 20 03/19/17 18:00 129 03/19/17 16:23 96 70 03/19/17 16:00 75 03/19/17 16:00 129 03/19/17 16:00 100.8 129 20 116/62 92 03/19/17 14:00 127 03/19/17 12:00 75 03/19/17 12:00 127 03/19/17 12:00 100.1 127 22 119/67 89 03/19/17 11:52 91 75 03/19/17 10:00 118 03/19/17 03/19/17 03/20/17 15:00 23:00 07:00 Intake Total 1221 ml 1102 ml 876 ml Output Total 1335.0 ml 800 ml 550 ml Balance -114.0 ml 302 ml 326 ml IV Total 243 ml 348 ml 752 ml Tube Feeding 378 ml 454 ml 64 ml Other 600 ml 300 ml 60 ml Output Urine Total 1075 ml 600 ml 500 ml Stool Total 225 ml 200 ml 50 ml Tube Feeding Residual Discard 35.0 ml . Laboratory Tests Test 03/19/17 03/20/17 05:16 03:38 White Blood Count 11.5 TH/MM3 13.2 TH/MM3 Red Blood Count 3.94 MIL/MM3 3.99 MIL/MM3 Hemoglobin 11.9 GM/DL 11.8 GM/DL Hematocrit 36.3 % 36.7 % Mean Corpuscular Volume 92.2 FL 92.0 FL Mean Corpuscular Hemoglobin 30.2 PG 29.7 PG Mean Corpuscular Hemoglobin 32.8 % 32.2 % Concent Red Cell Distribution Width 16.1 % 16.2 % Platelet Count 195 TH/MM3 197 TH/MM3 Mean Platelet Volume 10.0 FL 10.0 FL Neutrophils (%) (Auto) 90.7 % 90.8 % Lymphocytes (%) (Auto) 4.1 % 3.2 % Monocytes (%) (Auto) 5.0 % 5.6 % Eosinophils (%) (Auto) 0.0 % 0.1 % Basophils (%) (Auto) 0.2 % 0.3 % Neutrophils # (Auto) 10.4 TH/MM3 12.0 TH/MM3 Lymphocytes # (Auto) 0.5 TH/MM3 0.4 TH/MM3 Monocytes # (Auto) 0.6 TH/MM3 0.7 TH/MM3 Eosinophils # (Auto) 0.0 TH/MM3 0.0 TH/MM3 Basophils # (Auto) 0.0 TH/MM3 0.0 TH/MM3 CBC Comment AUTO DIFF AUTO DIFF Differential Total Cells 100 Counted Neutrophils % (Manual) 83 % Band Neutrophils % 6 % Lymphocytes % 3 % Monocytes % 5 % Neutrophils # (Manual) 10.5 TH/MM3 Metamyelocytes 2 % Differential Comment FINAL DIFF AUTO DIFF MANUAL CONFIRMED Plasma Cells 1 % Platelet Estimate NORMAL Platelet Morphology Comment NORMAL Red Cell Morphology Comment NORMAL Laboratory Tests Test 03/19/17 03/20/17 05:16 03:38 Sodium Level 150 MEQ/L 149 MEQ/L Potassium Level 4.7 MEQ/L 4.5 MEQ/L Chloride Level 109 MEQ/L 109 MEQ/L Carbon Dioxide Level 35.7 MEQ/L 36.6 MEQ/L Anion Gap 5 MEQ/L 3 MEQ/L Blood Urea Nitrogen 53 MG/DL 48 MG/DL Creatinine 0.76 MG/DL 0.64 MG/DL Estimat Glomerular Filtration 102 ML/MIN 124 ML/MIN Rate Random Glucose 126 MG/DL 120 MG/DL Calcium Level 9.7 MG/DL 9.6 MG/DL Phosphorus Level 2.8 MG/DL Magnesium Level 2.7 MG/DL Imaging Chest X-Ray 03/18/17 0000 Signed Impressions: Service Date/Time: Saturday, March 18, 2017 08:43 - CONCLUSION: Left lower lobe consolidation/atelectasis and likely some effusion. Nick Menchaca MD Chest X-Ray 03/11/17 0600 Signed Impressions: Service Date/Time: Saturday, March 11, 2017 04:03 - CONCLUSION: 1. Bilateral lower lobe atelectasis versus pneumonia. There has been no significant change when compared to the prior exam. Lavell Maciel MD CT Angiography 03/02/17 1206 Signed Impressions: Service Date/Time: Thursday, March 02, 2017 13:46 - CONCLUSION: 1. No pulmonary embolus identified. 2. Small bilateral effusions with significant dependent atelectasis bilaterally. Riley Bob MD Lower Extremity Ultrasound 02/27/17 0000 Signed Impressions: Service Date/Time: Monday, February 27, 2017 08:31 - CONCLUSION: Normal examination. Nick Farrell MD Abdomen X-Ray 02/24/17 0000 Signed Impressions: Service Date/Time: Friday, February 24, 2017 10:43 - CONCLUSION: 1. Nasogastric tube just across the GE junction. 2. Minimal nonspecific bowel gas dilatation. Artur Bob MD FACR Physical Exam GENERAL: sedated, on the vent, not in respiratory distress. SKIN: Warm and moist. No generalized rash. HEENT: [place] conjunctivae. No scleral icterus. Endotracheal tube is in the mouth. NECK: Supple, nontender, no meningeal signs. CARDIOVASCULAR: Regular rate and rhythm without murmurs, gallops, or rubs. His monitor shows atrial flutter RESPIRATORY: Coarse BS kade, few rhonchi GASTROINTESTINAL: Abdomen soft, obese, nondistended. Bowel sounds are present. No reaction to palpation MUSCULOSKELETAL: Lower extremities without clubbing, cyanosis or pedal edema. BUE are edematous. NEUROLOGICAL: Sedated. No Babinski PSYCH: Unable to assess LINE: PIV with no evidence of infection : Kaiser catheter in place, with small amount of sediment Assessment & Plan Remarks IMPRESSION Leukocytosis, etiology? - better - likely reactive, ?due to his pulmonary status, has had increased O2 requirement - ?New infection, he has not been febrile - CXR looks better - ? - has no line - no diarrhea Fevers - ?partly due to vein clots; cephalic are superficial veins - ?drug fevers - temps better, ?since Zosyn stopped Respiratory failure - has known ischemic cardiomyopathy BC with Coag Neg Cindi, no final ID yet - ?significance Known COPD Obesity RECOMMENDATION Follow C/S Continue IV Vanco Continue Levaquin Follow temps Monitor progress Weaning per CCM For EGD, PEG today Heather Young MD Mar 20, 2017 09:32
[2017-03-20] MEDS ORDERED: EPOPROSTENOL NEB SOLUTION 20 NG/KG/MIN 100 ML NEB SCH ×2 (12:00)
[2017-03-20] MEDS ORDERED: PROPOFOL 200 MG/20 ML AMP IV ONE (16:21)
--- NOTE | 2017-03-20 16:29 | PD.PROCEDR ---
GI Procedure REFERRING PHYSICIAN Dr. law PROCEDURE PERFORMED EGD with PEG placement INDICATION FOR PROCEDURE Respiratory failure dysphagia and anemia and guaiac-positive stools PROCEDURE: The procedure, risks and benefits were discussed with Mr. London and informed consent was obtained. Anesthesia sedated him with Diprivan. He was placed in the left lateral decubitus position. EGD: The Pentax videoscope was introduced through the oropharynx and advanced to the second portion of the duodenum under direct visualization. Retroflexion was performed in the stomach. FINDINGS: The esophagus this was normal The stomach this was normal The duodenum this was normal Following the evaluation of the stomach and the duodenum the stomach was insufflated with air and the area of PEG placement was identified through indentation and transillumination the area was prepped and draped in usual fashion 5 cc of lidocaine were injected locally a small incision was made then an Angiocath was passed into the stomach through which a guidewire was passed this was retrieved with the scope into that a PEG tube was attached and pulled into place and thereafter secured in usual fashion The patient tolerated procedure well and there are no immediate complications ESTIMATED BLOOD LOSS: None SPECIMENS REMOVED: None COMPLICATIONS: None IMPRESSION: Normal EGD Successful PEG placement PLAN: 1. May use PEG tube for medications today 2. May start feeding tomorrow 3. May obtain nutritional consult for tube feeding 4. Flush tube with 50 cc of water every 4-6 hours 5. Always flush tube after feedings 6. Apply abdominal binder as necessary 7. Clamp G-tube after use and flush. Renyn Sullivan MD Mar 20, 2017 16:29
[2017-03-20 19:56] LABS: APTT (PATIENT) 21.9 SEC (24.3-30.1)
[2017-03-20] MEDS ORDERED: EPOPROSTENOL NEB SOLUTION 10 NG/KG/MIN 100 ML NEB SCH ×2 (20:00)
[2017-03-20] MEDS: HEPARIN-D5W INJ 250 ML IV SCH (20:52)
[2017-03-20] MEDS: ATORVASTATIN 40 MG TAB PO SCH (20:53)
[2017-03-20] MEDS: VANCOMYCIN INJ 2,000 MG in SODIUM CHLORID 0.9% 500 ML INJ 500 ML IV SCH (23:36)
[2017-03-21] VITALS (19 sets, daily range): BP systolic 97–147; BP diastolic 59–88; PULSE 94–124; RESP 12–34; TEMP 98.3–100.5; O2SAT 88–93
[2017-03-21] MEDS: fentaNYL DRIP 250 ML IV SCH (00:17)
[2017-03-21 03:27] LABS: AUTOMATED NEUTROPHIL # 11.2 TH/MM3 (1.8-7.7); BASOPHIL % 0.2 % (0.0-2.0); EOSINOPHIL % 0.1 % (0.0-4.0); LYMPH % 2.6 % (9.0-44.0); LYMPHOCYTE # 0.3 TH/MM3 (1.0-4.8); MEAN CORPUSCULAR HEMOGLOBIN 29.1 PG (27.0-34.0); MEAN CORPUSCULAR HGB CONC 31.7 % (32.0-36.0); NEUT % 92.1 % (16.0-70.0); PLATELET COUNT 171 TH/MM3 (150-450); RED CELL DISTRIBUTION WIDTH 16.5 % (11.6-17.2); WHITE BLOOD COUNT 12.2 TH/MM3 (4.0-11.0)
[2017-03-21 03:44] LABS: APTT (PATIENT) 45.5 SEC (24.3-30.1)
--- NOTE | 2017-03-21 03:46 | RADRPT ---
EXAM DATE/TIME: 03/21/2017 02:18 [place] COMPARISON: CHEST SINGLE AP, March 18, 2017, 8:43. INDICATIONS : Short of breath. MEDICAL HISTORY : Chronic obstructive pulmonary disease. Myocardial infarction. Hypercholesterolemia. Emphysema. Conges tive heart failure. SURGICAL HISTORY : Pacemaker. CABG. ENCOUNTER: Subsequent ACUITY: 3 weeks PAIN SCORE: Non-responsive. LOCATION: Bilateral chest FINDINGS: The endotracheal tube remains in place. It appears the NG tube has been removed. The right lung is cl ear and well-aerated. There is an infiltrate in the left lung base. This is about the same compared t o the prior study. No pneumothorax. Heart size is enlarged but stable. No significant pleural effusio ns. CONCLUSION: Left lower lung infiltrate. Otherwise, no significant change. Remington Meng MD on March 21, 2017 at 3:44 Board Certified Radiologist. This report was verified electronically.
[2017-03-21] MEDS: CHLORHEXIDINE GLUCONATE 2 % 1 PACK (2 CLOTHS) TOP SCH (04:00)
[2017-03-21] MEDS: FREE WATER G-TUBE SCH ×5 (04:00→20:00)
[2017-03-21 04:03] LABS: HEMO FLAGS AUTO DIFF
[2017-03-21 04:32] LABS: SCAN/DIFF AUTO DIFF CONFIRMED
[2017-03-21] MEDS: PROPOFOL 1000 MG/100 ML INJ 100 ML IV SCH ×4 (04:43→22:50)
[2017-03-21] MEDS: INSULIN NovoLIN REGULAR SUPPLEMENTAL SCALE SQ SCH ×4 (04:43→23:00)
--- NOTE | 2017-03-21 08:35 | HHI.GIFU ---
Subjective Remarks Patient resting in bed. Sedated on the ventilator. No active GI bleeding. Tube feedings are on hold. Heparin was restarted and there has not been any active bleeding. (Rosario Recio) Objective Vitals I&O Vital Signs Date Time Temp Pulse Resp B/P Pulse Ox O2 Delivery O2 Flow Rate FiO2 03/21/17 06:00 95 03/21/17 04:26 90 55 03/21/17 04:00 104 03/21/17 04:00 99.8 104 12 118/59 92 03/21/17 04:00 55 03/21/17 02:00 106 03/21/17 01:32 90 55 03/21/17 00:00 99.8 104 12 97/65 88 03/21/17 00:00 104 03/21/17 00:00 55 03/20/17 22:00 128 03/20/17 22:00 95 55 03/20/17 20:00 94 55 03/20/17 20:00 128 03/20/17 20:00 55 03/20/17 20:00 100.1 128 13 134/76 92 03/20/17 18:00 128 03/20/17 16:00 55 03/20/17 16:00 119 03/20/17 16:00 100.8 123 21 108/77 94 03/20/17 16:00 119 03/20/17 15:55 93 60 03/20/17 14:00 119 03/20/17 13:26 21 03/20/17 12:00 102.0 125 21 124/74 92 03/20/17 12:00 125 03/20/17 12:00 60 03/20/17 11:42 92 60 03/20/17 10:00 126 I/O 03/20/17 03/20/17 03/20/17 03/21/17 03/21/17 03/21/17 07:00 15:00 23:00 07:00 15:00 23:00 Intake Total 876 ml 482 ml 386 ml 1116 ml Output Total 550 ml 1000 ml 475 ml 400 ml Balance 326 ml -518 ml -89 ml 716 ml IV Total 752 ml 362 ml 266 ml 916 ml Tube Feeding 64 ml 0 ml 0 ml Other 60 ml 120 ml 120 ml 200 ml Output Urine Total 500 ml 950 ml 450 ml 350 ml Stool Total 50 ml 50 ml 25 ml 50 ml Laboratory Laboratory Tests Test 03/20/17 03/21/17 19:26 03:02 Activated Partial 21.9 45.5 Thromboplast Time White Blood Count 12.2 Red Blood Count 3.80 Hemoglobin 11.1 Hematocrit 35.0 Mean Corpuscular Volume 92.0 Mean Corpuscular Hemoglobin 29.1 Mean Corpuscular Hemoglobin 31.7 Concent Red Cell Distribution Width 16.5 Platelet Count 171 Mean Platelet Volume 9.8 Neutrophils (%) (Auto) 92.1 Lymphocytes (%) (Auto) 2.6 Monocytes (%) (Auto) 5.0 Eosinophils (%) (Auto) 0.1 Basophils (%) (Auto) 0.2 Neutrophils # (Auto) 11.2 Lymphocytes # (Auto) 0.3 Monocytes # (Auto) 0.6 Eosinophils # (Auto) 0.0 Basophils # (Auto) 0.0 CBC Comment AUTO DIFF Differential Comment AUTO DIFF CONFIRMED Sodium Level 150 Potassium Level 4.0 Chloride Level 110 Carbon Dioxide Level 35.0 Anion Gap 5 Blood Urea Nitrogen 40 Creatinine 0.62 Estimat Glomerular Filtration 129 Rate Random Glucose 119 Calcium Level 9.7 Date/Time Procedure Status Source Growth 03/16/17 18:01 Stool Occult Blood (GINGER) - Final Complete Stool Stool HEMOCCULT POSITIVE Imaging Last Impressions Chest X-Ray 03/21/17 0000 Signed Impressions: Service Date/Time: Tuesday, March 21, 2017 02:18 - CONCLUSION: Left lower lung infiltrate. Otherwise, no significant change. Remington Meng MD Upper Extremity Ultrasound 03/14/17 0000 Signed Impressions: Service Date/Time: Tuesday, March 14, 2017 18:49 - CONCLUSION: 1. Thrombus throughout the cephalic veins bilaterally. These are superficial venous structures. 2. Questionable minimal thrombus within the left subclavian vein. Garrick Hinton Jr., MD CT Angiography 03/02/17 1206 Signed Impressions: Service Date/Time: Thursday, March 02, 2017 13:46 - CONCLUSION: 1. No pulmonary embolus identified. 2. Small bilateral effusions with significant dependent atelectasis bilaterally. Riley Bob MD Lower Extremity Ultrasound 02/27/17 0000 Signed Impressions: Service Date/Time: Monday, February 27, 2017 08:31 - CONCLUSION: Normal examination. Nick Farrell MD Abdomen X-Ray 02/24/17 0000 Signed Impressions: Service Date/Time: Friday, February 24, 2017 10:43 - CONCLUSION: 1. Nasogastric tube just across the GE junction. 2. Minimal nonspecific bowel gas dilatation. Artur Bob MD FACR Physical Exam HEENT: Normocephalic. [place] conjunctiva. No jaundice CARDIO: RRR without murmurs, gallops, or rubs. RESP: On mechanical ventilation, orally intubated, Coarse BS ABD: +BS, soft, non-tender, nondistended. OGT-clamped EXT: Generalized edema NEURO: Sedated on ventilator (Rosario Recio) Assessment and Plan Plan ASSESSMENT: - Hemoccult positive stool and melena. Nurse reports dark green/blackish stool. Hemoccult was positive. No maco red active bleeding. There is note of PUD in the EMR. He has been on Plavix, ASA and was getting Heparin for DVT. S/P EGD with PEG tube placement (03/21/17)----> Normal EGD, Successful PEG placement. No active bleeding. PPI. HH stable 11.1/35.0. - Anemia. 11.1/35.0. Stable. PPI - Acute Resp. Failure, Vent per CCM. Nebs. - CHF, Cardiomyopathy, Pulmonary htn, Pulmonary edema. Cardiology following. EF 40-45%. AICD/PPM. - CAD, HTN, Hyperlipidemia. per CCM. PLAN: - Okay to resume TF Glucerna 1.5 at 45cc/hr - Protonix to 40mg IV BID - Monitor HH - Transfuse as necessary - May use PEG tube for medications today - May start feeding tomorrow - May obtain nutritional consult for tube feeding - Flush tube with 50 cc of water every 4-6 hours - Always flush tube after feedings - Apply abdominal binder as necessary - Clamp G-tube after use and flush. - GI will sign off, please reconsult as needed - Pt seen and examined by Dr. Johnson and myself and this note is written on his behalf (Rosario Recio) Physician Comments Patient seen and examined Agree with above Continue with current supportive care Monitor labs No further recommendations from a GI standpoint we will sign off (Renny Sullivan MD) Rosario Recio [employer] TE[employer] AND INSPECTOR Mar 21, 2017 08:35 Renny Sullivan MD Mar 21, 2017 21:28
[2017-03-21] MEDS: METOPROLOL TARTRATE 25 MG TAB PO SCH ×2 (08:47→20:39)
[2017-03-21] MEDS: LISINOPRIL 5 MG TAB PO SCH (08:47)
[2017-03-21] MEDS: CLOPIDOGREL 75 MG TAB PO SCH (08:47)
[2017-03-21] MEDS: LEVOFLOXACIN 750 MG TAB PO SCH (08:47)
[2017-03-21] MEDS: ASPIRIN 325 MG TAB PO SCH (08:47)
[2017-03-21] MEDS: DOCUSATE SODIUM 100 MG/10 ML UDC PO SCH ×2 (08:48→20:39)
[2017-03-21] MEDS: FUROSEMIDE 40 MG/4 ML VIAL IV PUSH SCH (08:48)
[2017-03-21] MEDS: SENNOSIDES SYRUP 8.8 MG/5 ML CUP PO SCH (08:48)
[2017-03-21] MEDS: PANTOPRAZOLE SODIUM 40 MG VIAL IV SCH (08:48)
[2017-03-21] MEDS: methylPREDNISolone SOD SUCC 40 MG/1 ML VIAL IV PUSH SCH ×2 (08:48→20:38)
[2017-03-21] MEDS: CHLORHEXIDINE 0.12% (ORAL KIT) 15 ML CUP MT SCH ×2 (08:49→20:37)
--- NOTE | 2017-03-21 10:19 | HHI.IDPN ---
Subjective Subjective Remarks Notes reviewed Temps low grade S/P PEG 03/20 On the vent, FiO2 at 55%, PEEP 12 BP ok Good UO No new (+) BC BC with Staph epidermidis, different susceptibility results Sputum with MSSA CXR stable infiltrates US BUE has clots in cephalic vein, and possible minimal clot in LSC Antibiotics Vancomycin Levaquin Lines PIV Past Medical History Reviewed Allergies: Coded Allergies: No Known Allergies (Verified , 02/23/17) Objective . Vital Signs Date Time Temp Pulse Resp B/P Pulse Ox O2 Delivery O2 Flow Rate FiO2 03/21/17 08:24 92 55 03/21/17 08:00 100.5 94 12 119/63 92 03/21/17 08:00 55 03/21/17 06:00 95 03/21/17 04:26 90 55 03/21/17 04:00 104 03/21/17 04:00 99.8 104 12 118/59 92 03/21/17 04:00 55 03/21/17 02:00 106 03/21/17 01:32 90 55 03/21/17 00:00 99.8 104 12 97/65 88 03/21/17 00:00 104 03/21/17 00:00 55 03/20/17 22:00 128 03/20/17 22:00 95 55 03/20/17 20:00 94 55 03/20/17 20:00 128 03/20/17 20:00 55 03/20/17 20:00 100.1 128 13 134/76 92 03/20/17 18:00 128 03/20/17 16:00 55 03/20/17 16:00 119 03/20/17 16:00 100.8 123 21 108/77 94 03/20/17 16:00 119 03/20/17 15:55 93 60 03/20/17 14:00 119 03/20/17 13:26 21 03/20/17 12:00 102.0 125 21 124/74 92 03/20/17 12:00 125 03/20/17 12:00 60 03/20/17 11:42 92 60 03/20/17 03/20/17 03/21/17 15:00 23:00 07:00 Intake Total 482 ml 386 ml 1116 ml Output Total 1000 ml 475 ml 400 ml Balance -518 ml -89 ml 716 ml IV Total 362 ml 266 ml 916 ml Tube Feeding 0 ml 0 ml Other 120 ml 120 ml 200 ml Output Urine Total 950 ml 450 ml 350 ml Stool Total 50 ml 25 ml 50 ml . Laboratory Tests Test 03/20/17 03/21/17 03:38 03:02 White Blood Count 13.2 TH/MM3 12.2 TH/MM3 Red Blood Count 3.99 MIL/MM3 3.80 MIL/MM3 Hemoglobin 11.8 GM/DL 11.1 GM/DL Hematocrit 36.7 % 35.0 % Mean Corpuscular Volume 92.0 FL 92.0 FL Mean Corpuscular Hemoglobin 29.7 PG 29.1 PG Mean Corpuscular Hemoglobin 32.2 % 31.7 % Concent Red Cell Distribution Width 16.2 % 16.5 % Platelet Count 197 TH/MM3 171 TH/MM3 Mean Platelet Volume 10.0 FL 9.8 FL Neutrophils (%) (Auto) 90.8 % 92.1 % Lymphocytes (%) (Auto) 3.2 % 2.6 % Monocytes (%) (Auto) 5.6 % 5.0 % Eosinophils (%) (Auto) 0.1 % 0.1 % Basophils (%) (Auto) 0.3 % 0.2 % Neutrophils # (Auto) 12.0 TH/MM3 11.2 TH/MM3 Lymphocytes # (Auto) 0.4 TH/MM3 0.3 TH/MM3 Monocytes # (Auto) 0.7 TH/MM3 0.6 TH/MM3 Eosinophils # (Auto) 0.0 TH/MM3 0.0 TH/MM3 Basophils # (Auto) 0.0 TH/MM3 0.0 TH/MM3 CBC Comment AUTO DIFF AUTO DIFF Differential Comment AUTO DIFF AUTO DIFF CONFIRMED CONFIRMED Laboratory Tests Test 03/20/17 03/21/17 03:38 03:02 Sodium Level 149 MEQ/L 150 MEQ/L Potassium Level 4.5 MEQ/L 4.0 MEQ/L Chloride Level 109 MEQ/L 110 MEQ/L Carbon Dioxide Level 36.6 MEQ/L 35.0 MEQ/L Anion Gap 3 MEQ/L 5 MEQ/L Blood Urea Nitrogen 48 MG/DL 40 MG/DL Creatinine 0.64 MG/DL 0.62 MG/DL Estimat Glomerular Filtration 124 ML/MIN 129 ML/MIN Rate Random Glucose 120 MG/DL 119 MG/DL Calcium Level 9.6 MG/DL 9.7 MG/DL Imaging Chest X-Ray 03/18/17 0000 Signed Impressions: Service Date/Time: Saturday, March 18, 2017 08:43 - CONCLUSION: Left lower lobe consolidation/atelectasis and likely some effusion. Nick Menchaca MD Chest X-Ray 03/11/17 0600 Signed Impressions: Service Date/Time: Saturday, March 11, 2017 04:03 - CONCLUSION: 1. Bilateral lower lobe atelectasis versus pneumonia. There has been no significant change when compared to the prior exam. Lavell Maciel MD CT Angiography 03/02/17 1206 Signed Impressions: Service Date/Time: Thursday, March 02, 2017 13:46 - CONCLUSION: 1. No pulmonary embolus identified. 2. Small bilateral effusions with significant dependent atelectasis bilaterally. Riley Bob MD Lower Extremity Ultrasound 02/27/17 0000 Signed Impressions: Service Date/Time: Monday, February 27, 2017 08:31 - CONCLUSION: Normal examination. Nick Farrell MD Abdomen X-Ray 02/24/17 0000 Signed Impressions: Service Date/Time: Friday, February 24, 2017 10:43 - CONCLUSION: 1. Nasogastric tube just across the GE junction. 2. Minimal nonspecific bowel gas dilatation. Artur Bob MD FACR Physical Exam GENERAL: awake, on the vent, not in respiratory distress. Following simple commands SKIN: Warm and moist. No generalized rash. HEENT: [place] conjunctivae. No scleral icterus. Endotracheal tube is in the mouth. NECK: Supple, nontender, no meningeal signs. CARDIOVASCULAR: Regular rate and rhythm without murmurs, gallops, or rubs. His monitor shows atrial flutter RESPIRATORY: Coarse BS kade, few rhonchi GASTROINTESTINAL: Abdomen soft, obese, nondistended. Bowel sounds are present. Not tender. MUSCULOSKELETAL: Lower extremities without clubbing, cyanosis or pedal edema. BUE are edematous. 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 - persistent Fevers - ?partly due to vein clots; cephalic are superficial veins - ?drug fevers - intermittent Respiratory failure - has known ischemic cardiomyopathy BC with Coag Neg STaph - ?significance Known COPD Obesity RECOMMENDATION Follow C/S Continue IV Vanco Continue Levaquin If stable, will D/C Abx next day or 2 Follow temps Monitor progress Weaning per [facility] Heather Young MD Mar 21, 2017 10:19
[2017-03-21] MEDS: HEPARIN-D5W INJ 250 ML IV SCH ×2 (10:23→22:50)
[2017-03-21 11:10] LABS: BLOOD GAS BASE EXCESS 8.5 mmol/L (-2-2); BLOOD GAS CARBOXYHEMOGLOBIN 1.6 % (0-4); BLOOD GAS HCO3 33 mmol/L (22-26); BLOOD GAS METHEMOGLOBIN 1.2 % (0-2); BLOOD GAS O2 HGB SATURATION 86 % (90-100); BLOOD GAS OXYGEN CONTENT 19.5 Vol % (12.0-20.0); BLOOD GAS PCO2 47 mmHg (38-42); BLOOD GAS PO2 58 mmHg (61-120); BLOOD GAS TOTAL HGB 16.2 G/DL (12.0-16.0); CRITICAL VALUE YES; DRAW SITE RT RADIAL; FIO2 55 %; NUMBER OF ARTERIAL PUNCTURES 1; OXYGEN DEVICE VENTILATOR; STAT NO; TEMP CORR TO 98.6; ULNAR PULSE PRESENT
--- NOTE | 2017-03-21 11:24 | HHI.CCPN ---
Subjective Remarks/Hospital Course The patient is a 66-year-old male with past medical history of COPD, cardiomyopathy, hypertension, gastroesophageal reflux disease, hyperlipidemia and coronary artery disease. The patient presented to [facility] ED with a 2-week history of progressive worsening shortness of breath. On arrival to the ED he was initially placed on a non-rebreather mask and ABG was performed which showed acute hypercapnic respiratory failure with a pH of 7.14, CO2 121, pAO2 141, bicarb 40, sats 93%. His laboratory data significant for hyperkalemia with potassium level 6.0 and acute renal failure with a BUN of 43 and creatinine 2.07 respectively. The chest x-ray showed cardiomegaly and findings of vascular congestion without overt failure. In the ED the patient was intubated with etomidate and rocuronium and placed on full mechanical ventilation. In addition, he is scheduled to receive 10 units IV regular insulin, 1 amp of D50 and calcium gluconate for hyperkalemia. He received cefepime, azithromycin, Solu-Medrol 125 milligrams IV push and bronchodilator treatment. When seen the patient is on Diprivan infusion for sedation and full mechanical ventilation. Per the patient is not on any oxygen at home and he occasionally smokes cigarettes. 02/24 Patient is intubated and sedated with Diprivan and Fentanyl. Switched to PC/ AC with RR 12, IP:24, IT:1.06, PEEP: 8 and FIO2 100%. CXR this morning showed interval development of bilateral perihilar and lower lung zone airspace opacity he was given Lasix 60mg total overnight. 02/25 Patient remains sedated and intubated with Diprivan and Fentanyl. Afebrile.On PC/AC with RR 12, IP:22, IT:1.10, PEEP:10, FIO2 70%. Afebrile. Renal function worse today with Cr: 1.90 from 1.72 UO: 1150ml in 24 hrs 02/26 No acute events overnight. Sedated with Fentanyl and Diprivan and intubated. Afebrile. His O2 requirements is less now on PC/AC with IP:22, IT: 1.1 with PEEP: 10 and FIO2 55%. Renal function improving with Cr: 1.42 today from 1.90. Tolerating tube feeds. 02/27 Patient remains sedated with Diprivan and Fentanyl infusion and intubated. Afebrile. 02/28: Remains sedated, orally intubated on mechanical ventilation. Being diuresed with Bumex. Tolerating tube feeds. 03/01: Remains sedated, orally intubated on mechanical ventilation. Being diabetes. Remains on PEEP of 10 and FiO2 60% 03/02 Patient remains sedated with Diprivan and Fentanyl and intubated. On PC/AC with PEEP: 10 and FIO2 80% overnight and sats 93-94%. Afebrile. 03/03: The patient remains on high respiratory requirements PEEP of 10, and FiO2 70%. 03/04: Tmax 99.9. Overnight the patient was noted to have desaturations the patient received a bolus of midazolam and fentanyl for ventilator dyssynchrony. The patient was redosed with Diamox with approximately 2.5 L diuresis in the last 12 hours. The patient continues on an FiO2 of 70% with PEEP of 10 to maintain an O2 sat of 90%. 03/05: Afebrile. Patient's FiO2 remains at 60% to maintain O2sat ranging in 92% . Future plans for tracheostomy discussed with when ventilator requirements are decreased. Patient currently is on a PEEP of 10. Patient receiving multiple doses of diuretics chest x-ray still showing increased vascular congestion. Cardiology following metalazone added to medication regimen per cardiology for diuresis. 03/06: Patient's O2 requirements were increased overnight to FiO2 of 90%. The patient's FiO2 has been decreased now currently to 70% O2 sat is 90% ABG is pending. The patient's diuresis effective, 1 kg weight loss in 24 hours. 03/07: The patient continues to have effective diuresis. The patient's O2 requirements currently FiO2 is 70% to maintain a sat of 90-91%. Discussion with Ms. London yesterday, she would like to discuss with palliative team goals of care. Palliative care consult initiated. 03/08: The patient was less responsive to diuretics today, positive weight balance last 24 hours. The patient was placed on a Lasix infusion, noted occasional PVCs on telemetry. Patient potassium repletion ongoing, schedule potassium PO intake increased to 50 mEq twice a day. Free water flushes placed on hold, was sodium level 145 will continue to monitor. Chest x-ray shows slight improvement. Continued management of ventilator settings ARDS protocol, maintaining PaO2 60 or greater and adjusting vent settings based on PaO2. Sedation vacation attempted today by ENVIRONMENTAL HEALTH SPECIALIST, GCS 11T. Noted WBC elevation today ID consulted. 03/09: Today the patient was noted to have increasing FiO2 requirements with a PaO2 of 61. FiO2 was increased to 100%, PEEP was gradually increased to 12, then 14. The patient subsequently became hypotensive, likely due to increasing PEEP, but chest x-ray also obtained to rule out pneumothorax which was clear. The patient subsequently was laced on phenylephrine low-dose 20 mcgs which was eventually weaned off. The patient was placed on PEEP at 7 and FiO2 of 100%, sedation was weaned to lower dose. Palliative care also discussed with goals of care and the patient was made DNR. 03/10 noted creatinine elevation last night, Lasix discontinued. Dobutamine initiated per cardiology this morning. The patient continues to have high requirements on a PEEP of 8 and FiO2 of 100% his PaO2 49.2. PEEP has been increased plan to initiate Flolan. 03/11: Tmax 100.5. FRANK resolved with dobutamine infusion, heart rate 110. Microbiology report bacteremia gram-positive cocci and sputum. Patient currently on Diflucan. Will begin Linezolid in the setting of recent FRANK and oliguria, and await further recommendations from infectious disease customer service consultant. Respiratory status deteriorating. The patient was placed on Flolan last night PaO2 67. Patient remains on a PEEP of 10, unable to advance secondary to hypotension. 03/12 Patient remains sedated with Diprivan, Fentanyl and intubated. On Dobutamine 2.5 mics and Flolan. Remains On PC/AC with RR 12, IP:22, IT:1.20, PEEP;10 and FIo2 90%. Afebrile. 03/13 Patient is sedated with Diprivan and Fentanyl and intubated. On PC/AC with PEEP:12, FIO2 80%. Tmax 101.7 Remains on Dobutamine and Flolan. 03/14 Patient remains sedated and intubated. On PC/AC with PEEP:12 and FIO2 100% . T: 101.5 last night. On Flolan off Dobutamine. 03/15 No acute events overnight. Sedated with Diprivan and Fentanyl. On PC/AC with PEEP: 12, FIO2 down to 70%. Tmax 101.6. On Flolan nebs. 03/16 Patient remains sedated and intubated On PC/AC with decrease in FIO2 requirements down to 65% FIO2 with PEEP: 12. Tmax 101.4. On Heparin drip. 03/17 Patient remains sedated and intubated. T: 99.7, heparin drip turned off as patient had bloody secretions with suctioning and Hemoccult was positive. 03/18 No acute events overnight. Remains sedated and intubated. Tmax 102.8. Off heparin drip patient has minimal bloody secretions. 03/19 Patient remains sedated with Diprivan and Fentanyl intubated. Afebrile. 03/20 No acute events overnight. Sedated and intubated. Tmax : 100.8. NPO for EGD and PEG tube placement today. 03/21 remains sedated, orally intubated on mechanical ventilation. Flolan inhaled stopped today. Switched to PRVC mode mechanical ventilation from PC/AC. Objective Vital Signs Date Time Temp Pulse Resp B/P Pulse Ox O2 Delivery O2 Flow Rate FiO2 03/21/17 08:24 92 55 03/21/17 08:00 100.5 94 12 119/63 Intake and Output 03/20/17 03/20/17 03/21/17 08:00 16:00 00:00 Intake Total 876 ml 482 ml 386 ml Output Total 550 ml 1000 ml 475 ml Balance 326 ml -518 ml -89 ml Result Diagram: 03/21/17 0302 03/21/17 0302 Other Results Laboratory Tests Test 03/21/17 11:00 Blood Gas Puncture Site RT RADIAL Blood Gas Patient Temperature 98.6 Blood Gas HCO3 33 mmol/L (22-26) Blood Gas Base Excess 8.5 mmol/L (-2-2) Blood Gas Oxygen Saturation 86 % (90-100) Arterial Blood pH 7.46 (7.380-7.420) Arterial Blood Partial 47 mmHg (38-42) Pressure CO2 Arterial Blood Partial 58 mmHg Pressure O2 (61-120) Arterial Blood Oxygen Content 19.5 Vol % (12.0-20.0) Arterial Blood 1.6 % (0-4) Carboxyhemoglobin Arterial Blood Methemoglobin 1.2 % (0-2) Blood Gas Hemoglobin 16.2 G/DL (12.0-16.0) Oxygen Delivery Device VENTILATOR Blood Gas Ventilator Setting 600/12/1.1/PEEP12 Blood Gas Inspired Oxygen 55 % Imaging Last Impressions Chest X-Ray 03/18/17 0000 Signed Impressions: Service Date/Time: Saturday, March 18, 2017 08:43 - CONCLUSION: Left lower lobe consolidation/atelectasis and likely some effusion. Nick Menchaca MD Upper Extremity Ultrasound 03/14/17 0000 Signed Impressions: Service Date/Time: Tuesday, March 14, 2017 18:49 - CONCLUSION: 1. Thrombus throughout the cephalic veins bilaterally. These are superficial venous structures. 2. Questionable minimal thrombus within the left subclavian vein. Garrick Hinton Jr., MD CT Angiography 03/02/17 1206 Signed Impressions: Service Date/Time: Thursday, March 02, 2017 13:46 - CONCLUSION: 1. No pulmonary embolus identified. 2. Small bilateral effusions with significant dependent atelectasis bilaterally. Riley Bob MD Lower Extremity Ultrasound 02/27/17 0000 Signed Impressions: Service Date/Time: Monday, February 27, 2017 08:31 - CONCLUSION: Normal examination. Nick Farrell MD Abdomen X-Ray 02/24/17 0000 Signed Impressions: Service Date/Time: Friday, February 24, 2017 10:43 - CONCLUSION: 1. Nasogastric tube just across the GE junction. 2. Minimal nonspecific bowel gas dilatation. Artur Bob MD FACR Objective Remarks GENERAL: Patient is 66 yo obese male intubated and sedated SKIN: Warm and dry. HEAD: Normocephalic. EYES: No scleral icterus. No injection or drainage. NECK: Supple, trachea midline. No JVD or lymphadenopathy. CARDIOVASCULAR:Tachycardic without murmurs, gallops, or rubs. RESPIRATORY: On mechanical ventilation, orally intubated, Breath sounds equal bilaterally. Few Coarse BS GASTROINTESTINAL: Abdomen soft, non-tender, nondistended. OGT, tube feedings infusing MUSCULOSKELETAL: 2+ bilateral edema in upper extremities. Neuro: Sedated, intubated Date of Removal: Mar 04, 2017 Line: Central Venous Catheter Side: Right A/P Assessment and Plan 1. Acute hypercapnic and hypoxemic respiratory failure. 2. COPD exacerbation. 3. Acute renal failure. 4. Hypernatremia 5. Obstructive sleep apnea and morbid obesity. 6. Ischemic dilated Cardiomyopathy. S/P AICD 03/2015 7. History of coronary artery disease. 8. Gastroesophageal reflux disease. 9. Hypertension. 10. Hyperlipidemia. 11 Pulm edema 12. Acute on chronic systolic and diastolic CHF 13. Pulmonary hypertension 14. Bacteremia Plan: Neuro: On Diprivan and Fentanyl infusion for sedation. Daily sedation vacation when appropriate. Monitor neuro status CV: Monitor HR and BP keep MAP>65mmHg. Increase Lopressor 12.5mg BID for rate control. On aspirin 325 milligrams p.o. daily and Plavix 75 mg p.o. daily. Prinivil 5mg daily 01/2017 Echo showed EF 40-45%, nl LV diastolic function, No RWMA Cardiology following-Dr. Cole. Pulm: Switched to PRVC mode mechanical ventilation: rate 12 tidal volume 600 I time 1.1 second PEEP 12 FiO2 55% Continue with vent support and maintain sats above 92%. Bronchodilators every 4 hours, Solu-Medrol 40 mg IV BID. Pulm-Dr. Lashell Padron CXR: LLL consolidation/Atelectasis CTA chest 03/02 showed no PE, small pleural effusions Flolan inhaled nebulizer treatment stopped today : Monitor renal function Is and Os and avoid nephrotoxins. Electrolytes replacement per protocol. Lasix 40mg daily On Free water 300 ml Q4, monitor sodium level. GI: On Protonix 40 mg IV daily for GI prophylaxis. TF(Glucerna 1.5 @45ml/hr. S/p PEG tube placement 03/20 Senna, Colace for bowel regimen, 02/24 KUB abdomen: Minimal non-specific bowel gas dilatation GI is following for anemia and positive Hemoccult. ID:Continue with abx per ID(Vancomycin, Levaquin) monitor for signs of infections ( Fever, WBC) 03/16 C-dif PCR negative 03/14: BC: NGTD 03/14: Normal resp tiffany, urine cx: No growth 03/09 Repeat Bld cultures-staph Epi, coag negative staph- likely contaminant 03/09 Repeat sputum culture-staph aureus Heme: Monitor CBC. Endo: SSI with Accu-Chek q. 6-hour for glycemic control. GI prophylaxis with Protonix 40 mg BID and DVT prophylaxis with SCDs, heparin drip on hold for positive Hemoccult. Doppler US UE: 03/14-Thrombus throughout the cephalic veins bilaterally. ? minimal thrombus within the left subclavian vein. Off Heparin drip as patient had bloody secretions with suctioning ( resolved) and positive Hemoccult. Resume heparin once cleared by GI. Doppler US LE No DVT on 02/27 Dispo: Discussed patient with ENVIRONMENTAL HEALTH SPECIALIST. Palliative care is following. If family desired continued aggressive care he will need a tracheostomy. CCT 30 mins Ari Mackey MD Mar 21, 2017 11:24
[2017-03-21 11:42] LABS: APTT (PATIENT) 53.3 SEC (24.3-30.1)
--- NOTE | 2017-03-21 12:11 | HHI.HCPN ---
Reason for visit a. To assist with evaluation and management of symptoms including:dyspnea, pain b. To assist medical decision maker(s) with: better understanding of current medical conditions; weighing benefits/burdens of medical treatment options; making medical treatment decisions. Subjective/Interval History Mr. Doran continues to show slow improvement. He remains lightly sedated and at the time of my visit today, his eyes are open, he is tracking me in the room , he does not follow commands for me, although staff indicates he will follow some. He remains on a ventilator with a PEEP of 12 and FiO2 of 60%.. O2 sat is running around 90%. Blood gases showing improving hypercapnia. Most recent chest x-ray continues to show left lower lung infiltrates. He is tolerating Glucerna tube feedings via PEG tube. Tmax is 102 in the last 24 hours. He remains with leukocytosis and he continues on Levaquin and vancomycin. He also remains with hypernatremia, averaging 149-150 over the last 10 days. Hx of severe COPD and CAD with cardiomyopathy status post PPM/AICD with an EF of 20%. Advance Directives Living Will: Never completed Health Care Surrogate: Never completed Durable Power of Vector Control Specialist: Never completed Advance Directive Specifics Health Care Surrogate(s): Brooek Doran - [phone] (home), or [phone] (cellvoicemail not set up) Objective Vital Signs Date Time Temp Pulse Resp B/P Pulse Ox O2 Delivery O2 Flow Rate FiO2 03/21/17 11:37 90 60 03/21/17 10:00 108 03/21/17 08:24 92 55 03/21/17 08:00 100.5 94 12 119/63 92 03/21/17 08:00 94 03/21/17 08:00 55 03/21/17 06:00 95 03/21/17 04:26 90 55 03/21/17 04:00 104 03/21/17 04:00 99.8 104 12 118/59 92 03/21/17 04:00 55 03/21/17 02:00 106 03/21/17 01:32 90 55 03/21/17 00:00 99.8 104 12 97/65 88 03/21/17 00:00 104 03/21/17 00:00 55 03/20/17 22:00 128 03/20/17 22:00 95 55 03/20/17 20:00 94 55 03/20/17 20:00 128 03/20/17 20:00 55 03/20/17 20:00 100.1 128 13 134/76 92 03/20/17 18:00 128 03/20/17 16:00 55 03/20/17 16:00 119 03/20/17 16:00 100.8 123 21 108/77 94 03/20/17 16:00 119 03/20/17 15:55 93 60 03/20/17 14:00 119 03/20/17 13:26 21 03/20/17 12:00 102.0 125 21 124/74 92 03/20/17 12:00 125 03/20/17 12:00 60 Intake & Output 03/21/17 03/21/17 07:00 19:00 Intake Total 1502 ml Output Total 875 ml Balance 627 ml IV Total 1182 ml Tube Feeding 0 ml Other 320 ml Output Urine Total 800 ml Stool Total 75 ml Physical Exam CONSTITUTIONAL/GENERAL: This is an adequately nourished patient, mildly sedated but awake and tracking TUBES/LINES/DRAINS:central line, PEG tube, orotracheal tube, catheter, SKIN: No jaundice, rashes, or lesions. Ecchymoses on upper extremities. skin tear noted Skin temperature appropriate. Not diaphoretic. HEAD: Atraumatic. Normocephalic. EYES: Pupils equal and round and reactive. . No scleral icterus. No injection or drainage. ENT:Throat without visible erythema, exudates, masses, or lesions. NECK: Trachea midline. Supple, CARDIOVASCULAR: irregular rate and rhythm w/o murmurs, gallops, or rubs. No JVD. Peripheral pulses symmetric. RESPIRATORY/CHEST: Symmetric, unlabored respirations. Clear diminished breath sounds anteriorly, diminished posterior - vent dependent GASTROINTESTINAL: Abdomen soft, round, No hepato-splenomegaly, or palpable masses. Bowel sounds present. GENITOURINARY: Without palpable bladder distension. catheter in place. MUSCULOSKELETAL: Extremities without clubbing, cyanosis, or edema. No mottling or clubbing. LYMPHATICS: No palpable cervical or supraclavicular adenopathy. NEUROLOGICAL: Eyes open, tracking, reportedly. Follows commands PSYCHIATRIC: unable to assess Diagnostic Tests Laboratory Laboratory Tests Test 03/19/17 03/20/17 03/20/17 03/20/17 05:16 00:39 03:38 19:26 White Blood Count 11.5 TH/MM3 13.2 TH/MM3 (4.0-11.0) (4.0-11.0) Red Blood Count 3.94 MIL/MM3 3.99 MIL/MM3 (4.50-5.90) (4.50-5.90) Hemoglobin 11.9 GM/DL 11.8 GM/DL (13.0-17.0) (13.0-17.0) Hematocrit 36.3 % 36.7 % (39.0-51.0) (39.0-51.0) Mean Corpuscular Volume 92.2 FL 92.0 FL (80.0-100.0) (80.0-100.0) Mean Corpuscular Hemoglobin 30.2 PG 29.7 PG (27.0-34.0) (27.0-34.0) Mean Corpuscular Hemoglobin 32.8 % 32.2 % Concent (32.0-36.0) (32.0-36.0) Red Cell Distribution Width 16.1 % 16.2 % (11.6-17.2) (11.6-17.2) Platelet Count 195 TH/MM3 197 TH/MM3 (150-450) (150-450) Mean Platelet Volume 10.0 FL 10.0 FL (7.0-11.0) (7.0-11.0) Neutrophils (%) (Auto) 90.7 % 90.8 % (16.0-70.0) (16.0-70.0) Lymphocytes (%) (Auto) 4.1 % 3.2 % (9.0-44.0) (9.0-44.0) Monocytes (%) (Auto) 5.0 % (0.0-8.0) 5.6 % (0.0-8.0) Eosinophils (%) (Auto) 0.0 % (0.0-4.0) 0.1 % (0.0-4.0) Basophils (%) (Auto) 0.2 % (0.0-2.0) 0.3 % (0.0-2.0) Neutrophils # (Auto) 10.4 TH/MM3 12.0 TH/MM3 (1.8-7.7) (1.8-7.7) Lymphocytes # (Auto) 0.5 TH/MM3 0.4 TH/MM3 (1.0-4.8) (1.0-4.8) Monocytes # (Auto) 0.6 TH/MM3 0.7 TH/MM3 (0-0.9) (0-0.9) Eosinophils # (Auto) 0.0 TH/MM3 0.0 TH/MM3 (0-0.4) (0-0.4) Basophils # (Auto) 0.0 TH/MM3 0.0 TH/MM3 (0-0.2) (0-0.2) CBC Comment AUTO DIFF AUTO DIFF Differential Total Cells 100 Counted Neutrophils % (Manual) 83 % (16-70) Band Neutrophils % 6 % (0-6) Lymphocytes % 3 % (9-44) Monocytes % 5 % (0-8) Neutrophils # (Manual) 10.5 TH/MM3 (1.8-7.7) Metamyelocytes 2 % (0-1) Differential Comment FINAL DIFF AUTO DIFF MANUAL CONFIRMED Plasma Cells 1 % (0-0) Platelet Estimate NORMAL (NORMAL) Platelet Morphology Comment NORMAL (NORMAL) Red Cell Morphology Comment NORMAL (NORMAL) Sodium Level 150 MEQ/L 149 MEQ/L (136-145) (136-145) Potassium Level 4.7 MEQ/L 4.5 MEQ/L (3.5-5.1) (3.5-5.1) Chloride Level 109 MEQ/L 109 MEQ/L (98-107) (98-107) Carbon Dioxide Level 35.7 MEQ/L 36.6 MEQ/L (21.0-32.0) (21.0-32.0) Anion Gap 5 MEQ/L (5-15) 3 MEQ/L (5-15) Blood Urea Nitrogen 53 MG/DL (7-18) 48 MG/DL (7-18) Creatinine 0.76 MG/DL 0.64 MG/DL (0.60-1.30) (0.60-1.30) Estimat Glomerular Filtration 102 ML/MIN 124 ML/MIN Rate (>89) (>89) Random Glucose 126 MG/DL 120 MG/DL (74-106) (74-106) Calcium Level 9.7 MG/DL 9.6 MG/DL (8.5-10.1) (8.5-10.1) Phosphorus Level 2.8 MG/DL (2.5-4.9) Magnesium Level 2.7 MG/DL (1.5-2.5) Vancomycin Level Trough 13.6 MCG/ML (5.0-10.0) Activated Partial 21.9 SEC Thromboplast Time (24.3-30.1) Test 03/21/17 03/21/17 03/21/17 03:02 11:00 11:13 White Blood Count 12.2 TH/MM3 (4.0-11.0) Red Blood Count 3.80 MIL/MM3 (4.50-5.90) Hemoglobin 11.1 GM/DL (13.0-17.0) Hematocrit 35.0 % (39.0-51.0) Mean Corpuscular Volume 92.0 FL (80.0-100.0) Mean Corpuscular Hemoglobin 29.1 PG (27.0-34.0) Mean Corpuscular Hemoglobin 31.7 % Concent (32.0-36.0) Red Cell Distribution Width 16.5 % (11.6-17.2) Platelet Count 171 TH/MM3 (150-450) Mean Platelet Volume 9.8 FL (7.0-11.0) Neutrophils (%) (Auto) 92.1 % (16.0-70.0) Lymphocytes (%) (Auto) 2.6 % (9.0-44.0) Monocytes (%) (Auto) 5.0 % (0.0-8.0) Eosinophils (%) (Auto) 0.1 % (0.0-4.0) Basophils (%) (Auto) 0.2 % (0.0-2.0) Neutrophils # (Auto) 11.2 TH/MM3 (1.8-7.7) Lymphocytes # (Auto) 0.3 TH/MM3 (1.0-4.8) Monocytes # (Auto) 0.6 TH/MM3 (0-0.9) Eosinophils # (Auto) 0.0 TH/MM3 (0-0.4) Basophils # (Auto) 0.0 TH/MM3 (0-0.2) CBC Comment AUTO DIFF Differential Comment AUTO DIFF CONFIRMED Activated Partial 45.5 SEC 53.3 SEC Thromboplast Time (24.3-30.1) (24.3-30.1) Sodium Level 150 MEQ/L (136-145) Potassium Level 4.0 MEQ/L (3.5-5.1) Chloride Level 110 MEQ/L (98-107) Carbon Dioxide Level 35.0 MEQ/L (21.0-32.0) Anion Gap 5 MEQ/L (5-15) Blood Urea Nitrogen 40 MG/DL (7-18) Creatinine 0.62 MG/DL (0.60-1.30) Estimat Glomerular Filtration 129 ML/MIN Rate (>89) Random Glucose 119 MG/DL (74-106) Calcium Level 9.7 MG/DL (8.5-10.1) Blood Gas Puncture Site RT RADIAL Blood Gas Patient Temperature 98.6 Blood Gas HCO3 33 mmol/L (22-26) Blood Gas Base Excess 8.5 mmol/L (-2-2) Blood Gas Oxygen Saturation 86 % (90-100) Arterial Blood pH 7.46 (7.380-7.420) Arterial Blood Partial 47 mmHg (38-42) Pressure CO2 Arterial Blood Partial 58 mmHg Pressure O2 (61-120) Arterial Blood Oxygen Content 19.5 Vol % (12.0-20.0) Arterial Blood 1.6 % (0-4) Carboxyhemoglobin Arterial Blood Methemoglobin 1.2 % (0-2) Blood Gas Hemoglobin 16.2 G/DL (12.0-16.0) Oxygen Delivery Device VENTILATOR Blood Gas Ventilator Setting 600/12/1.1/PEEP12 Blood Gas Inspired Oxygen 55 % Result Diagram: 03/21/17 0302 03/21/17 0302 Imaging Last 72 hours Impressions Chest X-Ray 03/21/17 0000 Signed Impressions: Service Date/Time: Tuesday, March 21, 2017 02:18 - CONCLUSION: Left lower lung infiltrate. Otherwise, no significant change. Remington Meng MD Assessment and Plan Disease Oriented Problem List: (1) COPD with acute exacerbation Comment: Remains intubated with FiO2 of 60 and PEEP of 12 (2) Ischemic dilated cardiomyopathy (3) Hypertension (4) Atrial flutter Comment: Has PPM with AICD (5) COPD (chronic obstructive pulmonary disease) (6) Acute respiratory failure Symptom Scale: (1) Pain 0-10 Scale: Unable to quantify Comment: History of arthritis with shoulder ORIF (2) Dyspnea 0-10 Scale: Unable to quantify Comment: COPD exacerbation, now vent dependent Pertinent Non-Medical Issues Psychosocial: 34ys- had 6 step children; 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 He has been intubated since admission and remains on high ventilatory support needs with remaining hypercapnia. Code Status: No Code Plan Decision Maker: Brooke Doran, , or [phone] Code Status: No code DNR at this time - no further goals of care at this time Family Discussion:spoke w today - she is uncertain of what to do as he now is opening his eyes, looking at her , following commands for her. She is distraught today as he is restless. She would like for him to be off the ventilator and breath on his own. Discussed trach placement when the time comes. She asks how long he will need to have it and was told it was uncertain. She does not want him to go to a halfway and to be reliant on a machine to breath for the rest of his life. She asked if the only other option was to "pull the plug". She is uncertain as to what to do and relies heavily on her bible, the evangelical and prayers for healing and decision. Symptoms: pain, dyspnea Palliative care phone number provided - will follow during hospital stay. Attestation To help prompt me to consider important information that might be impacting today's encounter and assessment, information from prior notes written by myself or my colleagues may have been "brought forward" into today's note. My signature on this note, however, is an attestation that I personally performed the exam, history, and/or decision-making noted today, and, unless otherwise indicated, the interactions with patient, family, and staff as well as the review of records all occurred today. I also attest that the listed assessment and stated plan reflect my best clinical judgment today based on the combination of historical information, prior notes, and today's exam/ interactions. When time spent is documented, it refers only to time spent today by the signer, or if indicated, combined time spent today by collaborating physician/nurse practitioner. Della Hoffman Mar 21, 2017 12:11
[2017-03-21] MEDS: RESP: ALBUTEROL 2.5 MG/IPRATROPIUM 0.5 MG NEB (PRN) NEB (15:20)
--- NOTE | 2017-03-21 17:41 | HHI.PR ---
Subjective Remarks sedated and on the vent at 60 % FIO2, and PEEP 12 cm. Tolerates feeds. Needs Trach .On heparin Objective Vital Signs Date Time Temp Pulse Resp B/P Pulse Ox O2 Delivery O2 Flow Rate FiO2 03/21/17 16:00 60 03/21/17 16:00 123 03/21/17 16:00 100.1 123 14 147/88 92 03/21/17 15:12 92 60 03/21/17 14:00 121 03/21/17 12:00 124 03/21/17 12:00 98.3 124 34 143/77 90 03/21/17 12:00 60 03/21/17 11:37 90 60 03/21/17 10:00 108 03/21/17 08:24 92 55 03/21/17 08:00 100.5 94 12 119/63 92 03/21/17 08:00 94 03/21/17 08:00 55 03/21/17 06:00 95 03/21/17 04:26 90 55 03/21/17 04:00 104 03/21/17 04:00 99.8 104 12 118/59 92 03/21/17 04:00 55 03/21/17 02:00 106 03/21/17 01:32 90 55 03/21/17 00:00 99.8 104 12 97/65 88 03/21/17 00:00 104 03/21/17 00:00 55 03/20/17 22:00 128 03/20/17 22:00 95 55 03/20/17 20:00 94 55 03/20/17 20:00 128 03/20/17 20:00 55 03/20/17 20:00 100.1 128 13 134/76 92 03/20/17 18:00 128 I/O 03/20/17 03/20/17 03/20/17 03/21/17 03/21/17 03/21/17 07:00 15:00 23:00 07:00 15:00 23:00 Intake Total 876 ml 482 ml 386 ml 1116 ml 1099 ml Output Total 550 ml 1000 ml 475 ml 400 ml 850 ml Balance 326 ml -518 ml -89 ml 716 ml 249 ml IV Total 752 ml 362 ml 266 ml 916 ml 374 ml Tube Feeding 64 ml 0 ml 0 ml 125 ml Other 60 ml 120 ml 120 ml 200 ml 600 ml Output Urine Total 500 ml 950 ml 450 ml 350 ml 850 ml Stool Total 50 ml 50 ml 25 ml 50 ml 0 ml Result Diagram: 03/21/17 0302 03/21/17 0302 Objective Remarks PHYSICAL EXAMINATION GENERAL: This moderately obese elderly man is responsive, assisting the ventilator. HEENT: Head normocephalic. Pupils are reactive. Throat clear. NECK: No bruits or thyroid enlargement. CHEST: Equal movements with diminished breath sounds at the bases with bilateral wheeze and basilar crackles. HEART: The heart sounds are regular, S1 and S2. No murmur. ABDOMEN: Soft, obese, without masses. No organomegaly. Bowel sounds are faint. EXTREMITIES: Edema 1+ with decreased pulses . NEUROLOGIC: Awake and responds.Reflexes 1 + SKIN: Warm and dry. Assessment and Plan Assessment and Plan IMPRESSION 1. Hypercapnic respiratory failure and hypoxemic respiratory failure. 2. COPD with chronic bronchitis and acute exacerbation. 3. Congestive heart failure. 4. Cardiomyopathy with ischemic heart disease. 5. Hypertension and hyperlipidemia. 6. Possible obstructive sleep apnea. 7. pulmonary HTN. Plan : 1. Wean O2 to keep sat >92. 2. Trach when stable. 3. Reduce sedation 4. Tube feeds at 50 CC. 5. Cont daily Lasix 40 mg. 6. Continue antibiotics. 7. Cont Heparin drip. Bri Stout MD Mar 21, 2017 17:41
[2017-03-21] MEDS: ATORVASTATIN 40 MG TAB PO SCH (20:39)
[2017-03-22] VITALS (18 sets, daily range): BP systolic 89–163; BP diastolic 51–70; PULSE 69–118; RESP 20–27; TEMP 97.6–98.8; O2SAT 89–94
[2017-03-22] MEDS: VANCOMYCIN INJ 2,000 MG in SODIUM CHLORID 0.9% 500 ML INJ 500 ML IV SCH ×2 (00:35→23:56)
[2017-03-22] MEDS: PROPOFOL 1000 MG/100 ML INJ 100 ML IV SCH ×7 (02:34→23:56)
[2017-03-22] MEDS: FREE WATER G-TUBE SCH ×5 (04:00→21:08)
[2017-03-22] MEDS: CHLORHEXIDINE GLUCONATE 2 % 1 PACK (2 CLOTHS) TOP SCH (04:00)
[2017-03-22 04:28] LABS: APTT (PATIENT) 56.5 SEC (24.3-30.1)
[2017-03-22] MEDS: INSULIN NovoLIN REGULAR SUPPLEMENTAL SCALE SQ SCH ×4 (05:00→21:08)
[2017-03-22] MEDS: CHLORHEXIDINE 0.12% (ORAL KIT) 15 ML CUP MT SCH ×2 (08:44→21:08)
[2017-03-22] MEDS: DOCUSATE SODIUM 100 MG/10 ML UDC PO SCH ×2 (08:45→21:08)
[2017-03-22] MEDS: SENNOSIDES SYRUP 8.8 MG/5 ML CUP PO SCH (08:45)
[2017-03-22] MEDS: methylPREDNISolone SOD SUCC 40 MG/1 ML VIAL IV PUSH SCH ×2 (08:45→21:08)
[2017-03-22] MEDS: FUROSEMIDE 40 MG/4 ML VIAL IV PUSH SCH (08:45)
[2017-03-22] MEDS: LEVOFLOXACIN 750 MG TAB PO SCH (08:45)
[2017-03-22] MEDS: LISINOPRIL 5 MG TAB PO SCH (08:46)
[2017-03-22] MEDS: PANTOPRAZOLE SODIUM 40 MG VIAL IV SCH (08:46)
[2017-03-22] MEDS: METOPROLOL TARTRATE 25 MG TAB PO SCH ×2 (08:46→21:00)
--- NOTE | 2017-03-22 09:51 | HHI.CCPN ---
Subjective Remarks/Hospital Course The patient is a 66-year-old male with past medical history of COPD, cardiomyopathy, hypertension, gastroesophageal reflux disease, hyperlipidemia and coronary artery disease. The patient presented to [facility] ED with a 2-week history of progressive worsening shortness of breath. On arrival to the ED he was initially placed on a non-rebreather mask and ABG was performed which showed acute hypercapnic respiratory failure with a pH of 7.14, CO2 121, pAO2 141, bicarb 40, sats 93%. His laboratory data significant for hyperkalemia with potassium level 6.0 and acute renal failure with a BUN of 43 and creatinine 2.07 respectively. The chest x-ray showed cardiomegaly and findings of vascular congestion without overt failure. In the ED the patient was intubated with etomidate and rocuronium and placed on full mechanical ventilation. In addition, he is scheduled to receive 10 units IV regular insulin, 1 amp of D50 and calcium gluconate for hyperkalemia. He received cefepime, azithromycin, Solu-Medrol 125 milligrams IV push and bronchodilator treatment. When seen the patient is on Diprivan infusion for sedation and full mechanical ventilation. Per the patient is not on any oxygen at home and he occasionally smokes cigarettes. 02/24 Patient is intubated and sedated with Diprivan and Fentanyl. Switched to PC/ AC with RR 12, IP:24, IT:1.06, PEEP: 8 and FIO2 100%. CXR this morning showed interval development of bilateral perihilar and lower lung zone airspace opacity he was given Lasix 60mg total overnight. 02/25 Patient remains sedated and intubated with Diprivan and Fentanyl. Afebrile.On PC/AC with RR 12, IP:22, IT:1.10, PEEP:10, FIO2 70%. Afebrile. Renal function worse today with Cr: 1.90 from 1.72 UO: 1150ml in 24 hrs 02/26 No acute events overnight. Sedated with Fentanyl and Diprivan and intubated. Afebrile. His O2 requirements is less now on PC/AC with IP:22, IT: 1.1 with PEEP: 10 and FIO2 55%. Renal function improving with Cr: 1.42 today from 1.90. Tolerating tube feeds. 02/27 Patient remains sedated with Diprivan and Fentanyl infusion and intubated. Afebrile. 02/28: Remains sedated, orally intubated on mechanical ventilation. Being diuresed with Bumex. Tolerating tube feeds. 03/01: Remains sedated, orally intubated on mechanical ventilation. Being diabetes. Remains on PEEP of 10 and FiO2 60% 03/02 Patient remains sedated with Diprivan and Fentanyl and intubated. On PC/AC with PEEP: 10 and FIO2 80% overnight and sats 93-94%. Afebrile. 03/03: The patient remains on high respiratory requirements PEEP of 10, and FiO2 70%. 03/04: Tmax 99.9. Overnight the patient was noted to have desaturations the patient received a bolus of midazolam and fentanyl for ventilator dyssynchrony. The patient was redosed with Diamox with approximately 2.5 L diuresis in the last 12 hours. The patient continues on an FiO2 of 70% with PEEP of 10 to maintain an O2 sat of 90%. 03/05: Afebrile. Patient's FiO2 remains at 60% to maintain O2sat ranging in 92% . Future plans for tracheostomy discussed with when ventilator requirements are decreased. Patient currently is on a PEEP of 10. Patient receiving multiple doses of diuretics chest x-ray still showing increased vascular congestion. Cardiology following metalazone added to medication regimen per cardiology for diuresis. 03/06: Patient's O2 requirements were increased overnight to FiO2 of 90%. The patient's FiO2 has been decreased now currently to 70% O2 sat is 90% ABG is pending. The patient's diuresis effective, 1 kg weight loss in 24 hours. 03/07: The patient continues to have effective diuresis. The patient's O2 requirements currently FiO2 is 70% to maintain a sat of 90-91%. Discussion with Ms. London yesterday, she would like to discuss with palliative team goals of care. Palliative care consult initiated. 03/08: The patient was less responsive to diuretics today, positive weight balance last 24 hours. The patient was placed on a Lasix infusion, noted occasional PVCs on telemetry. Patient potassium repletion ongoing, schedule potassium PO intake increased to 50 mEq twice a day. Free water flushes placed on hold, was sodium level 145 will continue to monitor. Chest x-ray shows slight improvement. Continued management of ventilator settings ARDS protocol, maintaining PaO2 60 or greater and adjusting vent settings based on PaO2. Sedation vacation attempted today by HEARING AID TECHNICIAN, GCS 11T. Noted WBC elevation today ID consulted. 03/09: Today the patient was noted to have increasing FiO2 requirements with a PaO2 of 61. FiO2 was increased to 100%, PEEP was gradually increased to 12, then 14. The patient subsequently became hypotensive, likely due to increasing PEEP, but chest x-ray also obtained to rule out pneumothorax which was clear. The patient subsequently was laced on phenylephrine low-dose 20 mcgs which was eventually weaned off. The patient was placed on PEEP at 7 and FiO2 of 100%, sedation was weaned to lower dose. Palliative care also discussed with goals of care and the patient was made DNR. 03/10 noted creatinine elevation last night, Lasix discontinued. Dobutamine initiated per cardiology this morning. The patient continues to have high requirements on a PEEP of 8 and FiO2 of 100% his PaO2 49.2. PEEP has been increased plan to initiate Flolan. 03/11: Tmax 100.5. FRANK resolved with dobutamine infusion, heart rate 110. Microbiology report bacteremia gram-positive cocci and sputum. Patient currently on Diflucan. Will begin Linezolid in the setting of recent FRANK and oliguria, and await further recommendations from infectious disease outside solar sales consultant. Respiratory status deteriorating. The patient was placed on Flolan last night PaO2 67. Patient remains on a PEEP of 10, unable to advance secondary to hypotension. 03/12 Patient remains sedated with Diprivan, Fentanyl and intubated. On Dobutamine 2.5 mics and Flolan. Remains On PC/AC with RR 12, IP:22, IT:1.20, PEEP;10 and FIo2 90%. Afebrile. 03/13 Patient is sedated with Diprivan and Fentanyl and intubated. On PC/AC with PEEP:12, FIO2 80%. Tmax 101.7 Remains on Dobutamine and Flolan. 03/14 Patient remains sedated and intubated. On PC/AC with PEEP:12 and FIO2 100% . T: 101.5 last night. On Flolan off Dobutamine. 03/15 No acute events overnight. Sedated with Diprivan and Fentanyl. On PC/AC with PEEP: 12, FIO2 down to 70%. Tmax 101.6. On Flolan nebs. 03/16 Patient remains sedated and intubated On PC/AC with decrease in FIO2 requirements down to 65% FIO2 with PEEP: 12. Tmax 101.4. On Heparin drip. 03/17 Patient remains sedated and intubated. T: 99.7, heparin drip turned off as patient had bloody secretions with suctioning and Hemoccult was positive. 03/18 No acute events overnight. Remains sedated and intubated. Tmax 102.8. Off heparin drip patient has minimal bloody secretions. 03/19 Patient remains sedated with Diprivan and Fentanyl intubated. Afebrile. 03/20 No acute events overnight. Sedated and intubated. Tmax : 100.8. NPO for EGD and PEG tube placement today. 03/21 remains sedated, orally intubated on mechanical ventilation. Flolan inhaled stopped today. Switched to PRVC mode mechanical ventilation from PC/AC. 03/22: Main sedated, orally intubated on mechanical ventilation. Deep decreased to +10, FiO2 55%. Objective Vital Signs Date Time Temp Pulse Resp B/P Pulse Ox O2 Delivery O2 Flow Rate FiO2 03/22/17 08:00 91 60 03/22/17 06:00 89 03/22/17 04:00 98.5 20 163/70 Intake and Output 03/21/17 03/21/17 03/22/17 08:00 16:00 00:00 Intake Total 1116 ml 1099 ml 1228 ml Output Total 400 ml 850 ml 450 ml Balance 716 ml 249 ml 778 ml Result Diagram: 03/21/17 0302 03/22/17 0331 Other Results Laboratory Tests Test 03/21/17 11:00 Blood Gas Puncture Site RT RADIAL Blood Gas Patient Temperature 98.6 Blood Gas HCO3 33 mmol/L (22-26) Blood Gas Base Excess 8.5 mmol/L (-2-2) Blood Gas Oxygen Saturation 86 % (90-100) Arterial Blood pH 7.46 (7.380-7.420) Arterial Blood Partial 47 mmHg (38-42) Pressure CO2 Arterial Blood Partial 58 mmHg Pressure O2 (61-120) Arterial Blood Oxygen Content 19.5 Vol % (12.0-20.0) Arterial Blood 1.6 % (0-4) Carboxyhemoglobin Arterial Blood Methemoglobin 1.2 % (0-2) Blood Gas Hemoglobin 16.2 G/DL (12.0-16.0) Oxygen Delivery Device VENTILATOR Blood Gas Ventilator Setting 600/12/1.1/PEEP12 Blood Gas Inspired Oxygen 55 % Imaging Last Impressions Chest X-Ray 03/18/17 0000 Signed Impressions: Service Date/Time: Saturday, March 18, 2017 08:43 - CONCLUSION: Left lower lobe consolidation/atelectasis and likely some effusion. Nick Menchaca MD Upper Extremity Ultrasound 03/14/17 0000 Signed Impressions: Service Date/Time: Tuesday, March 14, 2017 18:49 - CONCLUSION: 1. Thrombus throughout the cephalic veins bilaterally. These are superficial venous structures. 2. Questionable minimal thrombus within the left subclavian vein. Garrick Hinton Jr., MD CT Angiography 03/02/17 1206 Signed Impressions: Service Date/Time: Thursday, March 02, 2017 13:46 - CONCLUSION: 1. No pulmonary embolus identified. 2. Small bilateral effusions with significant dependent atelectasis bilaterally. Riley Bob MD Lower Extremity Ultrasound 02/27/17 0000 Signed Impressions: Service Date/Time: Monday, February 27, 2017 08:31 - CONCLUSION: Normal examination. Nick Farrell MD Abdomen X-Ray 02/24/17 0000 Signed Impressions: Service Date/Time: Friday, February 24, 2017 10:43 - CONCLUSION: 1. Nasogastric tube just across the GE junction. 2. Minimal nonspecific bowel gas dilatation. Artur Bob MD FACR Objective Remarks GENERAL: Patient is 66 yo obese male intubated and sedated SKIN: Warm and dry. HEAD: Normocephalic. EYES: No scleral icterus. No injection or drainage. NECK: Supple, trachea midline. No JVD or lymphadenopathy. CARDIOVASCULAR:Tachycardic without murmurs, gallops, or rubs. RESPIRATORY: On mechanical ventilation, orally intubated, Breath sounds equal bilaterally. Few Coarse BS GASTROINTESTINAL: Abdomen soft, non-tender, nondistended. OGT, tube feedings infusing MUSCULOSKELETAL: 2+ bilateral edema in upper extremities. Neuro: Sedated, intubated Date of Removal: Mar 04, 2017 Line: Central Venous Catheter Side: Right A/P Assessment and Plan 1. Acute hypercapnic and hypoxemic respiratory failure. 2. COPD exacerbation. 3. Acute renal failure. 4. Hypernatremia 5. Obstructive sleep apnea and morbid obesity. 6. Ischemic dilated Cardiomyopathy. S/P AICD 03/2015 7. History of coronary artery disease. 8. Gastroesophageal reflux disease. 9. Hypertension. 10. Hyperlipidemia. 11 Pulm edema 12. Acute on chronic systolic and diastolic CHF 13. Pulmonary hypertension 14. Bacteremia Plan: Neuro: On Diprivan and Fentanyl infusion for sedation. Daily sedation vacation when appropriate. Monitor neuro status CV: Monitor HR and BP keep MAP>65mmHg. On Lopressor 12.5mg BID for rate control. On aspirin 325 milligrams p.o. daily and Plavix 75 mg p.o. daily - we will hold starting 03/22 in anticipation of tracheostomy. Prinivil 5mg daily 01/2017 Echo showed EF 40-45%, nl LV diastolic function, No RWMA Cardiology following-Dr. Cole. Pulm: Switched to PRVC mode mechanical ventilation: rate 12 tidal volume 600 I time 1.1 second PEEP 12 FiO2 55% Continue with vent support and maintain sats above 92%. Bronchodilators every 4 hours, Solu-Medrol 40 mg IV BID. Pulm-Dr. Lashell Padron CXR: LLL consolidation/Atelectasis CTA chest 03/02 showed no PE, small pleural effusions Flolan inhaled nebulizer treatment stopped 03/21 : Monitor renal function Is and Os and avoid nephrotoxins. Electrolytes replacement per protocol. Lasix 40mg daily Decrease Free water to 200 ml Q8 on 03/22, monitor sodium level. GI: On Protonix 40 mg IV daily for GI prophylaxis. TF(Glucerna 1.5 @45ml/hr. S/p PEG tube placement 03/20 Senna, Colace for bowel regimen, 02/24 KUB abdomen: Minimal non-specific bowel gas dilatation GI is following for anemia and positive Hemoccult. ID:Continue with abx per ID(Vancomycin, Levaquin) monitor for signs of infections ( Fever, WBC) 03/16 C-dif PCR negative 03/14: BC: NGTD 03/14: Normal resp tiffany, urine cx: No growth 03/09 Repeat Bld cultures-staph Epi, coag negative staph- likely contaminant 03/09 Repeat sputum culture-staph aureus Heme: Monitor CBC. Endo: SSI with Accu-Chek q. 6-hour for glycemic control. GI prophylaxis with Protonix 40 mg BID and DVT prophylaxis with SCDs, heparin drip on hold for positive Hemoccult. Doppler US UE: 03/14-Thrombus throughout the cephalic veins bilaterally. ? minimal thrombus within the left subclavian vein. Was off Heparin drip as patient had bloody secretions with suctioning ( resolved ) and positive Hemoccult. Heparin resumed (cleared by GI). Doppler US LE No DVT on 02/27 Dispo: Discussed patient with HEARING AID TECHNICIAN. Palliative care is following. Unable to wean off mechanical ventilation currently. He will need a tracheostomy, consulted Dr. Kirkland and held ASA/plavix in anticipation. CCT 30 mins Ari Mackye MD Mar 22, 2017 09:51
--- NOTE | 2017-03-22 10:29 | HHI.CCPN ---
Subjective Brief History The patient is a 66-year-old male with past medical history of COPD, cardiomyopathy, hypertension, gastroesophageal reflux disease, hyperlipidemia and coronary artery disease. The patient presented to [facility] ED with a 2-week history of progressive worsening shortness of breath. On arrival to the ED he was initially placed on a non-rebreather mask and ABG was performed which showed acute hypercapnic respiratory failure with a pH of 7.14, CO2 121, pAO2 141, bicarb 40, sats 93%. His laboratory data significant for hyperkalemia with potassium level 6.0 and acute renal failure with a BUN of 43 and creatinine 2.07 respectively. The chest x-ray showed cardiomegaly and findings of vascular congestion without overt failure. In the ED the patient was intubated with etomidate and rocuronium and placed on full mechanical ventilation. In addition, he is scheduled to receive 10 units IV regular insulin, 1 amp of D50 and calcium gluconate for hyperkalemia. He received cefepime, azithromycin, Solu-Medrol 125 milligrams IV push and bronchodilator treatment. Since his arrival patient has been on the ventilator and now coming to about 1 month ventilatory therapy Clearly patient needs tracheostomy at this time 24 Hour Review/Hospital Course We'll proceed with tracheostomy and soreness patient's PTT is corrected, so anticoagulation should be discontinued at this time and I'll proceed with tracheostomy tomorrow Patient is still on 12 of PEEP which makes it that more difficult, but due the patient felt we can do this at the bedside Again all things equal probably to the tracheostomy tomorrow at the bedside Thanks for the referral J Objective Vital Signs Date Time Temp Pulse Resp B/P Pulse Ox O2 Delivery O2 Flow Rate FiO2 03/22/17 08:00 91 60 03/22/17 06:00 89 03/22/17 04:00 98.5 20 163/70 Intake and Output 03/21/17 03/21/17 03/22/17 08:00 16:00 00:00 Intake Total 1116 ml 1099 ml 1228 ml Output Total 400 ml 850 ml 450 ml Balance 716 ml 249 ml 778 ml Result Diagram: 03/21/17 0302 03/22/17 0331 Other Results Laboratory Tests Test 03/21/17 11:00 Blood Gas Puncture Site RT RADIAL Blood Gas Patient Temperature 98.6 Blood Gas HCO3 33 mmol/L (22-26) Blood Gas Base Excess 8.5 mmol/L (-2-2) Blood Gas Oxygen Saturation 86 % (90-100) Arterial Blood pH 7.46 (7.380-7.420) Arterial Blood Partial 47 mmHg (38-42) Pressure CO2 Arterial Blood Partial 58 mmHg Pressure O2 (61-120) Arterial Blood Oxygen Content 19.5 Vol % (12.0-20.0) Arterial Blood 1.6 % (0-4) Carboxyhemoglobin Arterial Blood Methemoglobin 1.2 % (0-2) Blood Gas Hemoglobin 16.2 G/DL (12.0-16.0) Oxygen Delivery Device VENTILATOR Blood Gas Ventilator Setting 600/12/1.1/PEEP12 Blood Gas Inspired Oxygen 55 % Vascular Central Line Catheter Date of Removal: Mar 04, 2017 Line: Central Venous Catheter Side: Right Jacek Matthew MD Mar 22, 2017 10:29
[2017-03-22] MEDS: fentaNYL DRIP 250 ML IV SCH (12:12)
[2017-03-22] MEDS: HEPARIN-D5W INJ 250 ML IV SCH (12:14)
--- NOTE | 2017-03-22 12:28 | HHI.HCPN ---
Reason for visit a. To assist with evaluation and management of symptoms including:dyspnea, pain b. To assist medical decision maker(s) with: better understanding of current medical conditions; weighing benefits/burdens of medical treatment options; making medical treatment decisions. Subjective/Interval History Mr. Doran continues to show slow improvement. He remains lightly sedated and at the time of my visit today, he opens his eys to touch and call of name. He is less restless. His is not present at this time. He remains on a ventilator with a PEEP of 10 and FiO2 of 55%.. O2 sat is running around 90%. Blood gases showing improving hypercapnia. Most recent chest x-ray continues to show left lower lung infiltrates. Tmax is 102 in the last 24 hours. He remains with leukocytosis and he continues on Levaquin and vancomycin. He also remains with hypernatremia, averaging 149-150 over the last 10 days. He is tolerating Glucerna tube feedings via PEG tube. Hx of severe COPD and CAD with cardiomyopathy status post PPM/AICD with an EF of 20%. Plan is for Trach placement on Sunday - will support as the patient is awake and will respond to her. She remains hopeful for recovery. Advance Directives Living Will: Never completed Health Care Surrogate: Never completed Durable Power of Crown Pouncer: Never completed Advance Directive Specifics Health Care Surrogate(s): Brooke Doran - [phone] (home), or [phone] (cellvoicemail not set up) Objective Vital Signs Date Time Temp Pulse Resp B/P Pulse Ox O2 Delivery O2 Flow Rate FiO2 03/22/17 10:00 70 03/22/17 08:00 98.7 69 23 97/59 91 03/22/17 08:00 69 03/22/17 08:00 60 03/22/17 08:00 91 60 03/22/17 06:00 89 03/22/17 04:17 92 60 03/22/17 04:00 98.5 118 20 163/70 94 03/22/17 04:00 118 03/22/17 04:00 60 03/22/17 02:00 114 03/22/17 01:15 92 60 03/22/17 00:00 98.8 101 22 98/53 90 03/22/17 00:00 101 03/22/17 00:00 60 03/21/17 22:08 93 60 03/21/17 22:00 97 03/21/17 20:00 123 03/21/17 20:00 60 03/21/17 20:00 100.2 116 20 110/64 92 03/21/17 19:50 93 60 03/21/17 18:00 123 03/21/17 16:00 60 03/21/17 16:00 123 03/21/17 16:00 100.1 123 14 147/88 92 03/21/17 15:12 92 60 03/21/17 14:00 121 Intake & Output 03/22/17 03/22/17 07:00 19:00 Intake Total 2267 ml Output Total 1100 ml Balance 1167 ml IV Total 1291 ml Tube Feeding 376 ml Other 600 ml Output Urine Total 1000 ml Stool Total 100 ml Physical Exam CONSTITUTIONAL/GENERAL: This is an adequately nourished patient, mildly sedated but awake and tracking TUBES/LINES/DRAINS:central line, PEG tube, orotracheal tube, catheter, SKIN: No jaundice, rashes, or lesions. Ecchymoses on upper extremities. skin tear noted Skin temperature appropriate. Not diaphoretic. HEAD: Atraumatic. Normocephalic. EYES: Pupils equal and round and reactive. . No scleral icterus. No injection or drainage. ENT:Throat without visible erythema, exudates, masses, or lesions. NECK: Trachea midline. Supple, CARDIOVASCULAR: irregular rate and rhythm w/o murmurs, gallops, or rubs. No JVD. Peripheral pulses symmetric. RESPIRATORY/CHEST: Symmetric, unlabored respirations. Clear diminished breath sounds anteriorly, diminished posterior - vent dependent GASTROINTESTINAL: Abdomen soft, round, No hepato-splenomegaly, or palpable masses. Bowel sounds present. GENITOURINARY: Without palpable bladder distension. catheter in place. MUSCULOSKELETAL: Extremities without clubbing, cyanosis, or edema. No mottling or clubbing. LYMPHATICS: No palpable cervical or supraclavicular adenopathy. NEUROLOGICAL: Eyes open, tracking, reportedly. Follows commands PSYCHIATRIC: unable to assess Diagnostic Tests Laboratory Laboratory Tests Test 03/20/17 03/20/17 03/20/17 03/21/17 00:39 03:38 19:26 03:02 Vancomycin Level Trough 13.6 MCG/ML (5.0-10.0) White Blood Count 13.2 TH/MM3 12.2 TH/MM3 (4.0-11.0) (4.0-11.0) Red Blood Count 3.99 MIL/MM3 3.80 MIL/MM3 (4.50-5.90) (4.50-5.90) Hemoglobin 11.8 GM/DL 11.1 GM/DL (13.0-17.0) (13.0-17.0) Hematocrit 36.7 % 35.0 % (39.0-51.0) (39.0-51.0) Mean Corpuscular Volume 92.0 FL 92.0 FL (80.0-100.0) (80.0-100.0) Mean Corpuscular Hemoglobin 29.7 PG 29.1 PG (27.0-34.0) (27.0-34.0) Mean Corpuscular Hemoglobin 32.2 % 31.7 % Concent (32.0-36.0) (32.0-36.0) Red Cell Distribution Width 16.2 % 16.5 % (11.6-17.2) (11.6-17.2) Platelet Count 197 TH/MM3 171 TH/MM3 (150-450) (150-450) Mean Platelet Volume 10.0 FL 9.8 FL (7.0-11.0) (7.0-11.0) Neutrophils (%) (Auto) 90.8 % 92.1 % (16.0-70.0) (16.0-70.0) Lymphocytes (%) (Auto) 3.2 % 2.6 % (9.0-44.0) (9.0-44.0) Monocytes (%) (Auto) 5.6 % (0.0-8.0) 5.0 % (0.0-8.0) Eosinophils (%) (Auto) 0.1 % (0.0-4.0) 0.1 % (0.0-4.0) Basophils (%) (Auto) 0.3 % (0.0-2.0) 0.2 % (0.0-2.0) Neutrophils # (Auto) 12.0 TH/MM3 11.2 TH/MM3 (1.8-7.7) (1.8-7.7) Lymphocytes # (Auto) 0.4 TH/MM3 0.3 TH/MM3 (1.0-4.8) (1.0-4.8) Monocytes # (Auto) 0.7 TH/MM3 0.6 TH/MM3 (0-0.9) (0-0.9) Eosinophils # (Auto) 0.0 TH/MM3 0.0 TH/MM3 (0-0.4) (0-0.4) Basophils # (Auto) 0.0 TH/MM3 0.0 TH/MM3 (0-0.2) (0-0.2) CBC Comment AUTO DIFF AUTO DIFF Differential Comment AUTO DIFF AUTO DIFF CONFIRMED CONFIRMED Sodium Level 149 MEQ/L 150 MEQ/L (136-145) (136-145) Potassium Level 4.5 MEQ/L 4.0 MEQ/L (3.5-5.1) (3.5-5.1) Chloride Level 109 MEQ/L 110 MEQ/L (98-107) (98-107) Carbon Dioxide Level 36.6 MEQ/L 35.0 MEQ/L (21.0-32.0) (21.0-32.0) Anion Gap 3 MEQ/L (5-15) 5 MEQ/L (5-15) Blood Urea Nitrogen 48 MG/DL (7-18) 40 MG/DL (7-18) Creatinine 0.64 MG/DL 0.62 MG/DL (0.60-1.30) (0.60-1.30) Estimat Glomerular Filtration 124 ML/MIN 129 ML/MIN Rate (>89) (>89) Random Glucose 120 MG/DL 119 MG/DL (74-106) (74-106) Calcium Level 9.6 MG/DL 9.7 MG/DL (8.5-10.1) (8.5-10.1) Activated Partial 21.9 SEC 45.5 SEC Thromboplast Time (24.3-30.1) (24.3-30.1) Test 03/21/17 03/21/17 03/22/17 11:00 11:13 03:31 Blood Gas Puncture Site RT RADIAL Blood Gas Patient Temperature 98.6 Blood Gas HCO3 33 mmol/L (22-26) Blood Gas Base Excess 8.5 mmol/L (-2-2) Blood Gas Oxygen Saturation 86 % (90-100) Arterial Blood pH 7.46 (7.380-7.420) Arterial Blood Partial 47 mmHg (38-42) Pressure CO2 Arterial Blood Partial 58 mmHg Pressure O2 (61-120) Arterial Blood Oxygen Content 19.5 Vol % (12.0-20.0) Arterial Blood 1.6 % (0-4) Carboxyhemoglobin Arterial Blood Methemoglobin 1.2 % (0-2) Blood Gas Hemoglobin 16.2 G/DL (12.0-16.0) Oxygen Delivery Device VENTILATOR Blood Gas Ventilator Setting 600/12/1.1/PEEP12 Blood Gas Inspired Oxygen 55 % Activated Partial 53.3 SEC 56.5 SEC Thromboplast Time (24.3-30.1) (24.3-30.1) Creatinine 0.58 MG/DL (0.60-1.30) Estimat Glomerular Filtration 139 ML/MIN Rate (>89) Result Diagram: 03/21/17 0302 03/22/17 0331 Imaging Last 72 hours Impressions Chest X-Ray 03/21/17 0000 Signed Impressions: Service Date/Time: Tuesday, March 21, 2017 02:18 - CONCLUSION: Left lower lung infiltrate. Otherwise, no significant change. Remington Meng MD Assessment and Plan Disease Oriented Problem List: (1) COPD with acute exacerbation Comment: slowly improving intubated with FiO2 of 55 and PEEP of 10 (2) Ischemic dilated cardiomyopathy (3) Hypertension (4) Atrial flutter Comment: Has PPM with AICD (5) COPD (chronic obstructive pulmonary disease) (6) Acute respiratory failure Symptom Scale: (1) Pain 0-10 Scale: Unable to quantify Comment: History of arthritis with shoulder ORIF (2) Dyspnea 0-10 Scale: Unable to quantify Comment: COPD exacerbation, now vent dependent Pertinent Non-Medical Issues Psychosocial: 36ys- had 6 step children; 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 He has been intubated since admission and remains on high ventilatory support needs with remaining hypercapnia. plan is for trach placement however, unsure if he will be able to be fully weaned and return to a meaningful existence Code Status: No Code Plan Decision Maker: Brooke Doran, , or [phone] Code Status: No code DNR at this time - no further goals of care at this time Family Discussion:spoke w yesterday . She will agree to trach placement on sunday as he is awake and recognizes her. Symptoms: pain, dyspnea Palliative care phone number provided - will follow during hospital stay. Attestation To help prompt me to consider important information that might be impacting today's encounter and assessment, information from prior notes written by myself or my colleagues may have been "brought forward" into today's note. My signature on this note, however, is an attestation that I personally performed the exam, history, and/or decision-making noted today, and, unless otherwise indicated, the interactions with patient, family, and staff as well as the review of records all occurred today. I also attest that the listed assessment and stated plan reflect my best clinical judgment today based on the combination of historical information, prior notes, and today's exam/ interactions. When time spent is documented, it refers only to time spent today by the signer, or if indicated, combined time spent today by collaborating physician/nurse practitioner. Della Hoffman Mar 22, 2017 12:28 interactions. When time spent is documented, it refers only to time spent today by the signer, or if indicated, combined time spent today by collaborating physician/nurse practitioner. Della Hoffman Mar 22, 2017 12:28
--- NOTE | 2017-03-22 12:53 | HHI.PR ---
Subjective Remarks Awake and on the vent at 60 % FIO2, and PEEP 10 cm. Tolerates feeds. Needs Trach .On Plavix Objective Vital Signs Date Time Temp Pulse Resp B/P Pulse Ox O2 Delivery O2 Flow Rate FiO2 03/22/17 12:39 92 60 03/22/17 10:00 70 03/22/17 08:00 98.7 69 23 97/59 91 03/22/17 08:00 69 03/22/17 08:00 60 03/22/17 08:00 91 60 03/22/17 06:00 89 03/22/17 04:17 92 60 03/22/17 04:00 98.5 118 20 163/70 94 03/22/17 04:00 118 03/22/17 04:00 60 03/22/17 02:00 114 03/22/17 01:15 92 60 03/22/17 00:00 98.8 101 22 98/53 90 03/22/17 00:00 101 03/22/17 00:00 60 03/21/17 22:08 93 60 03/21/17 22:00 97 03/21/17 20:00 123 03/21/17 20:00 60 03/21/17 20:00 100.2 116 20 110/64 92 03/21/17 19:50 93 60 03/21/17 18:00 123 03/21/17 16:00 60 03/21/17 16:00 123 03/21/17 16:00 100.1 123 14 147/88 92 03/21/17 15:12 92 60 03/21/17 14:00 121 I/O 03/21/17 03/21/17 03/21/17 03/22/17 03/22/17 03/22/17 07:00 15:00 23:00 07:00 15:00 23:00 Intake Total 1116 ml 1099 ml 1228 ml 1339 ml Output Total 400 ml 850 ml 450 ml 650 ml Balance 716 ml 249 ml 778 ml 689 ml IV Total 916 ml 374 ml 425 ml 866 ml Tube Feeding 0 ml 125 ml 203 ml 173 ml Other 200 ml 600 ml 600 ml 300 ml Output Urine Total 350 ml 850 ml 450 ml 550 ml Stool Total 50 ml 0 ml 0 ml 100 ml Result Diagram: 03/21/17 0302 03/22/17 4487 Objective Remarks PHYSICAL EXAMINATION GENERAL: This moderately obese elderly man is responsive, assisting the ventilator. HEENT: Head normocephalic. Pupils are reactive. Throat has some secretions. NECK: No bruits or thyroid enlargement. CHEST: Equal movements with diminished breath sounds at the bases with occ wheeze and basilar crackles. HEART: The heart sounds are regular, S1 and S2. No murmur. ABDOMEN: Soft, obese, without masses. No organomegaly. Bowel sounds are faint. EXTREMITIES: Edema 1+ with decreased pulses . NEUROLOGIC: Awake and responds.Reflexes 1 + SKIN: Warm and dry. Assessment and Plan Assessment and Plan IMPRESSION 1. Hypercapnic respiratory failure and hypoxemic respiratory failure. 2. COPD with chronic bronchitis and acute exacerbation. 3. Congestive heart failure. 4. Cardiomyopathy with ischemic heart disease. 5. Hypertension and hyperlipidemia. 6. Possible obstructive sleep apnea. 7. pulmonary HTN. Plan : 1. Wean O2 to keep sat >92. 2. Trach when stable.D/W here. 3. Reduce sedation 4. Tube feeds at 50 CC. 5. Cont daily Lasix 40 mg. 6. Continue antibiotics. 7. Cont Heparin drip.Hold plavix Bri Stout MD Mar 22, 2017 12:53
--- NOTE | 2017-03-22 14:07 | HHI.IDPN ---
Subjective Subjective Remarks Notes reviewed Temps low grade PEEP down to 10 S/P PEG 03/20 Plans for trach Sunday BP ok Good UO Antibiotics Vancomycin Levaquin Lines PIV Past Medical History Reviewed Allergies: Coded Allergies: No Known Allergies (Verified , 02/23/17) Objective . Vital Signs Date Time Temp Pulse Resp B/P Pulse Ox O2 Delivery O2 Flow Rate FiO2 03/22/17 12:39 92 60 03/22/17 12:00 98.7 97 27 114/65 90 03/22/17 12:00 60 03/22/17 12:00 97 03/22/17 10:00 70 03/22/17 08:00 98.7 69 23 97/59 91 03/22/17 08:00 69 03/22/17 08:00 60 03/22/17 08:00 91 60 03/22/17 06:00 89 03/22/17 04:17 92 60 03/22/17 04:00 98.5 118 20 163/70 94 03/22/17 04:00 118 03/22/17 04:00 60 03/22/17 02:00 114 03/22/17 01:15 92 60 03/22/17 00:00 98.8 101 22 98/53 90 03/22/17 00:00 101 03/22/17 00:00 60 03/21/17 22:08 93 60 03/21/17 22:00 97 03/21/17 20:00 123 03/21/17 20:00 60 03/21/17 20:00 100.2 116 20 110/64 92 03/21/17 19:50 93 60 03/21/17 18:00 123 03/21/17 16:00 60 03/21/17 16:00 123 03/21/17 16:00 100.1 123 14 147/88 92 03/21/17 15:12 92 60 03/21/17 03/21/17 03/22/17 15:00 23:00 07:00 Intake Total 1099 ml 1228 ml 1339 ml Output Total 850 ml 450 ml 650 ml Balance 249 ml 778 ml 689 ml IV Total 374 ml 425 ml 866 ml Tube Feeding 125 ml 203 ml 173 ml Other 600 ml 600 ml 300 ml Output Urine Total 850 ml 450 ml 550 ml Stool Total 0 ml 0 ml 100 ml . Laboratory Tests Test 03/21/17 03:02 White Blood Count 12.2 TH/MM3 Red Blood Count 3.80 MIL/MM3 Hemoglobin 11.1 GM/DL Hematocrit 35.0 % Mean Corpuscular Volume 92.0 FL Mean Corpuscular Hemoglobin 29.1 PG Mean Corpuscular Hemoglobin 31.7 % Concent Red Cell Distribution Width 16.5 % Platelet Count 171 TH/MM3 Mean Platelet Volume 9.8 FL Neutrophils (%) (Auto) 92.1 % Lymphocytes (%) (Auto) 2.6 % Monocytes (%) (Auto) 5.0 % Eosinophils (%) (Auto) 0.1 % Basophils (%) (Auto) 0.2 % Neutrophils # (Auto) 11.2 TH/MM3 Lymphocytes # (Auto) 0.3 TH/MM3 Monocytes # (Auto) 0.6 TH/MM3 Eosinophils # (Auto) 0.0 TH/MM3 Basophils # (Auto) 0.0 TH/MM3 CBC Comment AUTO DIFF Differential Comment AUTO DIFF CONFIRMED Laboratory Tests Test 03/21/17 03/22/17 03:02 03:31 Sodium Level 150 MEQ/L Potassium Level 4.0 MEQ/L Chloride Level 110 MEQ/L Carbon Dioxide Level 35.0 MEQ/L Anion Gap 5 MEQ/L Blood Urea Nitrogen 40 MG/DL Creatinine 0.62 MG/DL 0.58 MG/DL Estimat Glomerular Filtration 129 ML/MIN 139 ML/MIN Rate Random Glucose 119 MG/DL Calcium Level 9.7 MG/DL Imaging Chest X-Ray 03/21/17 0000 Signed Impressions: Service Date/Time: Tuesday, March 21, 2017 02:18 - CONCLUSION: Left lower lung infiltrate. Otherwise, no significant change. Remington Meng MD Chest X-Ray 03/18/17 0000 Signed Impressions: Service Date/Time: Saturday, March 18, 2017 08:43 - CONCLUSION: Left lower lobe consolidation/atelectasis and likely some effusion. Nick Menchaca MD Chest X-Ray 03/11/17 0600 Signed Impressions: Service Date/Time: Saturday, March 11, 2017 04:03 - CONCLUSION: 1. Bilateral lower lobe atelectasis versus pneumonia. There has been no significant change when compared to the prior exam. Lavell Maciel MD CT Angiography 03/02/17 1206 Signed Impressions: Service Date/Time: Thursday, March 02, 2017 13:46 - CONCLUSION: 1. No pulmonary embolus identified. 2. Small bilateral effusions with significant dependent atelectasis bilaterally. Riley Bob MD Lower Extremity Ultrasound 02/27/17 0000 Signed Impressions: Service Date/Time: Monday, February 27, 2017 08:31 - CONCLUSION: Normal examination. Nick Farrell MD Abdomen X-Ray 02/24/17 0000 Signed Impressions: Service Date/Time: Friday, February 24, 2017 10:43 - CONCLUSION: 1. Nasogastric tube just across the GE junction. 2. Minimal nonspecific bowel gas dilatation. Artur Bob MD FACR Physical Exam GENERAL: awake, on the vent, not in respiratory distress. Following simple commands SKIN: Warm and moist. No generalized rash. HEENT: [place] conjunctivae. No scleral icterus. Endotracheal tube is in the mouth. NECK: Supple, nontender, no meningeal signs. CARDIOVASCULAR: Regular rate and rhythm without murmurs, gallops, or rubs. RESPIRATORY: Coarse BS kade, few rhonchi GASTROINTESTINAL: Abdomen soft, obese, not tender, nondistended. Bowel sounds are present. MUSCULOSKELETAL: Lower extremities without clubbing, cyanosis or pedal edema. BUE are edematous. NEUROLOGICAL: Awake, focusing, following simple commands, weak hand rn rehabilitation, did not move feet or toes PSYCH: Unable to assess LINE: PIV with no evidence of infection : Kaiser catheter in place, with small amount of sediment Assessment & Plan Remarks IMPRESSION Leukocytosis, etiology? - persistent Fevers - ?partly due to vein clots; cephalic are superficial veins - ?drug fevers - intermittent Respiratory failure - has known ischemic cardiomyopathy BC with Coag Neg STaph - ?significance Known COPD Obesity RECOMMENDATION Continue IV Vanco Continue Levaquin Follow temps Monitor progress Possibly D/C Abx tomorrow Plans for trach noted SundayHeather palma MD Mar 22, 2017 14:07
[2017-03-22] MEDS: ATORVASTATIN 40 MG TAB PO SCH (21:08)
[2017-03-23] VITALS (19 sets, daily range): BP systolic 92–143; BP diastolic 52–98; PULSE 69–111; RESP 13–22; TEMP 97.7–98.7; O2SAT 91–98
[2017-03-23] MEDS: HEPARIN-D5W INJ 250 ML IV SCH ×2 (00:27→18:43)
[2017-03-23] MEDS: PROPOFOL 1000 MG/100 ML INJ 100 ML IV SCH ×5 (03:34→20:14)
[2017-03-23] MEDS: CHLORHEXIDINE GLUCONATE 2 % 1 PACK (2 CLOTHS) TOP SCH (04:00)
[2017-03-23] MEDS: INSULIN NovoLIN REGULAR SUPPLEMENTAL SCALE SQ SCH ×4 (05:00→22:50)
[2017-03-23] MEDS: FREE WATER G-TUBE SCH ×3 (06:00→22:00)
[2017-03-23] MEDS: CHLORHEXIDINE 0.12% (ORAL KIT) 15 ML CUP MT SCH ×2 (08:00→20:12)
[2017-03-23] MEDS: LISINOPRIL 5 MG TAB PO SCH (09:00)
[2017-03-23 09:15] LABS: APTT (PATIENT) 74.9 SEC (24.3-30.1)
[2017-03-23] MEDS: methylPREDNISolone SOD SUCC 40 MG/1 ML VIAL IV PUSH SCH ×2 (09:40→20:12)
[2017-03-23] MEDS: SENNOSIDES SYRUP 8.8 MG/5 ML CUP PO SCH (09:40)
[2017-03-23] MEDS: LEVOFLOXACIN 750 MG TAB PO SCH (09:40)
[2017-03-23] MEDS: PANTOPRAZOLE SODIUM 40 MG VIAL IV SCH (09:40)
[2017-03-23] MEDS: FUROSEMIDE 40 MG/4 ML VIAL IV PUSH SCH (09:40)
[2017-03-23] MEDS: DOCUSATE SODIUM 100 MG/10 ML UDC PO SCH ×2 (09:41→20:13)
[2017-03-23] MEDS: METOPROLOL TARTRATE 25 MG TAB PO SCH ×2 (09:41→20:36)
[2017-03-23] MEDS: fentaNYL DRIP 250 ML IV SCH (11:56)
--- NOTE | 2017-03-23 12:47 | HHI.IDPN ---
Subjective Subjective Remarks Notes reviewed Temps ok FiO2 at 50%, PEEP 10 Trach for Sunday BP ok Minimal sedation Following commands Tolerating TF per PEG Antibiotics Vancomycin Levaquin Lines PIV Past Medical History Reviewed Allergies: Coded Allergies: No Known Allergies (Verified , 02/23/17) Objective . Vital Signs Date Time Temp Pulse Resp B/P Pulse Ox O2 Delivery O2 Flow Rate FiO2 03/23/17 12:12 92 50 03/23/17 09:14 95 50 03/23/17 08:00 60 03/23/17 06:00 93 03/23/17 04:38 96 60 03/23/17 04:00 98.0 92 20 127/67 94 03/23/17 04:00 60 03/23/17 04:00 92 03/23/17 02:00 91 03/23/17 01:12 92 60 03/23/17 00:00 93 03/23/17 00:00 98.3 93 22 143/98 93 03/23/17 00:00 60 03/22/17 22:08 93 60 03/22/17 22:00 105 03/22/17 20:00 60 03/22/17 20:00 97.7 74 24 89/51 92 03/22/17 20:00 74 03/22/17 19:12 94 60 03/22/17 18:00 86 03/22/17 16:59 94 60 03/22/17 16:00 89 03/22/17 16:00 60 03/22/17 16:00 97.6 89 27 123/66 89 03/22/17 14:00 81 03/22/17 03/22/17 03/23/17 15:00 23:00 07:00 Intake Total 1340 ml 1025 ml 1375 ml Output Total 1350 ml 450 ml 550 ml Balance -10 ml 575 ml 825 ml IV Total 493 ml 441 ml 865 ml Tube Feeding 247 ml 384 ml 310 ml Other 600 ml 200 ml 200 ml Output Urine Total 1350 ml 400 ml 450 ml Stool Total 0 ml 50 ml 100 ml . Laboratory Tests Test 03/22/17 03:31 Creatinine 0.58 MG/DL Estimat Glomerular Filtration 139 ML/MIN Rate Imaging Chest X-Ray 03/21/17 0000 Signed Impressions: Service Date/Time: Tuesday, March 21, 2017 02:18 - CONCLUSION: Left lower lung infiltrate. Otherwise, no significant change. Remington Meng MD Chest X-Ray 03/18/17 0000 Signed Impressions: Service Date/Time: Saturday, March 18, 2017 08:43 - CONCLUSION: Left lower lobe consolidation/atelectasis and likely some effusion. Nick Menchaca MD Chest X-Ray 03/11/17 0600 Signed Impressions: Service Date/Time: Saturday, March 11, 2017 04:03 - CONCLUSION: 1. Bilateral lower lobe atelectasis versus pneumonia. There has been no significant change when compared to the prior exam. Lavell Maciel MD CT Angiography 03/02/17 1206 Signed Impressions: Service Date/Time: Thursday, March 02, 2017 13:46 - CONCLUSION: 1. No pulmonary embolus identified. 2. Small bilateral effusions with significant dependent atelectasis bilaterally. Riley Bob MD Lower Extremity Ultrasound 02/27/17 0000 Signed Impressions: Service Date/Time: Monday, February 27, 2017 08:31 - CONCLUSION: Normal examination. Nick Farrell MD Abdomen X-Ray 02/24/17 0000 Signed Impressions: Service Date/Time: Friday, February 24, 2017 10:43 - CONCLUSION: 1. Nasogastric tube just across the GE junction. 2. Minimal nonspecific bowel gas dilatation. Artur Bob MD FACR Physical Exam GENERAL: awake, on the vent, not in respiratory distress. Following simple commands SKIN: Warm and moist. No generalized rash. HEENT: [place] conjunctivae. No scleral icterus. Endotracheal tube is in the mouth. NECK: Supple, nontender, no meningeal signs. CARDIOVASCULAR: Regular rate and rhythm without murmurs, gallops, or rubs. RESPIRATORY: Coarse BS kade, few rhonchi GASTROINTESTINAL: Abdomen soft, obese, not tender, nondistended. Bowel sounds are present. MUSCULOSKELETAL: Lower extremities without clubbing, cyanosis or pedal edema. BUE are edematous. NEUROLOGICAL: Awake, focusing, following simple commands, moving extremities PSYCH: tracking, calm, no anxioius LINE: PIV with no evidence of infection : Kaiser catheter in place, with small amount of sediment Assessment & Plan Remarks IMPRESSION Leukocytosis, etiology? - persistent, stable Fevers, better - ?partly due to vein clots; cephalic are superficial veins - ?drug fevers - intermittent Respiratory failure - has known ischemic cardiomyopathy BC with Coag Neg STaph - ?significance Known COPD Obesity RECOMMENDATION Stop Vanco and Levaquin Monitor off Abx Follow temps Monitor progress Plans for trach noted Sunday D/W RN Dr Hensley available if neede this Heather Young MD Mar 23, 2017 12:47
--- NOTE | 2017-03-23 12:51 | HHI.PR ---
Subjective Remarks Awake and on the vent at 50 % FIO2, and PEEP 10 cm. Tolerates feeds. For Trach sunday .Off Plavix Objective Vital Signs Date Time Temp Pulse Resp B/P Pulse Ox O2 Delivery O2 Flow Rate FiO2 03/23/17 12:12 92 50 03/23/17 09:14 95 50 03/23/17 08:00 60 03/23/17 06:00 93 03/23/17 04:38 96 60 03/23/17 04:00 98.0 92 20 127/67 94 03/23/17 04:00 60 03/23/17 04:00 92 03/23/17 02:00 91 03/23/17 01:12 92 60 03/23/17 00:00 93 03/23/17 00:00 98.3 93 22 143/98 93 03/23/17 00:00 60 03/22/17 22:08 93 60 03/22/17 22:00 105 03/22/17 20:00 60 03/22/17 20:00 97.7 74 24 89/51 92 03/22/17 20:00 74 03/22/17 19:12 94 60 03/22/17 18:00 86 03/22/17 16:59 94 60 03/22/17 16:00 89 03/22/17 16:00 60 03/22/17 16:00 97.6 89 27 123/66 89 03/22/17 14:00 81 I/O 03/22/17 03/22/17 03/22/17 03/23/17 03/23/17 03/23/17 07:00 15:00 23:00 07:00 15:00 23:00 Intake Total 1339 ml 1340 ml 1025 ml 1375 ml Output Total 650 ml 1350 ml 450 ml 550 ml Balance 689 ml -10 ml 575 ml 825 ml IV Total 866 ml 493 ml 441 ml 865 ml Tube Feeding 173 ml 247 ml 384 ml 310 ml Other 300 ml 600 ml 200 ml 200 ml Output Urine Total 550 ml 1350 ml 400 ml 450 ml Stool Total 100 ml 0 ml 50 ml 100 ml Result Diagram: 03/21/17 0302 03/22/17 0331 Objective Remarks PHYSICAL EXAMINATION GENERAL: This moderately obese elderly man is responsive, assisting the ventilator. HEENT: Head normocephalic. Pupils are reactive. Throat has some secretions. NECK: No bruits or thyroid enlargement. CHEST: Equal movements with diminished breath sounds at the bases with occ basilar crackles. HEART: The heart sounds are regular, S1 and S2. No murmur. ABDOMEN: Soft, obese, without masses. No organomegaly. Bowel sounds are faint. EXTREMITIES: Edema with decreased pulses . NEUROLOGIC: Awake and responds.Reflexes 1 + SKIN: Warm and dry. Assessment and Plan Assessment and Plan IMPRESSION 1. Hypercapnic respiratory failure and hypoxemic respiratory failure. 2. COPD with chronic bronchitis and acute exacerbation. 3. Congestive heart failure. 4. Cardiomyopathy with ischemic heart disease. 5. Hypertension and hyperlipidemia. 6. Possible obstructive sleep apnea. 7. pulmonary HTN. Plan : 1. Wean O2 to keep sat >92. 2. Trach Sunday 3. Reduce sedation 4. Tube feeds at 50 CC. 5. Cont daily Lasix 40 mg. 6. Continue antibiotics. 7. Hold plavix Bri Stout MD Mar 23, 2017 12:50
--- NOTE | 2017-03-23 16:10 | HHI.CCPN ---
Subjective Remarks/Hospital Course The patient is a 66-year-old male with past medical history of COPD, cardiomyopathy, hypertension, gastroesophageal reflux disease, hyperlipidemia and coronary artery disease. The patient presented to [facility] ED with a 2-week history of progressive worsening shortness of breath. On arrival to the ED he was initially placed on a non-rebreather mask and ABG was performed which showed acute hypercapnic respiratory failure with a pH of 7.14, CO2 121, pAO2 141, bicarb 40, sats 93%. His laboratory data significant for hyperkalemia with potassium level 6.0 and acute renal failure with a BUN of 43 and creatinine 2.07 respectively. The chest x-ray showed cardiomegaly and findings of vascular congestion without overt failure. In the ED the patient was intubated with etomidate and rocuronium and placed on full mechanical ventilation. In addition, he is scheduled to receive 10 units IV regular insulin, 1 amp of D50 and calcium gluconate for hyperkalemia. He received cefepime, azithromycin, Solu-Medrol 125 milligrams IV push and bronchodilator treatment. When seen the patient is on Diprivan infusion for sedation and full mechanical ventilation. Per the patient is not on any oxygen at home and he occasionally smokes cigarettes. 02/24 Patient is intubated and sedated with Diprivan and Fentanyl. Switched to PC/ AC with RR 12, IP:24, IT:1.06, PEEP: 8 and FIO2 100%. CXR this morning showed interval development of bilateral perihilar and lower lung zone airspace opacity he was given Lasix 60mg total overnight. 02/25 Patient remains sedated and intubated with Diprivan and Fentanyl. Afebrile.On PC/AC with RR 12, IP:22, IT:1.10, PEEP:10, FIO2 70%. Afebrile. Renal function worse today with Cr: 1.90 from 1.72 UO: 1150ml in 24 hrs 02/26 No acute events overnight. Sedated with Fentanyl and Diprivan and intubated. Afebrile. His O2 requirements is less now on PC/AC with IP:22, IT: 1.1 with PEEP: 10 and FIO2 55%. Renal function improving with Cr: 1.42 today from 1.90. Tolerating tube feeds. 02/27 Patient remains sedated with Diprivan and Fentanyl infusion and intubated. Afebrile. 02/28: Remains sedated, orally intubated on mechanical ventilation. Being diuresed with Bumex. Tolerating tube feeds. 03/01: Remains sedated, orally intubated on mechanical ventilation. Being diabetes. Remains on PEEP of 10 and FiO2 60% 03/02 Patient remains sedated with Diprivan and Fentanyl and intubated. On PC/AC with PEEP: 10 and FIO2 80% overnight and sats 93-94%. Afebrile. 03/03: The patient remains on high respiratory requirements PEEP of 10, and FiO2 70%. 03/04: Tmax 99.9. Overnight the patient was noted to have desaturations the patient received a bolus of midazolam and fentanyl for ventilator dyssynchrony. The patient was redosed with Diamox with approximately 2.5 L diuresis in the last 12 hours. The patient continues on an FiO2 of 70% with PEEP of 10 to maintain an O2 sat of 90%. 03/05: Afebrile. Patient's FiO2 remains at 60% to maintain O2sat ranging in 92% . Future plans for tracheostomy discussed with when ventilator requirements are decreased. Patient currently is on a PEEP of 10. Patient receiving multiple doses of diuretics chest x-ray still showing increased vascular congestion. Cardiology following metalazone added to medication regimen per cardiology for diuresis. 03/06: Patient's O2 requirements were increased overnight to FiO2 of 90%. The patient's FiO2 has been decreased now currently to 70% O2 sat is 90% ABG is pending. The patient's diuresis effective, 1 kg weight loss in 24 hours. 03/07: The patient continues to have effective diuresis. The patient's O2 requirements currently FiO2 is 70% to maintain a sat of 90-91%. Discussion with Ms. London yesterday, she would like to discuss with palliative team goals of care. Palliative care consult initiated. 03/08: The patient was less responsive to diuretics today, positive weight balance last 24 hours. The patient was placed on a Lasix infusion, noted occasional PVCs on telemetry. Patient potassium repletion ongoing, schedule potassium PO intake increased to 50 mEq twice a day. Free water flushes placed on hold, was sodium level 145 will continue to monitor. Chest x-ray shows slight improvement. Continued management of ventilator settings ARDS protocol, maintaining PaO2 60 or greater and adjusting vent settings based on PaO2. Sedation vacation attempted today by SENIOR BUDGET ANALYST, GCS 11T. Noted WBC elevation today ID consulted. 03/09: Today the patient was noted to have increasing FiO2 requirements with a PaO2 of 61. FiO2 was increased to 100%, PEEP was gradually increased to 12, then 14. The patient subsequently became hypotensive, likely due to increasing PEEP, but chest x-ray also obtained to rule out pneumothorax which was clear. The patient subsequently was laced on phenylephrine low-dose 20 mcgs which was eventually weaned off. The patient was placed on PEEP at 7 and FiO2 of 100%, sedation was weaned to lower dose. Palliative care also discussed with goals of care and the patient was made DNR. 03/10 noted creatinine elevation last night, Lasix discontinued. Dobutamine initiated per cardiology this morning. The patient continues to have high requirements on a PEEP of 8 and FiO2 of 100% his PaO2 49.2. PEEP has been increased plan to initiate Flolan. 03/11: Tmax 100.5. FRANK resolved with dobutamine infusion, heart rate 110. Microbiology report bacteremia gram-positive cocci and sputum. Patient currently on Diflucan. Will begin Linezolid in the setting of recent FRANK and oliguria, and await further recommendations from infectious disease assessment consultant. Respiratory status deteriorating. The patient was placed on Flolan last night PaO2 67. Patient remains on a PEEP of 10, unable to advance secondary to hypotension. 03/12 Patient remains sedated with Diprivan, Fentanyl and intubated. On Dobutamine 2.5 mics and Flolan. Remains On PC/AC with RR 12, IP:22, IT:1.20, PEEP;10 and FIo2 90%. Afebrile. 03/13 Patient is sedated with Diprivan and Fentanyl and intubated. On PC/AC with PEEP:12, FIO2 80%. Tmax 101.7 Remains on Dobutamine and Flolan. 03/14 Patient remains sedated and intubated. On PC/AC with PEEP:12 and FIO2 100% . T: 101.5 last night. On Flolan off Dobutamine. 03/15 No acute events overnight. Sedated with Diprivan and Fentanyl. On PC/AC with PEEP: 12, FIO2 down to 70%. Tmax 101.6. On Flolan nebs. 03/16 Patient remains sedated and intubated On PC/AC with decrease in FIO2 requirements down to 65% FIO2 with PEEP: 12. Tmax 101.4. On Heparin drip. 03/17 Patient remains sedated and intubated. T: 99.7, heparin drip turned off as patient had bloody secretions with suctioning and Hemoccult was positive. 03/18 No acute events overnight. Remains sedated and intubated. Tmax 102.8. Off heparin drip patient has minimal bloody secretions. 03/19 Patient remains sedated with Diprivan and Fentanyl intubated. Afebrile. 03/20 No acute events overnight. Sedated and intubated. Tmax : 100.8. NPO for EGD and PEG tube placement today. 03/21 remains sedated, orally intubated on mechanical ventilation. Flolan inhaled stopped today. Switched to PRVC mode mechanical ventilation from PC/AC. 03/22:Remains sedated, orally intubated on mechanical ventilation. Deep decreased to +10, FiO2 55%. 03/23: Arouses on lightening sedation, moving all 4 extremities. Orally intubated on mechanical ventilation. On PEEP of +10, FiO2 50% Objective Vital Signs Date Time Temp Pulse Resp B/P Pulse Ox O2 Delivery O2 Flow Rate FiO2 03/23/17 12:12 92 50 03/23/17 08:00 98.7 92 16 130/70 Intake and Output 03/22/17 03/22/17 03/23/17 08:00 16:00 00:00 Intake Total 1339 ml 1340 ml 1025 ml Output Total 650 ml 1350 ml 450 ml Balance 689 ml -10 ml 575 ml Result Diagram: 03/21/17 0302 03/22/17 0331 Imaging Last Impressions Chest X-Ray 03/18/17 0000 Signed Impressions: Service Date/Time: Saturday, March 18, 2017 08:43 - CONCLUSION: Left lower lobe consolidation/atelectasis and likely some effusion. Nick Menchaca MD Upper Extremity Ultrasound 03/14/17 0000 Signed Impressions: Service Date/Time: Tuesday, March 14, 2017 18:49 - CONCLUSION: 1. Thrombus throughout the cephalic veins bilaterally. These are superficial venous structures. 2. Questionable minimal thrombus within the left subclavian vein. Garrick Hinton Jr., MD CT Angiography 03/02/17 1206 Signed Impressions: Service Date/Time: Thursday, March 02, 2017 13:46 - CONCLUSION: 1. No pulmonary embolus identified. 2. Small bilateral effusions with significant dependent atelectasis bilaterally. Riley Bob MD Lower Extremity Ultrasound 02/27/17 0000 Signed Impressions: Service Date/Time: Monday, February 27, 2017 08:31 - CONCLUSION: Normal examination. Nick Farrell MD Abdomen X-Ray 02/24/17 0000 Signed Impressions: Service Date/Time: Friday, February 24, 2017 10:43 - CONCLUSION: 1. Nasogastric tube just across the GE junction. 2. Minimal nonspecific bowel gas dilatation. Artur Bob MD FACR Objective Remarks GENERAL: Patient is 66 yo obese male intubated and sedated SKIN: Warm and dry. HEAD: Normocephalic. EYES: No scleral icterus. No injection or drainage. NECK: Supple, trachea midline. No JVD or lymphadenopathy. CARDIOVASCULAR:Tachycardic without murmurs, gallops, or rubs. RESPIRATORY: On mechanical ventilation, orally intubated, Breath sounds equal bilaterally. Few Coarse BS GASTROINTESTINAL: Abdomen soft, non-tender, nondistended. OGT, tube feedings infusing MUSCULOSKELETAL: 2+ bilateral edema in upper extremities. Neuro: Sedated, intubated Date of Removal: Mar 04, 2017 Line: Central Venous Catheter Side: Right A/P Assessment and Plan 1. Acute hypercapnic and hypoxemic respiratory failure. 2. COPD exacerbation. 3. Acute renal failure. 4. Hypernatremia 5. Obstructive sleep apnea and morbid obesity. 6. Ischemic dilated Cardiomyopathy. S/P AICD 03/2015 7. History of coronary artery disease. 8. Gastroesophageal reflux disease. 9. Hypertension. 10. Hyperlipidemia. 11 Pulm edema 12. Acute on chronic systolic and diastolic CHF 13. Pulmonary hypertension 14. Bacteremia Plan: Neuro: On Diprivan and Fentanyl infusion for sedation. Daily sedation vacation when appropriate. Monitor neuro status CV: Monitor HR and BP keep MAP>65mmHg. On Lopressor 12.5mg BID for rate control. On aspirin 325 milligrams p.o. daily and Plavix 75 mg p.o. daily - holding starting 03/22 in anticipation of tracheostomy. Prinivil 5mg daily 01/2017 Echo showed EF 40-45%, nl LV diastolic function, No RWMA Cardiology following-Dr. Cole. Pulm: PRVC mode mechanical ventilation: rate 12 tidal volume 600 I time 1.1 second PEEP 10 FiO2 50% Continue with vent support and maintain sats above 92%. Bronchodilators every 4 hours, Solu-Medrol 40 mg IV BID. Pulm-Dr. Lashell Padron CXR: LLL consolidation/Atelectasis CTA chest 03/02 showed no PE, small pleural effusions Flolan inhaled nebulizer treatment stopped 03/21 : Monitor renal function Is and Os and avoid nephrotoxins. Electrolytes replacement per protocol. Lasix 40mg daily Decrease Free water to 200 ml Q8 on 03/22, monitor sodium level. GI: On Protonix 40 mg IV daily for GI prophylaxis. TF(Glucerna 1.5 @45ml/hr. S/p PEG tube placement 03/20 Senna, Colace for bowel regimen, 02/24 KUB abdomen: Minimal non-specific bowel gas dilatation GI is following for anemia and positive Hemoccult. ID:Continue with abx per ID(Vancomycin, Levaquin) monitor for signs of infections ( Fever, WBC) 03/16 C-dif PCR negative 03/14: BC: NGTD 03/14: Normal resp tiffany, urine cx: No growth 03/09 Repeat Bld cultures-staph Epi, coag negative staph- likely contaminant 03/09 Repeat sputum culture-staph aureus Heme: Monitor CBC. Endo: SSI with Accu-Chek q. 6-hour for glycemic control. GI prophylaxis with Protonix 40 mg BID and DVT prophylaxis with SCDs, heparin drip on hold for positive Hemoccult. Doppler US UE: 03/14-Thrombus throughout the cephalic veins bilaterally. ? minimal thrombus within the left subclavian vein. Was off Heparin drip as patient had bloody secretions with suctioning ( resolved ) and positive Hemoccult. Heparin resumed (cleared by GI). Doppler US LE No DVT on 02/27 Dispo: Discussed patient with SENIOR BUDGET ANALYST. Palliative care is following. Unable to wean off mechanical ventilation currently. He will need a tracheostomy, consulted Dr. Kirkland and held ASA/plavix in anticipation. CCT 30 mins Ari Mackey MD Mar 23, 2017 16:10
[2017-03-23] MEDS: ATORVASTATIN 40 MG TAB PO SCH (20:13)
[2017-03-23] MEDS ORDERED: PHARMACY ORDERED LAB ONE (23:45)
[2017-03-24] VITALS (18 sets, daily range): BP systolic 90–132; BP diastolic 53–83; PULSE 63–105; RESP 12–28; TEMP 97.9–98.8; O2SAT 92–95
[2017-03-24] MEDS: CHLORHEXIDINE GLUCONATE 2 % 1 PACK (2 CLOTHS) TOP SCH (02:43)
[2017-03-24] MEDS: PROPOFOL 1000 MG/100 ML INJ 100 ML IV SCH ×7 (02:48→22:56)
[2017-03-24] MEDS: INSULIN NovoLIN REGULAR SUPPLEMENTAL SCALE SQ SCH ×4 (05:00→23:00)
[2017-03-24] MEDS: FREE WATER G-TUBE SCH ×3 (05:37→22:00)
[2017-03-24 07:00] LABS: HEMATOCRIT 33.8 % (39.0-51.0); MEAN CELL VOLUME 91.9 FL (80.0-100.0); MEAN CORPUSCULAR HEMOGLOBIN 29.1 PG (27.0-34.0); MEAN CORPUSCULAR HGB CONC 31.7 % (32.0-36.0); PLATELET COUNT 138 TH/MM3 (150-450); RED BLOOD COUNT 3.67 MIL/MM3 (4.50-5.90); RED CELL DISTRIBUTION WIDTH 16.5 % (11.6-17.2); REVIEW FLAG FINAL; WHITE BLOOD COUNT 14.5 TH/MM3 (4.0-11.0)
[2017-03-24] MEDS: HEPARIN-D5W INJ 250 ML IV SCH ×2 (07:03→19:05)
[2017-03-24] MEDS: LISINOPRIL 5 MG TAB PO SCH (08:00)
[2017-03-24] MEDS: methylPREDNISolone SOD SUCC 40 MG/1 ML VIAL IV PUSH SCH ×2 (08:00→20:47)
[2017-03-24] MEDS: CHLORHEXIDINE 0.12% (ORAL KIT) 15 ML CUP MT SCH ×2 (08:00→20:46)
[2017-03-24] MEDS: SENNOSIDES SYRUP 8.8 MG/5 ML CUP PO SCH (08:00)
[2017-03-24] MEDS: DOCUSATE SODIUM 100 MG/10 ML UDC PO SCH ×2 (08:00→20:47)
[2017-03-24] MEDS: PANTOPRAZOLE SODIUM 40 MG VIAL IV SCH (08:01)
[2017-03-24] MEDS: FUROSEMIDE 40 MG/4 ML VIAL IV PUSH SCH (08:01)
[2017-03-24] MEDS: METOPROLOL TARTRATE 25 MG TAB PO SCH ×2 (09:00→20:47)
--- NOTE | 2017-03-24 11:14 | HHI.CCPN ---
Subjective Remarks/Hospital Course The patient is a 66-year-old male with past medical history of COPD, cardiomyopathy, hypertension, gastroesophageal reflux disease, hyperlipidemia and coronary artery disease. The patient presented to [facility] ED with a 2-week history of progressive worsening shortness of breath. On arrival to the ED he was initially placed on a non-rebreather mask and ABG was performed which showed acute hypercapnic respiratory failure with a pH of 7.14, CO2 121, pAO2 141, bicarb 40, sats 93%. His laboratory data significant for hyperkalemia with potassium level 6.0 and acute renal failure with a BUN of 43 and creatinine 2.07 respectively. The chest x-ray showed cardiomegaly and findings of vascular congestion without overt failure. In the ED the patient was intubated with etomidate and rocuronium and placed on full mechanical ventilation. In addition, he is scheduled to receive 10 units IV regular insulin, 1 amp of D50 and calcium gluconate for hyperkalemia. He received cefepime, azithromycin, Solu-Medrol 125 milligrams IV push and bronchodilator treatment. When seen the patient is on Diprivan infusion for sedation and full mechanical ventilation. Per the patient is not on any oxygen at home and he occasionally smokes cigarettes. 02/24 Patient is intubated and sedated with Diprivan and Fentanyl. Switched to PC/ AC with RR 12, IP:24, IT:1.06, PEEP: 8 and FIO2 100%. CXR this morning showed interval development of bilateral perihilar and lower lung zone airspace opacity he was given Lasix 60mg total overnight. 02/25 Patient remains sedated and intubated with Diprivan and Fentanyl. Afebrile.On PC/AC with RR 12, IP:22, IT:1.10, PEEP:10, FIO2 70%. Afebrile. Renal function worse today with Cr: 1.90 from 1.72 UO: 1150ml in 24 hrs 02/26 No acute events overnight. Sedated with Fentanyl and Diprivan and intubated. Afebrile. His O2 requirements is less now on PC/AC with IP:22, IT: 1.1 with PEEP: 10 and FIO2 55%. Renal function improving with Cr: 1.42 today from 1.90. Tolerating tube feeds. 02/27 Patient remains sedated with Diprivan and Fentanyl infusion and intubated. Afebrile. 02/28: Remains sedated, orally intubated on mechanical ventilation. Being diuresed with Bumex. Tolerating tube feeds. 03/01: Remains sedated, orally intubated on mechanical ventilation. Being diabetes. Remains on PEEP of 10 and FiO2 60% 03/02 Patient remains sedated with Diprivan and Fentanyl and intubated. On PC/AC with PEEP: 10 and FIO2 80% overnight and sats 93-94%. Afebrile. 03/03: The patient remains on high respiratory requirements PEEP of 10, and FiO2 70%. 03/04: Tmax 99.9. Overnight the patient was noted to have desaturations the patient received a bolus of midazolam and fentanyl for ventilator dyssynchrony. The patient was redosed with Diamox with approximately 2.5 L diuresis in the last 12 hours. The patient continues on an FiO2 of 70% with PEEP of 10 to maintain an O2 sat of 90%. 03/05: Afebrile. Patient's FiO2 remains at 60% to maintain O2sat ranging in 92% . Future plans for tracheostomy discussed with when ventilator requirements are decreased. Patient currently is on a PEEP of 10. Patient receiving multiple doses of diuretics chest x-ray still showing increased vascular congestion. Cardiology following metalazone added to medication regimen per cardiology for diuresis. 03/06: Patient's O2 requirements were increased overnight to FiO2 of 90%. The patient's FiO2 has been decreased now currently to 70% O2 sat is 90% ABG is pending. The patient's diuresis effective, 1 kg weight loss in 24 hours. 03/07: The patient continues to have effective diuresis. The patient's O2 requirements currently FiO2 is 70% to maintain a sat of 90-91%. Discussion with Ms. London yesterday, she would like to discuss with palliative team goals of care. Palliative care consult initiated. 03/08: The patient was less responsive to diuretics today, positive weight balance last 24 hours. The patient was placed on a Lasix infusion, noted occasional PVCs on telemetry. Patient potassium repletion ongoing, schedule potassium PO intake increased to 50 mEq twice a day. Free water flushes placed on hold, was sodium level 145 will continue to monitor. Chest x-ray shows slight improvement. Continued management of ventilator settings ARDS protocol, maintaining PaO2 60 or greater and adjusting vent settings based on PaO2. Sedation vacation attempted today by [employer]EL[employer] REPORTER, GCS 11T. Noted WBC elevation today ID consulted. 03/09: Today the patient was noted to have increasing FiO2 requirements with a PaO2 of 61. FiO2 was increased to 100%, PEEP was gradually increased to 12, then 14. The patient subsequently became hypotensive, likely due to increasing PEEP, but chest x-ray also obtained to rule out pneumothorax which was clear. The patient subsequently was laced on phenylephrine low-dose 20 mcgs which was eventually weaned off. The patient was placed on PEEP at 7 and FiO2 of 100%, sedation was weaned to lower dose. Palliative care also discussed with goals of care and the patient was made DNR. 03/10 noted creatinine elevation last night, Lasix discontinued. Dobutamine initiated per cardiology this morning. The patient continues to have high requirements on a PEEP of 8 and FiO2 of 100% his PaO2 49.2. PEEP has been increased plan to initiate Flolan. 03/11: Tmax 100.5. FRANK resolved with dobutamine infusion, heart rate 110. Microbiology report bacteremia gram-positive cocci and sputum. Patient currently on Diflucan. Will begin Linezolid in the setting of recent FRANK and oliguria, and await further recommendations from infectious disease lifestyle consultant. Respiratory status deteriorating. The patient was placed on Flolan last night PaO2 67. Patient remains on a PEEP of 10, unable to advance secondary to hypotension. 03/12 Patient remains sedated with Diprivan, Fentanyl and intubated. On Dobutamine 2.5 mics and Flolan. Remains On PC/AC with RR 12, IP:22, IT:1.20, PEEP;10 and FIo2 90%. Afebrile. 03/13 Patient is sedated with Diprivan and Fentanyl and intubated. On PC/AC with PEEP:12, FIO2 80%. Tmax 101.7 Remains on Dobutamine and Flolan. 03/14 Patient remains sedated and intubated. On PC/AC with PEEP:12 and FIO2 100% . T: 101.5 last night. On Flolan off Dobutamine. 03/15 No acute events overnight. Sedated with Diprivan and Fentanyl. On PC/AC with PEEP: 12, FIO2 down to 70%. Tmax 101.6. On Flolan nebs. 03/16 Patient remains sedated and intubated On PC/AC with decrease in FIO2 requirements down to 65% FIO2 with PEEP: 12. Tmax 101.4. On Heparin drip. 03/17 Patient remains sedated and intubated. T: 99.7, heparin drip turned off as patient had bloody secretions with suctioning and Hemoccult was positive. 03/18 No acute events overnight. Remains sedated and intubated. Tmax 102.8. Off heparin drip patient has minimal bloody secretions. 03/19 Patient remains sedated with Diprivan and Fentanyl intubated. Afebrile. 03/20 No acute events overnight. Sedated and intubated. Tmax : 100.8. NPO for EGD and PEG tube placement today. 03/21 remains sedated, orally intubated on mechanical ventilation. Flolan inhaled stopped today. Switched to PRVC mode mechanical ventilation from PC/AC. 03/22:Remains sedated, orally intubated on mechanical ventilation. Deep decreased to +10, FiO2 55%. 03/23: Arouses on lightening sedation, moving all 4 extremities. Orally intubated on mechanical ventilation. On PEEP of +10, FiO2 50% 03/24: Sedated, arousable, orally intubated on mechanical ventilation. PEEP +10 , FiO2 60% today. Objective Vital Signs Date Time Temp Pulse Resp B/P Pulse Ox O2 Delivery O2 Flow Rate FiO2 03/24/17 08:44 92 60 03/24/17 06:00 69 03/24/17 04:00 98.4 12 102/57 Intake and Output 03/23/17 03/23/17 03/24/17 08:00 16:00 00:00 Intake Total 1375 ml 1252 ml 707 ml Output Total 550 ml 2000 ml 425 ml Balance 825 ml -748 ml 282 ml Result Diagram: 03/24/17 0540 03/22/17 0331 Imaging Last Impressions Chest X-Ray 03/18/17 0000 Signed Impressions: Service Date/Time: Saturday, March 18, 2017 08:43 - CONCLUSION: Left lower lobe consolidation/atelectasis and likely some effusion. Nick Menchaca MD Upper Extremity Ultrasound 03/14/17 0000 Signed Impressions: Service Date/Time: Tuesday, March 14, 2017 18:49 - CONCLUSION: 1. Thrombus throughout the cephalic veins bilaterally. These are superficial venous structures. 2. Questionable minimal thrombus within the left subclavian vein. Garrick Hinton Jr., MD CT Angiography 03/02/17 1206 Signed Impressions: Service Date/Time: Thursday, March 02, 2017 13:46 - CONCLUSION: 1. No pulmonary embolus identified. 2. Small bilateral effusions with significant dependent atelectasis bilaterally. Riley Bob MD Lower Extremity Ultrasound 02/27/17 0000 Signed Impressions: Service Date/Time: Monday, February 27, 2017 08:31 - CONCLUSION: Normal examination. Nick Farrell MD Abdomen X-Ray 02/24/17 0000 Signed Impressions: Service Date/Time: Friday, February 24, 2017 10:43 - CONCLUSION: 1. Nasogastric tube just across the GE junction. 2. Minimal nonspecific bowel gas dilatation. Artur Bob MD FACR Objective Remarks GENERAL: Patient is 66 yo obese male intubated and sedated SKIN: Warm and dry. HEAD: Normocephalic. EYES: No scleral icterus. No injection or drainage. NECK: Supple, trachea midline. No JVD or lymphadenopathy. CARDIOVASCULAR:Tachycardic without murmurs, gallops, or rubs. RESPIRATORY: On mechanical ventilation, orally intubated, Breath sounds equal bilaterally. Few Coarse BS GASTROINTESTINAL: Abdomen soft, non-tender, nondistended. OGT, tube feedings infusing MUSCULOSKELETAL: 2+ bilateral edema in upper extremities. Neuro: Sedated, arousable, orally intubated, moves all 4 extremities on lightening sedation. Date of Removal: Mar 04, 2017 Line: Central Venous Catheter Side: Right A/P Assessment and Plan 1. Acute hypercapnic and hypoxemic respiratory failure. 2. COPD exacerbation. 3. Acute renal failure. 4. Hypernatremia 5. Obstructive sleep apnea and morbid obesity. 6. Ischemic dilated Cardiomyopathy. S/P AICD 03/2015 7. History of coronary artery disease. 8. Gastroesophageal reflux disease. 9. Hypertension. 10. Hyperlipidemia. 11 Pulm edema 12. Acute on chronic systolic and diastolic CHF 13. Pulmonary hypertension 14. Bacteremia Plan: Neuro: On Diprivan and Fentanyl infusion for sedation. Daily sedation vacation when appropriate. Monitor neuro status CV: Monitor HR and BP keep MAP>65mmHg. On Lopressor 12.5mg BID for rate control. On aspirin 325 milligrams p.o. daily and Plavix 75 mg p.o. daily - holding starting 03/22 in anticipation of tracheostomy. Prinivil 5mg daily 01/2017 Echo showed EF 40-45%, nl LV diastolic function, No RWMA Cardiology following-Dr. Cole. Pulm: PRVC mode mechanical ventilation: rate 12 tidal volume 600 I time 1.1 second PEEP 10 FiO2 60% Continue with vent support and maintain sats above 92%. Bronchodilators every 4 hours, Solu-Medrol 40 mg IV BID. Pulm-Dr. Lashell Padron CXR: LLL consolidation/Atelectasis CTA chest 03/02 showed no PE, small pleural effusions Flolan inhaled nebulizer treatment stopped 03/21 : Monitor renal function Is and Os and avoid nephrotoxins. Electrolytes replacement per protocol. Lasix 40mg daily Decrease Free water to 200 ml Q8 on 03/22, monitor sodium level. GI: On Protonix 40 mg IV daily for GI prophylaxis. TF(Glucerna 1.5 @45ml/hr. S/p PEG tube placement 03/20 Senna, Colace for bowel regimen, 02/24 KUB abdomen: Minimal non-specific bowel gas dilatation GI is following for anemia and positive Hemoccult. ID:Continue with abx per ID(Vancomycin, Levaquin) monitor for signs of infections ( Fever, WBC) 03/16 C-dif PCR negative 03/14: BC: NGTD 03/14: Normal resp tiffany, urine cx: No growth 03/09 Repeat Bld cultures-staph Epi, coag negative staph- likely contaminant 03/09 Repeat sputum culture-staph aureus Heme: Monitor CBC. Endo: SSI with Accu-Chek q. 6-hour for glycemic control. GI prophylaxis with Protonix 40 mg BID and DVT prophylaxis with SCDs, heparin drip on hold for positive Hemoccult. Doppler US UE: 03/14-Thrombus throughout the cephalic veins bilaterally. ? minimal thrombus within the left subclavian vein. Was off Heparin drip as patient had bloody secretions with suctioning ( resolved ) and positive Hemoccult. Heparin resumed (cleared by GI). Doppler US LE No DVT on 02/27 Dispo: Discussed patient with [employer]RE[employer] REPORTER. Palliative care is following. Unable to wean off mechanical ventilation currently. He will need a tracheostomy, consulted Dr. Kirkland and held ASA/plavix in anticipation. CCT 30 mins Ari Mackey MD Mar 24, 2017 11:14
--- NOTE | 2017-03-24 11:32 | RADRPT ---
EXAM DATE/TIME: 03/24/2017 10:05 [facility] COMPARISON: CHEST SINGLE AP, March 21, 2017, 2:18. INDICATIONS : Shortness of breath. MEDICAL HISTORY : Chronic obstructive pulmonary disease. Myocardial infarction. SURGICAL HISTORY : Pacemaker. CABG. ENCOUNTER: Subsequent ACUITY: 3 weeks PAIN SCORE: Non-responsive. LOCATION: Bilateral chest FINDINGS: Cardiomegaly, sternotomy wires and mediastinal clips are noted. Endotracheal tube in satisfactory pos ition. Pacer/ICD device again seen. There are increasing patchy infiltrates bilaterally with subsegme ntal atelectasis at the left base. No effusions. CONCLUSION: Increasing air space disease. Jayro Barry MD on March 24, 2017 at 11:30 Board Certified Radiologist. This report was verified electronically.
[2017-03-24 12:08] LABS: APTT (PATIENT) 66.9 SEC (24.3-30.1)
[2017-03-24] MEDS: fentaNYL DRIP 250 ML IV SCH (13:33)
--- NOTE | 2017-03-24 14:59 | HHI.PR ---
Subjective Remarks Awake and on the vent at 60 % FIO2, and PEEP 10 cm. CXR is worse today. For Trach sunday .Off Plavix Objective Vital Signs Date Time Temp Pulse Resp B/P Pulse Ox O2 Delivery O2 Flow Rate FiO2 03/24/17 13:13 94 65 03/24/17 12:00 70 03/24/17 08:44 92 60 03/24/17 08:00 60 03/24/17 08:00 97.9 69 12 103/61 93 03/24/17 08:00 69 03/24/17 06:00 69 03/24/17 04:21 93 60 03/24/17 04:00 98.4 69 12 102/57 93 03/24/17 04:00 69 03/24/17 04:00 60 03/24/17 02:00 69 03/24/17 01:18 93 60 03/24/17 00:00 69 03/24/17 00:00 60 03/24/17 00:00 98.1 69 15 105/56 92 03/23/17 22:15 92 60 03/23/17 22:00 69 03/23/17 20:00 98.2 69 13 92/52 91 03/23/17 20:00 69 03/23/17 20:00 60 03/23/17 19:55 94 60 03/23/17 18:00 69 03/23/17 16:36 93 40 03/23/17 16:00 50 03/23/17 16:00 98.3 97 15 99/66 98 03/23/17 16:00 97 I/O 03/23/17 03/23/17 03/23/17 03/24/17 03/24/17 03/24/17 07:00 15:00 23:00 07:00 15:00 23:00 Intake Total 1375 ml 1252 ml 707 ml 434 ml Output Total 550 ml 2000 ml 425 ml 300 ml Balance 825 ml -748 ml 282 ml 134 ml IV Total 865 ml 493 ml 507 ml 302 ml Tube Feeding 310 ml 519 ml 0 ml 132 ml Other 200 ml 240 ml 200 ml Output Urine Total 450 ml 2000 ml 425 ml 300 ml Stool Total 100 ml # Bowel Movements 2 0 0 Result Diagram: 03/24/17 0540 03/22/17 0331 Objective Remarks PHYSICAL EXAMINATION GENERAL: This moderately obese elderly man is responsive, assisting the ventilator. HEENT: Head normocephalic. Pupils are reactive. Throat has some secretions. NECK: No bruits or thyroid enlargement. CHEST: Equal movements with diminished breath sounds at the bases with wheezes and occ basilar crackles. HEART: The heart sounds are regular, S1 and S2. No murmur. ABDOMEN: Soft, obese, without masses. No organomegaly. Bowel sounds are faint. EXTREMITIES: 1 + Edema with decreased pulses . NEUROLOGIC: Awake and responds.Reflexes 1 + SKIN: Warm and dry. Assessment and Plan Assessment and Plan IMPRESSION 1. Hypercapnic respiratory failure and hypoxemic respiratory failure. 2. COPD with chronic bronchitis and acute exacerbation. 3. Congestive heart failure. 4. Cardiomyopathy with ischemic heart disease. 5. Hypertension and hyperlipidemia. 6. Possible obstructive sleep apnea. 7. pulmonary HTN. Plan : 1. Wean O2 to keep sat >92. 2. Trach Sunday 3. Reduce sedation 4. Tube feeds at 50 CC. 5. Cont daily Lasix 40 mg. 6. Continue antibiotics. 7. Cont Solumedrol 40 mg bid. Bri Stout MD Mar 24, 2017 14:59
[2017-03-24] MEDS: ATORVASTATIN 40 MG TAB PO SCH (20:47)
[2017-03-25] VITALS (17 sets, daily range): BP systolic 81–141; BP diastolic 45–73; PULSE 77–116; RESP 15–24; TEMP 98.1–99.2; O2SAT 92–100
[2017-03-25] MEDS: CHLORHEXIDINE GLUCONATE 2 % 1 PACK (2 CLOTHS) TOP SCH (04:00)
[2017-03-25] MEDS: INSULIN NovoLIN REGULAR SUPPLEMENTAL SCALE SQ SCH ×4 (05:00→23:00)
[2017-03-25] MEDS: FREE WATER G-TUBE SCH ×3 (06:00→21:17)
[2017-03-25] MEDS: PROPOFOL 1000 MG/100 ML INJ 100 ML IV SCH ×5 (06:25→21:10)
[2017-03-25] MEDS: CHLORHEXIDINE 0.12% (ORAL KIT) 15 ML CUP MT SCH ×2 (08:00→21:10)
[2017-03-25 08:21] LABS: APTT (PATIENT) 60.6 SEC (24.3-30.1)
[2017-03-25] MEDS: LISINOPRIL 5 MG TAB PO SCH (09:17)
[2017-03-25] MEDS: PANTOPRAZOLE SODIUM 40 MG VIAL IV SCH (09:17)
[2017-03-25] MEDS: METOPROLOL TARTRATE 25 MG TAB PO SCH ×2 (09:17→21:17)
[2017-03-25] MEDS: methylPREDNISolone SOD SUCC 40 MG/1 ML VIAL IV PUSH SCH ×2 (09:17→21:16)
[2017-03-25] MEDS: SENNOSIDES SYRUP 8.8 MG/5 ML CUP PO SCH (09:17)
[2017-03-25] MEDS: FUROSEMIDE 40 MG/4 ML VIAL IV PUSH SCH (09:17)
[2017-03-25] MEDS: DOCUSATE SODIUM 100 MG/10 ML UDC PO SCH ×2 (09:17→21:17)
--- NOTE | 2017-03-25 14:22 | HHI.PR ---
Subjective Remarks Awake and on the vent at 50 % FIO2, and PEEP 10 cm.Has pink secretions from ET . For Trach Sunday . Objective Vital Signs Date Time Temp Pulse Resp B/P Pulse Ox O2 Delivery O2 Flow Rate FiO2 03/25/17 10:03 96 55 03/25/17 08:00 55 03/25/17 08:00 85 03/25/17 06:00 89 03/25/17 04:09 94 55 03/25/17 04:00 113 03/25/17 04:00 98.3 113 23 141/73 94 03/25/17 04:00 55 03/25/17 02:00 109 03/25/17 00:02 95 60 03/25/17 00:00 60 03/25/17 00:00 103 03/25/17 00:00 98.3 103 24 125/65 95 03/24/17 22:00 91 03/24/17 20:00 60 03/24/17 20:00 105 03/24/17 20:00 98.3 105 28 132/83 95 03/24/17 19:56 95 60 03/24/17 18:00 63 03/24/17 16:21 60 03/24/17 16:00 72 03/24/17 16:00 98.8 72 13 90/53 93 03/24/17 15:27 94 60 I/O 03/24/17 03/24/17 03/24/17 03/25/17 03/25/17 03/25/17 07:00 15:00 23:00 07:00 15:00 23:00 Intake Total 434 ml 1096 ml 932 ml 716 ml Output Total 300 ml 1300 ml 450 ml 350 ml Balance 134 ml -204 ml 482 ml 366 ml Intake Oral 0 ml 0 ml IV Total 302 ml 535 ml 447 ml 276 ml Tube Feeding 132 ml 321 ml 285 ml 240 ml Other 240 ml 200 ml 200 ml Output Urine Total 300 ml 1300 ml 450 ml 350 ml # Bowel Movements 0 3 0 Result Diagram: 03/24/17 0540 03/22/17 0331 Objective Remarks PHYSICAL EXAMINATION GENERAL: This moderately obese elderly man is responsive, assisting the ventilator. HEENT: Head normocephalic. Pupils are reactive. Throat has some secretions. NECK: No bruits or thyroid enlargement. CHEST: Equal movements with diminished breath sounds at the bases with wheezes and occ basilar crackles. HEART: The heart sounds are regular, S1 and S2. No murmur. ABDOMEN: Soft, obese, without masses. No organomegaly. Bowel sounds are faint. EXTREMITIES: No Edema with decreased pulses . NEUROLOGIC: Awake .Reflexes 1 + SKIN: Warm and dry. Assessment and Plan Assessment and Plan IMPRESSION 1. Hypercapnic respiratory failure and hypoxemic respiratory failure. 2. COPD with chronic bronchitis and acute exacerbation. 3. Congestive heart failure. 4. Cardiomyopathy with ischemic heart disease. 5. Hypertension and hyperlipidemia. 6. Possible obstructive sleep apnea. 7. pulmonary HTN. Plan : 1. Wean O2 to keep sat >92. 2. Trach Sunday 3. CBC,Coags in am 4. Tube feeds at 50 CC. 5. Cont daily Lasix 40 mg. 6. Continue antibiotics. 7. Taper Solumedrol 20 mg bid. Bri Stout MD Mar 25, 2017 14:22
--- NOTE | 2017-03-25 14:58 | HHI.CCPN ---
Subjective Remarks/Hospital Course The patient is a 66-year-old male with past medical history of COPD, cardiomyopathy, hypertension, gastroesophageal reflux disease, hyperlipidemia and coronary artery disease. The patient presented to [facility] ED with a 2-week history of progressive worsening shortness of breath. On arrival to the ED he was initially placed on a non-rebreather mask and ABG was performed which showed acute hypercapnic respiratory failure with a pH of 7.14, CO2 121, pAO2 141, bicarb 40, sats 93%. His laboratory data significant for hyperkalemia with potassium level 6.0 and acute renal failure with a BUN of 43 and creatinine 2.07 respectively. The chest x-ray showed cardiomegaly and findings of vascular congestion without overt failure. In the ED the patient was intubated with etomidate and rocuronium and placed on full mechanical ventilation. In addition, he is scheduled to receive 10 units IV regular insulin, 1 amp of D50 and calcium gluconate for hyperkalemia. He received cefepime, azithromycin, Solu-Medrol 125 milligrams IV push and bronchodilator treatment. When seen the patient is on Diprivan infusion for sedation and full mechanical ventilation. Per the patient is not on any oxygen at home and he occasionally smokes cigarettes. 02/24 Patient is intubated and sedated with Diprivan and Fentanyl. Switched to PC/ AC with RR 12, IP:24, IT:1.06, PEEP: 8 and FIO2 100%. CXR this morning showed interval development of bilateral perihilar and lower lung zone airspace opacity he was given Lasix 60mg total overnight. 02/25 Patient remains sedated and intubated with Diprivan and Fentanyl. Afebrile.On PC/AC with RR 12, IP:22, IT:1.10, PEEP:10, FIO2 70%. Afebrile. Renal function worse today with Cr: 1.90 from 1.72 UO: 1150ml in 24 hrs 02/26 No acute events overnight. Sedated with Fentanyl and Diprivan and intubated. Afebrile. His O2 requirements is less now on PC/AC with IP:22, IT: 1.1 with PEEP: 10 and FIO2 55%. Renal function improving with Cr: 1.42 today from 1.90. Tolerating tube feeds. 02/27 Patient remains sedated with Diprivan and Fentanyl infusion and intubated. Afebrile. 02/28: Remains sedated, orally intubated on mechanical ventilation. Being diuresed with Bumex. Tolerating tube feeds. 03/01: Remains sedated, orally intubated on mechanical ventilation. Being diabetes. Remains on PEEP of 10 and FiO2 60% 03/02 Patient remains sedated with Diprivan and Fentanyl and intubated. On PC/AC with PEEP: 10 and FIO2 80% overnight and sats 93-94%. Afebrile. 03/03: The patient remains on high respiratory requirements PEEP of 10, and FiO2 70%. 03/04: Tmax 99.9. Overnight the patient was noted to have desaturations the patient received a bolus of midazolam and fentanyl for ventilator dyssynchrony. The patient was redosed with Diamox with approximately 2.5 L diuresis in the last 12 hours. The patient continues on an FiO2 of 70% with PEEP of 10 to maintain an O2 sat of 90%. 03/05: Afebrile. Patient's FiO2 remains at 60% to maintain O2sat ranging in 92% . Future plans for tracheostomy discussed with when ventilator requirements are decreased. Patient currently is on a PEEP of 10. Patient receiving multiple doses of diuretics chest x-ray still showing increased vascular congestion. Cardiology following metalazone added to medication regimen per cardiology for diuresis. 03/06: Patient's O2 requirements were increased overnight to FiO2 of 90%. The patient's FiO2 has been decreased now currently to 70% O2 sat is 90% ABG is pending. The patient's diuresis effective, 1 kg weight loss in 24 hours. 03/07: The patient continues to have effective diuresis. The patient's O2 requirements currently FiO2 is 70% to maintain a sat of 90-91%. Discussion with Ms. London yesterday, she would like to discuss with palliative team goals of care. Palliative care consult initiated. 03/08: The patient was less responsive to diuretics today, positive weight balance last 24 hours. The patient was placed on a Lasix infusion, noted occasional PVCs on telemetry. Patient potassium repletion ongoing, schedule potassium PO intake increased to 50 mEq twice a day. Free water flushes placed on hold, was sodium level 145 will continue to monitor. Chest x-ray shows slight improvement. Continued management of ventilator settings ARDS protocol, maintaining PaO2 60 or greater and adjusting vent settings based on PaO2. Sedation vacation attempted today by [employer], GCS 11T. Noted WBC elevation today ID consulted. 03/09: Today the patient was noted to have increasing FiO2 requirements with a PaO2 of 61. FiO2 was increased to 100%, PEEP was gradually increased to 12, then 14. The patient subsequently became hypotensive, likely due to increasing PEEP, but chest x-ray also obtained to rule out pneumothorax which was clear. The patient subsequently was laced on phenylephrine low-dose 20 mcgs which was eventually weaned off. The patient was placed on PEEP at 7 and FiO2 of 100%, sedation was weaned to lower dose. Palliative care also discussed with goals of care and the patient was made DNR. 03/10 noted creatinine elevation last night, Lasix discontinued. Dobutamine initiated per cardiology this morning. The patient continues to have high requirements on a PEEP of 8 and FiO2 of 100% his PaO2 49.2. PEEP has been increased plan to initiate Flolan. 03/11: Tmax 100.5. FRANK resolved with dobutamine infusion, heart rate 110. Microbiology report bacteremia gram-positive cocci and sputum. Patient currently on Diflucan. Will begin Linezolid in the setting of recent FRANK and oliguria, and await further recommendations from infectious disease senior staff consultant. Respiratory status deteriorating. The patient was placed on Flolan last night PaO2 67. Patient remains on a PEEP of 10, unable to advance secondary to hypotension. 03/12 Patient remains sedated with Diprivan, Fentanyl and intubated. On Dobutamine 2.5 mics and Flolan. Remains On PC/AC with RR 12, IP:22, IT:1.20, PEEP;10 and FIo2 90%. Afebrile. 03/13 Patient is sedated with Diprivan and Fentanyl and intubated. On PC/AC with PEEP:12, FIO2 80%. Tmax 101.7 Remains on Dobutamine and Flolan. 03/14 Patient remains sedated and intubated. On PC/AC with PEEP:12 and FIO2 100% . T: 101.5 last night. On Flolan off Dobutamine. 03/15 No acute events overnight. Sedated with Diprivan and Fentanyl. On PC/AC with PEEP: 12, FIO2 down to 70%. Tmax 101.6. On Flolan nebs. 03/16 Patient remains sedated and intubated On PC/AC with decrease in FIO2 requirements down to 65% FIO2 with PEEP: 12. Tmax 101.4. On Heparin drip. 03/17 Patient remains sedated and intubated. T: 99.7, heparin drip turned off as patient had bloody secretions with suctioning and Hemoccult was positive. 03/18 No acute events overnight. Remains sedated and intubated. Tmax 102.8. Off heparin drip patient has minimal bloody secretions. 03/19 Patient remains sedated with Diprivan and Fentanyl intubated. Afebrile. 03/20 No acute events overnight. Sedated and intubated. Tmax : 100.8. NPO for EGD and PEG tube placement today. 03/21 remains sedated, orally intubated on mechanical ventilation. Flolan inhaled stopped today. Switched to PRVC mode mechanical ventilation from PC/AC. 03/22:Remains sedated, orally intubated on mechanical ventilation. Deep decreased to +10, FiO2 55%. 03/23: Arouses on lightening sedation, moving all 4 extremities. Orally intubated on mechanical ventilation. On PEEP of +10, FiO2 50% 03/24: Sedated, arousable, orally intubated on mechanical ventilation. PEEP +10 , FiO2 60% today. 03/25: Remains sedated, orally intubated on mechanical ventilation. PEEP of +10 , FiO2 50%. Minimal blood-tinged respiratory secretions noted. Heparin drip stopped this morning Objective Vital Signs Date Time Temp Pulse Resp B/P Pulse Ox O2 Delivery O2 Flow Rate FiO2 03/25/17 10:03 96 55 03/25/17 08:00 85 03/25/17 04:00 98.3 23 141/73 Intake and Output 03/24/17 03/24/17 03/25/17 08:00 16:00 00:00 Intake Total 434 ml 1096 ml 932 ml Output Total 300 ml 1300 ml 450 ml Balance 134 ml -204 ml 482 ml Result Diagram: 03/24/17 0540 03/22/17 0331 Imaging Last Impressions Chest X-Ray 03/18/17 0000 Signed Impressions: Service Date/Time: Saturday, March 18, 2017 08:43 - CONCLUSION: Left lower lobe consolidation/atelectasis and likely some effusion. Nick Menchaca MD Upper Extremity Ultrasound 03/14/17 0000 Signed Impressions: Service Date/Time: Tuesday, March 14, 2017 18:49 - CONCLUSION: 1. Thrombus throughout the cephalic veins bilaterally. These are superficial venous structures. 2. Questionable minimal thrombus within the left subclavian vein. Garrick Hinton Jr., MD CT Angiography 03/02/17 1206 Signed Impressions: Service Date/Time: Thursday, March 02, 2017 13:46 - CONCLUSION: 1. No pulmonary embolus identified. 2. Small bilateral effusions with significant dependent atelectasis bilaterally. Riley Bob MD Lower Extremity Ultrasound 02/27/17 0000 Signed Impressions: Service Date/Time: Monday, February 27, 2017 08:31 - CONCLUSION: Normal examination. Nick Farrell MD Abdomen X-Ray 02/24/17 0000 Signed Impressions: Service Date/Time: Friday, February 24, 2017 10:43 - CONCLUSION: 1. Nasogastric tube just across the GE junction. 2. Minimal nonspecific bowel gas dilatation. Atrur Bob MD FACR Objective Remarks GENERAL: Patient is 66 yo obese male intubated and sedated SKIN: Warm and dry. HEAD: Normocephalic. EYES: No scleral icterus. No injection or drainage. NECK: Supple, trachea midline. No JVD or lymphadenopathy. CARDIOVASCULAR:Tachycardic without murmurs, gallops, or rubs. RESPIRATORY: On mechanical ventilation, orally intubated, Breath sounds equal bilaterally. Few Coarse BS GASTROINTESTINAL: Abdomen soft, non-tender, nondistended. OGT, tube feedings infusing MUSCULOSKELETAL: 2+ bilateral edema in upper extremities. Neuro: Sedated, arousable, orally intubated, moves all 4 extremities on lightening sedation. Date of Removal: Mar 04, 2017 Line: Central Venous Catheter Side: Right A/P Assessment and Plan 1. Acute hypercapnic and hypoxemic respiratory failure. 2. COPD exacerbation. 3. Acute renal failure. 4. Hypernatremia 5. Obstructive sleep apnea and morbid obesity. 6. Ischemic dilated Cardiomyopathy. S/P AICD 03/2015 7. History of coronary artery disease. 8. Gastroesophageal reflux disease. 9. Hypertension. 10. Hyperlipidemia. 11 Pulm edema 12. Acute on chronic systolic and diastolic CHF 13. Pulmonary hypertension 14. Bacteremia Plan: Neuro: On Diprivan and Fentanyl infusion for sedation. Daily sedation vacation when appropriate. Monitor neuro status CV: Monitor HR and BP keep MAP>65mmHg. On Lopressor 12.5mg BID for rate control. On aspirin 325 milligrams p.o. daily and Plavix 75 mg p.o. daily - holding starting 03/22 in anticipation of tracheostomy. Prinivil 5mg daily 01/2017 Echo showed EF 40-45%, nl LV diastolic function, No RWMA Cardiology following-Dr. Cole. Pulm: PRVC mode mechanical ventilation: rate 12 tidal volume 600 I time 1.1 second PEEP 10 FiO2 50% Continue with vent support and maintain sats above 92%. Bronchodilators every 4 hours, Solu-Medrol 40 mg IV BID. Pulm-Dr. Lashell Padron CXR: LLL consolidation/Atelectasis CTA chest 03/02 showed no PE, small pleural effusions Flolan inhaled nebulizer treatment stopped 03/21. Heparin GTT held on 03/25 in view of blood-tinged respiratory secretions : Monitor renal function Is and Os and avoid nephrotoxins. Electrolytes replacement per protocol. Lasix 40mg daily Decrease Free water to 200 ml Q8 on 03/22, monitor sodium level. GI: On Protonix 40 mg IV daily for GI prophylaxis. TF(Glucerna 1.5 @45ml/hr. S/p PEG tube placement 03/20 Senna, Colace for bowel regimen, 02/24 KUB abdomen: Minimal non-specific bowel gas dilatation GI is following for anemia and positive Hemoccult. ID:Continue with abx per ID(Vancomycin, Levaquin) monitor for signs of infections ( Fever, WBC) 03/16 C-dif PCR negative 03/14: BC: NGTD 03/14: Normal resp tiffany, urine cx: No growth 03/09 Repeat Bld cultures-staph Epi, coag negative staph- likely contaminant 03/09 Repeat sputum culture-staph aureus Heme: Monitor CBC. Heparin GTT held on 03/25 Endo: SSI with Accu-Chek q. 6-hour for glycemic control. GI prophylaxis with Protonix 40 mg BID and DVT prophylaxis with SCDs, Doppler US UE: 03/14-Thrombus throughout the cephalic veins bilaterally. ? minimal thrombus within the left subclavian vein. Was off Heparin drip as patient had bloody secretions with suctioning ( resolved ) and positive Hemoccult. Heparin resumed (cleared by GI) and subsequently stopped on 03/25 due to blood tinged respiratory secretions. Doppler US LE No DVT on 02/27 Dispo: Discussed patient with [employer]. Palliative care is following. Unable to wean off mechanical ventilation currently. He is scheduled for tracheostomy 03/26, consulted Dr. Kirkland and held ASA/plavix in anticipation. CCT 30 mins Ari Mackey MD Mar 25, 2017 14:58
[2017-03-25] MEDS: fentaNYL DRIP 250 ML IV SCH (15:12)
[2017-03-25] MEDS: ATORVASTATIN 40 MG TAB PO SCH (21:17)
[2017-03-26] VITALS (16 sets, daily range): BP systolic 97–164; BP diastolic 53–75; PULSE 74–116; RESP 12–28; TEMP 98.2–99; O2SAT 88–98
[2017-03-26] MEDS: PROPOFOL 1000 MG/100 ML INJ 100 ML IV SCH ×4 (03:45→17:42)
[2017-03-26] MEDS: CHLORHEXIDINE GLUCONATE 2 % 1 PACK (2 CLOTHS) TOP SCH (04:00)
[2017-03-26] MEDS: INSULIN NovoLIN REGULAR SUPPLEMENTAL SCALE SQ SCH ×4 (05:00→23:00)
[2017-03-26] MEDS: FREE WATER G-TUBE SCH ×3 (05:26→21:16)
[2017-03-26] MEDS: CHLORHEXIDINE 0.12% (ORAL KIT) 15 ML CUP MT SCH ×2 (08:00→21:15)
[2017-03-26] MEDS: METOPROLOL TARTRATE 25 MG TAB PO SCH ×2 (08:18→21:00)
[2017-03-26] MEDS: LISINOPRIL 5 MG TAB PO SCH (08:19)
[2017-03-26] MEDS: FUROSEMIDE 40 MG/4 ML VIAL IV PUSH SCH (08:19)
[2017-03-26] MEDS: SENNOSIDES SYRUP 8.8 MG/5 ML CUP PO SCH (08:19)
[2017-03-26] MEDS: DOCUSATE SODIUM 100 MG/10 ML UDC PO SCH ×2 (08:19→21:15)
[2017-03-26] MEDS: PANTOPRAZOLE SODIUM 40 MG VIAL IV SCH (08:19)
[2017-03-26] MEDS: methylPREDNISolone SOD SUCC 40 MG/1 ML VIAL IV PUSH SCH ×2 (08:19→21:15)
--- NOTE | 2017-03-26 12:21 | HHI.PR ---
Subjective Remarks Awake and on the vent at 50 % FIO2, and PEEP 10 cm.For Trach today. No change overall. Objective Vital Signs Date Time Temp Pulse Resp B/P Pulse Ox O2 Delivery O2 Flow Rate FiO2 03/26/17 12:00 85 03/26/17 12:00 55 03/26/17 10:00 89 03/26/17 08:40 97 50 03/26/17 08:00 55 03/26/17 08:00 110 03/26/17 06:00 96 03/26/17 04:27 95 50 03/26/17 04:00 114 03/26/17 04:00 98.8 114 28 164/69 95 03/26/17 04:00 50 03/26/17 02:00 103 03/26/17 01:07 92 50 03/26/17 00:00 50 03/26/17 00:00 116 03/26/17 00:00 99.0 116 22 162/75 98 03/25/17 22:00 91 03/25/17 20:09 92 55 03/25/17 20:00 99.2 116 15 139/73 100 03/25/17 20:00 116 03/25/17 20:00 50 03/25/17 18:00 78 03/25/17 16:00 55 03/25/17 16:00 78 03/25/17 16:00 98.3 111 19 96/55 98 03/25/17 15:04 96 50 03/25/17 14:00 82 I/O 03/25/17 03/25/17 03/25/17 03/26/17 03/26/17 03/26/17 07:00 15:00 23:00 07:00 15:00 23:00 Intake Total 716 ml 750 ml 484 ml 601 ml Output Total 350 ml 900 ml 225 ml 300 ml Balance 366 ml -150 ml 259 ml 301 ml Intake Oral 0 ml IV Total 276 ml 333 ml 132 ml 311 ml Tube Feeding 240 ml 417 ml 152 ml 90 ml Other 200 ml 200 ml 200 ml Output Urine Total 350 ml 900 ml 225 ml 300 ml # Bowel Movements 0 0 Result Diagram: 03/24/17 0540 03/22/17 0331 Objective Remarks PHYSICAL EXAMINATION GENERAL: This moderately obese elderly man is responsive, assisting the ventilator. HEENT: Head normocephalic. Pupils are reactive. Throat has some secretions. NECK: No bruits or thyroid enlargement. CHEST: Equal movements with diminished breath sounds at the bases with wheezes and occ basilar crackles. HEART: The heart sounds are regular, S1 and S2. No murmur. ABDOMEN: Soft, obese, without masses. No organomegaly. Bowel sounds are faint. EXTREMITIES: No Edema with decreased pulses . NEUROLOGIC: Awake .Reflexes 1 +. Muscle wasting. SKIN: Warm and dry. Assessment and Plan Assessment and Plan IMPRESSION 1. Hypercapnic respiratory failure and hypoxemic respiratory failure. 2. COPD with chronic bronchitis and acute exacerbation. 3. Congestive heart failure. 4. Cardiomyopathy with ischemic heart disease. 5. Hypertension and hyperlipidemia. 6. Possible obstructive sleep apnea. 7. pulmonary HTN. Plan : 1. Wean O2 to keep sat >92. 2. Trach today 3. Chest X ray in am 4. Tube feeds at 50 CC. 5. Cont daily Lasix 40 mg. 6. Continue antibiotics. 7. Solumedrol 20 mg bid. Bri Stout MD March 26, 2017 12:21
--- NOTE | 2017-03-26 12:28 | HHI.IDPN ---
Subjective Subjective Remarks Notes reviewed D/W RN Temps ok FiO2 at 50%, PEEP 10 Trach plans for today BP ok Minimal sedation Following commands Tolerating TF per PEG Off Abx Antibiotics None Lines PIV Past Medical History Reviewed Allergies: Coded Allergies: No Known Allergies (Verified , 02/23/17) Objective . Vital Signs Date Time Temp Pulse Resp B/P Pulse Ox O2 Delivery O2 Flow Rate FiO2 03/26/17 12:00 85 03/26/17 12:00 55 03/26/17 10:00 89 03/26/17 08:40 97 50 03/26/17 08:00 55 03/26/17 08:00 110 03/26/17 06:00 96 03/26/17 04:27 95 50 03/26/17 04:00 114 03/26/17 04:00 98.8 114 28 164/69 95 03/26/17 04:00 50 03/26/17 02:00 103 03/26/17 01:07 92 50 03/26/17 00:00 50 03/26/17 00:00 116 03/26/17 00:00 99.0 116 22 162/75 98 03/25/17 22:00 91 03/25/17 20:09 92 55 03/25/17 20:00 99.2 116 15 139/73 100 03/25/17 20:00 116 03/25/17 20:00 50 03/25/17 18:00 78 03/25/17 16:00 55 03/25/17 16:00 78 03/25/17 16:00 98.3 111 19 96/55 98 03/25/17 15:04 96 50 03/25/17 14:00 82 03/25/17 03/25/17 03/26/17 15:00 23:00 07:00 Intake Total 750 ml 484 ml 601 ml Output Total 900 ml 225 ml 300 ml Balance -150 ml 259 ml 301 ml IV Total 333 ml 132 ml 311 ml Tube Feeding 417 ml 152 ml 90 ml Other 200 ml 200 ml Output Urine Total 900 ml 225 ml 300 ml # Bowel Movements 0 Imaging Chest X-Ray 03/21/17 0000 Signed Impressions: Service Date/Time: Tuesday, March 21, 2017 02:18 - CONCLUSION: Left lower lung infiltrate. Otherwise, no significant change. Remington Meng MD Chest X-Ray 03/18/17 0000 Signed Impressions: Service Date/Time: Saturday, March 18, 2017 08:43 - CONCLUSION: Left lower lobe consolidation/atelectasis and likely some effusion. Nick Menchaca MD Chest X-Ray 03/11/17 0600 Signed Impressions: Service Date/Time: Saturday, March 11, 2017 04:03 - CONCLUSION: 1. Bilateral lower lobe atelectasis versus pneumonia. There has been no significant change when compared to the prior exam. Lavell Maciel MD CT Angiography 03/02/17 1206 Signed Impressions: Service Date/Time: Thursday, March 02, 2017 13:46 - CONCLUSION: 1. No pulmonary embolus identified. 2. Small bilateral effusions with significant dependent atelectasis bilaterally. Riley Bob MD Lower Extremity Ultrasound 02/27/17 0000 Signed Impressions: Service Date/Time: Monday, February 27, 2017 08:31 - CONCLUSION: Normal examination. Nick Farrell MD Abdomen X-Ray 02/24/17 0000 Signed Impressions: Service Date/Time: Friday, February 24, 2017 10:43 - CONCLUSION: 1. Nasogastric tube just across the GE junction. 2. Minimal nonspecific bowel gas dilatation. Artur Bob MD FACR Physical Exam GENERAL: awakens easily, on the vent, not in respiratory distress. Following simple commands SKIN: Warm and moist. No generalized rash. HEENT: [place] conjunctivae. No scleral icterus. Endotracheal tube is in the mouth. NECK: Supple, nontende CARDIOVASCULAR: Regular rate and rhythm without murmurs, gallops, or rubs. RESPIRATORY: Coarse BS kade, few rhonchi GASTROINTESTINAL: Abdomen soft, obese, not tender, nondistended. Bowel sounds are present. MUSCULOSKELETAL: Lower extremities without clubbing, cyanosis or pedal edema. BUE are edematous. NEUROLOGICAL: Awake, focusing, following simple commands, moving extremities PSYCH: tracking, calm, no anxioius LINE: PIV with no evidence of infection : [facility] catheter in place, with small amount of sediment Assessment & Plan Remarks IMPRESSION Leukocytosis, etiology? - persistent, stable Fevers, better - ?partly due to vein clots; cephalic are superficial veins - ?drug fevers - intermittent Respiratory failure - has known ischemic cardiomyopathy BC with Coag Neg STaph - ?significance Known COPD Obesity RECOMMENDATION Patient is off Abx Follow temps Monitor progress Seems clinically stable from ID standpoint off Abx Monitor for recurrent S/Sxs of infection Plans for trach today D/W Heather Hamilton MD March 26, 2017 12:28
[2017-03-26] MEDS: fentaNYL DRIP 250 ML IV SCH (12:45)
--- NOTE | 2017-03-26 15:31 | HHI.CCPN ---
Subjective Remarks/Hospital Course The patient is a 66-year-old male with past medical history of COPD, cardiomyopathy, hypertension, gastroesophageal reflux disease, hyperlipidemia and coronary artery disease. The patient presented to [facility] ED with a 2-week history of progressive worsening shortness of breath. On arrival to the ED he was initially placed on a non-rebreather mask and ABG was performed which showed acute hypercapnic respiratory failure with a pH of 7.14, CO2 121, pAO2 141, bicarb 40, sats 93%. His laboratory data significant for hyperkalemia with potassium level 6.0 and acute renal failure with a BUN of 43 and creatinine 2.07 respectively. The chest x-ray showed cardiomegaly and findings of vascular congestion without overt failure. In the ED the patient was intubated with etomidate and rocuronium and placed on full mechanical ventilation. In addition, he is scheduled to receive 10 units IV regular insulin, 1 amp of D50 and calcium gluconate for hyperkalemia. He received cefepime, azithromycin, Solu-Medrol 125 milligrams IV push and bronchodilator treatment. When seen the patient is on Diprivan infusion for sedation and full mechanical ventilation. Per the patient is not on any oxygen at home and he occasionally smokes cigarettes. 02/24 Patient is intubated and sedated with Diprivan and Fentanyl. Switched to PC/ AC with RR 12, IP:24, IT:1.06, PEEP: 8 and FIO2 100%. CXR this morning showed interval development of bilateral perihilar and lower lung zone airspace opacity he was given Lasix 60mg total overnight. 02/25 Patient remains sedated and intubated with Diprivan and Fentanyl. Afebrile.On PC/AC with RR 12, IP:22, IT:1.10, PEEP:10, FIO2 70%. Afebrile. Renal function worse today with Cr: 1.90 from 1.72 UO: 1150ml in 24 hrs 02/26 No acute events overnight. Sedated with Fentanyl and Diprivan and intubated. Afebrile. His O2 requirements is less now on PC/AC with IP:22, IT: 1.1 with PEEP: 10 and FIO2 55%. Renal function improving with Cr: 1.42 today from 1.90. Tolerating tube feeds. 02/27 Patient remains sedated with Diprivan and Fentanyl infusion and intubated. Afebrile. 02/28: Remains sedated, orally intubated on mechanical ventilation. Being diuresed with Bumex. Tolerating tube feeds. 03/01: Remains sedated, orally intubated on mechanical ventilation. Being diabetes. Remains on PEEP of 10 and FiO2 60% 03/02 Patient remains sedated with Diprivan and Fentanyl and intubated. On PC/AC with PEEP: 10 and FIO2 80% overnight and sats 93-94%. Afebrile. 03/03: The patient remains on high respiratory requirements PEEP of 10, and FiO2 70%. 03/04: Tmax 99.9. Overnight the patient was noted to have desaturations the patient received a bolus of midazolam and fentanyl for ventilator dyssynchrony. The patient was redosed with Diamox with approximately 2.5 L diuresis in the last 12 hours. The patient continues on an FiO2 of 70% with PEEP of 10 to maintain an O2 sat of 90%. 03/05: Afebrile. Patient's FiO2 remains at 60% to maintain O2sat ranging in 92% . Future plans for tracheostomy discussed with when ventilator requirements are decreased. Patient currently is on a PEEP of 10. Patient receiving multiple doses of diuretics chest x-ray still showing increased vascular congestion. Cardiology following metalazone added to medication regimen per cardiology for diuresis. 03/06: Patient's O2 requirements were increased overnight to FiO2 of 90%. The patient's FiO2 has been decreased now currently to 70% O2 sat is 90% ABG is pending. The patient's diuresis effective, 1 kg weight loss in 24 hours. 03/07: The patient continues to have effective diuresis. The patient's O2 requirements currently FiO2 is 70% to maintain a sat of 90-91%. Discussion with Ms. London yesterday, she would like to discuss with palliative team goals of care. Palliative care consult initiated. 03/08: The patient was less responsive to diuretics today, positive weight balance last 24 hours. The patient was placed on a Lasix infusion, noted occasional PVCs on telemetry. Patient potassium repletion ongoing, schedule potassium PO intake increased to 50 mEq twice a day. Free water flushes placed on hold, was sodium level 145 will continue to monitor. Chest x-ray shows slight improvement. Continued management of ventilator settings ARDS protocol, maintaining PaO2 60 or greater and adjusting vent settings based on PaO2. Sedation vacation attempted today by SUBSTITUTE NURSE, GCS 11T. Noted WBC elevation today ID consulted. 03/09: Today the patient was noted to have increasing FiO2 requirements with a PaO2 of 61. FiO2 was increased to 100%, PEEP was gradually increased to 12, then 14. The patient subsequently became hypotensive, likely due to increasing PEEP, but chest x-ray also obtained to rule out pneumothorax which was clear. The patient subsequently was laced on phenylephrine low-dose 20 mcgs which was eventually weaned off. The patient was placed on PEEP at 7 and FiO2 of 100%, sedation was weaned to lower dose. Palliative care also discussed with goals of care and the patient was made DNR. 03/10 noted creatinine elevation last night, Lasix discontinued. Dobutamine initiated per cardiology this morning. The patient continues to have high requirements on a PEEP of 8 and FiO2 of 100% his PaO2 49.2. PEEP has been increased plan to initiate Flolan. 03/11: Tmax 100.5. FRANK resolved with dobutamine infusion, heart rate 110. Microbiology report bacteremia gram-positive cocci and sputum. Patient currently on Diflucan. Will begin Linezolid in the setting of recent FRANK and oliguria, and await further recommendations from infectious disease law firm consultant. Respiratory status deteriorating. The patient was placed on Flolan last night PaO2 67. Patient remains on a PEEP of 10, unable to advance secondary to hypotension. 03/12 Patient remains sedated with Diprivan, Fentanyl and intubated. On Dobutamine 2.5 mics and Flolan. Remains On PC/AC with RR 12, IP:22, IT:1.20, PEEP;10 and FIo2 90%. Afebrile. 03/13 Patient is sedated with Diprivan and Fentanyl and intubated. On PC/AC with PEEP:12, FIO2 80%. Tmax 101.7 Remains on Dobutamine and Flolan. 03/14 Patient remains sedated and intubated. On PC/AC with PEEP:12 and FIO2 100% . T: 101.5 last night. On Flolan off Dobutamine. 03/15 No acute events overnight. Sedated with Diprivan and Fentanyl. On PC/AC with PEEP: 12, FIO2 down to 70%. Tmax 101.6. On Flolan nebs. 03/16 Patient remains sedated and intubated On PC/AC with decrease in FIO2 requirements down to 65% FIO2 with PEEP: 12. Tmax 101.4. On Heparin drip. 03/17 Patient remains sedated and intubated. T: 99.7, heparin drip turned off as patient had bloody secretions with suctioning and Hemoccult was positive. 03/18 No acute events overnight. Remains sedated and intubated. Tmax 102.8. Off heparin drip patient has minimal bloody secretions. 03/19 Patient remains sedated with Diprivan and Fentanyl intubated. Afebrile. 03/20 No acute events overnight. Sedated and intubated. Tmax : 100.8. NPO for EGD and PEG tube placement today. 03/21 remains sedated, orally intubated on mechanical ventilation. Flolan inhaled stopped today. Switched to PRVC mode mechanical ventilation from PC/AC. 03/22:Remains sedated, orally intubated on mechanical ventilation. Deep decreased to +10, FiO2 55%. 03/23: Arouses on lightening sedation, moving all 4 extremities. Orally intubated on mechanical ventilation. On PEEP of +10, FiO2 50% 03/24: Sedated, arousable, orally intubated on mechanical ventilation. PEEP +10 , FiO2 60% today. 03/25: Remains sedated, orally intubated on mechanical ventilation. PEEP of +10 , FiO2 50%. Minimal blood-tinged respiratory secretions noted. Heparin drip stopped 03/25 03/26: Remains sedated, orally intubated on mechanical ventilation. PEEP remains at +10, FiO2 60%. Discussed with Dr. Bal, doubt patient can tolerate bronchoscopies hence he is planning to do tracheostomy in the OR. Objective Vital Signs Date Time Temp Pulse Resp B/P Pulse Ox O2 Delivery O2 Flow Rate FiO2 03/26/17 14:00 74 03/26/17 12:00 55 03/26/17 12:00 90 03/26/17 04:00 98.8 28 164/69 Intake and Output 03/25/17 03/25/17 03/26/17 08:00 16:00 00:00 Intake Total 716 ml 750 ml 484 ml Output Total 350 ml 900 ml 225 ml Balance 366 ml -150 ml 259 ml Result Diagram: 03/24/17 0540 03/22/17 0331 Imaging Last Impressions Chest X-Ray 03/18/17 0000 Signed Impressions: Service Date/Time: Saturday, March 18, 2017 08:43 - CONCLUSION: Left lower lobe consolidation/atelectasis and likely some effusion. Nick Menchaca MD Upper Extremity Ultrasound 03/14/17 0000 Signed Impressions: Service Date/Time: Tuesday, March 14, 2017 18:49 - CONCLUSION: 1. Thrombus throughout the cephalic veins bilaterally. These are superficial venous structures. 2. Questionable minimal thrombus within the left subclavian vein. Garrick Hinton Jr., MD CT Angiography 03/02/17 1206 Signed Impressions: Service Date/Time: Thursday, March 02, 2017 13:46 - CONCLUSION: 1. No pulmonary embolus identified. 2. Small bilateral effusions with significant dependent atelectasis bilaterally. Riley Bob MD Lower Extremity Ultrasound 02/27/17 0000 Signed Impressions: Service Date/Time: Monday, February 27, 2017 08:31 - CONCLUSION: Normal examination. Nick Farrell MD Abdomen X-Ray 02/24/17 0000 Signed Impressions: Service Date/Time: Friday, February 24, 2017 10:43 - CONCLUSION: 1. Nasogastric tube just across the GE junction. 2. Minimal nonspecific bowel gas dilatation. Artur Bob MD FACR Objective Remarks GENERAL: Patient is 66 yo obese male intubated and sedated SKIN: Warm and dry. HEAD: Normocephalic. EYES: No scleral icterus. No injection or drainage. NECK: Supple, trachea midline. No JVD or lymphadenopathy. CARDIOVASCULAR:Tachycardic without murmurs, gallops, or rubs. RESPIRATORY: On mechanical ventilation, orally intubated, Breath sounds equal bilaterally. Few Coarse BS GASTROINTESTINAL: Abdomen soft, non-tender, nondistended. OGT, tube feedings infusing MUSCULOSKELETAL: 2+ bilateral edema in upper extremities. Neuro: Sedated, arousable, orally intubated, moves all 4 extremities on lightening sedation. Date of Removal: Mar 04, 2017 Line: Central Venous Catheter Side: Right A/P Assessment and Plan 1. Acute hypercapnic and hypoxemic respiratory failure. 2. COPD exacerbation. 3. Acute renal failure. 4. Hypernatremia 5. Obstructive sleep apnea and morbid obesity. 6. Ischemic dilated Cardiomyopathy. S/P AICD 03/2015 7. History of coronary artery disease. 8. Gastroesophageal reflux disease. 9. Hypertension. 10. Hyperlipidemia. 11 Pulm edema 12. Acute on chronic systolic and diastolic CHF 13. Pulmonary hypertension 14. Bacteremia Plan: Neuro: On Diprivan and Fentanyl infusion for sedation. Daily sedation vacation when appropriate. Monitor neuro status CV: Monitor HR and BP keep MAP>65mmHg. On Lopressor 12.5mg BID for rate control. On aspirin 325 milligrams p.o. daily and Plavix 75 mg p.o. daily - holding starting 03/22 in anticipation of tracheostomy. Prinivil 5mg daily 01/2017 Echo showed EF 40-45%, nl LV diastolic function, No RWMA Cardiology following-Dr. Cole. Pulm: PRVC mode mechanical ventilation: rate 12 tidal volume 600 I time 1.1 second PEEP 10 FiO2 60% Continue with vent support. Tracheostomy to be done in OR by Dr. Kirkland Bronchodilators every 4 hours, Solu-Medrol 40 mg IV BID. Pulm-Dr. Lashell Padron CXR: LLL consolidation/Atelectasis CTA chest 03/02 showed no PE, small pleural effusions Flolan inhaled nebulizer treatment stopped 03/21. Heparin GTT held on 03/25 in view of blood-tinged respiratory secretions : Monitor renal function Is and Os and avoid nephrotoxins. Electrolytes replacement per protocol. Lasix 40mg daily Decrease Free water to 200 ml Q8 on 03/22, monitor sodium level. GI: On Protonix 40 mg IV daily for GI prophylaxis. TF(Glucerna 1.5 @45ml/hr. S/p PEG tube placement 03/20 Senna, Colace for bowel regimen, 02/24 KUB abdomen: Minimal non-specific bowel gas dilatation GI is following for anemia and positive Hemoccult. ID:Continue with abx per ID(Vancomycin, Levaquin) monitor for signs of infections ( Fever, WBC) 03/16 C-dif PCR negative 03/14: BC: NGTD 03/14: Normal resp tiffany, urine cx: No growth 03/09 Repeat Bld cultures-staph Epi, coag negative staph- likely contaminant 03/09 Repeat sputum culture-staph aureus Heme: Monitor CBC. Heparin GTT held on 03/25 Endo: SSI with Accu-Chek q. 6-hour for glycemic control. GI prophylaxis with Protonix 40 mg BID and DVT prophylaxis with SCDs, Doppler US UE: 03/14-Thrombus throughout the cephalic veins bilaterally. ? minimal thrombus within the left subclavian vein. Was off Heparin drip as patient had bloody secretions with suctioning ( resolved ) and positive Hemoccult. Heparin resumed (cleared by GI) and subsequently stopped on 03/25 due to blood tinged respiratory secretions. Doppler US LE No DVT on 02/27 Dispo: Discussed patient with SUBSTITUTE NURSE. Palliative care is following. Unable to wean off mechanical ventilation currently. He was scheduled for perc tracheostomy 03/26 however doubt that he will tolerate a bronchoscopy hence discussed with Dr. Kirkland and he will plan on doing tracheostomy in the OR. CCT 30 mins Ari Mackey MD March 26, 2017 15:31
--- NOTE | 2017-03-26 15:44 | PD.CAR.PN ---
CVT Progress Note Subjective/Hospital Course: Patient with respiratory failure COPD and coronary artery disease in need of a tracheostomy Patient is still on 12 of PEEP and 50% FiO2 In face of all this is will be sanchez to do the tracheostomy in the operating room so patient will be scheduled for the OR in the next day or 2 Thank you for the referral J Objective: Vital Signs Date Time Temp Pulse Resp B/P Pulse Ox O2 Delivery O2 Flow Rate FiO2 03/26/17 14:00 74 03/26/17 12:00 85 03/26/17 12:00 55 03/26/17 12:00 90 50 03/26/17 10:00 89 03/26/17 08:40 97 50 03/26/17 08:00 55 03/26/17 08:00 110 03/26/17 06:00 96 03/26/17 04:27 95 50 03/26/17 04:00 114 03/26/17 04:00 98.8 114 28 164/69 95 03/26/17 04:00 50 03/26/17 02:00 103 03/26/17 01:07 92 50 03/26/17 00:00 50 03/26/17 00:00 116 03/26/17 00:00 99.0 116 22 162/75 98 03/25/17 22:00 91 03/25/17 20:09 92 55 03/25/17 20:00 99.2 116 15 139/73 100 03/25/17 20:00 116 03/25/17 20:00 50 03/25/17 18:00 78 03/25/17 16:00 55 03/25/17 16:00 78 03/25/17 16:00 98.3 111 19 96/55 98 Result Diagram: 03/24/17 0540 03/22/17 0331 (1) Ischemic dilated cardiomyopathy Plan: Respiratory failure/COPD exacerbation and acute on chronic combined CHF Continue IV diuresis (lasix was held when cr increased but better now) Follow renal function; improved today w/ dobutamine Daily Weights Strict I&O on dobutamine to assist w/ diuresis but will be d/c'd if he develops significant dysrhythmia/RVR w/ his aflutter (2) CAD (coronary artery disease) (3) Hypertension (4) COPD (chronic obstructive pulmonary disease) (5) Atrial flutter Plan: not currently on anticoagulation due to procedures, may need to be evaluated if aggressive medical care continues;. (6) COPD with acute exacerbation (7) Acute respiratory failure Problem Qualifiers (1) Acute respiratory failure: Qualified Code: J96.02 - Acute respiratory failure with hypercapnia Jacek Matthew MD March 26, 2017 15:44
--- NOTE | 2017-03-26 16:04 | HHI.HCPN ---
Reason for visit a. To assist with evaluation and management of symptoms including:dyspnea, pain b. To assist medical decision maker(s) with: better understanding of current medical conditions; weighing benefits/burdens of medical treatment options; making medical treatment decisions. Subjective/Interval History Mr. Doran is seen with his at the bedside. He remains lightly sedated on a ventilator with a PEEP of 10 and FiO2 of 50%. Vent setting slowing improving. Schedule Trach placement was cancelled due to blood in OT tube over the weekend. On Heparin for A Fib. He remains in Afib - controlled rate. He is tolerating Glucerna tube feedings via PEG tube. His indicates that he clearly recognizes her and will wink at her. She remains hopeful for recovery. Hx of severe COPD and CAD with cardiomyopathy status post PPM/AICD with an EF of 20%. Advance Directives Living Will: Never completed Health Care Surrogate: Never completed Durable Power of Appraiser Land: Never completed Advance Directive Specifics Health Care Surrogate(s): Brooke Doran - [phone] (home), or [phone] (cellvoicemail not set up) Objective Vital Signs Date Time Temp Pulse Resp B/P Pulse Ox O2 Delivery O2 Flow Rate FiO2 03/26/17 14:00 74 03/26/17 12:00 85 03/26/17 12:00 55 03/26/17 12:00 90 50 03/26/17 10:00 89 03/26/17 08:40 97 50 03/26/17 08:00 55 03/26/17 08:00 110 03/26/17 06:00 96 03/26/17 04:27 95 50 03/26/17 04:00 114 03/26/17 04:00 98.8 114 28 164/69 95 03/26/17 04:00 50 03/26/17 02:00 103 03/26/17 01:07 92 50 03/26/17 00:00 50 03/26/17 00:00 116 03/26/17 00:00 99.0 116 22 162/75 98 03/25/17 22:00 91 03/25/17 20:09 92 55 03/25/17 20:00 99.2 116 15 139/73 100 03/25/17 20:00 116 03/25/17 20:00 50 03/25/17 18:00 78 03/25/17 16:00 55 03/25/17 16:00 78 03/25/17 16:00 98.3 111 19 96/55 98 Intake & Output 03/26/17 03/26/17 07:00 19:00 Intake Total 1085 ml Output Total 525 ml Balance 560 ml IV Total 443 ml Tube Feeding 242 ml Other 400 ml Output Urine Total 525 ml # Bowel Movements 0 Physical Exam CONSTITUTIONAL/GENERAL: This is an adequately nourished patient, mildly sedated but awake and tracking TUBES/LINES/DRAINS:central line, PEG tube, orotracheal tube, catheter, SKIN: No jaundice, rashes, or lesions. Ecchymoses on upper extremities. skin tear noted Skin temperature appropriate. Not diaphoretic. HEAD: Atraumatic. Normocephalic. EYES: Pupils equal and round and reactive. . No scleral icterus. No injection or drainage. ENT:Throat without visible erythema, exudates, masses, or lesions. NECK: Trachea midline. Supple, CARDIOVASCULAR: irregular rate and rhythm w/o murmurs, gallops, or rubs. No JVD. Peripheral pulses symmetric. RESPIRATORY/CHEST: Symmetric, unlabored respirations. Clear diminished breath sounds anteriorly, diminished posterior - vent dependent GASTROINTESTINAL: Abdomen soft, round, No hepato-splenomegaly, or palpable masses. Bowel sounds present. GENITOURINARY: Without palpable bladder distension. catheter in place. MUSCULOSKELETAL: Edema in upper extremities. Extremities without clubbing, cyanosis, No mottling or clubbing. LYMPHATICS: No palpable cervical or supraclavicular adenopathy. NEUROLOGICAL: Eyes open, tracking, reportedly. Follows commands PSYCHIATRIC: unable to assess Diagnostic Tests Laboratory Laboratory Tests Test 03/24/17 03/24/17 03/25/17 05:40 11:38 07:00 White Blood Count 14.5 TH/MM3 (4.0-11.0) Red Blood Count 3.67 MIL/MM3 (4.50-5.90) Hemoglobin 10.7 GM/DL (13.0-17.0) Hematocrit 33.8 % (39.0-51.0) Mean Corpuscular Volume 91.9 FL (80.0-100.0) Mean Corpuscular Hemoglobin 29.1 PG (27.0-34.0) Mean Corpuscular Hemoglobin 31.7 % Concent (32.0-36.0) Red Cell Distribution Width 16.5 % (11.6-17.2) Platelet Count 138 TH/MM3 (150-450) Mean Platelet Volume 10.2 FL (7.0-11.0) Activated Partial 66.9 SEC 60.6 SEC Thromboplast Time (24.3-30.1) (24.3-30.1) Result Diagram: 03/24/17 0540 03/22/17 0339 Assessment and Plan Disease Oriented Problem List: (1) COPD with acute exacerbation Comment: slowly improving intubated with FiO2 of 55 and PEEP of 10 (2) Ischemic dilated cardiomyopathy (3) Hypertension (4) Atrial flutter Comment: Has PPM with AICD (5) COPD (chronic obstructive pulmonary disease) (6) Acute respiratory failure Symptom Scale: (1) Pain 0-10 Scale: Unable to quantify Comment: History of arthritis with shoulder ORIF (2) Dyspnea 0-10 Scale: Unable to quantify Comment: COPD exacerbation, now vent dependent Pertinent Non-Medical Issues Psychosocial: 36ys- had 6 step children; 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 He has been intubated since admission and remains on high ventilatory support needs with remaining hypercapnia. plan is for trach placement however, unsure if he will be able to be fully weaned and return to a meaningful existence Code Status: No Code Plan Decision Maker: Brooke Doran, , or [phone] Code Status: No code DNR at this time - no further goals of care at this time Family Discussion: remains hopeful for recovery. Agrees to tracheostomy. Symptoms: pain, dyspnea Palliative care phone number provided - will follow during hospital stay. Attestation To help prompt me to consider important information that might be impacting today's encounter and assessment, information from prior notes written by myself or my colleagues may have been "brought forward" into today's note. My signature on this note, however, is an attestation that I personally performed the exam, history, and/or decision-making noted today, and, unless otherwise indicated, the interactions with patient, family, and staff as well as the review of records all occurred today. I also attest that the listed assessment and stated plan reflect my best clinical judgment today based on the combination of historical information, prior notes, and today's exam/ interactions. When time spent is documented, it refers only to time spent today by the signer, or if indicated, combined time spent today by collaborating physician/nurse practitioner. Della Hoffman March 26, 2017 16:04
[2017-03-26] MEDS: RESP: ALBUTEROL 2.5 MG/IPRATROPIUM 0.5 MG NEB (PRN) NEB (19:02)
[2017-03-26] MEDS: ATORVASTATIN 40 MG TAB PO SCH (21:15)
[2017-03-27] VITALS (18 sets, daily range): BP systolic 106–145; BP diastolic 55–90; PULSE 70–123; RESP 12–14; TEMP 98.2–99.7; O2SAT 90–97
[2017-03-27] MEDS: PROPOFOL 1000 MG/100 ML INJ 100 ML IV SCH ×5 (03:40→22:46)
[2017-03-27] MEDS: CHLORHEXIDINE GLUCONATE 2 % 1 PACK (2 CLOTHS) TOP SCH (04:00)
[2017-03-27] MEDS: INSULIN NovoLIN REGULAR SUPPLEMENTAL SCALE SQ SCH ×4 (05:00→23:00)
[2017-03-27] MEDS: FREE WATER G-TUBE SCH ×3 (05:31→21:25)
--- NOTE | 2017-03-27 05:37 | RADRPT ---
EXAM DATE/TIME: 03/27/2017 03:50 [facility] COMPARISON: CHEST SINGLE AP, March 24, 2017, 10:05. INDICATIONS : Shortness of breath. MEDICAL HISTORY : Chronic obstructive pulmonary disease. Myocardial infarction. SURGICAL HISTORY : Pacemaker. CABG. ENCOUNTER: Subsequent ACUITY: 1 month PAIN SCORE: 0/10 LOCATION: Bilateral chest FINDINGS: The cardiac silhouette is normal in transverse diameter. Median sternotomy wires are present. A defib rillator device is in place via a left sided approach. There are findings of congestive heart failure with interstitial and alveolar opacity bilaterally. The findings are improved when compared with the prior exam. There is left lower lobe atelectasis versus pneumonia. CONCLUSION: 1. Cardiomegaly and findings of congestive heart failure. The findings are improved when compared wit h the prior exam. Lavell Maciel MD on March 27, 2017 at 5:35 Board Certified Radiologist. This report was verified electronically.
[2017-03-27 06:55] LABS: AUTOMATED NEUTROPHIL # 11.9 TH/MM3 (1.8-7.7); BASOPHIL % 0.3 % (0.0-2.0); EOSINOPHIL % 0.1 % (0.0-4.0); HEMATOCRIT 30.5 % (39.0-51.0); LYMPH % 4.2 % (9.0-44.0); LYMPHOCYTE # 0.5 TH/MM3 (1.0-4.8); MEAN CELL VOLUME 90.7 FL (80.0-100.0); MEAN CORPUSCULAR HEMOGLOBIN 29.8 PG (27.0-34.0); MEAN CORPUSCULAR HGB CONC 32.9 % (32.0-36.0); MONO % 3.8 % (0.0-8.0); NEUT % 91.6 % (16.0-70.0); PLATELET COUNT 108 TH/MM3 (150-450); RED BLOOD COUNT 3.36 MIL/MM3 (4.50-5.90); RED CELL DISTRIBUTION WIDTH 16.8 % (11.6-17.2)
[2017-03-27 07:18] LABS: HEMO FLAGS AUTO DIFF
[2017-03-27 07:20] LABS: ALT (GPT) 109 U/L (12-78); ANION GAP 6 MEQ/L (5-15); AST (GOT) 58 U/L (15-37); BLOOD UREA NITROGEN 26 MG/DL (7-18); CHLORIDE 97 MEQ/L (98-107); GLOMERULAR FILTRATION RATE 227 ML/MIN (>89); POTASSIUM 3.9 MEQ/L (3.5-5.1); SODIUM (NA) 141 MEQ/L (136-145)
[2017-03-27 07:22] LABS: ALKALINE PHOSPHATASE 67 U/L (45-117); TOTAL BILIRUBIN ADULT 1.1 MG/DL (0.2-1.0)
[2017-03-27 08:11] LABS: BANDS 7 % (0-6); MYELOCYTES 3 % (0-0); PLATELET ESTIMATE SMEAR LOW (NORMAL); POLYS (SEG NEUTROPHILS) 82 % (16-70); WBC DIFF SAMPLE 100
[2017-03-27 08:12] LABS: PLATELET MORPHOLOGY NORMAL (NORMAL); SCAN/DIFF FINAL DIFF MANUAL
[2017-03-27] MEDS: fentaNYL DRIP 250 ML IV SCH ×2 (08:41→22:46)
[2017-03-27] MEDS: METOPROLOL TARTRATE 25 MG TAB PO SCH ×2 (08:41→20:43)
[2017-03-27] MEDS: LISINOPRIL 5 MG TAB PO SCH (08:41)
[2017-03-27] MEDS: FUROSEMIDE 40 MG/4 ML VIAL IV PUSH SCH (08:42)
[2017-03-27] MEDS: SENNOSIDES SYRUP 8.8 MG/5 ML CUP PO SCH (08:42)
[2017-03-27] MEDS: methylPREDNISolone SOD SUCC 40 MG/1 ML VIAL IV PUSH SCH ×2 (08:42→20:43)
[2017-03-27] MEDS: PANTOPRAZOLE SODIUM 40 MG VIAL IV SCH (08:42)
[2017-03-27] MEDS: DOCUSATE SODIUM 100 MG/10 ML UDC PO SCH ×2 (08:42→20:43)
[2017-03-27] MEDS: CHLORHEXIDINE 0.12% (ORAL KIT) 15 ML CUP MT SCH ×2 (08:43→20:43)
--- NOTE | 2017-03-27 09:00 | HHI.IDPN ---
Subjective Subjective Remarks Notes reviewed D/W RN Temkedar ok Has not had his trach yet On the vent - PEEP 10, FiO2 up to 65% BP ok Minimal sedation Following commands Off Abx Antibiotics None Lines PIV Past Medical History Reviewed Allergies: Coded Allergies: No Known Allergies (Verified , 02/23/17) Objective . Vital Signs Date Time Temp Pulse Resp B/P Pulse Ox O2 Delivery O2 Flow Rate FiO2 03/27/17 07:33 94 65 03/27/17 06:00 94 03/27/17 04:05 93 65 03/27/17 04:00 71 03/27/17 04:00 98.7 71 12 114/55 93 03/27/17 04:00 65 03/27/17 02:00 76 03/27/17 00:19 91 65 03/27/17 00:00 90 03/27/17 00:00 98.5 90 12 122/59 90 03/27/17 00:00 65 03/26/17 22:00 96 03/26/17 20:14 91 65 03/26/17 20:00 97 03/26/17 20:00 65 03/26/17 20:00 98.3 97 12 99/57 88 03/26/17 18:00 82 03/26/17 16:00 98.2 75 17 97/56 93 03/26/17 16:00 50 03/26/17 16:00 77 03/26/17 14:00 74 03/26/17 12:00 85 03/26/17 12:00 55 03/26/17 12:00 90 50 03/26/17 12:00 98.7 96 18 108/66 91 03/26/17 10:00 89 03/26/17 03/26/17 03/27/17 14:59 22:59 06:59 Intake Total 441 ml 331 ml 469 ml Output Total 1600 ml 200 ml 250 ml Balance -1159 ml 131 ml 219 ml IV Total 441 ml 131 ml 269 ml Other 200 ml 200 ml Output Urine Total 1600 ml 200 ml 250 ml # Bowel Movements 1 0 0 . Laboratory Tests Test 03/27/17 06:10 White Blood Count 13.0 TH/MM3 Red Blood Count 3.36 MIL/MM3 Hemoglobin 10.0 GM/DL Hematocrit 30.5 % Mean Corpuscular Volume 90.7 FL Mean Corpuscular Hemoglobin 29.8 PG Mean Corpuscular Hemoglobin 32.9 % Concent Red Cell Distribution Width 16.8 % Platelet Count 108 TH/MM3 Mean Platelet Volume 9.6 FL Neutrophils (%) (Auto) 91.6 % Lymphocytes (%) (Auto) 4.2 % Monocytes (%) (Auto) 3.8 % Eosinophils (%) (Auto) 0.1 % Basophils (%) (Auto) 0.3 % Neutrophils # (Auto) 11.9 TH/MM3 Lymphocytes # (Auto) 0.5 TH/MM3 Monocytes # (Auto) 0.5 TH/MM3 Eosinophils # (Auto) 0.0 TH/MM3 Basophils # (Auto) 0.0 TH/MM3 CBC Comment AUTO DIFF Differential Total Cells 100 Counted Neutrophils % (Manual) 82 % Band Neutrophils % 7 % Lymphocytes % 4 % Monocytes % 4 % Neutrophils # (Manual) 12.0 TH/MM3 Myelocytes 3 % Differential Comment FINAL DIFF MANUAL Platelet Estimate LOW Platelet Morphology Comment NORMAL Laboratory Tests Test 03/27/17 06:10 Sodium Level 141 MEQ/L Potassium Level 3.9 MEQ/L Chloride Level 97 MEQ/L Carbon Dioxide Level 38.0 MEQ/L Anion Gap 6 MEQ/L Blood Urea Nitrogen 26 MG/DL Creatinine 0.38 MG/DL Estimat Glomerular Filtration 227 ML/MIN Rate Random Glucose 96 MG/DL Calcium Level 9.8 MG/DL Total Bilirubin 1.1 MG/DL Aspartate Amino Transf 58 U/L (AST/SGOT) Alanine Aminotransferase 109 U/L (ALT/SGPT) Alkaline Phosphatase 67 U/L Total Protein 5.5 GM/DL Albumin 2.1 GM/DL Imaging Chest X-Ray 03/27/17 0600 Signed Impressions: Service Date/Time: Monday, March 27, 2017 03:50 - CONCLUSION: 1. Cardiomegaly and findings of congestive heart failure. The findings are improved when compared with the prior exam. Lavell Maciel MD Chest X-Ray 03/21/17 0000 Signed Impressions: Service Date/Time: Tuesday, March 21, 2017 02:18 - CONCLUSION: Left lower lung infiltrate. Otherwise, no significant change. Remington Meng MD Chest X-Ray 03/18/17 0000 Signed Impressions: Service Date/Time: Saturday, March 18, 2017 08:43 - CONCLUSION: Left lower lobe consolidation/atelectasis and likely some effusion. Nick Menchaca MD Chest X-Ray 03/11/17 0600 Signed Impressions: Service Date/Time: Saturday, March 11, 2017 04:03 - CONCLUSION: 1. Bilateral lower lobe atelectasis versus pneumonia. There has been no significant change when compared to the prior exam. Lavell Maciel MD CT Angiography 03/02/17 1206 Signed Impressions: Service Date/Time: Thursday, March 02, 2017 13:46 - CONCLUSION: 1. No pulmonary embolus identified. 2. Small bilateral effusions with significant dependent atelectasis bilaterally. Riley Bob MD Lower Extremity Ultrasound 02/27/17 0000 Signed Impressions: Service Date/Time: Monday, February 27, 2017 08:31 - CONCLUSION: Normal examination. Nikc Farrell MD Abdomen X-Ray 02/24/17 0000 Signed Impressions: Service Date/Time: Friday, February 24, 2017 10:43 - CONCLUSION: 1. Nasogastric tube just across the GE junction. 2. Minimal nonspecific bowel gas dilatation. Artur Bob MD FACR Physical Exam GENERAL: awake, on the vent, restless. Following simple commands SKIN: Warm and moist. No generalized rash. HEENT: [place] conjunctivae. No scleral icterus. Endotracheal tube is in the mouth. NECK: Supple, nontender, no meningeal signs. CARDIOVASCULAR: Regular rate and rhythm without murmurs, gallops, or rubs. His monitor shows atrial flutter RESPIRATORY: Coarse BS kade, few rhonchi GASTROINTESTINAL: Abdomen soft, obese, nondistended. Bowel sounds are present. Not tender. MUSCULOSKELETAL: Lower extremities without clubbing, cyanosis or pedal edema. Hands edematous NEURO: Awake PSYCH: Restless LINE: PIV with no evidence of infection : Kaiser catheter in place, with small amount of sediment Assessment & Plan Remarks IMPRESSION Leukocytosis, etiology? - persistent, stable Fevers, better - ?partly due to vein clots; cephalic are superficial veins - ?drug fevers Respiratory failure - S/P PNA Rx - has known ischemic cardiomyopathy BC with Coag Neg STaph - ?significance; no new (+) BC Known COPD Obesity RECOMMENDATION Patient is off Abx He is clinically stable from ID standpoint, off Abx Monitor for recurrent S/Sxs of infection Trach per surgery I will sign off Please reconsult if with any new ID issue or question D/W Heather Hamilton MD March 27, 2017 09:00 Heather Young MD March 27, 2017 09:00
--- NOTE | 2017-03-27 12:34 | HHI.PR ---
Subjective Remarks Sedated and on the vent at 60 % FIO2, and PEEP 10 cm. For Trach today. Output was OK. Objective Vital Signs Date Time Temp Pulse Resp B/P Pulse Ox O2 Delivery O2 Flow Rate FiO2 03/27/17 11:08 97 60 03/27/17 10:00 74 03/27/17 08:00 77 03/27/17 08:00 65 03/27/17 07:33 94 65 03/27/17 06:00 94 03/27/17 04:05 93 65 03/27/17 04:00 71 03/27/17 04:00 98.7 71 12 114/55 93 03/27/17 04:00 65 03/27/17 02:00 76 03/27/17 00:19 91 65 03/27/17 00:00 90 03/27/17 00:00 98.5 90 12 122/59 90 03/27/17 00:00 65 03/26/17 22:00 96 03/26/17 20:14 91 65 03/26/17 20:00 97 03/26/17 20:00 65 03/26/17 20:00 98.3 97 12 99/57 88 03/26/17 18:00 82 03/26/17 16:00 98.2 75 17 97/56 93 03/26/17 16:00 50 03/26/17 16:00 77 03/26/17 14:00 74 I/O 03/26/17 03/26/17 03/26/17 03/27/17 03/27/17 03/27/17 07:00 15:00 23:00 07:00 15:00 23:00 Intake Total 601 ml 441 ml 331 ml 469 ml Output Total 300 ml 1600 ml 200 ml 250 ml Balance 301 ml -1159 ml 131 ml 219 ml IV Total 311 ml 441 ml 131 ml 269 ml Tube Feeding 90 ml Other 200 ml 200 ml 200 ml Output Urine Total 300 ml 1600 ml 200 ml 250 ml # Bowel Movements 0 1 0 0 Result Diagram: 03/27/17 0610 03/27/17 0610 Objective Remarks PHYSICAL EXAMINATION GENERAL: This moderately obese elderly man is sedated, assisting the ventilator. HEENT: Head normocephalic. Pupils are reactive. Throat has some secretions. NECK: No bruits or thyroid enlargement. CHEST: Equal movements with diminished breath sounds at the bases with wheezes and occ basilar crackles. HEART: The heart sounds are regular, S1 and S2. No murmur. ABDOMEN: Soft, obese, without masses. No organomegaly. Bowel sounds are faint. EXTREMITIES: No Edema with decreased pulses . NEUROLOGIC: Reflexes 1 +. Muscle wasting. SKIN: Warm and dry. Assessment and Plan Assessment and Plan IMPRESSION 1. Hypercapnic respiratory failure and hypoxemic respiratory failure. 2. COPD with chronic bronchitis and acute exacerbation. 3. Congestive heart failure. 4. Cardiomyopathy with ischemic heart disease. 5. Hypertension and hyperlipidemia. 6. Possible obstructive sleep apnea. 7. pulmonary HTN. Plan : 1. Wean O2 to keep sat >92. 2. Trach per Dr barajas 3. Labs in am. 4. Tube feeds at 50 CC. 5. Cont daily Lasix 40 mg. 6. Continue antibiotics. 7. D/C Solumedrol and add prednisone 20mg daily. Bri Stout MD March 27, 2017 12:34
--- NOTE | 2017-03-27 18:34 | HHI.CCPN ---
Subjective Remarks/Hospital Course The patient is a 66-year-old male with past medical history of COPD, cardiomyopathy, hypertension, gastroesophageal reflux disease, hyperlipidemia and coronary artery disease. The patient presented to [facility] ED with a 2-week history of progressive worsening shortness of breath. On arrival to the ED he was initially placed on a non-rebreather mask and ABG was performed which showed acute hypercapnic respiratory failure with a pH of 7.14, CO2 121, pAO2 141, bicarb 40, sats 93%. His laboratory data significant for hyperkalemia with potassium level 6.0 and acute renal failure with a BUN of 43 and creatinine 2.07 respectively. The chest x-ray showed cardiomegaly and findings of vascular congestion without overt failure. In the ED the patient was intubated with etomidate and rocuronium and placed on full mechanical ventilation. In addition, he is scheduled to receive 10 units IV regular insulin, 1 amp of D50 and calcium gluconate for hyperkalemia. He received cefepime, azithromycin, Solu-Medrol 125 milligrams IV push and bronchodilator treatment. When seen the patient is on Diprivan infusion for sedation and full mechanical ventilation. Per the patient is not on any oxygen at home and he occasionally smokes cigarettes. 02/24 Patient is intubated and sedated with Diprivan and Fentanyl. Switched to PC/ AC with RR 12, IP:24, IT:1.06, PEEP: 8 and FIO2 100%. CXR this morning showed interval development of bilateral perihilar and lower lung zone airspace opacity he was given Lasix 60mg total overnight. 02/25 Patient remains sedated and intubated with Diprivan and Fentanyl. Afebrile.On PC/AC with RR 12, IP:22, IT:1.10, PEEP:10, FIO2 70%. Afebrile. Renal function worse today with Cr: 1.90 from 1.72 UO: 1150ml in 24 hrs 02/26 No acute events overnight. Sedated with Fentanyl and Diprivan and intubated. Afebrile. His O2 requirements is less now on PC/AC with IP:22, IT: 1.1 with PEEP: 10 and FIO2 55%. Renal function improving with Cr: 1.42 today from 1.90. Tolerating tube feeds. 02/27 Patient remains sedated with Diprivan and Fentanyl infusion and intubated. Afebrile. 02/28: Remains sedated, orally intubated on mechanical ventilation. Being diuresed with Bumex. Tolerating tube feeds. 03/01: Remains sedated, orally intubated on mechanical ventilation. Being diabetes. Remains on PEEP of 10 and FiO2 60% 03/02 Patient remains sedated with Diprivan and Fentanyl and intubated. On PC/AC with PEEP: 10 and FIO2 80% overnight and sats 93-94%. Afebrile. 03/03: The patient remains on high respiratory requirements PEEP of 10, and FiO2 70%. 03/04: Tmax 99.9. Overnight the patient was noted to have desaturations the patient received a bolus of midazolam and fentanyl for ventilator dyssynchrony. The patient was redosed with Diamox with approximately 2.5 L diuresis in the last 12 hours. The patient continues on an FiO2 of 70% with PEEP of 10 to maintain an O2 sat of 90%. 03/05: Afebrile. Patient's FiO2 remains at 60% to maintain O2sat ranging in 92% . Future plans for tracheostomy discussed with when ventilator requirements are decreased. Patient currently is on a PEEP of 10. Patient receiving multiple doses of diuretics chest x-ray still showing increased vascular congestion. Cardiology following metalazone added to medication regimen per cardiology for diuresis. 03/06: Patient's O2 requirements were increased overnight to FiO2 of 90%. The patient's FiO2 has been decreased now currently to 70% O2 sat is 90% ABG is pending. The patient's diuresis effective, 1 kg weight loss in 24 hours. 03/07: The patient continues to have effective diuresis. The patient's O2 requirements currently FiO2 is 70% to maintain a sat of 90-91%. Discussion with Ms. London yesterday, she would like to discuss with palliative team goals of care. Palliative care consult initiated. 03/08: The patient was less responsive to diuretics today, positive weight balance last 24 hours. The patient was placed on a Lasix infusion, noted occasional PVCs on telemetry. Patient potassium repletion ongoing, schedule potassium PO intake increased to 50 mEq twice a day. Free water flushes placed on hold, was sodium level 145 will continue to monitor. Chest x-ray shows slight improvement. Continued management of ventilator settings ARDS protocol, maintaining PaO2 60 or greater and adjusting vent settings based on PaO2. Sedation vacation attempted today by [facility]OE [facility], GCS 11T. Noted WBC elevation today ID consulted. 03/09: Today the patient was noted to have increasing FiO2 requirements with a PaO2 of 61. FiO2 was increased to 100%, PEEP was gradually increased to 12, then 14. The patient subsequently became hypotensive, likely due to increasing PEEP, but chest x-ray also obtained to rule out pneumothorax which was clear. The patient subsequently was laced on phenylephrine low-dose 20 mcgs which was eventually weaned off. The patient was placed on PEEP at 7 and FiO2 of 100%, sedation was weaned to lower dose. Palliative care also discussed with goals of care and the patient was made DNR. 03/10 noted creatinine elevation last night, Lasix discontinued. Dobutamine initiated per cardiology this morning. The patient continues to have high requirements on a PEEP of 8 and FiO2 of 100% his PaO2 49.2. PEEP has been increased plan to initiate Flolan. 03/11: Tmax 100.5. FRANK resolved with dobutamine infusion, heart rate 110. Microbiology report bacteremia gram-positive cocci and sputum. Patient currently on Diflucan. Will begin Linezolid in the setting of recent FRANK and oliguria, and await further recommendations from infectious disease loss control consultant. Respiratory status deteriorating. The patient was placed on Flolan last night PaO2 67. Patient remains on a PEEP of 10, unable to advance secondary to hypotension. 03/12 Patient remains sedated with Diprivan, Fentanyl and intubated. On Dobutamine 2.5 mics and Flolan. Remains On PC/AC with RR 12, IP:22, IT:1.20, PEEP;10 and FIo2 90%. Afebrile. 03/13 Patient is sedated with Diprivan and Fentanyl and intubated. On PC/AC with PEEP:12, FIO2 80%. Tmax 101.7 Remains on Dobutamine and Flolan. 03/14 Patient remains sedated and intubated. On PC/AC with PEEP:12 and FIO2 100% . T: 101.5 last night. On Flolan off Dobutamine. 03/15 No acute events overnight. Sedated with Diprivan and Fentanyl. On PC/AC with PEEP: 12, FIO2 down to 70%. Tmax 101.6. On Flolan nebs. 03/16 Patient remains sedated and intubated On PC/AC with decrease in FIO2 requirements down to 65% FIO2 with PEEP: 12. Tmax 101.4. On Heparin drip. 03/17 Patient remains sedated and intubated. T: 99.7, heparin drip turned off as patient had bloody secretions with suctioning and Hemoccult was positive. 03/18 No acute events overnight. Remains sedated and intubated. Tmax 102.8. Off heparin drip patient has minimal bloody secretions. 03/19 Patient remains sedated with Diprivan and Fentanyl intubated. Afebrile. 03/20 No acute events overnight. Sedated and intubated. Tmax : 100.8. NPO for EGD and PEG tube placement today. 03/21 remains sedated, orally intubated on mechanical ventilation. Flolan inhaled stopped today. Switched to PRVC mode mechanical ventilation from PC/AC. 03/22:Remains sedated, orally intubated on mechanical ventilation. Deep decreased to +10, FiO2 55%. 03/23: Arouses on lightening sedation, moving all 4 extremities. Orally intubated on mechanical ventilation. On PEEP of +10, FiO2 50% 03/24: Sedated, arousable, orally intubated on mechanical ventilation. PEEP +10 , FiO2 60% today. 03/25: Remains sedated, orally intubated on mechanical ventilation. PEEP of +10 , FiO2 50%. Minimal blood-tinged respiratory secretions noted. Heparin drip stopped 03/25 03/26: Remains sedated, orally intubated on mechanical ventilation. PEEP remains at +10, FiO2 60%. Discussed with Dr. Bal, doubt patient can tolerate bronchoscopies hence he is planning to do tracheostomy in the OR. 03/27: Sedated, arousable, remains orally intubated on mechanical ventilation. Awaiting tracheostomy in the OR which is scheduled for tomorrow. Objective Vital Signs Date Time Temp Pulse Resp B/P Pulse Ox O2 Delivery O2 Flow Rate FiO2 03/27/17 16:00 71 03/27/17 16:00 98.3 14 106/58 95 03/27/17 16:00 65 Intake and Output 03/26/17 03/26/17 03/27/17 08:00 16:00 00:00 Intake Total 601 ml 441 ml 331 ml Output Total 300 ml 1600 ml 200 ml Balance 301 ml -1159 ml 131 ml Result Diagram: 03/27/17 0610 03/27/17 0610 Imaging Last Impressions Chest X-Ray 03/18/17 0000 Signed Impressions: Service Date/Time: Saturday, March 18, 2017 08:43 - CONCLUSION: Left lower lobe consolidation/atelectasis and likely some effusion. Nick Menchaca MD Upper Extremity Ultrasound 03/14/17 0000 Signed Impressions: Service Date/Time: Tuesday, March 14, 2017 18:49 - CONCLUSION: 1. Thrombus throughout the cephalic veins bilaterally. These are superficial venous structures. 2. Questionable minimal thrombus within the left subclavian vein. Garrick Hinton Jr., MD CT Angiography 03/02/17 1206 Signed Impressions: Service Date/Time: Thursday, March 02, 2017 13:46 - CONCLUSION: 1. No pulmonary embolus identified. 2. Small bilateral effusions with significant dependent atelectasis bilaterally. Riley Bob MD Lower Extremity Ultrasound 02/27/17 0000 Signed Impressions: Service Date/Time: Monday, February 27, 2017 08:31 - CONCLUSION: Normal examination. Nick Farrell MD Abdomen X-Ray 02/24/17 0000 Signed Impressions: Service Date/Time: Friday, February 24, 2017 10:43 - CONCLUSION: 1. Nasogastric tube just across the GE junction. 2. Minimal nonspecific bowel gas dilatation. Artur Bob MD FACR Objective Remarks GENERAL: Patient is 66 yo obese male intubated and sedated SKIN: Warm and dry. HEAD: Normocephalic. EYES: No scleral icterus. No injection or drainage. NECK: Supple, trachea midline. No JVD or lymphadenopathy. CARDIOVASCULAR:Tachycardic without murmurs, gallops, or rubs. RESPIRATORY: On mechanical ventilation, orally intubated, Breath sounds equal bilaterally. Few Coarse BS GASTROINTESTINAL: Abdomen soft, non-tender, nondistended. OGT, tube feedings infusing MUSCULOSKELETAL: 2+ bilateral edema in upper extremities. Neuro: Sedated, arousable, orally intubated, moves all 4 extremities on lightening sedation. Date of Removal: Mar 04, 2017 Line: Central Venous Catheter Side: Right A/P Assessment and Plan 1. Acute hypercapnic and hypoxemic respiratory failure. 2. COPD exacerbation. 3. Acute renal failure. 4. Hypernatremia 5. Obstructive sleep apnea and morbid obesity. 6. Ischemic dilated Cardiomyopathy. S/P AICD 03/2015 7. History of coronary artery disease. 8. Gastroesophageal reflux disease. 9. Hypertension. 10. Hyperlipidemia. 11 Pulm edema 12. Acute on chronic systolic and diastolic CHF 13. Pulmonary hypertension 14. Bacteremia Plan: Neuro: On Diprivan and Fentanyl infusion for sedation. Daily sedation vacation when appropriate. Monitor neuro status CV: Monitor HR and BP keep MAP>65mmHg. On Lopressor 12.5mg BID for rate control. On aspirin 325 milligrams p.o. daily and Plavix 75 mg p.o. daily - holding starting 03/22 in anticipation of tracheostomy. Prinivil 5mg daily 01/2017 Echo showed EF 40-45%, nl LV diastolic function, No RWMA Cardiology following-Dr. Cole. Pulm: PRVC mode mechanical ventilation: rate 12 tidal volume 600 I time 1.1 second PEEP 10 FiO2 60% Continue with vent support. Tracheostomy to be done in OR by Dr. Kirkland Bronchodilators every 4 hours, Solu-Medrol 40 mg IV BID. Pulm-Dr. Lashell Padron CXR: LLL consolidation/Atelectasis CTA chest 03/02 showed no PE, small pleural effusions Flolan inhaled nebulizer treatment stopped 03/21. Heparin GTT held on 03/25 in view of blood-tinged respiratory secretions : Monitor renal function Is and Os and avoid nephrotoxins. Electrolytes replacement per protocol. Lasix 40mg daily Decrease Free water to 200 ml Q8 on 03/22, monitor sodium level. GI: On Protonix 40 mg IV daily for GI prophylaxis. TF(Glucerna 1.5 @45ml/hr. S/p PEG tube placement 03/20 Senna, Colace for bowel regimen, 02/24 KUB abdomen: Minimal non-specific bowel gas dilatation GI is following for anemia and positive Hemoccult. ID: ID following. Stopped antibiotics on 03/23 (Vancomycin, Levaquin) monitor for signs of infections ( Fever, WBC) 03/16 C-dif PCR negative 03/14: BC: NGTD 03/14: Normal resp tiffany, urine cx: No growth 03/09 Repeat Bld cultures-staph Epi, coag negative staph- likely contaminant 03/09 Repeat sputum culture-staph aureus Heme: Monitor CBC. Heparin GTT held on 03/25 Endo: SSI with Accu-Chek q. 6-hour for glycemic control. GI prophylaxis with Protonix 40 mg BID and DVT prophylaxis with SCDs, Doppler US UE: 03/14-Thrombus throughout the cephalic veins bilaterally. ? minimal thrombus within the left subclavian vein. Was off Heparin drip as patient had bloody secretions with suctioning ( resolved ) and positive Hemoccult. Heparin resumed (cleared by GI) and subsequently stopped on 03/25 due to blood tinged respiratory secretions. Doppler US LE No DVT on 02/27 Dispo: Discussed patient with [facility]. Palliative care is following. Unable to wean off mechanical ventilation currently. He was scheduled for perc tracheostomy 03/26 however doubt that he will tolerate a bronchoscopy hence discussed with Dr. Kirkland and he plans on doing tracheostomy in the OR on 03/28. CCT 30 mins Ari Mackey MD March 27, 2017 18:34
[2017-03-27] MEDS: ATORVASTATIN 40 MG TAB PO SCH (20:43)
[2017-03-28] VITALS (34 sets, daily range): BP systolic 86–139; BP diastolic 50–73; PULSE 69–116; RESP 8–20; TEMP 97.8–99.1; O2SAT 70–99
[2017-03-28] MEDS: MIDAZOLAM 100 MG/ML INJ 100 ML IV SCH (01:22)
[2017-03-28] MEDS: PROPOFOL 1000 MG/100 ML INJ 100 ML IV SCH ×3 (01:25→23:27)
[2017-03-28] MEDS: CHLORHEXIDINE GLUCONATE 2 % 1 PACK (2 CLOTHS) TOP SCH (03:16)
[2017-03-28] MEDS: INSULIN NovoLIN REGULAR SUPPLEMENTAL SCALE SQ SCH ×4 (05:00→23:00)
[2017-03-28 05:04] LABS: BLOOD GAS BASE EXCESS 12.6 mmol/L (-2-2); BLOOD GAS CARBOXYHEMOGLOBIN 1.6 % (0-4); BLOOD GAS HCO3 37 mmol/L (22-26); BLOOD GAS METHEMOGLOBIN 1.5 % (0-2); BLOOD GAS O2 HGB SATURATION 92 % (90-100); BLOOD GAS PCO2 47 mmHg (38-42); BLOOD GAS PO2 75 mmHg (61-120); BLOOD GAS TOTAL HGB 9.2 G/DL (12.0-16.0); TEMP CORR TO 98.6
[2017-03-28 05:05] LABS: CRITICAL VALUE NO; DRAW SITE LT RADIAL; FIO2 55 %; NUMBER OF ARTERIAL PUNCTURES 1; OXYGEN DEVICE VENTILATOR; STAT NO; ULNAR PULSE PRESENT; VENT SETTINGS PRVC/AC
[2017-03-28] MEDS: FREE WATER G-TUBE SCH ×3 (05:57→22:00)
[2017-03-28] MEDS: CHLORHEXIDINE 0.12% (ORAL KIT) 15 ML CUP MT SCH ×2 (08:00→23:27)
[2017-03-28] MEDS: FUROSEMIDE 40 MG/4 ML VIAL IV PUSH SCH (08:24)
[2017-03-28] MEDS: LISINOPRIL 5 MG TAB PO SCH (08:24)
[2017-03-28] MEDS: SENNOSIDES SYRUP 8.8 MG/5 ML CUP PO SCH (08:24)
[2017-03-28] MEDS: METOPROLOL TARTRATE 25 MG TAB PO SCH ×2 (08:24→21:38)
[2017-03-28] MEDS: PANTOPRAZOLE SODIUM 40 MG VIAL IV SCH (08:25)
[2017-03-28] MEDS: methylPREDNISolone SOD SUCC 40 MG/1 ML VIAL IV PUSH SCH ×2 (08:25→21:39)
[2017-03-28] MEDS: DOCUSATE SODIUM 100 MG/10 ML UDC PO SCH ×2 (09:00→21:38)
[2017-03-28] MEDS ORDERED: PHENYLEPH/NS 1000 MCG/10 ML SYR IV ONE (12:00)
--- NOTE | 2017-03-28 13:08 | HHI.PR ---
Subjective Remarks Sedated and on the vent at 50 % FIO2, and PEEP 10 cm. For Trach today. Output was OK. No fever. Objective Vital Signs Date Time Temp Pulse Resp B/P Pulse Ox O2 Delivery O2 Flow Rate FiO2 03/28/17 12:55 95 50 03/28/17 12:15 69 12 86/51 95 03/28/17 12:00 65 03/28/17 12:00 97.8 72 12 95/52 99 03/28/17 12:00 70 03/28/17 12:00 69 17 95/55 96 03/28/17 11:45 69 12 96/53 95 03/28/17 11:30 69 12 96/54 96 03/28/17 11:15 69 12 89/51 96 03/28/17 11:00 69 12 89/53 96 03/28/17 10:56 96 50 03/28/17 10:45 69 12 95/51 95 03/28/17 10:30 69 12 101/57 95 03/28/17 10:15 69 12 104/59 95 03/28/17 10:00 70 03/28/17 10:00 69 12 98/61 96 03/28/17 09:45 69 12 90/54 95 03/28/17 09:30 69 12 113/63 96 03/28/17 09:15 69 13 110/68 97 03/28/17 09:00 69 12 115/60 99 03/28/17 08:47 97 50 03/28/17 08:45 69 12 95/59 97 03/28/17 08:30 73 13 91/54 94 03/28/17 08:15 70 12 122/59 94 03/28/17 08:00 73 12 112/59 96 03/28/17 08:00 65 03/28/17 08:00 97.8 72 12 122/58 99 03/28/17 08:00 70 03/28/17 06:00 69 03/28/17 04:16 55 03/28/17 04:10 99 55 03/28/17 04:00 85 03/28/17 04:00 65 03/28/17 04:00 98.3 72 12 107/55 99 03/28/17 02:00 91 03/28/17 00:04 98 65 03/28/17 00:00 65 03/28/17 00:00 116 03/28/17 00:00 99.1 116 20 139/73 97 03/27/17 22:00 111 03/27/17 20:12 91 65 03/27/17 20:00 123 03/27/17 20:00 99.7 123 12 110/81 94 03/27/17 20:00 65 03/27/17 18:00 74 03/27/17 16:00 71 03/27/17 16:00 98.3 75 14 106/58 95 03/27/17 16:00 65 03/27/17 15:37 96 60 03/27/17 14:00 72 I/O 03/27/17 03/27/17 03/27/17 03/28/17 03/28/17 03/28/17 07:00 15:00 23:00 07:00 15:00 23:00 Intake Total 469 ml 421 ml 436 ml 338 ml Output Total 250 ml 1000 ml 625 ml 300 ml Balance 219 ml -579 ml -189 ml 38 ml IV Total 269 ml 421 ml 224 ml 338 ml Tube Feeding 212 ml Other 200 ml Output Urine Total 250 ml 1000 ml 625 ml 300 ml # Bowel Movements 0 0 Result Diagram: 03/27/17 0610 03/27/17 0610 Objective Remarks PHYSICAL EXAMINATION GENERAL: This moderately obese elderly man is sedated, assisting the ventilator. HEENT: Head normocephalic. Pupils are reactive. Throat has some secretions. NECK: No bruits or thyroid enlargement. CHEST: Equal movements with diminished breath sounds at the bases with occ basilar crackles. HEART: The heart sounds are regular, S1 and S2. No murmur. ABDOMEN: Soft, obese, without masses. No organomegaly. Bowel sounds are faint. EXTREMITIES: No Edema with decreased pulses . NEUROLOGIC: Reflexes 1 +. Muscle wasting. SKIN: Warm and dry. Assessment and Plan Assessment and Plan IMPRESSION 1. Hypercapnic respiratory failure and hypoxemic respiratory failure. 2. COPD with chronic bronchitis and acute exacerbation. 3. Congestive heart failure. 4. Cardiomyopathy with ischemic heart disease. 5. Hypertension and hyperlipidemia. 6. Possible obstructive sleep apnea. 7. pulmonary HTN. Plan : 1. Wean O2 to keep sat >92. 2. Trach per Dr barajas 3. Chest X ray in am 4. Tube feeds at 50 CC. 5. Cont daily Lasix 40 mg. 6. Continue antibiotics. 7. prednisone 20mg daily. Bri Stout MD March 28, 2017 13:08
[2017-03-28] MEDS ORDERED: LIDOCAINE HCL 1% 50 ML VIAL ONE (13:51)
[2017-03-28] MEDS ORDERED: LIDOCAINE 1%/EPINEPHrine 1:100,000 SOLN 20 ML VIAL ONE (13:51)
[2017-03-28] MEDS ORDERED: FAMOTIDINE 20 MG/2 ML VIAL ONE (14:10)
[2017-03-28] MEDS ORDERED: DICLOFENAC SODIUM 37.5 MG/ML VIAL IV PUSH ONE (14:10)
[2017-03-28] MEDS ORDERED: MIDAZOLAM HCL 5 MG/5 ML VIAL ONE (14:10)
[2017-03-28] MEDS ORDERED: DEXAMETHASONE SOD PHOS 4 MG/ML VIAL ONE (14:10)
--- NOTE | 2017-03-28 17:03 | HHI.HCPN ---
Reason for visit a. To assist with evaluation and management of symptoms including:dyspnea, pain b. To assist medical decision maker(s) with: better understanding of current medical conditions; weighing benefits/burdens of medical treatment options; making medical treatment decisions. Subjective/Interval History Mr. Doran had tracheostomy performed earlier today and just returned to the MICU prior to my visit. is at bedside. Patient is awake, alert, somewhat restless appearing at time of my visit. He does not answer questions for me ( e.g. with head shake/nods) and won't follow simple commands for me. shows me that when she asks him to squeeze her fingers, he will do it. is upset today as patient has been crying since return to the unit. In addition, she has noted the blood tinged secretions from his trach. Hx of severe COPD and CAD with cardiomyopathy status post PPM/AICD with an EF of 20%. . Family/friend interactions Spoke with for 20 minutes at bedside and in hallway. I reassured her about the blood tinged secretions. She asked for an honest appraisal regarding what to expect. I explained how the tracheostomy will help us continue to use the breathing machine but will not have solved his underlying problems -- he still has diseased lungs and a very weak heart. She told me he was fairly vital prior to this hospitalization. She said "he did everything." He walked w /o assistive device and drove and went to the store. I explained that as ill as he is and after all he has gone through, if he does survive ICU and the hospitalizaition he will have a challenging course ahead of him. If he survives the hospitalization, he will need a period of rehab to try and get stronger. He will remain at risk for infections and re-hospitalization during this period. She was grateful for the maco conversation. She said she has no support in her decision making from her children, all of whom live in [place]. . Advance Directives Living Will: Never completed Health Care Surrogate: Never completed Durable Power of Marketing Data Specialist: Never completed Advance Directive Specifics Health Care Surrogate(s): Brooke Doran - [phone] (home), or [phone] (cellvoicemail not set up) Objective Vital Signs Date Time Temp Pulse Resp B/P Pulse Ox O2 Delivery O2 Flow Rate FiO2 5/3/17 16:06 95 50 03/28/17 14:50 97 03/28/17 14:00 70 03/28/17 12:55 95 50 03/28/17 12:15 69 12 86/51 95 03/28/17 12:00 65 03/28/17 12:00 97.8 72 12 95/52 99 03/28/17 12:00 70 03/28/17 12:00 69 17 95/55 96 03/28/17 11:45 69 12 96/53 95 03/28/17 11:30 69 12 96/54 96 03/28/17 11:15 69 12 89/51 96 03/28/17 11:00 69 12 89/53 96 03/28/17 10:56 96 50 03/28/17 10:45 69 12 95/51 95 03/28/17 10:30 69 12 101/57 95 03/28/17 10:15 69 12 104/59 95 03/28/17 10:00 70 03/28/17 10:00 69 12 98/61 96 03/28/17 09:45 69 12 90/54 95 03/28/17 09:30 69 12 113/63 96 03/28/17 09:15 69 13 110/68 97 03/28/17 09:00 69 12 115/60 99 03/28/17 08:47 97 50 03/28/17 08:45 69 12 95/59 97 03/28/17 08:30 73 13 91/54 94 03/28/17 08:15 70 12 122/59 94 03/28/17 08:00 73 12 112/59 96 03/28/17 08:00 65 03/28/17 08:00 97.8 72 12 122/58 99 03/28/17 08:00 70 03/28/17 06:00 69 03/28/17 04:16 55 03/28/17 04:10 99 55 03/28/17 04:00 85 03/28/17 04:00 65 03/28/17 04:00 98.3 72 12 107/55 99 03/28/17 02:00 91 03/28/17 00:04 98 65 03/28/17 00:00 65 03/28/17 00:00 116 03/28/17 00:00 99.1 116 20 139/73 97 03/27/17 22:00 111 03/27/17 20:12 91 65 03/27/17 20:00 123 03/27/17 20:00 99.7 123 12 110/81 94 03/27/17 20:00 65 03/27/17 18:00 74 Intake & Output 03/28/17 03/28/17 07:00 19:00 Intake Total 774 ml 250 ml Output Total 925 ml 850 ml Balance -151 ml -600 ml IV Total 562 ml 250 ml Tube Feeding 212 ml Output Urine Total 925 ml 850 ml . Physical Exam CONSTITUTIONAL/GENERAL: This is an adequately nourished patient, awake, tracking , intermittently restless. TUBES/LINES/DRAINS:central line, PEG tube, tracheostomy, cabrera catheter, SKIN: No jaundice, rashes, or lesions. Skin temperature appropriate. Not diaphoretic. HEAD: Atraumatic. Normocephalic. EYES: Pupils equal and round and reactive. . No scleral icterus. No injection or drainage. ENT: Tracheostomy in place -- surgery performed 03/28 and blood tinged dressing at site. Blood tinged secretions. NECK: Trachea midline. Supple, CARDIOVASCULAR: No murmurs, gallops, or rubs. No JVD. Peripheral pulses symmetric. RESPIRATORY/CHEST: Symmetric, unlabored respirations. Symmetric air movement. No audible ronchi/wheezes. GASTROINTESTINAL: Abdomen soft, round, No hepato-splenomegaly, or palpable masses. Bowel sounds present. GENITOURINARY: Without palpable bladder distension. catheter in place. MUSCULOSKELETAL: Edema in upper extremities. Extremities without clubbing, cyanosis, No mottling . LYMPHATICS: Not examined. NEUROLOGICAL: Eyes open, tracking, reportedly. Won't follow commands for me but seems to follow commands of . PSYCHIATRIC: Tearful. Otherwise difficult to assess due to inability to speak. . Diagnostic Tests Laboratory Laboratory Tests Test 03/27/17 03/28/17 06:10 04:50 White Blood Count 13.0 TH/MM3 (4.0-11.0) Red Blood Count 3.36 MIL/MM3 (4.50-5.90) Hemoglobin 10.0 GM/DL (13.0-17.0) Hematocrit 30.5 % (39.0-51.0) Mean Corpuscular Volume 90.7 FL (80.0-100.0) Mean Corpuscular Hemoglobin 29.8 PG (27.0-34.0) Mean Corpuscular Hemoglobin 32.9 % Concent (32.0-36.0) Red Cell Distribution Width 16.8 % (11.6-17.2) Platelet Count 108 TH/MM3 (150-450) Mean Platelet Volume 9.6 FL (7.0-11.0) Neutrophils (%) (Auto) 91.6 % (16.0-70.0) Lymphocytes (%) (Auto) 4.2 % (9.0-44.0) Monocytes (%) (Auto) 3.8 % (0.0-8.0) Eosinophils (%) (Auto) 0.1 % (0.0-4.0) Basophils (%) (Auto) 0.3 % (0.0-2.0) Neutrophils # (Auto) 11.9 TH/MM3 (1.8-7.7) Lymphocytes # (Auto) 0.5 TH/MM3 (1.0-4.8) Monocytes # (Auto) 0.5 TH/MM3 (0-0.9) Eosinophils # (Auto) 0.0 TH/MM3 (0-0.4) Basophils # (Auto) 0.0 TH/MM3 (0-0.2) CBC Comment AUTO DIFF Differential Total Cells 100 Counted Neutrophils % (Manual) 82 % (16-70) Band Neutrophils % 7 % (0-6) Lymphocytes % 4 % (9-44) Monocytes % 4 % (0-8) Neutrophils # (Manual) 12.0 TH/MM3 (1.8-7.7) Myelocytes 3 % (0-0) Differential Comment FINAL DIFF MANUAL Platelet Estimate LOW (NORMAL) Platelet Morphology Comment NORMAL (NORMAL) Sodium Level 141 MEQ/L (136-145) Potassium Level 3.9 MEQ/L (3.5-5.1) Chloride Level 97 MEQ/L (98-107) Carbon Dioxide Level 38.0 MEQ/L (21.0-32.0) Anion Gap 6 MEQ/L (5-15) Blood Urea Nitrogen 26 MG/DL (7-18) Creatinine 0.38 MG/DL (0.60-1.30) Estimat Glomerular Filtration 227 ML/MIN Rate (>89) Random Glucose 96 MG/DL (74-106) Calcium Level 9.8 MG/DL (8.5-10.1) Total Bilirubin 1.1 MG/DL (0.2-1.0) Aspartate Amino Transf 58 U/L (15-37) (AST/SGOT) Alanine Aminotransferase 109 U/L (12-78) (ALT/SGPT) Alkaline Phosphatase 67 U/L (45-117) Total Protein 5.5 GM/DL (6.4-8.2) Albumin 2.1 GM/DL (3.4-5.0) Blood Gas Puncture Site LT RADIAL Blood Gas Patient Temperature 98.6 Blood Gas HCO3 37 mmol/L (22-26) Blood Gas Base Excess 12.6 mmol/L (-2-2) Blood Gas Oxygen Saturation 92 % (90-100) Arterial Blood pH 7.50 (7.380-7.420) Arterial Blood Partial 47 mmHg (38-42) Pressure CO2 Arterial Blood Partial 75 mmHg Pressure O2 (61-120) Arterial Blood Oxygen Content 12.0 Vol % (12.0-20.0) Arterial Blood 1.6 % (0-4) Carboxyhemoglobin Arterial Blood Methemoglobin 1.5 % (0-2) Blood Gas Hemoglobin 9.2 G/DL (12.0-16.0) Oxygen Delivery Device VENTILATOR Blood Gas Ventilator Setting PRVC/AC Blood Gas Inspired Oxygen 55 % . Result Diagram: 03/27/17 0610 03/27/17 0610 Imaging Last Impressions Chest X-Ray 03/27/17 0600 Signed Impressions: Service Date/Time: Monday, March 27, 2017 03:50 - CONCLUSION: 1. Cardiomegaly and findings of congestive heart failure. The findings are improved when compared with the prior exam. Lavell Maciel MD Upper Extremity Ultrasound 03/14/17 0000 Signed Impressions: Service Date/Time: Tuesday, March 14, 2017 18:49 - CONCLUSION: 1. Thrombus throughout the cephalic veins bilaterally. These are superficial venous structures. 2. Questionable minimal thrombus within the left subclavian vein. Garrick Hinton Jr., MD CT Angiography 03/02/17 1206 Signed Impressions: Service Date/Time: Thursday, March 02, 2017 13:46 - CONCLUSION: 1. No pulmonary embolus identified. 2. Small bilateral effusions with significant dependent atelectasis bilaterally. Riley Bob MD Lower Extremity Ultrasound 02/27/17 0000 Signed Impressions: Service Date/Time: Monday, February 27, 2017 08:31 - CONCLUSION: Normal examination. Nick Farrell MD Abdomen X-Ray 02/24/17 0000 Signed Impressions: Service Date/Time: Friday, February 24, 2017 10:43 - CONCLUSION: 1. Nasogastric tube just across the GE junction. 2. Minimal nonspecific bowel gas dilatation. Artur Bob MD FACR Procedures * Orotracheal intubations/mechanical ventilation * Central line placement * PEG tube placement * Tracheostomy 03/28/17 . Assessment and Plan Disease Oriented Problem List: (1) COPD with acute exacerbation Comment: slowly improving intubated with FiO2 of 55 and PEEP of 10 (2) Ischemic dilated cardiomyopathy Comment: EF 20% (3) Hypertension (4) Atrial flutter Comment: Has PPM with AICD (5) COPD (chronic obstructive pulmonary disease) (6) Acute respiratory failure Symptom Scale: (1) Pain 0-10 Scale: Unable to quantify Comment: History of arthritis with shoulder ORIF. Other sources of pain include prolonged bedbound status; cabrera cathter; venous access lines; tracheostomy . (2) Dyspnea 0-10 Scale: Unable to quantify Comment: COPD exacerbation, now vent dependent . 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 Important Contacts Brooke Doran - [phone] (home), or [phone] (cellvoicemail not set up) . Prognosis Patient may survive ICU and hospital, but [facility] prognosis is poor given underlying lung status and severity of his cardiomyopathy. If he does survive the hospitalization, there is a high probability of recurrent hospitalizations and fairly dependent functional status between. Hopefully, he will have a greater chance of weaning now that his has trach in place. . Code Status: No Code Plan Decision Maker: Brooke Doran, , or [phone] Code Status: No code DNR at this time . Goals continue to remain aggressive short of resuscitation. Family Discussion: remains ambivalent. She says -- "I put this into God's hands, and then I took it away. I hope I have done the right thing. He wouldn' t want to live in a long-term and not be able to be active the way he was." Symptoms: Patient has ongoing orders for fentanyl and propofol to manage pain/ dyspnea/ agitation. Team is hoping to have less need for sedation now that we have the tubes out of his mouth. No further recommendations at this time. Spouse will benefit from ongoing support of palliative care team. I believe if patient has a major setback post tracheostomy, she may reconsider goals and want to transition to "comfort measures only." Time Spent Total Floor Time (mins): 38 (Total time included chart review, patient exam, collaboration with primary nurse, and above referenced meeting with spouse. ) Face to Face Time (mins): 10 >50% Counseling/Coord of Care: Yes Attestation To help prompt me to consider important information that might be impacting today's encounter and assessment, information from prior notes written by myself or my colleagues may have been "brought forward" into today's note. My signature on this note, however, is an attestation that I personally performed the exam, history, and/or decision-making noted today, and, unless otherwise indicated, the interactions with patient, family, and staff as well as the review of records all occurred today. I also attest that the listed assessment and stated plan reflect my best clinical judgment today based on the combination of historical information, prior notes, and today's exam/ interactions. When time spent is documented, it refers only to time spent today by the signer, or if indicated, combined time spent today by collaborating physician/nurse practitioner. . Ishmael Wiley MD March 28, 2017 17:03
--- NOTE | 2017-03-28 20:28 | HHI.CCPN ---
Subjective Remarks/Hospital Course The patient is a 66-year-old male with past medical history of COPD, cardiomyopathy, hypertension, gastroesophageal reflux disease, hyperlipidemia and coronary artery disease. The patient presented to [facility] ED with a 2-week history of progressive worsening shortness of breath. On arrival to the ED he was initially placed on a non-rebreather mask and ABG was performed which showed acute hypercapnic respiratory failure with a pH of 7.14, CO2 121, pAO2 141, bicarb 40, sats 93%. His laboratory data significant for hyperkalemia with potassium level 6.0 and acute renal failure with a BUN of 43 and creatinine 2.07 respectively. The chest x-ray showed cardiomegaly and findings of vascular congestion without overt failure. In the ED the patient was intubated with etomidate and rocuronium and placed on full mechanical ventilation. In addition, he is scheduled to receive 10 units IV regular insulin, 1 amp of D50 and calcium gluconate for hyperkalemia. He received cefepime, azithromycin, Solu-Medrol 125 milligrams IV push and bronchodilator treatment. When seen the patient is on Diprivan infusion for sedation and full mechanical ventilation. Per the patient is not on any oxygen at home and he occasionally smokes cigarettes. 02/24 Patient is intubated and sedated with Diprivan and Fentanyl. Switched to PC/ AC with RR 12, IP:24, IT:1.06, PEEP: 8 and FIO2 100%. CXR this morning showed interval development of bilateral perihilar and lower lung zone airspace opacity he was given Lasix 60mg total overnight. 02/25 Patient remains sedated and intubated with Diprivan and Fentanyl. Afebrile.On PC/AC with RR 12, IP:22, IT:1.10, PEEP:10, FIO2 70%. Afebrile. Renal function worse today with Cr: 1.90 from 1.72 UO: 1150ml in 24 hrs 02/26 No acute events overnight. Sedated with Fentanyl and Diprivan and intubated. Afebrile. His O2 requirements is less now on PC/AC with IP:22, IT: 1.1 with PEEP: 10 and FIO2 55%. Renal function improving with Cr: 1.42 today from 1.90. Tolerating tube feeds. 02/27 Patient remains sedated with Diprivan and Fentanyl infusion and intubated. Afebrile. 02/28: Remains sedated, orally intubated on mechanical ventilation. Being diuresed with Bumex. Tolerating tube feeds. 03/01: Remains sedated, orally intubated on mechanical ventilation. Being diabetes. Remains on PEEP of 10 and FiO2 60% 03/02 Patient remains sedated with Diprivan and Fentanyl and intubated. On PC/AC with PEEP: 10 and FIO2 80% overnight and sats 93-94%. Afebrile. 03/03: The patient remains on high respiratory requirements PEEP of 10, and FiO2 70%. 03/04: Tmax 99.9. Overnight the patient was noted to have desaturations the patient received a bolus of midazolam and fentanyl for ventilator dyssynchrony. The patient was redosed with Diamox with approximately 2.5 L diuresis in the last 12 hours. The patient continues on an FiO2 of 70% with PEEP of 10 to maintain an O2 sat of 90%. 03/05: Afebrile. Patient's FiO2 remains at 60% to maintain O2sat ranging in 92% . Future plans for tracheostomy discussed with when ventilator requirements are decreased. Patient currently is on a PEEP of 10. Patient receiving multiple doses of diuretics chest x-ray still showing increased vascular congestion. Cardiology following metalazone added to medication regimen per cardiology for diuresis. 03/06: Patient's O2 requirements were increased overnight to FiO2 of 90%. The patient's FiO2 has been decreased now currently to 70% O2 sat is 90% ABG is pending. The patient's diuresis effective, 1 kg weight loss in 24 hours. 03/07: The patient continues to have effective diuresis. The patient's O2 requirements currently FiO2 is 70% to maintain a sat of 90-91%. Discussion with Ms. London yesterday, she would like to discuss with palliative team goals of care. Palliative care consult initiated. 03/08: The patient was less responsive to diuretics today, positive weight balance last 24 hours. The patient was placed on a Lasix infusion, noted occasional PVCs on telemetry. Patient potassium repletion ongoing, schedule potassium PO intake increased to 50 mEq twice a day. Free water flushes placed on hold, was sodium level 145 will continue to monitor. Chest x-ray shows slight improvement. Continued management of ventilator settings ARDS protocol, maintaining PaO2 60 or greater and adjusting vent settings based on PaO2. Sedation vacation attempted today by [employer]IL [employer]ER[employer] SUPERVISOR, GCS 11T. Noted WBC elevation today ID consulted. 03/09: Today the patient was noted to have increasing FiO2 requirements with a PaO2 of 61. FiO2 was increased to 100%, PEEP was gradually increased to 12, then 14. The patient subsequently became hypotensive, likely due to increasing PEEP, but chest x-ray also obtained to rule out pneumothorax which was clear. The patient subsequently was laced on phenylephrine low-dose 20 mcgs which was eventually weaned off. The patient was placed on PEEP at 7 and FiO2 of 100%, sedation was weaned to lower dose. Palliative care also discussed with goals of care and the patient was made DNR. 03/10 noted creatinine elevation last night, Lasix discontinued. Dobutamine initiated per cardiology this morning. The patient continues to have high requirements on a PEEP of 8 and FiO2 of 100% his PaO2 49.2. PEEP has been increased plan to initiate Flolan. 03/11: Tmax 100.5. FRANK resolved with dobutamine infusion, heart rate 110. Microbiology report bacteremia gram-positive cocci and sputum. Patient currently on Diflucan. Will begin Linezolid in the setting of recent FRANK and oliguria, and await further recommendations from infectious disease framing consultant. Respiratory status deteriorating. The patient was placed on Flolan last night PaO2 67. Patient remains on a PEEP of 10, unable to advance secondary to hypotension. 03/12 Patient remains sedated with Diprivan, Fentanyl and intubated. On Dobutamine 2.5 mics and Flolan. Remains On PC/AC with RR 12, IP:22, IT:1.20, PEEP;10 and FIo2 90%. Afebrile. 03/13 Patient is sedated with Diprivan and Fentanyl and intubated. On PC/AC with PEEP:12, FIO2 80%. Tmax 101.7 Remains on Dobutamine and Flolan. 03/14 Patient remains sedated and intubated. On PC/AC with PEEP:12 and FIO2 100% . T: 101.5 last night. On Flolan off Dobutamine. 03/15 No acute events overnight. Sedated with Diprivan and Fentanyl. On PC/AC with PEEP: 12, FIO2 down to 70%. Tmax 101.6. On Flolan nebs. 03/16 Patient remains sedated and intubated On PC/AC with decrease in FIO2 requirements down to 65% FIO2 with PEEP: 12. Tmax 101.4. On Heparin drip. 03/17 Patient remains sedated and intubated. T: 99.7, heparin drip turned off as patient had bloody secretions with suctioning and Hemoccult was positive. 03/18 No acute events overnight. Remains sedated and intubated. Tmax 102.8. Off heparin drip patient has minimal bloody secretions. 03/19 Patient remains sedated with Diprivan and Fentanyl intubated. Afebrile. 03/20 No acute events overnight. Sedated and intubated. Tmax : 100.8. NPO for EGD and PEG tube placement today. 03/21 remains sedated, orally intubated on mechanical ventilation. Flolan inhaled stopped today. Switched to PRVC mode mechanical ventilation from PC/AC. 03/22:Remains sedated, orally intubated on mechanical ventilation. Deep decreased to +10, FiO2 55%. 03/23: Arouses on lightening sedation, moving all 4 extremities. Orally intubated on mechanical ventilation. On PEEP of +10, FiO2 50% 03/24: Sedated, arousable, orally intubated on mechanical ventilation. PEEP +10 , FiO2 60% today. 03/25: Remains sedated, orally intubated on mechanical ventilation. PEEP of +10 , FiO2 50%. Minimal blood-tinged respiratory secretions noted. Heparin drip stopped 03/25 03/26: Remains sedated, orally intubated on mechanical ventilation. PEEP remains at +10, FiO2 60%. Discussed with Dr. Bal, doubt patient can tolerate bronchoscopies hence he is planning to do tracheostomy in the OR. 03/27: Sedated, arousable, remains orally intubated on mechanical ventilation. Awaiting tracheostomy in the OR which is scheduled for tomorrow. 03/28: Sedated, arousable, remains orally intubated on mechanical ventilation at the time of my evaluation in the morning. Subsequently taken for tracheostomy Objective Vital Signs Date Time Temp Pulse Resp B/P Pulse Ox O2 Delivery O2 Flow Rate FiO2 03/28/17 20:01 94 50 03/28/17 16:00 70 03/28/17 16:00 97.8 12 97/53 Intake and Output 03/27/17 03/27/17 03/28/17 08:00 16:00 00:00 Intake Total 469 ml 421 ml 436 ml Output Total 250 ml 1000 ml 625 ml Balance 219 ml -579 ml -189 ml Result Diagram: 03/27/17 0610 03/27/17 0610 Other Results Laboratory Tests Test 03/28/17 04:50 Blood Gas Puncture Site LT RADIAL Blood Gas Patient Temperature 98.6 Blood Gas HCO3 37 mmol/L (22-26) Blood Gas Base Excess 12.6 mmol/L (-2-2) Blood Gas Oxygen Saturation 92 % (90-100) Arterial Blood pH 7.50 (7.380-7.420) Arterial Blood Partial 47 mmHg (38-42) Pressure CO2 Arterial Blood Partial 75 mmHg Pressure O2 (61-120) Arterial Blood Oxygen Content 12.0 Vol % (12.0-20.0) Arterial Blood 1.6 % (0-4) Carboxyhemoglobin Arterial Blood Methemoglobin 1.5 % (0-2) Blood Gas Hemoglobin 9.2 G/DL (12.0-16.0) Oxygen Delivery Device VENTILATOR Blood Gas Ventilator Setting PRVC/AC Blood Gas Inspired Oxygen 55 % Imaging Last Impressions Chest X-Ray 03/18/17 0000 Signed Impressions: Service Date/Time: Saturday, March 18, 2017 08:43 - CONCLUSION: Left lower lobe consolidation/atelectasis and likely some effusion. Nick Menchaca MD Upper Extremity Ultrasound 03/14/17 0000 Signed Impressions: Service Date/Time: Tuesday, March 14, 2017 18:49 - CONCLUSION: 1. Thrombus throughout the cephalic veins bilaterally. These are superficial venous structures. 2. Questionable minimal thrombus within the left subclavian vein. Garrick Hinton Jr., MD CT Angiography 03/02/17 1206 Signed Impressions: Service Date/Time: Thursday, March 02, 2017 13:46 - CONCLUSION: 1. No pulmonary embolus identified. 2. Small bilateral effusions with significant dependent atelectasis bilaterally. Riley Bob MD Lower Extremity Ultrasound 02/27/17 0000 Signed Impressions: Service Date/Time: Monday, February 27, 2017 08:31 - CONCLUSION: Normal examination. Nick Farrell MD Abdomen X-Ray 02/24/17 0000 Signed Impressions: Service Date/Time: Friday, February 24, 2017 10:43 - CONCLUSION: 1. Nasogastric tube just across the GE junction. 2. Minimal nonspecific bowel gas dilatation. Artur Bob MD FACR Objective Remarks GENERAL: Patient is 66 yo obese male intubated and sedated at the time of my evaluation this morning SKIN: Warm and dry. HEAD: Normocephalic. EYES: No scleral icterus. No injection or drainage. NECK: Supple, trachea midline. No JVD or lymphadenopathy. CARDIOVASCULAR:Tachycardic without murmurs, gallops, or rubs. RESPIRATORY: On mechanical ventilation, orally intubated, Breath sounds equal bilaterally. Few Coarse BS GASTROINTESTINAL: Abdomen soft, non-tender, nondistended. OGT, tube feedings infusing MUSCULOSKELETAL: 2+ bilateral edema in upper extremities. Neuro: Sedated, arousable, orally intubated, moves all 4 extremities on lightening sedation. Date of Removal: Mar 04, 2017 Line: Central Venous Catheter Side: Right A/P Assessment and Plan 1. Acute hypercapnic and hypoxemic respiratory failure. 2. COPD exacerbation. 3. Acute renal failure. 4. Hypernatremia 5. Obstructive sleep apnea and morbid obesity. 6. Ischemic dilated Cardiomyopathy. S/P AICD 03/2015 7. History of coronary artery disease. 8. Gastroesophageal reflux disease. 9. Hypertension. 10. Hyperlipidemia. 11 Pulm edema 12. Acute on chronic systolic and diastolic CHF 13. Pulmonary hypertension 14. Bacteremia Plan: Neuro: On Diprivan and Fentanyl infusion for sedation. Daily sedation vacation when appropriate. Monitor neuro status CV: Monitor HR and BP keep MAP>65mmHg. On Lopressor 12.5mg BID for rate control. On aspirin 325 milligrams p.o. daily and Plavix 75 mg p.o. daily - holding starting 03/22 in anticipation of tracheostomy. Prinivil 5mg daily 01/2017 Echo showed EF 40-45%, nl LV diastolic function, No RWMA Cardiology following-Dr. Cole. Pulm: PRVC mode mechanical ventilation: rate 12 tidal volume 600 I time 1.1 second PEEP 10 FiO2 60% Continue with vent support. Tracheostomy in OR by Dr. Kirkland on 03/28 evening Bronchodilators every 4 hours, Solu-Medrol 40 mg IV BID. Pulm-Dr. Lashell Padron CXR: LLL consolidation/Atelectasis CTA chest 03/02 showed no PE, small pleural effusions Flolan inhaled nebulizer treatment stopped 03/21. Heparin GTT held on 03/25 in view of blood-tinged respiratory secretions : Monitor renal function Is and Os and avoid nephrotoxins. Electrolytes replacement per protocol. Lasix 40mg daily Decrease Free water to 200 ml Q8 on 03/22, monitor sodium level. GI: On Protonix 40 mg IV daily for GI prophylaxis. TF(Glucerna 1.5 @45ml/hr. S/p PEG tube placement 03/20 Senna, Colace for bowel regimen, 02/24 KUB abdomen: Minimal non-specific bowel gas dilatation GI is following for anemia and positive Hemoccult. ID: ID following. Stopped antibiotics on 03/23 (Vancomycin, Levaquin) monitor for signs of infections ( Fever, WBC) 03/16 C-dif PCR negative 03/14: BC: NGTD 03/14: Normal resp tiffany, urine cx: No growth 03/09 Repeat Bld cultures-staph Epi, coag negative staph- likely contaminant 03/09 Repeat sputum culture-staph aureus Heme: Monitor CBC. Heparin GTT held on 03/25 Endo: SSI with Accu-Chek q. 6-hour for glycemic control. GI prophylaxis with Protonix 40 mg BID and DVT prophylaxis with SCDs, Doppler US UE: 03/14-Thrombus throughout the cephalic veins bilaterally. ? minimal thrombus within the left subclavian vein. Was off Heparin drip as patient had bloody secretions with suctioning ( resolved ) and positive Hemoccult. Heparin resumed (cleared by GI) and subsequently stopped on 03/25 due to blood tinged respiratory secretions. Doppler US LE No DVT on 02/27 Dispo: Discussed patient with [employer] SUPERVISOR. Palliative care is following. Unable to wean off mechanical ventilation currently. He was scheduled for perc tracheostomy 03/26 however doubt that he will tolerate a bronchoscopy hence discussed with Dr. Kirkland and he plans on doing tracheostomy in the OR on 03/28. CCT 30 mins Ari Mackey MD March 28, 2017 20:28
[2017-03-28] MEDS: ATORVASTATIN 40 MG TAB PO SCH (21:38)
[2017-03-29] VITALS (28 sets, daily range): BP systolic 97–157; BP diastolic 53–86; PULSE 70–115; RESP 12–24; TEMP 98.4–99.2; O2SAT 94–99
[2017-03-29] MEDS: PROPOFOL 1000 MG/100 ML INJ 100 ML IV SCH ×3 (03:07→19:04)
[2017-03-29] MEDS: CHLORHEXIDINE GLUCONATE 2 % 1 PACK (2 CLOTHS) TOP SCH (04:00)
[2017-03-29] MEDS: INSULIN NovoLIN REGULAR SUPPLEMENTAL SCALE SQ SCH ×4 (05:00→23:00)
[2017-03-29] MEDS: FREE WATER G-TUBE SCH ×3 (05:16→22:00)
[2017-03-29] MEDS: fentaNYL DRIP 250 ML IV SCH (06:27)
[2017-03-29] MEDS: CHLORHEXIDINE 0.12% (ORAL KIT) 15 ML CUP MT SCH ×2 (08:00→20:12)
[2017-03-29] MEDS: LISINOPRIL 5 MG TAB PO SCH (08:44)
[2017-03-29] MEDS: SENNOSIDES SYRUP 8.8 MG/5 ML CUP PO SCH (08:44)
[2017-03-29] MEDS: DOCUSATE SODIUM 100 MG/10 ML UDC PO SCH ×2 (08:44→20:12)
[2017-03-29] MEDS: PANTOPRAZOLE SODIUM 40 MG VIAL IV SCH (08:45)
[2017-03-29] MEDS: methylPREDNISolone SOD SUCC 40 MG/1 ML VIAL IV PUSH SCH ×2 (08:45→20:12)
[2017-03-29] MEDS: METOPROLOL TARTRATE 25 MG TAB PO SCH ×2 (08:45→20:13)
[2017-03-29] MEDS: FUROSEMIDE 40 MG/4 ML VIAL IV PUSH SCH (08:45)
--- NOTE | 2017-03-29 12:50 | MP ---
cc: JACEK CEDENO MD DATE OF SURGERY 03/28/2017 PREOPERATIVE DIAGNOSES Respiratory failure. Sepsis. POSTOPERATIVE DIAGNOSES Respiratory failure. Sepsis. PROCEDURE Blue Rhino tracheostomy and bronchoscopy. SURGEON MD Vipul ANESTHESIA General and 1% Xylocaine. ESTIMATED BLOOD LOSS 5 cc. PROCEDURE PERFORMED The patient is prepped and draped in the usual fashion. A vertical incision was made in the lower neck just above the sternum, deepened down with a hemostat to the level of the trachea and when to palpation the level of second to third tracheal ring is determined, Angiocath is inserted and, after the endotracheal tube is withdrawn by Anesthesia. Further procedures is monitored by bronchoscope. Through the Angiocath the guidewire is inserted and then over the guidewire the punch dilator is placed. Next the Blue Rhino dilator is placed and trachea dilated to accommodate for an 8 Shiley cannula. After that tracheostomy cannula is inserted, connected to the respirator, end-tidal CO2 checked and then cannula is sutured in place with 2-0 Prolene and secured around the neck. The patient tolerated the procedure well. Jacek BURNS/TELLO /11:51 AM /12:24 PM
--- NOTE | 2017-03-29 16:17 | HHI.HCPN ---
Reason for visit a. To assist with evaluation and management of symptoms including: dyspnea, pain b. To assist medical decision maker(s) with: better understanding of current medical conditions; weighing benefits/burdens of medical treatment options; making medical treatment decisions. . Subjective/Interval History Palliative care to follow-up for further clarifications of goals of care and emotional support. Patient status 1 day post tracheostomy. Remains in MICU, Brooke at bedside. Patient awake, eyes open, intermittently following some simple commands such as "squeeze my hand". Patient currently on propofol and fentanyl for pain. Currently ventilated via trach on 50% FiO2. Unable to initiate weaning trial at this time secondary to increased oxygen requirement. Patient appears to be crying at times, not answering or attempting to communicate to me during my visit. Patient afebrile, stable hemodynamically. 97% oxygen saturation on 50% FiO2. Last labs from 03/27/17 showing WBC 13.0, Hgb 10.0, platelet count 108. Sodium 141, potassium 3.9, BUN/creatinine 26/0.38. Albumin 2.1. Chest x-ray 52 showing cardiomegaly and CHF. Hx of severe COPD and CAD with cardiomyopathy status post PPM/AICD with an EF of 20%. . Family/friend interactions Patient's Brooke at bedside. Medical update provided. reports feeling somewhat guilty that patient is now trached.. Discussed with that at this time is unclear if patient will be able to wean off ventilator support secondary to underlying lung condition and profound physical deconditioning. Goals of care at this point is to allow a few more days for clinical improvement , likely to transition patient to comfort directed care should patient's condition does not improve/unable to wean off vent support or condition worsen. Ongoing emotional support and active listening provided to . . Advance Directives Living Will: Never completed Health Care Surrogate: Never completed Durable Power of Supervisor Felling Bucking: Never completed Advance Directive Specifics Health Care Surrogate(s): Brooke Doran - [phone] (home), or [phone] (cellvoicemail not set up) Significant change in goals: No code. Goals of care remains unchanged, allow a few more days for clinical improvement. Likely to transition to comfort directed care if his condition does not improve/unable to wean off vent support or condition worsened. . Objective Vital Signs Date Time Temp Pulse Resp B/P Pulse Ox O2 Delivery O2 Flow Rate FiO2 03/29/17 13:55 97 50 03/29/17 12:00 89 03/29/17 12:00 50 03/29/17 12:00 70 12 106/58 97 03/29/17 10:00 89 03/29/17 10:00 70 12 106/58 97 03/29/17 09:45 71 12 102/59 97 03/29/17 09:30 70 12 107/62 98 03/29/17 09:15 70 12 110/64 98 03/29/17 09:02 97 50 03/29/17 09:00 71 12 105/60 97 03/29/17 08:45 71 12 105/62 97 03/29/17 08:30 70 12 97/57 95 03/29/17 08:15 71 12 104/56 95 03/29/17 08:01 98 03/29/17 08:01 72 12 109/53 94 03/29/17 08:00 98.4 73 12 157/86 98 03/29/17 08:00 73 12 94 03/29/17 08:00 50 03/29/17 07:51 98 03/29/17 06:00 98 03/29/17 04:45 97 50 03/29/17 04:00 93 03/29/17 04:00 98.4 93 12 126/60 98 03/29/17 04:00 50 03/29/17 02:00 103 03/29/17 00:30 97 50 03/29/17 00:00 50 03/29/17 00:00 98.4 70 14 116/55 99 03/29/17 00:00 112 03/28/17 22:00 70 03/28/17 20:01 94 50 03/28/17 20:00 70 03/28/17 20:00 50 03/28/17 20:00 98.0 70 12 95/50 70 03/28/17 16:06 95 50 03/28/17 16:00 70 03/28/17 16:00 65 03/28/17 16:00 97.8 81 12 97/53 99 Intake & Output 03/29/17 03/29/17 07:00 19:00 Intake Total 472 ml Output Total 650 ml Balance -178 ml IV Total 472 ml Output Urine Total 650 ml Physical Exam CONSTITUTIONAL/GENERAL: This is an adequately nourished patient, awake, tracking , intermittently restless. TUBES/LINES/DRAINS:central line, PEG tube, tracheostomy, cabrera catheter, SKIN: No jaundice, rashes, or lesions. Skin temperature appropriate. Not diaphoretic. HEAD: Atraumatic. Normocephalic. EYES: Pupils equal and round and reactive. No scleral icterus. No injection or drainage. ENT: Tracheostomy in place. NECK: Trachea midline. Supple, CARDIOVASCULAR: No murmurs, gallops, or rubs. Peripheral pulses symmetric. Edema to upper extremities. RESPIRATORY/CHEST: Symmetric, unlabored respirations. Symmetric air movement. No audible ronchi/wheezes. Remains on vent support via trach. GASTROINTESTINAL: Abdomen soft, round. Positive bowel sounds. GENITOURINARY: Without palpable bladder distension. catheter in place. MUSCULOSKELETAL: Edema in upper extremities. Extremities without clubbing, cyanosis. NEUROLOGICAL: Eyes open, tracking. Intermittently following commands. Not attempting to communicate during my visit. PSYCHIATRIC: Tearful. Otherwise difficult to assess due to inability to speak. . Diagnostic Tests Laboratory Laboratory Tests Test 03/27/17 03/28/17 06:10 04:50 White Blood Count 13.0 TH/MM3 (4.0-11.0) Red Blood Count 3.36 MIL/MM3 (4.50-5.90) Hemoglobin 10.0 GM/DL (13.0-17.0) Hematocrit 30.5 % (39.0-51.0) Mean Corpuscular Volume 90.7 FL (80.0-100.0) Mean Corpuscular Hemoglobin 29.8 PG (27.0-34.0) Mean Corpuscular Hemoglobin 32.9 % Concent (32.0-36.0) Red Cell Distribution Width 16.8 % (11.6-17.2) Platelet Count 108 TH/MM3 (150-450) Mean Platelet Volume 9.6 FL (7.0-11.0) Neutrophils (%) (Auto) 91.6 % (16.0-70.0) Lymphocytes (%) (Auto) 4.2 % (9.0-44.0) Monocytes (%) (Auto) 3.8 % (0.0-8.0) Eosinophils (%) (Auto) 0.1 % (0.0-4.0) Basophils (%) (Auto) 0.3 % (0.0-2.0) Neutrophils # (Auto) 11.9 TH/MM3 (1.8-7.7) Lymphocytes # (Auto) 0.5 TH/MM3 (1.0-4.8) Monocytes # (Auto) 0.5 TH/MM3 (0-0.9) Eosinophils # (Auto) 0.0 TH/MM3 (0-0.4) Basophils # (Auto) 0.0 TH/MM3 (0-0.2) CBC Comment AUTO DIFF Differential Total Cells 100 Counted Neutrophils % (Manual) 82 % (16-70) Band Neutrophils % 7 % (0-6) Lymphocytes % 4 % (9-44) Monocytes % 4 % (0-8) Neutrophils # (Manual) 12.0 TH/MM3 (1.8-7.7) Myelocytes 3 % (0-0) Differential Comment FINAL DIFF MANUAL Platelet Estimate LOW (NORMAL) Platelet Morphology Comment NORMAL (NORMAL) Sodium Level 141 MEQ/L (136-145) Potassium Level 3.9 MEQ/L (3.5-5.1) Chloride Level 97 MEQ/L (98-107) Carbon Dioxide Level 38.0 MEQ/L (21.0-32.0) Anion Gap 6 MEQ/L (5-15) Blood Urea Nitrogen 26 MG/DL (7-18) Creatinine 0.38 MG/DL (0.60-1.30) Estimat Glomerular Filtration 227 ML/MIN Rate (>89) Random Glucose 96 MG/DL (74-106) Calcium Level 9.8 MG/DL (8.5-10.1) Total Bilirubin 1.1 MG/DL (0.2-1.0) Aspartate Amino Transf 58 U/L (15-37) (AST/SGOT) Alanine Aminotransferase 109 U/L (12-78) (ALT/SGPT) Alkaline Phosphatase 67 U/L (45-117) Total Protein 5.5 GM/DL (6.4-8.2) Albumin 2.1 GM/DL (3.4-5.0) Blood Gas Puncture Site LT RADIAL Blood Gas Patient Temperature 98.6 Blood Gas HCO3 37 mmol/L (22-26) Blood Gas Base Excess 12.6 mmol/L (-2-2) Blood Gas Oxygen Saturation 92 % (90-100) Arterial Blood pH 7.50 (7.380-7.420) Arterial Blood Partial 47 mmHg (38-42) Pressure CO2 Arterial Blood Partial 75 mmHg Pressure O2 (61-120) Arterial Blood Oxygen Content 12.0 Vol % (12.0-20.0) Arterial Blood 1.6 % (0-4) Carboxyhemoglobin Arterial Blood Methemoglobin 1.5 % (0-2) Blood Gas Hemoglobin 9.2 G/DL (12.0-16.0) Oxygen Delivery Device VENTILATOR Blood Gas Ventilator Setting PRVC/AC Blood Gas Inspired Oxygen 55 % Result Diagram: 03/27/17 0610 03/27/17 0610 Imaging Last Impressions Chest X-Ray 03/27/17 0600 Signed Impressions: Service Date/Time: Monday, March 27, 2017 03:50 - CONCLUSION: 1. Cardiomegaly and findings of congestive heart failure. The findings are improved when compared with the prior exam. Lavell Maciel MD Upper Extremity Ultrasound 03/14/17 0000 Signed Impressions: Service Date/Time: Tuesday, March 14, 2017 18:49 - CONCLUSION: 1. Thrombus throughout the cephalic veins bilaterally. These are superficial venous structures. 2. Questionable minimal thrombus within the left subclavian vein. Garrick Hinton Jr., MD CT Angiography 03/02/17 1206 Signed Impressions: Service Date/Time: Thursday, March 02, 2017 13:46 - CONCLUSION: 1. No pulmonary embolus identified. 2. Small bilateral effusions with significant dependent atelectasis bilaterally. Riley Bob MD Lower Extremity Ultrasound 02/27/17 0000 Signed Impressions: Service Date/Time: Monday, February 27, 2017 08:31 - CONCLUSION: Normal examination. Nick Farrell MD Abdomen X-Ray 02/24/17 0000 Signed Impressions: Service Date/Time: Friday, February 24, 2017 10:43 - CONCLUSION: 1. Nasogastric tube just across the GE junction. 2. Minimal nonspecific bowel gas dilatation. Artur Bob MD FACR Procedures * Central line placement * PEG tube placement * Tracheostomy 03/28/17 . Assessment and Plan Disease Oriented Problem List: (1) Acute respiratory failure (2) COPD with acute exacerbation Comment: Currently intubated with FiO2 of 50% (3) Ischemic dilated cardiomyopathy Comment: EF 20% (4) Atrial flutter Comment: Has PPM with AICD (5) COPD (chronic obstructive pulmonary disease) Symptom Scale: (1) Pain 0-10 Scale: Unable to quantify Comment: History of arthritis with shoulder ORIF. Other sources of pain include prolonged bedbound status; cabrera catheter; venous access lines; tracheostomy . (2) Dyspnea 0-10 Scale: Unable to quantify Comment: COPD exacerbation, now vent dependent . 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 Important Contacts Brooke Doran - [phone] (home), or [phone] (cellvoicemail not set up) . 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 If he does survive the hospitalization, there is a high probability of recurrent hospitalizations and fairly dependent functional status between. Hopefully, he will have a greater chance of weaning now that his has trach in place. . Code Status: No Code Plan * CODE STATUS: No code. DNR. * HEALTHCARE DECISION-MAKER: Patient appears incapacitated at this time secondary to clinical condition. Unclear if he will regain capacity. Healthcare proxy is Brooke. * GOALS OF CARE: Goals of care at this point is to allow a few more days for clinical improvement, likely to transition patient to comfort directed care should patient's condition does not improve/unable to wean off vent support or condition worsen. * SYMPTOMS: = Shortness of breath, currently vent dependent at this time. FiO2 50%. Unable to start weaning trials at this time. Hx of severe COPD and CAD with cardiomyopathy status post PPM/AICD with an EF of 20%. ==Debility, secondary to prolonged hospitalization. == Pain, secondary to prolonged bedrest , trach. Currently on fentanyl drip. * Ongoing emotional support and active listening provided. Spiritual care following. * Palliative care contact information has been provided to patient's . * Palliative care will continue to follow-up patient and family for further clarifications of goals of care as patient's clinical course continues to evolve. . Symptoms: Patient has ongoing orders for fentanyl and propofol to manage pain/ dyspnea/ agitation. Team is hoping to have less need for sedation now that we have the tubes out of his mouth. No further recommendations at this time. Spouse will benefit from ongoing support of palliative care team. I believe if patient has a major setback post tracheostomy, she may reconsider goals and want to transition to "comfort measures only. Time Spent Total Floor Time (mins): 33 (Total time to include review of medical records, physical exam and bedside conversation with patient's .) >50% Counseling/Coord of Care: Yes Collaborating MD Comments To help prompt me to consider important information that might be impacting today's encounter and assessment, information from prior notes written by myself or my colleagues may have been "brought forward" into today's note. My signature on this note, however, is an attestation that I personally performed the exam, history, and/or decision-making noted today, and, unless otherwise indicated, the interactions with patient, family, and staff as well as the review of records all occurred today. I also attest that the listed assessment and stated plan reflect my best clinical judgment today based on the combination of historical information, prior notes, and today's exam/ interactions. When time spent is documented, it refers only to time spent today by the signer, or if indicated, combined time spent today by collaborating physician/nurse practitioner. Sapphire Chen March 29, 2017 16:17
--- NOTE | 2017-03-29 17:16 | HHI.CCPN ---
Subjective Remarks/Hospital Course The patient is a 66-year-old male with past medical history of COPD, cardiomyopathy, hypertension, gastroesophageal reflux disease, hyperlipidemia and coronary artery disease. The patient presented to [facility] ED with a 2-week history of progressive worsening shortness of breath. On arrival to the ED he was initially placed on a non-rebreather mask and ABG was performed which showed acute hypercapnic respiratory failure with a pH of 7.14, CO2 121, pAO2 141, bicarb 40, sats 93%. His laboratory data significant for hyperkalemia with potassium level 6.0 and acute renal failure with a BUN of 43 and creatinine 2.07 respectively. The chest x-ray showed cardiomegaly and findings of vascular congestion without overt failure. In the ED the patient was intubated with etomidate and rocuronium and placed on full mechanical ventilation. In addition, he is scheduled to receive 10 units IV regular insulin, 1 amp of D50 and calcium gluconate for hyperkalemia. He received cefepime, azithromycin, Solu-Medrol 125 milligrams IV push and bronchodilator treatment. When seen the patient is on Diprivan infusion for sedation and full mechanical ventilation. Per the patient is not on any oxygen at home and he occasionally smokes cigarettes. 02/24 Patient is intubated and sedated with Diprivan and Fentanyl. Switched to PC/ AC with RR 12, IP:24, IT:1.06, PEEP: 8 and FIO2 100%. CXR this morning showed interval development of bilateral perihilar and lower lung zone airspace opacity he was given Lasix 60mg total overnight. 02/25 Patient remains sedated and intubated with Diprivan and Fentanyl. Afebrile.On PC/AC with RR 12, IP:22, IT:1.10, PEEP:10, FIO2 70%. Afebrile. Renal function worse today with Cr: 1.90 from 1.72 UO: 1150ml in 24 hrs 02/26 No acute events overnight. Sedated with Fentanyl and Diprivan and intubated. Afebrile. His O2 requirements is less now on PC/AC with IP:22, IT: 1.1 with PEEP: 10 and FIO2 55%. Renal function improving with Cr: 1.42 today from 1.90. Tolerating tube feeds. 02/27 Patient remains sedated with Diprivan and Fentanyl infusion and intubated. Afebrile. 02/28: Remains sedated, orally intubated on mechanical ventilation. Being diuresed with Bumex. Tolerating tube feeds. 03/01: Remains sedated, orally intubated on mechanical ventilation. Being diabetes. Remains on PEEP of 10 and FiO2 60% 03/02 Patient remains sedated with Diprivan and Fentanyl and intubated. On PC/AC with PEEP: 10 and FIO2 80% overnight and sats 93-94%. Afebrile. 03/03: The patient remains on high respiratory requirements PEEP of 10, and FiO2 70%. 03/04: Tmax 99.9. Overnight the patient was noted to have desaturations the patient received a bolus of midazolam and fentanyl for ventilator dyssynchrony. The patient was redosed with Diamox with approximately 2.5 L diuresis in the last 12 hours. The patient continues on an FiO2 of 70% with PEEP of 10 to maintain an O2 sat of 90%. 03/05: Afebrile. Patient's FiO2 remains at 60% to maintain O2sat ranging in 92% . Future plans for tracheostomy discussed with when ventilator requirements are decreased. Patient currently is on a PEEP of 10. Patient receiving multiple doses of diuretics chest x-ray still showing increased vascular congestion. Cardiology following metalazone added to medication regimen per cardiology for diuresis. 03/06: Patient's O2 requirements were increased overnight to FiO2 of 90%. The patient's FiO2 has been decreased now currently to 70% O2 sat is 90% ABG is pending. The patient's diuresis effective, 1 kg weight loss in 24 hours. 03/07: The patient continues to have effective diuresis. The patient's O2 requirements currently FiO2 is 70% to maintain a sat of 90-91%. Discussion with Ms. London yesterday, she would like to discuss with palliative team goals of care. Palliative care consult initiated. 03/08: The patient was less responsive to diuretics today, positive weight balance last 24 hours. The patient was placed on a Lasix infusion, noted occasional PVCs on telemetry. Patient potassium repletion ongoing, schedule potassium PO intake increased to 50 mEq twice a day. Free water flushes placed on hold, was sodium level 145 will continue to monitor. Chest x-ray shows slight improvement. Continued management of ventilator settings ARDS protocol, maintaining PaO2 60 or greater and adjusting vent settings based on PaO2. Sedation vacation attempted today by [employer], GCS 11T. Noted WBC elevation today ID consulted. 03/09: Today the patient was noted to have increasing FiO2 requirements with a PaO2 of 61. FiO2 was increased to 100%, PEEP was gradually increased to 12, then 14. The patient subsequently became hypotensive, likely due to increasing PEEP, but chest x-ray also obtained to rule out pneumothorax which was clear. The patient subsequently was laced on phenylephrine low-dose 20 mcgs which was eventually weaned off. The patient was placed on PEEP at 7 and FiO2 of 100%, sedation was weaned to lower dose. Palliative care also discussed with goals of care and the patient was made DNR. 03/10 noted creatinine elevation last night, Lasix discontinued. Dobutamine initiated per cardiology this morning. The patient continues to have high requirements on a PEEP of 8 and FiO2 of 100% his PaO2 49.2. PEEP has been increased plan to initiate Flolan. 03/11: Tmax 100.5. FRANK resolved with dobutamine infusion, heart rate 110. Microbiology report bacteremia gram-positive cocci and sputum. Patient currently on Diflucan. Will begin Linezolid in the setting of recent FRANK and oliguria, and await further recommendations from infectious disease professional services consultant. Respiratory status deteriorating. The patient was placed on Flolan last night PaO2 67. Patient remains on a PEEP of 10, unable to advance secondary to hypotension. 03/12 Patient remains sedated with Diprivan, Fentanyl and intubated. On Dobutamine 2.5 mics and Flolan. Remains On PC/AC with RR 12, IP:22, IT:1.20, PEEP;10 and FIo2 90%. Afebrile. 03/13 Patient is sedated with Diprivan and Fentanyl and intubated. On PC/AC with PEEP:12, FIO2 80%. Tmax 101.7 Remains on Dobutamine and Flolan. 03/14 Patient remains sedated and intubated. On PC/AC with PEEP:12 and FIO2 100% . T: 101.5 last night. On Flolan off Dobutamine. 03/15 No acute events overnight. Sedated with Diprivan and Fentanyl. On PC/AC with PEEP: 12, FIO2 down to 70%. Tmax 101.6. On Flolan nebs. 03/16 Patient remains sedated and intubated On PC/AC with decrease in FIO2 requirements down to 65% FIO2 with PEEP: 12. Tmax 101.4. On Heparin drip. 03/17 Patient remains sedated and intubated. T: 99.7, heparin drip turned off as patient had bloody secretions with suctioning and Hemoccult was positive. 03/18 No acute events overnight. Remains sedated and intubated. Tmax 102.8. Off heparin drip patient has minimal bloody secretions. 03/19 Patient remains sedated with Diprivan and Fentanyl intubated. Afebrile. 03/20 No acute events overnight. Sedated and intubated. Tmax : 100.8. NPO for EGD and PEG tube placement today. 03/21 remains sedated, orally intubated on mechanical ventilation. Flolan inhaled stopped today. Switched to PRVC mode mechanical ventilation from PC/AC. 03/22:Remains sedated, orally intubated on mechanical ventilation. Deep decreased to +10, FiO2 55%. 03/23: Arouses on lightening sedation, moving all 4 extremities. Orally intubated on mechanical ventilation. On PEEP of +10, FiO2 50% 03/24: Sedated, arousable, orally intubated on mechanical ventilation. PEEP +10 , FiO2 60% today. 03/25: Remains sedated, orally intubated on mechanical ventilation. PEEP of +10 , FiO2 50%. Minimal blood-tinged respiratory secretions noted. Heparin drip stopped 03/25 03/26: Remains sedated, orally intubated on mechanical ventilation. PEEP remains at +10, FiO2 60%. Discussed with Dr. Bal, doubt patient can tolerate bronchoscopies hence he is planning to do tracheostomy in the OR. 03/27: Sedated, arousable, remains orally intubated on mechanical ventilation. Awaiting tracheostomy in the OR which is scheduled for tomorrow. 03/28: Sedated, arousable, remains orally intubated on mechanical ventilation at the time of my evaluation in the morning. Subsequently taken for tracheostomy 03/29: Afebrile. Patient remains sedated and intubated. He is status post tracheostomy. PEEP remains at 10,FIO2 60%. Objective Vital Signs Date Time Temp Pulse Resp B/P Pulse Ox O2 Delivery O2 Flow Rate FiO2 03/29/17 13:55 97 50 03/29/17 12:00 89 03/29/17 12:00 12 106/58 03/29/17 08:00 98.4 Intake and Output 03/28/17 03/28/17 03/29/17 08:00 16:00 00:00 Intake Total 338 ml 250 ml 258 ml Output Total 300 ml 850 ml 450 ml Balance 38 ml -600 ml -192 ml Result Diagram: 03/27/17 0610 03/27/17 0610 Imaging Last Impressions Chest X-Ray 03/18/17 0000 Signed Impressions: Service Date/Time: Saturday, March 18, 2017 08:43 - CONCLUSION: Left lower lobe consolidation/atelectasis and likely some effusion. Nick Menchaca MD Upper Extremity Ultrasound 03/14/17 0000 Signed Impressions: Service Date/Time: Tuesday, March 14, 2017 18:49 - CONCLUSION: 1. Thrombus throughout the cephalic veins bilaterally. These are superficial venous structures. 2. Questionable minimal thrombus within the left subclavian vein. Garrick Hinton Jr., MD CT Angiography 03/02/17 1206 Signed Impressions: Service Date/Time: Thursday, March 02, 2017 13:46 - CONCLUSION: 1. No pulmonary embolus identified. 2. Small bilateral effusions with significant dependent atelectasis bilaterally. Riley Bob MD Lower Extremity Ultrasound 02/27/17 0000 Signed Impressions: Service Date/Time: Monday, February 27, 2017 08:31 - CONCLUSION: Normal examination. Nick Farrell MD Abdomen X-Ray 02/24/17 0000 Signed Impressions: Service Date/Time: Friday, February 24, 2017 10:43 - CONCLUSION: 1. Nasogastric tube just across the GE junction. 2. Minimal nonspecific bowel gas dilatation. Artur Bob MD FACR Objective Remarks BP 152/65 P 72 O2 sat 95% GENERAL: Patient is 66 yo obese male intubated and sedated SKIN: Warm and dry. HEAD: Normocephalic. EYES: No scleral icterus. No injection or drainage. NECK: Supple, trachea midline. No JVD or lymphadenopathy. CARDIOVASCULAR:Tachycardic without murmurs, gallops, or rubs. RESPIRATORY: On mechanical ventilation, orally intubated, Breath sounds equal bilaterally. Few Coarse BS GASTROINTESTINAL: Abdomen soft, non-tender, nondistended. OGT, tube feedings infusing MUSCULOSKELETAL: 2+ bilateral edema in B/L upper extremities. Neuro: Sedated, arousable, orally intubated, moves all 4 extremities on lightening sedation. Urinary Catheter: Yes Date of Removal: Mar 04, 2017 Line: Central Venous Catheter Side: Right A/P Assessment and Plan 1. Acute hypercapnic and hypoxemic respiratory failure. 2. COPD exacerbation. 3. Acute renal failure. 4. Hypernatremia 5. Obstructive sleep apnea and morbid obesity. 6. Ischemic dilated Cardiomyopathy. S/P AICD 03/2015 7. History of coronary artery disease. 8. Gastroesophageal reflux disease. 9. Hypertension. 10. Hyperlipidemia. 11 Pulm edema 12. Acute on chronic systolic and diastolic CHF 13. Pulmonary hypertension 14. Bacteremia Plan: Neuro: On Diprivan and Fentanyl infusion for sedation. Daily sedation vacation when appropriate. Monitor neuro status CV: Monitor HR and BP keep MAP>65mmHg. On Lopressor 12.5mg BID for rate control. On aspirin 325 milligrams p.o. daily and Plavix 75 mg p.o. daily - holding starting 03/22 in anticipation of tracheostomy. Prinivil 5mg daily 01/2017 Echo showed EF 40-45%, nl LV diastolic function, No RWMA Cardiology following-Dr. Cole. Pulm: PRVC mode mechanical ventilation: rate 12 tidal volume 600 I time 1.1 second PEEP 10 FiO2 60% Continue with vent support. Tracheostomy in OR by Dr. Kirkland on 03/28 evening Bronchodilators every 4 hours, Solu-Medrol 40 mg IV BID. Pulm-Dr. Lashell Padron CXR: LLL consolidation/Atelectasis CTA chest 03/02 showed no PE, small pleural effusions Flolan inhaled nebulizer treatment stopped 03/21. Heparin GTT held on 03/25 in view of blood-tinged respiratory secretions 03/28 tracheostomy- Dr. Matthew : Monitor renal function Is and Os and avoid nephrotoxins. Electrolytes replacement per protocol. Lasix 40mg daily Free water 200 ml Q8 on 03/22, monitor sodium level. GI: On Protonix 40 mg IV daily for GI prophylaxis. TF(Glucerna 1.5 @45ml/hr. S/p PEG tube placement 03/20 Senna, Colace for bowel regimen, 02/24 KUB abdomen: Minimal non-specific bowel gas dilatation GI is following for anemia and positive Hemoccult. ID: ID following. Stopped antibiotics on 03/23 (Vancomycin, Levaquin) monitor for signs of infections ( Fever, WBC) 03/16 C-diff PCR negative 03/14: BC: NGTD 03/14: Normal resp tiffany, urine cx: No growth 03/09 Repeat Bld cultures-staph Epi, coag negative staph- likely contaminant 03/09 Repeat sputum culture-staph aureus Heme: Monitor CBC. Heparin GTT held on 03/25 Endo: SSI with Accu-Chek q. 6-hour for glycemic control. GI prophylaxis with Protonix 40 mg BID and DVT prophylaxis with SCDs, Doppler US UE: 03/14-Thrombus throughout the cephalic veins bilaterally. ? minimal thrombus within the left subclavian vein. Was off Heparin drip as patient had bloody secretions with suctioning ( resolved ) and positive Hemoccult. Heparin resumed (cleared by GI) and subsequently stopped on 03/25 due to blood tinged respiratory secretions. Doppler US LE No DVT on 02/27 Dispo: Discussed patient with [employer]. Palliative care is following. Discussed with patient's current medical status. This patient remains critically ill with one or more organ systems which are or may become a threat to life. I have spent in excess of 33 minutes discontinuously in the care and management of this patient. This time is exclusive of procedures, and includes, but is not limited to, evaluation of the patient, review of the medical record, discussions with family, consultants, nursing staff, or respiratory therapy, and documentation in the medical record. Physician Rolanda Maria MD March 29, 2017 17:16
--- NOTE | 2017-03-29 17:37 | HHI.PR ---
Subjective Remarks Sedated and on the vent at 50 % FIO2, and PEEP 10 cm. Trach is in. Output was OK. No fever. Objective Vital Signs Date Time Temp Pulse Resp B/P Pulse Ox O2 Delivery O2 Flow Rate FiO2 03/29/17 13:55 97 50 03/29/17 12:00 89 03/29/17 12:00 50 03/29/17 12:00 70 12 106/58 97 03/29/17 10:00 89 03/29/17 10:00 70 12 106/58 97 03/29/17 09:45 71 12 102/59 97 03/29/17 09:30 70 12 107/62 98 03/29/17 09:15 70 12 110/64 98 03/29/17 09:02 97 50 03/29/17 09:00 71 12 105/60 97 03/29/17 08:45 71 12 105/62 97 03/29/17 08:30 70 12 97/57 95 03/29/17 08:15 71 12 104/56 95 03/29/17 08:01 98 03/29/17 08:01 72 12 109/53 94 03/29/17 08:00 98.4 73 12 157/86 98 03/29/17 08:00 73 12 94 03/29/17 08:00 50 03/29/17 07:51 98 03/29/17 06:00 98 03/29/17 04:45 97 50 03/29/17 04:00 93 03/29/17 04:00 98.4 93 12 126/60 98 03/29/17 04:00 50 03/29/17 02:00 103 03/29/17 00:30 97 50 03/29/17 00:00 50 03/29/17 00:00 98.4 70 14 116/55 99 03/29/17 00:00 112 03/28/17 22:00 70 03/28/17 20:01 94 50 03/28/17 20:00 70 03/28/17 20:00 50 03/28/17 20:00 98.0 70 12 95/50 70 I/O 03/28/17 03/28/17 03/28/17 03/29/17 03/29/17 03/29/17 07:00 15:00 23:00 07:00 15:00 23:00 Intake Total 338 ml 250 ml 258 ml 214 ml Output Total 300 ml 850 ml 450 ml 200 ml Balance 38 ml -600 ml -192 ml 14 ml IV Total 338 ml 250 ml 258 ml 214 ml Output Urine Total 300 ml 850 ml 450 ml 200 ml Result Diagram: 03/27/1760903/27/17609 Objective Remarks PHYSICAL EXAMINATION GENERAL: This moderately obese elderly man is sedated, assisting the ventilator. HEENT: Head normocephalic. Pupils are reactive. Throat has some secretions. NECK: No bruits or thyroid enlargement. CHEST: Equal movements with diminished breath sounds at the bases with occ basilar crackles. HEART: The heart sounds are regular, S1 and S2. No murmur. ABDOMEN: Soft, obese, without masses. No organomegaly. Bowel sounds are faint. EXTREMITIES: No Edema with decreased pulses . NEUROLOGIC: Reflexes 1 +. Muscle wasting. SKIN: Warm and dry. Assessment and Plan Assessment and Plan IMPRESSION 1. Hypercapnic respiratory failure and hypoxemic respiratory failure. 2. COPD with chronic bronchitis and acute exacerbation. 3. Congestive heart failure. 4. Cardiomyopathy with ischemic heart disease. 5. Hypertension and hyperlipidemia. 6. Possible obstructive sleep apnea. 7. pulmonary HTN. Plan : 1. Wean O2 to keep sat >92. 2. CPAP trial in am. 3. BMP,CBC. 4. Tube feeds at 50 CC. 5. Cont daily Lasix 40 mg. 6. Reduce diprivan /Fentanyl. 7. prednisone 15 mg daily. Bri Stout MD March 29, 2017 17:37
[2017-03-29] MEDS: ATORVASTATIN 40 MG TAB PO SCH (20:13)
[2017-03-30] VITALS (44 sets, daily range): BP systolic 101–163; BP diastolic 53–91; PULSE 22–151; RESP 0–36; TEMP 98–99.4; O2SAT 92–99
[2017-03-30] MEDS: PROPOFOL 1000 MG/100 ML INJ 100 ML IV SCH (03:58)
[2017-03-30] MEDS: CHLORHEXIDINE GLUCONATE 2 % 1 PACK (2 CLOTHS) TOP SCH (04:00)
--- NOTE | 2017-03-30 04:46 | RADRPT ---
EXAM DATE/TIME: 03/30/2017 03:35 [facility] COMPARISON: CHEST SINGLE AP, March 27, 2017, 3:50. INDICATIONS : Evaluate for respiratory disease. MEDICAL HISTORY : Chronic obstructive pulmonary disease. Myocardial infarction. SURGICAL HISTORY : Pacemaker. CABG. ENCOUNTER: Subsequent ACUITY: 1 month PAIN SCORE: Non-responsive. LOCATION: chest FINDINGS: A single view of the chest demonstrates mild cardiomegaly with interstitial edema. Tracheostomy tube with tip at the thoracic inlet. Status post CABG. Left sided defibrillator unchanged. Osseous struct ures are intact. CONCLUSION: Cardiomegaly with interstitial edema. Status post CABG. Fernando Mack MD on March 30, 2017 at 4:43 Board Certified Radiologist. This report was verified electronically.
[2017-03-30 04:51] LABS: HEMATOCRIT 28.4 % (39.0-51.0); MEAN CELL VOLUME 89.3 FL (80.0-100.0); MEAN CORPUSCULAR HEMOGLOBIN 30.1 PG (27.0-34.0); MEAN CORPUSCULAR HGB CONC 33.7 % (32.0-36.0); PLATELET COUNT 108 TH/MM3 (150-450); RED BLOOD COUNT 3.18 MIL/MM3 (4.50-5.90); RED CELL DISTRIBUTION WIDTH 17.2 % (11.6-17.2); REVIEW FLAG FINAL; WHITE BLOOD COUNT 10.8 TH/MM3 (4.0-11.0)
[2017-03-30 05:14] LABS: BICARBONATE 37.1 MEQ/L (21.0-32.0); MAGNESIUM 2.3 MG/DL (1.5-2.5); POTASSIUM 3.1 MEQ/L (3.5-5.1)
[2017-03-30] MEDS: FREE WATER G-TUBE SCH ×3 (06:00→22:00)
[2017-03-30] MEDS: INSULIN NovoLIN REGULAR SUPPLEMENTAL SCALE SQ SCH ×4 (06:00→23:00)
[2017-03-30] MEDS: METOPROLOL TARTRATE 25 MG TAB PO SCH ×2 (09:00→19:54)
[2017-03-30] MEDS: DOCUSATE SODIUM 100 MG/10 ML UDC PO SCH ×2 (10:51→19:54)
[2017-03-30] MEDS: PANTOPRAZOLE SODIUM 40 MG VIAL IV SCH (10:51)
[2017-03-30] MEDS: methylPREDNISolone SOD SUCC 40 MG/1 ML VIAL IV PUSH SCH ×2 (10:51→19:55)
[2017-03-30] MEDS: SENNOSIDES SYRUP 8.8 MG/5 ML CUP PO SCH (10:51)
[2017-03-30] MEDS: FUROSEMIDE 40 MG/4 ML VIAL IV PUSH SCH (10:51)
[2017-03-30] MEDS: LISINOPRIL 5 MG TAB PO SCH (10:52)
[2017-03-30] MEDS: CHLORHEXIDINE 0.12% (ORAL KIT) 15 ML CUP MT SCH ×2 (10:52→20:00)
[2017-03-30] MEDS: POTASSIUM CHLOR 20 MEQ PREMIX 100 ML IV PRN ×4 (10:55→17:31)
[2017-03-30] MEDS: fentaNYL DRIP 250 ML IV SCH (12:54)
--- NOTE | 2017-03-30 13:33 | HHI.CCPN ---
Subjective Remarks/Hospital Course The patient is a 66-year-old male with past medical history of COPD, cardiomyopathy, hypertension, gastroesophageal reflux disease, hyperlipidemia and coronary artery disease. The patient presented to [facility] ED with a 2-week history of progressive worsening shortness of breath. On arrival to the ED he was initially placed on a non-rebreather mask and ABG was performed which showed acute hypercapnic respiratory failure with a pH of 7.14, CO2 121, pAO2 141, bicarb 40, sats 93%. His laboratory data significant for hyperkalemia with potassium level 6.0 and acute renal failure with a BUN of 43 and creatinine 2.07 respectively. The chest x-ray showed cardiomegaly and findings of vascular congestion without overt failure. In the ED the patient was intubated with etomidate and rocuronium and placed on full mechanical ventilation. In addition, he is scheduled to receive 10 units IV regular insulin, 1 amp of D50 and calcium gluconate for hyperkalemia. He received cefepime, azithromycin, Solu-Medrol 125 milligrams IV push and bronchodilator treatment. When seen the patient is on Diprivan infusion for sedation and full mechanical ventilation. Per the patient is not on any oxygen at home and he occasionally smokes cigarettes. 02/24 Patient is intubated and sedated with Diprivan and Fentanyl. Switched to PC/ AC with RR 12, IP:24, IT:1.06, PEEP: 8 and FIO2 100%. CXR this morning showed interval development of bilateral perihilar and lower lung zone airspace opacity he was given Lasix 60mg total overnight. 02/25 Patient remains sedated and intubated with Diprivan and Fentanyl. Afebrile.On PC/AC with RR 12, IP:22, IT:1.10, PEEP:10, FIO2 70%. Afebrile. Renal function worse today with Cr: 1.90 from 1.72 UO: 1150ml in 24 hrs 02/26 No acute events overnight. Sedated with Fentanyl and Diprivan and intubated. Afebrile. His O2 requirements is less now on PC/AC with IP:22, IT: 1.1 with PEEP: 10 and FIO2 55%. Renal function improving with Cr: 1.42 today from 1.90. Tolerating tube feeds. 02/27 Patient remains sedated with Diprivan and Fentanyl infusion and intubated. Afebrile. 02/28: Remains sedated, orally intubated on mechanical ventilation. Being diuresed with Bumex. Tolerating tube feeds. 03/01: Remains sedated, orally intubated on mechanical ventilation. Being diabetes. Remains on PEEP of 10 and FiO2 60% 03/02 Patient remains sedated with Diprivan and Fentanyl and intubated. On PC/AC with PEEP: 10 and FIO2 80% overnight and sats 93-94%. Afebrile. 03/03: The patient remains on high respiratory requirements PEEP of 10, and FiO2 70%. 03/04: Tmax 99.9. Overnight the patient was noted to have desaturations the patient received a bolus of midazolam and fentanyl for ventilator dyssynchrony. The patient was redosed with Diamox with approximately 2.5 L diuresis in the last 12 hours. The patient continues on an FiO2 of 70% with PEEP of 10 to maintain an O2 sat of 90%. 03/05: Afebrile. Patient's FiO2 remains at 60% to maintain O2sat ranging in 92% . Future plans for tracheostomy discussed with when ventilator requirements are decreased. Patient currently is on a PEEP of 10. Patient receiving multiple doses of diuretics chest x-ray still showing increased vascular congestion. Cardiology following metalazone added to medication regimen per cardiology for diuresis. 03/06: Patient's O2 requirements were increased overnight to FiO2 of 90%. The patient's FiO2 has been decreased now currently to 70% O2 sat is 90% ABG is pending. The patient's diuresis effective, 1 kg weight loss in 24 hours. 03/07: The patient continues to have effective diuresis. The patient's O2 requirements currently FiO2 is 70% to maintain a sat of 90-91%. Discussion with Ms. London yesterday, she would like to discuss with palliative team goals of care. Palliative care consult initiated. 03/08: The patient was less responsive to diuretics today, positive weight balance last 24 hours. The patient was placed on a Lasix infusion, noted occasional PVCs on telemetry. Patient potassium repletion ongoing, schedule potassium PO intake increased to 50 mEq twice a day. Free water flushes placed on hold, was sodium level 145 will continue to monitor. Chest x-ray shows slight improvement. Continued management of ventilator settings ARDS protocol, maintaining PaO2 60 or greater and adjusting vent settings based on PaO2. Sedation vacation attempted today by MEDICAL CLAIMS MANAGER, GCS 11T. Noted WBC elevation today ID consulted. 03/09: Today the patient was noted to have increasing FiO2 requirements with a PaO2 of 61. FiO2 was increased to 100%, PEEP was gradually increased to 12, then 14. The patient subsequently became hypotensive, likely due to increasing PEEP, but chest x-ray also obtained to rule out pneumothorax which was clear. The patient subsequently was laced on phenylephrine low-dose 20 mcgs which was eventually weaned off. The patient was placed on PEEP at 7 and FiO2 of 100%, sedation was weaned to lower dose. Palliative care also discussed with goals of care and the patient was made DNR. 03/10 noted creatinine elevation last night, Lasix discontinued. Dobutamine initiated per cardiology this morning. The patient continues to have high requirements on a PEEP of 8 and FiO2 of 100% his PaO2 49.2. PEEP has been increased plan to initiate Flolan. 03/11: Tmax 100.5. FRANK resolved with dobutamine infusion, heart rate 110. Microbiology report bacteremia gram-positive cocci and sputum. Patient currently on Diflucan. Will begin Linezolid in the setting of recent FRANK and oliguria, and await further recommendations from infectious disease performance test consultant. Respiratory status deteriorating. The patient was placed on Flolan last night PaO2 67. Patient remains on a PEEP of 10, unable to advance secondary to hypotension. 03/12 Patient remains sedated with Diprivan, Fentanyl and intubated. On Dobutamine 2.5 mics and Flolan. Remains On PC/AC with RR 12, IP:22, IT:1.20, PEEP;10 and FIo2 90%. Afebrile. 03/13 Patient is sedated with Diprivan and Fentanyl and intubated. On PC/AC with PEEP:12, FIO2 80%. Tmax 101.7 Remains on Dobutamine and Flolan. 03/14 Patient remains sedated and intubated. On PC/AC with PEEP:12 and FIO2 100% . T: 101.5 last night. On Flolan off Dobutamine. 03/15 No acute events overnight. Sedated with Diprivan and Fentanyl. On PC/AC with PEEP: 12, FIO2 down to 70%. Tmax 101.6. On Flolan nebs. 03/16 Patient remains sedated and intubated On PC/AC with decrease in FIO2 requirements down to 65% FIO2 with PEEP: 12. Tmax 101.4. On Heparin drip. 03/17 Patient remains sedated and intubated. T: 99.7, heparin drip turned off as patient had bloody secretions with suctioning and Hemoccult was positive. 03/18 No acute events overnight. Remains sedated and intubated. Tmax 102.8. Off heparin drip patient has minimal bloody secretions. 03/19 Patient remains sedated with Diprivan and Fentanyl intubated. Afebrile. 03/20 No acute events overnight. Sedated and intubated. Tmax : 100.8. NPO for EGD and PEG tube placement today. 03/21 remains sedated, orally intubated on mechanical ventilation. Flolan inhaled stopped today. Switched to PRVC mode mechanical ventilation from PC/AC. 03/22:Remains sedated, orally intubated on mechanical ventilation. Deep decreased to +10, FiO2 55%. 03/23: Arouses on lightening sedation, moving all 4 extremities. Orally intubated on mechanical ventilation. On PEEP of +10, FiO2 50% 03/24: Sedated, arousable, orally intubated on mechanical ventilation. PEEP +10 , FiO2 60% today. 03/25: Remains sedated, orally intubated on mechanical ventilation. PEEP of +10 , FiO2 50%. Minimal blood-tinged respiratory secretions noted. Heparin drip stopped 03/25 03/26: Remains sedated, orally intubated on mechanical ventilation. PEEP remains at +10, FiO2 60%. Discussed with Dr. Bal, doubt patient can tolerate bronchoscopies hence he is planning to do tracheostomy in the OR. 03/27: Sedated, arousable, remains orally intubated on mechanical ventilation. Awaiting tracheostomy in the OR which is scheduled for tomorrow. 03/28: Sedated, arousable, remains orally intubated on mechanical ventilation at the time of my evaluation in the morning. Subsequently taken for tracheostomy 03/29: Afebrile. Patient remains sedated and intubated. He is status post tracheostomy. PEEP remains at 10,FIO2 60%. 03/30 Sedated, tracheostomy postop day 2, patient continues to have high ventilatory requirements PEEP of 10, and able to perform CPAP trials. Previously patient was noted to be bleeding from endotracheal to prior to tracheostomy. Will initiate heparin subcutaneous DVT prophylaxis, and closely monitor before beginning full anticoagulation of heparin. Objective Vital Signs Date Time Temp Pulse Resp B/P Pulse Ox O2 Delivery O2 Flow Rate FiO2 03/30/17 12:26 93 50 03/30/17 06:00 69 03/30/17 04:00 99.4 12 135/60 Intake and Output 03/29/17 03/29/17 03/30/17 08:00 16:00 00:00 Intake Total 214 ml 250 ml 1094 ml Output Total 200 ml 1050 ml 300 ml Balance 14 ml -800 ml 794 ml Result Diagram: 03/30/17 0430 03/30/17 0430 Imaging Last Impressions Chest X-Ray 03/30/17 0600 Signed Impressions: Service Date/Time: Thursday, March 30, 2017 03:35 - CONCLUSION: Cardiomegaly with interstitial edema. Status post CABG. Fernando Mack MD Upper Extremity Ultrasound 03/14/17 0000 Signed Impressions: Service Date/Time: Tuesday, March 14, 2017 18:49 - CONCLUSION: 1. Thrombus throughout the cephalic veins bilaterally. These are superficial venous structures. 2. Questionable minimal thrombus within the left subclavian vein. Garrick Hinton Jr., MD CT Angiography 03/02/17 1206 Signed Impressions: Service Date/Time: Thursday, March 02, 2017 13:46 - CONCLUSION: 1. No pulmonary embolus identified. 2. Small bilateral effusions with significant dependent atelectasis bilaterally. Riley Bob MD Lower Extremity Ultrasound 02/27/17 0000 Signed Impressions: Service Date/Time: Monday, February 27, 2017 08:31 - CONCLUSION: Normal examination. Nick Farrell MD Abdomen X-Ray 02/24/17 0000 Signed Impressions: Service Date/Time: Friday, February 24, 2017 10:43 - CONCLUSION: 1. Nasogastric tube just across the GE junction. 2. Minimal nonspecific bowel gas dilatation. Artur Bob MD FACR Last Impressions Chest X-Ray 03/18/17 0000 Signed Impressions: Service Date/Time: Saturday, March 18, 2017 08:43 - CONCLUSION: Left lower lobe consolidation/atelectasis and likely some effusion. Nick Menchaca MD Upper Extremity Ultrasound 03/14/17 0000 Signed Impressions: Service Date/Time: Tuesday, March 14, 2017 18:49 - CONCLUSION: 1. Thrombus throughout the cephalic veins bilaterally. These are superficial venous structures. 2. Questionable minimal thrombus within the left subclavian vein. Garrick Hinton Jr., MD CT Angiography 03/02/17 1206 Signed Impressions: Service Date/Time: Thursday, March 02, 2017 13:46 - CONCLUSION: 1. No pulmonary embolus identified. 2. Small bilateral effusions with significant dependent atelectasis bilaterally. Riley Bob MD Lower Extremity Ultrasound 02/27/17 0000 Signed Impressions: Service Date/Time: Monday, February 27, 2017 08:31 - CONCLUSION: Normal examination. Nick Farrell MD Abdomen X-Ray 02/24/17 0000 Signed Impressions: Service Date/Time: Friday, February 24, 2017 10:43 - CONCLUSION: 1. Nasogastric tube just across the GE junction. 2. Minimal nonspecific bowel gas dilatation. Artur Bob MD FACR Objective Remarks BP 151/63 P 76 O2 sat 95% GENERAL: Patient is 66 yo obese male sedated. SKIN: Warm and dry. HEAD: Normocephalic. EYES: No scleral icterus. No injection or drainage. NECK: Supple, trachea midline. No JVD or lymphadenopathy. Tracheostomy in situ no erythema or drainage noted CARDIOVASCULAR:Tachycardic without murmurs, gallops, or rubs. RESPIRATORY: On mechanical ventilation, orally intubated, Breath sounds equal bilaterally. Few Coarse BS GASTROINTESTINAL: Abdomen soft, non-tender, nondistended. OGT, tube feedings infusing MUSCULOSKELETAL: 2+ bilateral edema in B/L upper extremities. Neuro: Sedated, arousable, moves all 4 extremities on lightening sedation. Urinary Catheter: Yes [employer] insert reason: ICU Pt Getting Diuretics Date of Removal: Mar 04, 2017 Line: Central Venous Catheter Side: Right A/P Assessment and Plan 1. Acute hypercapnic and hypoxemic respiratory failure. 2. COPD exacerbation. 3. Acute renal failure. 4. Hypernatremia 5. Obstructive sleep apnea and morbid obesity. 6. Ischemic dilated Cardiomyopathy. S/P AICD 03/2015 7. History of coronary artery disease. 8. Gastroesophageal reflux disease. 9. Hypertension. 10. Hyperlipidemia. 11 Pulm edema 12. Acute on chronic systolic and diastolic CHF 13. Pulmonary hypertension 14. Bacteremia Plan: Neuro: On Diprivan and Fentanyl infusion for sedation. Daily sedation vacation when clinically indicated. Monitor neuro status CV: Monitor HR and BP keep MAP>65mmHg. On Lopressor 12.5mg BID for rate control. On aspirin 325 milligrams p.o. daily and Plavix 75 mg p.o. daily - holding starting 03/22 in anticipation of tracheostomy. Prinivil 5mg daily 01/2017 Echo showed EF 40-45%, nl LV diastolic function, No RWMA Cardiology following-Dr. Cole. Pulm: PRVC mode mechanical ventilation: rate 12 tidal volume 600 I time 1.1 second PEEP 10 FiO2 60% Continue with vent support. Tracheostomy in OR by Dr. Kirkland on 03/28 evening Bronchodilators every 4 hours, Solu-Medrol 40 mg IV BID. Pulm-Dr. Lashell Padron CXR: LLL consolidation/Atelectasis CTA chest 03/02 showed no PE, small pleural effusions Flolan inhaled nebulizer treatment stopped 03/21. Heparin GTT held on 03/25 in view of blood-tinged respiratory secretions, the patient is 2 days S/P Will begin subcutaneous heparin today, plans for initiation of heparin infusion if no bleeding occurrence 03/28 tracheostomy- Dr. Matthew : Monitor renal function Is and Os and avoid nephrotoxins. Electrolytes replacement per protocol. Lasix 40mg daily Decrease Free water 100 ml Q8 on 03/22, monitor sodium level, currently 142 GI: On Protonix 40 mg IV daily for GI prophylaxis. TF(Glucerna 1.5 @45ml/hr. S/p PEG tube placement 03/20 Senna, Colace for bowel regimen, 02/24 KUB abdomen: Minimal non-specific bowel gas dilatation GI is following for anemia and positive Hemoccult. ID: ID following. Stopped antibiotics on 03/23 (Vancomycin, Levaquin) monitor for signs of infections ( Fever, WBC) 03/16 C-diff PCR negative 03/14: BC: NGTD 03/14: Normal resp tiffany, urine cx: No growth 03/09 Repeat Bld cultures-staph Epi, coag negative staph- likely contaminant 03/09 Repeat sputum culture-staph aureus Heme: Monitor CBC. Heparin GTT held on 03/25 Endo: SSI with Accu-Chek q. 6-hour for glycemic control. GI prophylaxis with Protonix 40 mg BID and DVT prophylaxis with SCDs, Doppler US UE: 03/14-Thrombus throughout the cephalic veins bilaterally. ? minimal thrombus within the left subclavian vein. Was off Heparin drip as patient had bloody secretions with suctioning ( resolved ) and positive Hemoccult. Heparin resumed (cleared by GI) and subsequently stopped on 03/25 due to blood tinged respiratory secretions. Doppler US LE No DVT on 02/27 Dispo: Discussed patient with MEDICAL CLAIMS MANAGER. Palliative care is following. This patient remains critically ill with one or more organ systems which are or may become a threat to life. I have spent in excess of 35 minutes discontinuously in the care and management of this patient. This time is exclusive of procedures, and includes, but is not limited to, evaluation of the patient, review of the medical record, discussions with family, consultants, nursing staff, or respiratory therapy, and documentation in the medical record. Physician Rolanda Maria MD March 30, 2017 13:33
--- NOTE | 2017-03-30 14:30 | HHI.HCPN ---
Reason for visit a. To assist with evaluation and management of symptoms including: dyspnea, pain b. To assist medical decision maker(s) with: better understanding of current medical conditions; weighing benefits/burdens of medical treatment options; making medical treatment decisions. . (Sapphire Chen) Subjective/Interval History Palliative care to follow-up for further clarifications of goals of care and emotional support. Patient status 2 days post tracheostomy, remains on high vent settings. Currently on 50% FiO2 and PEEP of 10. Unable to proceed with CPAP trials at this time. Patient remains sedated on propofol and fentanyl. He is awake, eyes open and intermittently following some commands. Attempting to communicate by mouthing some words, however, not making much sense at this time. Patient appears calm with no signs of pain or discomfort. Patient afebrile, tachycardic with heart rates in the low 110s. Chest x-ray today showing cardiomegaly with interstitial edema. Laboratory today showing WBC 10.8, Hgb 9.6, platelet count 108. Sodium 142, potassium 3.1, BUN/ creatinine 16/0.39. Albumin 2.1. Hx of severe COPD and CAD with cardiomyopathy status post PPM/AICD with an EF of 20%. Case discussed with Dr. Licona and bedside RN. . Family/friend interactions Met with patient's at bedside. Medical update provided. Goal of treatment at this time is to allow the weekend with hopes of clinical improvement. Palliative care to meet with patient's early next week for further clarifications of goals of care. likely to transition patient to comfort-directed care should his clinical condition does not improve/inability to wean off vent support or continues to decline. . (Sapphire Chen) Advance Directives Living Will: Never completed Health Care Surrogate: Never completed Durable Power of Automobile Mechanic Apprentice: Never completed (Sapphire Chen) Advance Directive Specifics Health Care Surrogate(s): Brooke Doran - [phone] (home), or [phone] (cellvoicemail not set up) (Sapphire Chen) Objective Vital Signs Date Time Temp Pulse Resp B/P Pulse Ox O2 Delivery O2 Flow Rate FiO2 03/30/17 12:26 93 50 03/30/17 08:09 99 50 03/30/17 06:00 69 03/30/17 04:36 96 50 03/30/17 04:00 99.4 121 12 135/60 96 03/30/17 04:00 69 03/30/17 04:00 50 03/30/17 02:00 69 03/30/17 01:13 96 50 03/30/17 00:00 50 03/30/17 00:00 99.4 121 12 135/60 96 03/30/17 00:00 115 03/29/17 22:19 98 50 03/29/17 22:00 84 03/29/17 20:00 99.2 115 24 141/74 95 03/29/17 20:00 115 03/29/17 20:00 50 03/29/17 19:49 96 50 03/29/17 18:00 89 03/29/17 17:59 99 50 03/29/17 16:00 89 03/29/17 16:00 99.0 70 12 106/58 97 03/29/17 16:00 50 Intake & Output 03/30/17 03/30/17 07:00 19:00 Intake Total 1400 ml Output Total 530 ml Balance 870 ml IV Total 977 ml Tube Feeding 323 ml Other 100 ml Output Urine Total 530 ml Stool Total 0 ml Physical Exam CONSTITUTIONAL/GENERAL: This is an adequately nourished patient, awake, tracking , intermittently restless. TUBES/LINES/DRAINS:central line, PEG tube, tracheostomy, cabrera catheter, SKIN: No jaundice, rashes, or lesions. Skin temperature appropriate. Not diaphoretic. HEAD: Atraumatic. Normocephalic. EYES: Pupils equal and round and reactive. No scleral icterus. No injection or drainage. ENT: Tracheostomy in place. NECK: Trachea midline. Supple, CARDIOVASCULAR: No murmurs, gallops, or rubs. Peripheral pulses symmetric. Edema to upper extremities. RESPIRATORY/CHEST: Symmetric, unlabored respirations. Coarse breath sounds bilaterally. Symmetric air movement. Remains on vent support via trach. GASTROINTESTINAL: Abdomen soft, round. Positive bowel sounds. GENITOURINARY: Without palpable bladder distension. catheter in place. MUSCULOSKELETAL: Edema in upper extremities. Extremities without clubbing, cyanosis. NEUROLOGICAL: Eyes open, tracking. Intermittently following commands. PSYCHIATRIC: Calm. . (Chen,Sapphire Daja KNITTING DEMONSTRATOR) Diagnostic Tests Laboratory Laboratory Tests Test 03/28/17 03/30/17 04:50 04:30 Blood Gas Puncture Site LT RADIAL Blood Gas Patient Temperature 98.6 Blood Gas HCO3 37 mmol/L (22-26) Blood Gas Base Excess 12.6 mmol/L (-2-2) Blood Gas Oxygen Saturation 92 % (90-100) Arterial Blood pH 7.50 (7.380-7.420) Arterial Blood Partial 47 mmHg (38-42) Pressure CO2 Arterial Blood Partial 75 mmHg Pressure O2 (61-120) Arterial Blood Oxygen Content 12.0 Vol % (12.0-20.0) Arterial Blood 1.6 % (0-4) Carboxyhemoglobin Arterial Blood Methemoglobin 1.5 % (0-2) Blood Gas Hemoglobin 9.2 G/DL (12.0-16.0) Oxygen Delivery Device VENTILATOR Blood Gas Ventilator Setting PRVC/AC Blood Gas Inspired Oxygen 55 % White Blood Count 10.8 TH/MM3 (4.0-11.0) Red Blood Count 3.18 MIL/MM3 (4.50-5.90) Hemoglobin 9.6 GM/DL (13.0-17.0) Hematocrit 28.4 % (39.0-51.0) Mean Corpuscular Volume 89.3 FL (80.0-100.0) Mean Corpuscular Hemoglobin 30.1 PG (27.0-34.0) Mean Corpuscular Hemoglobin 33.7 % Concent (32.0-36.0) Red Cell Distribution Width 17.2 % (11.6-17.2) Platelet Count 108 TH/MM3 (150-450) Mean Platelet Volume 8.5 FL (7.0-11.0) Sodium Level 142 MEQ/L (136-145) Potassium Level 3.1 MEQ/L (3.5-5.1) Chloride Level 97 MEQ/L (98-107) Carbon Dioxide Level 37.1 MEQ/L (21.0-32.0) Anion Gap 8 MEQ/L (5-15) Blood Urea Nitrogen 16 MG/DL (7-18) Creatinine 0.39 MG/DL (0.60-1.30) Estimat Glomerular Filtration 220 ML/MIN Rate (>89) Random Glucose 100 MG/DL (74-106) Calcium Level 8.7 MG/DL (8.5-10.1) Phosphorus Level 3.4 MG/DL (2.5-4.9) Magnesium Level 2.3 MG/DL (1.5-2.5) (Sapphire Chen) Result Diagram: 03/30/17 0430 03/30/17 0430 Imaging Last Impressions Chest X-Ray 03/30/17 0600 Signed Impressions: Service Date/Time: Thursday, March 30, 2017 03:35 - CONCLUSION: Cardiomegaly with interstitial edema. Status post CABG. Fernando Mack MD Upper Extremity Ultrasound 03/14/17 0000 Signed Impressions: Service Date/Time: Tuesday, March 14, 2017 18:49 - CONCLUSION: 1. Thrombus throughout the cephalic veins bilaterally. These are superficial venous structures. 2. Questionable minimal thrombus within the left subclavian vein. Garrick Hinton Jr., MD CT Angiography 03/02/17 1206 Signed Impressions: Service Date/Time: Thursday, March 02, 2017 13:46 - CONCLUSION: 1. No pulmonary embolus identified. 2. Small bilateral effusions with significant dependent atelectasis bilaterally. Riley Bob MD Lower Extremity Ultrasound 02/27/17 0000 Signed Impressions: Service Date/Time: Monday, February 27, 2017 08:31 - CONCLUSION: Normal examination. Nick Farrell MD Abdomen X-Ray 02/24/17 0000 Signed Impressions: Service Date/Time: Friday, February 24, 2017 10:43 - CONCLUSION: 1. Nasogastric tube just across the GE junction. 2. Minimal nonspecific bowel gas dilatation. Artur Bob MD FACR Procedures * Central line placement * PEG tube placement * Tracheostomy 03/28/17 . (Sapphire Chen) Assessment and Plan Disease Oriented Problem List: (1) Acute respiratory failure (2) COPD with acute exacerbation Comment: Currently intubated with FiO2 of 50% (3) Ischemic dilated cardiomyopathy Comment: EF 20% (4) Atrial flutter Comment: Has PPM with AICD (5) COPD (chronic obstructive pulmonary disease) Symptom Scale: (1) Pain 0-10 Scale: Unable to quantify Comment: History of arthritis with shoulder ORIF. Other sources of pain include prolonged bedbound status; cabrera catheter; venous access lines; tracheostomy . (2) Dyspnea 0-10 Scale: Unable to quantify Comment: COPD exacerbation, now vent dependent . 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 Important Contacts Brooke Doran - [phone] (home), or [phone] (cellvoicemail not set up) . Prognosis Patient may survive ICU and hospital, but alf prognosis is poor given underlying lung status and severity of his cardiomyopathy. If he does survive the hospitalization, there is a high probability of recurrent hospitalizations and fairly dependent functional status between. Hopefully, he will have a greater chance of weaning now that his has trach in place. . Code Status: No Code Plan * CODE STATUS: No code. DNR. * HEALTHCARE DECISION-MAKER: Patient appears incapacitated at this time secondary to clinical condition. Unclear if he will regain capacity. Healthcare proxy is Brooke. * GOALS OF CARE: Goals of care at this point is to allow a few more days for clinical improvement, likely to transition patient to comfort directed care should patient's condition does not improve/unable to wean off vent support or condition worsen. * SYMPTOMS: = Shortness of breath, currently vent dependent at this time. FiO2 50%. Unable to start weaning trials at this time. Hx of severe COPD and CAD with cardiomyopathy status post PPM/AICD with an EF of 20%. ==Debility, secondary to prolonged hospitalization. == Pain, secondary to prolonged bedrest , trach. Currently on fentanyl drip. * Case discussed with Dr. Licona and bedside RN. * Ongoing emotional support and active listening provided. Spiritual care following. * Palliative care contact information has been provided to patient's . * Palliative care will continue to follow-up patient and family for further clarifications of goals of care as patient's clinical course continues to evolve. . (Sapphire Chen) Time Spent Total Floor Time (mins): 34 (Total time to include review of medical records, physical exam, bedside conversation with patient's and case discussion with Dr. Licona and bedside RN.) >50% Counseling/Coord of Care: Yes (Sapphire Chen) Attestation To help prompt me to consider important information that might be impacting today's encounter and assessment, information from prior notes written by myself or my colleagues may have been "brought forward" into today's note. My signature on this note, however, is an attestation that I personally performed the exam, history, and/or decision-making noted today, and, unless otherwise indicated, the interactions with patient, family, and staff as well as the review of records all occurred today. I also attest that the listed assessment and stated plan reflect my best clinical judgment today based on the combination of historical information, prior notes, and today's exam/ interactions. When time spent is documented, it refers only to time spent today by the signer, or if indicated, combined time spent today by collaborating physician/nurse practitioner. (Sapphire Chen) Collaborating MD Comments . Chart reviewed. Cased discussed with palliative care KNITTING DEMONSTRATOR. Above KNITTING DEMONSTRATOR note reviewed and I concur. . (Ishmael Wiley MD) Sapphire Chen March 30, 2017 14:30 Ishmael Wiley MD April 23, 2017 15:40
--- NOTE | 2017-03-30 16:52 | HHI.PR ---
Subjective Remarks Sedated and on the vent at 50 % FIO2, and PEEP 10 cm. Trach is in. On Diprivan/Fentanyl/Versed. No fever. Objective Vital Signs Date Time Temp Pulse Resp B/P Pulse Ox O2 Delivery O2 Flow Rate FiO2 03/30/17 16:41 96 50 03/30/17 14:00 108 03/30/17 12:45 77 13 111/58 96 03/30/17 12:30 77 13 112/57 93 03/30/17 12:26 93 50 03/30/17 12:15 81 14 104/58 93 03/30/17 12:00 88 03/30/17 12:00 50 03/30/17 12:00 98.0 88 11 106/53 93 03/30/17 11:46 84 12 133/59 93 03/30/17 11:30 76 10 115/66 94 03/30/17 11:15 70 7 113/58 94 03/30/17 11:00 71 12 104/59 93 03/30/17 10:45 69 12 108/55 94 03/30/17 10:30 69 12 102/56 94 03/30/17 10:15 69 12 103/60 95 03/30/17 10:00 69 12 126/58 95 03/30/17 10:00 69 03/30/17 09:45 69 12 111/59 95 03/30/17 09:30 69 12 105/57 95 03/30/17 09:15 69 12 111/64 95 03/30/17 09:00 69 12 120/59 96 03/30/17 08:45 69 12 108/55 95 03/30/17 08:30 69 12 123/58 94 03/30/17 08:15 69 12 106/55 96 03/30/17 08:09 99 50 03/30/17 08:00 69 03/30/17 08:00 69 12 101/54 93 03/30/17 08:00 50 03/30/17 06:00 69 03/30/17 04:36 96 50 03/30/17 04:00 99.4 121 12 135/60 96 03/30/17 04:00 69 03/30/17 04:00 50 03/30/17 02:00 69 03/30/17 01:13 96 50 03/30/17 00:00 50 03/30/17 00:00 99.4 121 12 135/60 96 03/30/17 00:00 115 03/29/17 22:19 98 50 03/29/17 22:00 84 03/29/17 20:00 99.2 115 24 141/74 95 03/29/17 20:00 115 03/29/17 20:00 50 03/29/17 19:49 96 50 03/29/17 18:00 89 03/29/17 17:59 99 50 I/O 03/29/17 03/29/17 03/29/17 03/30/17 03/30/17 03/30/17 07:00 15:00 23:00 07:00 15:00 23:00 Intake Total 214 ml 250 ml 1094 ml 306 ml Output Total 200 ml 1050 ml 300 ml 230 ml Balance 14 ml -800 ml 794 ml 76 ml IV Total 214 ml 250 ml 798 ml 179 ml Tube Feeding 196 ml 127 ml Other 100 ml Output Urine Total 200 ml 1050 ml 300 ml 230 ml Stool Total 0 ml 0 ml Result Diagram: 03/30/17 04303/30/17 043 Objective Remarks PHYSICAL EXAMINATION GENERAL: This moderately obese elderly man is sedated, assisting the ventilator. HEENT: Head normocephalic. Pupils are reactive. Opens eyes. NECK: No bruits or thyroid enlargement. CHEST: Equal movements with diminished breath sounds at the bases with occ basilar crackles. HEART: The heart sounds are regular, S1 and S2. No murmur. ABDOMEN: Soft, obese, without masses. No organomegaly. Bowel sounds are faint. EXTREMITIES: No Edema with decreased pulses . NEUROLOGIC: Reflexes 1 +. Muscle wasting. SKIN: Warm and dry. Assessment and Plan Assessment and Plan IMPRESSION 1. Hypercapnic respiratory failure and hypoxemic respiratory failure. 2. COPD with chronic bronchitis and acute exacerbation. 3. Congestive heart failure. 4. Cardiomyopathy with ischemic heart disease. 5. Hypertension and hyperlipidemia. 6. Possible obstructive sleep apnea. 7. pulmonary HTN. Plan : 1. Wean O2 to keep sat >92. 2. Wean Off Diprivan 3. BMP,CBC. 4. Tube feeds at 50 CC. 5. Cont daily Lasix 40 mg. 6. PT evaluation 7. Solumedrol 20 mg bid. 8. Resume Heparin prophylaxis Bri Stout MD March 30, 2017 16:52
[2017-03-30] MEDS: MIDAZOLAM 100 MG/ML INJ 100 ML IV SCH (17:32)
[2017-03-30] MEDS: HEPARIN SODIUM - SQ 10,000 UNITS/ML VIAL SQ SCH (19:54)
[2017-03-30] MEDS: ATORVASTATIN 40 MG TAB PO SCH (19:54)
[2017-03-31] VITALS (47 sets, daily range): BP systolic 93–122; BP diastolic 50–64; PULSE 69–104; RESP 0–12; TEMP 98.4–99.9; O2SAT 80–100
[2017-03-31] MEDS: fentaNYL DRIP 250 ML IV SCH ×2 (03:36→16:09)
[2017-03-31] MEDS: CHLORHEXIDINE GLUCONATE 2 % 1 PACK (2 CLOTHS) TOP SCH (04:00)
[2017-03-31] MEDS: INSULIN NovoLIN REGULAR SUPPLEMENTAL SCALE SQ SCH ×4 (05:00→23:00)
[2017-03-31] MEDS: FREE WATER G-TUBE SCH ×3 (06:00→20:40)
[2017-03-31] MEDS: MIDAZOLAM 100 MG/ML INJ 100 ML IV SCH ×2 (08:47→18:04)
[2017-03-31] MEDS: HEPARIN SODIUM - SQ 10,000 UNITS/ML VIAL SQ SCH (08:47)
[2017-03-31] MEDS: FUROSEMIDE 40 MG/4 ML VIAL IV PUSH SCH (08:48)
[2017-03-31] MEDS: LISINOPRIL 5 MG TAB PO SCH (08:48)
[2017-03-31] MEDS: PANTOPRAZOLE SODIUM 40 MG VIAL IV SCH (08:48)
[2017-03-31] MEDS: DOCUSATE SODIUM 100 MG/10 ML UDC PO SCH ×2 (08:48→20:39)
[2017-03-31] MEDS: SENNOSIDES SYRUP 8.8 MG/5 ML CUP PO SCH (08:48)
[2017-03-31] MEDS: methylPREDNISolone SOD SUCC 40 MG/1 ML VIAL IV PUSH SCH ×2 (08:48→20:40)
[2017-03-31] MEDS: METOPROLOL TARTRATE 25 MG TAB PO SCH ×2 (08:49→20:40)
[2017-03-31] MEDS: CHLORHEXIDINE 0.12% (ORAL KIT) 15 ML CUP MT SCH ×2 (08:49→20:39)
[2017-03-31] MEDS: RESP: ALBUTEROL 2.5 MG/IPRATROPIUM 0.5 MG NEB (PRN) NEB (09:21)
--- NOTE | 2017-03-31 10:33 | HHI.PR ---
Subjective Remarks 5/6 No acute events overnight. Remains on ventilator via trach. Afebrile. Sedated with Fentanyl and Versed. Objective Vital Signs Vital Signs Date Time Temp Pulse Resp B/P Pulse Ox O2 Delivery O2 Flow Rate FiO2 03/31/17 10:00 70 12 96/53 89 03/31/17 09:45 71 12 102/52 90 03/31/17 09:30 71 12 114/58 96 03/31/17 09:21 94 40 03/31/17 09:15 70 12 122/56 96 03/31/17 09:00 40 03/31/17 09:00 72 12 96/55 95 03/31/17 08:45 71 12 97/52 94 03/31/17 08:30 74 12 102/56 94 03/31/17 08:15 76 12 101/57 94 03/31/17 08:00 98.4 78 12 107/64 94 03/31/17 08:00 50 03/31/17 06:00 104 03/31/17 04:02 100 50 03/31/17 04:00 83 03/31/17 04:00 99.0 69 12 120/62 80 03/31/17 04:00 50 03/31/17 02:00 69 03/31/17 00:16 92 50 03/31/17 00:00 99.9 69 12 98/64 90 03/31/17 00:00 50 03/31/17 00:00 69 03/30/17 22:00 93 03/30/17 20:32 96 50 03/30/17 20:00 50 03/30/17 20:00 22 03/30/17 20:00 99.4 125 12 150/79 97 03/30/17 18:15 120 20 128/60 96 03/30/17 18:00 95 03/30/17 18:00 95 5 126/57 93 03/30/17 17:46 118 28 163/70 92 03/30/17 17:30 121 35 143/84 96 03/30/17 17:16 116 27 133/67 96 03/30/17 17:01 94 0 105/62 94 03/30/17 17:00 95 5 94 03/30/17 16:45 105 28 111/55 95 03/30/17 16:41 96 50 03/30/17 16:30 100 16 143/67 97 03/30/17 16:16 85 12 105/54 94 03/30/17 16:00 50 03/30/17 16:00 98.2 151 36 114/91 96 03/30/17 16:00 94 03/30/17 14:00 108 03/30/17 12:45 77 13 111/58 96 03/30/17 12:30 77 13 112/57 93 03/30/17 12:26 93 50 03/30/17 12:15 81 14 104/58 93 03/30/17 12:00 88 03/30/17 12:00 50 03/30/17 12:00 98.0 88 11 106/53 93 03/30/17 11:46 84 12 133/59 93 03/30/17 11:30 76 10 115/66 94 03/30/17 11:15 70 7 113/58 94 03/30/17 11:00 71 12 104/59 93 03/30/17 10:45 69 12 108/55 94 03/30/17 10:30 69 12 102/56 94 I/O 03/30/17 03/30/17 03/30/17 03/31/17 03/31/17 03/31/17 07:00 15:00 23:00 07:00 15:00 23:00 Intake Total 306 ml 976 ml 652 ml 652 ml Output Total 230 ml 1300 ml 210 ml 200 ml Balance 76 ml -324 ml 442 ml 452 ml IV Total 179 ml 664 ml 270 ml 182 ml Tube Feeding 127 ml 212 ml 182 ml 270 ml Other 100 ml 200 ml 200 ml Output Urine Total 230 ml 1300 ml 210 ml 200 ml Stool Total 0 ml 0 ml 0 ml 0 ml Result Diagram: 03/30/17 0430 03/30/17 2316 Other Results Laboratory Tests Test 03/30/17 23:16 Potassium Level 4.0 MEQ/L Phosphorus Level 2.8 MG/DL Objective Remarks GENERAL: Patient is 66 yo sedated and on ventilator via trach SKIN: Warm and dry. HEAD: Normocephalic. EYES: No scleral icterus. No injection or drainage. NECK: Supple, trachea midline. No JVD or lymphadenopathy. CARDIOVASCULAR: Regular rate and rhythm without murmurs, gallops, or rubs. RESPIRATORY: Breath sounds equal bilaterally. No accessory muscle use. Trach in place GASTROINTESTINAL: Abdomen soft, non-tender, nondistended. MUSCULOSKELETAL: No cyanosis, or edema. Neuro: Sedated A/P Assessment and Plan 1)Acute on chronic hypercapnic resp failure- s/p trach 2)COPD with chronic bronchitis and acute exacerbation. 3)Congestive heart failure. 4)Atelectasis b/l 5)Hypertension and hyperlipidemia. 6)Possible obstructive sleep apnea. 7)Afib Plan Continue with vent support keep sat >02% Bronchodilators, Solumederol 20mg IV BID. On PRVC/AC RR 12, TV 600, IT:1.10, PEEP:10, FIO2 40%, Pulm toilet, trach care CXR from 03/30 showed interstitial edema CTA chest negative for PE, Doppler US LE negative for DVT on 02/27 Continue with diuretics- on Lasix 40mg IV daily Echo showed EF 40-45%, cards is following Off abx monitor for signs of infections ( Fever, WBC) GI/DVT prophylaxis Palliative care is following. Continue treatment plan Georgia Ocampo MD March 31, 2017 10:32
[2017-03-31] MEDS ORDERED: MAGNESIUM HYDROXIDE SUSP 30 ML CUP PO PRN (17:15)
--- NOTE | 2017-03-31 17:21 | HHI.CCPN ---
Subjective Remarks/Hospital Course The patient is a 66-year-old male with past medical history of COPD, cardiomyopathy, hypertension, gastroesophageal reflux disease, hyperlipidemia and coronary artery disease. The patient presented to [facility] ED with a 2-week history of progressive worsening shortness of breath. On arrival to the ED he was initially placed on a non-rebreather mask and ABG was performed which showed acute hypercapnic respiratory failure with a pH of 7.14, CO2 121, pAO2 141, bicarb 40, sats 93%. His laboratory data significant for hyperkalemia with potassium level 6.0 and acute renal failure with a BUN of 43 and creatinine 2.07 respectively. The chest x-ray showed cardiomegaly and findings of vascular congestion without overt failure. In the ED the patient was intubated with etomidate and rocuronium and placed on full mechanical ventilation. In addition, he is scheduled to receive 10 units IV regular insulin, 1 amp of D50 and calcium gluconate for hyperkalemia. He received cefepime, azithromycin, Solu-Medrol 125 milligrams IV push and bronchodilator treatment. When seen the patient is on Diprivan infusion for sedation and full mechanical ventilation. Per the patient is not on any oxygen at home and he occasionally smokes cigarettes. 02/24 Patient is intubated and sedated with Diprivan and Fentanyl. Switched to PC/ AC with RR 12, IP:24, IT:1.06, PEEP: 8 and FIO2 100%. CXR this morning showed interval development of bilateral perihilar and lower lung zone airspace opacity he was given Lasix 60mg total overnight. 02/25 Patient remains sedated and intubated with Diprivan and Fentanyl. Afebrile.On PC/AC with RR 12, IP:22, IT:1.10, PEEP:10, FIO2 70%. Afebrile. Renal function worse today with Cr: 1.90 from 1.72 UO: 1150ml in 24 hrs 02/26 No acute events overnight. Sedated with Fentanyl and Diprivan and intubated. Afebrile. His O2 requirements is less now on PC/AC with IP:22, IT: 1.1 with PEEP: 10 and FIO2 55%. Renal function improving with Cr: 1.42 today from 1.90. Tolerating tube feeds. 02/27 Patient remains sedated with Diprivan and Fentanyl infusion and intubated. Afebrile. 02/28: Remains sedated, orally intubated on mechanical ventilation. Being diuresed with Bumex. Tolerating tube feeds. 03/01: Remains sedated, orally intubated on mechanical ventilation. Being diabetes. Remains on PEEP of 10 and FiO2 60% 03/02 Patient remains sedated with Diprivan and Fentanyl and intubated. On PC/AC with PEEP: 10 and FIO2 80% overnight and sats 93-94%. Afebrile. 03/03: The patient remains on high respiratory requirements PEEP of 10, and FiO2 70%. 03/04: Tmax 99.9. Overnight the patient was noted to have desaturations the patient received a bolus of midazolam and fentanyl for ventilator dyssynchrony. The patient was redosed with Diamox with approximately 2.5 L diuresis in the last 12 hours. The patient continues on an FiO2 of 70% with PEEP of 10 to maintain an O2 sat of 90%. 03/05: Afebrile. Patient's FiO2 remains at 60% to maintain O2sat ranging in 92% . Future plans for tracheostomy discussed with when ventilator requirements are decreased. Patient currently is on a PEEP of 10. Patient receiving multiple doses of diuretics chest x-ray still showing increased vascular congestion. Cardiology following metalazone added to medication regimen per cardiology for diuresis. 03/06: Patient's O2 requirements were increased overnight to FiO2 of 90%. The patient's FiO2 has been decreased now currently to 70% O2 sat is 90% ABG is pending. The patient's diuresis effective, 1 kg weight loss in 24 hours. 03/07: The patient continues to have effective diuresis. The patient's O2 requirements currently FiO2 is 70% to maintain a sat of 90-91%. Discussion with Ms. London yesterday, she would like to discuss with palliative team goals of care. Palliative care consult initiated. 03/08: The patient was less responsive to diuretics today, positive weight balance last 24 hours. The patient was placed on a Lasix infusion, noted occasional PVCs on telemetry. Patient potassium repletion ongoing, schedule potassium PO intake increased to 50 mEq twice a day. Free water flushes placed on hold, was sodium level 145 will continue to monitor. Chest x-ray shows slight improvement. Continued management of ventilator settings ARDS protocol, maintaining PaO2 60 or greater and adjusting vent settings based on PaO2. Sedation vacation attempted today by CABLE RESPOOLER, GCS 11T. Noted WBC elevation today ID consulted. 03/09: Today the patient was noted to have increasing FiO2 requirements with a PaO2 of 61. FiO2 was increased to 100%, PEEP was gradually increased to 12, then 14. The patient subsequently became hypotensive, likely due to increasing PEEP, but chest x-ray also obtained to rule out pneumothorax which was clear. The patient subsequently was laced on phenylephrine low-dose 20 mcgs which was eventually weaned off. The patient was placed on PEEP at 7 and FiO2 of 100%, sedation was weaned to lower dose. Palliative care also discussed with goals of care and the patient was made DNR. 03/10 noted creatinine elevation last night, Lasix discontinued. Dobutamine initiated per cardiology this morning. The patient continues to have high requirements on a PEEP of 8 and FiO2 of 100% his PaO2 49.2. PEEP has been increased plan to initiate Flolan. 03/11: Tmax 100.5. FRANK resolved with dobutamine infusion, heart rate 110. Microbiology report bacteremia gram-positive cocci and sputum. Patient currently on Diflucan. Will begin Linezolid in the setting of recent FRANK and oliguria, and await further recommendations from infectious disease communication consultant. Respiratory status deteriorating. The patient was placed on Flolan last night PaO2 67. Patient remains on a PEEP of 10, unable to advance secondary to hypotension. 03/12 Patient remains sedated with Diprivan, Fentanyl and intubated. On Dobutamine 2.5 mics and Flolan. Remains On PC/AC with RR 12, IP:22, IT:1.20, PEEP;10 and FIo2 90%. Afebrile. 03/13 Patient is sedated with Diprivan and Fentanyl and intubated. On PC/AC with PEEP:12, FIO2 80%. Tmax 101.7 Remains on Dobutamine and Flolan. 03/14 Patient remains sedated and intubated. On PC/AC with PEEP:12 and FIO2 100% . T: 101.5 last night. On Flolan off Dobutamine. 03/15 No acute events overnight. Sedated with Diprivan and Fentanyl. On PC/AC with PEEP: 12, FIO2 down to 70%. Tmax 101.6. On Flolan nebs. 03/16 Patient remains sedated and intubated On PC/AC with decrease in FIO2 requirements down to 65% FIO2 with PEEP: 12. Tmax 101.4. On Heparin drip. 03/17 Patient remains sedated and intubated. T: 99.7, heparin drip turned off as patient had bloody secretions with suctioning and Hemoccult was positive. 03/18 No acute events overnight. Remains sedated and intubated. Tmax 102.8. Off heparin drip patient has minimal bloody secretions. 03/19 Patient remains sedated with Diprivan and Fentanyl intubated. Afebrile. 03/20 No acute events overnight. Sedated and intubated. Tmax : 100.8. NPO for EGD and PEG tube placement today. 03/21 remains sedated, orally intubated on mechanical ventilation. Flolan inhaled stopped today. Switched to PRVC mode mechanical ventilation from PC/AC. 03/22:Remains sedated, orally intubated on mechanical ventilation. Deep decreased to +10, FiO2 55%. 03/23: Arouses on lightening sedation, moving all 4 extremities. Orally intubated on mechanical ventilation. On PEEP of +10, FiO2 50% 03/24: Sedated, arousable, orally intubated on mechanical ventilation. PEEP +10 , FiO2 60% today. 03/25: Remains sedated, orally intubated on mechanical ventilation. PEEP of +10 , FiO2 50%. Minimal blood-tinged respiratory secretions noted. Heparin drip stopped 03/25 03/26: Remains sedated, orally intubated on mechanical ventilation. PEEP remains at +10, FiO2 60%. Discussed with Dr. Bal, doubt patient can tolerate bronchoscopies hence he is planning to do tracheostomy in the OR. 03/27: Sedated, arousable, remains orally intubated on mechanical ventilation. Awaiting tracheostomy in the OR which is scheduled for tomorrow. 03/28: Sedated, arousable, remains orally intubated on mechanical ventilation at the time of my evaluation in the morning. Subsequently taken for tracheostomy 03/29: Afebrile. Patient remains sedated and intubated. He is status post tracheostomy. PEEP remains at 10,FIO2 60%. 03/30 Sedated, tracheostomy postop day 2, patient continues to have high ventilatory requirements PEEP of 10, and able to perform CPAP trials. Previously patient was noted to be bleeding from endotracheal to prior to tracheostomy. Will initiate heparin subcutaneous DVT prophylaxis, and closely monitor before beginning full anticoagulation of heparin. 56: Afebrile. Will begin heparin infusion today, and closely monitor for signs of bleeding. The patient was on subcutaneous heparin yesterday without any evidence of bleeding. The patient remains on a PEEP of 10 with high O2 requirements, continue attempts at weaning. Objective Vital Signs Date Time Temp Pulse Resp B/P Pulse Ox O2 Delivery O2 Flow Rate FiO2 03/31/17 15:00 73 03/31/17 15:00 4 101/58 96 03/31/17 14:46 50 03/31/17 12:00 98.9 Intake and Output 03/30/17 03/30/17 03/31/17 08:00 16:00 00:00 Intake Total 306 ml 976 ml 652 ml Output Total 230 ml 1300 ml 210 ml Balance 76 ml -324 ml 442 ml Result Diagram: 03/30/17 0430 03/30/17 2316 Imaging Last Impressions Chest X-Ray 03/30/17 0600 Signed Impressions: Service Date/Time: Thursday, March 30, 2017 03:35 - CONCLUSION: Cardiomegaly with interstitial edema. Status post CABG. Fernando Mack MD Upper Extremity Ultrasound 03/14/17 0000 Signed Impressions: Service Date/Time: Tuesday, March 14, 2017 18:49 - CONCLUSION: 1. Thrombus throughout the cephalic veins bilaterally. These are superficial venous structures. 2. Questionable minimal thrombus within the left subclavian vein. Garrick Hinton Jr., MD CT Angiography 03/02/17 1206 Signed Impressions: Service Date/Time: Thursday, March 02, 2017 13:46 - CONCLUSION: 1. No pulmonary embolus identified. 2. Small bilateral effusions with significant dependent atelectasis bilaterally. Riley Bob MD Lower Extremity Ultrasound 02/27/17 0000 Signed Impressions: Service Date/Time: Monday, February 27, 2017 08:31 - CONCLUSION: Normal examination. Nick Farrell MD Abdomen X-Ray 02/24/17 0000 Signed Impressions: Service Date/Time: Friday, February 24, 2017 10:43 - CONCLUSION: 1. Nasogastric tube just across the GE junction. 2. Minimal nonspecific bowel gas dilatation. Artur Bob MD FACR Last Impressions Chest X-Ray 03/18/17 0000 Signed Impressions: Service Date/Time: Saturday, March 18, 2017 08:43 - CONCLUSION: Left lower lobe consolidation/atelectasis and likely some effusion. Nick Menchaca MD Upper Extremity Ultrasound 03/14/17 0000 Signed Impressions: Service Date/Time: Tuesday, March 14, 2017 18:49 - CONCLUSION: 1. Thrombus throughout the cephalic veins bilaterally. These are superficial venous structures. 2. Questionable minimal thrombus within the left subclavian vein. Garrick Hinton Jr., MD CT Angiography 03/02/17 1206 Signed Impressions: Service Date/Time: Thursday, March 02, 2017 13:46 - CONCLUSION: 1. No pulmonary embolus identified. 2. Small bilateral effusions with significant dependent atelectasis bilaterally. Riley Bob MD Lower Extremity Ultrasound 02/27/17 0000 Signed Impressions: Service Date/Time: Monday, February 27, 2017 08:31 - CONCLUSION: Normal examination. Nick Farrell MD Abdomen X-Ray 02/24/17 0000 Signed Impressions: Service Date/Time: Friday, February 24, 2017 10:43 - CONCLUSION: 1. Nasogastric tube just across the GE junction. 2. Minimal nonspecific bowel gas dilatation. Artur Bob MD FACR Objective Remarks BP 151/63 P 76 O2 sat 95% GENERAL: Patient is 66 yo obese male sedated. SKIN: Warm and dry. HEAD: Normocephalic. EYES: No scleral icterus. No injection or drainage. NECK: Supple, trachea midline. No JVD or lymphadenopathy. Tracheostomy in situ no erythema or drainage noted CARDIOVASCULAR:Tachycardic without murmurs, gallops, or rubs. RESPIRATORY: On mechanical ventilation, orally intubated, Breath sounds equal bilaterally. Few Coarse BS GASTROINTESTINAL: Abdomen soft, non-tender, nondistended. OGT, tube feedings infusing MUSCULOSKELETAL: 2+ bilateral edema in B/L upper extremities. Neuro: Sedated, arousable, moves all 4 extremities on lightening sedation. Urinary Catheter: Yes Date of Removal: Mar 04, 2017 Line: Central Venous Catheter Side: Right A/P Assessment and Plan 1. Acute hypercapnic and hypoxemic respiratory failure. 2. COPD exacerbation. 3. Acute renal failure. 4. Hypernatremia 5. Obstructive sleep apnea and morbid obesity. 6. Ischemic dilated Cardiomyopathy. S/P AICD 03/2015 7. History of coronary artery disease. 8. Gastroesophageal reflux disease. 9. Hypertension. 10. Hyperlipidemia. 11 Pulm edema 12. Acute on chronic systolic and diastolic CHF 13. Pulmonary hypertension 14. Bacteremia Plan: Neuro: On Diprivan and Fentanyl infusion for sedation. Daily sedation vacation when clinically indicated. Monitor neuro status CV: Monitor HR and BP keep MAP>65mmHg. On Lopressor 12.5mg BID for rate control. On aspirin 325 milligrams p.o. daily and Plavix 75 mg p.o. daily - holding starting 03/22 in anticipation of tracheostomy. Prinivil 5mg daily 01/2017 Echo showed EF 40-45%, nl LV diastolic function, No RWMA Cardiology following-Dr. Cole. Pulm: PRVC mode mechanical ventilation: rate 12 tidal volume 600 I time 1.1 second PEEP 10 FiO2 60% Continue with vent support. Tracheostomy in OR by Dr. Kirkland on 03/28 evening Bronchodilators every 4 hours, Solu-Medrol 40 mg IV BID. Pulm-Dr. Lashell Padron CXR: LLL consolidation/Atelectasis CTA chest 03/02 showed no PE, small pleural effusions Flolan inhaled nebulizer treatment stopped 03/21. Heparin GTT held on 03/25 in view of blood-tinged respiratory secretions, the patient is 2 days S/P Will begin subcutaneous heparin today, plans for initiation of heparin infusion if no bleeding occurrence 03/28 tracheostomy- Dr. Matthew : Monitor renal function Is and Os and avoid nephrotoxins. Electrolytes replacement per protocol. Lasix 40mg daily Decrease Free water 100 ml Q8 on 03/22, monitor sodium level, currently 142 GI: On Protonix 40 mg IV daily for GI prophylaxis. TF(Glucerna 1.5 @45ml/hr. S/p PEG tube placement 03/20 Senna, Colace for bowel regimen, 02/24 KUB abdomen: Minimal non-specific bowel gas dilatation GI is following for anemia and positive Hemoccult. ID: ID following. Stopped antibiotics on 03/23 (Vancomycin, Levaquin) monitor for signs of infections ( Fever, WBC) 03/16 C-diff PCR negative 03/14: BC: NGTD 03/14: Normal resp tiffany, urine cx: No growth 03/09 Repeat Bld cultures-staph Epi, coag negative staph- likely contaminant 03/09 Repeat sputum culture-staph aureus Heme: Monitor CBC. Heparin GTT held on 03/25. Heparin infusion restarted 03/31 at 900 units/hour Endo: SSI with Accu-Chek q. 6-hour for glycemic control. GI prophylaxis with Protonix 40 mg BID and DVT prophylaxis with SCDs, Doppler US UE: 03/14-Thrombus throughout the cephalic veins bilaterally. ? minimal thrombus within the left subclavian vein. Was off Heparin drip as patient had bloody secretions with suctioning ( resolved ) and positive Hemoccult. Heparin resumed (cleared by GI) and subsequently stopped on 03/25 due to blood tinged respiratory secretions, resumed 03/31 Doppler US LE No DVT on 02/27 Dispo: Discussed patient with CABLE RESPOOLER. Palliative care is following. This patient remains critically ill with one or more organ systems which are or may become a threat to life. I have spent in excess of 35 minutes discontinuously in the care and management of this patient. This time is exclusive of procedures, and includes, but is not limited to, evaluation of the patient, review of the medical record, discussions with family, consultants, nursing staff, or respiratory therapy, and documentation in the medical record. Physician Rolanda Maria MD March 31, 2017 17:21
[2017-03-31 17:31] LABS: BLOOD GAS BASE EXCESS 12.2 mmol/L (-2-2); BLOOD GAS CARBOXYHEMOGLOBIN 2.1 % (0-4); BLOOD GAS HCO3 37 mmol/L (22-26); BLOOD GAS METHEMOGLOBIN 1.1 % (0-2); BLOOD GAS O2 HGB SATURATION 95 % (90-100); BLOOD GAS OXYGEN CONTENT 13.2 Vol % (12.0-20.0); BLOOD GAS PCO2 54 mmHg (38-42); BLOOD GAS PO2 108 mmHg (61-120); BLOOD GAS TOTAL HGB 9.8 G/DL (12.0-16.0); TEMP CORR TO 98.6
[2017-03-31 17:32] LABS: CRITICAL VALUE YES; DRAW SITE RT RADIAL; FIO2 50 %; NUMBER OF ARTERIAL PUNCTURES 1; OXYGEN DEVICE VENTILATOR; STAT NO; VENT SETTINGS SEE COMMENTS
[2017-03-31] MEDS: HEPARIN-D5W INJ 250 ML IV SCH (17:33)
[2017-03-31] MEDS: ATORVASTATIN 40 MG TAB PO SCH (20:40)
[2017-04-01] VITALS (20 sets, daily range): BP systolic 102–153; BP diastolic 52–74; PULSE 67–131; RESP 3–27; TEMP 97.8–100.2; O2SAT 92–98
[2017-04-01 00:39] LABS: APTT (PATIENT) 29.4 SEC (24.3-30.1)
[2017-04-01] MEDS: CHLORHEXIDINE GLUCONATE 2 % 1 PACK (2 CLOTHS) TOP SCH (04:00)
--- NOTE | 2017-04-01 04:52 | RADRPT ---
EXAM DATE/TIME: 04/01/2017 03:29 [facility] COMPARISON: CHEST SINGLE AP, March 30, 2017, 3:35. INDICATIONS : Shortness of breath, possible pulmonary disease. MEDICAL HISTORY : Chronic obstructive pulmonary disease. Myocardial infarction. SURGICAL HISTORY : Pacemaker. CABG. ENCOUNTER: Subsequent ACUITY: 1 month PAIN SCORE: Non-responsive. LOCATION: Bilateral chest FINDINGS: A single view of the chest demonstrates cardiomegaly with interstitial edema. Previous CABG. Tracheos alexandra tube unchanged in position. Left-sided pacemaker/defibrillator is stable. Osseous structures ar e intact. CONCLUSION: Cardiomegaly with interstitial edema, slightly improved. Fernando Mack MD on April 01, 2017 at 4:49 Board Certified Radiologist. This report was verified electronically.
[2017-04-01] MEDS: INSULIN NovoLIN REGULAR SUPPLEMENTAL SCALE SQ SCH ×4 (05:00→22:18)
[2017-04-01 05:01] LABS: HEMATOCRIT 31.6 % (39.0-51.0); MEAN CELL VOLUME 91.9 FL (80.0-100.0); MEAN CORPUSCULAR HEMOGLOBIN 28.9 PG (27.0-34.0); MEAN CORPUSCULAR HGB CONC 31.4 % (32.0-36.0); PLATELET COUNT 128 TH/MM3 (150-450); RED BLOOD COUNT 3.44 MIL/MM3 (4.50-5.90); RED CELL DISTRIBUTION WIDTH 17.4 % (11.6-17.2); REVIEW FLAG FINAL; WHITE BLOOD COUNT 12.8 TH/MM3 (4.0-11.0)
[2017-04-01 05:22] LABS: BICARBONATE 38.5 MEQ/L (21.0-32.0); MAGNESIUM 2.6 MG/DL (1.5-2.5); POTASSIUM 4.2 MEQ/L (3.5-5.1)
[2017-04-01] MEDS: MIDAZOLAM 100 MG/ML INJ 100 ML IV SCH (05:31)
[2017-04-01] MEDS: FREE WATER G-TUBE SCH ×3 (05:31→21:08)
[2017-04-01 07:49] LABS: APTT (PATIENT) 35.2 SEC (24.3-30.1)
[2017-04-01] MEDS: CHLORHEXIDINE 0.12% (ORAL KIT) 15 ML CUP MT SCH ×2 (08:23→21:08)
[2017-04-01] MEDS: DOCUSATE SODIUM 100 MG/10 ML UDC PO SCH ×2 (08:42→21:08)
[2017-04-01] MEDS: SENNOSIDES SYRUP 8.8 MG/5 ML CUP PO SCH (08:42)
[2017-04-01] MEDS: LISINOPRIL 5 MG TAB PO SCH (08:42)
[2017-04-01] MEDS: LACTULOSE SYRUP 20 GM/30 ML CUP PO SCH (08:42)
[2017-04-01] MEDS: PANTOPRAZOLE SODIUM 40 MG VIAL IV SCH (08:43)
[2017-04-01] MEDS: METOPROLOL TARTRATE 25 MG TAB PO SCH ×2 (08:43→21:08)
[2017-04-01] MEDS: FUROSEMIDE 40 MG/4 ML VIAL IV PUSH SCH (08:43)
[2017-04-01] MEDS: methylPREDNISolone SOD SUCC 40 MG/1 ML VIAL IV PUSH SCH ×2 (08:43→21:07)
--- NOTE | 2017-04-01 09:57 | HHI.PR ---
Subjective Remarks 04/01 Patient remains sedated with Versed , Fentanyl and intubated. On PRVC/AC with PEEP:8 and FIO2 50%. On Heparin drip. Afebrile. TF held for high residuals. Objective Vital Signs Vital Signs Date Time Temp Pulse Resp B/P Pulse Ox O2 Delivery O2 Flow Rate FiO2 04/01/17 06:00 72 04/01/17 04:29 96 50 04/01/17 04:00 98.7 78 12 104/61 95 04/01/17 04:00 50 04/01/17 04:00 78 04/01/17 02:00 69 04/01/17 00:06 93 50 04/01/17 00:00 98.5 69 13 102/52 92 04/01/17 00:00 50 04/01/17 00:00 70 03/31/17 22:00 69 03/31/17 21:29 95 50 03/31/17 20:00 50 03/31/17 20:00 98.6 71 12 110/53 95 03/31/17 20:00 71 03/31/17 18:15 70 12 98/60 94 03/31/17 18:15 70 03/31/17 18:00 74 0 95/54 95 03/31/17 18:00 40 03/31/17 18:00 74 03/31/17 17:48 96 50 03/31/17 17:45 74 12 97/55 96 03/31/17 17:45 74 03/31/17 17:30 72 5 103/55 96 03/31/17 17:30 72 03/31/17 17:15 73 12 97/55 96 03/31/17 17:15 73 03/31/17 17:00 70 10 110/55 96 03/31/17 17:00 70 03/31/17 16:45 73 6 98/53 96 03/31/17 16:45 73 03/31/17 16:30 71 0 114/58 96 03/31/17 16:30 71 03/31/17 16:15 70 12 94/55 96 03/31/17 16:15 70 03/31/17 16:01 71 1 109/57 95 03/31/17 16:01 71 03/31/17 16:00 98.7 70 1 95 03/31/17 16:00 70 03/31/17 16:00 40 03/31/17 15:00 73 03/31/17 15:00 73 4 101/58 96 03/31/17 14:46 96 50 03/31/17 14:45 70 6 98/50 95 17 14:45 70 03/31/17 14:30 71 4 107/55 95 03/31/17 14:30 71 03/31/17 14:15 70 6 104/56 94 03/31/17 14:15 70 03/31/17 14:00 70 0 96/53 95 03/31/17 14:00 70 03/31/17 13:45 70 6 95/52 94 03/31/17 13:45 70 03/31/17 13:30 77 03/31/17 13:30 77 8 93/59 94 03/31/17 13:15 71 3 99/55 95 03/31/17 13:15 71 03/31/17 13:00 69 0 106/59 94 03/31/17 13:00 69 03/31/17 12:45 70 0 103/60 95 03/31/17 12:45 70 03/31/17 12:30 72 03/31/ 12:30 72 0 106/54 95 03/31/17 12:15 72 0 102/51 95 03/31/17 12:15 72 03/31/17 12:00 40 03/31/17 12:00 98.9 71 0 107/54 94 03/31/17 12:00 71 03/31/17 11:41 91 50 03/31/17 10:15 71 03/31/17 10:00 70 03/31/17 10:00 70 12 96/53 89 I/O 03/31/17 5/6/ 56/17 04/01/17 5/17 04/01/17 07:00 15:00 23:00 07:00 15:00 23:00 Intake Total 652 ml 814 ml 811 ml 721 ml Output Total 200 ml 1100 ml 226 ml 250 ml Balance 452 ml -286 ml 585 ml 471 ml IV Total 182 ml 293 ml 309 ml 277 ml Tube Feeding 270 ml 421 ml 402 ml 344 ml Other 200 ml 100 ml 100 ml 100 ml Output Urine Total 200 ml 1100 ml 225 ml 250 ml Stool Total 0 ml 0 ml 1 ml 0 ml # Bowel Movements 0 1 Result Diagram: 04/01/17 0345 04/01/17 0345 Other Results Laboratory Tests Test 03/31/17 03/31/17 04/01/17 04/01/17 17:21 23:44 03:45 07:22 Blood Gas Puncture Site RT RADIAL Blood Gas Patient Temperature 98.6 Blood Gas HCO3 37 mmol/L Blood Gas Base Excess 12.2 mmol/L Blood Gas Oxygen Saturation 95 % Arterial Blood pH 7.45 Arterial Blood Partial 54 mmHg Pressure CO2 Arterial Blood Partial 108 mmHg Pressure O2 Arterial Blood Oxygen Content 13.2 Vol % Arterial Blood 2.1 % Carboxyhemoglobin Arterial Blood Methemoglobin 1.1 % Blood Gas Hemoglobin 9.8 G/DL Oxygen Delivery Device VENTILATOR Blood Gas Ventilator Setting SEE COMMENTS Blood Gas Inspired Oxygen 50 % Activated Partial 29.4 SEC 35.2 SEC Thromboplast Time Phosphorus Level 3.4 MG/DL White Blood Count 12.8 TH/MM3 Red Blood Count 3.44 MIL/MM3 Hemoglobin 9.9 GM/DL Hematocrit 31.6 % Mean Corpuscular Volume 91.9 FL Mean Corpuscular Hemoglobin 28.9 PG Mean Corpuscular Hemoglobin 31.4 % Concent Red Cell Distribution Width 17.4 % Platelet Count 128 TH/MM3 Mean Platelet Volume 8.8 FL Sodium Level 142 MEQ/L Potassium Level 4.2 MEQ/L Chloride Level 99 MEQ/L Carbon Dioxide Level 38.5 MEQ/L Anion Gap 5 MEQ/L Blood Urea Nitrogen 20 MG/DL Creatinine 0.35 MG/DL Estimat Glomerular Filtration 250 ML/MIN Rate Random Glucose 135 MG/DL Calcium Level 9.3 MG/DL Magnesium Level 2.6 MG/DL Objective Remarks GENERAL: Patient is 66 yo sedated and on ventilator via trach SKIN: Warm and dry. HEAD: Normocephalic. EYES: No scleral icterus. No injection or drainage. NECK: Supple, trachea midline. No JVD or lymphadenopathy. CARDIOVASCULAR: Regular rate and rhythm without murmurs, gallops, or rubs. RESPIRATORY: Breath sounds equal bilaterally. No accessory muscle use. Trach in place GASTROINTESTINAL: Abdomen soft, non-tender, nondistended. MUSCULOSKELETAL: No cyanosis, or edema. Neuro: Sedated A/P Assessment and Plan 1)Acute on chronic hypercapnic resp failure- s/p trach 2)COPD with chronic bronchitis and acute exacerbation. 3)Congestive heart failure. 4)Atelectasis b/l 5)Hypertension and hyperlipidemia. 6)Possible obstructive sleep apnea. 7)Afib 8)Thrombus throughout the cephalic veins bilaterally. ? minimal thrombus within the left subclavian vein. Plan Continue with vent support keep sat >02% Bronchodilators, Solumederol 20mg IV BID. On PRVC/AC RR 12, TV 600, IT:1.10, PEEP:8, FIO2 50%, decrease FIO2 40% as kristie Pulm toilet, trach care. Give Diamox 250mg IV x1 CXR today showed interstitial edema, cardiomegaly CTA chest negative for PE, Doppler US LE negative for DVT on 02/27 Continue with diuretics- on Lasix 40mg IV daily Echo showed EF 40-45%, cards is following Off abx monitor for signs of infections ( Fever, WBC) GI/DVT prophylaxis- on Heparin drip monitor PTT. Palliative care is following. Continue treatment plan Georgia Ocampo MD April 01, 2017 09:57
[2017-04-01 14:18] LABS: APTT (PATIENT) 32.8 SEC (24.3-30.1)
--- NOTE | 2017-04-01 14:19 | HHI.CCPN ---
Subjective Remarks/Hospital Course The patient is a 66-year-old male with past medical history of COPD, cardiomyopathy, hypertension, gastroesophageal reflux disease, hyperlipidemia and coronary artery disease. The patient presented to [facility] ED with a 2-week history of progressive worsening shortness of breath. On arrival to the ED he was initially placed on a non-rebreather mask and ABG was performed which showed acute hypercapnic respiratory failure with a pH of 7.14, CO2 121, pAO2 141, bicarb 40, sats 93%. His laboratory data significant for hyperkalemia with potassium level 6.0 and acute renal failure with a BUN of 43 and creatinine 2.07 respectively. The chest x-ray showed cardiomegaly and findings of vascular congestion without overt failure. In the ED the patient was intubated with etomidate and rocuronium and placed on full mechanical ventilation. In addition, he is scheduled to receive 10 units IV regular insulin, 1 amp of D50 and calcium gluconate for hyperkalemia. He received cefepime, azithromycin, Solu-Medrol 125 milligrams IV push and bronchodilator treatment. When seen the patient is on Diprivan infusion for sedation and full mechanical ventilation. Per the patient is not on any oxygen at home and he occasionally smokes cigarettes. 02/24 Patient is intubated and sedated with Diprivan and Fentanyl. Switched to PC/ AC with RR 12, IP:24, IT:1.06, PEEP: 8 and FIO2 100%. CXR this morning showed interval development of bilateral perihilar and lower lung zone airspace opacity he was given Lasix 60mg total overnight. 02/25 Patient remains sedated and intubated with Diprivan and Fentanyl. Afebrile.On PC/AC with RR 12, IP:22, IT:1.10, PEEP:10, FIO2 70%. Afebrile. Renal function worse today with Cr: 1.90 from 1.72 UO: 1150ml in 24 hrs 02/26 No acute events overnight. Sedated with Fentanyl and Diprivan and intubated. Afebrile. His O2 requirements is less now on PC/AC with IP:22, IT: 1.1 with PEEP: 10 and FIO2 55%. Renal function improving with Cr: 1.42 today from 1.90. Tolerating tube feeds. 02/27 Patient remains sedated with Diprivan and Fentanyl infusion and intubated. Afebrile. 02/28: Remains sedated, orally intubated on mechanical ventilation. Being diuresed with Bumex. Tolerating tube feeds. 03/01: Remains sedated, orally intubated on mechanical ventilation. Being diabetes. Remains on PEEP of 10 and FiO2 60% 03/02 Patient remains sedated with Diprivan and Fentanyl and intubated. On PC/AC with PEEP: 10 and FIO2 80% overnight and sats 93-94%. Afebrile. 03/03: The patient remains on high respiratory requirements PEEP of 10, and FiO2 70%. 03/04: Tmax 99.9. Overnight the patient was noted to have desaturations the patient received a bolus of midazolam and fentanyl for ventilator dyssynchrony. The patient was redosed with Diamox with approximately 2.5 L diuresis in the last 12 hours. The patient continues on an FiO2 of 70% with PEEP of 10 to maintain an O2 sat of 90%. 03/05: Afebrile. Patient's FiO2 remains at 60% to maintain O2sat ranging in 92% . Future plans for tracheostomy discussed with when ventilator requirements are decreased. Patient currently is on a PEEP of 10. Patient receiving multiple doses of diuretics chest x-ray still showing increased vascular congestion. Cardiology following metalazone added to medication regimen per cardiology for diuresis. 03/06: Patient's O2 requirements were increased overnight to FiO2 of 90%. The patient's FiO2 has been decreased now currently to 70% O2 sat is 90% ABG is pending. The patient's diuresis effective, 1 kg weight loss in 24 hours. 03/07: The patient continues to have effective diuresis. The patient's O2 requirements currently FiO2 is 70% to maintain a sat of 90-91%. Discussion with Ms. London yesterday, she would like to discuss with palliative team goals of care. Palliative care consult initiated. 03/08: The patient was less responsive to diuretics today, positive weight balance last 24 hours. The patient was placed on a Lasix infusion, noted occasional PVCs on telemetry. Patient potassium repletion ongoing, schedule potassium PO intake increased to 50 mEq twice a day. Free water flushes placed on hold, was sodium level 145 will continue to monitor. Chest x-ray shows slight improvement. Continued management of ventilator settings ARDS protocol, maintaining PaO2 60 or greater and adjusting vent settings based on PaO2. Sedation vacation attempted today by SCREEN REPAIRER CRUSHER, GCS 11T. Noted WBC elevation today ID consulted. 03/09: Today the patient was noted to have increasing FiO2 requirements with a PaO2 of 61. FiO2 was increased to 100%, PEEP was gradually increased to 12, then 14. The patient subsequently became hypotensive, likely due to increasing PEEP, but chest x-ray also obtained to rule out pneumothorax which was clear. The patient subsequently was laced on phenylephrine low-dose 20 mcgs which was eventually weaned off. The patient was placed on PEEP at 7 and FiO2 of 100%, sedation was weaned to lower dose. Palliative care also discussed with goals of care and the patient was made DNR. 03/10 noted creatinine elevation last night, Lasix discontinued. Dobutamine initiated per cardiology this morning. The patient continues to have high requirements on a PEEP of 8 and FiO2 of 100% his PaO2 49.2. PEEP has been increased plan to initiate Flolan. 03/11: Tmax 100.5. FRANK resolved with dobutamine infusion, heart rate 110. Microbiology report bacteremia gram-positive cocci and sputum. Patient currently on Diflucan. Will begin Linezolid in the setting of recent FRANK and oliguria, and await further recommendations from infectious disease safety and health consultant. Respiratory status deteriorating. The patient was placed on Flolan last night PaO2 67. Patient remains on a PEEP of 10, unable to advance secondary to hypotension. 03/12 Patient remains sedated with Diprivan, Fentanyl and intubated. On Dobutamine 2.5 mics and Flolan. Remains On PC/AC with RR 12, IP:22, IT:1.20, PEEP;10 and FIo2 90%. Afebrile. 03/13 Patient is sedated with Diprivan and Fentanyl and intubated. On PC/AC with PEEP:12, FIO2 80%. Tmax 101.7 Remains on Dobutamine and Flolan. 03/14 Patient remains sedated and intubated. On PC/AC with PEEP:12 and FIO2 100% . T: 101.5 last night. On Flolan off Dobutamine. 03/15 No acute events overnight. Sedated with Diprivan and Fentanyl. On PC/AC with PEEP: 12, FIO2 down to 70%. Tmax 101.6. On Flolan nebs. 03/16 Patient remains sedated and intubated On PC/AC with decrease in FIO2 requirements down to 65% FIO2 with PEEP: 12. Tmax 101.4. On Heparin drip. 03/17 Patient remains sedated and intubated. T: 99.7, heparin drip turned off as patient had bloody secretions with suctioning and Hemoccult was positive. 03/18 No acute events overnight. Remains sedated and intubated. Tmax 102.8. Off heparin drip patient has minimal bloody secretions. 03/19 Patient remains sedated with Diprivan and Fentanyl intubated. Afebrile. 03/20 No acute events overnight. Sedated and intubated. Tmax : 100.8. NPO for EGD and PEG tube placement today. 03/21 remains sedated, orally intubated on mechanical ventilation. Flolan inhaled stopped today. Switched to PRVC mode mechanical ventilation from PC/AC. 03/22:Remains sedated, orally intubated on mechanical ventilation. Deep decreased to +10, FiO2 55%. 03/23: Arouses on lightening sedation, moving all 4 extremities. Orally intubated on mechanical ventilation. On PEEP of +10, FiO2 50% 03/24: Sedated, arousable, orally intubated on mechanical ventilation. PEEP +10 , FiO2 60% today. 03/25: Remains sedated, orally intubated on mechanical ventilation. PEEP of +10 , FiO2 50%. Minimal blood-tinged respiratory secretions noted. Heparin drip stopped 03/25 03/26: Remains sedated, orally intubated on mechanical ventilation. PEEP remains at +10, FiO2 60%. Discussed with Dr. Bal, doubt patient can tolerate bronchoscopies hence he is planning to do tracheostomy in the OR. 03/27: Sedated, arousable, remains orally intubated on mechanical ventilation. Awaiting tracheostomy in the OR which is scheduled for tomorrow. 03/28: Sedated, arousable, remains orally intubated on mechanical ventilation at the time of my evaluation in the morning. Subsequently taken for tracheostomy 03/29: Afebrile. Patient remains sedated and intubated. He is status post tracheostomy. PEEP remains at 10,FIO2 60%. 03/30 Sedated, tracheostomy postop day 2, patient continues to have high ventilatory requirements PEEP of 10, and able to perform CPAP trials. Previously patient was noted to be bleeding from endotracheal to prior to tracheostomy. Will initiate heparin subcutaneous DVT prophylaxis, and closely monitor before beginning full anticoagulation of heparin. 03/31: Afebrile. Will begin heparin infusion today, and closely monitor for signs of bleeding. The patient was on subcutaneous heparin yesterday without any evidence of bleeding. The patient remains on a PEEP of 10 with high O2 requirements, continue attempts at weaning. 04/01: The patient was started on full anticoagulation last evening, no evidence of bleeding, remains therapeutic. FiO2 was weaned to 50%. CPAP trials are underway. Chest x-ray slightly improved today. Objective Vital Signs Date Time Temp Pulse Resp B/P Pulse Ox O2 Delivery O2 Flow Rate FiO2 04/01/17 12:00 67 12 123/65 95 04/01/17 12:00 50 04/01/17 11:00 100.2 Intake and Output 03/31/17 03/31/17 04/01/17 08:00 16:00 00:00 Intake Total 652 ml 814 ml 811 ml Output Total 200 ml 1100 ml 226 ml Balance 452 ml -286 ml 585 ml Result Diagram: 04/01/17 0345 04/01/17 0345 Other Results Laboratory Tests Test 03/31/17 17:21 Blood Gas Puncture Site RT RADIAL Blood Gas Patient Temperature 98.6 Blood Gas HCO3 37 mmol/L (22-26) Blood Gas Base Excess 12.2 mmol/L (-2-2) Blood Gas Oxygen Saturation 95 % (90-100) Arterial Blood pH 7.45 (7.380-7.420) Arterial Blood Partial 54 mmHg (38-42) Pressure CO2 Arterial Blood Partial 108 mmHg Pressure O2 (61-120) Arterial Blood Oxygen Content 13.2 Vol % (12.0-20.0) Arterial Blood 2.1 % (0-4) Carboxyhemoglobin Arterial Blood Methemoglobin 1.1 % (0-2) Blood Gas Hemoglobin 9.8 G/DL (12.0-16.0) Oxygen Delivery Device VENTILATOR Blood Gas Ventilator Setting SEE COMMENTS Blood Gas Inspired Oxygen 50 % Imaging Last Impressions Chest X-Ray 04/01/17 0600 Signed Impressions: Service Date/Time: Saturday, April 01, 2017 03:29 - CONCLUSION: Cardiomegaly with interstitial edema, slightly improved. Fernando Mack MD Upper Extremity Ultrasound 03/14/17 0000 Signed Impressions: Service Date/Time: Tuesday, March 14, 2017 18:49 - CONCLUSION: 1. Thrombus throughout the cephalic veins bilaterally. These are superficial venous structures. 2. Questionable minimal thrombus within the left subclavian vein. Garrick Hinton Jr., MD CT Angiography 03/02/17 1206 Signed Impressions: Service Date/Time: Thursday, March 02, 2017 13:46 - CONCLUSION: 1. No pulmonary embolus identified. 2. Small bilateral effusions with significant dependent atelectasis bilaterally. Riley Bob MD Lower Extremity Ultrasound 02/27/17 0000 Signed Impressions: Service Date/Time: Monday, February 27, 2017 08:31 - CONCLUSION: Normal examination. Nick Farrell MD Abdomen X-Ray 02/24/17 0000 Signed Impressions: Service Date/Time: Friday, February 24, 2017 10:43 - CONCLUSION: 1. Nasogastric tube just across the GE junction. 2. Minimal nonspecific bowel gas dilatation. Artur Bob MD FACR Last Impressions Chest X-Ray 03/30/17 0600 Signed Impressions: Service Date/Time: Thursday, March 30, 2017 03:35 - CONCLUSION: Cardiomegaly with interstitial edema. Status post CABG. Fernando Mack MD Upper Extremity Ultrasound 03/14/17 0000 Signed Impressions: Service Date/Time: Tuesday, March 14, 2017 18:49 - CONCLUSION: 1. Thrombus throughout the cephalic veins bilaterally. These are superficial venous structures. 2. Questionable minimal thrombus within the left subclavian vein. Garrick Hinton Jr., MD CT Angiography 03/02/17 1206 Signed Impressions: Service Date/Time: Thursday, March 02, 2017 13:46 - CONCLUSION: 1. No pulmonary embolus identified. 2. Small bilateral effusions with significant dependent atelectasis bilaterally. Riley Bob MD Lower Extremity Ultrasound 02/27/17 0000 Signed Impressions: Service Date/Time: Monday, February 27, 2017 08:31 - CONCLUSION: Normal examination. Nick Farrell MD Abdomen X-Ray 02/24/17 0000 Signed Impressions: Service Date/Time: Friday, February 24, 2017 10:43 - CONCLUSION: 1. Nasogastric tube just across the GE junction. 2. Minimal nonspecific bowel gas dilatation. Artur Bob MD FACR Last Impressions Chest X-Ray 03/18/17 0000 Signed Impressions: Service Date/Time: Saturday, March 18, 2017 08:43 - CONCLUSION: Left lower lobe consolidation/atelectasis and likely some effusion. Nick Menchaca MD Upper Extremity Ultrasound 03/14/17 0000 Signed Impressions: Service Date/Time: Tuesday, March 14, 2017 18:49 - CONCLUSION: 1. Thrombus throughout the cephalic veins bilaterally. These are superficial venous structures. 2. Questionable minimal thrombus within the left subclavian vein. Garrick Hinton Jr., MD CT Angiography 03/02/17 1206 Signed Impressions: Service Date/Time: Thursday, March 02, 2017 13:46 - CONCLUSION: 1. No pulmonary embolus identified. 2. Small bilateral effusions with significant dependent atelectasis bilaterally. Riley Bob MD Lower Extremity Ultrasound 02/27/17 0000 Signed Impressions: Service Date/Time: Monday, February 27, 2017 08:31 - CONCLUSION: Normal examination. Nick Farrell MD Abdomen X-Ray 02/24/17 0000 Signed Impressions: Service Date/Time: Friday, February 24, 2017 10:43 - CONCLUSION: 1. Nasogastric tube just across the GE junction. 2. Minimal nonspecific bowel gas dilatation. Artur Bob MD FACR Objective Remarks BP 151/63 P 76 O2 sat 95% GENERAL: Patient is 66 yo obese male sedated. SKIN: Warm and dry. HEAD: Normocephalic. EYES: No scleral icterus. No injection or drainage. NECK: Supple, trachea midline. No JVD or lymphadenopathy. Tracheostomy in situ no erythema or drainage noted CARDIOVASCULAR:Tachycardic without murmurs, gallops, or rubs. RESPIRATORY: On mechanical ventilation, orally intubated, Breath sounds equal bilaterally. Few Coarse BS GASTROINTESTINAL: Abdomen soft, non-tender, nondistended. OGT, tube feedings infusing. Normoactive bowel sounds MUSCULOSKELETAL: 2+ bilateral edema in B/L upper extremities persists Neuro: Sedated, arousable, moves all 4 extremities on lightening sedation. Urinary Catheter: Yes [employer] insert reason: Measure Accurate Output Date of Removal: Mar 04, 2017 Line: Central Venous Catheter Side: Right A/P Assessment and Plan 1. Acute hypercapnic and hypoxemic respiratory failure. 2. COPD exacerbation. 3. Acute renal failure. 4. Hypernatremia 5. Obstructive sleep apnea and morbid obesity. 6. Ischemic dilated Cardiomyopathy. S/P AICD 03/2015 7. History of coronary artery disease. 8. Gastroesophageal reflux disease. 9. Hypertension. 10. Hyperlipidemia. 11 Pulm edema 12. Acute on chronic systolic and diastolic CHF 13. Pulmonary hypertension 14. Bacteremia Plan: Neuro: On Diprivan and Fentanyl infusion for sedation. Daily sedation vacation when clinically indicated. Monitor neuro status CV: Monitor HR and BP keep MAP>65mmHg. On Lopressor 12.5mg BID for rate control. On aspirin 325 milligrams p.o. daily and Plavix 75 mg p.o. daily - holding starting 03/22 in anticipation of tracheostomy. Prinivil 5mg daily 01/2017 Echo showed EF 40-45%, nl LV diastolic function, No RWMA Cardiology following-Dr. Cole. Pulm: PRVC mode mechanical ventilation: rate 12 tidal volume 600 I time 1.1 second PEEP 10 FiO2 60% Continue with vent support. Tracheostomy in OR by Dr. Kirkland on 03/28 evening Bronchodilators every 4 hours, Solu-Medrol 40 mg IV BID. Pulm-Dr. Lashell Padron CXR: LLL consolidation/Atelectasis CTA chest 03/02 showed no PE, small pleural effusions Flolan inhaled nebulizer treatment stopped 03/21. Heparin GTT held on 03/25 in view of blood-tinged respiratory secretions 03/28 tracheostomy- Dr. Matthew : Monitor renal function Is and Os and avoid nephrotoxins. Electrolytes replacement per protocol. Lasix 40mg daily Decrease Free water 100 ml Q8 on 03/22, monitor sodium level GI: On Protonix 40 mg IV daily for GI prophylaxis. TF(Glucerna 1.5 @45ml/hr. S/p PEG tube placement 03/20 Senna, Colace for bowel regimen, 02/24 KUB abdomen: Minimal non-specific bowel gas dilatation GI is following for anemia and positive Hemoccult. ID: ID following. Stopped antibiotics on 03/23 (Vancomycin, Levaquin) monitor for signs of infections ( Fever, WBC) 03/16 C-diff PCR negative 03/14: BC: NGTD 03/14: Normal resp tiffany, urine cx: No growth 03/09 Repeat Bld cultures-staph Epi, coag negative staph- likely contaminant 03/09 Repeat sputum culture-staph aureus Heme: Monitor CBC. Heparin GTT held on 03/25. Heparin infusion restarted 03/31 . Endo: SSI with Accu-Chek q. 6-hour for glycemic control. GI prophylaxis with Protonix 40 mg BID and DVT prophylaxis with SCDs, and heparin infusion Doppler US UE: 03/14-Thrombus throughout the cephalic veins bilaterally. ? minimal thrombus within the left subclavian vein. Was off Heparin drip as patient had bloody secretions with suctioning ( resolved ) and positive Hemoccult. Heparin resumed (cleared by GI) and subsequently stopped on 03/25 due to blood tinged respiratory secretions, resumed 03/31 Doppler US LE No DVT on 02/27 Dispo: Discussed patient with SCREEN REPAIRER CRUSHER, and Mrs. Doran Palliative care is following. This patient remains critically ill with one or more organ systems which are or may become a threat to life. I have spent in excess of 37 minutes discontinuously in the care and management of this patient. This time is exclusive of procedures, and includes, but is not limited to, evaluation of the patient, review of the medical record, discussions with family, consultants, nursing staff, or respiratory therapy, and documentation in the medical record. Physician Rolanda Maria MD April 01, 2017 14:19
[2017-04-01] MEDS: fentaNYL DRIP 250 ML IV SCH (15:12)
[2017-04-01] MEDS: HEPARIN-D5W INJ 250 ML IV SCH (15:14)
[2017-04-01] MEDS: SODIUM CHLORIDE 0.9% FLUSH 10 ML FLUSH IVF PRN (21:08)
[2017-04-01] MEDS: ATORVASTATIN 40 MG TAB PO SCH (21:08)
[2017-04-01 23:42] LABS: APTT (PATIENT) 32.3 SEC (24.3-30.1)
[2017-04-02] VITALS (19 sets, daily range): BP systolic 110–152; BP diastolic 56–86; PULSE 70–118; RESP 16–22; TEMP 98.5–100.4; O2SAT 96–100
[2017-04-02] MEDS: RESP: ALBUTEROL 2.5 MG/IPRATROPIUM 0.5 MG NEB (PRN) NEB (00:25)
[2017-04-02] MEDS: MIDAZOLAM 100 MG/ML INJ 100 ML IV SCH ×3 (00:32→20:19)
[2017-04-02] MEDS: fentaNYL DRIP 250 ML IV SCH ×3 (03:45→20:19)
[2017-04-02] MEDS: CHLORHEXIDINE GLUCONATE 2 % 1 PACK (2 CLOTHS) TOP SCH (03:46)
[2017-04-02 04:34] LABS: APTT (PATIENT) 36.6 SEC (24.3-30.1)
[2017-04-02 04:35] LABS: HEMATOCRIT 30.6 % (39.0-51.0); MEAN CELL VOLUME 90.9 FL (80.0-100.0); MEAN CORPUSCULAR HEMOGLOBIN 29.5 PG (27.0-34.0); MEAN CORPUSCULAR HGB CONC 32.4 % (32.0-36.0); PLATELET COUNT 156 TH/MM3 (150-450); RED BLOOD COUNT 3.37 MIL/MM3 (4.50-5.90); RED CELL DISTRIBUTION WIDTH 17.9 % (11.6-17.2); REVIEW FLAG FINAL; WHITE BLOOD COUNT 14.3 TH/MM3 (4.0-11.0)
[2017-04-02] MEDS: INSULIN NovoLIN REGULAR SUPPLEMENTAL SCALE SQ SCH ×4 (04:39→22:53)
[2017-04-02 04:54] LABS: BICARBONATE 34.5 MEQ/L (21.0-32.0); MAGNESIUM 2.5 MG/DL (1.5-2.5); POTASSIUM 3.7 MEQ/L (3.5-5.1)
[2017-04-02 04:55] LABS: BLOOD GAS BASE EXCESS 8.1 mmol/L (-2-2); BLOOD GAS CARBOXYHEMOGLOBIN 1.6 % (0-4); BLOOD GAS HCO3 33 mmol/L (22-26); BLOOD GAS METHEMOGLOBIN 1.1 % (0-2); BLOOD GAS O2 HGB SATURATION 93 % (90-100); BLOOD GAS OXYGEN CONTENT 12.7 Vol % (12.0-20.0); BLOOD GAS PCO2 52 mmHg (38-42); BLOOD GAS PO2 85 mmHg (61-120); BLOOD GAS TOTAL HGB 9.6 G/DL (12.0-16.0); TEMP CORR TO 98.6
[2017-04-02 04:56] LABS: CRITICAL VALUE YES; DRAW SITE RT RADIAL; FIO2 60 %; NUMBER OF ARTERIAL PUNCTURES 1; OXYGEN DEVICE VENTILATOR; STAT NO; ULNAR PULSE PRESENT; VENT SETTINGS PRVC12/600/1.1/+8
[2017-04-02] MEDS: FREE WATER G-TUBE SCH ×3 (05:36→20:18)
--- NOTE | 2017-04-02 05:57 | RADRPT ---
EXAM DATE/TIME: 04/02/2017 04:43 [facility] COMPARISON: CHEST SINGLE AP, April 01, 2017, 3:29. INDICATIONS : Shortness of breath, possible pulmonary disease. MEDICAL HISTORY : Hypertension. Chronic obstructive pulmonary disease. Congestive heart failure. Smoker. SURGICAL HISTORY : Pacemaker. CABG. Coronary artery stent. ENCOUNTER: Subsequent ACUITY: 1 month PAIN SCORE: Non-responsive. LOCATION: Bilateral chest FINDINGS: A single portable frontal view the chest shows a left-sided pacing device and tracheostomy tube. Medi an sternotomy wires. Heart small enlarged. Scattered pulmonary infiltrates. This is most pronounced w ithin the medial right lung base. Tiny right effusion. CONCLUSION: No consolidation within the medial right lung base. Bilateral interstitial prominence. Tiny right eff usion. Garrick Hinton Jr., MD on April 02, 2017 at 5:54 Board Certified Radiologist. This report was verified electronically.
[2017-04-02] MEDS: METOPROLOL TARTRATE 25 MG TAB PO SCH ×3 (09:00→20:17)
[2017-04-02] MEDS: HEPARIN-D5W INJ 250 ML IV SCH ×2 (09:10→22:52)
[2017-04-02] MEDS: FUROSEMIDE 40 MG/4 ML VIAL IV PUSH SCH (09:10)
[2017-04-02] MEDS: methylPREDNISolone SOD SUCC 40 MG/1 ML VIAL IV PUSH SCH ×2 (09:11→20:17)
[2017-04-02] MEDS: PANTOPRAZOLE SODIUM 40 MG VIAL IV SCH (09:12)
[2017-04-02] MEDS: CHLORHEXIDINE 0.12% (ORAL KIT) 15 ML CUP MT SCH ×2 (09:12→20:18)
[2017-04-02] MEDS: LISINOPRIL 5 MG TAB PO SCH (09:14)
[2017-04-02] MEDS: SENNOSIDES SYRUP 8.8 MG/5 ML CUP PO SCH (09:14)
[2017-04-02] MEDS: DOCUSATE SODIUM 100 MG/10 ML UDC PO SCH ×2 (09:14→20:17)
[2017-04-02] MEDS: LACTULOSE SYRUP 20 GM/30 ML CUP PO SCH (09:14)
[2017-04-02 13:43] LABS: APTT (PATIENT) 37.1 SEC (24.3-30.1)
[2017-04-02] MEDS ORDERED: LORazepam 2 MG/ML VIAL IV ONE ×2 (15:00→17:00)
--- NOTE | 2017-04-02 15:08 | HHI.HCPN ---
Reason for visit a. To assist with evaluation and management of symptoms including: dyspnea, pain b. To assist medical decision maker(s) with: better understanding of current medical conditions; weighing benefits/burdens of medical treatment options; making medical treatment decisions. . (Sapphire Chen) Subjective/Interval History Palliative care to follow-up for further clarifications of goals of care and emotional support. Patient status 5 days post tracheostomy. Currently on 55% FiO2 and PEEP of 8. Tolerated CPAP trial yesterday for 4 hours. Failed CPAP trial today after 20 minutes. Patient more agitated/restlessness since yesterday, he was placed on Versed drip. Chest x-ray today showing bilateral interstitial prominence and small right effusion. Labs today WBC 14.3, Hgb 9.9 , platelet count 156. Sodium 141, potassium 3.7, BUN/creatinine 22/0.46. Patient slightly febrile with Max temp 100.4. Tachycardic with heart rates in the low 110s. Stable hemodynamically. Met with patient's at bedside. She appears anxious, crying. She tells me that she feels very guilty of patient's current clinical condition as she is still one who elected for aggressive care. Reviewed current clinical status to include fail CPAP trial today and agitation/restlessness. Patient on day number #38 of mechanical ventilation. Reviewed with patient's that patient is at a very high risk for continued decline, further complications and . tearful. I inquired about patient's 6 children. tells me that they are all in [place] and wanting to come to see patient and that she told them no. Encouraged to talk to their children, as this might be a good time for her children to visit patient and be involve with medical decision-making and emotional support to her. appears to be struggling with patient's current clinical condition and likelihood of continue decline. Patient's declined providing palliative care with children's names or contact information at this time. Spiritual services following with for support. . Family/friend interactions See interval note. . (Sapphire Chen) Advance Directives Living Will: Never completed Health Care Surrogate: Never completed Durable Power of Swimming Pool Plasterer Helper: Never completed (Sapphire Chen) Advance Directive Specifics Health Care Surrogate(s): Brooke Doran - [phone] (home), or [phone] (cellvoicemail not set up) Significant change in goals: No code. Continue with current medical management. . (Sapphire Chen) Objective Vital Signs Date Time Temp Pulse Resp B/P Pulse Ox O2 Delivery O2 Flow Rate FiO2 04/02/17 14:00 108 04/02/17 12:50 55 04/02/17 12:27 60 04/02/17 12:00 60 04/02/17 12:00 100.4 118 16 117/56 97 04/02/17 12:00 118 04/02/17 10:50 60 04/02/17 10:45 60 04/02/17 10:25 60 04/02/17 10:00 74 04/02/17 09:36 100 50 04/02/17 08:00 60 04/02/17 08:00 99.7 70 16 110/57 99 04/02/17 08:00 70 04/02/17 06:00 72 04/02/17 05:00 77 04/02/17 04:41 98 50 04/02/17 04:00 90 04/02/17 04:00 98.7 22 110/86 97 04/02/17 04:00 50 04/02/17 03:00 83 04/02/17 02:00 94 04/02/17 00:26 96 50 04/02/17 00:00 98.5 22 127/73 96 04/02/17 00:00 50 04/02/17 00:00 79 04/01/17 22:00 50 04/01/17 22:00 131 04/01/17 20:52 94 50 04/01/17 20:00 97.8 22 153/73 98 04/01/17 20:00 106 04/01/17 20:00 50 04/01/17 18:25 98 50 04/01/17 18:00 114 04/01/17 17:05 98 50 04/01/17 16:00 101 04/01/17 16:00 50 04/01/17 16:00 100.2 101 27 131/74 95 Intake & Output 04/02/17 04/02/17 07:00 19:00 Intake Total 1762 ml Output Total 1200 ml Balance 562 ml IV Total 622 ml Tube Feeding 540 ml Tube Irrigant 600 ml Output Urine Total 1200 ml # Bowel Movements 1 Physical Exam CONSTITUTIONAL/GENERAL: This is an adequately nourished patient, awake, tracking , restless. Not following commands. Not attempting to communicate. TUBES/LINES/DRAINS: PIV's, PEG tube, tracheostomy, cabrera catheter, SKIN: No jaundice, rashes, or lesions. Scatter ecchymoses on upper extremities. Skin temperature appropriate. Diaphoretic. HEAD: Atraumatic. Normocephalic. EYES: Pupils equal and round and reactive. No scleral icterus. No injection or drainage. ENT: Tracheostomy in place. NECK: Trachea midline. Supple, CARDIOVASCULAR: No murmurs, gallops, or rubs. Peripheral pulses symmetric. Edema to upper extremities left hand worsened right hand. RESPIRATORY/CHEST: Symmetric. Coarse breath sounds bilaterally. Symmetric air movement. Remains on vent support via trach. GASTROINTESTINAL: Abdomen soft, round. Positive bowel sounds. GENITOURINARY: Without palpable bladder distension. catheter in place. MUSCULOSKELETAL: Edema in upper extremities. Extremities without clubbing, cyanosis. NEUROLOGICAL: Eyes open, tracking. Not following commands or attempting to communicate during my visit. PSYCHIATRIC: Restless/agitated. . (Sapphire Chen) Diagnostic Tests Laboratory Laboratory Tests Test 03/30/17 03/31/17 03/31/17 04/01/17 23:16 17:21 23:44 03:45 Potassium Level 4.0 MEQ/L 4.2 MEQ/L (3.5-5.1) (3.5-5.1) Phosphorus Level 2.8 MG/DL 3.4 MG/DL (2.5-4.9) (2.5-4.9) Blood Gas Puncture Site RT RADIAL Blood Gas Patient Temperature 98.6 Blood Gas HCO3 37 mmol/L (22-26) Blood Gas Base Excess 12.2 mmol/L (-2-2) Blood Gas Oxygen Saturation 95 % (90-100) Arterial Blood pH 7.45 (7.380-7.420) Arterial Blood Partial 54 mmHg (38-42) Pressure CO2 Arterial Blood Partial 108 mmHg Pressure O2 (61-120) Arterial Blood Oxygen Content 13.2 Vol % (12.0-20.0) Arterial Blood 2.1 % (0-4) Carboxyhemoglobin Arterial Blood Methemoglobin 1.1 % (0-2) Blood Gas Hemoglobin 9.8 G/DL (12.0-16.0) Oxygen Delivery Device VENTILATOR Blood Gas Ventilator Setting SEE COMMENTS Blood Gas Inspired Oxygen 50 % Activated Partial 29.4 SEC Thromboplast Time (24.3-30.1) White Blood Count 12.8 TH/MM3 (4.0-11.0) Red Blood Count 3.44 MIL/MM3 (4.50-5.90) Hemoglobin 9.9 GM/DL (13.0-17.0) Hematocrit 31.6 % (39.0-51.0) Mean Corpuscular Volume 91.9 FL (80.0-100.0) Mean Corpuscular Hemoglobin 28.9 PG (27.0-34.0) Mean Corpuscular Hemoglobin 31.4 % Concent (32.0-36.0) Red Cell Distribution Width 17.4 % (11.6-17.2) Platelet Count 128 TH/MM3 (150-450) Mean Platelet Volume 8.8 FL (7.0-11.0) Sodium Level 142 MEQ/L (136-145) Chloride Level 99 MEQ/L (98-107) Carbon Dioxide Level 38.5 MEQ/L (21.0-32.0) Anion Gap 5 MEQ/L (5-15) Blood Urea Nitrogen 20 MG/DL (7-18) Creatinine 0.35 MG/DL (0.60-1.30) Estimat Glomerular Filtration 250 ML/MIN Rate (>89) Random Glucose 135 MG/DL (74-106) Calcium Level 9.3 MG/DL (8.5-10.1) Magnesium Level 2.6 MG/DL (1.5-2.5) Test 04/01/17 04/01/17 04/01/17 04/02/17 07:22 13:40 23:02 03:44 Activated Partial 35.2 SEC 32.8 SEC 32.3 SEC 36.6 SEC Thromboplast Time (24.3-30.1) (24.3-30.1) (24.3-30.1) (24.3-30.1) White Blood Count 14.3 TH/MM3 (4.0-11.0) Red Blood Count 3.37 MIL/MM3 (4.50-5.90) Hemoglobin 9.9 GM/DL (13.0-17.0) Hematocrit 30.6 % (39.0-51.0) Mean Corpuscular Volume 90.9 FL (80.0-100.0) Mean Corpuscular Hemoglobin 29.5 PG (27.0-34.0) Mean Corpuscular Hemoglobin 32.4 % Concent (32.0-36.0) Red Cell Distribution Width 17.9 % (11.6-17.2) Platelet Count 156 TH/MM3 (150-450) Mean Platelet Volume 8.6 FL (7.0-11.0) Sodium Level 141 MEQ/L (136-145) Potassium Level 3.7 MEQ/L (3.5-5.1) Chloride Level 100 MEQ/L (98-107) Carbon Dioxide Level 34.5 MEQ/L (21.0-32.0) Anion Gap 7 MEQ/L (5-15) Blood Urea Nitrogen 22 MG/DL (7-18) Creatinine 0.46 MG/DL (0.60-1.30) Estimat Glomerular Filtration 182 ML/MIN Rate (>89) Random Glucose 133 MG/DL (74-106) Calcium Level 9.3 MG/DL (8.5-10.1) Phosphorus Level 3.2 MG/DL (2.5-4.9) Magnesium Level 2.5 MG/DL (1.5-2.5) Test 04/02/17 04/02/17 04:45 12:58 Blood Gas Puncture Site RT RADIAL Blood Gas Patient Temperature 98.6 Blood Gas HCO3 33 mmol/L (22-26) Blood Gas Base Excess 8.1 mmol/L (-2-2) Blood Gas Oxygen Saturation 93 % (90-100) Arterial Blood pH 7.42 (7.380-7.420) Arterial Blood Partial 52 mmHg (38-42) Pressure CO2 Arterial Blood Partial 85 mmHg Pressure O2 (61-120) Arterial Blood Oxygen Content 12.7 Vol % (12.0-20.0) Arterial Blood 1.6 % (0-4) Carboxyhemoglobin Arterial Blood Methemoglobin 1.1 % (0-2) Blood Gas Hemoglobin 9.6 G/DL (12.0-16.0) Oxygen Delivery Device VENTILATOR Blood Gas Ventilator Setting PRVC12/600/1.1/+8 Blood Gas Inspired Oxygen 60 % Activated Partial 37.1 SEC Thromboplast Time (24.3-30.1) (Sapphire Chen) Result Diagram: 04/02/17 0344 04/02/17 0344 Imaging Last Impressions Chest X-Ray 04/02/17 0600 Signed Impressions: Service Date/Time: Sunday, April 02, 2017 04:43 - CONCLUSION: No consolidation within the medial right lung base. Bilateral interstitial prominence. Tiny right effusion. Garrick Hinton Jr., MD Upper Extremity Ultrasound 03/14/17 0000 Signed Impressions: Service Date/Time: Tuesday, March 14, 2017 18:49 - CONCLUSION: 1. Thrombus throughout the cephalic veins bilaterally. These are superficial venous structures. 2. Questionable minimal thrombus within the left subclavian vein. Garrick Hinton Jr., MD CT Angiography 03/02/17 1206 Signed Impressions: Service Date/Time: Thursday, March 02, 2017 13:46 - CONCLUSION: 1. No pulmonary embolus identified. 2. Small bilateral effusions with significant dependent atelectasis bilaterally. Riley Bob MD Lower Extremity Ultrasound 02/27/17 0000 Signed Impressions: Service Date/Time: Monday, February 27, 2017 08:31 - CONCLUSION: Normal examination. Nick Farrell MD Abdomen X-Ray 02/24/17 0000 Signed Impressions: Service Date/Time: Friday, February 24, 2017 10:43 - CONCLUSION: 1. Nasogastric tube just across the GE junction. 2. Minimal nonspecific bowel gas dilatation. Artur Bob MD FACR Procedures * Central line placement * PEG tube placement * Tracheostomy 03/28/17 . (Sapphire Chen) Assessment and Plan Disease Oriented Problem List: (1) Acute respiratory failure (2) COPD with acute exacerbation Comment: Currently intubated with FiO2 of 55%. Failed CPAP trial today. (3) Ischemic dilated cardiomyopathy Comment: EF 20% (4) Atrial flutter Comment: Has PPM with AICD (5) COPD (chronic obstructive pulmonary disease) Symptom Scale: (1) Pain 0-10 Scale: Unable to quantify Comment: History of arthritis with shoulder ORIF. Other sources of pain include prolonged bedbound status; cabrera catheter; venous access lines; tracheostomy . (2) Dyspnea 0-10 Scale: Unable to quantify Comment: COPD exacerbation, now vent dependent . 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 Important Contacts Brooke Doran - [phone] (home), or [phone] (cellvoicemail not set up) . Prognosis Patient may survive ICU and hospital, but watermaster prognosis is poor given underlying lung status and severity of his cardiomyopathy. If he does survive the hospitalization, there is a high probability of recurrent hospitalizations and fairly dependent functional status between. Hopefully, he will have a greater chance of weaning now that his has trach in place. . Code Status: No Code Plan * CODE STATUS: No code. DNR. * HEALTHCARE DECISION-MAKER: Patient appears incapacitated at this time secondary to clinical condition. Unclear if he will regain capacity. Healthcare proxy is Brooke. * GOALS OF CARE: Goals of care at this point is to allow time for clinical improvement, likely to transition patient to comfort-directed care should patient's condition does not improve/unable to wean off vent support or condition worsen. exhibiting high levels of anxiety, frequently voicing guilt at patient's current medical condition. Long conversation today with regarding support needed from her family. Patient and have 6 children together, they are all in [place]. tells me that her children would like to see their father but she is not allowing them to do so. Reviewed with that maybe this is the right time for them to come to see patient and to provide much-needed emotional support and guidance during this very difficult time. declined providing palliative care with children's name or contact information. * SYMPTOMS: = Shortness of breath, currently vent dependent at this time. FiO2 55%. Failed CPAP trial today. Hx of severe COPD and CAD with cardiomyopathy status post PPM/AICD with an EF of 20%. ==Debility, secondary to prolonged hospitalization. Likely to continue to worsen. == Pain, secondary to prolonged bedrest, trach. Currently on fentanyl drip. * Case discussed with bedside RN. * Ongoing emotional support and active listening provided. Spiritual care following. * Palliative care contact information has been provided to patient's . Encouraged to provide my contact information to their children if they have any questions. * Palliative care will continue to follow-up patient and family for further clarifications of goals of care as patient's clinical course continues to evolve. . (Sapphire Chen) Time Spent Total Floor Time (mins): 45 (Total time to include review medical records, physical exam, local conversation with patient's at bedside and case discussion with bedside RN.) >50% Counseling/Coord of Care: Yes (Sapphire Chen) Attestation To help prompt me to consider important information that might be impacting today's encounter and assessment, information from prior notes written by myself or my colleagues may have been "brought forward" into today's note. My signature on this note, however, is an attestation that I personally performed the exam, history, and/or decision-making noted today, and, unless otherwise indicated, the interactions with patient, family, and staff as well as the review of records all occurred today. I also attest that the listed assessment and stated plan reflect my best clinical judgment today based on the combination of historical information, prior notes, and today's exam/ interactions. When time spent is documented, it refers only to time spent today by the signer, or if indicated, combined time spent today by collaborating physician/nurse practitioner. (Sapphire Chen) Collaborating MD Comments . Chart reviewed. Cased discussed with palliative care TENTER FRAME BACK TENDER. Above TENTER FRAME BACK TENDER note reviewed and I concur. . (Ishmael Wiley MD) Sapphire Chen April 02, 2017 15:08 Ishmael Wiley MD April 23, 2017 15:58
[2017-04-02] MEDS: SODIUM CHLORIDE 0.9% FLUSH 10 ML FLUSH IVF PRN (15:11)
--- NOTE | 2017-04-02 15:52 | HHI.CCPN ---
Subjective Remarks/Hospital Course The patient is a 66-year-old male with past medical history of COPD, cardiomyopathy, hypertension, gastroesophageal reflux disease, hyperlipidemia and coronary artery disease. The patient presented to [facility] ED with a 2-week history of progressive worsening shortness of breath. On arrival to the ED he was initially placed on a non-rebreather mask and ABG was performed which showed acute hypercapnic respiratory failure with a pH of 7.14, CO2 121, pAO2 141, bicarb 40, sats 93%. His laboratory data significant for hyperkalemia with potassium level 6.0 and acute renal failure with a BUN of 43 and creatinine 2.07 respectively. The chest x-ray showed cardiomegaly and findings of vascular congestion without overt failure. In the ED the patient was intubated with etomidate and rocuronium and placed on full mechanical ventilation. In addition, he is scheduled to receive 10 units IV regular insulin, 1 amp of D50 and calcium gluconate for hyperkalemia. He received cefepime, azithromycin, Solu-Medrol 125 milligrams IV push and bronchodilator treatment. When seen the patient is on Diprivan infusion for sedation and full mechanical ventilation. Per the patient is not on any oxygen at home and he occasionally smokes cigarettes. 02/24 Patient is intubated and sedated with Diprivan and Fentanyl. Switched to PC/ AC with RR 12, IP:24, IT:1.06, PEEP: 8 and FIO2 100%. CXR this morning showed interval development of bilateral perihilar and lower lung zone airspace opacity he was given Lasix 60mg total overnight. 02/25 Patient remains sedated and intubated with Diprivan and Fentanyl. Afebrile.On PC/AC with RR 12, IP:22, IT:1.10, PEEP:10, FIO2 70%. Afebrile. Renal function worse today with Cr: 1.90 from 1.72 UO: 1150ml in 24 hrs 02/26 No acute events overnight. Sedated with Fentanyl and Diprivan and intubated. Afebrile. His O2 requirements is less now on PC/AC with IP:22, IT: 1.1 with PEEP: 10 and FIO2 55%. Renal function improving with Cr: 1.42 today from 1.90. Tolerating tube feeds. 02/27 Patient remains sedated with Diprivan and Fentanyl infusion and intubated. Afebrile. 02/28: Remains sedated, orally intubated on mechanical ventilation. Being diuresed with Bumex. Tolerating tube feeds. 03/01: Remains sedated, orally intubated on mechanical ventilation. Being diabetes. Remains on PEEP of 10 and FiO2 60% 03/02 Patient remains sedated with Diprivan and Fentanyl and intubated. On PC/AC with PEEP: 10 and FIO2 80% overnight and sats 93-94%. Afebrile. 03/03: The patient remains on high respiratory requirements PEEP of 10, and FiO2 70%. 03/04: Tmax 99.9. Overnight the patient was noted to have desaturations the patient received a bolus of midazolam and fentanyl for ventilator dyssynchrony. The patient was redosed with Diamox with approximately 2.5 L diuresis in the last 12 hours. The patient continues on an FiO2 of 70% with PEEP of 10 to maintain an O2 sat of 90%. 03/05: Afebrile. Patient's FiO2 remains at 60% to maintain O2sat ranging in 92% . Future plans for tracheostomy discussed with when ventilator requirements are decreased. Patient currently is on a PEEP of 10. Patient receiving multiple doses of diuretics chest x-ray still showing increased vascular congestion. Cardiology following metalazone added to medication regimen per cardiology for diuresis. 03/06: Patient's O2 requirements were increased overnight to FiO2 of 90%. The patient's FiO2 has been decreased now currently to 70% O2 sat is 90% ABG is pending. The patient's diuresis effective, 1 kg weight loss in 24 hours. 03/07: The patient continues to have effective diuresis. The patient's O2 requirements currently FiO2 is 70% to maintain a sat of 90-91%. Discussion with Ms. London yesterday, she would like to discuss with palliative team goals of care. Palliative care consult initiated. 03/08: The patient was less responsive to diuretics today, positive weight balance last 24 hours. The patient was placed on a Lasix infusion, noted occasional PVCs on telemetry. Patient potassium repletion ongoing, schedule potassium PO intake increased to 50 mEq twice a day. Free water flushes placed on hold, was sodium level 145 will continue to monitor. Chest x-ray shows slight improvement. Continued management of ventilator settings ARDS protocol, maintaining PaO2 60 or greater and adjusting vent settings based on PaO2. Sedation vacation attempted today by MANAGER SOURCING, GCS 11T. Noted WBC elevation today ID consulted. 03/09: Today the patient was noted to have increasing FiO2 requirements with a PaO2 of 61. FiO2 was increased to 100%, PEEP was gradually increased to 12, then 14. The patient subsequently became hypotensive, likely due to increasing PEEP, but chest x-ray also obtained to rule out pneumothorax which was clear. The patient subsequently was laced on phenylephrine low-dose 20 mcgs which was eventually weaned off. The patient was placed on PEEP at 7 and FiO2 of 100%, sedation was weaned to lower dose. Palliative care also discussed with goals of care and the patient was made DNR. 03/10 noted creatinine elevation last night, Lasix discontinued. Dobutamine initiated per cardiology this morning. The patient continues to have high requirements on a PEEP of 8 and FiO2 of 100% his PaO2 49.2. PEEP has been increased plan to initiate Flolan. 03/11: Tmax 100.5. FRANK resolved with dobutamine infusion, heart rate 110. Microbiology report bacteremia gram-positive cocci and sputum. Patient currently on Diflucan. Will begin Linezolid in the setting of recent FRANK and oliguria, and await further recommendations from infectious disease design and sales consultant. Respiratory status deteriorating. The patient was placed on Flolan last night PaO2 67. Patient remains on a PEEP of 10, unable to advance secondary to hypotension. 03/12 Patient remains sedated with Diprivan, Fentanyl and intubated. On Dobutamine 2.5 mics and Flolan. Remains On PC/AC with RR 12, IP:22, IT:1.20, PEEP;10 and FIo2 90%. Afebrile. 03/13 Patient is sedated with Diprivan and Fentanyl and intubated. On PC/AC with PEEP:12, FIO2 80%. Tmax 101.7 Remains on Dobutamine and Flolan. 03/14 Patient remains sedated and intubated. On PC/AC with PEEP:12 and FIO2 100% . T: 101.5 last night. On Flolan off Dobutamine. 03/15 No acute events overnight. Sedated with Diprivan and Fentanyl. On PC/AC with PEEP: 12, FIO2 down to 70%. Tmax 101.6. On Flolan nebs. 03/16 Patient remains sedated and intubated On PC/AC with decrease in FIO2 requirements down to 65% FIO2 with PEEP: 12. Tmax 101.4. On Heparin drip. 03/17 Patient remains sedated and intubated. T: 99.7, heparin drip turned off as patient had bloody secretions with suctioning and Hemoccult was positive. 03/18 No acute events overnight. Remains sedated and intubated. Tmax 102.8. Off heparin drip patient has minimal bloody secretions. 03/19 Patient remains sedated with Diprivan and Fentanyl intubated. Afebrile. 03/20 No acute events overnight. Sedated and intubated. Tmax : 100.8. NPO for EGD and PEG tube placement today. 03/21 remains sedated, orally intubated on mechanical ventilation. Flolan inhaled stopped today. Switched to PRVC mode mechanical ventilation from PC/AC. 03/22:Remains sedated, orally intubated on mechanical ventilation. Deep decreased to +10, FiO2 55%. 03/23: Arouses on lightening sedation, moving all 4 extremities. Orally intubated on mechanical ventilation. On PEEP of +10, FiO2 50% 03/24: Sedated, arousable, orally intubated on mechanical ventilation. PEEP +10 , FiO2 60% today. 03/25: Remains sedated, orally intubated on mechanical ventilation. PEEP of +10 , FiO2 50%. Minimal blood-tinged respiratory secretions noted. Heparin drip stopped 03/25 03/26: Remains sedated, orally intubated on mechanical ventilation. PEEP remains at +10, FiO2 60%. Discussed with Dr. Bal, doubt patient can tolerate bronchoscopies hence he is planning to do tracheostomy in the OR. 03/27: Sedated, arousable, remains orally intubated on mechanical ventilation. Awaiting tracheostomy in the OR which is scheduled for tomorrow. 03/28: Sedated, arousable, remains orally intubated on mechanical ventilation at the time of my evaluation in the morning. Subsequently taken for tracheostomy 03/29: Afebrile. Patient remains sedated and intubated. He is status post tracheostomy. PEEP remains at 10,FIO2 60%. 03/30 Sedated, tracheostomy postop day 2, patient continues to have high ventilatory requirements PEEP of 10, and able to perform CPAP trials. Previously patient was noted to be bleeding from endotracheal to prior to tracheostomy. Will initiate heparin subcutaneous DVT prophylaxis, and closely monitor before beginning full anticoagulation of heparin. 03/31: Afebrile. Will begin heparin infusion today, and closely monitor for signs of bleeding. The patient was on subcutaneous heparin yesterday without any evidence of bleeding. The patient remains on a PEEP of 10 with high O2 requirements, continue attempts at weaning. 04/01: The patient was started on full anticoagulation last evening, no evidence of bleeding, remains therapeutic. FiO2 was weaned to 50%. CPAP trials are underway. Chest x-ray slightly improved today. 04/02: The patient tolerated CPAP trials for approximately 4 hours yesterday. Today CPAP trials attempted, unsuccessful. The patient continues on heparin infusion and Versed and fentanyl to maintain ventilator synchrony. Objective Vital Signs Date Time Temp Pulse Resp B/P Pulse Ox O2 Delivery O2 Flow Rate FiO2 04/02/17 14:00 108 04/02/17 12:50 55 04/02/17 12:00 100.4 16 117/56 97 Intake and Output 04/01/17 04/01/17 04/02/17 08:00 16:00 00:00 Intake Total 721 ml 1110 ml 717 ml Output Total 250 ml 1500 ml 800 ml Balance 471 ml -390 ml -83 ml Result Diagram: 04/02/17 0344 04/02/17 0344 Other Results Laboratory Tests Test 04/02/17 04:45 Blood Gas Puncture Site RT RADIAL Blood Gas Patient Temperature 98.6 Blood Gas HCO3 33 mmol/L (22-26) Blood Gas Base Excess 8.1 mmol/L (-2-2) Blood Gas Oxygen Saturation 93 % (90-100) Arterial Blood pH 7.42 (7.380-7.420) Arterial Blood Partial 52 mmHg (38-42) Pressure CO2 Arterial Blood Partial 85 mmHg Pressure O2 (61-120) Arterial Blood Oxygen Content 12.7 Vol % (12.0-20.0) Arterial Blood 1.6 % (0-4) Carboxyhemoglobin Arterial Blood Methemoglobin 1.1 % (0-2) Blood Gas Hemoglobin 9.6 G/DL (12.0-16.0) Oxygen Delivery Device VENTILATOR Blood Gas Ventilator Setting PRVC12/600/1.1/+8 Blood Gas Inspired Oxygen 60 % Imaging Last Impressions Chest X-Ray 04/01/17 0600 Signed Impressions: Service Date/Time: Saturday, April 01, 2017 03:29 - CONCLUSION: Cardiomegaly with interstitial edema, slightly improved. Fernando Mack MD Upper Extremity Ultrasound 03/14/17 0000 Signed Impressions: Service Date/Time: Tuesday, March 14, 2017 18:49 - CONCLUSION: 1. Thrombus throughout the cephalic veins bilaterally. These are superficial venous structures. 2. Questionable minimal thrombus within the left subclavian vein. Garrick Hinton Jr., MD CT Angiography 03/02/17 1206 Signed Impressions: Service Date/Time: Thursday, March 02, 2017 13:46 - CONCLUSION: 1. No pulmonary embolus identified. 2. Small bilateral effusions with significant dependent atelectasis bilaterally. Riley Bob MD Lower Extremity Ultrasound 02/27/17 Signed Impressions: Service Date/Time: Monday, February 27, 2017 08:31 - CONCLUSION: Normal examination. Nick Farrell MD Abdomen X-Ray 02/24/17 Signed Impressions: Service Date/Time: Friday, February 24, 2017 10:43 - CONCLUSION: 1. Nasogastric tube just across the GE junction. 2. Minimal nonspecific bowel gas dilatation. Artur Bob MD FACR Last Impressions Chest X-Ray 03/30/17 0600 Signed Impressions: Service Date/Time: Thursday, March 30, 2017 03:35 - CONCLUSION: Cardiomegaly with interstitial edema. Status post CABG. Fernando Mack MD Upper Extremity Ultrasound 03/14/17 0000 Signed Impressions: Service Date/Time: Tuesday, March 14, 2017 18:49 - CONCLUSION: 1. Thrombus throughout the cephalic veins bilaterally. These are superficial venous structures. 2. Questionable minimal thrombus within the left subclavian vein. Garrick Hinton Jr., MD CT Angiography 03/02/17 1206 Signed Impressions: Service Date/Time: Thursday, March 02, 2017 13:46 - CONCLUSION: 1. No pulmonary embolus identified. 2. Small bilateral effusions with significant dependent atelectasis bilaterally. Riley Bob MD Lower Extremity Ultrasound 02/27/17 Signed Impressions: Service Date/Time: Monday, February 27, 2017 08:31 - CONCLUSION: Normal examination. Nick Farrell MD Abdomen X-Ray 02/24/17 0000 Signed Impressions: Service Date/Time: Friday, February 24, 2017 10:43 - CONCLUSION: 1. Nasogastric tube just across the GE junction. 2. Minimal nonspecific bowel gas dilatation. Artur Bob MD FACR Last Impressions Chest X-Ray 03/18/17 0000 Signed Impressions: Service Date/Time: Saturday, March 18, 2017 08:43 - CONCLUSION: Left lower lobe consolidation/atelectasis and likely some effusion. Nick Menchaca MD Upper Extremity Ultrasound 03/14/17 0000 Signed Impressions: Service Date/Time: Tuesday, March 14, 2017 18:49 - CONCLUSION: 1. Thrombus throughout the cephalic veins bilaterally. These are superficial venous structures. 2. Questionable minimal thrombus within the left subclavian vein. Garrick Hinton Jr., MD CT Angiography 03/02/17 1206 Signed Impressions: Service Date/Time: Thursday, March 02, 2017 13:46 - CONCLUSION: 1. No pulmonary embolus identified. 2. Small bilateral effusions with significant dependent atelectasis bilaterally. Riley Bob MD Lower Extremity Ultrasound 02/27/17 0000 Signed Impressions: Service Date/Time: Monday, February 27, 2017 08:31 - CONCLUSION: Normal examination. Nick Farrell MD Abdomen X-Ray 02/24/17 0000 Signed Impressions: Service Date/Time: Friday, February 24, 2017 10:43 - CONCLUSION: 1. Nasogastric tube just across the GE junction. 2. Minimal nonspecific bowel gas dilatation. Artur Bob MD FACR Objective Remarks GENERAL: Patient is 66 yo obese male sedated SKIN: Warm and dry. HEAD: Normocephalic. EYES: No scleral icterus. No injection or drainage. NECK: Supple, trachea midline. No JVD or lymphadenopathy. Tracheostomy in situ no erythema or drainage noted. Sutures in situ CARDIOVASCULAR:Tachycardic without murmurs, gallops, or rubs. RESPIRATORY: On mechanical ventilation, orally intubated, Breath sounds equal bilaterally. Few Coarse BS GASTROINTESTINAL: Abdomen soft, non-tender, nondistended. Normoactive bowel sounds MUSCULOSKELETAL: 2+ bilateral edema in B/L upper extremities Neuro: Sedated, arousable, moves all 4 extremities on lightening sedation. Urinary Catheter: Yes Date of Removal: Mar 04, 2017 Line: Central Venous Catheter Side: Right A/P Assessment and Plan 1. Acute hypercapnic and hypoxemic respiratory failure. 2. COPD exacerbation. 3. Acute renal failure. 4. Hypernatremia 5. Obstructive sleep apnea and morbid obesity. 6. Ischemic dilated Cardiomyopathy. S/P AICD 03/2015 7. History of coronary artery disease. 8. Gastroesophageal reflux disease. 9. Hypertension. 10. Hyperlipidemia. 11 Pulm edema 12. Acute on chronic systolic and diastolic CHF 13. Pulmonary hypertension 14. Bacteremia Plan: Neuro: On Versed and Fentanyl infusion for sedation. Daily sedation vacation Monitor neuro status CV: Monitor HR and BP keep MAP>65mmHg. On Lopressor 12.5mg BID for rate control. On aspirin 325 milligrams p.o. daily and Plavix 75 mg p.o. daily - holding starting 03/22 in anticipation of tracheostomy. Prinivil 5mg daily 01/2017 Echo showed EF 40-45%, nl LV diastolic function, No RWMA Cardiology following-Dr. Cole. Pulm: PRVC mode mechanical ventilation: rate 12 tidal volume 600 I time 1.1 second PEEP 10 FiO2 60% Continue with vent support. Tracheostomy in OR by Dr. Kirkland on 03/28 evening Bronchodilators every 4 hours, Solu-Medrol 40 mg IV BID. Pulm-Dr. Lashell Padron CXR: LLL consolidation/Atelectasis CTA chest 03/02 showed no PE, small pleural effusions Flolan inhaled nebulizer treatment stopped 03/21. Heparin GTT held on 03/25 in view of blood-tinged respiratory secretions 03/28 tracheostomy- Dr. Matthew, planned suture removal 04/04 : Monitor renal function Is and Os and avoid nephrotoxins. Electrolytes replacement per protocol. Lasix 40mg daily Decrease Free water 100 ml Q8 on 03/22, monitor sodium level GI: On Protonix 40 mg IV daily for GI prophylaxis. TF(Glucerna 1.5 @45ml/hr. S/P PEG tube placement 03/20 Senna, Colace for bowel regimen, 02/24 KUB abdomen: Minimal non-specific bowel gas dilatation GI is following for anemia and positive Hemoccult. ID: ID following- Dr. Young. Stopped antibiotics on 03/23 (Vancomycin, Levaquin) monitor for signs of infections ( Fever, WBC) 03/16 C-diff PCR negative 03/14: BC: NGTD 03/14: Normal resp tiffany, urine cx: No growth 03/09 Repeat Bld cultures-staph Epi, coag negative staph- likely contaminant 03/09 Repeat sputum culture-staph aureus Heme: Monitor CBC. Heparin GTT held on 03/25. Heparin infusion restarted 03/31 . Endo: SSI with Accu-Chek q. 6-hour for glycemic control. GI prophylaxis with Protonix 40 mg BID and DVT prophylaxis with SCDs, and heparin infusion Doppler US UE: 03/14-Thrombus throughout the cephalic veins bilaterally. ? minimal thrombus within the left subclavian vein. Was off Heparin drip as patient had bloody secretions with suctioning ( resolved ) and positive Hemoccult. Heparin resumed (cleared by GI) and subsequently stopped on 03/25 due to blood tinged respiratory secretions, resumed 03/31 Doppler US LE No DVT on 02/27 Dispo: Discussed patient with MANAGER SOURCING, Palliative care is following. This patient remains critically ill with one or more organ systems which are or may become a threat to life. I have spent in excess of 33 minutes discontinuously in the care and management of this patient. This time is exclusive of procedures, and includes, but is not limited to, evaluation of the patient, review of the medical record, discussions with family, consultants, nursing staff, or respiratory therapy, and documentation in the medical record. Physician Rolanda Maria MD April 02, 2017 15:52
[2017-04-02 18:08] LABS: HEMATOCRIT 30.6 % (39.0-51.0); MEAN CORPUSCULAR HEMOGLOBIN 28.6 PG (27.0-34.0); MEAN CORPUSCULAR HGB CONC 31.5 % (32.0-36.0); PLATELET COUNT 165 TH/MM3 (150-450); RED BLOOD COUNT 3.37 MIL/MM3 (4.50-5.90); RED CELL DISTRIBUTION WIDTH 17.2 % (11.6-17.2); REVIEW FLAG FINAL
--- NOTE | 2017-04-02 19:18 | HHI.PR ---
Subjective Remarks Sedated and on the vent at 50 % FIO2, and PEEP 5 cm. Trach site OK. On Diprivan/Fentanyl/. No fever. Output was good. Objective Vital Signs Date Time Temp Pulse Resp B/P Pulse Ox O2 Delivery O2 Flow Rate FiO2 04/02/17 18:00 80 04/02/17 17:38 99 55 04/02/17 16:00 100.4 97 16 152/69 99 04/02/17 16:00 55 04/02/17 16:00 97 04/02/17 14:00 108 04/02/17 12:50 55 04/02/17 12:27 60 04/02/17 12:00 60 04/02/17 12:00 100.4 118 16 117/56 97 04/02/17 12:00 118 04/02/17 10:50 60 04/02/17 10:45 60 04/02/17 10:25 60 04/02/17 10:00 74 04/02/17 09:36 100 50 04/02/17 08:00 60 04/02/17 08:00 99.7 70 16 110/57 99 04/02/17 08:00 70 04/02/17 06:00 72 04/02/17 05:00 77 04/02/17 04:41 98 50 04/02/17 04:00 90 04/02/17 04:00 98.7 22 110/86 97 04/02/17 04:00 50 04/02/17 03:00 83 04/02/17 02:00 94 04/02/17 00:26 96 50 04/02/17 00:00 98.5 22 127/73 96 04/02/17 00:00 50 04/02/17 00:00 79 04/01/17 22:00 50 04/01/17 22:00 131 04/01/17 20:52 94 50 04/01/17 20:00 97.8 22 153/73 98 04/01/17 20:00 106 04/01/17 20:00 50 I/O 04/01/17 04/01/17 04/01/17 04/02/17 04/02/17 04/02/17 07:00 15:00 23:00 07:00 15:00 23:00 Intake Total 721 ml 1110 ml 1762 ml 1501 ml Output Total 250 ml 1500 ml 1200 ml 1425 ml Balance 471 ml -390 ml 562 ml 76 ml IV Total 277 ml 304 ml 622 ml 319 ml Tube Feeding 344 ml 406 ml 540 ml 1182 ml Tube Irrigant 600 ml Other 100 ml 400 ml Output Urine Total 250 ml 1500 ml 1200 ml 1425 ml Stool Total 0 ml # Bowel Movements 1 1 1 Result Diagram: 04/02/17 1722 04/02/17 0344 Objective Remarks PHYSICAL EXAMINATION GENERAL: This moderately obese elderly man is sedated, assisting the ventilator. HEENT: Head normocephalic. Pupils are reactive. Opens eyes. NECK: No bruits or thyroid enlargement. CHEST: Equal movements with diminished breath sounds at the bases with Bi basilar crackles. HEART: The heart sounds are regular, S1 and S2. No murmur. ABDOMEN: Soft, obese, without masses. No organomegaly. Bowel sounds are faint. EXTREMITIES: No Edema with decreased pulses . NEUROLOGIC: Reflexes 1 +. Muscle wasting. SKIN: Warm and dry. Assessment and Plan Assessment and Plan IMPRESSION 1. Hypercapnic respiratory failure and hypoxemic respiratory failure. 2. COPD with chronic bronchitis and acute exacerbation. 3. Congestive heart failure. 4. Cardiomyopathy with ischemic heart disease. 5. Hypertension and hyperlipidemia. 6. Possible obstructive sleep apnea. 7. pulmonary HTN. Plan : 1. Wean O2 to keep sat >92. 2. Wean sedation. 3. BMP, CXR ,CBC. 4. Tube feeds at 50 CC. 5. Cont daily Lasix 40 mg. 6. CPAP trial daily. 7. Solumedrol 20 mg bid. 8. PT evaluation Bri Stout MD April 02, 2017 19:18
[2017-04-02] MEDS: ATORVASTATIN 40 MG TAB PO SCH (20:17)
[2017-04-02 21:15] LABS: APTT (PATIENT) 43.6 SEC (24.3-30.1)
[2017-04-03] VITALS (23 sets, daily range): BP systolic 100–126; BP diastolic 55–78; PULSE 76–102; RESP 3–25; TEMP 98.3–99.8; O2SAT 91–98
[2017-04-03 03:55] LABS: AUTOMATED NEUTROPHIL # 9.4 TH/MM3 (1.8-7.7); BASOPHIL # 0.1 TH/MM3 (0-0.2); BASOPHIL % 0.6 % (0.0-2.0); EOSINOPHIL % 0.4 % (0.0-4.0); HEMATOCRIT 31.1 % (39.0-51.0); LYMPH % 9.5 % (9.0-44.0); LYMPHOCYTE # 1.1 TH/MM3 (1.0-4.8); MEAN CELL VOLUME 91.1 FL (80.0-100.0); MEAN CORPUSCULAR HEMOGLOBIN 29.1 PG (27.0-34.0); MEAN CORPUSCULAR HGB CONC 31.9 % (32.0-36.0); MONO % 5.8 % (0.0-8.0); NEUT % 83.7 % (16.0-70.0); PLATELET COUNT 152 TH/MM3 (150-450); RED BLOOD COUNT 3.41 MIL/MM3 (4.50-5.90); RED CELL DISTRIBUTION WIDTH 17.9 % (11.6-17.2); WHITE BLOOD COUNT 11.3 TH/MM3 (4.0-11.0)
[2017-04-03] MEDS: CHLORHEXIDINE GLUCONATE 2 % 1 PACK (2 CLOTHS) TOP SCH (04:00)
[2017-04-03 04:01] LABS: HEMO FLAGS AUTO DIFF
[2017-04-03 04:04] LABS: APTT (PATIENT) 43.6 SEC (24.3-30.1)
[2017-04-03] MEDS: MIDAZOLAM 100 MG/ML INJ 100 ML IV SCH ×2 (04:05→16:40)
[2017-04-03] MEDS: fentaNYL DRIP 250 ML IV SCH ×2 (04:05→16:40)
[2017-04-03 04:17] LABS: BICARBONATE 32.2 MEQ/L (21.0-32.0); POTASSIUM 3.7 MEQ/L (3.5-5.1)
[2017-04-03] MEDS: INSULIN NovoLIN REGULAR SUPPLEMENTAL SCALE SQ SCH ×4 (05:00→23:00)
[2017-04-03] MEDS: FREE WATER G-TUBE SCH ×3 (05:25→20:30)
[2017-04-03 08:11] LABS: BANDS 1 % (0-6); BASOPHILS 1 % (0-2); EOSINOPHILS 1 % (0-4); METAMYELOCYTES 1 % (0-1); MYELOCYTES 5 % (0-0); NEUTROPHIL # MANUAL DIFF 9.6 TH/MM3 (1.8-7.7); POLYS (SEG NEUTROPHILS) 78 % (16-70); WBC DIFF SAMPLE 100
[2017-04-03 08:12] LABS: PLATELET ESTIMATE SMEAR NORMAL (NORMAL); PLATELET MORPHOLOGY NORMAL (NORMAL); SCAN/DIFF FINAL DIFF MANUAL
[2017-04-03] MEDS: PANTOPRAZOLE SODIUM 40 MG VIAL IV SCH (09:49)
[2017-04-03] MEDS: SENNOSIDES SYRUP 8.8 MG/5 ML CUP PO SCH (09:49)
[2017-04-03] MEDS: LACTULOSE SYRUP 20 GM/30 ML CUP PO SCH (09:50)
[2017-04-03] MEDS: methylPREDNISolone SOD SUCC 40 MG/1 ML VIAL IV PUSH SCH (09:50)
[2017-04-03] MEDS: METOPROLOL TARTRATE 25 MG TAB PO SCH ×2 (09:50→20:29)
[2017-04-03] MEDS: CHLORHEXIDINE 0.12% (ORAL KIT) 15 ML CUP MT SCH ×2 (09:50→20:29)
[2017-04-03] MEDS: LISINOPRIL 5 MG TAB PO SCH (09:50)
[2017-04-03] MEDS: DOCUSATE SODIUM 100 MG/10 ML UDC PO SCH ×2 (09:50→20:29)
[2017-04-03] MEDS: FUROSEMIDE 40 MG/4 ML VIAL IV PUSH SCH (09:50)
--- NOTE | 2017-04-03 12:36 | HHI.PR ---
Subjective Remarks Sedated and on the vent at 50 % FIO2, and PEEP 8 cm. Restless when awake On Diprivan/Fentanyl. No fever. Output was good. Objective Vital Signs Date Time Temp Pulse Resp B/P Pulse Ox O2 Delivery O2 Flow Rate FiO2 04/03/17 09:57 97 55 04/03/17 06:00 78 04/03/17 04:24 91 55 04/03/17 04:00 77 04/03/17 04:00 55 04/03/17 04:00 98.9 77 22 103/60 91 04/03/17 02:00 76 04/03/17 01:39 96 55 04/03/17 00:00 77 04/03/17 00:00 99.0 77 20 113/61 97 04/03/17 00:00 55 04/02/17 22:00 79 04/02/17 21:22 96 55 04/02/17 20:00 99.4 79 22 112/62 97 04/02/17 20:00 79 04/02/17 20:00 55 04/02/17 18:00 80 04/02/17 17:38 99 55 04/02/17 16:00 100.4 97 16 152/69 99 04/02/17 16:00 55 04/02/17 16:00 97 04/02/17 14:00 108 04/02/17 12:50 55 I/O 04/02/17 04/02/17 04/02/17 04/03/17 04/03/17 04/03/17 07:00 15:00 23:00 07:00 15:00 23:00 Intake Total 1762 ml 1501 ml 778 ml 669 ml Output Total 1200 ml 1425 ml 700 ml Balance 562 ml 76 ml 778 ml -31 ml IV Total 622 ml 319 ml 422 ml 301 ml Tube Feeding 540 ml 1182 ml 256 ml 268 ml Tube Irrigant 600 ml Other 100 ml 100 ml Output Urine Total 1200 ml 1425 ml 700 ml # Bowel Movements 1 Result Diagram: 04/03/17 0254 04/03/17 0254 Objective Remarks PHYSICAL EXAMINATION GENERAL: This moderately obese elderly man is, assisting the ventilator. HEENT: Head normocephalic. Pupils are reactive. Opens eyes. NECK: No bruits or thyroid enlargement. CHEST: Equal movements with diminished breath sounds at the bases with Bi basilar crackles. HEART: The heart sounds are regular, S1 and S2. No murmur. ABDOMEN: Soft, obese, without masses. No organomegaly. Bowel sounds are faint. EXTREMITIES: No Edema with decreased pulses . NEUROLOGIC: Reflexes 1 +. Moves all. SKIN: Warm and dry. Assessment and Plan Assessment and Plan IMPRESSION 1. Hypercapnic respiratory failure and hypoxemic respiratory failure. 2. COPD with chronic bronchitis and acute exacerbation. 3. Congestive heart failure. 4. Cardiomyopathy with ischemic heart disease. 5. Hypertension and hyperlipidemia. 6. Possible obstructive sleep apnea. 7. pulmonary HTN. Plan : 1. Wean O2 to keep sat >92. 2. Wean sedation. 3. BMP ,CBC. 4. Tube feeds at 50 CC. 5. Cont daily Lasix 40 mg. 6. CPAP trial daily. 7. D/C Solumedrol and switch to Prednisone 20 mg daily 8. PT evaluation Bri Stout MD April 03, 2017 12:36
--- NOTE | 2017-04-03 13:58 | HHI.HCPN ---
Reason for visit a. To assist with evaluation and management of symptoms including: dyspnea, pain b. To assist medical decision maker(s) with: better understanding of current medical conditions; weighing benefits/burdens of medical treatment options; making medical treatment decisions. . (Sapphire Chen) Subjective/Interval History Palliative care to follow-up for further clarifications of goals of care and emotional support. Patient status 6 days post tracheostomy. Currently on 55% FiO2 and PEEP of 8. Not tolerating CPAP trials yesterday and today. Patient with periods of agitation/restlessness. Remains on Versed drip. He received 2 doses of lorazepam yesterday afternoon due to agitation. Laboratory today showing WBC 11.3, Hgb 9.9, platelet count 152. Sodium 140, potassium 3.7, BUN/ creatinine 21/0.46. Most recent imaging chest x-ray yesterday showing bilateral interstitial prominence and small right effusion. Patient afebrile, stable hemodynamically. Patient seen in ICU, he remains ventilated via trach. Restless, moving legs back and forth. Eyes open but not tracking. Not following commands at this time. No family at bedside. Discussed case with Dr. Licona. She reports given an update today to patient's regarding patient's condition and concerns regarding inability to tolerate CPAP trials. Patient's was once more encouraged to discuss goals of care with her 6 children. appears to be struggling with patient's current clinical condition and likelihood of continue decline. Spiritual services and palliative care social services coordinator following with for emotional and spiritual support. . Family/friend interactions Telephone call to patient's , left message in voicemail. . (Sapphire Chen) Advance Directives Living Will: Never completed Health Care Surrogate: Never completed Durable Power of Plastic Tubing Insulation Supervisor: Never completed (Sapphire Chen) Advance Directive Specifics Health Care Surrogate(s): Brooke Doran - [phone] (home), or [phone] (cellvoicemail not set up) Significant change in goals: Goals of care remain unchanged. (Sapphire Chen) Objective Vital Signs Date Time Temp Pulse Resp B/P Pulse Ox O2 Delivery O2 Flow Rate FiO2 04/03/17 09:57 97 55 04/03/17 06:00 78 04/03/17 04:24 91 55 04/03/17 04:00 77 04/03/17 04:00 55 04/03/17 04:00 98.9 77 22 103/60 91 04/03/17 02:00 76 04/03/17 01:39 96 55 04/03/17 00:00 77 04/03/17 00:00 99.0 77 20 113/61 97 04/03/17 00:00 55 04/02/17 22:00 79 04/02/17 21:22 96 55 04/02/17 20:00 99.4 79 22 112/62 97 04/02/17 20:00 79 04/02/17 20:00 55 04/02/17 18:00 80 04/02/17 17:38 99 55 04/02/17 16:00 100.4 97 16 152/69 99 04/02/17 16:00 55 04/02/17 16:00 97 04/02/17 14:00 108 Intake & Output 04/03/17 04/03/17 07:00 19:00 Intake Total 1447 ml Output Total 700 ml Balance 747 ml IV Total 723 ml Tube Feeding 524 ml Other 200 ml Output Urine Total 700 ml Physical Exam CONSTITUTIONAL/GENERAL: This is an adequately nourished patient, awake, tracking , restless. Not following commands. Not attempting to communicate. TUBES/LINES/DRAINS: PIV's, PEG tube, tracheostomy, cabrera catheter, SKIN: No jaundice, rashes, or lesions. Scatter ecchymoses on upper extremities. Skin temperature appropriate. Diaphoretic. HEAD: Atraumatic. Normocephalic. EYES: Pupils equal and round and reactive. No scleral icterus. No injection or drainage. ENT: Tracheostomy in place. NECK: Trachea midline. Supple, CARDIOVASCULAR: No murmurs, gallops, or rubs. Peripheral pulses symmetric. Edema to upper extremities left hand worsened right hand. RESPIRATORY/CHEST: Symmetric. Mildly coarse breath sounds bilaterally. Symmetric air movement. Remains on vent support via trach. GASTROINTESTINAL: Abdomen soft, round. Positive bowel sounds. GENITOURINARY: Without palpable bladder distension. catheter in place. MUSCULOSKELETAL: Edema in upper extremities. Extremities without clubbing, cyanosis. NEUROLOGICAL: Eyes open, tracking. Not following commands or attempting to communicate during my visit. PSYCHIATRIC: Restless/agitated. . (Sapphire Chen) Diagnostic Tests Laboratory Laboratory Tests Test 03/31/17 03/31/17 04/01/17 04/01/17 17:21 23:44 03:45 07:22 Blood Gas Puncture Site RT RADIAL Blood Gas Patient Temperature 98.6 Blood Gas HCO3 37 mmol/L (22-26) Blood Gas Base Excess 12.2 mmol/L (-2-2) Blood Gas Oxygen Saturation 95 % (90-100) Arterial Blood pH 7.45 (7.380-7.420) Arterial Blood Partial 54 mmHg (38-42) Pressure CO2 Arterial Blood Partial 108 mmHg Pressure O2 (61-120) Arterial Blood Oxygen Content 13.2 Vol % (12.0-20.0) Arterial Blood 2.1 % (0-4) Carboxyhemoglobin Arterial Blood Methemoglobin 1.1 % (0-2) Blood Gas Hemoglobin 9.8 G/DL (12.0-16.0) Oxygen Delivery Device VENTILATOR Blood Gas Ventilator Setting SEE COMMENTS Blood Gas Inspired Oxygen 50 % Activated Partial 29.4 SEC 35.2 SEC Thromboplast Time (24.3-30.1) (24.3-30.1) Phosphorus Level 3.4 MG/DL (2.5-4.9) White Blood Count 12.8 TH/MM3 (4.0-11.0) Red Blood Count 3.44 MIL/MM3 (4.50-5.90) Hemoglobin 9.9 GM/DL (13.0-17.0) Hematocrit 31.6 % (39.0-51.0) Mean Corpuscular Volume 91.9 FL (80.0-100.0) Mean Corpuscular Hemoglobin 28.9 PG (27.0-34.0) Mean Corpuscular Hemoglobin 31.4 % Concent (32.0-36.0) Red Cell Distribution Width 17.4 % (11.6-17.2) Platelet Count 128 TH/MM3 (150-450) Mean Platelet Volume 8.8 FL (7.0-11.0) Sodium Level 142 MEQ/L (136-145) Potassium Level 4.2 MEQ/L (3.5-5.1) Chloride Level 99 MEQ/L (98-107) Carbon Dioxide Level 38.5 MEQ/L (21.0-32.0) Anion Gap 5 MEQ/L (5-15) Blood Urea Nitrogen 20 MG/DL (7-18) Creatinine 0.35 MG/DL (0.60-1.30) Estimat Glomerular Filtration 250 ML/MIN Rate (>89) Random Glucose 135 MG/DL (74-106) Calcium Level 9.3 MG/DL (8.5-10.1) Magnesium Level 2.6 MG/DL (1.5-2.5) Test 04/01/17 04/01/17 04/02/17 04/02/17 13:40 23:02 03:44 04:45 Activated Partial 32.8 SEC 32.3 SEC 36.6 SEC Thromboplast Time (24.3-30.1) (24.3-30.1) (24.3-30.1) White Blood Count 14.3 TH/MM3 (4.0-11.0) Red Blood Count 3.37 MIL/MM3 (4.50-5.90) Hemoglobin 9.9 GM/DL (13.0-17.0) Hematocrit 30.6 % (39.0-51.0) Mean Corpuscular Volume 90.9 FL (80.0-100.0) Mean Corpuscular Hemoglobin 29.5 PG (27.0-34.0) Mean Corpuscular Hemoglobin 32.4 % Concent (32.0-36.0) Red Cell Distribution Width 17.9 % (11.6-17.2) Platelet Count 156 TH/MM3 (150-450) Mean Platelet Volume 8.6 FL (7.0-11.0) Sodium Level 141 MEQ/L (136-145) Potassium Level 3.7 MEQ/L (3.5-5.1) Chloride Level 100 MEQ/L (98-107) Carbon Dioxide Level 34.5 MEQ/L (21.0-32.0) Anion Gap 7 MEQ/L (5-15) Blood Urea Nitrogen 22 MG/DL (7-18) Creatinine 0.46 MG/DL (0.60-1.30) Estimat Glomerular Filtration 182 ML/MIN Rate (>89) Random Glucose 133 MG/DL (74-106) Calcium Level 9.3 MG/DL (8.5-10.1) Phosphorus Level 3.2 MG/DL (2.5-4.9) Magnesium Level 2.5 MG/DL (1.5-2.5) Blood Gas Puncture Site RT RADIAL Blood Gas Patient Temperature 98.6 Blood Gas HCO3 33 mmol/L (22-26) Blood Gas Base Excess 8.1 mmol/L (-2-2) Blood Gas Oxygen Saturation 93 % (90-100) Arterial Blood pH 7.42 (7.380-7.420) Arterial Blood Partial 52 mmHg (38-42) Pressure CO2 Arterial Blood Partial 85 mmHg Pressure O2 (61-120) Arterial Blood Oxygen Content 12.7 Vol % (12.0-20.0) Arterial Blood 1.6 % (0-4) Carboxyhemoglobin Arterial Blood Methemoglobin 1.1 % (0-2) Blood Gas Hemoglobin 9.6 G/DL (12.0-16.0) Oxygen Delivery Device VENTILATOR Blood Gas Ventilator Setting PRVC12/600/1.1/+8 Blood Gas Inspired Oxygen 60 % Test 04/02/17 04/02/17 04/02/17 04/03/17 12:58 17:22 20:32 02:54 Activated Partial 37.1 SEC 43.6 SEC 43.6 SEC Thromboplast Time (24.3-30.1) (24.3-30.1) (24.3-30.1) White Blood Count 14.0 TH/MM3 11.3 TH/MM3 (4.0-11.0) (4.0-11.0) Red Blood Count 3.37 MIL/MM3 3.41 MIL/MM3 (4.50-5.90) (4.50-5.90) Hemoglobin 9.6 GM/DL 9.9 GM/DL (13.0-17.0) (13.0-17.0) Hematocrit 30.6 % 31.1 % (39.0-51.0) (39.0-51.0) Mean Corpuscular Volume 91.0 FL 91.1 FL (80.0-100.0) (80.0-100.0) Mean Corpuscular Hemoglobin 28.6 PG 29.1 PG (27.0-34.0) (27.0-34.0) Mean Corpuscular Hemoglobin 31.5 % 31.9 % Concent (32.0-36.0) (32.0-36.0) Red Cell Distribution Width 17.2 % 17.9 % (11.6-17.2) (11.6-17.2) Platelet Count 165 TH/MM3 152 TH/MM3 (150-450) (150-450) Mean Platelet Volume 8.4 FL 8.8 FL (7.0-11.0) (7.0-11.0) Neutrophils (%) (Auto) 83.7 % (16.0-70.0) Lymphocytes (%) (Auto) 9.5 % (9.0-44.0) Monocytes (%) (Auto) 5.8 % (0.0-8.0) Eosinophils (%) (Auto) 0.4 % (0.0-4.0) Basophils (%) (Auto) 0.6 % (0.0-2.0) Neutrophils # (Auto) 9.4 TH/MM3 (1.8-7.7) Lymphocytes # (Auto) 1.1 TH/MM3 (1.0-4.8) Monocytes # (Auto) 0.6 TH/MM3 (0-0.9) Eosinophils # (Auto) 0.0 TH/MM3 (0-0.4) Basophils # (Auto) 0.1 TH/MM3 (0-0.2) CBC Comment AUTO DIFF Differential Total Cells 100 Counted Neutrophils % (Manual) 78 % (16-70) Band Neutrophils % 1 % (0-6) Lymphocytes % 6 % (9-44) Monocytes % 7 % (0-8) Eosinophils % 1 % (0-4) Basophils % 1 % (0-2) Neutrophils # (Manual) 9.6 TH/MM3 (1.8-7.7) Metamyelocytes 1 % (0-1) Myelocytes 5 % (0-0) Differential Comment FINAL DIFF MANUAL Platelet Estimate NORMAL (NORMAL) Platelet Morphology Comment NORMAL (NORMAL) Sodium Level 140 MEQ/L (136-145) Potassium Level 3.7 MEQ/L (3.5-5.1) Chloride Level 103 MEQ/L (98-107) Carbon Dioxide Level 32.2 MEQ/L (21.0-32.0) Anion Gap 5 MEQ/L (5-15) Blood Urea Nitrogen 21 MG/DL (7-18) Creatinine 0.46 MG/DL (0.60-1.30) Estimat Glomerular Filtration 182 ML/MIN Rate (>89) Random Glucose 102 MG/DL (74-106) Calcium Level 9.2 MG/DL (8.5-10.1) Phosphorus Level 2.7 MG/DL (2.5-4.9) Magnesium Level 2.4 MG/DL (1.5-2.5) (Sapphire Chen) Result Diagram: 04/03/17 0254 04/03/17 0254 Imaging Last Impressions Chest X-Ray 04/02/17 0600 Signed Impressions: Service Date/Time: Sunday, April 02, 2017 04:43 - CONCLUSION: No consolidation within the medial right lung base. Bilateral interstitial prominence. Tiny right effusion. Garrick Hinton Jr., MD Upper Extremity Ultrasound 03/14/17 0000 Signed Impressions: Service Date/Time: Tuesday, March 14, 2017 18:49 - CONCLUSION: 1. Thrombus throughout the cephalic veins bilaterally. These are superficial venous structures. 2. Questionable minimal thrombus within the left subclavian vein. Garrick Hinton Jr., MD CT Angiography 03/02/17 1206 Signed Impressions: Service Date/Time: Thursday, March 02, 2017 13:46 - CONCLUSION: 1. No pulmonary embolus identified. 2. Small bilateral effusions with significant dependent atelectasis bilaterally. Riley Bob MD Lower Extremity Ultrasound 02/27/17 0000 Signed Impressions: Service Date/Time: Monday, February 27, 2017 08:31 - CONCLUSION: Normal examination. Nick Farrell MD Abdomen X-Ray 02/24/17 0000 Signed Impressions: Service Date/Time: Friday, February 24, 2017 10:43 - CONCLUSION: 1. Nasogastric tube just across the GE junction. 2. Minimal nonspecific bowel gas dilatation. Artur Bob MD FACR Procedures * Central line placement * PEG tube placement * Tracheostomy 03/28/17 . (Sapphire Chen) Assessment and Plan Disease Oriented Problem List: (1) Acute respiratory failure (2) COPD with acute exacerbation Comment: Currently intubated with FiO2 of 55%. Failed CPAP trial yesterday and today. (3) Ischemic dilated cardiomyopathy Comment: EF 20% (4) Atrial flutter Comment: Has PPM with AICD (5) COPD (chronic obstructive pulmonary disease) Symptom Scale: (1) Pain 0-10 Scale: Unable to quantify Comment: History of arthritis with shoulder ORIF. Other sources of pain include prolonged bedbound status; cabrera catheter; venous access lines; tracheostomy . (2) Dyspnea 0-10 Scale: Unable to quantify Comment: COPD exacerbation, now vent dependent . (3) Restlessness and agitation 0-10 Scale: Unable to quantify Comment: Currently on Versed drip. 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 Important Contacts Brooke Doran - [phone] (home), or [phone] (cellvoicemail not set up) . Prognosis Patient may survive ICU and hospital, but jail prognosis is poor given underlying lung status and severity of his cardiomyopathy. If he does survive the hospitalization, there is a high probability of recurrent hospitalizations and fairly dependent functional status between. Hopefully, he will have a greater chance of weaning now that his has trach in place. . Code Status: No Code Plan * CODE STATUS: No code. DNR. * HEALTHCARE DECISION-MAKER: Patient appears incapacitated at this time secondary to clinical condition. Unclear if he will regain capacity. Healthcare proxy is Brooke. * GOALS OF CARE: As per patient's , goals of care at this point is to allow time for clinical improvement, however, patient currently failing CPAP trials. amenable to transition patient to comfort-directed care should patient's condition does not improve/unable to wean off vent support or condition worsen. exhibiting high levels of anxiety, frequently voicing guilt at patient's current medical condition secondary to her "decision to proceed with trach and PEG". Patient's has been encouraged by palliative care and Livan Olsen to seek guidance and emotional support from her 6 children who reside [place]. told me yesterday that her children would like to see their father but she is not allowing them to do so. Reviewed with that maybe this is the right time for them to come to see patient and to provide much- needed emotional support and guidance during this very difficult time. declined providing palliative care with children's name or contact information. * SYMPTOMS: = Shortness of breath, currently vent dependent at this time. FiO2 55%. Failed CPAP trial yesterday and today. Hx of severe COPD and CAD with cardiomyopathy status post PPM/AICD with an EF of 20%. ==Debility, secondary to prolonged hospitalization. Likely to continue to worsen. == Pain, secondary to prolonged bedrest, trach. Currently on fentanyl drip. == Agitation/ restlessness: Currently on Versed drip. * Case discussed with Dr. Licona. * Ongoing emotional support and active listening provided. Spiritual care following. Palliative care social services coordinator to follow for ongoing emotional support. * Palliative care contact information has been provided to patient's . Encouraged to provide my contact information to their children for questions. * Palliative care will continue to follow-up patient and family for further clarifications of goals of care as patient's clinical course continues to evolve. . (Sapphire Chen) Time Spent Total Floor Time (mins): 32 (Total time to include review and summarization of medical records, physical exam, telephone call to patient's and case discussion with Dr. Licona.) >50% Counseling/Coord of Care: Yes (Sapphire Chen) Attestation To help prompt me to consider important information that might be impacting today's encounter and assessment, information from prior notes written by myself or my colleagues may have been "brought forward" into today's note. My signature on this note, however, is an attestation that I personally performed the exam, history, and/or decision-making noted today, and, unless otherwise indicated, the interactions with patient, family, and staff as well as the review of records all occurred today. I also attest that the listed assessment and stated plan reflect my best clinical judgment today based on the combination of historical information, prior notes, and today's exam/ interactions. When time spent is documented, it refers only to time spent today by the signer, or if indicated, combined time spent today by collaborating physician/nurse practitioner. (Sapphire Chen) Collaborating MD Comments . Chart reviewed. Cased discussed with palliative care PHYSIOTHERAPY AIDE. Above PHYSIOTHERAPY AIDE note reviewed and I concur. . (WileyIshmael Anna Paola ARNP April 03, 2017 13:58 Ishmael Wiley MD April 23, 2017 16:03
--- NOTE | 2017-04-03 14:08 | HHI.CCPN ---
Subjective Remarks/Hospital Course The patient is a 66-year-old male with past medical history of COPD, cardiomyopathy, hypertension, gastroesophageal reflux disease, hyperlipidemia and coronary artery disease. The patient presented to [facility] ED with a 2-week history of progressive worsening shortness of breath. On arrival to the ED he was initially placed on a non-rebreather mask and ABG was performed which showed acute hypercapnic respiratory failure with a pH of 7.14, CO2 121, pAO2 141, bicarb 40, sats 93%. His laboratory data significant for hyperkalemia with potassium level 6.0 and acute renal failure with a BUN of 43 and creatinine 2.07 respectively. The chest x-ray showed cardiomegaly and findings of vascular congestion without overt failure. In the ED the patient was intubated with etomidate and rocuronium and placed on full mechanical ventilation. In addition, he is scheduled to receive 10 units IV regular insulin, 1 amp of D50 and calcium gluconate for hyperkalemia. He received cefepime, azithromycin, Solu-Medrol 125 milligrams IV push and bronchodilator treatment. When seen the patient is on Diprivan infusion for sedation and full mechanical ventilation. Per the patient is not on any oxygen at home and he occasionally smokes cigarettes. 02/24 Patient is intubated and sedated with Diprivan and Fentanyl. Switched to PC/ AC with RR 12, IP:24, IT:1.06, PEEP: 8 and FIO2 100%. CXR this morning showed interval development of bilateral perihilar and lower lung zone airspace opacity he was given Lasix 60mg total overnight. 02/25 Patient remains sedated and intubated with Diprivan and Fentanyl. Afebrile.On PC/AC with RR 12, IP:22, IT:1.10, PEEP:10, FIO2 70%. Afebrile. Renal function worse today with Cr: 1.90 from 1.72 UO: 1150ml in 24 hrs 02/26 No acute events overnight. Sedated with Fentanyl and Diprivan and intubated. Afebrile. His O2 requirements is less now on PC/AC with IP:22, IT: 1.1 with PEEP: 10 and FIO2 55%. Renal function improving with Cr: 1.42 today from 1.90. Tolerating tube feeds. 02/27 Patient remains sedated with Diprivan and Fentanyl infusion and intubated. Afebrile. 02/28: Remains sedated, orally intubated on mechanical ventilation. Being diuresed with Bumex. Tolerating tube feeds. 03/01: Remains sedated, orally intubated on mechanical ventilation. Being diabetes. Remains on PEEP of 10 and FiO2 60% 03/02 Patient remains sedated with Diprivan and Fentanyl and intubated. On PC/AC with PEEP: 10 and FIO2 80% overnight and sats 93-94%. Afebrile. 03/03: The patient remains on high respiratory requirements PEEP of 10, and FiO2 70%. 03/04: Tmax 99.9. Overnight the patient was noted to have desaturations the patient received a bolus of midazolam and fentanyl for ventilator dyssynchrony. The patient was redosed with Diamox with approximately 2.5 L diuresis in the last 12 hours. The patient continues on an FiO2 of 70% with PEEP of 10 to maintain an O2 sat of 90%. 03/05: Afebrile. Patient's FiO2 remains at 60% to maintain O2sat ranging in 92% . Future plans for tracheostomy discussed with when ventilator requirements are decreased. Patient currently is on a PEEP of 10. Patient receiving multiple doses of diuretics chest x-ray still showing increased vascular congestion. Cardiology following metalazone added to medication regimen per cardiology for diuresis. 03/06: Patient's O2 requirements were increased overnight to FiO2 of 90%. The patient's FiO2 has been decreased now currently to 70% O2 sat is 90% ABG is pending. The patient's diuresis effective, 1 kg weight loss in 24 hours. 03/07: The patient continues to have effective diuresis. The patient's O2 requirements currently FiO2 is 70% to maintain a sat of 90-91%. Discussion with Ms. London yesterday, she would like to discuss with palliative team goals of care. Palliative care consult initiated. 03/08: The patient was less responsive to diuretics today, positive weight balance last 24 hours. The patient was placed on a Lasix infusion, noted occasional PVCs on telemetry. Patient potassium repletion ongoing, schedule potassium PO intake increased to 50 mEq twice a day. Free water flushes placed on hold, was sodium level 145 will continue to monitor. Chest x-ray shows slight improvement. Continued management of ventilator settings ARDS protocol, maintaining PaO2 60 or greater and adjusting vent settings based on PaO2. Sedation vacation attempted today by GLASS BENDER, GCS 11T. Noted WBC elevation today ID consulted. 03/09: Today the patient was noted to have increasing FiO2 requirements with a PaO2 of 61. FiO2 was increased to 100%, PEEP was gradually increased to 12, then 14. The patient subsequently became hypotensive, likely due to increasing PEEP, but chest x-ray also obtained to rule out pneumothorax which was clear. The patient subsequently was laced on phenylephrine low-dose 20 mcgs which was eventually weaned off. The patient was placed on PEEP at 7 and FiO2 of 100%, sedation was weaned to lower dose. Palliative care also discussed with goals of care and the patient was made DNR. 03/10 noted creatinine elevation last night, Lasix discontinued. Dobutamine initiated per cardiology this morning. The patient continues to have high requirements on a PEEP of 8 and FiO2 of 100% his PaO2 49.2. PEEP has been increased plan to initiate Flolan. 03/11: Tmax 100.5. FRANK resolved with dobutamine infusion, heart rate 110. Microbiology report bacteremia gram-positive cocci and sputum. Patient currently on Diflucan. Will begin Linezolid in the setting of recent FRANK and oliguria, and await further recommendations from infectious disease insurance healthcare consultant. Respiratory status deteriorating. The patient was placed on Flolan last night PaO2 67. Patient remains on a PEEP of 10, unable to advance secondary to hypotension. 03/12 Patient remains sedated with Diprivan, Fentanyl and intubated. On Dobutamine 2.5 mics and Flolan. Remains On PC/AC with RR 12, IP:22, IT:1.20, PEEP;10 and FIo2 90%. Afebrile. 03/13 Patient is sedated with Diprivan and Fentanyl and intubated. On PC/AC with PEEP:12, FIO2 80%. Tmax 101.7 Remains on Dobutamine and Flolan. 03/14 Patient remains sedated and intubated. On PC/AC with PEEP:12 and FIO2 100% . T: 101.5 last night. On Flolan off Dobutamine. 03/15 No acute events overnight. Sedated with Diprivan and Fentanyl. On PC/AC with PEEP: 12, FIO2 down to 70%. Tmax 101.6. On Flolan nebs. 03/16 Patient remains sedated and intubated On PC/AC with decrease in FIO2 requirements down to 65% FIO2 with PEEP: 12. Tmax 101.4. On Heparin drip. 03/17 Patient remains sedated and intubated. T: 99.7, heparin drip turned off as patient had bloody secretions with suctioning and Hemoccult was positive. 03/18 No acute events overnight. Remains sedated and intubated. Tmax 102.8. Off heparin drip patient has minimal bloody secretions. 03/19 Patient remains sedated with Diprivan and Fentanyl intubated. Afebrile. 03/20 No acute events overnight. Sedated and intubated. Tmax : 100.8. NPO for EGD and PEG tube placement today. 03/21 remains sedated, orally intubated on mechanical ventilation. Flolan inhaled stopped today. Switched to PRVC mode mechanical ventilation from PC/AC. 03/22:Remains sedated, orally intubated on mechanical ventilation. Deep decreased to +10, FiO2 55%. 03/23: Arouses on lightening sedation, moving all 4 extremities. Orally intubated on mechanical ventilation. On PEEP of +10, FiO2 50% 03/24: Sedated, arousable, orally intubated on mechanical ventilation. PEEP +10 , FiO2 60% today. 03/25: Remains sedated, orally intubated on mechanical ventilation. PEEP of +10 , FiO2 50%. Minimal blood-tinged respiratory secretions noted. Heparin drip stopped 03/25 03/26: Remains sedated, orally intubated on mechanical ventilation. PEEP remains at +10, FiO2 60%. Discussed with Dr. Bal, doubt patient can tolerate bronchoscopies hence he is planning to do tracheostomy in the OR. 03/27: Sedated, arousable, remains orally intubated on mechanical ventilation. Awaiting tracheostomy in the OR which is scheduled for tomorrow. 03/28: Sedated, arousable, remains orally intubated on mechanical ventilation at the time of my evaluation in the morning. Subsequently taken for tracheostomy 03/29: Afebrile. Patient remains sedated and intubated. He is status post tracheostomy. PEEP remains at 10,FIO2 60%. 03/30 Sedated, tracheostomy postop day 2, patient continues to have high ventilatory requirements PEEP of 10, and able to perform CPAP trials. Previously patient was noted to be bleeding from endotracheal to prior to tracheostomy. Will initiate heparin subcutaneous DVT prophylaxis, and closely monitor before beginning full anticoagulation of heparin. 03/31: Afebrile. Will begin heparin infusion today, and closely monitor for signs of bleeding. The patient was on subcutaneous heparin yesterday without any evidence of bleeding. The patient remains on a PEEP of 10 with high O2 requirements, continue attempts at weaning. 04/01: The patient was started on full anticoagulation last evening, no evidence of bleeding, remains therapeutic. FiO2 was weaned to 50%. CPAP trials are underway. Chest x-ray slightly improved today. 04/02: The patient tolerated CPAP trials for approximately 4 hours yesterday. Today CPAP trials attempted, unsuccessful. The patient continues on heparin infusion and Versed and fentanyl to maintain ventilator synchrony. 04/03: Afebrile. The patient fell CPAP trials today. He continues on Versed and fentanyl infusions for ventilator synchrony. Heparin infusion continued no active signs of bleeding. Objective Vital Signs Date Time Temp Pulse Resp B/P Pulse Ox O2 Delivery O2 Flow Rate FiO2 04/03/17 09:57 97 55 04/03/17 06:00 78 04/03/17 04:00 98.9 22 103/60 Intake and Output 04/02/17 04/02/17 04/03/17 08:00 16:00 00:00 Intake Total 1045 ml 1501 ml 778 ml Output Total 400 ml 1425 ml 400 ml Balance 645 ml 76 ml 378 ml Result Diagram: 04/03/17 0254 04/03/17 0254 Imaging Last Impressions Chest X-Ray 04/01/17 0600 Signed Impressions: Service Date/Time: Saturday, April 01, 2017 03:29 - CONCLUSION: Cardiomegaly with interstitial edema, slightly improved. Fernando Mack MD Upper Extremity Ultrasound 03/14/17 0000 Signed Impressions: Service Date/Time: Tuesday, March 14, 2017 18:49 - CONCLUSION: 1. Thrombus throughout the cephalic veins bilaterally. These are superficial venous structures. 2. Questionable minimal thrombus within the left subclavian vein. Garrick Hinton Jr., MD CT Angiography 03/02/17 1206 Signed Impressions: Service Date/Time: Thursday, March 02, 2017 13:46 - CONCLUSION: 1. No pulmonary embolus identified. 2. Small bilateral effusions with significant dependent atelectasis bilaterally. Riley Bob MD Lower Extremity Ultrasound 02/27/17 0000 Signed Impressions: Service Date/Time: Monday, February 27, 2017 08:31 - CONCLUSION: Normal examination. Nick Farrell MD Abdomen X-Ray 02/24/17 0000 Signed Impressions: Service Date/Time: Friday, February 24, 2017 10:43 - CONCLUSION: 1. Nasogastric tube just across the GE junction. 2. Minimal nonspecific bowel gas dilatation. Artur Bob MD FACR Last Impressions Chest X-Ray 03/30/17 0600 Signed Impressions: Service Date/Time: Thursday, March 30, 2017 03:35 - CONCLUSION: Cardiomegaly with interstitial edema. Status post CABG. Fernando Mack MD Upper Extremity Ultrasound 03/14/17 0000 Signed Impressions: Service Date/Time: Tuesday, March 14, 2017 18:49 - CONCLUSION: 1. Thrombus throughout the cephalic veins bilaterally. These are superficial venous structures. 2. Questionable minimal thrombus within the left subclavian vein. Garrick Hinton Jr., MD CT Angiography 03/02/17 1206 Signed Impressions: Service Date/Time: Thursday, March 02, 2017 13:46 - CONCLUSION: 1. No pulmonary embolus identified. 2. Small bilateral effusions with significant dependent atelectasis bilaterally. Riley Bob MD Lower Extremity Ultrasound 02/27/17 0000 Signed Impressions: Service Date/Time: Monday, February 27, 2017 08:31 - CONCLUSION: Normal examination. Nick Farrell MD Abdomen X-Ray 02/24/17 0000 Signed Impressions: Service Date/Time: Friday, February 24, 2017 10:43 - CONCLUSION: 1. Nasogastric tube just across the GE junction. 2. Minimal nonspecific bowel gas dilatation. Artur Bob MD FACR Last Impressions Chest X-Ray 03/18/17 0000 Signed Impressions: Service Date/Time: Saturday, March 18, 2017 08:43 - CONCLUSION: Left lower lobe consolidation/atelectasis and likely some effusion. Nick Menchaca MD Upper Extremity Ultrasound 03/14/17 0000 Signed Impressions: Service Date/Time: Tuesday, March 14, 2017 18:49 - CONCLUSION: 1. Thrombus throughout the cephalic veins bilaterally. These are superficial venous structures. 2. Questionable minimal thrombus within the left subclavian vein. Garrick Hinton Jr., MD CT Angiography 03/02/17 1206 Signed Impressions: Service Date/Time: Thursday, March 02, 2017 13:46 - CONCLUSION: 1. No pulmonary embolus identified. 2. Small bilateral effusions with significant dependent atelectasis bilaterally. Riley Bob MD Lower Extremity Ultrasound 02/27/17 0000 Signed Impressions: Service Date/Time: Monday, February 27, 2017 08:31 - CONCLUSION: Normal examination. Nick Farrell MD Abdomen X-Ray 02/24/17 0000 Signed Impressions: Service Date/Time: Friday, February 24, 2017 10:43 - CONCLUSION: 1. Nasogastric tube just across the GE junction. 2. Minimal nonspecific bowel gas dilatation. Artur Bob MD FACR Objective Remarks GENERAL: Patient is 66 yo obese male sedated SKIN: Warm and dry. HEAD: Normocephalic. EYES: No scleral icterus. No injection or drainage. NECK: Supple, trachea midline. No JVD or lymphadenopathy. Tracheostomy in situ no erythema or drainage noted. Sutures in situ CARDIOVASCULAR:Tachycardic without murmurs, gallops, or rubs. RESPIRATORY: On mechanical ventilation, orally intubated, Breath sounds equal bilaterally. Few Coarse BS GASTROINTESTINAL: Abdomen soft, non-tender, nondistended. Normoactive bowel sounds MUSCULOSKELETAL: 2+ bilateral edema in B/L upper extremities Neuro: Sedated, arousable, moves all 4 extremities on lightening sedation. Urinary Catheter: Yes Date of Removal: Mar 04, 2017 Line: Central Venous Catheter Side: Right A/P Assessment and Plan 1. Acute hypercapnic and hypoxemic respiratory failure. 2. COPD exacerbation. 3. Acute renal failure. 4. Hypernatremia 5. Obstructive sleep apnea and morbid obesity. 6. Ischemic dilated Cardiomyopathy. S/P AICD 03/2015 7. History of coronary artery disease. 8. Gastroesophageal reflux disease. 9. Hypertension. 10. Hyperlipidemia. 11 Pulm edema 12. Acute on chronic systolic and diastolic CHF 13. Pulmonary hypertension 14. Bacteremia Plan: Neuro: On Versed and Fentanyl infusion for sedation. Daily sedation vacation Monitor neuro status CV: Monitor HR and BP keep MAP>65mmHg. On Lopressor 12.5mg BID for rate control. On aspirin 325 milligrams p.o. daily and Plavix 75 mg p.o. daily - holding starting 03/22 in anticipation of tracheostomy. Prinivil 5mg daily 01/2017 Echo showed EF 40-45%, nl LV diastolic function, No RWMA Cardiology following-Dr. Cole Pulm: PRVC mode mechanical ventilation: rate 12 tidal volume 600 I time 1.1 second PEEP 10 FiO2 60% Continue with vent support. Tracheostomy in OR by Dr. Kirkland on 03/28 evening Bronchodilators every 4 hours, Solu-Medrol 40 mg IV BID. Pulm-Dr. Lashell Padron CXR: LLL consolidation/Atelectasis CTA chest 03/02 showed no PE, small pleural effusions Flolan inhaled nebulizer treatment stopped 03/21. Heparin GTT held on 03/25 in view of blood-tinged respiratory secretions 03/28 tracheostomy- Dr. Matthew, planned suture removal 04/04 : Monitor renal function Is and Os and avoid nephrotoxins. Electrolytes replacement per protocol. Lasix 40mg daily Decrease Free water 100 ml Q8 on 03/22, monitor sodium level GI: On Protonix 40 mg IV daily for GI prophylaxis. TF(Glucerna 1.5 @45ml/hr. S/P PEG tube placement 03/20 Senna, Colace for bowel regimen, 02/24 KUB abdomen: Minimal non-specific bowel gas dilatation GI is following for anemia and positive Hemoccult. ID: ID following- Dr. Young. Stopped antibiotics on 03/23 (Vancomycin, Levaquin) monitor for signs of infections ( Fever, WBC) . Leukocytosis resolving 03/16 C-diff PCR negative 03/14: BC: NGTD 03/14: Normal resp tiffany, urine cx: No growth 03/09 Repeat Bld cultures-staph Epi, coag negative staph- likely contaminant 03/09 Repeat sputum culture-staph aureus Heme: Monitor CBC. Heparin GTT held on 03/25. Heparin infusion restarted 03/31 . Repeat ultrasound bilateral upper extremities and lower extremities Endo: SSI with Accu-Chek q. 6-hour for glycemic control. GI prophylaxis with Protonix 40 mg BID and DVT prophylaxis with SCDs, and heparin infusion Doppler US UE: 03/14-Thrombus throughout the cephalic veins bilaterally. ? minimal thrombus within the left subclavian vein. Was off Heparin drip as patient had bloody secretions with suctioning ( resolved ) and positive Hemoccult. Heparin resumed (cleared by GI) and subsequently stopped on 03/25 due to blood tinged respiratory secretions, resumed 03/31 Doppler US LE No DVT on 02/27 Dispo: Discussed patient with GLASS BENDER, Palliative care is following. This patient remains critically ill with one or more organ systems which are or may become a threat to life. I have spent in excess of 31 minutes discontinuously in the care and management of this patient. This time is exclusive of procedures, and includes, but is not limited to, evaluation of the patient, review of the medical record, discussions with family, consultants, nursing staff, or respiratory therapy, and documentation in the medical record. Physician Rolanda Maria MD April 03, 2017 14:08
[2017-04-03] MEDS: HEPARIN-D5W INJ 250 ML IV SCH (16:38)
[2017-04-03] MEDS: ATORVASTATIN 40 MG TAB PO SCH (20:30)
[2017-04-04] VITALS (30 sets, daily range): BP systolic 92–155; BP diastolic 52–78; PULSE 69–111; RESP 16–43; TEMP 98–99.4; O2SAT 90–100
[2017-04-04] MEDS: fentaNYL DRIP 250 ML IV SCH ×2 (02:41→18:44)
[2017-04-04] MEDS: MIDAZOLAM 100 MG/ML INJ 100 ML IV SCH ×2 (02:41→14:01)
[2017-04-04] MEDS: CHLORHEXIDINE GLUCONATE 2 % 1 PACK (2 CLOTHS) TOP SCH ×2 (02:41→23:23)
[2017-04-04] MEDS: HEPARIN-D5W INJ 250 ML IV SCH ×2 (02:46→22:01)
[2017-04-04 04:29] LABS: APTT (PATIENT) 44.2 SEC (24.3-30.1)
[2017-04-04 04:43] LABS: BICARBONATE 33.1 MEQ/L (21.0-32.0); MAGNESIUM 2.4 MG/DL (1.5-2.5); POTASSIUM 3.2 MEQ/L (3.5-5.1)
[2017-04-04] MEDS: INSULIN NovoLIN REGULAR SUPPLEMENTAL SCALE SQ SCH ×4 (05:00→23:00)
[2017-04-04] MEDS: FREE WATER G-TUBE SCH ×3 (05:44→21:54)
[2017-04-04] MEDS: POTASSIUM CHLOR 20 MEQ PREMIX 100 ML IV PRN ×3 (06:37→10:49)
[2017-04-04] MEDS: predniSONE 20 MG TAB PO SCH (08:26)
[2017-04-04] MEDS: LISINOPRIL 5 MG TAB PO SCH (08:26)
[2017-04-04] MEDS: METOPROLOL TARTRATE 25 MG TAB PO SCH ×2 (08:26→21:54)
[2017-04-04] MEDS: PANTOPRAZOLE SODIUM 40 MG VIAL IV SCH (08:27)
[2017-04-04] MEDS: CHLORHEXIDINE 0.12% (ORAL KIT) 15 ML CUP MT SCH ×2 (08:27→21:54)
[2017-04-04] MEDS: FUROSEMIDE 40 MG/4 ML VIAL IV PUSH SCH (08:27)
[2017-04-04] MEDS: DOCUSATE SODIUM 100 MG/10 ML UDC PO SCH (09:00)
[2017-04-04] MEDS: LACTULOSE SYRUP 20 GM/30 ML CUP PO SCH (09:00)
[2017-04-04] MEDS: SENNOSIDES SYRUP 8.8 MG/5 ML CUP PO SCH (09:00)
--- NOTE | 2017-04-04 10:26 | RADRPT ---
EXAM DATE/TIME: 04/04/2017 08:54 [facility] COMPARISON: No previous studies available for comparison. INDICATIONS : Bilateral leg swelling. MEDICAL HISTORY : Hypercholesterolemia. Chronic obstructive pulmonary disease. Myocardial infarction. Hypertension. Emp hysema. Blood transfusion. Arthritis. Ulcer. SURGICAL HISTORY : Appendectomy.CABG Pacemaker. ENCOUNTER: Subsequent ACUITY: 3 days PAIN SCORE: Non-responsive LOCATION: Bilateral legs. TECHNIQUE: Venous ultrasound of the left and right leg was performed from the inguinal ligament to the proximal calf. Real-time, color Doppler and spectral tracing, compression and augmentation techniques were us ed. FINDINGS: RIGHT LEG: There is normal compressibility of the deep venous system from the inguinal region to the proximal ca lf. No echogenic clot is seen in the lumen of the common femoral, femoral, popliteal, and posterior tibial veins. There is a normal response of the venous system to proximal and distal augmentation an d respiration. LEFT LEG: There is normal compressibility of the deep venous system from the inguinal region to the proximal ca lf. No echogenic clot is seen in the lumen of the common femoral, femoral, popliteal, and posterior tibial veins. There is a normal response of the venous system to proximal and distal augmentation an d respiration. CONCLUSION: No DVT in either lower extremity. Fernando Mack MD on April 04, 2017 at 10:24 Board Certified Radiologist. This report was verified electronically.
--- NOTE | 2017-04-04 10:49 | RADRPT ---
EXAM DATE/TIME: 04/04/2017 09:32 [facility] COMPARISON: US ARM BILATERAL VENOUS DOPPLER, March 14, 2017, 18:49. INDICATIONS : Bilateral arm swelling. MEDICAL HISTORY : Myocardial infarction. Hypercholesterolemia. Chronic obstructive pulmonary disease. Hypertension. Emp hysema. Blood transfusion. Arthritis. Ulcer. SURGICAL HISTORY : CABGAppendectomy. Pacemaker. ENCOUNTER: Subsequent ACUITY: 3 days PAIN SCORE: Non-responsive LOCATION: Bilateral arms. FINDINGS: RIGHT UPPER EXTREMITY: There is occlusive thrombus in the cephalic vein. The deep veins are patent. LEFT UPPER EXTREMITY: Occlusive thrombus in the mid cephalic vein. The deep veins are patent. CONCLUSION: Occlusive thrombus in both cephalic veins. The veins are patent. I cannot see more medial than the axillary veins. Artur Bob MD FACR on April 04, 2017 at 10:46 Board Certified Radiologist. This report was verified electronically.
--- NOTE | 2017-04-04 12:03 | HHI.PR ---
Subjective Remarks Less Sedated and on the vent at 50 % FIO2, and PEEP 8 cm. Confused. Mild sedation. No fever. . Objective Vital Signs Date Time Temp Pulse Resp B/P Pulse Ox O2 Delivery O2 Flow Rate FiO2 04/04/17 10:12 96 50 04/04/17 08:42 100 50 04/04/17 06:00 70 04/04/17 04:17 93 50 04/04/17 04:00 77 04/04/17 04:00 50 04/04/17 04:00 98.9 77 22 102/57 93 04/04/17 02:00 74 04/04/17 01:11 95 50 04/04/17 00:00 79 04/04/17 00:00 50 04/04/17 00:00 99.1 79 20 107/59 94 04/03/17 22:00 80 04/03/17 21:45 92 50 04/03/17 20:00 99.8 86 22 126/60 04/03/17 20:00 50 04/03/17 20:00 86 04/03/17 19:00 86 16 109/55 92 04/03/17 18:00 102 25 114/76 98 04/03/17 17:00 81 16 111/58 97 04/03/17 16:44 97 50 04/03/17 16:00 98.3 80 21 114/60 94 04/03/17 16:00 50 04/03/17 15:00 96 16 124/62 97 04/03/17 14:00 81 16 117/58 95 04/03/17 13:00 89 9 113/57 92 I/O 04/03/17 04/03/17 04/03/17 04/04/17 04/04/17 04/04/17 07:00 15:00 23:00 07:00 15:00 23:00 Intake Total 669 ml 1155 ml 1314 ml 775 ml Output Total 700 ml 1150 ml 500 ml 400 ml Balance -31 ml 5 ml 814 ml 375 ml IV Total 301 ml 380 ml 412 ml 333 ml Tube Feeding 268 ml 475 ml 402 ml 342 ml Other 100 ml 300 ml 500 ml 100 ml Output Urine Total 700 ml 1150 ml 500 ml 400 ml # Bowel Movements 2 1 Result Diagram: 04/03/17 0254 04/04/17 0337 Objective Remarks PHYSICAL EXAMINATION GENERAL: This moderately obese elderly man is, assisting the ventilator. HEENT: Head normocephalic. Pupils are reactive. Opens eyes. NECK: No bruits or thyroid enlargement. CHEST: Equal movements with diminished breath sounds at the bases with Occ basilar crackles. HEART: The heart sounds are regular, S1 and S2. No murmur. ABDOMEN: Soft, obese, without masses. No organomegaly. Bowel sounds are faint. EXTREMITIES: No Edema with decreased pulses . NEUROLOGIC: Reflexes 1 +. Moves all. SKIN: Warm and dry. Assessment and Plan Assessment and Plan IMPRESSION 1. Hypercapnic respiratory failure and hypoxemic respiratory failure. 2. COPD with chronic bronchitis and acute exacerbation. 3. Congestive heart failure. 4. Cardiomyopathy with ischemic heart disease. 5. Hypertension and hyperlipidemia. 6. Possible obstructive sleep apnea. 7. pulmonary HTN. Plan : 1. Wean O2 to keep sat >92. 2. Wean sedation. 3. Chest X ray in am 4. Tube feeds at 60 CC. 5. Lasix 40 mg. 6. CPAP trial daily. 7. Prednisone 20 mg daily 8. PT evaluation Bri Stout MD April 04, 2017 12:03
--- NOTE | 2017-04-04 13:53 | HHI.HCPN ---
Reason for visit a. To assist with evaluation and management of symptoms including: dyspnea, pain b. To assist medical decision maker(s) with: better understanding of current medical conditions; weighing benefits/burdens of medical treatment options; making medical treatment decisions. . (Sapphire Chen) Subjective/Interval History Palliative care to follow-up for further clarifications of goals of care and emotional support. Patient remains on mechanical ventilation via tracheostomy. Currently on 50% FiO2 and PEEP of 8. Continue not tolerating CPAP trials. Periods of agitation/restlessness requiring Versed drip. Laboratory today showing sodium 144, potassium 3.2, BUN/creatinine 20/0.41. Lower extremity ultrasound negative for DVT in either extremity. Upper extremity ultrasound positive for occlusive thrombus in both cephalic veins. Most recent chest x- ray 04/02/17 showing small right effusion. Patient afebrile today, stable hemodynamically. Patient seen in ICU. Eyes open but not tracking or following any commands. Not attempting to communicate during my visit. at bedside, she reports that she is in close communication with all of her 6 children who remain in [place]. No plan for children to visit patient in [place]. tells me that family had a long prayer last night asking for patient's healing. declining discussing goals of care at this time until next chest x-ray as she feels that this long prayer may have a positive effect on patient's health. Ongoing emotional support and active listening provided. Spiritual services and palliative care social welfare research worker following with for emotional and spiritual support. . Family/friend interactions See interval note. . (Sapphire Chen) Advance Directives Living Will: Never completed Health Care Surrogate: Never completed Durable Power of Wwe Wrestler: Never completed (Sapphire Chen) Advance Directive Specifics Health Care Surrogate(s): Brooke Doran - [phone] (home), or [phone] (cellvoicemail not set up) Significant change in goals: No code. Continue aggressive medical management short of no code. . (Sapphire Chen) Objective Vital Signs Date Time Temp Pulse Resp B/P Pulse Ox O2 Delivery O2 Flow Rate FiO2 04/04/17 10:12 96 50 04/04/17 08:42 100 50 04/04/17 06:00 70 04/04/17 04:17 93 50 04/04/17 04:00 77 04/04/17 04:00 50 04/04/17 04:00 98.9 77 22 102/57 93 04/04/17 02:00 74 04/04/17 01:11 95 50 04/04/17 00:00 79 04/04/17 00:00 50 04/04/17 00:00 99.1 79 20 107/59 94 04/03/17 22:00 80 04/03/17 21:45 92 50 04/03/17 20:00 99.8 86 22 126/60 04/03/17 20:00 50 04/03/17 20:00 86 04/03/17 19:00 86 16 109/55 92 04/03/17 18:00 102 25 114/76 98 04/03/17 17:00 81 16 111/58 97 04/03/17 16:44 97 50 04/03/17 16:00 98.3 80 21 114/60 94 04/03/17 16:00 50 04/03/17 15:00 96 16 124/62 97 04/03/17 14:00 81 16 117/58 95 Intake & Output 04/04/17 04/04/17 07:00 19:00 Intake Total 2089 ml Output Total 900 ml Balance 1189 ml IV Total 745 ml Tube Feeding 744 ml Other 600 ml Output Urine Total 900 ml # Bowel Movements 1 Physical Exam CONSTITUTIONAL/GENERAL: This is an adequately nourished patient, eyes open but not tracking. Not following any commands. Not attempting to communicate. TUBES/LINES/DRAINS: PIV's, PEG tube, tracheostomy, cabrera catheter, bilateral soft wrist restraints. SKIN: No jaundice, rashes, or lesions. Scatter ecchymoses on upper extremities. Skin temperature appropriate. Diaphoretic. HEAD: Atraumatic. Normocephalic. EYES: Pupils equal and round and reactive. No scleral icterus. No injection or drainage. ENT: Tracheostomy in place. NECK: Trachea midline. Supple, CARDIOVASCULAR: No murmurs, gallops, or rubs. Peripheral pulses symmetric. Edema to upper extremities left hand worsened right hand. RESPIRATORY/CHEST: Symmetric. Mildly coarse breath sounds bilaterally. Symmetric air movement. Remains on vent support via trach. GASTROINTESTINAL: Abdomen soft, round. Positive bowel sounds. GENITOURINARY: Without palpable bladder distension. catheter in place. MUSCULOSKELETAL: Edema in upper extremities. Extremities without clubbing, cyanosis. NEUROLOGICAL: Eyes open but not tracking. Not following commands or attempting to communicate during my visit. PSYCHIATRIC: Sedated, appears calm. (Sapphire Chen) Diagnostic Tests Laboratory Laboratory Tests Test 04/01/17 04/01/17 04/02/17 04/02/17 13:40 23:02 03:44 04:45 Activated Partial 32.8 SEC 32.3 SEC 36.6 SEC Thromboplast Time (24.3-30.1) (24.3-30.1) (24.3-30.1) White Blood Count 14.3 TH/MM3 (4.0-11.0) Red Blood Count 3.37 MIL/MM3 (4.50-5.90) Hemoglobin 9.9 GM/DL (13.0-17.0) Hematocrit 30.6 % (39.0-51.0) Mean Corpuscular Volume 90.9 FL (80.0-100.0) Mean Corpuscular Hemoglobin 29.5 PG (27.0-34.0) Mean Corpuscular Hemoglobin 32.4 % Concent (32.0-36.0) Red Cell Distribution Width 17.9 % (11.6-17.2) Platelet Count 156 TH/MM3 (150-450) Mean Platelet Volume 8.6 FL (7.0-11.0) Sodium Level 141 MEQ/L (136-145) Potassium Level 3.7 MEQ/L (3.5-5.1) Chloride Level 100 MEQ/L (98-107) Carbon Dioxide Level 34.5 MEQ/L (21.0-32.0) Anion Gap 7 MEQ/L (5-15) Blood Urea Nitrogen 22 MG/DL (7-18) Creatinine 0.46 MG/DL (0.60-1.30) Estimat Glomerular Filtration 182 ML/MIN Rate (>89) Random Glucose 133 MG/DL (74-106) Calcium Level 9.3 MG/DL (8.5-10.1) Phosphorus Level 3.2 MG/DL (2.5-4.9) Magnesium Level 2.5 MG/DL (1.5-2.5) Blood Gas Puncture Site RT RADIAL Blood Gas Patient Temperature 98.6 Blood Gas HCO3 33 mmol/L (22-26) Blood Gas Base Excess 8.1 mmol/L (-2-2) Blood Gas Oxygen Saturation 93 % (90-100) Arterial Blood pH 7.42 (7.380-7.420) Arterial Blood Partial 52 mmHg (38-42) Pressure CO2 Arterial Blood Partial 85 mmHg Pressure O2 (61-120) Arterial Blood Oxygen Content 12.7 Vol % (12.0-20.0) Arterial Blood 1.6 % (0-4) Carboxyhemoglobin Arterial Blood Methemoglobin 1.1 % (0-2) Blood Gas Hemoglobin 9.6 G/DL (12.0-16.0) Oxygen Delivery Device VENTILATOR Blood Gas Ventilator Setting PRVC12/600/1.1/+8 Blood Gas Inspired Oxygen 60 % Test 04/02/17 04/02/17 04/02/17 04/03/17 12:58 17:22 20:32 02:54 Activated Partial 37.1 SEC 43.6 SEC 43.6 SEC Thromboplast Time (24.3-30.1) (24.3-30.1) (24.3-30.1) White Blood Count 14.0 TH/MM3 11.3 TH/MM3 (4.0-11.0) (4.0-11.0) Red Blood Count 3.37 MIL/MM3 3.41 MIL/MM3 (4.50-5.90) (4.50-5.90) Hemoglobin 9.6 GM/DL 9.9 GM/DL (13.0-17.0) (13.0-17.0) Hematocrit 30.6 % 31.1 % (39.0-51.0) (39.0-51.0) Mean Corpuscular Volume 91.0 FL 91.1 FL (80.0-100.0) (80.0-100.0) Mean Corpuscular Hemoglobin 28.6 PG 29.1 PG (27.0-34.0) (27.0-34.0) Mean Corpuscular Hemoglobin 31.5 % 31.9 % Concent (32.0-36.0) (32.0-36.0) Red Cell Distribution Width 17.2 % 17.9 % (11.6-17.2) (11.6-17.2) Platelet Count 165 TH/MM3 152 TH/MM3 (150-450) (150-450) Mean Platelet Volume 8.4 FL 8.8 FL (7.0-11.0) (7.0-11.0) Neutrophils (%) (Auto) 83.7 % (16.0-70.0) Lymphocytes (%) (Auto) 9.5 % (9.0-44.0) Monocytes (%) (Auto) 5.8 % (0.0-8.0) Eosinophils (%) (Auto) 0.4 % (0.0-4.0) Basophils (%) (Auto) 0.6 % (0.0-2.0) Neutrophils # (Auto) 9.4 TH/MM3 (1.8-7.7) Lymphocytes # (Auto) 1.1 TH/MM3 (1.0-4.8) Monocytes # (Auto) 0.6 TH/MM3 (0-0.9) Eosinophils # (Auto) 0.0 TH/MM3 (0-0.4) Basophils # (Auto) 0.1 TH/MM3 (0-0.2) CBC Comment AUTO DIFF Differential Total Cells 100 Counted Neutrophils % (Manual) 78 % (16-70) Band Neutrophils % 1 % (0-6) Lymphocytes % 6 % (9-44) Monocytes % 7 % (0-8) Eosinophils % 1 % (0-4) Basophils % 1 % (0-2) Neutrophils # (Manual) 9.6 TH/MM3 (1.8-7.7) Metamyelocytes 1 % (0-1) Myelocytes 5 % (0-0) Differential Comment FINAL DIFF MANUAL Platelet Estimate NORMAL (NORMAL) Platelet Morphology Comment NORMAL (NORMAL) Sodium Level 140 MEQ/L (136-145) Potassium Level 3.7 MEQ/L (3.5-5.1) Chloride Level 103 MEQ/L (98-107) Carbon Dioxide Level 32.2 MEQ/L (21.0-32.0) Anion Gap 5 MEQ/L (5-15) Blood Urea Nitrogen 21 MG/DL (7-18) Creatinine 0.46 MG/DL (0.60-1.30) Estimat Glomerular Filtration 182 ML/MIN Rate (>89) Random Glucose 102 MG/DL (74-106) Calcium Level 9.2 MG/DL (8.5-10.1) Phosphorus Level 2.7 MG/DL (2.5-4.9) Magnesium Level 2.4 MG/DL (1.5-2.5) Test 04/04/17 03:37 Activated Partial 44.2 SEC Thromboplast Time (24.3-30.1) Sodium Level 144 MEQ/L (136-145) Potassium Level 3.2 MEQ/L (3.5-5.1) Chloride Level 102 MEQ/L (98-107) Carbon Dioxide Level 33.1 MEQ/L (21.0-32.0) Anion Gap 9 MEQ/L (5-15) Blood Urea Nitrogen 20 MG/DL (7-18) Creatinine 0.41 MG/DL (0.60-1.30) Estimat Glomerular Filtration 208 ML/MIN Rate (>89) Random Glucose 96 MG/DL (74-106) Calcium Level 9.1 MG/DL (8.5-10.1) Phosphorus Level 2.8 MG/DL (2.5-4.9) Magnesium Level 2.4 MG/DL (1.5-2.5) (Sapphire Chen [facility]) Result Diagram: 04/03/17 0254 04/04/17 0337 Imaging Last Impressions Upper Extremity Ultrasound 04/04/17599 Signed Impressions: Service Date/Time: Tuesday, April 04, 2017 09:32 - CONCLUSION: Occlusive thrombus in both cephalic veins. The veins are patent. I cannot see more medial than the axillary veins. Artur Bob MD FACR Lower Extremity Ultrasound 04/04/17599 Signed Impressions: Service Date/Time: Tuesday, April 04, 2017 08:54 - CONCLUSION: No DVT in either lower extremity. Fernando Mack MD Chest X-Ray 04/02/17599 Signed Impressions: Service Date/Time: Sunday, April 02, 2017 04:43 - CONCLUSION: No consolidation within the medial right lung base. Bilateral interstitial prominence. Tiny right effusion. Garrick Hinton Jr., MD CT Angiography 03/02/17 1206 Signed Impressions: Service Date/Time: Thursday, March 02, 2017 13:46 - CONCLUSION: 1. No pulmonary embolus identified. 2. Small bilateral effusions with significant dependent atelectasis bilaterally. Riley Bob MD Abdomen X-Ray 02/24/17 0000 Signed Impressions: Service Date/Time: Friday, February 24, 2017 10:43 - CONCLUSION: 1. Nasogastric tube just across the GE junction. 2. Minimal nonspecific bowel gas dilatation. Artur Bob MD FACR Procedures * Central line placement * PEG tube placement * Tracheostomy 03/28/17 . (Sapphire Chen) Assessment and Plan Disease Oriented Problem List: (1) Acute respiratory failure (2) COPD with acute exacerbation Comment: Currently intubated with FiO2 of 50%. Not tolerating CPAP trials. (3) Ischemic dilated cardiomyopathy Comment: EF 20% (4) Atrial flutter Comment: Has PPM with AICD (5) COPD (chronic obstructive pulmonary disease) Symptom Scale: (1) Pain 0-10 Scale: Unable to quantify Comment: History of arthritis with shoulder ORIF. Other sources of pain include prolonged bedbound status; cabrera catheter; venous access lines; tracheostomy . (2) Dyspnea 0-10 Scale: Unable to quantify Comment: COPD exacerbation, now vent dependent . (3) Restlessness and agitation 0-10 Scale: Unable to quantify Comment: Currently on Versed drip. 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 Important Contacts Brooke Doran - [phone] (home), or [phone] (cellvoicemail not set up) . 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 If he does survive the hospitalization, there is a high probability of recurrent hospitalizations and fairly dependent functional status between. Hopefully, he will have a greater chance of weaning now that his has trach in place. . Code Status: No Code Plan * CODE STATUS: No code. DNR. * HEALTHCARE DECISION-MAKER: Patient incapacitated at this time secondary to clinical condition. Unclear if he will regain capacity. Healthcare proxy is Brooke. * GOALS OF CARE: As per patient's , goals of care at this point is to allow time for clinical improvement, however, patient currently failing/not tolerating CPAP trials. tells me that family had a long prayer last night asking for patient's healing. declined discussing goals of care at this time until next chest x-ray as she feels that this long prayer may have a positive effect on patient's health. Shared concerns of patient's inability to tolerate/failing CPAP Trial and high risk for further complications, continue decline and given acute illness, multiple comorbidities, prolonged hospitalization, and profound physical deconditioning. exhibiting high levels of anxiety, frequently voicing guilt at patient's current medical condition secondary to her "decision to proceed with trach and PEG". Patient' s has been encouraged by palliative care and Livan Olsen to seek guidance and emotional support from her 6 children who reside [place]. declined providing palliative care with children's names or contact information. * SYMPTOMS: = Shortness of breath, currently vent dependent at this time. FiO2 50%. Continue saline CPAP trials. Hx of severe COPD and CAD with cardiomyopathy status post PPM/AICD with an EF of 20%. ==Debility, secondary to prolonged hospitalization. Likely to continue to worsen. == Pain, secondary to prolonged bedrest, trach. Currently on fentanyl drip. == Agitation/ restlessness: Currently on Versed drip. * Case discussed with Dr. Licona. * Ongoing emotional support and active listening provided. Spiritual care following. Palliative care social welfare research worker to follow for ongoing emotional support. * Palliative care contact information has been provided to patient's . Encouraged to provide my contact information to their children for questions. * Palliative care will continue to follow-up patient and family for further clarifications of goals of care as patient's clinical course continues to evolve. . (Sapphire Chen) Time Spent Total Floor Time (mins): 42 (Total time to include review and summarization of medical records, physical exam, bedside conversation with patient's .) >50% Counseling/Coord of Care: Yes (Sapphire Chen) Attestation To help prompt me to consider important information that might be impacting today's encounter and assessment, information from prior notes written by myself or my colleagues may have been "brought forward" into today's note. My signature on this note, however, is an attestation that I personally performed the exam, history, and/or decision-making noted today, and, unless otherwise indicated, the interactions with patient, family, and staff as well as the review of records all occurred today. I also attest that the listed assessment and stated plan reflect my best clinical judgment today based on the combination of historical information, prior notes, and today's exam/ interactions. When time spent is documented, it refers only to time spent today by the signer, or if indicated, combined time spent today by collaborating physician/nurse practitioner. (Sapphire Chen) Collaborating MD Comments . Chart reviewed. Cased discussed with palliative care INSTRUCTOR DECORATING. Above INSTRUCTOR DECORATING note reviewed and I concur. . (Ishmael Wiley MD) Sapphire Chen April 04, 2017 13:52 Ishmael Wiley MD April 23, 2017 16:06
[2017-04-04] MEDS: PROPOFOL 1000 MG/100 ML INJ 100 ML IV SCH ×3 (15:12→21:59)
--- NOTE | 2017-04-04 15:34 | HHI.CCPN ---
Subjective Remarks/Hospital Course The patient is a 66-year-old male with past medical history of COPD, cardiomyopathy, hypertension, gastroesophageal reflux disease, hyperlipidemia and coronary artery disease. The patient presented to [facility] ED with a 2-week history of progressive worsening shortness of breath. On arrival to the ED he was initially placed on a non-rebreather mask and ABG was performed which showed acute hypercapnic respiratory failure with a pH of 7.14, CO2 121, pAO2 141, bicarb 40, sats 93%. His laboratory data significant for hyperkalemia with potassium level 6.0 and acute renal failure with a BUN of 43 and creatinine 2.07 respectively. The chest x-ray showed cardiomegaly and findings of vascular congestion without overt failure. In the ED the patient was intubated with etomidate and rocuronium and placed on full mechanical ventilation. In addition, he is scheduled to receive 10 units IV regular insulin, 1 amp of D50 and calcium gluconate for hyperkalemia. He received cefepime, azithromycin, Solu-Medrol 125 milligrams IV push and bronchodilator treatment. When seen the patient is on Diprivan infusion for sedation and full mechanical ventilation. Per the patient is not on any oxygen at home and he occasionally smokes cigarettes. 02/24 Patient is intubated and sedated with Diprivan and Fentanyl. Switched to PC/ AC with RR 12, IP:24, IT:1.06, PEEP: 8 and FIO2 100%. CXR this morning showed interval development of bilateral perihilar and lower lung zone airspace opacity he was given Lasix 60mg total overnight. 02/25 Patient remains sedated and intubated with Diprivan and Fentanyl. Afebrile.On PC/AC with RR 12, IP:22, IT:1.10, PEEP:10, FIO2 70%. Afebrile. Renal function worse today with Cr: 1.90 from 1.72 UO: 1150ml in 24 hrs 02/26 No acute events overnight. Sedated with Fentanyl and Diprivan and intubated. Afebrile. His O2 requirements is less now on PC/AC with IP:22, IT: 1.1 with PEEP: 10 and FIO2 55%. Renal function improving with Cr: 1.42 today from 1.90. Tolerating tube feeds. 02/27 Patient remains sedated with Diprivan and Fentanyl infusion and intubated. Afebrile. 02/28: Remains sedated, orally intubated on mechanical ventilation. Being diuresed with Bumex. Tolerating tube feeds. 03/01: Remains sedated, orally intubated on mechanical ventilation. Being diabetes. Remains on PEEP of 10 and FiO2 60% 03/02 Patient remains sedated with Diprivan and Fentanyl and intubated. On PC/AC with PEEP: 10 and FIO2 80% overnight and sats 93-94%. Afebrile. 03/03: The patient remains on high respiratory requirements PEEP of 10, and FiO2 70%. 03/04: Tmax 99.9. Overnight the patient was noted to have desaturations the patient received a bolus of midazolam and fentanyl for ventilator dyssynchrony. The patient was redosed with Diamox with approximately 2.5 L diuresis in the last 12 hours. The patient continues on an FiO2 of 70% with PEEP of 10 to maintain an O2 sat of 90%. 03/05: Afebrile. Patient's FiO2 remains at 60% to maintain O2sat ranging in 92% . Future plans for tracheostomy discussed with when ventilator requirements are decreased. Patient currently is on a PEEP of 10. Patient receiving multiple doses of diuretics chest x-ray still showing increased vascular congestion. Cardiology following metalazone added to medication regimen per cardiology for diuresis. 03/06: Patient's O2 requirements were increased overnight to FiO2 of 90%. The patient's FiO2 has been decreased now currently to 70% O2 sat is 90% ABG is pending. The patient's diuresis effective, 1 kg weight loss in 24 hours. 03/07: The patient continues to have effective diuresis. The patient's O2 requirements currently FiO2 is 70% to maintain a sat of 90-91%. Discussion with Ms. London yesterday, she would like to discuss with palliative team goals of care. Palliative care consult initiated. 03/08: The patient was less responsive to diuretics today, positive weight balance last 24 hours. The patient was placed on a Lasix infusion, noted occasional PVCs on telemetry. Patient potassium repletion ongoing, schedule potassium PO intake increased to 50 mEq twice a day. Free water flushes placed on hold, was sodium level 145 will continue to monitor. Chest x-ray shows slight improvement. Continued management of ventilator settings ARDS protocol, maintaining PaO2 60 or greater and adjusting vent settings based on PaO2. Sedation vacation attempted today by FORESTRY FOREMAN, GCS 11T. Noted WBC elevation today ID consulted. 03/09: Today the patient was noted to have increasing FiO2 requirements with a PaO2 of 61. FiO2 was increased to 100%, PEEP was gradually increased to 12, then 14. The patient subsequently became hypotensive, likely due to increasing PEEP, but chest x-ray also obtained to rule out pneumothorax which was clear. The patient subsequently was laced on phenylephrine low-dose 20 mcgs which was eventually weaned off. The patient was placed on PEEP at 7 and FiO2 of 100%, sedation was weaned to lower dose. Palliative care also discussed with goals of care and the patient was made DNR. 03/10 noted creatinine elevation last night, Lasix discontinued. Dobutamine initiated per cardiology this morning. The patient continues to have high requirements on a PEEP of 8 and FiO2 of 100% his PaO2 49.2. PEEP has been increased plan to initiate Flolan. 03/11: Tmax 100.5. FRANK resolved with dobutamine infusion, heart rate 110. Microbiology report bacteremia gram-positive cocci and sputum. Patient currently on Diflucan. Will begin Linezolid in the setting of recent FRANK and oliguria, and await further recommendations from infectious disease retirement consultant. Respiratory status deteriorating. The patient was placed on Flolan last night PaO2 67. Patient remains on a PEEP of 10, unable to advance secondary to hypotension. 03/12 Patient remains sedated with Diprivan, Fentanyl and intubated. On Dobutamine 2.5 mics and Flolan. Remains On PC/AC with RR 12, IP:22, IT:1.20, PEEP;10 and FIo2 90%. Afebrile. 03/13 Patient is sedated with Diprivan and Fentanyl and intubated. On PC/AC with PEEP:12, FIO2 80%. Tmax 101.7 Remains on Dobutamine and Flolan. 03/14 Patient remains sedated and intubated. On PC/AC with PEEP:12 and FIO2 100% . T: 101.5 last night. On Flolan off Dobutamine. 03/15 No acute events overnight. Sedated with Diprivan and Fentanyl. On PC/AC with PEEP: 12, FIO2 down to 70%. Tmax 101.6. On Flolan nebs. 03/16 Patient remains sedated and intubated On PC/AC with decrease in FIO2 requirements down to 65% FIO2 with PEEP: 12. Tmax 101.4. On Heparin drip. 03/17 Patient remains sedated and intubated. T: 99.7, heparin drip turned off as patient had bloody secretions with suctioning and Hemoccult was positive. 03/18 No acute events overnight. Remains sedated and intubated. Tmax 102.8. Off heparin drip patient has minimal bloody secretions. 03/19 Patient remains sedated with Diprivan and Fentanyl intubated. Afebrile. 03/20 No acute events overnight. Sedated and intubated. Tmax : 100.8. NPO for EGD and PEG tube placement today. 03/21 remains sedated, orally intubated on mechanical ventilation. Flolan inhaled stopped today. Switched to PRVC mode mechanical ventilation from PC/AC. 03/22:Remains sedated, orally intubated on mechanical ventilation. Deep decreased to +10, FiO2 55%. 03/23: Arouses on lightening sedation, moving all 4 extremities. Orally intubated on mechanical ventilation. On PEEP of +10, FiO2 50% 03/24: Sedated, arousable, orally intubated on mechanical ventilation. PEEP +10 , FiO2 60% today. 03/25: Remains sedated, orally intubated on mechanical ventilation. PEEP of +10 , FiO2 50%. Minimal blood-tinged respiratory secretions noted. Heparin drip stopped 03/25 03/26: Remains sedated, orally intubated on mechanical ventilation. PEEP remains at +10, FiO2 60%. Discussed with Dr. Bal, doubt patient can tolerate bronchoscopies hence he is planning to do tracheostomy in the OR. 03/27: Sedated, arousable, remains orally intubated on mechanical ventilation. Awaiting tracheostomy in the OR which is scheduled for tomorrow. 03/28: Sedated, arousable, remains orally intubated on mechanical ventilation at the time of my evaluation in the morning. Subsequently taken for tracheostomy 03/29: Afebrile. Patient remains sedated and intubated. He is status post tracheostomy. PEEP remains at 10,FIO2 60%. 03/30 Sedated, tracheostomy postop day 2, patient continues to have high ventilatory requirements PEEP of 10, and able to perform CPAP trials. Previously patient was noted to be bleeding from endotracheal to prior to tracheostomy. Will initiate heparin subcutaneous DVT prophylaxis, and closely monitor before beginning full anticoagulation of heparin. 03/31: Afebrile. Will begin heparin infusion today, and closely monitor for signs of bleeding. The patient was on subcutaneous heparin yesterday without any evidence of bleeding. The patient remains on a PEEP of 10 with high O2 requirements, continue attempts at weaning. 04/01: The patient was started on full anticoagulation last evening, no evidence of bleeding, remains therapeutic. FiO2 was weaned to 50%. CPAP trials are underway. Chest x-ray slightly improved today. 04/02: The patient tolerated CPAP trials for approximately 4 hours yesterday. Today CPAP trials attempted, unsuccessful. The patient continues on heparin infusion and Versed and fentanyl to maintain ventilator synchrony. 04/03: Afebrile. The patient fell CPAP trials today. He continues on Versed and fentanyl infusions for ventilator synchrony. Heparin infusion continued no active signs of bleeding. 04/04: The patient continues to fail CPAP trials .The patient gets extremely anxious and agitated when lessening the sedation. Haldol added to the medication regimen. Patient continues on heparin infusion, with no active signs of bleeding. Objective Vital Signs Date Time Temp Pulse Resp B/P Pulse Ox O2 Delivery O2 Flow Rate FiO2 04/04/17 14:57 96 50 04/04/17 06:00 70 04/04/17 04:00 98.9 22 102/57 Intake and Output 04/03/17 04/03/17 04/03/17 07:59 15:59 23:59 Intake Total 669 ml 1155 ml 1314 ml Output Total 300 ml 1150 ml 500 ml Balance 369 ml 5 ml 814 ml Result Diagram: 04/03/17 0254 04/04/17 0337 Imaging Last Impressions Chest X-Ray 04/01/17 0600 Signed Impressions: Service Date/Time: Saturday, April 01, 2017 03:29 - CONCLUSION: Cardiomegaly with interstitial edema, slightly improved. Fernando Mack MD Upper Extremity Ultrasound 03/14/17 0000 Signed Impressions: Service Date/Time: Tuesday, March 14, 2017 18:49 - CONCLUSION: 1. Thrombus throughout the cephalic veins bilaterally. These are superficial venous structures. 2. Questionable minimal thrombus within the left subclavian vein. Garrick Hinton Jr., MD CT Angiography 03/02/17 1206 Signed Impressions: Service Date/Time: Thursday, March 02, 2017 13:46 - CONCLUSION: 1. No pulmonary embolus identified. 2. Small bilateral effusions with significant dependent atelectasis bilaterally. Riley Bob MD Lower Extremity Ultrasound 02/27/17 0000 Signed Impressions: Service Date/Time: Monday, February 27, 2017 08:31 - CONCLUSION: Normal examination. Nick Farrell MD Abdomen X-Ray 02/24/17 0000 Signed Impressions: Service Date/Time: Friday, February 24, 2017 10:43 - CONCLUSION: 1. Nasogastric tube just across the GE junction. 2. Minimal nonspecific bowel gas dilatation. Artur Bob MD FACR Last Impressions Chest X-Ray 03/30/17 0600 Signed Impressions: Service Date/Time: Thursday, March 30, 2017 03:35 - CONCLUSION: Cardiomegaly with interstitial edema. Status post CABG. Fernando Mack MD Upper Extremity Ultrasound 03/14/17 0000 Signed Impressions: Service Date/Time: Tuesday, March 14, 2017 18:49 - CONCLUSION: 1. Thrombus throughout the cephalic veins bilaterally. These are superficial venous structures. 2. Questionable minimal thrombus within the left subclavian vein. Garrick Hinton Jr., MD CT Angiography 03/02/17 1206 Signed Impressions: Service Date/Time: Thursday, March 02, 2017 13:46 - CONCLUSION: 1. No pulmonary embolus identified. 2. Small bilateral effusions with significant dependent atelectasis bilaterally. Riley Bob MD Lower Extremity Ultrasound 02/27/17 0000 Signed Impressions: Service Date/Time: Monday, February 27, 2017 08:31 - CONCLUSION: Normal examination. Nick Farrell MD Abdomen X-Ray 02/24/17 0000 Signed Impressions: Service Date/Time: Friday, February 24, 2017 10:43 - CONCLUSION: 1. Nasogastric tube just across the GE junction. 2. Minimal nonspecific bowel gas dilatation. Artur Bob MD FACR Last Impressions Chest X-Ray 03/18/17 0000 Signed Impressions: Service Date/Time: Saturday, March 18, 2017 08:43 - CONCLUSION: Left lower lobe consolidation/atelectasis and likely some effusion. Nick Menchaca MD Upper Extremity Ultrasound 03/14/17 0000 Signed Impressions: Service Date/Time: Tuesday, March 14, 2017 18:49 - CONCLUSION: 1. Thrombus throughout the cephalic veins bilaterally. These are superficial venous structures. 2. Questionable minimal thrombus within the left subclavian vein. Garrick Hinton Jr., MD CT Angiography 03/02/17 1206 Signed Impressions: Service Date/Time: Thursday, March 02, 2017 13:46 - CONCLUSION: 1. No pulmonary embolus identified. 2. Small bilateral effusions with significant dependent atelectasis bilaterally. Riley Bob MD Lower Extremity Ultrasound 02/27/17 0000 Signed Impressions: Service Date/Time: Monday, February 27, 2017 08:31 - CONCLUSION: Normal examination. Nick Farrell MD Abdomen X-Ray 02/24/17 0000 Signed Impressions: Service Date/Time: Friday, February 24, 2017 10:43 - CONCLUSION: 1. Nasogastric tube just across the GE junction. 2. Minimal nonspecific bowel gas dilatation. Artur Bob MD FACR Objective Remarks GENERAL: Patient is 66 yo obese male sedated SKIN: Warm and dry. HEAD: Normocephalic. EYES: No scleral icterus. No injection or drainage. NECK: Supple, trachea midline. No JVD or lymphadenopathy. Tracheostomy in situ no erythema or drainage noted. Sutures in situ CARDIOVASCULAR:Tachycardic without murmurs, gallops, or rubs. RESPIRATORY: On mechanical ventilation, orally intubated, Breath sounds equal bilaterally. Few Coarse BS GASTROINTESTINAL: Abdomen soft, non-tender, nondistended. Normoactive bowel sounds MUSCULOSKELETAL: 2+ bilateral edema in B/L upper extremities Neuro: Sedated, arousable, moves all 4 extremities on lightening sedation, skin extremely agitated. Date of Removal: Mar 04, 2017 Line: Central Venous Catheter Side: Right A/P Assessment and Plan 1. Acute hypercapnic and hypoxemic respiratory failure. 2. COPD exacerbation. 3. Acute renal failure. 4. Hypernatremia 5. Obstructive sleep apnea and morbid obesity. 6. Ischemic dilated Cardiomyopathy. S/P AICD 03/2015 7. History of coronary artery disease. 8. Gastroesophageal reflux disease. 9. Hypertension. 10. Hyperlipidemia. 11 Pulm edema 12. Acute on chronic systolic and diastolic CHF 13. Pulmonary hypertension 14. Bacteremia Plan: Neuro: On Versed and Fentanyl infusion for sedation. Haldol added to medication regime secondary to agitation .Daily sedation vacation Monitor neuro status CV: Monitor HR and BP keep MAP>65mmHg. On Lopressor 12.5mg BID for rate control. On aspirin 325 milligrams p.o. daily and Plavix 75 mg p.o. daily - holding starting 03/22 in anticipation of tracheostomy. Prinivil 5mg daily 01/2017 Echo showed EF 40-45%, nl LV diastolic function, No RWMA Cardiology following-Dr. Cole Pulm: PRVC mode mechanical ventilation: rate 12 tidal volume 600 I time 1.1 second PEEP 10 FiO2 60% Continue with vent support. Tracheostomy in OR by Dr. Kirkland on 03/28 evening Bronchodilators every 4 hours, Solu-Medrol 40 mg IV BID. Pulm-Dr. Lashell Padron CXR: LLL consolidation/Atelectasis CTA chest 03/02 showed no PE, small pleural effusions Flolan inhaled nebulizer treatment stopped 03/21. Heparin GTT held on 03/25 in view of blood-tinged respiratory secretions 03/28 tracheostomy- Dr. Matthew, planned suture removal 04/04 : Monitor renal function Is and Os and avoid nephrotoxins. Electrolytes replacement per protocol. Lasix 40mg daily Decrease Free water 100 ml Q8 on 03/22, monitor sodium level GI: On Protonix 40 mg IV daily for GI prophylaxis. TF(Glucerna 1.5 @45ml/hr. S/P PEG tube placement 03/20 Senna, Colace for bowel regimen, 02/24 KUB abdomen: Minimal non-specific bowel gas dilatation GI is following for anemia and positive Hemoccult. ID: ID following- Dr. Young. Stopped antibiotics on 03/23 (Vancomycin, Levaquin) monitor for signs of infections ( Fever, WBC) . Leukocytosis resolving 03/16 C-diff PCR negative 03/14: BC: NGTD 03/14: Normal resp tiffany, urine cx: No growth 03/09 Repeat Bld cultures-staph Epi, coag negative staph- likely contaminant 03/09 Repeat sputum culture-staph aureus Heme: Monitor CBC. Heparin GTT held on 03/25. Heparin infusion restarted 03/31 . Repeat ultrasound bilateral upper extremities and lower extremities Endo: SSI with Accu-Chek q. 6-hour for glycemic control. GI prophylaxis with Protonix 40 mg BID and DVT prophylaxis with SCDs, and heparin infusion Doppler US UE: 03/14-Thrombus throughout the cephalic veins bilaterally. ? minimal thrombus within the left subclavian vein. Was off Heparin drip as patient had bloody secretions with suctioning ( resolved ) and positive Hemoccult. Heparin resumed (cleared by GI) and subsequently stopped on 03/25 due to blood tinged respiratory secretions, resumed 03/31 Doppler US LE No DVT on 02/27 Dispo: Discussed with Mrs. Doran and [employer]Y FOREMAN, Palliative care is following. Mrs. Doran requests restraints be removed from patient, she was educated and patient safety, and understands that removal of tubes and lines can be deleterious for the patient's life. This patient remains critically ill with one or more organ systems which are or may become a threat to life. I have spent in excess of 33 minutes discontinuously in the care and management of this patient. This time is exclusive of procedures, and includes, but is not limited to, evaluation of the patient, review of the medical record, discussions with family, consultants, nursing staff, or respiratory therapy, and documentation in the medical record. Physician Rolanda Maria MD April 04, 2017 15:34
[2017-04-04] MEDS ORDERED: HALOPERIDOL LACTATE ORAL CONC 10 MG/5 ML CUP PO ONE (16:00)
[2017-04-04] MEDS: ATORVASTATIN 40 MG TAB PO SCH (21:54)
[2017-04-04 22:07] LABS: MAGNESIUM 2.5 MG/DL (1.5-2.5)
[2017-04-04 22:10] LABS: POTASSIUM 5.3 MEQ/L (3.5-5.1)
[2017-04-05] VITALS (18 sets, daily range): BP systolic 107–140; BP diastolic 60–71; PULSE 69–121; RESP 16–27; TEMP 98.1–98.9; O2SAT 95–100
[2017-04-05] MEDS: PROPOFOL 1000 MG/100 ML INJ 100 ML IV SCH ×6 (03:25→21:22)
[2017-04-05] MEDS: INSULIN NovoLIN REGULAR SUPPLEMENTAL SCALE SQ SCH ×4 (05:00→23:00)
--- NOTE | 2017-04-05 05:08 | RADRPT ---
EXAM DATE/TIME: 04/05/2017 03:52 [facility] COMPARISON: CHEST SINGLE AP, April 02, 2017, 4:43. INDICATIONS : Shortness of breath, possible pulmonary disease. MEDICAL HISTORY : Hypertension. Chronic obstructive pulmonary disease. Congestive heart failure. SURGICAL HISTORY : Pacemaker. CABG. Coronary artery stent. ENCOUNTER: Subsequent ACUITY: 1 month PAIN SCORE: Non-responsive. LOCATION: Bilateral chest FINDINGS: A single portable frontal view of the chest shows a tracheostomy tube, left-sided pacing device, and median sternotomy wires. Heart is mildly enlarged. Right lower lobe infiltrate is more localized than on the prior study. Left lung clear. No effusions. CONCLUSION: Right lower lobe infiltrate more localized than on the prior study. Garrick Hinton Jr., MD on April 05, 2017 at 5:06 Board Certified Radiologist. This report was verified electronically.
[2017-04-05] MEDS: FREE WATER G-TUBE SCH ×3 (05:54→21:23)
[2017-04-05 06:19] LABS: BICARBONATE 28.2 MEQ/L (21.0-32.0); MAGNESIUM 2.4 MG/DL (1.5-2.5); POTASSIUM 4.7 MEQ/L (3.5-5.1)
[2017-04-05 06:34] LABS: APTT (PATIENT) 28.7 SEC (24.3-30.1)
[2017-04-05] MEDS: fentaNYL DRIP 250 ML IV SCH ×2 (07:09→17:54)
[2017-04-05 07:58] LABS: HEMATOCRIT 31.5 % (39.0-51.0); MEAN CELL VOLUME 91.1 FL (80.0-100.0); MEAN CORPUSCULAR HGB CONC 31.9 % (32.0-36.0); PLATELET COUNT 169 TH/MM3 (150-450); RED BLOOD COUNT 3.46 MIL/MM3 (4.50-5.90); RED CELL DISTRIBUTION WIDTH 18.2 % (11.6-17.2); REVIEW FLAG FINAL; WHITE BLOOD COUNT 9.8 TH/MM3 (4.0-11.0)
[2017-04-05] MEDS: LISINOPRIL 5 MG TAB PO SCH (09:00)
[2017-04-05] MEDS: METOPROLOL TARTRATE 25 MG TAB PO SCH ×3 (09:00→21:05)
[2017-04-05] MEDS: predniSONE 20 MG TAB PO SCH (09:26)
[2017-04-05] MEDS: HALOPERIDOL LACTATE ORAL CONC 10 MG/5 ML CUP PO SCH (09:26)
[2017-04-05] MEDS: PANTOPRAZOLE SODIUM 40 MG VIAL IV SCH (09:26)
[2017-04-05] MEDS: CHLORHEXIDINE 0.12% (ORAL KIT) 15 ML CUP MT SCH ×2 (09:27→21:05)
[2017-04-05] MEDS: FUROSEMIDE 40 MG/4 ML VIAL IV PUSH SCH (09:27)
--- NOTE | 2017-04-05 14:37 | HHI.HCPN ---
Reason for visit a. To assist with evaluation and management of symptoms including: dyspnea, pain b. To assist medical decision maker(s) with: better understanding of current medical conditions; weighing benefits/burdens of medical treatment options; making medical treatment decisions. . (Sapphire Chen) Subjective/Interval History Palliative care to follow-up for further clarifications of goals of care and emotional support. Patient remains on mechanical ventilation via tracheostomy. Currently on 45% FiO2 and PEEP of 8. Continue not tolerating CPAP trials. Periods of agitation/restlessness requiring Versed drip and addition of Haldol. Laboratory today showing WBC 9.8, Hgb 10.0, platelet count 169. Sodium 139, potassium 4.3, BUN/creatinine 18/0.38. Chest x-ray today showing right lower lobe infiltrate more localized. Patient afebrile, stable hemodynamically. Patient seen in ICU. Eyes open but not tracking or following any commands. Not attempting to communicate during my visit. at bedside, she reports that she remains in close communication with all of her 6 children who remain in [place]. tells me that she had a conversation with patient's brother this afternoon. As per , patient's brother asking her "not to let him suffer anymore". verbalized feeling guilty about patient's condition and inability to wean off ventilator support. tells me that she is closer at making a decision regarding withdrawal life support/transition to comfort- directed care given his clinical condition and likelihood of remaining vent dependent. further tells me that patient would of never be in agreement of usp placement and that she is aware that patient's condition is not improving. Patient's was encouraged to further discuss goals of care with her 6 children who remain in [place]. Reviewed with her withdrawal process to include sign documentation, medications for symptom management before , during and after withdrawal. Discussed that AICD needs to be deactivated prior to withdrawal. Palliative care to follow-up with patient's tomorrow 04/06/17 at noon for further clarifications of goals of care. . Family/friend interactions See interval note. . (Sapphire Chen) Advance Directives Living Will: Never completed Health Care Surrogate: Never completed Durable Power of Process Description Writer: Never completed (Sapphire Chen) Advance Directive Specifics Health Care Surrogate(s): Brooke Doran - [phone] (home), or [phone] (cellvoicemail not set up) Significant change in goals: No code. Patient's considering transition patient to comfort directed care /withdrawal of life support. Palliative care to follow-up. . (Sapphire Chen) Objective Vital Signs Date Time Temp Pulse Resp B/P Pulse Ox O2 Delivery O2 Flow Rate FiO2 04/05/17 12:23 95 45 04/05/17 12:00 93 04/05/17 12:00 45 04/05/17 12:00 98.7 92 23 115/64 95 04/05/17 10:00 112 04/05/17 09:45 97 45 04/05/17 08:00 70 04/05/17 08:00 45 04/05/17 08:00 98.9 91 27 140/61 98 04/05/17 06:00 69 04/05/17 05:05 98 45 04/05/17 04:00 98.1 70 16 107/60 98 04/05/17 04:00 70 04/05/17 04:00 45 04/05/17 02:00 69 04/05/17 01:31 100 45 04/05/17 00:00 45 04/05/17 00:00 69 04/05/17 00:00 98.4 69 16 114/66 100 04/04/17 23:10 100 45 04/04/17 22:00 71 04/04/17 20:00 45 04/04/17 20:00 99.2 70 16 102/54 97 04/04/17 20:00 70 04/04/17 17:00 73 17 108/59 95 04/04/17 16:30 92 32 107/74 98 04/04/17 16:01 98.4 96 27 100/78 94 04/04/17 16:00 85 37 95 04/04/17 16:00 45 04/04/17 15:31 70 16 95/60 95 04/04/17 15:25 83 16 115/57 91 04/04/17 15:12 83 16 98/54 94 04/04/17 15:01 111 43 155/67 95 04/04/17 15:00 98 19 96 04/04/17 14:57 96 50 Intake & Output 04/05/17 04/05/17 07:00 19:00 Intake Total 1819 ml Output Total 800 ml 0 ml Balance 1019 ml 0 ml IV Total 764 ml Tube Feeding 695 ml Other 360 ml Output Urine Total 800 ml Tube Feeding Residual Discard 0 ml Physical Exam CONSTITUTIONAL/GENERAL: This is an adequately nourished patient, eyes open but not tracking. Not following any commands. Not attempting to communicate. TUBES/LINES/DRAINS: PIV's, PEG tube, tracheostomy, cabrera catheter, bilateral soft wrist restraints. SKIN: No jaundice, rashes, or lesions. Scatter ecchymoses on upper extremities. Skin temperature appropriate. Diaphoretic. HEAD: Atraumatic. Normocephalic. EYES: Pupils equal and round and reactive. No scleral icterus. No injection or drainage. ENT: Tracheostomy in place. NECK: Trachea midline. Supple, CARDIOVASCULAR: No murmurs, gallops, or rubs. Peripheral pulses symmetric. Edema to upper extremities left hand worsened right hand. RESPIRATORY/CHEST: Symmetric. Mildly coarse breath sounds bilaterally. Symmetric air movement. Remains on vent support via trach. GASTROINTESTINAL: Abdomen soft, round. Positive bowel sounds. GENITOURINARY: Without palpable bladder distension. catheter in place. MUSCULOSKELETAL: Edema in upper extremities. Extremities without clubbing, cyanosis. NEUROLOGICAL: Eyes open but not tracking. Not following commands or attempting to communicate during my visit. Restless during my visit. PSYCHIATRIC: Restless. Crying. (Sapphire Chen) Diagnostic Tests Laboratory Laboratory Tests Test 04/02/17 04/02/17 04/03/17 04/04/17 17:22 20:32 02:54 03:37 White Blood Count 14.0 TH/MM3 11.3 TH/MM3 (4.0-11.0) (4.0-11.0) Red Blood Count 3.37 MIL/MM3 3.41 MIL/MM3 (4.50-5.90) (4.50-5.90) Hemoglobin 9.6 GM/DL 9.9 GM/DL (13.0-17.0) (13.0-17.0) Hematocrit 30.6 % 31.1 % (39.0-51.0) (39.0-51.0) Mean Corpuscular Volume 91.0 FL 91.1 FL (80.0-100.0) (80.0-100.0) Mean Corpuscular Hemoglobin 28.6 PG 29.1 PG (27.0-34.0) (27.0-34.0) Mean Corpuscular Hemoglobin 31.5 % 31.9 % Concent (32.0-36.0) (32.0-36.0) Red Cell Distribution Width 17.2 % 17.9 % (11.6-17.2) (11.6-17.2) Platelet Count 165 TH/MM3 152 TH/MM3 (150-450) (150-450) Mean Platelet Volume 8.4 FL 8.8 FL (7.0-11.0) (7.0-11.0) Activated Partial 43.6 SEC 43.6 SEC 44.2 SEC Thromboplast Time (24.3-30.1) (24.3-30.1) (24.3-30.1) Neutrophils (%) (Auto) 83.7 % (16.0-70.0) Lymphocytes (%) (Auto) 9.5 % (9.0-44.0) Monocytes (%) (Auto) 5.8 % (0.0-8.0) Eosinophils (%) (Auto) 0.4 % (0.0-4.0) Basophils (%) (Auto) 0.6 % (0.0-2.0) Neutrophils # (Auto) 9.4 TH/MM3 (1.8-7.7) Lymphocytes # (Auto) 1.1 TH/MM3 (1.0-4.8) Monocytes # (Auto) 0.6 TH/MM3 (0-0.9) Eosinophils # (Auto) 0.0 TH/MM3 (0-0.4) Basophils # (Auto) 0.1 TH/MM3 (0-0.2) CBC Comment AUTO DIFF Differential Total Cells 100 Counted Neutrophils % (Manual) 78 % (16-70) Band Neutrophils % 1 % (0-6) Lymphocytes % 6 % (9-44) Monocytes % 7 % (0-8) Eosinophils % 1 % (0-4) Basophils % 1 % (0-2) Neutrophils # (Manual) 9.6 TH/MM3 (1.8-7.7) Metamyelocytes 1 % (0-1) Myelocytes 5 % (0-0) Differential Comment FINAL DIFF MANUAL Platelet Estimate NORMAL (NORMAL) Platelet Morphology Comment NORMAL (NORMAL) Sodium Level 140 MEQ/L 144 MEQ/L (136-145) (136-145) Potassium Level 3.7 MEQ/L 3.2 MEQ/L (3.5-5.1) (3.5-5.1) Chloride Level 103 MEQ/L 102 MEQ/L (98-107) (98-107) Carbon Dioxide Level 32.2 MEQ/L 33.1 MEQ/L (21.0-32.0) (21.0-32.0) Anion Gap 5 MEQ/L (5-15) 9 MEQ/L (5-15) Blood Urea Nitrogen 21 MG/DL (7-18) 20 MG/DL (7-18) Creatinine 0.46 MG/DL 0.41 MG/DL (0.60-1.30) (0.60-1.30) Estimat Glomerular Filtration 182 ML/MIN 208 ML/MIN Rate (>89) (>89) Random Glucose 102 MG/DL 96 MG/DL (74-106) (74-106) Calcium Level 9.2 MG/DL 9.1 MG/DL (8.5-10.1) (8.5-10.1) Phosphorus Level 2.7 MG/DL 2.8 MG/DL (2.5-4.9) (2.5-4.9) Magnesium Level 2.4 MG/DL 2.4 MG/DL (1.5-2.5) (1.5-2.5) Test 04/04/17 04/05/17 04/05/17 21:38 04:15 07:01 Potassium Level 5.3 MEQ/L 4.7 MEQ/L (3.5-5.1) (3.5-5.1) Magnesium Level 2.5 MG/DL 2.4 MG/DL (1.5-2.5) (1.5-2.5) Activated Partial 28.7 SEC Thromboplast Time (24.3-30.1) Sodium Level 139 MEQ/L (136-145) Chloride Level 103 MEQ/L (98-107) Carbon Dioxide Level 28.2 MEQ/L (21.0-32.0) Anion Gap 8 MEQ/L (5-15) Blood Urea Nitrogen 18 MG/DL (7-18) Creatinine 0.38 MG/DL (0.60-1.30) Estimat Glomerular Filtration 227 ML/MIN Rate (>89) Random Glucose 74 MG/DL (74-106) Calcium Level 8.9 MG/DL (8.5-10.1) Phosphorus Level 3.1 MG/DL (2.5-4.9) White Blood Count 9.8 TH/MM3 (4.0-11.0) Red Blood Count 3.46 MIL/MM3 (4.50-5.90) Hemoglobin 10.0 GM/DL (13.0-17.0) Hematocrit 31.5 % (39.0-51.0) Mean Corpuscular Volume 91.1 FL (80.0-100.0) Mean Corpuscular Hemoglobin 29.0 PG (27.0-34.0) Mean Corpuscular Hemoglobin 31.9 % Concent (32.0-36.0) Red Cell Distribution Width 18.2 % (11.6-17.2) Platelet Count 169 TH/MM3 (150-450) Mean Platelet Volume 8.6 FL (7.0-11.0) (Sapphire Chen) Result Diagram: 04/05/1701 04/05/17414 Imaging Last Impressions Chest X-Ray 04/05/17599 Signed Impressions: Service Date/Time: March 03:52 - CONCLUSION: Right lower lobe infiltrate more localized than on the prior study. Garrick Hinton Jr., MD Upper Extremity Ultrasound 04/04/17599 Signed Impressions: Service Date/Time: Tuesday, April 04, 2017 09:32 - CONCLUSION: Occlusive thrombus in both cephalic veins. The veins are patent. I cannot see more medial than the axillary veins. Artur Bob MD FACR Lower Extremity Ultrasound 04/04/17599 Signed Impressions: Service Date/Time: Tuesday, April 04, 2017 08:54 - CONCLUSION: No DVT in either lower extremity. Fernando Mack MD CT Angiography 03/02/17 1206 Signed Impressions: Service Date/Time: Thursday, March 02, 2017 13:46 - CONCLUSION: 1. No pulmonary embolus identified. 2. Small bilateral effusions with significant dependent atelectasis bilaterally. Riley Bob MD Abdomen X-Ray 02/24/17 0000 Signed Impressions: Service Date/Time: Friday, February 24, 2017 10:43 - CONCLUSION: 1. Nasogastric tube just across the GE junction. 2. Minimal nonspecific bowel gas dilatation. Artur Bob MD FACR Procedures * Central line placement * PEG tube placement * Tracheostomy 03/28/17 . (Sapphire Chen) Assessment and Plan Disease Oriented Problem List: (1) Acute respiratory failure (2) COPD with acute exacerbation Comment: Currently intubated with FiO2 of 50%. Not tolerating CPAP trials. (3) Ischemic dilated cardiomyopathy Comment: EF 20% (4) Atrial flutter Comment: Has PPM with AICD (5) COPD (chronic obstructive pulmonary disease) Symptom Scale: (1) Pain 0-10 Scale: Unable to quantify Comment: History of arthritis with shoulder ORIF. Other sources of pain include prolonged bedbound status; cabrera catheter; venous access lines; tracheostomy . (2) Dyspnea 0-10 Scale: Unable to quantify Comment: COPD exacerbation, now vent dependent . (3) Restlessness and agitation 0-10 Scale: Unable to quantify Comment: Haldol daily. 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 Important Contacts Brooke Doran - [phone] (home), or [phone] (cellvoicemail not set up) . Prognosis Patient may survive ICU and hospital, but [facility] prognosis is poor given underlying lung status and severity of his cardiomyopathy. If he does survive the hospitalization, there is a high probability of recurrent hospitalizations and fairly dependent functional status between. Hopefully, he will have a greater chance of weaning now that his has trach in place. . Code Status: No Code Plan * CODE STATUS: No code. DNR. * HEALTHCARE DECISION-MAKER: Patient incapacitated at this time secondary to clinical condition. Unclear if he will regain capacity. Healthcare proxy is Brooke. * GOALS OF CARE: 04/05/17, patient's currently considering transition patient to comfort-directed care/withdrawal life support given poor prognosis. Patient not tolerating CPAP trials, day #41 of ventilator support. to further discuss goals of care with their 6 children who are in [place]. Palliative care to follow-up tomorrow 04/06/17 at noon. -As per , patient's brother asking her "not to let patient suffer anymore". verbalized feeling guilty about patient's condition and inability to wean off ventilator support. tells me that she is closer at making a decision regarding withdrawal life support/transition to comfort-directed care given his clinical condition and likelihood of remaining vent dependent. further tells me that patient would of never be in agreement of usp placement and that she is aware that patient's condition is not improving. Patient's was encouraged to further discuss goals of care with her 6 children who remain in [place]. Reviewed with her withdrawal process to include sign documentation, medications for symptom management before, during and after withdrawal. Discussed that AICD needs to be deactivated prior to withdrawal. * SYMPTOMS: = Shortness of breath, currently vent dependent at this time. FiO2 45%. Continue failing CPAP trials. Hx of severe COPD and CAD with cardiomyopathy status post PPM/AICD with an EF of 20%. ==Debility, secondary to prolonged hospitalization. Likely to continue to worsen. == Pain, secondary to prolonged bedrest, trach. Currently on fentanyl drip. == Agitation/ restlessness: Haldol was added. * Case discussed with bedside RN. * Ongoing emotional support and active listening provided. Spiritual care following. * Palliative care contact information has been provided to patient's . Encouraged to provide my contact information to their children for questions. * Palliative care will continue to follow-up patient and family for further clarifications of goals of care as patient's clinical course continues to evolve. . (Sapphire Chen) Time Spent Total Floor Time (mins): 48 (Total time to include review medical records, physical exam, conversation with patient's . Case discussed with bedside RN.) >50% Counseling/Coord of Care: Yes (Sapphire Chen) Attestation To help prompt me to consider important information that might be impacting today's encounter and assessment, information from prior notes written by myself or my colleagues may have been "brought forward" into today's note. My signature on this note, however, is an attestation that I personally performed the exam, history, and/or decision-making noted today, and, unless otherwise indicated, the interactions with patient, family, and staff as well as the review of records all occurred today. I also attest that the listed assessment and stated plan reflect my best clinical judgment today based on the combination of historical information, prior notes, and today's exam/ interactions. When time spent is documented, it refers only to time spent today by the signer, or if indicated, combined time spent today by collaborating physician/nurse practitioner. (Sapphire Chen) Collaborating MD Comments . Chart reviewed. Case discussed with palliative care HEALTH INFORMATION CLERK. I have reviewed above HEALTH INFORMATION CLERK note and I concur. . (Ishmael Wiley MD) Sapphire Chen April 05, 2017 14:37 Ishmael Wiley MD April 24, 2017 12:29
--- NOTE | 2017-04-05 16:35 | HHI.CCPN ---
Subjective Remarks/Hospital Course The patient is a 66-year-old male with past medical history of COPD, cardiomyopathy, hypertension, gastroesophageal reflux disease, hyperlipidemia and coronary artery disease. The patient presented to [facility] ED with a 2-week history of progressive worsening shortness of breath. On arrival to the ED he was initially placed on a non-rebreather mask and ABG was performed which showed acute hypercapnic respiratory failure with a pH of 7.14, CO2 121, pAO2 141, bicarb 40, sats 93%. His laboratory data significant for hyperkalemia with potassium level 6.0 and acute renal failure with a BUN of 43 and creatinine 2.07 respectively. The chest x-ray showed cardiomegaly and findings of vascular congestion without overt failure. In the ED the patient was intubated with etomidate and rocuronium and placed on full mechanical ventilation. In addition, he is scheduled to receive 10 units IV regular insulin, 1 amp of D50 and calcium gluconate for hyperkalemia. He received cefepime, azithromycin, Solu-Medrol 125 milligrams IV push and bronchodilator treatment. When seen the patient is on Diprivan infusion for sedation and full mechanical ventilation. Per the patient is not on any oxygen at home and he occasionally smokes cigarettes. 02/24 Patient is intubated and sedated with Diprivan and Fentanyl. Switched to PC/ AC with RR 12, IP:24, IT:1.06, PEEP: 8 and FIO2 100%. CXR this morning showed interval development of bilateral perihilar and lower lung zone airspace opacity he was given Lasix 60mg total overnight. 02/25 Patient remains sedated and intubated with Diprivan and Fentanyl. Afebrile.On PC/AC with RR 12, IP:22, IT:1.10, PEEP:10, FIO2 70%. Afebrile. Renal function worse today with Cr: 1.90 from 1.72 UO: 1150ml in 24 hrs 02/26 No acute events overnight. Sedated with Fentanyl and Diprivan and intubated. Afebrile. His O2 requirements is less now on PC/AC with IP:22, IT: 1.1 with PEEP: 10 and FIO2 55%. Renal function improving with Cr: 1.42 today from 1.90. Tolerating tube feeds. 02/27 Patient remains sedated with Diprivan and Fentanyl infusion and intubated. Afebrile. 02/28: Remains sedated, orally intubated on mechanical ventilation. Being diuresed with Bumex. Tolerating tube feeds. 03/01: Remains sedated, orally intubated on mechanical ventilation. Being diabetes. Remains on PEEP of 10 and FiO2 60% 03/02 Patient remains sedated with Diprivan and Fentanyl and intubated. On PC/AC with PEEP: 10 and FIO2 80% overnight and sats 93-94%. Afebrile. 03/03: The patient remains on high respiratory requirements PEEP of 10, and FiO2 70%. 03/04: Tmax 99.9. Overnight the patient was noted to have desaturations the patient received a bolus of midazolam and fentanyl for ventilator dyssynchrony. The patient was redosed with Diamox with approximately 2.5 L diuresis in the last 12 hours. The patient continues on an FiO2 of 70% with PEEP of 10 to maintain an O2 sat of 90%. 03/05: Afebrile. Patient's FiO2 remains at 60% to maintain O2sat ranging in 92% . Future plans for tracheostomy discussed with when ventilator requirements are decreased. Patient currently is on a PEEP of 10. Patient receiving multiple doses of diuretics chest x-ray still showing increased vascular congestion. Cardiology following metalazone added to medication regimen per cardiology for diuresis. 03/06: Patient's O2 requirements were increased overnight to FiO2 of 90%. The patient's FiO2 has been decreased now currently to 70% O2 sat is 90% ABG is pending. The patient's diuresis effective, 1 kg weight loss in 24 hours. 03/07: The patient continues to have effective diuresis. The patient's O2 requirements currently FiO2 is 70% to maintain a sat of 90-91%. Discussion with Ms. London yesterday, she would like to discuss with palliative team goals of care. Palliative care consult initiated. 03/08: The patient was less responsive to diuretics today, positive weight balance last 24 hours. The patient was placed on a Lasix infusion, noted occasional PVCs on telemetry. Patient potassium repletion ongoing, schedule potassium PO intake increased to 50 mEq twice a day. Free water flushes placed on hold, was sodium level 145 will continue to monitor. Chest x-ray shows slight improvement. Continued management of ventilator settings ARDS protocol, maintaining PaO2 60 or greater and adjusting vent settings based on PaO2. Sedation vacation attempted today by [employer], GCS 11T. Noted WBC elevation today ID consulted. 03/09: Today the patient was noted to have increasing FiO2 requirements with a PaO2 of 61. FiO2 was increased to 100%, PEEP was gradually increased to 12, then 14. The patient subsequently became hypotensive, likely due to increasing PEEP, but chest x-ray also obtained to rule out pneumothorax which was clear. The patient subsequently was laced on phenylephrine low-dose 20 mcgs which was eventually weaned off. The patient was placed on PEEP at 7 and FiO2 of 100%, sedation was weaned to lower dose. Palliative care also discussed with goals of care and the patient was made DNR. 03/10 noted creatinine elevation last night, Lasix discontinued. Dobutamine initiated per cardiology this morning. The patient continues to have high requirements on a PEEP of 8 and FiO2 of 100% his PaO2 49.2. PEEP has been increased plan to initiate Flolan. 03/11: Tmax 100.5. FRANK resolved with dobutamine infusion, heart rate 110. Microbiology report bacteremia gram-positive cocci and sputum. Patient currently on Diflucan. Will begin Linezolid in the setting of recent FRANK and oliguria, and await further recommendations from infectious disease business systems consultant. Respiratory status deteriorating. The patient was placed on Flolan last night PaO2 67. Patient remains on a PEEP of 10, unable to advance secondary to hypotension. 03/12 Patient remains sedated with Diprivan, Fentanyl and intubated. On Dobutamine 2.5 mics and Flolan. Remains On PC/AC with RR 12, IP:22, IT:1.20, PEEP;10 and FIo2 90%. Afebrile. 03/13 Patient is sedated with Diprivan and Fentanyl and intubated. On PC/AC with PEEP:12, FIO2 80%. Tmax 101.7 Remains on Dobutamine and Flolan. 03/14 Patient remains sedated and intubated. On PC/AC with PEEP:12 and FIO2 100% . T: 101.5 last night. On Flolan off Dobutamine. 03/15 No acute events overnight. Sedated with Diprivan and Fentanyl. On PC/AC with PEEP: 12, FIO2 down to 70%. Tmax 101.6. On Flolan nebs. 03/16 Patient remains sedated and intubated On PC/AC with decrease in FIO2 requirements down to 65% FIO2 with PEEP: 12. Tmax 101.4. On Heparin drip. 03/17 Patient remains sedated and intubated. T: 99.7, heparin drip turned off as patient had bloody secretions with suctioning and Hemoccult was positive. 03/18 No acute events overnight. Remains sedated and intubated. Tmax 102.8. Off heparin drip patient has minimal bloody secretions. 03/19 Patient remains sedated with Diprivan and Fentanyl intubated. Afebrile. 03/20 No acute events overnight. Sedated and intubated. Tmax : 100.8. NPO for EGD and PEG tube placement today. 03/21 remains sedated, orally intubated on mechanical ventilation. Flolan inhaled stopped today. Switched to PRVC mode mechanical ventilation from PC/AC. 03/22:Remains sedated, orally intubated on mechanical ventilation. Deep decreased to +10, FiO2 55%. 03/23: Arouses on lightening sedation, moving all 4 extremities. Orally intubated on mechanical ventilation. On PEEP of +10, FiO2 50% 03/24: Sedated, arousable, orally intubated on mechanical ventilation. PEEP +10 , FiO2 60% today. 03/25: Remains sedated, orally intubated on mechanical ventilation. PEEP of +10 , FiO2 50%. Minimal blood-tinged respiratory secretions noted. Heparin drip stopped 03/25 03/26: Remains sedated, orally intubated on mechanical ventilation. PEEP remains at +10, FiO2 60%. Discussed with Dr. Bal, doubt patient can tolerate bronchoscopies hence he is planning to do tracheostomy in the OR. 03/27: Sedated, arousable, remains orally intubated on mechanical ventilation. Awaiting tracheostomy in the OR which is scheduled for tomorrow. 03/28: Sedated, arousable, remains orally intubated on mechanical ventilation at the time of my evaluation in the morning. Subsequently taken for tracheostomy 03/29: Afebrile. Patient remains sedated and intubated. He is status post tracheostomy. PEEP remains at 10,FIO2 60%. 03/30 Sedated, tracheostomy postop day 2, patient continues to have high ventilatory requirements PEEP of 10, and able to perform CPAP trials. Previously patient was noted to be bleeding from endotracheal to prior to tracheostomy. Will initiate heparin subcutaneous DVT prophylaxis, and closely monitor before beginning full anticoagulation of heparin. 03/31: Afebrile. Will begin heparin infusion today, and closely monitor for signs of bleeding. The patient was on subcutaneous heparin yesterday without any evidence of bleeding. The patient remains on a PEEP of 10 with high O2 requirements, continue attempts at weaning. 04/01: The patient was started on full anticoagulation last evening, no evidence of bleeding, remains therapeutic. FiO2 was weaned to 50%. CPAP trials are underway. Chest x-ray slightly improved today. 04/02: The patient tolerated CPAP trials for approximately 4 hours yesterday. Today CPAP trials attempted, unsuccessful. The patient continues on heparin infusion and Versed and fentanyl to maintain ventilator synchrony. 04/03: Afebrile. The patient fell CPAP trials today. He continues on Versed and fentanyl infusions for ventilator synchrony. Heparin infusion continued no active signs of bleeding. 04/04: The patient continues to fail CPAP trials .The patient gets extremely anxious and agitated when lessening the sedation. Haldol added to the medication regimen. Patient continues on heparin infusion, with no active signs of bleeding. 04/05: The patient continues to be agitated today unable to successfully apply CPAP trials . Extensive discussion with patient's , at this point she is considering withdrawal of care after talking with other family members. Positive care contacted to discuss goals of care and comfort measures process. Objective Vital Signs Date Time Temp Pulse Resp B/P Pulse Ox O2 Delivery O2 Flow Rate FiO2 04/05/17 14:00 69 04/05/17 12:23 95 45 04/05/17 12:00 98.7 23 115/64 Intake and Output 04/04/17 04/04/17 04/04/17 07:59 15:59 23:59 Intake Total 775 ml 1495 ml 1248 ml Output Total 400 ml 1200 ml 500 ml Balance 375 ml 295 ml 748 ml Result Diagram: 04/05/17 0701 04/05/17 0415 Imaging Last Impressions Chest X-Ray 04/05/17 0600 Signed Impressions: Service Date/Time: March 03:52 - CONCLUSION: Right lower lobe infiltrate more localized than on the prior study. Garrick Hinton Jr., MD Upper Extremity Ultrasound 04/04/17 0600 Signed Impressions: Service Date/Time: Tuesday, April 04, 2017 09:32 - CONCLUSION: Occlusive thrombus in both cephalic veins. The veins are patent. I cannot see more medial than the axillary veins. Artur Bbo MD FACR Lower Extremity Ultrasound 04/04/17 0600 Signed Impressions: Service Date/Time: Tuesday, April 04, 2017 08:54 - CONCLUSION: No DVT in either lower extremity. Fernando Mack MD CT Angiography 03/02/17 1206 Signed Impressions: Service Date/Time: Thursday, March 02, 2017 13:46 - CONCLUSION: 1. No pulmonary embolus identified. 2. Small bilateral effusions with significant dependent atelectasis bilaterally. Riley Bob MD Abdomen X-Ray 02/24/17 0000 Signed Impressions: Service Date/Time: Friday, February 24, 2017 10:43 - CONCLUSION: 1. Nasogastric tube just across the GE junction. 2. Minimal nonspecific bowel gas dilatation. Artur Bob MD FACR Last Impressions Chest X-Ray 04/01/17 06 Signed Impressions: Service Date/Time: Saturday, April 01, 2017 03:29 - CONCLUSION: Cardiomegaly with interstitial edema, slightly improved. Fernando Mack MD Upper Extremity Ultrasound 03/14/17 0000 Signed Impressions: Service Date/Time: Tuesday, March 14, 2017 18:49 - CONCLUSION: 1. Thrombus throughout the cephalic veins bilaterally. These are superficial venous structures. 2. Questionable minimal thrombus within the left subclavian vein. Garrick Hinton Jr., MD CT Angiography 03/02/17 1206 Signed Impressions: Service Date/Time: Thursday, March 02, 2017 13:46 - CONCLUSION: 1. No pulmonary embolus identified. 2. Small bilateral effusions with significant dependent atelectasis bilaterally. Riley Bob MD Lower Extremity Ultrasound 02/27/17 0000 Signed Impressions: Service Date/Time: Monday, February 27, 2017 08:31 - CONCLUSION: Normal examination. Nick Farrell MD Abdomen X-Ray 02/24/17 0000 Signed Impressions: Service Date/Time: Friday, February 24, 2017 10:43 - CONCLUSION: 1. Nasogastric tube just across the GE junction. 2. Minimal nonspecific bowel gas dilatation. Artur Bob MD FACR Last Impressions Chest X-Ray 03/30/17 0600 Signed Impressions: Service Date/Time: Thursday, March 30, 2017 03:35 - CONCLUSION: Cardiomegaly with interstitial edema. Status post CABG. Fernando Mack MD Upper Extremity Ultrasound 03/14/17 0000 Signed Impressions: Service Date/Time: Tuesday, March 14, 2017 18:49 - CONCLUSION: 1. Thrombus throughout the cephalic veins bilaterally. These are superficial venous structures. 2. Questionable minimal thrombus within the left subclavian vein. Garrick Hinton Jr., MD CT Angiography 03/02/17 1206 Signed Impressions: Service Date/Time: Thursday, March 02, 2017 13:46 - CONCLUSION: 1. No pulmonary embolus identified. 2. Small bilateral effusions with significant dependent atelectasis bilaterally. Riley Bob MD Lower Extremity Ultrasound 02/27/17 0000 Signed Impressions: Service Date/Time: Monday, February 27, 2017 08:31 - CONCLUSION: Normal examination. Nick Farrell MD Abdomen X-Ray 02/24/17 0000 Signed Impressions: Service Date/Time: Friday, February 24, 2017 10:43 - CONCLUSION: 1. Nasogastric tube just across the GE junction. 2. Minimal nonspecific bowel gas dilatation. Artur Bob MD FACR Last Impressions Chest X-Ray 03/18/17 0000 Signed Impressions: Service Date/Time: Saturday, March 18, 2017 08:43 - CONCLUSION: Left lower lobe consolidation/atelectasis and likely some effusion. Nick Menchaca MD Upper Extremity Ultrasound 03/14/17 0000 Signed Impressions: Service Date/Time: Tuesday, March 14, 2017 18:49 - CONCLUSION: 1. Thrombus throughout the cephalic veins bilaterally. These are superficial venous structures. 2. Questionable minimal thrombus within the left subclavian vein. Garrick Hinton Jr., MD CT Angiography 03/02/17 1206 Signed Impressions: Service Date/Time: Thursday, March 02, 2017 13:46 - CONCLUSION: 1. No pulmonary embolus identified. 2. Small bilateral effusions with significant dependent atelectasis bilaterally. Riley Bob MD Lower Extremity Ultrasound 02/27/17 0000 Signed Impressions: Service Date/Time: Monday, February 27, 2017 08:31 - CONCLUSION: Normal examination. Nick Farrell MD Abdomen X-Ray 02/24/17 0000 Signed Impressions: Service Date/Time: Friday, February 24, 2017 10:43 - CONCLUSION: 1. Nasogastric tube just across the GE junction. 2. Minimal nonspecific bowel gas dilatation. Artur Bob MD FACR Objective Remarks GENERAL: Patient is 66 yo obese male sedated SKIN: Warm and dry. HEAD: Normocephalic. EYES: No scleral icterus. No injection or drainage. NECK: Supple, trachea midline. No JVD or lymphadenopathy. Tracheostomy in situ no erythema or drainage noted. Sutures in situ CARDIOVASCULAR:Tachycardic without murmurs, gallops, or rubs. RESPIRATORY: On mechanical ventilation, orally intubated, Breath sounds equal bilaterally. Scattered rhonchi GASTROINTESTINAL: Abdomen soft, non-tender, nondistended. Normoactive bowel sounds MUSCULOSKELETAL: 2+ bilateral edema in B/L upper extremities Neuro: Sedated, arousable, moves all 4 extremities on lightening sedation, skin extremely agitated. Urinary Catheter: Yes [employer] insert reason: Measure Accurate Output Date of Removal: Mar 04, 2017 Line: Central Venous Catheter Side: Right A/P Assessment and Plan 1. Acute hypercapnic and hypoxemic respiratory failure. 2. COPD exacerbation. 3. Acute renal failure. 4. Hypernatremia 5. Obstructive sleep apnea and morbid obesity. 6. Ischemic dilated Cardiomyopathy. S/P AICD 03/2015 7. History of coronary artery disease. 8. Gastroesophageal reflux disease. 9. Hypertension. 10. Hyperlipidemia. 11 Pulm edema 12. Acute on chronic systolic and diastolic CHF 13. Pulmonary hypertension 14. Bacteremia Plan: Neuro: On Versed and Fentanyl infusion for sedation. Haldol added to medication regime secondary to agitation .Daily sedation vacation Monitor neuro status CV: Monitor HR and BP keep MAP>65mmHg. On Lopressor 12.5mg BID for rate control. On aspirin 325 milligrams p.o. daily and Plavix 75 mg p.o. daily - holding starting 03/22 in anticipation of tracheostomy. Prinivil 5mg daily 01/2017 Echo showed EF 40-45%, nl LV diastolic function, No RWMA Cardiology following-Dr. Cole Pulm: PRVC mode mechanical ventilation: rate 12 tidal volume 600 I time 1.1 second PEEP 10 FiO2 60% Continue with vent support. Tracheostomy in OR by Dr. Kirkland on 03/28 evening Bronchodilators every 4 hours, Solu-Medrol 40 mg IV BID. Pulm-Dr. Lashell Padron CXR: LLL consolidation/Atelectasis CTA chest 03/02 showed no PE, small pleural effusions Flolan inhaled nebulizer treatment stopped 03/21. Heparin GTT held on 03/25 in view of blood-tinged respiratory secretions 03/28 tracheostomy- Dr. Matthew, planned suture removal 04/04 : Monitor renal function Is and Os and avoid nephrotoxins. Electrolytes replacement per protocol. Lasix 40mg daily Decrease Free water 100 ml Q8 on 03/22, monitor sodium level GI: On Protonix 40 mg IV daily for GI prophylaxis. TF(Glucerna 1.5 @45ml/hr. S/P PEG tube placement 03/20 Senna, Colace for bowel regimen, 02/24 KUB abdomen: Minimal non-specific bowel gas dilatation GI is following for anemia and positive Hemoccult. ID: ID following- Dr. Young. Stopped antibiotics on 03/23 (Vancomycin, Levaquin) monitor for signs of infections ( Fever, WBC) . 03/16 C-diff PCR negative 03/14: BC: NGTD 03/14: Normal resp tiffany, urine cx: No growth 03/09 Repeat Bld cultures-staph Epi, coag negative staph- likely contaminant 03/09 Repeat sputum culture-staph aureus Heme: Monitor CBC. Heparin GTT held on 03/25. Heparin infusion restarted 03/31 . Repeat ultrasound bilateral upper extremities and lower extremities Endo: SSI with Accu-Chek q. 6-hour for glycemic control. GI prophylaxis with Protonix 40 mg BID and DVT prophylaxis with SCDs, and heparin infusion Doppler US UE: 03/14-Thrombus throughout the cephalic veins bilaterally. ? minimal thrombus within the left subclavian vein. Was off Heparin drip as patient had bloody secretions with suctioning ( resolved ) and positive Hemoccult. Heparin resumed (cleared by GI) and subsequently stopped on 03/25 due to blood tinged respiratory secretions, resumed 03/31 Doppler US LE No DVT on 02/27 Dispo: Discussed with Mrs. Doran and [employer], Palliative care is following. Mrs. Doran considering withdrawal/comfort measures at this time. Palliative care team contacted to discuss goals of care with her today. This patient remains critically ill with one or more organ systems which are or may become a threat to life. I have spent in excess of 35 minutes discontinuously in the care and management of this patient. This time is exclusive of procedures, and includes, but is not limited to, evaluation of the patient, review of the medical record, discussions with family, consultants, nursing staff, or respiratory therapy, and documentation in the medical record. Physician Rolanda Maria MD April 05, 2017 16:35
[2017-04-05 17:00] LABS: APTT (PATIENT) 46.9 SEC (24.3-30.1)
[2017-04-05] MEDS: ATORVASTATIN 40 MG TAB PO SCH (21:05)
[2017-04-06] VITALS (15 sets, daily range): BP systolic 92–139; BP diastolic 51–64; PULSE 69–112; RESP 16–20; TEMP 97.2–98.8; O2SAT 93–98
[2017-04-06] MEDS: PROPOFOL 1000 MG/100 ML INJ 100 ML IV SCH ×4 (00:22→22:39)
[2017-04-06] MEDS: MIDAZOLAM 100 MG/ML INJ 100 ML IV SCH (00:44)
[2017-04-06 01:28] LABS: APTT (PATIENT) 63.4 SEC (24.3-30.1)
[2017-04-06] MEDS: CHLORHEXIDINE GLUCONATE 2 % 1 PACK (2 CLOTHS) TOP SCH (04:00)
[2017-04-06] MEDS: INSULIN NovoLIN REGULAR SUPPLEMENTAL SCALE SQ SCH ×4 (05:00→23:00)
[2017-04-06 05:05] LABS: BLOOD GAS BASE EXCESS 5.1 mmol/L (-2-2); BLOOD GAS CARBOXYHEMOGLOBIN 1.5 % (0-4); BLOOD GAS HCO3 28 mmol/L (22-26); BLOOD GAS O2 HGB SATURATION 90 % (90-100); BLOOD GAS PCO2 35 mmHg (38-42); BLOOD GAS PO2 65 mmHg (61-120); BLOOD GAS TOTAL HGB 9.5 G/DL (12.0-16.0); CRITICAL VALUE YES; OXYGEN DEVICE VENTILATOR; TEMP CORR TO 98.6
[2017-04-06 05:06] LABS: DRAW SITE RT RADIAL; FIO2 45 %; NUMBER OF ARTERIAL PUNCTURES 1; STAT NO; ULNAR PULSE PRESENT; VENT SETTINGS PRVC/AC
[2017-04-06] MEDS: FREE WATER G-TUBE SCH (05:37)
[2017-04-06 07:10] LABS: APTT (PATIENT) 56.2 SEC (24.3-30.1)
[2017-04-06] MEDS: LISINOPRIL 5 MG TAB PO SCH (08:32)
[2017-04-06] MEDS: HALOPERIDOL LACTATE ORAL CONC 10 MG/5 ML CUP PO SCH (08:33)
[2017-04-06] MEDS: FUROSEMIDE 40 MG/4 ML VIAL IV PUSH SCH (08:33)
[2017-04-06] MEDS: fentaNYL DRIP 250 ML IV SCH ×2 (08:33→20:58)
[2017-04-06] MEDS: PANTOPRAZOLE SODIUM 40 MG VIAL IV SCH (08:33)
[2017-04-06] MEDS: predniSONE 20 MG TAB PO SCH (08:33)
[2017-04-06] MEDS: CHLORHEXIDINE 0.12% (ORAL KIT) 15 ML CUP MT SCH ×2 (08:34→20:51)
[2017-04-06] MEDS: METOPROLOL TARTRATE 25 MG TAB PO SCH ×2 (08:34→20:52)
[2017-04-06] MEDS: SODIUM CHLORIDE 0.9% FLUSH 10 ML FLUSH IVF PRN (08:34)
--- NOTE | 2017-04-06 13:48 | HHI.CCPN ---
Subjective Remarks/Hospital Course The patient is a 66-year-old male with past medical history of COPD, cardiomyopathy, hypertension, gastroesophageal reflux disease, hyperlipidemia and coronary artery disease. The patient presented to [facility] ED with a 2-week history of progressive worsening shortness of breath. On arrival to the ED he was initially placed on a non-rebreather mask and ABG was performed which showed acute hypercapnic respiratory failure with a pH of 7.14, CO2 121, pAO2 141, bicarb 40, sats 93%. His laboratory data significant for hyperkalemia with potassium level 6.0 and acute renal failure with a BUN of 43 and creatinine 2.07 respectively. The chest x-ray showed cardiomegaly and findings of vascular congestion without overt failure. In the ED the patient was intubated with etomidate and rocuronium and placed on full mechanical ventilation. In addition, he is scheduled to receive 10 units IV regular insulin, 1 amp of D50 and calcium gluconate for hyperkalemia. He received cefepime, azithromycin, Solu-Medrol 125 milligrams IV push and bronchodilator treatment. When seen the patient is on Diprivan infusion for sedation and full mechanical ventilation. Per the patient is not on any oxygen at home and he occasionally smokes cigarettes. 02/24 Patient is intubated and sedated with Diprivan and Fentanyl. Switched to PC/ AC with RR 12, IP:24, IT:1.06, PEEP: 8 and FIO2 100%. CXR this morning showed interval development of bilateral perihilar and lower lung zone airspace opacity he was given Lasix 60mg total overnight. 02/25 Patient remains sedated and intubated with Diprivan and Fentanyl. Afebrile.On PC/AC with RR 12, IP:22, IT:1.10, PEEP:10, FIO2 70%. Afebrile. Renal function worse today with Cr: 1.90 from 1.72 UO: 1150ml in 24 hrs 02/26 No acute events overnight. Sedated with Fentanyl and Diprivan and intubated. Afebrile. His O2 requirements is less now on PC/AC with IP:22, IT: 1.1 with PEEP: 10 and FIO2 55%. Renal function improving with Cr: 1.42 today from 1.90. Tolerating tube feeds. 02/27 Patient remains sedated with Diprivan and Fentanyl infusion and intubated. Afebrile. 02/28: Remains sedated, orally intubated on mechanical ventilation. Being diuresed with Bumex. Tolerating tube feeds. 03/01: Remains sedated, orally intubated on mechanical ventilation. Being diabetes. Remains on PEEP of 10 and FiO2 60% 03/02 Patient remains sedated with Diprivan and Fentanyl and intubated. On PC/AC with PEEP: 10 and FIO2 80% overnight and sats 93-94%. Afebrile. 03/03: The patient remains on high respiratory requirements PEEP of 10, and FiO2 70%. 03/04: Tmax 99.9. Overnight the patient was noted to have desaturations the patient received a bolus of midazolam and fentanyl for ventilator dyssynchrony. The patient was redosed with Diamox with approximately 2.5 L diuresis in the last 12 hours. The patient continues on an FiO2 of 70% with PEEP of 10 to maintain an O2 sat of 90%. 03/05: Afebrile. Patient's FiO2 remains at 60% to maintain O2sat ranging in 92% . Future plans for tracheostomy discussed with when ventilator requirements are decreased. Patient currently is on a PEEP of 10. Patient receiving multiple doses of diuretics chest x-ray still showing increased vascular congestion. Cardiology following metalazone added to medication regimen per cardiology for diuresis. 03/06: Patient's O2 requirements were increased overnight to FiO2 of 90%. The patient's FiO2 has been decreased now currently to 70% O2 sat is 90% ABG is pending. The patient's diuresis effective, 1 kg weight loss in 24 hours. 03/07: The patient continues to have effective diuresis. The patient's O2 requirements currently FiO2 is 70% to maintain a sat of 90-91%. Discussion with Ms. London yesterday, she would like to discuss with palliative team goals of care. Palliative care consult initiated. 03/08: The patient was less responsive to diuretics today, positive weight balance last 24 hours. The patient was placed on a Lasix infusion, noted occasional PVCs on telemetry. Patient potassium repletion ongoing, schedule potassium PO intake increased to 50 mEq twice a day. Free water flushes placed on hold, was sodium level 145 will continue to monitor. Chest x-ray shows slight improvement. Continued management of ventilator settings ARDS protocol, maintaining PaO2 60 or greater and adjusting vent settings based on PaO2. Sedation vacation attempted today by GEODETIC SURVEY DIRECTOR, [employer] 11T. Noted WBC elevation today ID consulted. 03/09: Today the patient was noted to have increasing FiO2 requirements with a PaO2 of 61. FiO2 was increased to 100%, PEEP was gradually increased to 12, then 14. The patient subsequently became hypotensive, likely due to increasing PEEP, but chest x-ray also obtained to rule out pneumothorax which was clear. The patient subsequently was laced on phenylephrine low-dose 20 mcgs which was eventually weaned off. The patient was placed on PEEP at 7 and FiO2 of 100%, sedation was weaned to lower dose. Palliative care also discussed with goals of care and the patient was made DNR. 03/10 noted creatinine elevation last night, Lasix discontinued. Dobutamine initiated per cardiology this morning. The patient continues to have high requirements on a PEEP of 8 and FiO2 of 100% his PaO2 49.2. PEEP has been increased plan to initiate Flolan. 03/11: Tmax 100.5. FRANK resolved with dobutamine infusion, heart rate 110. Microbiology report bacteremia gram-positive cocci and sputum. Patient currently on Diflucan. Will begin Linezolid in the setting of recent FRANK and oliguria, and await further recommendations from infectious disease makeup sales consultant. Respiratory status deteriorating. The patient was placed on Flolan last night PaO2 67. Patient remains on a PEEP of 10, unable to advance secondary to hypotension. 03/12 Patient remains sedated with Diprivan, Fentanyl and intubated. On Dobutamine 2.5 mics and Flolan. Remains On PC/AC with RR 12, IP:22, IT:1.20, PEEP;10 and FIo2 90%. Afebrile. 03/13 Patient is sedated with Diprivan and Fentanyl and intubated. On PC/AC with PEEP:12, FIO2 80%. Tmax 101.7 Remains on Dobutamine and Flolan. 03/14 Patient remains sedated and intubated. On PC/AC with PEEP:12 and FIO2 100% . T: 101.5 last night. On Flolan off Dobutamine. 03/15 No acute events overnight. Sedated with Diprivan and Fentanyl. On PC/AC with PEEP: 12, FIO2 down to 70%. Tmax 101.6. On Flolan nebs. 03/16 Patient remains sedated and intubated On PC/AC with decrease in FIO2 requirements down to 65% FIO2 with PEEP: 12. Tmax 101.4. On Heparin drip. 03/17 Patient remains sedated and intubated. T: 99.7, heparin drip turned off as patient had bloody secretions with suctioning and Hemoccult was positive. 03/18 No acute events overnight. Remains sedated and intubated. Tmax 102.8. Off heparin drip patient has minimal bloody secretions. 03/19 Patient remains sedated with Diprivan and Fentanyl intubated. Afebrile. 03/20 No acute events overnight. Sedated and intubated. Tmax : 100.8. NPO for EGD and PEG tube placement today. 03/21 remains sedated, orally intubated on mechanical ventilation. Flolan inhaled stopped today. Switched to PRVC mode mechanical ventilation from PC/AC. 03/22:Remains sedated, orally intubated on mechanical ventilation. Deep decreased to +10, FiO2 55%. 03/23: Arouses on lightening sedation, moving all 4 extremities. Orally intubated on mechanical ventilation. On PEEP of +10, FiO2 50% 03/24: Sedated, arousable, orally intubated on mechanical ventilation. PEEP +10 , FiO2 60% today. 03/25: Remains sedated, orally intubated on mechanical ventilation. PEEP of +10 , FiO2 50%. Minimal blood-tinged respiratory secretions noted. Heparin drip stopped 03/25 03/26: Remains sedated, orally intubated on mechanical ventilation. PEEP remains at +10, FiO2 60%. Discussed with Dr. Bal, doubt patient can tolerate bronchoscopies hence he is planning to do tracheostomy in the OR. 03/27: Sedated, arousable, remains orally intubated on mechanical ventilation. Awaiting tracheostomy in the OR which is scheduled for tomorrow. 03/28: Sedated, arousable, remains orally intubated on mechanical ventilation at the time of my evaluation in the morning. Subsequently taken for tracheostomy 03/29: Afebrile. Patient remains sedated and intubated. He is status post tracheostomy. PEEP remains at 10,FIO2 60%. 03/30 Sedated, tracheostomy postop day 2, patient continues to have high ventilatory requirements PEEP of 10, and able to perform CPAP trials. Previously patient was noted to be bleeding from endotracheal to prior to tracheostomy. Will initiate heparin subcutaneous DVT prophylaxis, and closely monitor before beginning full anticoagulation of heparin. 03/31: Afebrile. Will begin heparin infusion today, and closely monitor for signs of bleeding. The patient was on subcutaneous heparin yesterday without any evidence of bleeding. The patient remains on a PEEP of 10 with high O2 requirements, continue attempts at weaning. 04/01: The patient was started on full anticoagulation last evening, no evidence of bleeding, remains therapeutic. FiO2 was weaned to 50%. CPAP trials are underway. Chest x-ray slightly improved today. 04/02: The patient tolerated CPAP trials for approximately 4 hours yesterday. Today CPAP trials attempted, unsuccessful. The patient continues on heparin infusion and Versed and fentanyl to maintain ventilator synchrony. 04/03: Afebrile. The patient fell CPAP trials today. He continues on Versed and fentanyl infusions for ventilator synchrony. Heparin infusion continued no active signs of bleeding. 04/04: The patient continues to fail CPAP trials .The patient gets extremely anxious and agitated when lessening the sedation. Haldol added to the medication regimen. Patient continues on heparin infusion, with no active signs of bleeding. 04/05: The patient continues to be agitated today unable to successfully apply CPAP trials . Extensive discussion with patient's , at this point she is considering withdrawal of care after talking with other family members. Positive care contacted to discuss goals of care and comfort measures process. 04/06 Patient i snow sedated with versed, Diprivan and Fentanyl. On Heparin drip. Afebrile. Objective Vital Signs Date Time Temp Pulse Resp B/P Pulse Ox O2 Delivery O2 Flow Rate FiO2 04/06/17 11:14 95 40 04/06/17 06:00 86 04/06/17 04:00 98.4 18 92/51 Intake and Output 04/05/17 04/05/17 04/06/17 08:00 16:00 00:00 Intake Total 871 ml 1071 ml 988 ml Output Total 300.0 ml 1600 ml 350 ml Balance 571.0 ml -529 ml 638 ml Result Diagram: 04/05/17 0701 04/05/17 0415 Other Results Laboratory Tests Test 04/05/17 04/06/17 04/06/17 04/06/17 16:25 00:50 04:45 06:31 Activated Partial 46.9 SEC 63.4 SEC 56.2 SEC Thromboplast Time Blood Gas Puncture Site RT RADIAL Blood Gas Patient Temperature 98.6 Blood Gas HCO3 28 mmol/L Blood Gas Base Excess 5.1 mmol/L Blood Gas Oxygen Saturation 90 % Arterial Blood pH 7.51 Arterial Blood Partial 35 mmHg Pressure CO2 Arterial Blood Partial 65 mmHg Pressure O2 Arterial Blood Oxygen Content 12.0 Vol % Arterial Blood 1.5 % Carboxyhemoglobin Arterial Blood Methemoglobin 1.0 % Blood Gas Hemoglobin 9.5 G/DL Oxygen Delivery Device VENTILATOR Blood Gas Ventilator Setting PRVC/AC Blood Gas Inspired Oxygen 45 % Imaging Last Impressions Chest X-Ray 04/05/17 06 Signed Impressions: Service Date/Time: March 03:52 - CONCLUSION: Right lower lobe infiltrate more localized than on the prior study. Garrick Hinton Jr., MD Upper Extremity Ultrasound 04/04/17 06 Signed Impressions: Service Date/Time: Tuesday, April 04, 2017 09:32 - CONCLUSION: Occlusive thrombus in both cephalic veins. The veins are patent. I cannot see more medial than the axillary veins. Artur Bob MD FACR Lower Extremity Ultrasound 04/04/17 06 Signed Impressions: Service Date/Time: Tuesday, April 04, 2017 08:54 - CONCLUSION: No DVT in either lower extremity. Fernando Mack MD CT Angiography 03/02/17 1206 Signed Impressions: Service Date/Time: Thursday, March 02, 2017 13:46 - CONCLUSION: 1. No pulmonary embolus identified. 2. Small bilateral effusions with significant dependent atelectasis bilaterally. Riley Bob MD Abdomen X-Ray 02/24/17 0000 Signed Impressions: Service Date/Time: Friday, February 24, 2017 10:43 - CONCLUSION: 1. Nasogastric tube just across the GE junction. 2. Minimal nonspecific bowel gas dilatation. Artur Bob MD FACR Objective Remarks GENERAL: Patient is 66 yo obese male sedated SKIN: Warm and dry. HEAD: Normocephalic. EYES: No scleral icterus. No injection or drainage. NECK: Supple, trachea midline. No JVD or lymphadenopathy. Tracheostomy in situ no erythema or drainage noted. Sutures in situ CARDIOVASCULAR:Tachycardic without murmurs, gallops, or rubs. RESPIRATORY: On mechanical ventilation, orally intubated, Breath sounds equal bilaterally. Scattered rhonchi GASTROINTESTINAL: Abdomen soft, non-tender, nondistended. Normoactive bowel sounds MUSCULOSKELETAL: 2+ bilateral edema in B/L upper extremities Neuro: Sedated, arousable, moves all 4 extremities on lightening sedation, skin extremely agitated. Date of Removal: Mar 04, 2017 Line: Central Venous Catheter Side: Right A/P Assessment and Plan 1. Acute hypercapnic and hypoxemic respiratory failure. 2. COPD exacerbation. 3. Acute renal failure. 4. Hypernatremia 5. Obstructive sleep apnea and morbid obesity. 6. Ischemic dilated Cardiomyopathy. S/P AICD 03/2015 7. History of coronary artery disease. 8. Gastroesophageal reflux disease. 9. Hypertension. 10. Hyperlipidemia. 11 Pulm edema 12. Acute on chronic systolic and diastolic CHF 13. Pulmonary hypertension 14. Bacteremia Plan: Neuro: On Versed, Diprivan and Fentanyl infusion for sedation .Daily sedation vacation Monitor neuro status CV: Monitor HR and BP keep MAP>65mmHg. On Lopressor 12.5mg BID for rate control. On aspirin 325 milligrams p.o. daily and Plavix 75 mg p.o. daily. Prinivil 5mg daily 01/2017 Echo showed EF 40-45%, nl LV diastolic function, No RWMA Cardiology following-Dr. Cole Pulm: PRVC mode mechanical ventilation: rate 16 tidal volume 600 I time 1.2 second, PEEP 8 FiO2 45% Continue with vent support. Trached in OR by Dr. Kirkland on 03/28 Bronchodilators every 4 hours, Prednisone 20mg daily. Pulm-Dr. Girish Wong toilet, [facility] care, SBT as kristie. CTA chest 03/02 showed no PE, small pleural effusions : Monitor renal function Is and Os and avoid nephrotoxins. Electrolytes replacement per protocol. Lasix 40mg daily d/c free water GI: On Protonix 40 mg IV daily for GI prophylaxis. TF(Glucerna 1.5 @45ml/hr. S/P PEG tube placement 03/20 Senna, Colace for bowel regimen, 02/24 KUB abdomen: Minimal non-specific bowel gas dilatation GI is following for anemia and positive Hemoccult. ID: ID following- Dr. Young. Stopped antibiotics on 03/23 (Vancomycin, Levaquin) monitor for signs of infections ( Fever, WBC) . 03/16 C-diff PCR negative 03/14: BC: NGTD 03/14: Normal resp tiffany, urine cx: No growth 03/09 Repeat Bld cultures-staph Epi, coag negative staph- likely contaminant 03/09 Repeat sputum culture-staph aureus Heme: Monitor CBC. On Heparin drip 04/04 Doppler US UE: Occlusive thrombus in both cephalic veins Endo: SSI with Accu-Chek q. 6-hour for glycemic control. GI prophylaxis with Protonix 40 mg BID and DVT prophylaxis with SCDs, and heparin infusion Doppler US UE: 03/14-Thrombus throughout the cephalic veins bilaterally. ? minimal thrombus within the left subclavian vein. 04/04 Doppler US UE : occlusive thrombus in both cephalic veins Dispo: No code DNR Palliative is following- Patient's is considering transitioning to comfort care. Level 3 Georgia Ocampo MD April 06, 2017 13:48
--- NOTE | 2017-04-06 14:11 | HHI.HCPN ---
Reason for visit a. To assist with evaluation and management of symptoms including: dyspnea, pain b. To assist medical decision maker(s) with: better understanding of current medical conditions; weighing benefits/burdens of medical treatment options; making medical treatment decisions. . (Sapphire Chen) Subjective/Interval History Palliative care to follow-up for further clarifications of goals of care and emotional support. Patient remains on mechanical ventilation via tracheostomy. Currently on 40% FiO2 and PEEP of 8. Continue not tolerating CPAP trials. Periods of agitation/restlessness requiring Versed drip and addition of Haldol. No new laboratory or imaging. Patient afebrile, stable hemodynamically. Patient seen in ICU. Eyes open but not tracking or following any commands. Not attempting to communicate during my visit. Met with patient's , Dr. Wiley and palliative care. Reviewed events leading to this hospitalization, clinical course and current medical management. Reviewed likely illness trajectory with continuation of ventilator support versus comfort-directed care/withdrawal life support and allow natural . reports that she has been in communication with patient's brother who asked her yesterday 'not to allow patient to suffer any longer". also reports that there is 6 children who are in [place] her also in agreement with transitioning to comfort care/withdrawal of life support and to allow a natural given patient's very poor prognosis for a meaningful recovery, even if he survives this hospitalization. Extensive active listening and ongoing emotional support provided to . shared life memories, along with passages from the Bible for spiritual support. in agreement of the activation of AICD at this time, exhibits signed and witnessed. Anticipatory guidance provided. would like for withdrawal process to happen Sunday, at anytime during the day. She does NOT wish to be present, she is requesting to be notified only after . . Family/friend interactions See interval note. . (Sapphire Chen) Advance Directives Living Will: Never completed Health Care Surrogate: Never completed Durable Power of Travel Accommodation Inspector: Never completed (Sapphire Chen) Advance Directive Specifics Health Care Surrogate(s): Brooke Doran - [phone] (home), or [phone] (cellvoicemail not set up) Significant change in goals: No code. DNR/DNI. Withdrawal life support on 04/07/17. . (Sapphire Chen) Objective Vital Signs Date Time Temp Pulse Resp B/P Pulse Ox O2 Delivery O2 Flow Rate FiO2 04/06/17 11:14 95 40 04/06/17 08:04 98 45 04/06/17 08:00 72 04/06/17 06:00 86 04/06/17 04:20 93 45 04/06/17 04:00 74 04/06/17 04:00 98.4 74 18 92/51 94 04/06/17 04:00 45 04/06/17 02:00 83 04/06/17 00:19 97 45 04/06/17 00:00 98.8 112 20 139/64 98 04/06/17 00:00 45 04/06/17 00:00 112 04/05/17 22:08 99 45 04/05/17 22:00 72 04/05/17 20:00 121 04/05/17 20:00 98.3 121 17 109/62 96 04/05/17 20:00 45 04/05/17 18:00 90 04/05/17 17:59 97 45 04/05/17 16:00 108 04/05/17 16:00 45 04/05/17 16:00 98.6 80 21 135/71 98 04/05/17 14:00 69 Intake & Output 04/06/17 04/06/17 07:00 19:00 Intake Total 1918 ml Output Total 650 ml Balance 1268 ml IV Total 1072 ml Tube Feeding 646 ml Other 200 ml Output Urine Total 650 ml Physical Exam CONSTITUTIONAL/GENERAL: This is an adequately nourished patient, eyes open but not tracking. Not following any commands. Not attempting to communicate. TUBES/LINES/DRAINS: PIV's, PEG tube, tracheostomy, cabrera catheter, bilateral soft wrist restraints. SKIN: No jaundice, rashes, or lesions. Scatter ecchymoses on upper extremities. Skin temperature appropriate. Diaphoretic. HEAD: Atraumatic. Normocephalic. EYES: Pupils equal and round and reactive. No scleral icterus. No injection or drainage. ENT: Tracheostomy in place. NECK: Trachea midline. Supple, CARDIOVASCULAR: No murmurs, gallops, or rubs. Peripheral pulses symmetric. Edema to upper extremities left hand worsened right hand. RESPIRATORY/CHEST: Symmetric. Mildly coarse breath sounds bilaterally. Symmetric air movement. Remains on vent support via trach. GASTROINTESTINAL: Abdomen soft, round. Positive bowel sounds. GENITOURINARY: Without palpable bladder distension. catheter in place. MUSCULOSKELETAL: Edema in upper extremities. Extremities without clubbing, cyanosis. NEUROLOGICAL: Eyes open but not tracking. Not following commands or attempting to communicate during my visit. Restless during my visit. PSYCHIATRIC: Restless. (Sapphire Chen) Diagnostic Tests Laboratory Laboratory Tests Test 04/04/17 04/04/17 04/05/17 04/05/17 03:37 21:38 04:15 07:01 Activated Partial 44.2 SEC 28.7 SEC Thromboplast Time (24.3-30.1) (24.3-30.1) Sodium Level 144 MEQ/L 139 MEQ/L (136-145) (136-145) Potassium Level 3.2 MEQ/L 5.3 MEQ/L 4.7 MEQ/L (3.5-5.1) (3.5-5.1) (3.5-5.1) Chloride Level 102 MEQ/L 103 MEQ/L (98-107) (98-107) Carbon Dioxide Level 33.1 MEQ/L 28.2 MEQ/L (21.0-32.0) (21.0-32.0) Anion Gap 9 MEQ/L (5-15) 8 MEQ/L (5-15) Blood Urea Nitrogen 20 MG/DL (7-18) 18 MG/DL (7-18) Creatinine 0.41 MG/DL 0.38 MG/DL (0.60-1.30) (0.60-1.30) Estimat Glomerular Filtration 208 ML/MIN 227 ML/MIN Rate (>89) (>89) Random Glucose 96 MG/DL 74 MG/DL (74-106) (74-106) Calcium Level 9.1 MG/DL 8.9 MG/DL (8.5-10.1) (8.5-10.1) Phosphorus Level 2.8 MG/DL 3.1 MG/DL (2.5-4.9) (2.5-4.9) Magnesium Level 2.4 MG/DL 2.5 MG/DL 2.4 MG/DL (1.5-2.5) (1.5-2.5) (1.5-2.5) White Blood Count 9.8 TH/MM3 (4.0-11.0) Red Blood Count 3.46 MIL/MM3 (4.50-5.90) Hemoglobin 10.0 GM/DL (13.0-17.0) Hematocrit 31.5 % (39.0-51.0) Mean Corpuscular Volume 91.1 FL (80.0-100.0) Mean Corpuscular Hemoglobin 29.0 PG (27.0-34.0) Mean Corpuscular Hemoglobin 31.9 % Concent (32.0-36.0) Red Cell Distribution Width 18.2 % (11.6-17.2) Platelet Count 169 TH/MM3 (150-450) Mean Platelet Volume 8.6 FL (7.0-11.0) Test 04/05/17 04/06/17 04/06/17 04/06/17 16:25 00:50 04:45 06:31 Activated Partial 46.9 SEC 63.4 SEC 56.2 SEC Thromboplast Time (24.3-30.1) (24.3-30.1) (24.3-30.1) Blood Gas Puncture Site RT RADIAL Blood Gas Patient Temperature 98.6 Blood Gas HCO3 28 mmol/L (22-26) Blood Gas Base Excess 5.1 mmol/L (-2-2) Blood Gas Oxygen Saturation 90 % (90-100) Arterial Blood pH 7.51 (7.380-7.420) Arterial Blood Partial 35 mmHg (38-42) Pressure CO2 Arterial Blood Partial 65 mmHg Pressure O2 (61-120) Arterial Blood Oxygen Content 12.0 Vol % (12.0-20.0) Arterial Blood 1.5 % (0-4) Carboxyhemoglobin Arterial Blood Methemoglobin 1.0 % (0-2) Blood Gas Hemoglobin 9.5 G/DL (12.0-16.0) Oxygen Delivery Device VENTILATOR Blood Gas Ventilator Setting PRVC/AC Blood Gas Inspired Oxygen 45 % (Sapphire Chen) Result Diagram: 04/05/17 0701 04/05/17 0415 Imaging To help prompt me to consider important information that might be impacting today's encounter and assessment, information from prior notes written by myself or my colleagues may have been "brought forward" into today's note. My signature on this note, however, is an attestation that I personally performed the exam, history, and/or decision-making noted today, and, unless otherwise indicated, the interactions with patient, family, and staff as well as the review of records all occurred today. I also attest that the listed assessment and stated plan reflect my best clinical judgment today based on the combination of historical information, prior notes, and today's exam/ interactions. When time spent is documented, it refers only to time spent today by the signer, or if indicated, combined time spent today by collaborating physician/nurse practitioner. Last Impressions Chest X-Ray 04/05/17 0600 Signed Impressions: Service Date/Time: March 03:52 - CONCLUSION: Right lower lobe infiltrate more localized than on the prior study. Garrick Hinton Jr., MD Upper Extremity Ultrasound 04/04/17 0600 Signed Impressions: Service Date/Time: Tuesday, April 04, 2017 09:32 - CONCLUSION: Occlusive thrombus in both cephalic veins. The veins are patent. I cannot see more medial than the axillary veins. Artur Bob MD FACR Lower Extremity Ultrasound 04/04/17 0600 Signed Impressions: Service Date/Time: Tuesday, April 04, 2017 08:54 - CONCLUSION: No DVT in either lower extremity. Fernando Mack MD CT Angiography 03/02/17 1206 Signed Impressions: Service Date/Time: Thursday, March 02, 2017 13:46 - CONCLUSION: 1. No pulmonary embolus identified. 2. Small bilateral effusions with significant dependent atelectasis bilaterally. Riley Bob MD Abdomen X-Ray 02/24/17 0000 Signed Impressions: Service Date/Time: Friday, February 24, 2017 10:43 - CONCLUSION: 1. Nasogastric tube just across the GE junction. 2. Minimal nonspecific bowel gas dilatation. Artur Bob MD FACR Procedures * Central line placement * PEG tube placement * Tracheostomy 03/28/17 . (Sapphire Chen) Assessment and Plan Disease Oriented Problem List: (1) Acute respiratory failure (2) COPD with acute exacerbation Comment: Currently intubated with FiO2 of 50%. Not tolerating CPAP trials. (3) Ischemic dilated cardiomyopathy Comment: EF 20% (4) Atrial flutter Comment: Has PPM with AICD (5) COPD (chronic obstructive pulmonary disease) Symptom Scale: (1) Pain 0-10 Scale: Unable to quantify Comment: History of arthritis with shoulder ORIF. Other sources of pain include prolonged bedbound status; cabrera catheter; venous access lines; tracheostomy . (2) Dyspnea 0-10 Scale: Unable to quantify Comment: COPD exacerbation, now vent dependent . (3) Restlessness and agitation 0-10 Scale: Unable to quantify Comment: Haldol daily. 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 Important Contacts Brooke Doran - [phone] (home), or [phone] (cellvoicemail not set up) . 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 If he does survive the hospitalization, there is a high probability of recurrent hospitalizations and fairly dependent functional status between. Hopefully, he will have a greater chance of weaning now that his has trach in place. . Code Status: No Code Plan * CODE STATUS: No code. DNR. * HEALTHCARE DECISION-MAKER: Patient incapacitated at this time secondary to clinical condition. Unclear if he will regain capacity. Healthcare proxy is Brooke. * GOALS OF CARE: electing for withdrawal life support/allow natural on 04/07/17 during daytime. She does NOT wish to be present or notified of withdrawal. Only notify of patient's . Met with patient' s , Dr. Wiley and palliative care. Reviewed events leading to this hospitalization, clinical course and current medical management. Reviewed likely illness trajectory with continuation of ventilator support versus comfort -directed care/withdrawal life support and allow natural . reports that she has been in communication with patient's brother who asked her yesterday 'not to allow patient to suffer any longer". also reports that there is 6 children who are in [place] her also in agreement with transitioning to comfort care/withdrawal of life support and to allow a natural given patient's very poor prognosis for a meaningful recovery, even if he survives this hospitalization. Extensive active listening and ongoing emotional support provided to . shared life memories, along with passages from the Bible for spiritual support. in agreement of the activation of AICD at this time, exhibits signed and witnessed. Anticipatory guidance provided. would like for withdrawal process to happen Sunday, at anytime during the day. She does NOT wish to be present, she is requesting to be notified only after . * SYMPTOMS: = Shortness of breath, currently vent dependent at this time. FiO2 40%. Continue failing CPAP trials. Hx of severe COPD and CAD with cardiomyopathy status post PPM/AICD with an EF of 20%. ==Debility, secondary to prolonged hospitalization. Likely to continue to worsen. == Pain, secondary to prolonged bedrest, trach. Currently on fentanyl drip. == Agitation/ restlessness: Haldol was added. * Case discussed with bedside RN. Order entered to arrange for deactivation of AICD. * Exhibits B and C have been sign. Pending attending's signature. * Anticipatory guidance provided. * Ongoing emotional support and active listening provided. * Palliative care contact information has been provided to patient's . . (Sapphire Chen) Time Spent Time Periods: Meeting with patient's for goals of care conversation from 12:20 to 13:15. Total Floor Time (mins): 70 (Total time to include review and summarization of medical records, physical exam, extensive goals of care conversation with patient's in regards to continuation of current medical management versus comfort-directed care/withdrawal of life support, anticipatory guidance, and case discussion with Dr. Ocampo and bedside RN.) Face to Face Time (mins): 55 >50% Counseling/Coord of Care: Yes (Sapphire Chen) Attestation To help prompt me to consider important information that might be impacting today's encounter and assessment, information from prior notes written by myself or my colleagues may have been "brought forward" into today's note. My signature on this note, however, is an attestation that I personally performed the exam, history, and/or decision-making noted today, and, unless otherwise indicated, the interactions with patient, family, and staff as well as the review of records all occurred today. I also attest that the listed assessment and stated plan reflect my best clinical judgment today based on the combination of historical information, prior notes, and today's exam/ interactions. When time spent is documented, it refers only to time spent today by the signer, or if indicated, combined time spent today by collaborating physician/nurse practitioner. (Sapphire Chen) Collaborating MD Comments Chart reviewed, case discussed with ANNE Egan. Patient examined by me. Above MAINTENANCE SUPERVISOR ELECTRICAL note reviewed and I concur. Attended meeting with spouse and Ms Chen. Reviewed the patient's hospital course, inability to wean him from vent in spite of aggressive care, and options going forward. As per above note, she agrees going forward that patient 's goals/wishes would best be honored at this point by foregoing further aggressive care; withdrawing life support, and transitioning to "comfort measures only." At time of my visit: Afebrile. Hemodynamically stable. Sedated. Stirs , but does not awaken to voice/exam Trach to vent. Lungs with coarse breath sounds but no wheezing. Regular rhythym/rate without murmur. Abdomen benign Upper extremity edema. PLAN: * Will withdraw life support on 04/07/17 * I have signed "consulting physician's" "Exhibit." * Patient only wants to be notified once patient has . * Spouse will probably benefit from bereavement support. TIME: Combined physician / MAINTENANCE SUPERVISOR ELECTRICAL time on floor over 70 minutes with > 50% spent on counseling/coordination of care. . Attestation To help prompt me to consider important information that might be impacting today's encounter and assessment, information from prior notes written by myself or my colleagues may have been "brought forward" into today's note. My signature on this note, however, is an attestation that I personally performed the exam, history, and/or decision-making noted today, and, unless otherwise indicated, the interactions with patient, family, and staff as well as the review of records all occurred today. I also attest that the listed assessment and stated plan reflect my best clinical judgment today based on the combination of historical information, prior notes, and today's exam/ interactions. When time spent is documented, it refers only to time spent today by the signer, or if indicated, combined time spent today by collaborating physician/nurse practitioner. . (Ishmael Wiley MD) Sapphire Chen April 06, 2017 14:11 Ishmael Wiley MD April 06, 2017 18:09
[2017-04-06 15:02] LABS: AUTOMATED NEUTROPHIL # 8.8 TH/MM3 (1.8-7.7); BASOPHIL # 0.1 TH/MM3 (0-0.2); BASOPHIL % 0.9 % (0.0-2.0); EOSINOPHIL # 0.1 TH/MM3 (0-0.4); EOSINOPHIL % 0.9 % (0.0-4.0); HEMATOCRIT 32.2 % (39.0-51.0); LYMPH % 4.4 % (9.0-44.0); LYMPHOCYTE # 0.4 TH/MM3 (1.0-4.8); MEAN CELL VOLUME 92.9 FL (80.0-100.0); MEAN CORPUSCULAR HEMOGLOBIN 29.4 PG (27.0-34.0); MEAN CORPUSCULAR HGB CONC 31.7 % (32.0-36.0); MONO % 4.8 % (0.0-8.0); PLATELET COUNT 155 TH/MM3 (150-450); RED BLOOD COUNT 3.47 MIL/MM3 (4.50-5.90); RED CELL DISTRIBUTION WIDTH 18.6 % (11.6-17.2); WHITE BLOOD COUNT 9.9 TH/MM3 (4.0-11.0)
[2017-04-06 15:04] LABS: HEMO FLAGS AUTO DIFF
[2017-04-06 15:24] LABS: BICARBONATE 29.6 MEQ/L (21.0-32.0); POTASSIUM 4.3 MEQ/L (3.5-5.1)
[2017-04-06 15:55] LABS: BANDS 9 % (0-6); EOSINOPHILS 3 % (0-4); METAMYELOCYTES 3 % (0-1); MYELOCYTES 1 % (0-0); NEUTROPHIL # MANUAL DIFF 8.8 TH/MM3 (1.8-7.7); POLYS (SEG NEUTROPHILS) 76 % (16-70); WBC DIFF SAMPLE 100
[2017-04-06 15:56] LABS: PLATELET ESTIMATE SMEAR NORMAL (NORMAL); PLATELET MORPHOLOGY NORMAL (NORMAL); SCAN/DIFF FINAL DIFF MANUAL
[2017-04-06] MEDS: HEPARIN-D5W INJ 250 ML IV SCH (18:17)
--- NOTE | 2017-04-06 18:17 | HHI.PR ---
Subjective Remarks Less Sedated and on the vent at 45 % FIO2, and PEEP 8 cm. Mild sedation. No fever. wants with drawel Objective Vital Signs Date Time Temp Pulse Resp B/P Pulse Ox O2 Delivery O2 Flow Rate FiO2 04/06/17 15:58 97 45 04/06/17 12:00 45 04/06/17 12:00 98.1 69 16 98/56 95 04/06/17 11:14 95 40 04/06/17 08:04 98 45 04/06/17 08:00 72 04/06/17 08:00 98.5 78 20 97/59 98 04/06/17 08:00 45 04/06/17 06:00 86 04/06/17 04:20 93 45 04/06/17 04:00 74 04/06/17 04:00 98.4 74 18 92/51 94 04/06/17 04:00 45 04/06/17 02:00 83 04/06/17 00:19 97 45 04/06/17 00:00 98.8 112 20 139/64 98 04/06/17 00:00 45 04/06/17 00:00 112 04/05/17 22:08 99 45 04/05/17 22:00 72 04/05/17 20:00 121 04/05/17 20:00 98.3 121 17 109/62 96 04/05/17 20:00 45 I/O 04/05/17 04/05/17 04/05/17 04/06/17 04/06/17 04/06/17 07:00 15:00 23:00 07:00 15:00 23:00 Intake Total 871 ml 1071 ml 988 ml 930 ml Output Total 300 ml 1600 ml 350 ml 300 ml Balance 571 ml -529 ml 638 ml 630 ml IV Total 418 ml 485 ml 598 ml 474 ml Tube Feeding 253 ml 486 ml 290 ml 356 ml Other 200 ml 100 ml 100 ml 100 ml Output Urine Total 300 ml 1600 ml 350 ml 300 ml Tube Feeding Residual Discard 0 ml Result Diagram: 04/06/17 1442 04/06/17 1442 Objective Remarks PHYSICAL EXAMINATION GENERAL: This moderately obese elderly man is, assisting the ventilator. HEENT: Head normocephalic. Pupils are reactive. Opens eyes. NECK: No bruits or thyroid enlargement. CHEST: Equal movements with diminished breath sounds at the bases wheezes and Occ basilar crackles. HEART: The heart sounds are regular, S1 and S2. No murmur. ABDOMEN: Soft, obese, without masses. No organomegaly. Bowel sounds are faint. EXTREMITIES: No Edema with decreased pulses . NEUROLOGIC: Reflexes 1 +. Moves all. SKIN: Warm and dry. Assessment and Plan Assessment and Plan IMPRESSION 1. Hypercapnic respiratory failure and hypoxemic respiratory failure. 2. COPD with chronic bronchitis and acute exacerbation. 3. Congestive heart failure. 4. Cardiomyopathy with ischemic heart disease. 5. Hypertension and hyperlipidemia. 6. Possible obstructive sleep apnea. 7. pulmonary HTN. Plan : 1. Wean O2 to keep sat > 92. 2. Wean sedation. 3. Palliative care to see. 4. Tube feeds at 60 CC. 5. Lasix 40 mg. 6. CPAP trial daily. 7. Prednisone 20 mg daily 8. PT evaluation Bri Stout MD April 06, 2017 18:17
[2017-04-06] MEDS: ATORVASTATIN 40 MG TAB PO SCH (20:51)
[2017-04-07] VITALS (20 sets, daily range): BP systolic 46–130; BP diastolic 29–77; PULSE 69–93; RESP 16–35; TEMP 98–98.7; O2SAT 60–95
[2017-04-07] MEDS: HEPARIN-D5W INJ 250 ML IV SCH (01:00)
[2017-04-07] MEDS: PROPOFOL 1000 MG/100 ML INJ 100 ML IV SCH ×3 (02:21→11:15)
[2017-04-07] MEDS: CHLORHEXIDINE GLUCONATE 2 % 1 PACK (2 CLOTHS) TOP SCH (04:00)
[2017-04-07] MEDS: INSULIN NovoLIN REGULAR SUPPLEMENTAL SCALE SQ SCH ×2 (05:00→11:00)
[2017-04-07 05:33] LABS: BASOPHIL # 0.1 TH/MM3 (0-0.2); BASOPHIL % 0.9 % (0.0-2.0); EOSINOPHIL # 0.2 TH/MM3 (0-0.4); EOSINOPHIL % 1.5 % (0.0-4.0); HEMATOCRIT 33.6 % (39.0-51.0); LYMPHOCYTE # 1.2 TH/MM3 (1.0-4.8); MEAN CELL VOLUME 90.5 FL (80.0-100.0); MEAN CORPUSCULAR HEMOGLOBIN 29.9 PG (27.0-34.0); MONO % 6.5 % (0.0-8.0); NEUT % 79.1 % (16.0-70.0); PLATELET COUNT 186 TH/MM3 (150-450); RED BLOOD COUNT 3.71 MIL/MM3 (4.50-5.90); RED CELL DISTRIBUTION WIDTH 18.5 % (11.6-17.2); WHITE BLOOD COUNT 10.1 TH/MM3 (4.0-11.0)
[2017-04-07 05:34] LABS: HEMO FLAGS AUTO DIFF
[2017-04-07 05:41] LABS: APTT (PATIENT) 39.4 SEC (24.3-30.1)
[2017-04-07 05:57] LABS: BICARBONATE 31.6 MEQ/L (21.0-32.0); POTASSIUM 3.9 MEQ/L (3.5-5.1)
[2017-04-07 07:23] LABS: BANDS 11 % (0-6); EOSINOPHILS 2 % (0-4); MYELOCYTES 11 % (0-0); NEUTROPHIL # MANUAL DIFF 8.3 TH/MM3 (1.8-7.7); POLYS (SEG NEUTROPHILS) 58 % (16-70); PROMYELOCYTES 2 % (0-0); WBC DIFF SAMPLE 100
[2017-04-07 07:24] LABS: SCAN/DIFF FINAL DIFF MANUAL
[2017-04-07] MEDS: HALOPERIDOL LACTATE ORAL CONC 10 MG/5 ML CUP PO SCH (08:10)
[2017-04-07] MEDS: predniSONE 20 MG TAB PO SCH (08:11)
[2017-04-07] MEDS: MIDAZOLAM 100 MG/ML INJ 100 ML IV SCH (08:11)
[2017-04-07] MEDS: fentaNYL DRIP 250 ML IV SCH (08:11)
[2017-04-07] MEDS: LISINOPRIL 5 MG TAB PO SCH (08:11)
[2017-04-07] MEDS: FUROSEMIDE 40 MG/4 ML VIAL IV PUSH SCH (08:11)
[2017-04-07] MEDS: PANTOPRAZOLE SODIUM 40 MG VIAL IV SCH (08:11)
[2017-04-07] MEDS: CHLORHEXIDINE 0.12% (ORAL KIT) 15 ML CUP MT SCH ×2 (08:12→20:09)
[2017-04-07] MEDS: METOPROLOL TARTRATE 25 MG TAB PO SCH (08:13)
--- NOTE | 2017-04-07 10:40 | HHI.CCPN ---
Subjective Remarks/Hospital Course The patient is a 66-year-old male with past medical history of COPD, cardiomyopathy, hypertension, gastroesophageal reflux disease, hyperlipidemia and coronary artery disease. The patient presented to [facility] ED with a 2-week history of progressive worsening shortness of breath. On arrival to the ED he was initially placed on a non-rebreather mask and ABG was performed which showed acute hypercapnic respiratory failure with a pH of 7.14, CO2 121, pAO2 141, bicarb 40, sats 93%. His laboratory data significant for hyperkalemia with potassium level 6.0 and acute renal failure with a BUN of 43 and creatinine 2.07 respectively. The chest x-ray showed cardiomegaly and findings of vascular congestion without overt failure. In the ED the patient was intubated with etomidate and rocuronium and placed on full mechanical ventilation. In addition, he is scheduled to receive 10 units IV regular insulin, 1 amp of D50 and calcium gluconate for hyperkalemia. He received cefepime, azithromycin, Solu-Medrol 125 milligrams IV push and bronchodilator treatment. When seen the patient is on Diprivan infusion for sedation and full mechanical ventilation. Per the patient is not on any oxygen at home and he occasionally smokes cigarettes. 02/24 Patient is intubated and sedated with Diprivan and Fentanyl. Switched to PC/ AC with RR 12, IP:24, IT:1.06, PEEP: 8 and FIO2 100%. CXR this morning showed interval development of bilateral perihilar and lower lung zone airspace opacity he was given Lasix 60mg total overnight. 02/25 Patient remains sedated and intubated with Diprivan and Fentanyl. Afebrile.On PC/AC with RR 12, IP:22, IT:1.10, PEEP:10, FIO2 70%. Afebrile. Renal function worse today with Cr: 1.90 from 1.72 UO: 1150ml in 24 hrs 02/26 No acute events overnight. Sedated with Fentanyl and Diprivan and intubated. Afebrile. His O2 requirements is less now on PC/AC with IP:22, IT: 1.1 with PEEP: 10 and FIO2 55%. Renal function improving with Cr: 1.42 today from 1.90. Tolerating tube feeds. 02/27 Patient remains sedated with Diprivan and Fentanyl infusion and intubated. Afebrile. 02/28: Remains sedated, orally intubated on mechanical ventilation. Being diuresed with Bumex. Tolerating tube feeds. 03/01: Remains sedated, orally intubated on mechanical ventilation. Being diabetes. Remains on PEEP of 10 and FiO2 60% 03/02 Patient remains sedated with Diprivan and Fentanyl and intubated. On PC/AC with PEEP: 10 and FIO2 80% overnight and sats 93-94%. Afebrile. 03/03: The patient remains on high respiratory requirements PEEP of 10, and FiO2 70%. 03/04: Tmax 99.9. Overnight the patient was noted to have desaturations the patient received a bolus of midazolam and fentanyl for ventilator dyssynchrony. The patient was redosed with Diamox with approximately 2.5 L diuresis in the last 12 hours. The patient continues on an FiO2 of 70% with PEEP of 10 to maintain an O2 sat of 90%. 03/05: Afebrile. Patient's FiO2 remains at 60% to maintain O2sat ranging in 92% . Future plans for tracheostomy discussed with when ventilator requirements are decreased. Patient currently is on a PEEP of 10. Patient receiving multiple doses of diuretics chest x-ray still showing increased vascular congestion. Cardiology following metalazone added to medication regimen per cardiology for diuresis. 03/06: Patient's O2 requirements were increased overnight to FiO2 of 90%. The patient's FiO2 has been decreased now currently to 70% O2 sat is 90% ABG is pending. The patient's diuresis effective, 1 kg weight loss in 24 hours. 03/07: The patient continues to have effective diuresis. The patient's O2 requirements currently FiO2 is 70% to maintain a sat of 90-91%. Discussion with Ms. London yesterday, she would like to discuss with palliative team goals of care. Palliative care consult initiated. 03/08: The patient was less responsive to diuretics today, positive weight balance last 24 hours. The patient was placed on a Lasix infusion, noted occasional PVCs on telemetry. Patient potassium repletion ongoing, schedule potassium PO intake increased to 50 mEq twice a day. Free water flushes placed on hold, was sodium level 145 will continue to monitor. Chest x-ray shows slight improvement. Continued management of ventilator settings ARDS protocol, maintaining PaO2 60 or greater and adjusting vent settings based on PaO2. Sedation vacation attempted today by TYPISTS SUPERVISOR, GCS 11T. Noted WBC elevation today ID consulted. 03/09: Today the patient was noted to have increasing FiO2 requirements with a PaO2 of 61. FiO2 was increased to 100%, PEEP was gradually increased to 12, then 14. The patient subsequently became hypotensive, likely due to increasing PEEP, but chest x-ray also obtained to rule out pneumothorax which was clear. The patient subsequently was laced on phenylephrine low-dose 20 mcgs which was eventually weaned off. The patient was placed on PEEP at 7 and FiO2 of 100%, sedation was weaned to lower dose. Palliative care also discussed with goals of care and the patient was made DNR. 03/10 noted creatinine elevation last night, Lasix discontinued. Dobutamine initiated per cardiology this morning. The patient continues to have high requirements on a PEEP of 8 and FiO2 of 100% his PaO2 49.2. PEEP has been increased plan to initiate Flolan. 03/11: Tmax 100.5. FRANK resolved with dobutamine infusion, heart rate 110. Microbiology report bacteremia gram-positive cocci and sputum. Patient currently on Diflucan. Will begin Linezolid in the setting of recent FRANK and oliguria, and await further recommendations from infectious disease mental hygiene consultant. Respiratory status deteriorating. The patient was placed on Flolan last night PaO2 67. Patient remains on a PEEP of 10, unable to advance secondary to hypotension. 03/12 Patient remains sedated with Diprivan, Fentanyl and intubated. On Dobutamine 2.5 mics and Flolan. Remains On PC/AC with RR 12, IP:22, IT:1.20, PEEP;10 and FIo2 90%. Afebrile. 03/13 Patient is sedated with Diprivan and Fentanyl and intubated. On PC/AC with PEEP:12, FIO2 80%. Tmax 101.7 Remains on Dobutamine and Flolan. 03/14 Patient remains sedated and intubated. On PC/AC with PEEP:12 and FIO2 100% . T: 101.5 last night. On Flolan off Dobutamine. 03/15 No acute events overnight. Sedated with Diprivan and Fentanyl. On PC/AC with PEEP: 12, FIO2 down to 70%. Tmax 101.6. On Flolan nebs. 03/16 Patient remains sedated and intubated On PC/AC with decrease in FIO2 requirements down to 65% FIO2 with PEEP: 12. Tmax 101.4. On Heparin drip. 03/17 Patient remains sedated and intubated. T: 99.7, heparin drip turned off as patient had bloody secretions with suctioning and Hemoccult was positive. 03/18 No acute events overnight. Remains sedated and intubated. Tmax 102.8. Off heparin drip patient has minimal bloody secretions. 03/19 Patient remains sedated with Diprivan and Fentanyl intubated. Afebrile. 03/20 No acute events overnight. Sedated and intubated. Tmax : 100.8. NPO for EGD and PEG tube placement today. 03/21 remains sedated, orally intubated on mechanical ventilation. Flolan inhaled stopped today. Switched to PRVC mode mechanical ventilation from PC/AC. 03/22:Remains sedated, orally intubated on mechanical ventilation. Deep decreased to +10, FiO2 55%. 03/23: Arouses on lightening sedation, moving all 4 extremities. Orally intubated on mechanical ventilation. On PEEP of +10, FiO2 50% 03/24: Sedated, arousable, orally intubated on mechanical ventilation. PEEP +10 , FiO2 60% today. 03/25: Remains sedated, orally intubated on mechanical ventilation. PEEP of +10 , FiO2 50%. Minimal blood-tinged respiratory secretions noted. Heparin drip stopped 03/25 03/26: Remains sedated, orally intubated on mechanical ventilation. PEEP remains at +10, FiO2 60%. Discussed with Dr. Bal, doubt patient can tolerate bronchoscopies hence he is planning to do tracheostomy in the OR. 03/27: Sedated, arousable, remains orally intubated on mechanical ventilation. Awaiting tracheostomy in the OR which is scheduled for tomorrow. 03/28: Sedated, arousable, remains orally intubated on mechanical ventilation at the time of my evaluation in the morning. Subsequently taken for tracheostomy 03/29: Afebrile. Patient remains sedated and intubated. He is status post tracheostomy. PEEP remains at 10,FIO2 60%. 03/30 Sedated, tracheostomy postop day 2, patient continues to have high ventilatory requirements PEEP of 10, and able to perform CPAP trials. Previously patient was noted to be bleeding from endotracheal to prior to tracheostomy. Will initiate heparin subcutaneous DVT prophylaxis, and closely monitor before beginning full anticoagulation of heparin. 03/31: Afebrile. Will begin heparin infusion today, and closely monitor for signs of bleeding. The patient was on subcutaneous heparin yesterday without any evidence of bleeding. The patient remains on a PEEP of 10 with high O2 requirements, continue attempts at weaning. 04/01: The patient was started on full anticoagulation last evening, no evidence of bleeding, remains therapeutic. FiO2 was weaned to 50%. CPAP trials are underway. Chest x-ray slightly improved today. 04/02: The patient tolerated CPAP trials for approximately 4 hours yesterday. Today CPAP trials attempted, unsuccessful. The patient continues on heparin infusion and Versed and fentanyl to maintain ventilator synchrony. 04/03: Afebrile. The patient fell CPAP trials today. He continues on Versed and fentanyl infusions for ventilator synchrony. Heparin infusion continued no active signs of bleeding. 04/04: The patient continues to fail CPAP trials .The patient gets extremely anxious and agitated when lessening the sedation. Haldol added to the medication regimen. Patient continues on heparin infusion, with no active signs of bleeding. 04/05: The patient continues to be agitated today unable to successfully apply CPAP trials . Extensive discussion with patient's , at this point she is considering withdrawal of care after talking with other family members. Positive care contacted to discuss goals of care and comfort measures process. 04/06 Patient i snow sedated with versed, Diprivan and Fentanyl. On Heparin drip. Afebrile. 04/07: The and family have requested comfort measures only to be instituted today. AICD to be at deactivated this morning, and then comfort care measures will be instituted, as per family's request. Objective Vital Signs Date Time Temp Pulse Resp B/P Pulse Ox O2 Delivery O2 Flow Rate FiO2 04/07/17 10:01 71 16 124/60 94 04/07/17 08:20 40 04/07/17 08:00 98.4 Intake and Output 04/06/17 04/06/17 04/07/17 08:00 16:00 00:00 Intake Total 930 ml 1470 ml 482 ml Output Total 300 ml 1100 ml 650 ml Balance 630 ml 370 ml -168 ml Result Diagram: 04/07/1743404/07/17 043 Imaging Last Impressions Chest X-Ray 04/05/17 06 Signed Impressions: Service Date/Time: March 03:52 - CONCLUSION: Right lower lobe infiltrate more localized than on the prior study. Garrick Hinton Jr., MD Upper Extremity Ultrasound 04/04/17 06 Signed Impressions: Service Date/Time: Tuesday, April 04, 2017 09:32 - CONCLUSION: Occlusive thrombus in both cephalic veins. The veins are patent. I cannot see more medial than the axillary veins. Artur Bob MD FACR Lower Extremity Ultrasound 04/04/17 06 Signed Impressions: Service Date/Time: Tuesday, April 04, 2017 08:54 - CONCLUSION: No DVT in either lower extremity. Fernando Mack MD CT Angiography 03/02/17 1206 Signed Impressions: Service Date/Time: Thursday, March 02, 2017 13:46 - CONCLUSION: 1. No pulmonary embolus identified. 2. Small bilateral effusions with significant dependent atelectasis bilaterally. Riley Bob MD Abdomen X-Ray 02/24/17 0000 Signed Impressions: Service Date/Time: Friday, February 24, 2017 10:43 - CONCLUSION: 1. Nasogastric tube just across the GE junction. 2. Minimal nonspecific bowel gas dilatation. Artur Bob MD FACR Objective Remarks GENERAL: Patient is 66 yo obese male sedated SKIN: Warm and dry. HEAD: Normocephalic. EYES: No scleral icterus. No injection or drainage. NECK: Supple, trachea midline. No JVD or lymphadenopathy. Tracheostomy in situ no erythema or drainage noted. Sutures in situ CARDIOVASCULAR:Tachycardic without murmurs, gallops, or rubs. RESPIRATORY: On mechanical ventilation, orally intubated, Breath sounds equal bilaterally. Scattered rhonchi GASTROINTESTINAL: Abdomen soft, non-tender, nondistended. Normoactive bowel sounds MUSCULOSKELETAL: 2+ bilateral edema in B/L upper extremities Neuro: Sedated, arousable, moves all 4 extremities on lightening sedation, Date of Removal: Mar 04, 2017 Line: Central Venous Catheter Side: Right A/P Assessment and Plan 1. Acute hypercapnic and hypoxemic respiratory failure. 2. COPD exacerbation. 3. Acute renal failure. 4. Hypernatremia 5. Obstructive sleep apnea and morbid obesity. 6. Ischemic dilated Cardiomyopathy. S/P AICD 03/2015 7. History of coronary artery disease. 8. Gastroesophageal reflux disease. 9. Hypertension. 10. Hyperlipidemia. 11 Pulm edema 12. Acute on chronic systolic and diastolic CHF 13. Pulmonary hypertension 14. Bacteremia Plan: Neuro: On Versed, Diprivan and Fentanyl infusion for sedation .Daily sedation vacation Monitor neuro status CV: Monitor HR and BP keep MAP>65mmHg. On Lopressor 12.5mg BID for rate control. On aspirin 325 milligrams p.o. daily and Plavix 75 mg p.o. daily. Prinivil 5mg daily 01/2017 Echo showed EF 40-45%, nl LV diastolic function, No RWMA Cardiology following-Dr. Cole Pulgagandeep: PRVC mode mechanical ventilation: rate 16 tidal volume 600 I time 1.2 second, PEEP 8 FiO2 45% Continue with vent support. Trached in OR by Dr. Kirkland on 03/28 Bronchodilators every 4 hours, Prednisone 20mg daily. Pulm-Dr. Stout Pulgagandeep toilet, [facility] care, SBT as kristie. CTA chest 03/02 showed no PE, small pleural effusions : Monitor renal function Is and Os and avoid nephrotoxins. Electrolytes replacement per protocol. Lasix 40mg daily d/c free water GI: On Protonix 40 mg IV daily for GI prophylaxis. TF(Glucerna 1.5 @45ml/hr. S/P PEG tube placement 03/20 Senna, Colace for bowel regimen, 02/24 KUB abdomen: Minimal non-specific bowel gas dilatation GI is following for anemia and positive Hemoccult. ID: ID following- Dr. Young. Stopped antibiotics on 03/23 (Vancomycin, Levaquin) monitor for signs of infections ( Fever, WBC) . 03/16 C-diff PCR negative 03/14: BC: NGTD 03/14: Normal resp tiffany, urine cx: No growth 03/09 Repeat Bld cultures-staph Epi, coag negative staph- likely contaminant 03/09 Repeat sputum culture-staph aureus Heme: Monitor CBC. On Heparin drip 04/04 Doppler US UE: Occlusive thrombus in both cephalic veins Endo: SSI with Accu-Chek q. 6-hour for glycemic control. GI prophylaxis with Protonix 40 mg BID and DVT prophylaxis with SCDs, and heparin infusion Doppler US UE: 03/14-Thrombus throughout the cephalic veins bilaterally. ? minimal thrombus within the left subclavian vein. 04/04 Doppler US UE : occlusive thrombus in both cephalic veins Dispo: No code DNR Palliative is following- Per family's request and patient's transitioning to comfort care today after deactivation of AICD. Level 3 Physician Rolanda Maria MD April 07, 2017 10:40
[2017-04-07] MEDS ORDERED: LORazepam 2 MG/ML VIAL IV ONE ×2 (13:15→13:45)
[2017-04-07] MEDS ORDERED: MORPHINE SULFATE 8 MG/ML INJ IV PUSH ONE (13:15)
[2017-04-07] MEDS ORDERED: HYOSCYAMINE 0.5 MG/ML AMP IV ONE (13:15)
[2017-04-07] MEDS ORDERED: LORazepam 2 MG/ML VIAL IVS PRN (13:45)
[2017-04-07] MEDS ORDERED: MORPHINE SULFATE 4 MG/ML INJ IV PRN (13:45)
[2017-04-07] MEDS ORDERED: FUROSEMIDE 20 MG/2 ML VIAL IV PRN (13:45)
[2017-04-07] MEDS ORDERED: MORPHINE SULFATE 8 MG/ML INJ IV PUSH PRN (13:45)
[2017-04-07] MEDS ORDERED: ACETAMINOPHEN 650 MG SUPP RECTAL PRN (13:45)
[2017-04-07] MEDS ORDERED: MORPHINE SULFATE 4 MG/ML INJ IV ONE (13:45)
[2017-04-07] MEDS ORDERED: BISACODYL 10 MG SUPP RECTAL PRN (13:45)
--- NOTE | 2017-04-07 15:06 | HHI.PR ---
Subjective Remarks Vent withdrawn per Family. Lethargic. On sedation. No fever. Objective Vital Signs Date Time Temp Pulse Resp B/P Pulse Ox O2 Delivery O2 Flow Rate FiO2 04/07/17 12:01 95 40 04/07/17 12:00 85 04/07/17 12:00 40 04/07/17 12:00 98.7 85 18 130/74 94 04/07/17 11:00 81 20 109/62 94 04/07/17 10:01 71 16 124/60 94 04/07/17 10:00 72 17 94 04/07/17 10:00 72 04/07/17 09:30 70 16 105/56 93 04/07/17 09:00 69 16 106/59 92 04/07/17 08:30 72 16 110/57 92 04/07/17 08:20 92 40 04/07/17 08:12 93 22 104/71 93 04/07/17 08:01 84 16 94/56 92 04/07/17 08:00 40 04/07/17 08:00 85 04/07/17 08:00 98.4 85 16 93 04/07/17 06:00 78 04/07/17 04:04 95 40 04/07/17 04:00 40 04/07/17 04:00 98.6 71 17 115/77 92 04/07/17 04:00 69 04/07/17 02:00 69 04/07/17 00:24 94 40 04/07/17 00:00 98.0 69 16 107/62 95 04/07/17 00:00 40 04/07/17 00:00 69 04/06/17 22:00 69 04/06/17 20:45 97 40 04/06/17 20:00 40 04/06/17 20:00 97.2 69 16 103/59 97 04/06/17 20:00 69 04/06/17 16:00 45 04/06/17 16:00 98.5 69 16 97/62 96 04/06/17 15:58 97 45 I/O 04/06/17 04/06/17 04/06/17 04/07/17 04/07/17 04/07/17 07:00 15:00 23:00 07:00 15:00 23:00 Intake Total 930 ml 1952 ml 704 ml Output Total 300 ml 1750 ml 400 ml Balance 630 ml 202 ml 304 ml IV Total 474 ml 1038 ml 372 ml Tube Feeding 356 ml 814 ml 332 ml Other 100 ml 100 ml Output Urine Total 300 ml 1750 ml 300 ml Stool Total 100 ml Result Diagram: 04/07/1743404/07/17434 Objective Remarks PHYSICAL EXAMINATION GENERAL: This moderately obese elderly man sleepy. HEENT: Head normocephalic. Pupils are reactive. NECK: No bruits or thyroid enlargement. CHEST: Equal movements with diminished breath sounds at the bases wheezes . HEART: The heart sounds are regular, S1 and S2. No murmur. ABDOMEN: Soft, obese, without masses. No organomegaly. Bowel sounds are faint. EXTREMITIES: No Edema with decreased pulses . NEUROLOGIC: lethargic, sedated. SKIN: Cool and dry. Assessment and Plan Assessment and Plan IMPRESSION 1. Hypercapnic respiratory failure and hypoxemic respiratory failure. 2. COPD with chronic bronchitis and acute exacerbation. 3. Congestive heart failure. 4. Cardiomyopathy with ischemic heart disease. 5. Hypertension and hyperlipidemia. 6. Possible obstructive sleep apnea. 7. pulmonary HTN. Plan : 1. T Collar 40 % 2. Wean sedation. 3. Palliative care to see. 4. D/C Tube feeds 5. D/C Lasix 6. Comfort care Bri Stout MD April 07, 2017 15:06
[2017-04-07] MEDS: MORPHINE SULFATE 4 MG/ML INJ IV SCH ×2 (16:00→20:06)
[2017-04-07] MEDS: LORazepam 2 MG/ML VIAL IV PRN ×2 (18:39→20:07)
--- NOTE | 2017-05-07 17:37 | HHI.DS ---
Summary Note Date of : April 07, 2017 Time Of : 2142 Admission Date Feb 23, 2017 at 15:54 Admitting Diagnosis respiratory failure. Acute exacerbation of COPD. Hyperkalemia. Diagnosis at Time of : (1) Acute respiratory failure ICD Code: J96.00 Diagnosis: Principal (2) Atrial flutter ICD Code: I48.92 Diagnosis: Principal (3) CAD (coronary artery disease) ICD Code: I25.10 Diagnosis: Principal (4) Hypertension ICD Code: I10 Diagnosis: Principal (5) Ischemic dilated cardiomyopathy ICD Code: I25.5 Diagnosis: Principal (6) COPD (chronic obstructive pulmonary disease) ICD Code: J44.9 Diagnosis: Principal Imaging Last Impressions Chest X-Ray 04/05/17 0600 Signed Impressions: Service Date/Time: March 03:52 - CONCLUSION: Right lower lobe infiltrate more localized than on the prior study. Garrick Hinton Jr., MD Upper Extremity Ultrasound 04/04/17 0600 Signed Impressions: Service Date/Time: Tuesday, April 04, 2017 09:32 - CONCLUSION: Occlusive thrombus in both cephalic veins. The veins are patent. I cannot see more medial than the axillary veins. Artur Bob MD [facility] Lower Extremity Ultrasound 04/04/17 0600 Signed Impressions: Service Date/Time: Tuesday, April 04, 2017 08:54 - CONCLUSION: No DVT in either lower extremity. Fernando Mack MD CT Angiography 03/02/17 1206 Signed Impressions: Service Date/Time: Thursday, March 02, 2017 13:46 - CONCLUSION: 1. No pulmonary embolus identified. 2. Small bilateral effusions with significant dependent atelectasis bilaterally. Riley Bob MD Abdomen X-Ray 02/24/17 0000 Signed Impressions: Service Date/Time: Friday, February 24, 2017 10:43 - CONCLUSION: 1. Nasogastric tube just across the GE junction. 2. Minimal nonspecific bowel gas dilatation. Artur Bob MD [facility] Hospital Course The patient is a 66-year-old male with past medical history of COPD, cardiomyopathy, hypertension, gastroesophageal reflux disease, hyperlipidemia and coronary artery disease. The patient presented to [facility] ED with a 2-week history of progressive worsening shortness of breath. On arrival to the ED he was initially placed on a non-rebreather mask and ABG was performed which showed acute hypercapnic respiratory failure with a pH of 7.14, CO2 121, pAO2 141, bicarb 40, sats 93%. His laboratory data significant for hyperkalemia with potassium level 6.0 and acute renal failure with a BUN of 43 and creatinine 2.07 respectively. The chest x-ray showed cardiomegaly and findings of vascular congestion without overt failure. In the ED the patient was intubated with etomidate and rocuronium and placed on full mechanical ventilation. In addition, he is scheduled to receive 10 units IV regular insulin, 1 amp of D50 and calcium gluconate for hyperkalemia. He received cefepime, azithromycin, Solu-Medrol 125 milligrams IV push and bronchodilator treatment. When seen the patient is on Diprivan infusion for sedation and full mechanical ventilation. Per the patient is not on any oxygen at home and he occasionally smokes cigarettes. 02/24 Patient is intubated and sedated with Diprivan and Fentanyl. Switched to PC/ AC with RR 12, IP:24, IT:1.06, PEEP: 8 and FIO2 100%. CXR this morning showed interval development of bilateral perihilar and lower lung zone airspace opacity he was given Lasix 60mg total overnight. 02/25 Patient remains sedated and intubated with Diprivan and Fentanyl. Afebrile.On PC/AC with RR 12, IP:22, IT:1.10, PEEP:10, FIO2 70%. Afebrile. Renal function worse today with Cr: 1.90 from 1.72 UO: 1150ml in 24 hrs 02/26 No acute events overnight. Sedated with Fentanyl and Diprivan and intubated. Afebrile. His O2 requirements is less now on PC/AC with IP:22, IT: 1.1 with PEEP: 10 and FIO2 55%. Renal function improving with Cr: 1.42 today from 1.90. Tolerating tube feeds. 02/27 Patient remains sedated with Diprivan and Fentanyl infusion and intubated. Afebrile. 02/28: Remains sedated, orally intubated on mechanical ventilation. Being diuresed with Bumex. Tolerating tube feeds. 03/01: Remains sedated, orally intubated on mechanical ventilation. Being diabetes. Remains on PEEP of 10 and FiO2 60% 03/02 Patient remains sedated with Diprivan and Fentanyl and intubated. On PC/AC with PEEP: 10 and FIO2 80% overnight and sats 93-94%. Afebrile. 03/03: The patient remains on high respiratory requirements PEEP of 10, and FiO2 70%. 03/04: Tmax 99.9. Overnight the patient was noted to have desaturations the patient received a bolus of midazolam and fentanyl for ventilator dyssynchrony. The patient was redosed with Diamox with approximately 2.5 L diuresis in the last 12 hours. The patient continues on an FiO2 of 70% with PEEP of 10 to maintain an O2 sat of 90%. 03/05: Afebrile. Patient's FiO2 remains at 60% to maintain O2sat ranging in 92% . Future plans for tracheostomy discussed with when ventilator requirements are decreased. Patient currently is on a PEEP of 10. Patient receiving multiple doses of diuretics chest x-ray still showing increased vascular congestion. Cardiology following metalazone added to medication regimen per cardiology for diuresis. 03/06: Patient's O2 requirements were increased overnight to FiO2 of 90%. The patient's FiO2 has been decreased now currently to 70% O2 sat is 90% ABG is pending. The patient's diuresis effective, 1 kg weight loss in 24 hours. 03/07: The patient continues to have effective diuresis. The patient's O2 requirements currently FiO2 is 70% to maintain a sat of 90-91%. Discussion with Ms. London yesterday, she would like to discuss with palliative team goals of care. Palliative care consult initiated. 03/08: The patient was less responsive to diuretics today, positive weight balance last 24 hours. The patient was placed on a Lasix infusion, noted occasional PVCs on telemetry. Patient potassium repletion ongoing, schedule potassium PO intake increased to 50 mEq twice a day. Free water flushes placed on hold, was sodium level 145 will continue to monitor. Chest x-ray shows slight improvement. Continued management of ventilator settings ARDS protocol, maintaining PaO2 60 or greater and adjusting vent settings based on PaO2. Sedation vacation attempted today by LEAD ACCOUNTANT, GCS 11T. Noted WBC elevation today ID consulted. 03/09: Today the patient was noted to have increasing FiO2 requirements with a PaO2 of 61. FiO2 was increased to 100%, PEEP was gradually increased to 12, then 14. The patient subsequently became hypotensive, likely due to increasing PEEP, but chest x-ray also obtained to rule out pneumothorax which was clear. The patient subsequently was laced on phenylephrine low-dose 20 mcgs which was eventually weaned off. The patient was placed on PEEP at 7 and FiO2 of 100%, sedation was weaned to lower dose. Palliative care also discussed with goals of care and the patient was made DNR. 03/10 noted creatinine elevation last night, Lasix discontinued. Dobutamine initiated per cardiology this morning. The patient continues to have high requirements on a PEEP of 8 and FiO2 of 100% his PaO2 49.2. PEEP has been increased plan to initiate Flolan. 03/11: Tmax 100.5. FRANK resolved with dobutamine infusion, heart rate 110. Microbiology report bacteremia gram-positive cocci and sputum. Patient currently on Diflucan. Will begin Linezolid in the setting of recent FRANK and oliguria, and await further recommendations from infectious disease spa consultant. Respiratory status deteriorating. The patient was placed on Flolan last night PaO2 67. Patient remains on a PEEP of 10, unable to advance secondary to hypotension. 03/12 Patient remains sedated with Diprivan, Fentanyl and intubated. On Dobutamine 2.5 mics and Flolan. Remains On PC/AC with RR 12, IP:22, IT:1.20, PEEP;10 and FIo2 90%. Afebrile. 03/13 Patient is sedated with Diprivan and Fentanyl and intubated. On PC/AC with PEEP:12, FIO2 80%. Tmax 101.7 Remains on Dobutamine and Flolan. 03/14 Patient remains sedated and intubated. On PC/AC with PEEP:12 and FIO2 100% . T: 101.5 last night. On Flolan off Dobutamine. 03/15 No acute events overnight. Sedated with Diprivan and Fentanyl. On PC/AC with PEEP: 12, FIO2 down to 70%. Tmax 101.6. On Flolan nebs. 03/16 Patient remains sedated and intubated On PC/AC with decrease in FIO2 requirements down to 65% FIO2 with PEEP: 12. Tmax 101.4. On Heparin drip. 03/17 Patient remains sedated and intubated. T: 99.7, heparin drip turned off as patient had bloody secretions with suctioning and Hemoccult was positive. 03/18 No acute events overnight. Remains sedated and intubated. Tmax 102.8. Off heparin drip patient has minimal bloody secretions. 03/19 Patient remains sedated with Diprivan and Fentanyl intubated. Afebrile. 03/20 No acute events overnight. Sedated and intubated. Tmax : 100.8. NPO for EGD and PEG tube placement today. 03/21 remains sedated, orally intubated on mechanical ventilation. Flolan inhaled stopped today. Switched to PRVC mode mechanical ventilation from PC/AC. 03/22:Remains sedated, orally intubated on mechanical ventilation. Deep decreased to +10, FiO2 55%. 03/23: Arouses on lightening sedation, moving all 4 extremities. Orally intubated on mechanical ventilation. On PEEP of +10, FiO2 50% 03/24: Sedated, arousable, orally intubated on mechanical ventilation. PEEP +10 , FiO2 60% today. 03/25: Remains sedated, orally intubated on mechanical ventilation. PEEP of +10 , FiO2 50%. Minimal blood-tinged respiratory secretions noted. Heparin drip stopped 03/25 03/26: Remains sedated, orally intubated on mechanical ventilation. PEEP remains at +10, FiO2 60%. Discussed with Dr. Bal, doubt patient can tolerate bronchoscopies hence he is planning to do tracheostomy in the OR. 03/27: Sedated, arousable, remains orally intubated on mechanical ventilation. Awaiting tracheostomy in the OR which is scheduled for tomorrow. 03/28: Sedated, arousable, remains orally intubated on mechanical ventilation at the time of my evaluation in the morning. Subsequently taken for tracheostomy 03/29: Afebrile. Patient remains sedated and intubated. He is status post tracheostomy. PEEP remains at 10,FIO2 60%. 03/30 Sedated, tracheostomy postop day 2, patient continues to have high ventilatory requirements PEEP of 10, and able to perform CPAP trials. Previously patient was noted to be bleeding from endotracheal to prior to tracheostomy. Will initiate heparin subcutaneous DVT prophylaxis, and closely monitor before beginning full anticoagulation of heparin. 03/31: Afebrile. Will begin heparin infusion today, and closely monitor for signs of bleeding. The patient was on subcutaneous heparin yesterday without any evidence of bleeding. The patient remains on a PEEP of 10 with high O2 requirements, continue attempts at weaning. 04/01: The patient was started on full anticoagulation last evening, no evidence of bleeding, remains therapeutic. FiO2 was weaned to 50%. CPAP trials are underway. Chest x-ray slightly improved today. 04/02: The patient tolerated CPAP trials for approximately 4 hours yesterday. Today CPAP trials attempted, unsuccessful. The patient continues on heparin infusion and Versed and fentanyl to maintain ventilator synchrony. 04/03: Afebrile. The patient fell CPAP trials today. He continues on Versed and fentanyl infusions for ventilator synchrony. Heparin infusion continued no active signs of bleeding. 04/04: The patient continues to fail CPAP trials .The patient gets extremely anxious and agitated when lessening the sedation. Haldol added to the medication regimen. Patient continues on heparin infusion, with no active signs of bleeding. 04/05: The patient continues to be agitated today unable to successfully apply CPAP trials . Extensive discussion with patient's , at this point she is considering withdrawal of care after talking with other family members. [facility] care contacted to discuss goals of care and comfort measures process. 04/06 Patient i snow sedated with versed, Diprivan and Fentanyl. On Heparin drip. Afebrile. 04/07: The and family have requested comfort measures only to be instituted today. AICD to be at deactivated this morning, and then comfort care measures will be instituted, as per family's request. 04/07: This evening comfort measures in place, the patient at 2143. Rolanda Licona MD May 07, 2017 17:37
== END 2017-04-07 21:43 | disposition expired | DRG 4 ==
LOC: NEPA 13:17 → NEDA 15:54 → HIME 18:20
PROVIDERS: ADMIT Internal Medicine Critical Care Medicine; ATTEND Internal Medicine Critical Care Medicine
PROC: 5A1955Z Respiratory Ventilation, Greater than 96 Consecutive Hours (ICD-10-PCS; 2017-02-23)
PROC: 0BH17EZ Insertion of Endotracheal Airway into Trachea, Via Natural or Artificial Opening (ICD-10-PCS; 2017-02-23)
PROC: 05HM33Z Insertion of Infusion Device into Right Internal Jugular Vein, Percutaneous Approach (ICD-10-PCS; 2017-02-27)
PROC: 0DH63UZ Insertion of Feeding Device into Stomach, Percutaneous Approach (ICD-10-PCS; 2017-03-20)
PROC: 5A1955Z Respiratory Ventilation, Greater than 96 Consecutive Hours (ICD-10-PCS; 2017-03-28)
PROC: 0B113F4 Bypass Trachea to Cutaneous with Tracheostomy Device, Percutaneous Approach (ICD-10-PCS; principal; 2017-03-28 14:59)
DX: J96.02 Acute respiratory failure with hypercapnia (principal); N17.9 Acute kidney failure, unspecified; E87.0 Hyperosmolality and hypernatremia; I50.43 Acute on chronic combined systolic (congestive) and diastolic (congestive) heart failure; J18.9 Pneumonia, unspecified organism; I42.0 Dilated cardiomyopathy; E66.01 Morbid (severe) obesity due to excess calories; I11.0 Hypertensive heart disease with heart failure; I48.92 Unspecified atrial flutter; J44.0 Chronic obstructive pulmonary disease with (acute) lower respiratory infection; R78.81 Bacteremia; J44.1 Chronic obstructive pulmonary disease with (acute) exacerbation; I82.613 Acute embolism and thrombosis of superficial veins of upper extremity, bilateral; K92.1 Melena; I48.91 Unspecified atrial fibrillation; I27.2 Other secondary pulmonary hypertension; E87.5 Hyperkalemia; G47.33 Obstructive sleep apnea (adult) (pediatric); E78.5 Hyperlipidemia, unspecified; K21.9 Gastro-esophageal reflux disease without esophagitis; J96.01 Acute respiratory failure with hypoxia; F17.210 Nicotine dependence, cigarettes, uncomplicated; I25.5 Ischemic cardiomyopathy; D64.9 Anemia, unspecified; I25.10 Atherosclerotic heart disease of native coronary artery without angina pectoris; B95.61 Methicillin susceptible Staphylococcus aureus infection as the cause of diseases classified elsewhere; Z95.1 Presence of aortocoronary bypass graft; Z95.810 Presence of automatic (implantable) cardiac defibrillator; Z95.5 Presence of coronary angioplasty implant and graft; Z68.29 Body mass index [BMI] 29.0-29.9, adult; Z51.5 Encounter for palliative care; Z66 Do not resuscitate
CPT/HCPCS: 31500; 36556; 36600; 51702; 71010; 71275; 74000; 76937; 80048; 80053; 80076; 80202; 81001; 82272; 82550; 82552; 82565; 82805; 82948; 83735; 83880; 84100; 84132; 84484; 85007; 85025; 85027; 85610; 85730; 86403; 87040; 87070; 87077; 87086; 87186; 87205; 87493; 87641; 93005; 93306; 93970; 94002; 94003; 94640; 94664; 94799; 96365; 96368; 96375; A7521; C1769; C9113; J0330; J0456; J0610; J0692; J0696; J1100; J1120; J1130; J1250; J1325; J1644; J1815; J1940; J1956; J1980; J2020; J2060; J2250; J2270; J2370; J2543; J2920; J2930; J3010; J3370; J3480; J7030; J7040; J7050; J7512; P9045; P9047; Q9967